=== PATIENT | female | born 1940 | race Caucasian/White ===

== ENCOUNTER 2020-01-30 15:42 | Outpatient (CLI) | payer OTHER, SELFPAY ==
--- NOTE | ~2020-01-30 | US_ITS ---
US venous doppler [facility] DATE: 01/30/2020 17:29 INDICATION: Left lower extremity pain TECHNIQUE: Real-time and color flow imaging and Doppler analysis of the veins of the left lower extre mity COMPARISON: None FINDINGS: The left greater saphenous vein is patent. There is spontaneous and phasic flow and normal augmentation and compression of the deep veins of the left lower extremity. IMPRESSION: No evidence of deep venous thrombosis of the left lower extremity Reviewed, dictated and finalized at Location [facility]. Reviewed, dictated and finalized at location A.
== END 2020-01-30 15:43 | disposition home or self-care (01) ==
PROVIDERS: PCP Family Medicine; Visit Provider Physician Assistant
DX: E66.9 Obesity, unspecified (principal); M79.606 Pain in leg, unspecified; M79.89 Other specified soft tissue disorders
CPT/HCPCS: 93971

== ENCOUNTER → 2020-02-29 11:05 | Outpatient (CLI) | payer OTHER, SELFPAY ==
--- NOTE | ~2020-02-29 | DEXA_ITS ---
Bone Density Report Name: Klaudia Larry Age: 79 Sex: Female Ethnicity: White Date of : 1940 Indication: postmenopausal; screening for osteoporosis; Referring Provider: Yumiko Diaz Study: Bone densitometry was performed. Exam Date: February 29, 2020 Accession number: [id number] Bone Density: Region BMD T-score Z-score Classification AP Spine (L2, L3, L4) 1.176 0.9 3.6 Normal Femoral Neck (Left) 0.837 -0.1 2.2 Normal Total Hip (Left) 0.941 0.0 2.0 Normal Femoral Neck (Right) 0.766 -0.7 1.5 Normal Total Hip (Right) 1.047 0.9 2.9 Normal Total Hip Mean 0.994 0.5 2.5 Normal World Health Organization criteria for BMD impression classify patients as: Normal (T-score at or above -1.0), Osteopenia (T-score between -1.0 and -2.5), or Osteoporosis (T-score at or below -2.5). 10-year Fracture Risk: FRAX not reported because: All T-scores for Spine Total, Hip Total, Femoral Neck at or above -1.0 Previous Exams: Region Exam Age BMD T-score BMD Change BMD Change Date g/cm2 vs Baseline vs Previous AP Spine(L2, L3, L4) 02/29/2020 79 1.176 0.9 -0.025 0.002 11/14/2016 76 1.174 0.9 -0.026 -0.041* 07/09/2011 71 1.215 1.2 0.015 0.015 03/26/2009 68 1.200 1.1 Total Hip(Left) 02/29/2020 79 0.941 0.0 -0.071 -0.037* 11/14/2016 76 0.978 0.3 -0.034 -0.059* 07/09/2011 71 1.037 0.8 0.025 0.025 03/26/2009 68 1.012 0.6 Total Hip(Right) 02/29/2020 79 1.047 0.9 0.099 -0.021 11/14/2016 76 1.067 1.0 0.120 0.061* 07/09/2011 71 1.006 0.5 0.058 0.058 03/26/2009 68 0.948 0.0 *Denotes significance at 95% confidence level, LSC for AP Spine = 0.022 g/cm2, LSC for Total Hip = 0.027 g/cm2 Clinical Information Provided by Patient: Patient maximum height was 66 Menopause Age: 50 No regular weight bearing exercise Does not regularly consume dairy products Drinks caffeinated beverages Onset of menses at age 13 Number of children 2 Impression: The patient has normal bone mass. The BMD for the Total Hip(Left) decreased, changing by -0.037 since the last DXA exam. Discussion: BONE DENSITY IS ABOVE THE MINIMUM DESIRABLE LEVEL AT ALL SKELETAL SITES TESTED. This patient?s bone mineral density is above the minimum desirable level (T-score -
== END ==
PROVIDERS: PCP Family Medicine; Visit Provider Physician Assistant
DX: Z78.0 Asymptomatic menopausal state (principal)
CPT/HCPCS: 77080

== ENCOUNTER 2020-12-05 15:11 | Outpatient (CLI) | payer OTHER, SELFPAY ==
--- NOTE | ~2020-12-05 | XR_ITS ---
XR lumbar spine 2-3V DATE: 12/05/2020 15:47 INDICATION: Back pain, lumbar radiculopathy. TECHNIQUE: AP, lateral, coned lateral lumbosacral views COMPARISON: 08/15/2013 lumbar spine FINDINGS: There is diffuse osteopenia. There is mild levoscoliosis of the lower thoracic and lumbar spine. Diffuse idiopathic skeletal hyperostosis of the thoracic spine. Status post vertebroplasty at compression fracture at the first functional lumbar vertebra. No interval fracture or evidence of bone destruction since 08/15/2013. The lumbar pedicles are intact. Lumbar and lumbosacral interspaces are relatively well preserved, with minimal degenerative spurring of the lumbar spine. The sacroiliac joints are unremarkable. IMPRESSION: Mild levoscoliosis Status post vertebroplasty at L1 chronic compression fracture No significant change since 08/15/2013 Reviewed, dictated and finalized at location A.
== END 2020-12-05 15:12 | disposition home or self-care (01) ==
PROVIDERS: PCP Family Medicine; Visit Provider Nurse Practitioner Family
DX: M54.16 Radiculopathy, lumbar region (principal); M41.9 Scoliosis, unspecified; M48.56XA Collapsed vertebra, not elsewhere classified, lumbar region, initial encounter for fracture
CPT/HCPCS: 72100

== ENCOUNTER 2022-03-01 12:59 | Outpatient (CLI) | payer OTHER, SELFPAY ==
--- NOTE | ~2022-03-01 | XR_ITS ---
EXAMINATION: XR chest 2V Exam Date/Time: 03/01/2022 13:20 CDT HISTORY: R05.9 - Cough, unspecified x 1.5 WEEKS Comparison: None available. RESULT: Lines, tubes, and devices: Vertebral body cement at the thoracolumbar junction. Lungs and pleura: Senescent change. Bibasilar atelectasis. Scattered peripheral reticulonodular opac ities. Cardiomediastinal silhouette: Stable. Other: No acute osseous or upper abdominal finding. IMPRESSION: Pulmonary opacities may represent bronchiolitis, as can be seen with atypical infection, asthma, aspi ration, and small airways disease. Reviewed, dictated and finalized at location K. IMPRESSION: Pulmonary opacities may represent bronchiolitis, as can be seen with atypical i nfection, asthma, aspiration, and small airways disease.
== END 2022-03-01 13:00 | disposition home or self-care (01) ==
PROVIDERS: PCP Family Medicine; Visit Provider Physician Assistant
DX: R05.9 Cough, unspecified (principal); R91.8 Other nonspecific abnormal finding of lung field
CPT/HCPCS: 71046

== ENCOUNTER 2024-04-30 09:58 | Inpatient (IN) | payer OTHER, SELFPAY ==
[2024-04-30] VITALS (35 sets, daily range): BP systolic 86–128; BP diastolic 55–106; PULSE 92–147; RESP 17–33; TEMP 36.1–36.6; O2SAT 72–100; BMI 41.8; BMI 48.4
--- NOTE | ~2024-04-30 | XR_ITS ---
XR chest 1V DATE: 04/30/2024 11:35 INDICATION: Dyspnea TECHNIQUE: AP views on 04/30/2024 at 2330 and 2332 hours COMPARISON: 04/30/2024 CTA chest abdomen pelvis FINDINGS: Cardiomegaly aortic arch calcification. Mild lower lobe infiltrates and/or atelectasis. Moderate pleural effusions are demonstrated to better advantage on the CT examination today. Status post vertebroplasty at T12. Dextroscoliosis and diffuse idiopathic skeletal hyperostosis of the thoracic spine. IMPRESSION: Moderate pleural effusions, better demonstrated on CT examination today Bilateral lower lobe infiltrate and/or atelectasis Cardiomegaly, aortic atherosclerosis Status post vertebroplasty at T12 fracture Reviewed, dictated and finalized at location A. F LOAD DISPATCHER IMPRESSION: Moderate pleural effusions, better demonstrated on CT examination t deysi Bilateral lower lobe infiltrate and/or atelectasis Cardiomegaly, aortic atherosclerosis Status post vertebroplasty at T12 fracture
--- NOTE | ~2024-04-30 | CT_ITS ---
EXAMINATION: CTA chest PE abdomen pel DATE: 04/30/2024 11:28 INDICATION: Hypoxia TECHNIQUE: Computed tomography angiography (CTA) of the chest was performed with 100 mL Omnipaque-350 intravenous contrast timed to evaluate the pulmonary arteries. Coronal maximum intensity projection 3D-reconstructions were created by the technologist. Automated exposure control and iterative reconst ruction technique were employed. Exam dose: 2456.46 mGy-cm total exam DLP. COMPARISON: 03/01/2022 PA and lateral chest FINDINGS: There is diagnostic contrast enhancement of the pulmonary arteries. There is mild pulmonary embolism involving the right upper and middle lobes. There is thoracic aortic calcification but no thoracic aortic aneurysm or dissection. There is enlargement of the lower pole of the left then the thyroid gland which extends into the supe rior mediastinum. No hilar or mediastinal mass lesion or lymphadenopathy is noted otherwise. Cardiomegaly. No pericardial effusion. There are moderate bilateral pleural effusions. There are bilateral lower lobe infiltrates as well as compressive atelectasis of both lower lobes sec ondary to the effusions. There is minimal dependent left upper lobe atelectasis. Status post cholecystectomy. No hepatic, splenic, pancreatic, adrenal space-occupying mass lesion. No bile duct or pancreatic duct dilatation is detected. 1 cm upper pole right renal cyst Approximately 3 mm nonobstructing right renal calculus. 3.4 cm exophytic left renal cyst. No ureteral calculus or hydroureteronephrosis is noted on either side. There is atherosclerotic calcification but normal caliber of the abdominal aorta. No intraperitoneal or retroperitoneal or pelvic mass lesion or adenopathy or ascites is noted. The urinary bladder is relatively evacuated and not optimally evaluated as a result. 2.4 cm probable serosal fibroid of the anterolateral left uterine body. No evidence of appendicitis. No bowel obstruction or intraperitoneal free air. Diffuse idiopathic skeletal hyperostosis of the thoracic spine Status post vertebroplasty at burst fracture deformity at T12. Prominent degenerative change at the possible joints of the lumbar spine with associated grade 1 ante rolisthesis at L4-5. Approximately 1 cm sclerotic lesion of the left iliac crest, 1.9 cm sclerotic lesion of the right kelly ac crest, most likely benign bone islands IMPRESSION: Mild pulmonary embolism involving right upper and middle lobes Left thyroid enlargement Cardiomegaly Moderate bilateral pleural effusions Bilateral lower lobe infiltrates and atelectasis Status post cholecystectomy Bilateral renal cysts 3 mm nonobstructing right renal calculus Status post vertebroplasty at burst fracture of T12 Reviewed, dictated and finalized at Location [facility]. Reviewed, dictated and finalized at location A. SORTER
--- NOTE | 2024-04-30 10:12 | ECG_ITS ---
Test Date: 2024-04-30 10:20:05 Measurements Intervals [place] Rate: 141 P: 0 RI: 0 QRS: -45 QRSD: 94 T: 57 QT: 273 QTc: 419 Interpretive Statements ATRIAL FIBRILLATION WITH RAPID VENTRICULAR RESPONSE VENTRICULAR COUPLET AND VENTRICULAR PREMATURE COMPLEXES LEFT AXIS DEVIATION LOW QRS VOLTAGE IN LIMB LEADS ANTEROSEPTAL INFARCT, AGE INDETERMINATE INFERIOR INFARCT, AGE INDETERMINATE BASELINE ARTIFACT- I, II, III, AVR, AVL, AVF, V1-V3 ABNORMAL ECG No previous ECG available for comparison Electronically Signed On 04-30-2024 14:02:18 NURSING SCHEDULER by Ryland Mckeon D.O.
[2024-04-30 10:31] LABS: Basophils Absolute Auto 0.1 K/mm3 (0.0-0.1); Basophils Percent Auto 0.7 % (0.2-1.2); Eosinophils Absolute Auto 0.2 K/mm3 (0-0.3); Eosinophils Percent Auto 1.6 % (0-4.4); Hematocrit 43.3 % (37.0-47.0); Hemoglobin 13.3 g/dL (12.0-15.0); Immature Granulocyte Absolute 0.04 K/mm3 (0.00-0.031); Immature Granulocyte Percent A 0.4 % (0-0.5); Lymphocytes Percent Auto 25.1 % (18.3-44.2); Mean Corpuscular HGB Conc 30.7 g/dl (32-36); Mean Corpuscular Hemoglobin 32.3 pg (26-34); Mean Corpuscular Volume 105.1 fl (80-100); Mean Platelet Volume 11.1 fl (7.4-10.4); Monocytes Absolute Auto 0.6 K/mm3 (0.1-0.6); Monocytes Percent Auto 5.9 % (2.6-8.5); Neutrophils Absolute Auto 6.6 K/mm3 (1.3-6.7); Neutrophils Percent Auto 66.3 % (45.5-73.1); Platelet Count Result 200 k/mm3 (150-375); Red Blood Count 4.12 M/mm3 (4.2-5.4); Red Cell Distribution Width 14.2 % (11.5-14.5)
[2024-04-30] MEDS: SODIUM CHLORIDE 0.9% IV 1,000 ML 999 ML IV CONT ×2 (10:38→12:23)
[2024-04-30 10:40] LABS: Lactic Acid Reflex 3.7 mmol/L (0.7-2.0)
[2024-04-30] MEDS: IPRATROPIUM 0.5 MG/ALBUTEROL SULFATE 2.5 MG AMPUL.NEB 3 ML INHALATION (10:40)
[2024-04-30 10:41] LABS: Alanine Aminotransferase 13 U/L (6-35); Alkaline Phosphatase 66 U/L (38-126); Anion Gap 8 mmol/L (4-12); Aspartate Amino Transferase 23 U/L (14-36); Bilirubin,Total 0.5 mg/dL (0.2-1.3); Blood Urea Nitrogen 15 mg/dL (7-17); Carbon Dioxide 26 mmol/L (22-30); Chloride 103 mmol/L (98-107); Estimated CRCL calculation 25 ml/min; Estimated Glomerular Filt Rate 25; Glucose 180 mg/dL (65-110); Magnesium 1.9 mg/dL (1.6-2.3); Potassium 4.4 mmol/L (3.4-5.0); Sodium 137 mmol/L (137-145)
[2024-04-30 10:51] LABS: Macrocytosis 1+ (NORMAL); Platelet Estimate Adequate (Adequate); Poikilocytosis 1+; Schistocytes None Seen
[2024-04-30 10:53] LABS: NT Pro B Type Natriuretic Pept 3020 pg/mL (19.9-100); Troponin I 0.023 ng/mL (0.000-0.034)
--- NOTE | 2024-04-30 10:57 | ED.GENADULT ---
HPI - General Adult General Chief complaint: Unspecified Stated complaint: constipation, not sleeping, abd pain, cough Time Seen by Provider: 04/30/24 10:14 Source: patient Mode of arrival: ambulatory Limitations: no limitations History of Present Illness HPI narrative: Is an 84-year-old female with history of hypertension, anxiety, presents emergency department complaining shortness of breath and the sensation of passing. The patient states she difficulty sleeping over night. She attempted to take 1 of her blood pressure medications accidentally took a dose of tramadol. She complains intermittent lightheadedness and difficulty breathing. She also complains of abdominal pain and distension those able to pass gas and denies blood in stool. She denies chest pain lower extremity swelling, fevers, or chills. She has no other complaints at this time. Related Data Home Medications Medication Instructions Recorded Confirmed aspirin 81 mg tablet,delayed 81 mg PO DAILY 02/20/21 02/24/24 release (Adult Aspirin Regimen) tolterodine 4 mg capsule,extended 4 mg PO DAILY 03/09/23 02/24/24 release 24 hr Allergies Allergy/AdvReac Type Severity Reaction Status Date / Time alendronate sodium Allergy Unknown gastritis Verified 04/30/24 10:35 pravastatin Allergy Unknown unknown Verified 04/30/24 10:35 No Known Allergies Allergy Verified 04/30/24 10:35 Review of Systems Review of Systems: All systems reviewed & are unremarkable except as noted in HPI and below PMFSH Past Medical History Medical History (Updated 04/30/24 @ 14:11 by Efrain Mathews MD) Allergic sinusitis Anxiety Body mass index (BMI) 40.0-44.9, adult Chronic kidney disease, stage 3a Chronic low back pain Diffuse idiopathic skeletal hyperostosis Esophageal web Gastro-esophageal reflux disease without esophagitis Generalized anxiety disorder History of tobacco use Keratolysis exfoliativa Morbid obesity due to excess calories Obesity hypoventilation syndrome Opioid dependence with current use Peripheral vascular disease, unspecified Pre-diabetes Schatzki's ring Spondylosis with myelopathy, lumbar region Surgical History Surgical History (Updated 04/30/24 @ 13:59 by Maricel Priest PA-C) History of colonoscopy with polypectomy History of esophageal dilatation History of meniscectomy of right knee History of vertebroplasty Family History Family History Mother Asthma Patient's mother is in good health Sibling Patient's sister is in good health Patient's brother is in good health Other Family history of arthritis Social History Social History (Updated 04/30/24 @ 13:59 by Maricel Priest PA-C) Social History: Surrogate medical decision maker: Code status: Full code. Smoking packs per day: 2 Smoking cigarettes per day: 40.0 Years smoked: 10 Smoking pack-years: 20.00 Smoking status: Former smoker Tobacco type: cigarettes Second hand tobacco smoke exposure: No Smoking end date: 06/01/01 Alcohol intake: never Substance use: never Substance use type: does not use Lack of Transportation: No Lack of Food: Never True Current Housing: I Have Housing Concerned About Future Housing: No Difficulty Paying Gas/Electric Bills: No Difficulty Paying for Meds: No Currently Unemployed: YES Education: High School Diploma/GED Difficulty w/ Childcare or Family Care: No Living arrangements: with family Occupation/Education: retired Spiritual care concerns: No Agree to blood products: Yes Exam Narrative: GENERAL: Well-developed, well-nourished, and in no acute distress. Very anxious HEAD: Normocephalic, atraumatic. EYES: PERRLA and EOMI. NECK: Supple. No JVD CHEST: Clear to auscultation. No respiratory distress. No wheezes rales or rhonchi HEART: Irregularly irregular rhythm. No murmur heard. Normal peripheral pulses. ABDOMEN: Soft, tender to palpation in the suprapubic and right lower quadrant without rebound or guarding, mildly distended, normal active bowel sounds. EXTREMITIES: Normal range of motion. No edema. SKIN: Warm, dry, no rash. NEURO: Alert and oriented x3. No focal deficit. Moving all 4 limbs spontaneously PSYCH: Normal mood and affect. Course Course Emergency Course: 10:15 - The patient's exam and lightheadedness is concerning for PE verses new onset CHF. I have low suspicion for sepsis at this time. Will give IV fluids cautiously, obtain CT PE be and re-evaluate. 13:34 - CT PE demonstrates right middle lobe PE as well as lower lobe infiltrates concerning for infection and bilateral pleural effusions. I suspect a combination of pneumonia and PE. The patient's heart rate improved with BiPAP and 5 mg IV metoprolol. Her blood pressure is improved to 120 3/98 with IV fluids. Initial lactic 3.7 with creatinine elevated to 1.9 with a baseline of 1.2. White blood cell count not elevated at 10 hemoglobin hematocrit within normal limits and platelets 200. The patient has a negative for COVID influenza. Considering the infiltrates seen on CT will start antibiotics and heparin for PEs. I discussed the patient with hospitalist ZORA Priest who accepts admission. Vital Signs Vital signs: Vital Signs Temperature 97.6 F 04/30/24 10:09 Pulse Rate 140 H 04/30/24 10:09 Respiratory Rate 26 H 04/30/24 10:09 Blood Pressure 96/68 L 04/30/24 10:09 Pulse Oximetry 72 L 04/30/24 10:09 Oxygen Delivery Room Air 04/30/24 10:09 Temperature 97.6 F 04/30/24 10:09 Pulse Rate 126 H 04/30/24 12:23 Respiratory Rate 32 H 04/30/24 12:20 Blood Pressure 128/95 H 04/30/24 10:27 Pulse Oximetry 98 04/30/24 12:20 Oxygen Delivery BiPAP 04/30/24 12:20 Oxygen Flow Rate 6 04/30/24 10:40 Fraction of Inspired Oxygen 40 04/30/24 12:20 Medical Decision Making [facility] Narrative Medical decision making narrative: Plan: Labs, imaging, EKG, troponin, IV fluids, reassess Differential Diagnosis Differential Diagnosis: PE, ACS, new onset CHF, renal failure, bowel obstruction, metabolic abnormality Vital Signs Vital Signs: Vital Signs Temperature 97.6 F 04/30/24 10:09 Pulse Rate 140 H 04/30/24 10:09 Respiratory Rate 26 H 04/30/24 10:09 Blood Pressure 96/68 L 04/30/24 10:09 Pulse Oximetry 72 L 04/30/24 10:09 Oxygen Delivery Room Air 04/30/24 10:09 Temperature 97.6 F 04/30/24 10:09 Pulse Rate 126 H 04/30/24 12:23 Respiratory Rate 32 H 04/30/24 12:20 Blood Pressure 128/95 H 04/30/24 10:27 Pulse Oximetry 98 04/30/24 12:20 Oxygen Delivery BiPAP 04/30/24 12:20 Oxygen Flow Rate 6 04/30/24 10:40 Fraction of Inspired Oxygen 40 04/30/24 12:20 Lab Data 04/30/24 10:24 04/30/24 10:24 Labs: Lab Results 04/30/24 04/30/24 04/30/24 Range/Units 10:24 10:24 10:24 WBC 10.0 (4.5-10.0) K/mm3 RBC 4.12 L (4.2-5.4) M/mm3 Hgb 13.3 (12.0-15.0) g/dL Hct 43.3 (37.0-47.0) % MCV 105.1 H (80-100) fl MCH 32.3 (26-34) pg MCHC 30.7 L (32-36) g/dl RDW 14.2 (11.5-14.5) % Plt Count 200 (150-375) k/mm3 MPV 11.1 H (7.4-10.4) fl Immature Gran % (Auto) 0.4 (0-0.5) % Neut % (Auto) 66.3 (45.5-73.1) % Lymph % (Auto) 25.1 (18.3-44.2) % Tyrrell % (Auto) 5.9 (2.6-8.5) % Eos % (Auto) 1.6 (0-4.4) % Baso % (Auto) 0.7 (0.2-1.2) % Lymph # (Auto) 2.50 (0.9-3.2) K/mm3 Tyrrell # (Auto) 0.6 (0.1-0.6) K/mm3 Eos # (Auto) 0.2 (0-0.3) K/mm3 Baso # (Auto) 0.1 (0.0-0.1) K/mm3 Abs Immat Gran (auto) 0.04 H (0.00-0.031) K/mm3 Absolute Neuts (auto) 6.6 (1.3-6.7) K/mm3 Absolute Nucleated RBC 0.000 (0.0-0.012) K/mm3 Nucleated RBC % 0.0 (0.0-0.2) % Platelet Estimate Adequate (Adequate) Poikilocytosis 1+ Macrocytosis 1+ (NORMAL) Schistocytes None seen PT 14.1 (11.1-14.7) Seconds INR 1.1 APTT 26.0 (22.3-36.8) Seconds Sodium Cancelled 137 Potassium Cancelled 4.4 Chloride Cancelled Carbon Dioxide Anion Gap BUN Creatinine Estim Creat Clear Calc Estimated GFR Glucose Lactic Acid (0.7-2.0) mmol/L Calcium Magnesium (1.6-2.3) mg/dL Total Bilirubin AST ALT Alkaline Phosphatase Troponin I (0.000-0.034) ng/mL NT-Pro-B Natriuret Pep (19.9-100) pg/mL Total Protein Albumin Influenza A (RT-PCR) (Negative) Influenza B (RT-PCR) (Negative) SARS-CoV-2 RNA (RT-PCR) (Negative) 04/30/24 04/30/24 04/30/24 Range/Units 10:24 10:24 10:24 WBC (4.5-10.0) K/mm3 RBC (4.2-5.4) M/mm3 Hgb (12.0-15.0) g/dL Hct (37.0-47.0) % MCV (80-100) fl MCH (26-34) pg MCHC (32-36) g/dl RDW (11.5-14.5) % Plt Count (150-375) k/mm3 MPV (7.4-10.4) fl Immature Gran % (Auto) (0-0.5) % Neut % (Auto) (45.5-73.1) % Lymph % (Auto) (18.3-44.2) % Tyrrell % (Auto) (2.6-8.5) % Eos % (Auto) (0-4.4) % Baso % (Auto) (0.2-1.2) % Lymph # (Auto) (0.9-3.2) K/mm3 Tyr[place] # (Auto) (0.1-0.6) K/mm3 Eos # (Auto) (0-0.3) K/mm3 Baso # (Auto) (0.0-0.1) K/mm3 Abs Immat Gran (auto) (0.00-0.031) K/mm3 Absolute Neuts (auto) (1.3-6.7) K/mm3 Absolute Nucleated RBC (0.0-0.012) K/mm3 Nucleated RBC % (0.0-0.2) % Platelet Estimate (Adequate) Poikilocytosis Macrocytosis (NORMAL) Schistocytes PT (11.1-14.7) Seconds INR APTT (22.3-36.8) Seconds Sodium Potassium Chloride 103 Carbon Dioxide Cancelled 26 Anion Gap Cancelled 8 BUN Cancelled Creatinine Estim Creat Clear Calc Estimated GFR Glucose Lactic Acid (0.7-2.0) mmol/L Calcium Magnesium (1.6-2.3) mg/dL Total Bilirubin AST ALT Alkaline Phosphatase Troponin I (0.000-0.034) ng/mL NT-Pro-B Natriuret Pep (19.9-100) pg/mL Total Protein Albumin Influenza A (RT-PCR) (Negative) Influenza B (RT-PCR) (Negative) SARS-CoV-2 RNA (RT-PCR) (Negative) 04/30/24 04/30/24 04/30/24 Range/Units 10:24 10:24 10:24 WBC (4.5-10.0) K/mm3 RBC (4.2-5.4) M/mm3 Hgb (12.0-15.0) g/dL Hct (37.0-47.0) % MCV (80-100) fl MCH (26-34) pg MCHC (32-36) g/dl RDW (11.5-14.5) % Plt Count (150-375) k/mm3 MPV (7.4-10.4) fl Immature Gran % (Auto) (0-0.5) % Neut % (Auto) (45.5-73.1) % Lymph % (Auto) (18.3-44.2) % Tyrrell % (Auto) (2.6-8.5) % Eos % (Auto) (0-4.4) % Baso % (Auto) (0.2-1.2) % Lymph # (Auto) (0.9-3.2) K/mm3 Tyrrell # (Auto) (0.1-0.6) K/mm3 Eos # (Auto) (0-0.3) K/mm3 Baso # (Auto) (0.0-0.1) K/mm3 Abs Immat Gran (auto) (0.00-0.031) K/mm3 Absolute Neuts (auto) (1.3-6.7) K/mm3 Absolute Nucleated RBC (0.0-0.012) K/mm3 Nucleated RBC % (0.0-0.2) % Platelet Estimate (Adequate) Poikilocytosis Macrocytosis (NORMAL) Schistocytes PT (11.1-14.7) Seconds INR APTT (22.3-36.8) Seconds Sodium Potassium Chloride Carbon Dioxide Anion Gap BUN 15 Creatinine Cancelled 1.90 H Estim Creat Clear Calc Cancelled 25 Estimated GFR Cancelled Glucose Lactic Acid (0.7-2.0) mmol/L Calcium Magnesium (1.6-2.3) mg/dL Total Bilirubin AST ALT Alkaline Phosphatase Troponin I (0.000-0.034) ng/mL NT-Pro-B Natriuret Pep (19.9-100) pg/mL Total Protein Albumin Influenza A (RT-PCR) (Negative) Influenza B (RT-PCR) (Negative) SARS-CoV-2 RNA (RT-PCR) (Negative) 04/30/24 04/30/24 04/30/24 Range/Units 10:24 10:24 10:24 WBC (4.5-10.0) K/mm3 RBC (4.2-5.4) M/mm3 Hgb (12.0-15.0) g/dL Hct (37.0-47.0) % MCV (80-100) fl MCH (26-34) pg MCHC (32-36) g/dl RDW (11.5-14.5) % Plt Count (150-375) k/mm3 MPV (7.4-10.4) fl Immature Gran % (Auto) (0-0.5) % Neut % (Auto) (45.5-73.1) % Lymph % (Auto) (18.3-44.2) % Tyrrell % (Auto) (2.6-8.5) % Eos % (Auto) (0-4.4) % Baso % (Auto) (0.2-1.2) % Lymph # (Auto) (0.9-3.2) K/mm3 [place] # (Auto) (0.1-0.6) K/mm3 Eos # (Auto) (0-0.3) K/mm3 Baso # (Auto) (0.0-0.1) K/mm3 Abs Immat Gran (auto) (0.00-0.031) K/mm3 Absolute Neuts (auto) (1.3-6.7) K/mm3 Absolute Nucleated RBC (0.0-0.012) K/mm3 Nucleated RBC % (0.0-0.2) % Platelet Estimate (Adequate) Poikilocytosis Macrocytosis (NORMAL) Schistocytes PT (11.1-14.7) Seconds INR APTT (22.3-36.8) Seconds Sodium Potassium Chloride Carbon Dioxide Anion Gap BUN Creatinine Estim Creat Clear Calc Estimated GFR 25 L Glucose Cancelled 180 H Lactic Acid 3.7 H (0.7-2.0) mmol/L Calcium Cancelled 10.0 Magnesium 1.9 (1.6-2.3) mg/dL Total Bilirubin Cancelled AST ALT Alkaline Phosphatase Troponin I (0.000-0.034) ng/mL NT-Pro-B Natriuret Pep (19.9-100) pg/mL Total Protein Albumin Influenza A (RT-PCR) (Negative) Influenza B (RT-PCR) (Negative) SARS-CoV-2 RNA (RT-PCR) (Negative) 04/30/24 04/30/24 04/30/24 Range/Units 10:24 10:24 10:24 WBC (4.5-10.0) K/mm3 RBC (4.2-5.4) M/mm3 Hgb (12.0-15.0) g/dL Hct (37.0-47.0) % MCV (80-100) fl MCH (26-34) pg MCHC (32-36) g/dl RDW (11.5-14.5) % Plt Count (150-375) k/mm3 MPV (7.4-10.4) fl Immature Gran % (Auto) (0-0.5) % Neut % (Auto) (45.5-73.1) % Lymph % (Auto) (18.3-44.2) % Tyrrell % (Auto) (2.6-8.5) % Eos % (Auto) (0-4.4) % Baso % (Auto) (0.2-1.2) % Lymph # (Auto) (0.9-3.2) K/mm3 [place] # (Auto) (0.1-0.6) K/mm3 Eos # (Auto) (0-0.3) K/mm3 Baso # (Auto) (0.0-0.1) K/mm3 Abs Immat Gran (auto) (0.00-0.031) K/mm3 Absolute Neuts (auto) (1.3-6.7) K/mm3 Absolute Nucleated RBC (0.0-0.012) K/mm3 Nucleated RBC % (0.0-0.2) % Platelet Estimate (Adequate) Poikilocytosis Macrocytosis (NORMAL) Schistocytes PT (11.1-14.7) Seconds INR APTT (22.3-36.8) Seconds Sodium Potassium Chloride Carbon Dioxide Anion Gap BUN Creatinine Estim Creat Clear Calc Estimated GFR Glucose Lactic Acid (0.7-2.0) mmol/L Calcium Magnesium (1.6-2.3) mg/dL Total Bilirubin 0.5 AST Cancelled 23 ALT Cancelled 13 Alkaline Phosphatase Cancelled Troponin I (0.000-0.034) ng/mL NT-Pro-B Natriuret Pep (19.9-100) pg/mL Total Protein Albumin Influenza A (RT-PCR) (Negative) Influenza B (RT-PCR) (Negative) SARS-CoV-2 RNA (RT-PCR) (Negative) 04/30/24 04/30/24 04/30/24 Range/Units 10:24 10:24 10:24 WBC (4.5-10.0) K/mm3 RBC (4.2-5.4) M/mm3 Hgb (12.0-15.0) g/dL Hct (37.0-47.0) % MCV (80-100) fl MCH (26-34) pg MCHC (32-36) g/dl RDW (11.5-14.5) % Plt Count (150-375) k/mm3 MPV (7.4-10.4) fl Immature Gran % (Auto) (0-0.5) % Neut % (Auto) (45.5-73.1) % Lymph % (Auto) (18.3-44.2) % Tyrrell % (Auto) (2.6-8.5) % Eos % (Auto) (0-4.4) % Baso % (Auto) (0.2-1.2) % Lymph # (Auto) (0.9-3.2) K/mm3 [place]rell # (Auto) (0.1-0.6) K/mm3 Eos # (Auto) (0-0.3) K/mm3 Baso # (Auto) (0.0-0.1) K/mm3 Abs Immat Gran (auto) (0.00-0.031) K/mm3 Absolute Neuts (auto) (1.3-6.7) K/mm3 Absolute Nucleated RBC (0.0-0.012) K/mm3 Nucleated RBC % (0.0-0.2) % Platelet Estimate (Adequate) Poikilocytosis Macrocytosis (NORMAL) Schistocytes PT (11.1-14.7) Seconds INR APTT (22.3-36.8) Seconds Sodium Potassium Chloride Carbon Dioxide Anion Gap BUN Creatinine Estim Creat Clear Calc Estimated GFR Glucose Lactic Acid (0.7-2.0) mmol/L Calcium Magnesium (1.6-2.3) mg/dL Total Bilirubin AST ALT Alkaline Phosphatase 66 Troponin I 0.023 (0.000-0.034) ng/mL NT-Pro-B Natriuret Pep 3020 H Cancelled (19.9-100) pg/mL Total Protein Cancelled 7.0 Albumin Cancelled Influenza A (RT-PCR) (Negative) Influenza B (RT-PCR) (Negative) SARS-CoV-2 RNA (RT-PCR) (Negative) 04/30/24 Range/Units 10:24 WBC (4.5-10.0) K/mm3 RBC (4.2-5.4) M/mm3 Hgb (12.0-15.0) g/dL Hct (37.0-47.0) % MCV (80-100) fl MCH (26-34) pg MCHC (32-36) g/dl RDW (11.5-14.5) % Plt Count (150-375) k/mm3 MPV (7.4-10.4) fl Immature Gran % (Auto) (0-0.5) % Neut % (Auto) (45.5-73.1) % Lymph % (Auto) (18.3-44.2) % Tyrrell % (Auto) (2.6-8.5) % Eos % (Auto) (0-4.4) % Baso % (Auto) (0.2-1.2) % Lymph # (Auto) (0.9-3.2) K/mm3 [place]rell # (Auto) (0.1-0.6) K/mm3 Eos # (Auto) (0-0.3) K/mm3 Baso # (Auto) (0.0-0.1) K/mm3 Abs Immat Gran (auto) (0.00-0.031) K/mm3 Absolute Neuts (auto) (1.3-6.7) K/mm3 Absolute Nucleated RBC (0.0-0.012) K/mm3 Nucleated RBC % (0.0-0.2) % Platelet Estimate (Adequate) Poikilocytosis Macrocytosis (NORMAL) Schistocytes PT (11.1-14.7) Seconds INR APTT (22.3-36.8) Seconds Sodium Potassium Chloride Carbon Dioxide Anion Gap BUN Creatinine Estim Creat Clear Calc Estimated GFR Glucose Lactic Acid (0.7-2.0) mmol/L Calcium Magnesium (1.6-2.3) mg/dL Total Bilirubin AST ALT Alkaline Phosphatase Troponin I (0.000-0.034) ng/mL NT-Pro-B Natriuret Pep (19.9-100) pg/mL Total Protein Albumin 4.0 Influenza A (RT-PCR) Negative (Negative) Influenza B (RT-PCR) Negative (Negative) SARS-CoV-2 RNA (RT-PCR) Negative (Negative) ECG Data EKG #1: Attestation: I personally reviewed and interpreted this ECG as follows: ECG completion date: 04/30/24 ECG completion time: 10:20 Prior ECG tracings: not available for review Interpretation: AFib RVR, rate 141, left axis deviation, no ST segment elevations or T-wave inversions concerning for ischemia, otherwise normal intervals with QTC of 419. Discharge Plan Discharge Clinical Impression: Pneumonia, Atrial fibrillation with RVR, Pulmonary embolism, Pleural effusion Patient Disposition: Still a Patient Condition: Serious Prescriptions: No Action tolterodine 4 mg capsule,extended release 24hr 4 mg PO DAILY Patient Comments: as per Dr. Naylor loratadine 10 mg capsule 10 mg PO DAILY Qty: 100 1RF albuterol sulfate 90 mcg/actuation HFA aerosol inhaler See Rx Instructions .ROUTE .COMPLEX Qty: 6.7 0RF Dose Instruction: INHALE 1 PUFF BY MOUTH EVERY 4 HOURS NEEDED FOR SHORTNESS OF BREATH Rx Instructions: INHALE 1 PUFF BY MOUTH EVERY 4 HOURS NEEDED FOR SHORTNESS OF BREATH aspirin [Adult Aspirin Regimen] 81 mg tablet,delayed release (DR/EC) 81 mg PO DAILY fluticasone propionate 50 mcg/actuation spray,suspension 1 spray intranasal Q12H Qty: 18.2 3RF Rx Instructions: administer into each nostril atorvastatin 10 mg tablet See Rx Instructions .ROUTE .COMPLEX Qty: 90 1RF Dose Instruction: TAKE 1 TABLET BY MOUTH DAILY Rx Instructions: TAKE 1 TABLET BY MOUTH DAILY tramadol 50 mg tablet 50 mg PO DAILY Qty: 30 0RF clonazepam 0.5 mg tablet 0.5 mg PO DAILY PRN (Reason: panic attack(s)) Qty: 30 0RF omeprazole 40 mg capsule,delayed release(DR/EC) See Rx Instructions .ROUTE .COMPLEX Qty: 90 1RF Dose Instruction: TAKE 1 CAPSULE BY MOUTH DAILY Rx Instructions: TAKE 1 CAPSULE BY MOUTH DAILY losartan 25 mg tablet 25 mg PO DAILY Qty: 90 0RF Follow-up/Referrals: Susy Huber MD [Primary Care Provider] - Time of Disposition: 13:34
[2024-04-30 11:07] LABS: Influenza A QL RT-PCR Negative (Negative); Influenza B QL RT-PCR Negative (Negative); SARS-CoV-2 RNA PCR Negative (Negative)
[2024-04-30] MEDS: METOPROLOL TARTRATE INJ 5 MG/5 ML VIAL IV PUSH (12:23)
[2024-04-30] MEDS: DOXYCYCLINE HYCLATE 100 MG TABLET PO ×2 (12:23→22:22)
[2024-04-30 13:17] LABS: INR 1.1; Prothrombin Time 14.1 Seconds (11.1-14.7)
[2024-04-30 13:28] LABS: Reflex Lactic Acid Yes or No Add Lactic
--- NOTE | 2024-04-30 13:55 | PM.IMHP ---
H&P: HPI History of Present Illness Date/Time: 04/30/24 13:55 Chief Complaint: Shortness of breath. Narrative: This is an 84-year-old female with morbid obesity, chronic kidney disease, hypertension, hyperlipidemia, gastroesophageal reflux disease, overactive bladder, and anxiety who presented to the emergency department via private vehicle for evaluation of shortness of breath. The patient provides the following history. She has not been feeling well for about a week with productive of clear sputum, subjective fevers, and nausea. Her daughter who lives down the street has similar symptoms and she was reportedly diagnosed with walking pneumonia. Last night the patient slept poorly due to feelings of shortness of breath, cough, abdominal discomfort related to constipation, and anxiety. She was also feeling quite anxious and decided to take clonazepam however she accidentally took an extra add tramadol instead. She was eventually able to sleep however this morning she was still feeling short of breath and she came in for evaluation. She denies syncope, near syncope, headache, sore throat, chest pain, pleuritic pain, palpitations, vomiting, and calf pain. She has no known history of sleep apnea and denies concerns for the same. She denies significant caffeine and alcohol use. No drug use. In the ED: She appeared anxious with labored breathing on arrival to triage with an SpO2 of 72% on room air. She was in sinus tachycardia with rates in the 140s and initial blood pressure of 96/68. Labs were significant for a creatinine 1.90, lactic acid 3.7, proBNP 3020, troponin 0.023. CTA of the chest, abdomen, and pelvis showed evidence of mild pulmonary embolism involving the right upper and middle lobes, moderate bilateral pleural effusions, bilateral lower lobe infiltrates and atelectasis, and cardiomegaly. She was given a 2 L normal saline bolus with improvement blood pressures, metoprolol 5 mg IV for rapid atrial fibrillation with improvement, tract stone and doxycycline for possible pneumonia, and she was started on heparin drip for the pulmonary embolism. She is being admitted in this setting for further treatment and evaluation. Review of Systems Review of Systems: 12 systems were reviewed and are negative except for as per HPI. [facility] Past Medical History Medical History (Updated 04/30/24 @ 21:28 by Maricel Priest PA-C) Allergic sinusitis Anxiety Body mass index (BMI) 40.0-44.9, adult Chronic kidney disease, stage 3a Chronic low back pain Diffuse idiopathic skeletal hyperostosis Esophageal web Gastro-esophageal reflux disease without esophagitis Generalized anxiety disorder History of tobacco use Keratolysis exfoliativa Morbid obesity due to excess calories Obesity hypoventilation syndrome Opioid dependence with current use Peripheral vascular disease, unspecified Pre-diabetes Schatzki's ring Spondylosis with myelopathy, lumbar region Surgical History Surgical History (Updated 04/30/24 @ 13:59 by Maricel Priest PA-C) History of colonoscopy with polypectomy History of esophageal dilatation History of meniscectomy of right knee History of vertebroplasty Family History Family History Mother Asthma Patient's mother is in good health Sibling Patient's sister is in good health Patient's brother is in good health Other Family history of arthritis Social History Social History (Updated 04/30/24 @ 21:24 by Maricel Priest PA-C) Social History: Surrogate medical decision maker: Mami Burns, daughter. Code status: Full code. Smoking packs per day: 2 Smoking cigarettes per day: 40.0 Years smoked: 10 Smoking pack-years: 20.00 Smoking status: Former smoker Second hand tobacco smoke exposure: No Alcohol intake: never Substance use: never Substance use type: does not use Do You Feel Safe in your Home?: Yes Lack of Transportation: No Lack of Food: Never True Current Housing: I Have Housing Concerned About Future Housing: No Difficulty Paying Gas/Electric Bills: No Difficulty Paying for Meds: No Currently Unemployed: YES Education: High School Diploma/GED Difficulty w/ Childcare or Family Care: No Living arrangements: with family Occupation/Education: retired Spiritual care concerns: No Agree to blood products: Yes Meds Home Medications and Allergies Home Medications Medication Instructions Recorded Confirmed Type loratadine 10 mg capsule 10 mg PO DAILY #100 caps 02/24/24 04/30/24 Rx tramadol 50 mg tablet 50 mg PO DAILY #30 tabs 03/22/24 04/30/24 Rx clonazepam 0.5 mg tablet 0.5 mg PO DAILY PRN panic 03/23/24 04/30/24 Rx attack(s) #30 tabs losartan 25 mg tablet 25 mg PO DAILY #90 tabs 04/13/24 04/30/24 Rx atorvastatin 10 mg tablet 10 mg PO DAILY 04/30/24 04/30/24 History omeprazole 40 mg capsule,delayed 40 mg PO DAILY 04/30/24 04/30/24 History release Allergies Allergy/AdvReac Type Severity Reaction Status Date / Time alendronate sodium Allergy Unknown gastritis Verified 04/30/24 10:35 pravastatin Allergy Unknown unknown Verified 04/30/24 10:35 No Known Allergies Allergy Verified 04/30/24 10:35 Vital Signs Vital Signs - 24 hr 04/30/24 10:09 04/30/24 10:27 04/30/24 10:27 Temperature 97.6 F Pulse Rate 140 H 133 H 144 H Respiratory Rate 26 H 19 Blood Pressure 96/68 L 128/95 H Pulse Oximetry 72 L 91 Oxygen Delivery Room Air Oxygen Flow Rate Fraction of Inspired Oxygen 04/30/24 10:30 04/30/24 10:40 04/30/24 10:40 Temperature Pulse Rate 130 H Respiratory Rate 19 28 H Blood Pressure Pulse Oximetry 91 90 Oxygen Delivery Nasal Cannula Oxygen Flow Rate 5 6 Fraction of Inspired Oxygen 44 04/30/24 10:47 04/30/24 12:23 04/30/24 12:20 Temperature Pulse Rate 132 H 126 H 131 H Respiratory Rate 32 H 32 H Blood Pressure Pulse Oximetry 98 Oxygen Delivery BiPAP Oxygen Flow Rate Fraction of Inspired Oxygen 04/30/24 12:20 Temperature Pulse Rate Respiratory Rate Blood Pressure Pulse Oximetry 98 Oxygen Delivery BiPAP Oxygen Flow Rate Fraction of Inspired Oxygen 40 Exam Narrative: General: Well-developed, nontoxic-appearing elderly female sitting up in bed on BiPAP. Weight: 132 kg. BMI: 48.4. HEENT: PERRL, EOMI. Sclera anicteric. Oral mucosa appears moist through the BiPAP mask. Neck: Supple. Exam limited due to neck circumference. No obvious jugular venous distention. Respiratory: On BiPAP and able to speak freely through the mask. Lung sounds are diminished at the bases with scattered crackles and occasional rhonchi and wheezing which improved with coughing. Cardiovascular: Irregularly irregular rate and rhythm. Gastrointestinal: Abdomen is soft, obese, nontender, and nondistended with positive bowel sounds. Skin: Warm and dry. Heavily callused feet. Extremities: No cyanosis or clubbing. Mild edema of the bilateral lower extremities. No palpable knots or cords. Peripheral pulses intact. Neurological: Alert. Cranial nerves 2-12 are grossly intact. No gross focal deficits to casual conversation. Psychiatric: Cooperative with appropriate mood. A bit anxious. H&P: Results Labs Labs: Short CBC 04/30/24 Range/Units 10:24 WBC 10.0 (4.5-10.0) K/mm3 Hgb 13.3 (12.0-15.0) g/dL Hct 43.3 (37.0-47.0) % Plt Count 200 (150-375) k/mm3 BMP 04/30/24 04/30/24 04/30/24 10:24 10:24 10:24 Sodium Cancelled 137 Potassium Cancelled 4.4 Chloride Cancelled Carbon Dioxide BUN Creatinine Glucose Calcium 04/30/24 04/30/24 04/30/24 10:24 10:24 10:24 Sodium Potassium Chloride 103 Carbon Dioxide Cancelled 26 BUN Cancelled 15 Creatinine Cancelled Glucose Calcium 04/30/24 04/30/24 04/30/24 10:24 10:24 10:24 Sodium Potassium Chloride Carbon Dioxide BUN Creatinine 1.90 H Glucose Cancelled 180 H Calcium Cancelled 10.0 Cardiac Enzymes 04/30/24 Range/Units 10:24 Troponin I 0.023 (0.000-0.034) ng/mL Liver Function 04/30/24 04/30/24 04/30/24 Range/Units 10:24 10:24 10:24 Total Bilirubin Cancelled 0.5 AST Cancelled 23 ALT Cancelled Alkaline Phosphatase Albumin 04/30/24 04/30/24 04/30/24 Range/Units 10:24 10:24 10:24 Total Bilirubin AST ALT 13 Alkaline Phosphatase Cancelled 66 Albumin Cancelled 4.0 Impressions Chest/Abdomen/Pelvis CTA 04/30/24 11:59 IMPRESSION: Mild pulmonary embolism involving right upper and middle lobes Left thyroid enlargement Cardiomegaly Moderate bilateral pleural effusions Bilateral lower lobe infiltrates and atelectasis Status post cholecystectomy Bilateral renal cysts 3 mm nonobstructing right renal calculus Status post vertebroplasty at burst fracture of T12 Chest X-Ray 04/30/24 12:29 IMPRESSION: Moderate pleural effusions, better demonstrated on CT examination today Bilateral lower lobe infiltrate and/or atelectasis Cardiomegaly, aortic atherosclerosis Status post vertebroplasty at T12 fracture Assessment and Plan Assessment and plan (1) Acute respiratory failure with hypoxia: Code(s): J96.01 - Acute respiratory failure with hypoxia Status: Acute (2) Pneumonia: Qualifiers: Laterality: bilateral Lung location: lower lobe of lung Pneumonia type: due to unspecified organism Qualified Code(s): J18.9 - Pneumonia, unspecified organism Code(s): J18.9 - Pneumonia, unspecified organism Status: Acute (3) Suspected congestive heart failure: Code(s): R09.89 - Other specified symptoms and signs involving the circulatory and respiratory systems Status: Acute (4) Pulmonary emboli: Code(s): I26.99 - Other pulmonary embolism without acute cor pulmonale Status: Acute (5) Atrial fibrillation with rapid ventricular response: Code(s): I48.91 - Unspecified atrial fibrillation Status: Acute (6) Elevated troponin: Code(s): R79.89 - Other specified abnormal findings of blood chemistry Status: Acute Plan The patient presented to the emergency department with complaints of shortness of breath as detailed in HPI. Labs, imaging, EKG, and all reports were personally reviewed. She was hypoxic, tachycardic, and relatively hypotensive on arrival and technically meets sepsis criteria with a lactic acidosis as well. She has been afebrile with a normal WBC count however her history suggests pneumonia. She received a 2 L normal saline with improvement in her blood pressures however she has findings of congestive heart failure with with elevated proBNP and pleural effusions for which he may ultimately need to be diuresed. Continue ceftriaxone and doxycycline. Send sputum for culture. Check Legionella and pneumococcal antigens as well as mycoplasma IgM. Schedule bronchodilators as she does have some wheezing on exam. Mucinex and Cornet ordered to help mobilize secretions. She was started on a heparin drip in the ED for pulmonary emboli and she was also found to be in new onset atrial fibrillation. Lower extremity venous Doppler ultrasounds are pending to evaluate for DVT. Echocardiogram and TSH have been ordered. Troponin is slightly elevated, likely due to rapid atrial fibrillation and hypoxia, and will be trended. Cardiology has been consulted for their input. Her home medications will be reviewed and resumed as appropriate. Findings and treatment plan were discussed with the patient. Questions were solicited and answered to satisfaction. The patient's medical management will be taken over by the hospitalist team in a.m. Quality VTE Prophylaxis VTE prophylaxis: pharmacologic ordered (on heparin drip) Hospitalist MIPS Advance Care Plan I have confirmed that the patient's Advanced Care Plan is present, code status is documented, or surrogate decision maker is listed in patient medical record.: Yes Medication Reconciliation I have utilized all available resources to obtain, update and review the patients current medications (includes all prescriptions, OTC, herbals, cannabis, and nutritional supplements).: Yes
--- NOTE | 2024-04-30 14:00 | ECHO_ITS ---
Patient Info Name: Klaudia Larry Age: 84 years : 1940 Gender: Female Ht: 65 in Wt: 251 lbs BSA: 2.34 m2 HR: 126 bpm BP: 115 / 40 mmHg Heart Rhythm: Atrial Fibrillation Technical Quality: Poor Exam Date: 04/30/2024 2:44 PM Exam Location: Echo Lab Patient Status: Inpatient Admit Date: 04/30/2024 Staff Ordering Physician: Maricel Priest PA-C [place] Driver: Esau Falk RDCS Attending Provider: Aundrea Hill MD Referring Physician: Cem DAWSON; Exam Type: CA echo dop color flow w con Study Info Indications - Cardiomegaly, Afib Complete two-dimensional, color flow and Doppler transthoracic echocardiogram is performed with contrast to opacify the left ventricle and to improve the deliniation of the left ventricle endocardial borders. Contrast/Agitated Saline Contrast/Ag. Saline: Definity Amount: 2.00 ml Existing IV Access: Yes Reason for Poor Study: poor echocardiographic windows Summary 1. Technically suboptimal study due to poor sonographic images. 2. Definity contrast administered improved wall motion interpretation. 3. Left ventricular chamber dimension is normal. 4. Left ventricular systolic function is normal, estimated at 55-60%. 5. There is mild concentric increased left ventricular wall thickness. 6. The left ventricular diastolic function is abnormal. 7. E/e' 11 is mildly elevated. 8. Atrial fibrillation. 9. Right ventricular chamber dimension is moderately enlarged. 10. Left atrial chamber dimension is mildly enlarged. 11. Right atrial chamber dimension is mildly enlarged. 12. The mitral valve has mildly calcified annulus. 13. There is trace mitral valve regurgitation. 14. No pulmonary hypertension, estimated pulmonary arterial systolic pressure is 38 mmHg. Left Ventricle Technically suboptimal study due to poor sonographic images. E/e' 11 is mildly elevated. Definity contrast administered improved wall motion interpretation. Left ventricular chamber dimension is normal. Left ventricular systolic function is normal, estimated at 55-60%. There is mild concentric increased left ventricular wall thickness. The left ventricular diastolic function is abnormal. Atrial fibrillation. Right Ventricle Right ventricular systolic function is normal and with normal TAPSE 2.3 cm. Right ventricular chamber dimension is moderately enlarged. Left Atria Left atrial chamber dimension is mildly enlarged. Right Atria Right atrial chamber dimension is mildly enlarged. Aortic Valve The aortic valve is not well visualized. Cannot determine number of aortic valve leaflets. There is no aortic valve stenosis based on valve area and gradients. There is no aortic valve regurgitation. Pulmonic Valve There is no pulmonic regurgitation. Mitral Valve The mitral valve has mildly calcified annulus. There is no mitral valve stenosis. There is trace mitral valve regurgitation. Tricuspid Valve There is no tricuspid valve regurgitation. No pulmonary hypertension, estimated pulmonary arterial systolic pressure is 38 mmHg. Pericardium/Pleural There is no pericardial effusion. Inferior Vena Cava Normal inferior vena cava with >50% collapse upon inspiration consistent with normal right atrial pressure, 5 mmHg. Aorta The aortic root size at the sinus of Valsalva is normal. Left Ventricular Outflow Tract Name Value Normal LVOT 2D LVOT Diameter 2.05 cm LVOT Doppler LVOT Peak Gradient 2 mmHg LVOT Mean Gradient 1 mmHg LVOT VTI 11.69 cm LVOT VTI/AV VTI Ratio 0.70 LVOT Stroke Volume 38.61 ml LVOT CO 4.56 l/min LVOT CI 1.95 L/min/m2 Pulmonic Valve Name Value Normal RVOT Doppler RVOT Peak Gradient 2 mmHg PV Doppler PV Peak Gradient 3 mmHg Mitral Valve Name Value Normal MV Doppler MV Decel [place] 748.14 cm/s2 MV PHT 0 s MV Area (PHT) 5.71 cm2 4.00-5.00 MV Diastolic Function MV E Peak Velocity 99.44 cm/s MV A Peak Velocity 1.21 cm/s MV E/A 82.37 MV Decel Time 0 s MV Annular TDI MV E/e' (Septal) 8.68 <=8.00 MV E/e' (Lateral) 18.95 <=8.00 MV E/e' (Average) 13.81 Tricuspid Valve Name Value Normal TV Regurgitation Doppler TR Peak Velocity 287.32 cm/s TR Peak Gradient 33 mmHg Estimated PAP/RSVP RA Pressure 5 mmHg <=5 PA Systolic Pressure 38 mmHg <36 RV Systolic Pressure 38 mmHg <36 Aorta Name Value Normal Ascending Aorta Ao Root Diameter (MM) 2.85 cm Ao Root Diam Index (MM) 1.22 cm/m2 Aortic Valve Name Value Normal AV Doppler AV Peak Velocity 94.60 cm/s AV Peak Gradient 4 mmHg AV Mean Gradient 2 mmHg AV VTI 16.64 cm AV Area (Cont Eq VTI) 2.32 cm2 >=3.00 AV Area (Cont Eq Mark) 2.16 cm2 AV Regurgitation 2D LVOT Area 3.30 cm2 Ventricles Name Value Normal LV Dimensions 2D/MM IVS Diastolic Thickness (2D) 1.15 cm 0.60-1.00 LVID Diastole (2D) 3.50 cm 3.80-5.20 LVIW Diastolic Thickness (2D) 1.27 cm 0.60-0.90 LVID Systole (2D) 2.12 cm 2.20-3.50 LVOT Diameter 2.05 cm LV Mass (2D Cubed) 137.29 g 67.00-162.00 LV Mass Index (2D Cubed) 0.01 g/cm2 0.00-0.01 Relative Wall Thickness (2D) 0.73 LV Fractional Shortening/Ejection Fraction 2D/MM LV Fractional Shortening (2D) 39 % 27-45 LV EF (2D Teicholz) 71 % 54-74 Atria Name Value Normal LA Dimensions LA Dimension (MM) 3.44 cm 2.70-3.80 LA Volume (4C A-L) 64.10 ml LA Volume (BP A-L) 69.19 ml RA Dimensions RA Area (4C) 22.32 cm2 <=18.00 Report Signatures
--- NOTE | 2024-04-30 14:12 | ECG_ITS ---
Test Date: 2024-04-30 13:42:34 Measurements Intervals [place] Rate: 102 P: 0 GA: 0 QRS: -59 QRSD: 94 T: 62 QT: 344 QTc: 450 Interpretive Statements ATRIAL FIBRILLATION WITH RAPID VENTRICULAR RESPONSE LEFT AXIS DEVIATION LOW QRS VOLTAGE- DIFFUSE LEADS ANTEROSEPTAL INFARCT, AGE INDETERMINATE CONSIDER INFERIOR INFARCT, AGE INDETERMINATE BASELINE ARTIFACT- I, II, III, AVR, AVL, AVF, V1-V6 ABNORMAL ECG Compared to ECG 04/30/2024 10:20:05 HEART RATE HAS DECREASED Electronically Signed On 04-30-2024 16:47:21 PAVER INSTALLER by Ryland Mckeon D.O.
[2024-04-30 14:31] LABS: Lactic Acid 1.3 mmol/L (0.7-2.0)
[2024-04-30] MEDS: HEPARIN SOD/D5W 100 UNITS/ML 25,000 UNITS/250 ML BAG 14 UNITS IV CONT (14:42)
[2024-04-30 14:47] LABS: Troponin I 0.058 ng/mL (0.000-0.034)
[2024-04-30] MEDS: PERFLUTREN LIPID MICROSPHERES 1.5 ML VIAL DILUTED TO 10 ML TOTAL VOLUME IV PUSH (15:20)
--- NOTE | 2024-04-30 15:34 | IVDEFINITY ---
Prior to administration of IV Definity the patient was educated on the risks and benefits of the imaging enhancing agent including potential adverse side effects. The patient verbalized understanding. Allergies were verified. No exclusion criteria were identified and at least one of the following inclusion criteria were met: 1) physician request, 2) patient technically difficult to image (per the [place] [employer]chocardi[employer] guidelines of two or more segments not discernable within the apical view), or 3) questionable left ventricular function. ?
--- NOTE | 2024-04-30 15:42 | PC.NURSE ---
This RN received report from BOTTOMER OPERATOR.
--- NOTE | 2024-04-30 15:55 | ADMGEN ---
This patient, Klaudia Larry, was admitted to IMU Room 207-01 @ 1555. Patient/family oriented to hospital policies and general routines including ID bracelet, bed and alarms, visiting hours, pain management, procedures, bathroom and other care routines, personal items, smoking policy, room service/diet, and visiting hours. Information on how to activate the Rapid Response Team has been discussed. Patient/Family are encouraged to report perceived risks to care and to ask questions if they do not understand what they are told or what they should do.
--- NOTE | 2024-04-30 16:03 | ADMGEN ---
This patient, Klaudia Larry, was admitted to IMU Room 207-01. Patient/family oriented to hospital policies and general routines including ID bracelet, bed and alarms, visiting hours, pain management, procedures, bathroom and other care routines, personal items, smoking policy, room service/diet, and visiting hours. Information on how to activate the Rapid Response Team has been discussed. Patient/Family are encouraged to report perceived risks to care and to ask questions if they do not understand what they are told or what they should do.
--- NOTE | 2024-04-30 17:45 | PC.NURSE ---
Pt brought medications from home; two controlled medications are accounted for and locked in the safe, and the rest of her medications are in room 207 in the locked portion of the closet.
[2024-04-30 18:02] LABS: Basophils Percent Auto 0.4 % (0.2-1.2); Hematocrit 38.3 % (37.0-47.0); Hemoglobin 11.8 g/dL (12.0-15.0); Immature Granulocyte Absolute 0.03 K/mm3 (0.00-0.031); Immature Granulocyte Percent A 0.4 % (0-0.5); Lymphocytes Absolute Auto 1.64 K/mm3 (0.9-3.2); Lymphocytes Percent Auto 19.8 % (18.3-44.2); Mean Corpuscular HGB Conc 30.8 g/dl (32-36); Mean Corpuscular Hemoglobin 32.1 pg (26-34); Mean Corpuscular Volume 104.1 fl (80-100); Mean Platelet Volume 11.1 fl (7.4-10.4); Monocytes Absolute Auto 0.6 K/mm3 (0.1-0.6); Monocytes Percent Auto 7.3 % (2.6-8.5); Neutrophils Percent Auto 72.1 % (45.5-73.1); Platelet Count Result 166 k/mm3 (150-375); Red Blood Count 3.68 M/mm3 (4.2-5.4); Red Cell Distribution Width 14.1 % (11.5-14.5); White Blood Count 8.3 K/mm3 (4.5-10.0)
[2024-04-30 18:14] LABS: INR 1.1; Partial Thromboplastin Time 62.3 Seconds (22.3-36.8); Prothrombin Time 14.2 Seconds (11.1-14.7)
[2024-04-30] MEDS: HEPARIN SODIUM 5,000 UNITS/ML VIAL 3000 UNITS IV PUSH (18:19)
[2024-04-30] MEDS: PANTOPRAZOLE 40 MG TABLET PO (22:22)
[2024-04-30] MEDS: guaiFENesin 12 HR 600 MG TABCR 1200 MG PO (22:22)
[2024-05-01] VITALS (28 sets, daily range): BP systolic 106–151; BP diastolic 52–89; PULSE 84–123; RESP 18–33; TEMP 36.4–36.7; O2SAT 93–100
[2024-05-01 01:29] LABS: Partial Thromboplastin Time 181.3 Seconds (22.3-36.8)
[2024-05-01] MEDS: LEVALBUTEROL NEB 1.25 MG/3 ML INHALATION ×4 (03:06→21:50)
[2024-05-01] MEDS: IPRATROPIUM BR 0.02% INH SOLN 0.5 MG/2.5 ML VIAL INHALATION ×4 (03:07→21:50)
[2024-05-01 06:27] LABS: MRSA (PCR) NOT DETECTED (NOT DETECTE)
[2024-05-01] MEDS: LORATADINE 10 MG TABLET PO (08:22)
[2024-05-01] MEDS: PANTOPRAZOLE 40 MG TABLET PO ×2 (08:22→20:24)
[2024-05-01] MEDS: DOXYCYCLINE HYCLATE 100 MG TABLET PO ×2 (08:22→20:25)
[2024-05-01] MEDS: ATORVASTATIN 10 MG TABLET PO (08:22)
[2024-05-01] MEDS: guaiFENesin 12 HR 600 MG TABCR 1200 MG PO ×2 (08:22→20:24)
[2024-05-01 09:05] LABS: Basophils Absolute Auto 0.1 K/mm3 (0.0-0.1); Basophils Percent Auto 0.6 % (0.2-1.2); Eosinophils Absolute Auto 0.2 K/mm3 (0-0.3); Eosinophils Percent Auto 1.6 % (0-4.4); Hematocrit 41.8 % (37.0-47.0); Hemoglobin 12.9 g/dL (12.0-15.0); Immature Granulocyte Absolute 0.02 K/mm3 (0.00-0.031); Immature Granulocyte Percent A 0.2 % (0-0.5); Lymphocytes Absolute Auto 2.61 K/mm3 (0.9-3.2); Lymphocytes Percent Auto 26.9 % (18.3-44.2); Mean Corpuscular HGB Conc 30.9 g/dl (32-36); Mean Corpuscular Hemoglobin 32.3 pg (26-34); Mean Corpuscular Volume 104.5 fl (80-100); Mean Platelet Volume 11.5 fl (7.4-10.4); Monocytes Absolute Auto 0.6 K/mm3 (0.1-0.6); Monocytes Percent Auto 6.6 % (2.6-8.5); Neutrophils Absolute Auto 6.2 K/mm3 (1.3-6.7); Neutrophils Percent Auto 64.1 % (45.5-73.1); Platelet Count Result 156 k/mm3 (150-375); White Blood Count 9.7 K/mm3 (4.5-10.0)
[2024-05-01 09:40] LABS: Alanine Aminotransferase 31 U/L (6-35); Albumin Level 4.2 g/dL (3.5-5.1); Alkaline Phosphatase 78 U/L (38-126); Anion Gap 6 mmol/L (4-12); Aspartate Amino Transferase 114 U/L (14-36); Bilirubin,Total 0.8 mg/dL (0.2-1.3); Blood Urea Nitrogen 15 mg/dL (7-17); Calcium 9.9 mg/dL (8.4-10.2); Carbon Dioxide 27 mmol/L (22-30); Chloride 105 mmol/L (98-107); Estimated CRCL calculation 35 ml/min; Estimated Glomerular Filt Rate 33; Glucose 142 mg/dL (65-110); Magnesium 1.9 mg/dL (1.6-2.3); Potassium 4.3 mmol/L (3.4-5.0); Sodium 138 mmol/L (137-145)
[2024-05-01] MEDS: HEPARIN SOD/D5W 100 UNITS/ML 25,000 UNITS/250 ML BAG 14 UNITS IV CONT (09:52)
[2024-05-01 10:05] LABS: Partial Thromboplastin Time 164.4 Seconds (22.3-36.8)
[2024-05-01 11:01] LABS: Troponin I 0.043 ng/mL (0.000-0.034)
--- NOTE | 2024-05-01 11:24 | PM.CNCAR ---
Assessment and Plan Assessment and plan (1) Atrial fibrillation with RVR: Code(s): I48.91 - Unspecified atrial fibrillation Status: Acute Plan AFib with RVR likely related to underlying pulmonary embolism Acute pulmonary embolism Elevated troponin likely demand ischemia in setting of pulmonary embolism in AFib with RVR Possible sepsis CKD stage 3 Plan Shift from heparin to oral anticoagulation pulmonary embolism protocol which should be covering for both AFib a and pulmonary embolism Transthoracic echocardiogram Heart rate control using metoprolol 25 mg b.i.d. History of Present Illness History of Present Illness Consult date/time: 05/01/24 11:24 Reason For Visit: PE, Pneumonia Narrative: 84-year-old female patient presents to the hospital with 2 weeks history of fatigue with cough for 1 week and since yesterday patient has been feeling dizzy with tendency to fall. She has not lost her consciousness and has not had a fall. She has been complaining of shortness of breath that has been getting worse. There is history of chronic kidney disease morbid obesity. Workup in the ED revealed pulmonary embolism. In the ED she was noted to have AFib with RVR. She had no diagnosis of atrial fibrillation. Review of Systems Review of Systems: All systems reviewed & are unremarkable except as noted in HPI and below PMFSH Past Medical History Medical History (Updated 04/30/24 @ 21:28 by Maricel Priest PA-C) Allergic sinusitis Anxiety Body mass index (BMI) 40.0-44.9, adult Chronic kidney disease, stage 3a Chronic low back pain Diffuse idiopathic skeletal hyperostosis Esophageal web Gastro-esophageal reflux disease without esophagitis Generalized anxiety disorder History of tobacco use Keratolysis exfoliativa Morbid obesity due to excess calories Obesity hypoventilation syndrome Opioid dependence with current use Peripheral vascular disease, unspecified Pre-diabetes Schatzki's ring Spondylosis with myelopathy, lumbar region Surgical History Surgical History (Updated 04/30/24 @ 13:59 by Maricel Priest PA-C) History of colonoscopy with polypectomy History of esophageal dilatation History of meniscectomy of right knee History of vertebroplasty Family History Family History Mother Asthma Patient's mother is in good health Sibling Patient's sister is in good health Patient's brother is in good health Other Family history of arthritis Social History Social History (Updated 04/30/24 @ 21:24 by Maricel Priest PA-C) Social History: Surrogate medical decision maker: Mami Burns, daughter. Code status: Full code. Smoking packs per day: 2 Smoking cigarettes per day: 40.0 Years smoked: 10 Smoking pack-years: 20.00 Smoking status: Former smoker Second hand tobacco smoke exposure: No Alcohol intake: never Substance use: never Substance use type: does not use Do You Feel Safe in your Home?: Yes Lack of Transportation: No Lack of Food: Never True Current Housing: I Have Housing Concerned About Future Housing: No Difficulty Paying Gas/Electric Bills: No Difficulty Paying for Meds: No Currently Unemployed: YES Education: High School Diploma/GED Difficulty w/ Childcare or Family Care: No Living arrangements: with family Occupation/Education: retired Spiritual care concerns: No Agree to blood products: Yes Meds Home Medications and Allergies Home Medications Medication Instructions Recorded Confirmed Type loratadine 10 mg capsule 10 mg PO DAILY #100 caps 02/24/24 04/30/24 Rx tramadol 50 mg tablet 50 mg PO DAILY #30 tabs 03/22/24 04/30/24 Rx clonazepam 0.5 mg tablet 0.5 mg PO DAILY PRN panic 03/23/24 04/30/24 Rx attack(s) #30 tabs losartan 25 mg tablet 25 mg PO DAILY #90 tabs 04/13/24 04/30/24 Rx atorvastatin 10 mg tablet 10 mg PO DAILY 04/30/24 04/30/24 History omeprazole 40 mg capsule,delayed 40 mg PO DAILY 04/30/24 04/30/24 History release Allergies Allergy/AdvReac Type Severity Reaction Status Date / Time alendronate sodium Allergy Unknown gastritis Verified 04/30/24 10:35 pravastatin Allergy Unknown unknown Verified 04/30/24 10:35 No Known Allergies Allergy Verified 04/30/24 10:35 Vital Signs Vital Signs - 24 hr 04/30/24 12:23 04/30/24 12:20 04/30/24 12:20 Temperature Pulse Rate 126 H 131 H Respiratory Rate 32 H Blood Pressure Pulse Oximetry 98 98 Oxygen Delivery BiPAP BiPAP Oxygen Flow Rate Fraction of Inspired Oxygen 40 04/30/24 14:34 04/30/24 11:37 04/30/24 11:46 Temperature Pulse Rate 107 H 126 H 127 H Respiratory Rate 30 H 29 H 23 H Blood Pressure 102/80 118/77 Pulse Oximetry 96 91 93 Oxygen Delivery BiPAP Oxygen Flow Rate Fraction of Inspired Oxygen 04/30/24 11:47 04/30/24 12:15 04/30/24 12:16 Temperature Pulse Rate 122 H 122 H 123 H Respiratory Rate 18 24 H 21 H Blood Pressure 86/75 L Pulse Oximetry 94 96 95 Oxygen Delivery Oxygen Flow Rate Fraction of Inspired Oxygen 04/30/24 12:22 04/30/24 13:05 04/30/24 13:09 Temperature Pulse Rate 129 H 107 H 111 H Respiratory Rate 20 20 26 H Blood Pressure 118/93 H 119/106 H Pulse Oximetry 98 98 96 Oxygen Delivery Oxygen Flow Rate Fraction of Inspired Oxygen 04/30/24 13:24 04/30/24 13:33 04/30/24 14:52 Temperature Pulse Rate 110 H 103 H 111 H Respiratory Rate 24 H 20 20 Blood Pressure Pulse Oximetry 100 100 Oxygen Delivery Oxygen Flow Rate Fraction of Inspired Oxygen 04/30/24 15:01 04/30/24 15:16 04/30/24 16:10 Temperature Pulse Rate 100 103 H 108 H Respiratory Rate 22 H 18 25 H Blood Pressure 100/77 101/83 Pulse Oximetry 98 99 96 Oxygen Delivery BiPAP Oxygen Flow Rate Fraction of Inspired Oxygen 04/30/24 16:00 04/30/24 15:55 04/30/24 16:00 Temperature 36.1 C L Pulse Rate 95 110 H Respiratory Rate 30 H Blood Pressure 112/66 Pulse Oximetry 96 98 Oxygen Delivery BiPAP Oxygen Flow Rate Fraction of Inspired Oxygen 40 04/30/24 18:00 04/30/24 18:00 04/30/24 20:00 Temperature 36.6 C Pulse Rate 103 H 101 H Respiratory Rate 24 H Blood Pressure 115/55 L Pulse Oximetry 98 96 Oxygen Delivery Nasal Cannula Oxygen Flow Rate 3 Fraction of Inspired Oxygen 04/30/24 20:35 04/30/24 20:35 04/30/24 22:00 Temperature Pulse Rate 92 98 Respiratory Rate Blood Pressure Pulse Oximetry 97 Oxygen Delivery Nasal Cannula Oxygen Flow Rate 3 Fraction of Inspired Oxygen 04/30/24 21:25 05/01/24 00:00 05/01/24 00:00 Temperature 36.6 C Pulse Rate 93 94 Respiratory Rate 18 Blood Pressure 111/52 L Pulse Oximetry 96 96 Oxygen Delivery Nasal Cannula Oxygen Flow Rate 4 Fraction of Inspired Oxygen 05/01/24 00:20 05/01/24 03:13 05/01/24 03:09 Temperature Pulse Rate 99 Respiratory Rate 18 Blood Pressure Pulse Oximetry 95 97 Oxygen Delivery Nasal Cannula Nasal Cannula Oxygen Flow Rate 4 4 Fraction of Inspired Oxygen 05/01/24 02:00 05/01/24 04:00 05/01/24 04:00 Temperature Pulse Rate 98 100 Respiratory Rate Blood Pressure Pulse Oximetry 93 Oxygen Delivery Nasal Cannula Oxygen Flow Rate 4 Fraction of Inspired Oxygen 05/01/24 04:00 05/01/24 03:20 05/01/24 06:00 Temperature 36.4 C Pulse Rate 102 H 103 H 99 Respiratory Rate 20 18 Blood Pressure 127/61 Pulse Oximetry 93 Oxygen Delivery Oxygen Flow Rate Fraction of Inspired Oxygen 05/01/24 07:48 05/01/24 08:07 05/01/24 08:07 Temperature 36.7 C Pulse Rate 109 H 108 H Respiratory Rate 24 H 24 H Blood Pressure 151/89 H Pulse Oximetry 94 97 Oxygen Delivery Nasal Cannula Oxygen Flow Rate 3 Fraction of Inspired Oxygen 32 05/01/24 08:22 05/01/24 10:58 Temperature 36.4 C L Pulse Rate 114 H 103 H Respiratory Rate 24 H 24 H Blood Pressure 111/69 Pulse Oximetry 97 Oxygen Delivery Oxygen Flow Rate Fraction of Inspired Oxygen Exam Const: General: comfortable and no acute distress Other: Able to lie flat HENMT: Face/Nose/Sinus: Normal nares present and no epistaxis Mouth: Yes moist mucous membranes Eyes: Sclera: sclerae normal Pupils: Equal, round and reactive pupils present Neck: Neck: supple and no JVD Carotids: no bruits Resp: Auscultation: clear to auscultation bilaterally and lung sounds not diminished Other: No chest wall tenderness Cardio: Rate: regular rate Rhythm: regular rhythm Heart sounds: no gallops, no murmurs and no rubs GI: GI Palp: Yes Soft to palpation and No Tenderness to palpation present (GI) Auscultation: normal bowel sounds Skin: General skin exam: normal color, rashes and/or lesions noted and no erythema Other: Warm Neuro: Cranial nerves: Yes Equal, round and reactive pupils present Speech: normal speech Other: No obvious focal deficit or facial asymmetry Extrem: General: no edema Other: Normal capillary refills Intact distal pulses. Results Labs and Meds 05/01/24 08:57 05/01/24 08:57 Lab results: Cardiac Enzymes 04/30/24 04/30/24 05/01/24 Range/Units 14:14 17:55 08:57 AST 114 H (14-36) U/L Troponin I 0.058 H* D 0.090 H* D (0.000-0.034) ng/mL 05/01/24 Range/Units 10:31 AST (14-36) U/L Troponin I 0.043 H* (0.000-0.034) ng/mL Coagulation 04/30/24 04/30/24 05/01/24 Range/Units 10:24 17:55 00:41 PT 14.1 14.2 (11.1-14.7) Seconds APTT 26.0 62.3 H 181.3 H* (22.3-36.8) Seconds 05/01/24 Range/Units 08:57 PT (11.1-14.7) Seconds APTT 164.4 H* (22.3-36.8) Seconds CBC 04/30/24 05/01/24 Range/Units 17:55 08:57 WBC 8.3 9.7 (4.5-10.0) K/mm3 RBC 3.68 L 4.00 L (4.2-5.4) M/mm3 Hgb 11.8 L 12.9 (12.0-15.0) g/dL Hct 38.3 41.8 (37.0-47.0) % Plt Count 166 156 (150-375) k/mm3 Lymph # (Auto) 1.64 2.61 (0.9-3.2) K/mm3 [place] # (Auto) 0.6 0.6 (0.1-0.6) K/mm3 Eos # (Auto) 0.0 0.2 (0-0.3) K/mm3 Baso # (Auto) 0.0 0.1 (0.0-0.1) K/mm3 Comprehensive Metabolic Panel 05/01/24 Range/Units 08:57 Sodium 138 (137-145) mmol/L Potassium 4.3 (3.4-5.0) mmol/L Chloride 105 (98-107) mmol/L Carbon Dioxide 27 (22-30) mmol/L BUN 15 (7-17) mg/dL Creatinine 1.50 H (0.7-1.0) mg/dL Glucose 142 H (65-110) mg/dL Calcium 9.9 (8.4-10.2) mg/dL AST 114 H (14-36) U/L ALT 31 (6-35) U/L Alkaline Phosphatase 78 (38-126) U/L Total Protein 7.0 (6.3-8.2) g/dL Albumin 4.2 (3.5-5.1) g/dL Intake and Output 04/30/24 05/01/24 05/01/24 23:59 07:59 15:59 Intake Total 890.4 413.9 464.8 Output Total 200 Balance 890.4 213.9 464.8 Intake: IV 50.4 113.9 104.8 Heparin Sod/D5w 100 Units/ml 25 50.4 113.9 104.8 ,000 units In 250 ml @ 1,400 UNITS/HR 14 mls/hr IV CONT . [id number] [facility] Rx#:[id number] Oral 840 300 360 Output: Urine 200 Other: # Incontinent Voids 1 Patient Weight 05/01/24 23:59 Weight 132.6 kg
[2024-05-01 12:14] LABS: Thyroid Stimulating Hormone Reflex 0.765 uIU/mL (0.465-4.68)
[2024-05-01] MEDS: HEPARIN SOD/D5W 100 UNITS/ML 25,000 UNITS/250 ML BAG 12 UNITS IV CONT (13:15)
--- NOTE | 2024-05-01 17:11 | P.PNIM_ITS ---
Progress Note: A&P Assessment and Plan (1) Acute respiratory failure with hypoxia: Code(s): J96.01 - Acute respiratory failure with hypoxia Status: Acute (2) Pneumonia: Qualifiers: Laterality: bilateral Lung location: lower lobe of lung Pneumonia type: due to unspecified organism Qualified Code(s): J18.9 - Pneumonia, unspecified organism Code(s): J18.9 - Pneumonia, unspecified organism Status: Acute (3) Suspected congestive heart failure: Code(s): R09.89 - Other specified symptoms and signs involving the circulatory and respiratory systems Status: Acute (4) Pulmonary emboli: Code(s): I26.99 - Other pulmonary embolism without acute cor pulmonale Status: Acute (5) Atrial fibrillation with rapid ventricular response: Code(s): I48.91 - Unspecified atrial fibrillation Status: Acute (6) Elevated troponin: Code(s): R79.89 - Other specified abnormal findings of blood chemistry Status: Acute Plan Pulm embolism CTA chest reviewed Continue Heparin infusion switch to PO AC tomorrow monitor AFib RVR Contineu above anticoagulation ECHO pending contineu Metoprolol Cardiology following The patient presented to the emergency department with complaints of shortness of breath as detailed in HPI. Labs, imaging, EKG, and all reports were personally reviewed. She was hypoxic, tachycardic, and relatively hypotensive on arrival and technically meets sepsis criteria with a lactic acidosis as well. She has been afebrile with a normal WBC count however her history suggests pneumonia. She received a 2 L normal saline with improvement in her blood pressures however she has findings of congestive heart failure with with elizabeth vated proBNP and pleural effusions for which he may ultimately need to be diuresed. Continue ceftriaxone and doxycycline. Send sputum for culture. Check Legionella and pneumococcal antigens as well as mycoplasma IgM. Schedule bronchodilators as she does have some wheezing on exam. Mucinex and Cornet ordered to help mobilize secretions. She was started on a heparin drip in the ED for pulmonary emboli and she was also found to be in new onset atrial fibrillation. Lower extremity venous Doppler ultrasounds are pending to evaluate for DVT. Echocardiogram and TSH have been ordered. Troponin is slightly elevated, likely due to rapid atrial fibrillation and hypoxia, and will be trended. Cardiology has been consulted for their input. Her home medications will be reviewed and resumed as appropriate. Findings and treatment plan were discussed with the patient. Questions were solicited and answered to satisfaction. The patient's medical management will be taken over by the hospitalist team in a.m. Subjective Date/time seen: 05/01/24 17:11 Interval history: Comfortable at bedside Review of Systems Review of Systems: 12 systems were reviewed and are negativ e except for as per HPI. Exam Narrative: General: Well-developed, nontoxic-appearing elderly female sitting up in bed on BiPAP. Weight: 132 kg. BMI: 48.4. HEENT: PERRL, EOMI. Sclera anicteric. Oral mucosa appears moist through the BiPAP mask. Neck: Supple. Exam limited due to neck circumference. No obvious jugular venous distention. Respiratory: On BiPAP and able to speak freely through the mask. Lung sounds are diminished at the bases with scattered crackles and occasional rhonchi and wheezing which improved with coughing. Cardiovascular: Irregularly irregular rate and rhythm. Gastrointestinal: Abdomen is soft, obese, nontender, and nondistended with positive bowel sounds. Skin: Warm and dry. Heavily callused feet. Extremities: No cyanosis or clubbing. Mild edema of the bilateral lower extremities. No palpable knots or cords. Peripheral pulses intact. Neurological: Alert. Cranial nerves 2-12 are grossly intact. No gross focal deficits to casual conversation. Psychiatric: Cooperative with appropriate mood. A bit anxious. Objective Data Vital Signs Vital Signs: Vital Signs - 24 hr 04/30/24 18:00 04/30/24 18:00 04/30/24 20:00 Temperature 97.8 F Pulse Rate 103 H 101 H Respiratory Rate 24 H Blood Pressure 115/55 L Pulse Oximetry 98 96 Oxygen Delivery Nasal Cannula Oxygen Flow Rate 3 Fraction of Inspired Oxygen 04/30/24 20:35 04/30/24 20:35 04/30/24 22:00 Temperature Pulse Rate 92 98 Respiratory Rate Blood Pressure Pulse Oximetry 97 Oxygen Delivery Nasal Cannula Oxygen Flow Rate 3 Fraction of Inspired Oxygen 04/30/24 21:25 05/01/24 00:00 05/01/24 00:00 Temperature 98 F Pulse Rate 93 94 Respiratory Rate 18 Blood Pressure 111/52 L Pulse Oximetry 96 96 Oxygen Delivery Nasal Cannula Oxygen Flow Rate 4 Fraction of Inspired Oxygen 05/01/24 00:20 05/01/24 03:13 05/01/24 03:09 Temperature Pulse Rate 99 Respiratory Rate 18 Blood Pressure Pulse Oximetry 95 97 Oxygen Delivery Nasal Cannula Nasal Cannula Oxygen Flow Rate 4 4 Fraction of Inspired Oxygen 05/01/24 02:00 05/01/24 04:00 05/01/24 04:00 Temperature Pulse Rate 98 100 Respiratory Rate Blood Pressure Pulse Oximetry 93 Oxygen Delivery Nasal Cannula Oxygen Flow Rate 4 Fraction of Inspired Oxygen 05/01/24 04:00 05/01/24 03:20 05/01/24 06:00 Temperature 97.6 F Pulse Rate 102 H 103 H 99 Respiratory Rate 20 18 Blood Pressure 127/61 Pulse Oximetry 93 Oxygen Delivery Oxygen Flow Rate Fraction of Inspired Oxygen 05/01/24 07:48 05/01/24 08:07 05/01/24 08:07 Temperature 98.0 F Pulse Rate 109 H 108 H Respiratory Rate 24 H 24 H Blood Pressure 151/89 H Pulse Oximetry 94 97 Oxygen Delivery Nasal Cannula Oxygen Flow Rate 3 Fraction of Inspired Oxygen 32 05/01/24 08:22 05/01/24 10:58 05/01/24 08:00 Temperature 97.5 F L Pulse Rate 114 H 103 H Respiratory Rate 24 H 24 H Blood Pressure 111/69 Pulse Oximetry 97 97 Oxygen Delivery Nasal Cannula Oxygen Flow Rate 4 Fraction of Inspired Oxygen 05/01/24 08:00 05/01/24 10:00 05/01/24 12:00 Temperature Pulse Rate 111 H 108 H Respiratory Rate Blood Pressure Pulse Oximetry 95 Oxygen Delivery Nasal Cannula Oxygen Flow Rate 3 Fraction of Inspired Oxygen 05/01/24 12:00 05/01/24 13:45 05/01/24 13:45 Temperature Pulse Rate 105 H 114 H Respiratory Rate 24 H Blood Pressure Pulse Oximetry 97 Oxygen Delivery Nasal Cannula Oxygen Flow Rate 3 Fraction of Inspired Oxygen 32 05/01/24 14:04 05/01/24 14:00 05/01/24 15:58 Temperature 97.8 F Pulse Rate 108 H 113 H 123 H Respiratory Rate 20 24 H Blood Pressure 106/77 Pulse Oximetry 94 Oxygen Delivery Oxygen Flow Rate Fraction of Inspired Oxygen Intake/Output Intake/Output: Intake & Output 04/28/24 04/29/24 04/30/24 05/01/24 23:59 23:59 23:59 23:59 Intake Total 2940.4 1358.7 Output Total 200 Balance 2940.4 1158.7 Meds/Results Medications: Active Medications Generic Name Dose Route Start Last Admin Trade Name Jonathanq PRN Reason Stop Dose Admin Acetaminophen 650 mg 04/30/24 13:36 Acetaminophen 325 Mg Tablet PO Q4H PRN Mild Pain (1-3) or Fever Atorvastatin Calcium 10 mg 05/01/24 09:00 05/01/24 08:22 Atorvastatin 10 Mg Tablet PO 10 mg DAILY BEVERLY Administration Clonazepam 0.5 mg 04/30/24 21:10 Clonazepam (*Crx) 0.5 Mg Tablet PO DAILY PRN panic attack(s) Doxycycline Hyclate 100 mg 04/30/24 21:45 05/01/24 08:22 Doxycycline Hyclate 100 Mg Tablet PO 100 mg Q12HR BVEERLY Administration Guaifenesin 1,200 mg 04/30/24 21:45 05/01/24 08:22 Guaifenesin 12 Hr 600 Mg Tabcr PO 1,200 mg Q12HR BEVERLY Administration Heparin Sodium (Porcine) 6,500 units 04/30/24 13:46 Heparin Sodium 5,000 Units/Ml Vial IV PUSH PRN PRN aPTT less than 55 seconds Heparin Sodium (Porcine) 3,000 units 04/30/24 13:46 04/30/24 18:19 Heparin Sodium 5,000 Units/Ml Vial IV PUSH 3,000 units PRN PRN Administration aPTT 55 - 70 seconds Heparin Sodium/Dextrose 25,000 units in 250 mls @ 12 mls/hr 04/30/24 13:50 05/01/24 13:15 Heparin Sodium/D5w 100 Units/Ml IV CONT 1,200 units/hr .[id number] BEVERLY 12 mls/hr Administration Protocol 1,200 UNITS/HR Ceftriaxone Sodium 1 gm in 50 mls @ 100 mls/hr 05/01/24 12:00 05/01/24 13:14 Rocephin 1 Gm/Ns 50 Ml IVPB 100 mls/hr Q24H BEVERLY Administration Ipratropium [place] 0.5 mg 05/01/24 02:00 05/01/24 13:43 Ipratropium Br 0.02% Inh Soln 0.5 Mg/2.5 Ml Vial INHALATION 0.5 mg Q6HRT BEVERLY Administration Levalbuterol HCl 1.25 mg 05/01/24 02:00 05/01/24 13:43 Levalbuterol Neb 1.25 Mg/3 Ml INHALATION 1.25 mg Q6HRT BEVERLY Administration Loratadine 10 mg 05/01/24 09:00 05/01/24 08:22 Loratadine 10 Mg Tablet PO 10 mg DAILY BEVERLY Administration Metoprolol Tartrate 25 mg 05/01/24 21:00 Metoprolol Tartrate 25 Mg Tablet PO Q12HR BEVERLY Pantoprazole Sodium 40 mg 04/30/24 21:15 05/01/24 08:22 Pantoprazole 40 Mg Tablet PO 40 mg Q12HR BEVERLY Administration Perflutren Lipid Microsphere 0 ml 05/01/24 11:53 Perflutren Lipid Microspheres 1.5 Ml Vial Diluted To 10 Ml Total Volume IV PUSH 05/04/24 11:54 ONCE PRN adequate visualization Protocol Tramadol HCl 50 mg 04/30/24 21:11 Tramadol Hcl (*Crx) 50 Mg Tablet PO DAILY PRN pain 4-10 Radiology Results: ITS Impressions Chest/Abdomen/Pelvis CTA 04/30/24 11:59 IMPRESSION: Mild pulmonary embolism involving right upper and middle lobes Left thyroid enlargement Cardiomegaly Moderate bilateral pleural effusions Bilateral lower lobe infiltrates and atelectasis Status post cholecystectomy Bilateral renal cysts 3 mm nonobstructing right renal calculus Status post vertebroplasty at burst fracture of T12 Chest X-Ray 04/30/24 12:29 IMPRESSION: Moderate pleural effusions, better demonstrated on CT examination today Bilateral lower lobe infiltrate and/or atelectasis Cardiomegaly, aortic atherosclerosis Status post vertebroplasty at T12 fracture Labs Labs: Laboratory Results - last 24 hr 04/30/24 05/01/24 05/01/24 17:55 00:41 04:38 WBC 8.3 RBC 3.68 L Hgb 11.8 L Hct 38.3 MCV 104.1 H MCH 32.1 MCHC 30.8 L RDW 14.1 Plt Count 166 MPV 11.1 H Immature Gran % (Auto) 0.4 Neut % (Auto) 72.1 Lymph % (Auto) 19.8 [place] % (Auto) 7.3 Eos % (Auto) 0.0 Baso % (Auto) 0.4 Lymph # (Auto) 1.64 [place] # (Auto) 0.6 Eos # (Auto) 0.0 Baso # (Auto) 0.0 Abs Immat Gran (auto) 0.03 Absolute Neuts (auto) 6.0 Absolute Nucleated RBC 0.000 Nucleated RBC % 0.0 PT 14.2 INR 1.1 APTT 62.3 H 181.3 H* Sodium Potassium Chloride Carbon Dioxide Anion Gap BUN Creatinine Estim Creat Clear Calc Estimated GFR Glucose Calcium Magnesium Total Bilirubin AST ALT Alkaline Phosphatase Troponin I 0.090 H* D Total Protein Albumin TSH (Reflex) Nasal MRSA (PCR) Not detected 05/01/24 05/01/24 08:57 10:31 WBC 9.7 RBC 4.00 L Hgb 12.9 Hct 41.8 MCV 104.5 H MCH 32.3 MCHC 30.9 L RDW 14.0 Plt Count 156 MPV 11.5 H Immature Gran % (Auto) 0.2 Neut % (Auto) 64.1 Lymph % (Auto) 26.9 [place] % (Auto) 6.6 Eos % (Auto) 1.6 Baso % (Auto) 0.6 Lymph # (Auto) 2.61 [place] # (Auto) 0.6 Eos # (Auto) 0.2 Baso # (Auto) 0.1 Abs Immat Gran (auto) 0.02 Absolute Neuts (auto) 6.2 Absolute Nucleated RBC 0.000 Nucleated RBC % 0.0 PT INR APTT 164.4 H* Sodium 138 Potassium 4.3 Chloride 105 Carbon Dioxide 27 Anion Gap 6 BUN 15 Creatinine 1.50 H Estim Creat Clear Calc 35 Estimated GFR 33 L Glucose 142 H Calcium 9.9 Magnesium 1.9 Total Bilirubin 0.8 AST 114 H ALT 31 Alkaline Phosphatase 78 Troponin I 0.043 H* Total Protein 7.0 Albumin 4.2 TSH (Reflex) 0.765 Nasal MRSA (PCR) Quality VTE Prophylaxis VTE prophylaxis: pharmacologic ordered (on heparin drip)
[2024-05-01 18:22] LABS: Partial Thromboplastin Time 82.9 Seconds (22.3-36.8)
[2024-05-01] MEDS: METOPROLOL TARTRATE 25 MG TABLET PO (20:25)
[2024-05-02] VITALS (21 sets, daily range): BP systolic 114–135; BP diastolic 56–97; PULSE 88–121; RESP 16–28; TEMP 36.5–36.8; O2SAT 93–100
[2024-05-02 01:10] LABS: Partial Thromboplastin Time 103.6 Seconds (22.3-36.8)
[2024-05-02] MEDS: LEVALBUTEROL NEB 1.25 MG/3 ML INHALATION ×4 (03:33→20:19)
[2024-05-02] MEDS: IPRATROPIUM BR 0.02% INH SOLN 0.5 MG/2.5 ML VIAL INHALATION ×4 (03:33→20:19)
[2024-05-02] MEDS: HEPARIN SOD/D5W 100 UNITS/ML 25,000 UNITS/250 ML BAG 12 UNITS IV CONT (04:30)
[2024-05-02 05:19] LABS: Basophils Absolute Auto 0.1 K/mm3 (0.0-0.1); Basophils Percent Auto 0.9 % (0.2-1.2); Eosinophils Absolute Auto 0.3 K/mm3 (0-0.3); Eosinophils Percent Auto 3.1 % (0-4.4); Hemoglobin 11.9 g/dL (12.0-15.0); Immature Granulocyte Absolute 0.02 K/mm3 (0.00-0.031); Immature Granulocyte Percent A 0.2 % (0-0.5); Lymphocytes Absolute Auto 1.71 K/mm3 (0.9-3.2); Lymphocytes Percent Auto 21.2 % (18.3-44.2); Mean Corpuscular HGB Conc 30.5 g/dl (32-36); Mean Corpuscular Hemoglobin 31.3 pg (26-34); Mean Corpuscular Volume 102.6 fl (80-100); Monocytes Absolute Auto 0.7 K/mm3 (0.1-0.6); Monocytes Percent Auto 9.2 % (2.6-8.5); Neutrophils Absolute Auto 5.3 K/mm3 (1.3-6.7); Neutrophils Percent Auto 65.4 % (45.5-73.1); Platelet Count Result 147 k/mm3 (150-375); Red Cell Distribution Width 13.6 % (11.5-14.5); White Blood Count 8.1 K/mm3 (4.5-10.0)
[2024-05-02 05:33] LABS: Alanine Aminotransferase 25 U/L (6-35); Albumin Level 3.6 g/dL (3.5-5.1); Alkaline Phosphatase 63 U/L (38-126); Anion Gap 4 mmol/L (4-12); Aspartate Amino Transferase 71 U/L (14-36); Bilirubin,Total 0.6 mg/dL (0.2-1.3); Blood Urea Nitrogen 13 mg/dL (7-17); Calcium 9.7 mg/dL (8.4-10.2); Carbon Dioxide 28 mmol/L (22-30); Chloride 105 mmol/L (98-107); Estimated CRCL calculation 40 ml/min; Estimated Glomerular Filt Rate 39; Glucose 102 mg/dL (65-110); Magnesium 1.9 mg/dL (1.6-2.3); Potassium 4.1 mmol/L (3.4-5.0); Sodium 137 mmol/L (137-145)
[2024-05-02] MEDS: ATORVASTATIN 10 MG TABLET PO (08:43)
[2024-05-02] MEDS: APIXABAN 5 MG TABLET 10 MG PO ×2 (08:43→20:26)
[2024-05-02] MEDS: METOPROLOL TARTRATE 25 MG TABLET PO (08:44)
[2024-05-02] MEDS: PANTOPRAZOLE 40 MG TABLET PO ×2 (08:44→20:27)
[2024-05-02] MEDS: LORATADINE 10 MG TABLET PO (08:44)
[2024-05-02] MEDS: DOXYCYCLINE HYCLATE 100 MG TABLET PO ×2 (08:44→20:27)
[2024-05-02] MEDS: guaiFENesin 12 HR 600 MG TABCR 1200 MG PO ×2 (08:44→20:27)
[2024-05-02] MEDS: FUROSEMIDE INJ 40 MG/4 ML VIAL 20 MG IV PUSH ×2 (08:45→17:15)
--- NOTE | 2024-05-02 09:20 | PM.PNCARD ---
Progress Note: A&P Assessment and Plan (1) Atrial fibrillation with RVR: Code(s): I48.91 - Unspecified atrial fibrillation Status: Acute Plan AFib with RVR likely related to underlying pulmonary embolism Acute pulmonary embolism Elevated troponin likely demand ischemia in setting of pulmonary embolism in AFib with RVR Possible sepsis CKD stage 3 Plan Continue DOAC Transthoracic echocardiogram showed normal LV function with no significant valve pathology. Heart rate control using metoprolol, will increase to 50mg b.i.d. for better rate control. OK for discharge from a cardiac perspective. Subjective Date/time seen: 05/02/24 09:20 Interval history: Cardiology follow up for atrial fibrillation Date of service : Heart rate generally above goal, however she is asymptomatic. Does not have any specific complaints or concerns this morning. Review of Systems Review of Systems: All systems reviewed & are unremarkable except as noted in HPI and below Exam Const: General: comfortable and no acute distress Other: Able to lie flat HENMT: Face/Nose/Sinus: Normal nares present and no epistaxis Mouth: Yes moist mucous membranes Eyes: Sclera: sclerae normal Pupils: Equal, round and reactive pupils present Neck: Neck: supple and no JVD Carotids: no bruits Resp: Auscultation: clear to auscultation bilaterally and lung sounds not diminished Other: No chest wall tenderness Cardio: Rate: tachycardic Rhythm: abnormal rhythm irregularly irregular Heart sounds: no gallops, no murmurs and no rubs GI: Auscultation: normal bowel sounds Skin: General skin exam: normal color, rashes and/or lesions noted and no erythema Other: Warm Neuro: Cranial nerves: Yes Equal, round and reactive pupils present Speech: normal speech Other: No obvious focal deficit or facial asymmetry Extrem: General: no edema Other: Normal capillary refills Intact distal pulses. Objective Data Vital Signs Vital Signs: Vital Signs - 24 hr 05/01/24 10:58 05/01/24 10:00 05/01/24 12:00 Temperature 36.4 C L Pulse Rate 103 H 108 H Respiratory Rate 24 H Blood Pressure 111/69 Pulse Oximetry 97 95 Oxygen Delivery Nasal Cannula Oxygen Flow Rate 3 Fraction of Inspired Oxygen 05/01/24 12:00 05/01/24 13:45 05/01/24 13:45 Temperature Pulse Rate 105 H 114 H Respiratory Rate 24 H Blood Pressure Pulse Oximetry 97 Oxygen Delivery Nasal Cannula Oxygen Flow Rate 3 Fraction of Inspired Oxygen 32 05/01/24 14:04 05/01/24 14:00 05/01/24 15:58 Temperature 36.6 C Pulse Rate 108 H 113 H 123 H Respiratory Rate 20 24 H Blood Pressure 106/77 Pulse Oximetry 94 Oxygen Delivery Oxygen Flow Rate Fraction of Inspired Oxygen 05/01/24 16:00 05/01/24 16:00 05/01/24 18:00 Temperature Pulse Rate 121 H 122 H Respiratory Rate Blood Pressure Pulse Oximetry 97 Oxygen Delivery Nasal Cannula Oxygen Flow Rate 3 Fraction of Inspired Oxygen 05/01/24 20:05 05/01/24 20:25 05/01/24 20:20 Temperature 36.6 C Pulse Rate 112 H 109 H Respiratory Rate 22 H Blood Pressure 112/79 Pulse Oximetry 100 98 Oxygen Delivery Nasal Cannula Oxygen Flow Rate 3 Fraction of Inspired Oxygen 05/01/24 20:00 05/01/24 22:00 05/01/24 21:50 Temperature Pulse Rate 114 H 102 H 84 Respiratory Rate 33 H Blood Pressure Pulse Oximetry 100 Oxygen Delivery BiPAP Oxygen Flow Rate Fraction of Inspired Oxygen 05/01/24 21:50 05/01/24 22:04 05/02/24 00:00 Temperature Pulse Rate 84 97 Respiratory Rate 33 H 30 H Blood Pressure Pulse Oximetry 100 Oxygen Delivery Nasal Cannula Oxygen Flow Rate 2 Fraction of Inspired Oxygen 05/02/24 00:00 05/02/24 00:00 05/02/24 02:00 Temperature 36.7 C Pulse Rate 119 H 95 100 Respiratory Rate 16 Blood Pressure 135/97 H Pulse Oximetry 100 Oxygen Delivery Oxygen Flow Rate Fraction of Inspired Oxygen 05/02/24 03:54 05/02/24 04:00 05/02/24 04:00 Temperature Pulse Rate 92 110 H Respiratory Rate 24 H 23 H Blood Pressure Pulse Oximetry 99 Oxygen Delivery Nasal Cannula Oxygen Flow Rate 2 Fraction of Inspired Oxygen 05/02/24 04:00 05/02/24 06:00 05/02/24 04:00 Temperature 36.5 C Pulse Rate 100 100 104 H Respiratory Rate 18 Blood Pressure 132/91 H Pulse Oximetry 97 Oxygen Delivery Oxygen Flow Rate Fraction of Inspired Oxygen 05/02/24 07:26 05/02/24 08:08 05/02/24 08:40 Temperature 36.6 C Pulse Rate 114 H 111 H Respiratory Rate 18 20 Blood Pressure 122/88 Pulse Oximetry 93 96 Oxygen Delivery Nasal Cannula Nasal Cannula Oxygen Flow Rate 3 3 Fraction of Inspired Oxygen 05/02/24 08:40 05/02/24 08:44 Temperature Pulse Rate 111 H 117 H Respiratory Rate 20 Blood Pressure Pulse Oximetry Oxygen Delivery Oxygen Flow Rate Fraction of Inspired Oxygen Intake/Output Intake/Output: Intake & Output 04/29/24 04/30/24 05/01/24 05/02/24 23:59 23:59 23:59 23:59 Intake Total 2940.4 2205.1 676.6 Output Total 700 650 Balance 2940.4 1505.1 26.6 Meds/Results Medications: Active Medications Generic Name Dose Route Start Last Admin Trade Name Freq PRN Reason Stop Dose Admin Acetaminophen 650 mg 04/30/24 13:36 Acetaminophen 325 Mg Tablet PO Q4H PRN Mild Pain (1-3) or Fever Apixaban 10 mg 05/02/24 09:00 05/02/24 08:43 Apixaban 5 Mg Tablet PO 10 mg Q12HR B[facility]LY Administration Atorvastatin Calcium 10 mg 05/01/24 09:00 05/02/24 08:43 Atorvastatin 10 Mg Tablet PO 10 mg DAILY B[facility] Administration Clonazepam 0.5 mg 04/30/24 21:10 Clonazepam (*Crx) 0.5 Mg Tablet PO DAILY PRN panic attack(s) Doxycycline Hyclate 100 mg 04/30/24 21:45 05/02/24 08:44 Doxycycline Hyclate 100 Mg Tablet PO 100 mg Q12HR BEVERLY Administration Furosemide 20 mg 05/02/24 09:00 05/02/24 08:45 Furosemide Inj 40 Mg/4 Ml Vial IV PUSH 20 mg BID BEVERLY Administration Guaifenesin 1,200 mg 04/30/24 21:45 05/02/24 08:44 Guaifenesin 12 Hr 600 Mg Tabcr PO 1,200 mg Q12HR B[facility]LY Administration Heparin Sodium (Porcine) 6,500 units 04/30/24 13:46 Heparin Sodium 5,000 Units/Ml Vial IV PUSH PRN PRN aPTT less than 55 seconds Heparin Sodium (Porcine) 3,000 units 04/30/24 13:46 04/30/24 18:19 Heparin Sodium 5,000 Units/Ml Vial IV PUSH 3,000 units PRN PRN Administration aPTT 55 - 70 seconds Heparin Sodium/Dextrose 25,000 units in 250 mls @ 12 mls/hr 04/30/24 13:50 05/02/24 04:30 Heparin Sodium/D5w 100 Units/Ml IV CONT 1,200 units/hr .[id number] BEVERLY 12 mls/hr Administration Protocol 1,200 UNITS/HR Ceftriaxone Sodium 1 gm in 50 mls @ 100 mls/hr 05/01/24 12:00 05/01/24 13:14 Rocephin 1 Gm/Ns 50 Ml IVPB 100 mls/hr Q24H B[facility]LY Administration Ipratropium [place] 0.5 mg 05/01/24 02:00 05/02/24 08:38 Ipratropium Br 0.02% Inh Soln 0.5 Mg/2.5 Ml Vial INHALATION 0.5 mg Q6HRT B[facility]LY Administration Levalbuterol HCl 1.25 mg 05/01/24 02:00 05/02/24 08:38 Levalbuterol Neb 1.25 Mg/3 Ml INHALATION 1.25 mg Q6HRT BEVERLY Administration Loratadine 10 mg 05/01/24 09:00 05/02/24 08:44 Loratadine 10 Mg Tablet PO 10 mg DAILY B[facility] Administration Metoprolol Tartrate 25 mg 05/01/24 21:00 05/02/24 08:44 Metoprolol Tartrate 25 Mg Tablet PO 25 mg Q12HR BEVERLY Administration Pantoprazole Sodium 40 mg 04/30/24 21:15 05/02/24 08:44 Pantoprazole 40 Mg Tablet PO 40 mg Q12HR BEVERLY Administration Perflutren Lipid Microsphere 0 ml 05/01/24 11:53 Perflutren Lipid Microspheres 1.5 Ml Vial Diluted To 10 Ml Total Volume IV PUSH 05/04/24 11:54 ONCE PRN adequate visualization Protocol Polyethylene Glycol 17 gm 05/02/24 09:02 Polyethylene Glycol 3350 17 Gm Powd.Pack PO QAM BEVERLY Tramadol HCl 50 mg 04/30/24 21:11 Tramadol Hcl (*Crx) 50 Mg Tablet PO DAILY PRN pain 4-10 Radiology Results: ITS Impressions Chest/Abdomen/Pelvis CTA 04/30/24 11:59 IMPRESSION: Mild pulmonary embolism involving right upper and middle lobes Left thyroid enlargement Cardiomegaly Moderate bilateral pleural effusions Bilateral lower lobe infiltrates and atelectasis Status post cholecystectomy Bilateral renal cysts 3 mm nonobstructing right renal calculus Status post vertebroplasty at burst fracture of T12 Chest X-Ray 04/30/24 12:29 IMPRESSION: Moderate pleural effusions, better demonstrated on CT examination today Bilateral lower lobe infiltrate and/or atelectasis Cardiomegaly, aortic atherosclerosis Status post vertebroplasty at T12 fracture Labs Labs: Laboratory Results - last 24 hr 05/01/24 05/01/24 05/01/24 08:57 10:31 17:57 WBC RBC Hgb Hct MCV MCH MCHC RDW Plt Count MPV Immature Gran % (Auto) Neut % (Auto) Lymph % (Auto) [place] % (Auto) Eos % (Auto) Baso % (Auto) Lymph # (Auto) [place] # (Auto) Eos # (Auto) Baso # (Auto) Abs Immat Gran (auto) Absolute Neuts (auto) Absolute Nucleated RBC Nucleated RBC % APTT 164.4 H* 82.9 H Sodium 138 Potassium 4.3 Chloride 105 Carbon Dioxide 27 Anion Gap 6 BUN 15 Creatinine 1.50 H Estim Creat Clear Calc 35 Estimated GFR 33 L Glucose 142 H Lactic Acid Calcium 9.9 Magnesium 1.9 Total Bilirubin 0.8 AST 114 H ALT 31 Alkaline Phosphatase 78 Troponin I 0.043 H* Total Protein 7.0 Albumin 4.2 TSH (Reflex) 0.765 05/02/24 05/02/24 00:46 04:02 WBC 8.1 RBC 3.80 L Hgb 11.9 L Hct 39.0 MCV 102.6 H MCH 31.3 MCHC 30.5 L RDW 13.6 Plt Count 147 L MPV 12.0 H Immature Gran % (Auto) 0.2 Neut % (Auto) 65.4 Lymph % (Auto) 21.2 [place] % (Auto) 9.2 H Eos % (Auto) 3.1 Baso % (Auto) 0.9 Lymph # (Auto) 1.71 [place] # (Auto) 0.7 H Eos # (Auto) 0.3 Baso # (Auto) 0.1 Abs Immat Gran (auto) 0.02 Absolute Neuts (auto) 5.3 Absolute Nucleated RBC 0.000 Nucleated RBC % 0.0 APTT 103.6 H Sodium 137 Potassium 4.1 Chloride 105 Carbon Dioxide 28 Anion Gap 4 BUN 13 Creatinine 1.30 H Estim Creat Clear Calc 40 Estimated GFR 39 L Glucose 102 Lactic Acid 1.0 Calcium 9.7 Magnesium 1.9 Total Bilirubin 0.6 AST 71 H ALT 25 Alkaline Phosphatase 63 Troponin I Total Protein 7.0 Albumin 3.6 TSH (Reflex) Quality VTE Prophylaxis VTE prophylaxis: pharmacologic ordered (on heparin drip)
[2024-05-02] MEDS: BISACODYL 10 MG SUPPOSITORY RECTAL (10:44)
[2024-05-02] MEDS: polyethylene glycoL 3350 17 GM POWD.PACK PO (10:45)
--- NOTE | 2024-05-02 14:49 | P.PNIM_ITS ---
Progress Note: A&P Assessment and Plan (1) Acute respiratory failure with hypoxia: Code(s): J96.01 - Acute respiratory failure with hypoxia Status: Acute (2) Pneumonia: Qualifiers: Laterality: bilateral Lung location: lower lobe of lung Pneumonia type: due to unspecified organism Qualified Code(s): J18.9 - Pneumonia, unspecified organism Code(s): J18.9 - Pneumonia, unspecified organism Status: Acute (3) Suspected congestive heart failure: Code(s): R09.89 - Other specified symptoms and signs involving the circulatory and respiratory systems Status: Acute (4) Pulmonary emboli: Code(s): I26.99 - Other pulmonary embolism without acute cor pulmonale Status: Acute (5) Atrial fibrillation with rapid ventricular response: Code(s): I48.91 - Unspecified atrial fibrillation Status: Acute (6) Elevated troponin: Code(s): R79.89 - Other specified abnormal findings of blood chemistry Status: Acute Plan Pulm embolism CTA chest reviewed s/p Heparin infusion now on Eliquis 10mg bid x 7 days, then to 5mg bid after 7 days switch to PO AC tomorrow monitor AFib RVR Continue above anticoagulation ECHO EF 55-60 % continue Metoprolol Cardiology following CKD, stage III cr 1.3 baseline HTN Titrate home meds with clinical course Overactive bladder continue home meds Anxiety continue home meds DVT prophylaxis on Eiquis PT/OT recommends Rehab placement Subjective Date/time seen: 05/02/24 14:49 Interval history: patient's HR improved but still elevated cardiology adjusted Metoprolol to 50mg bid this morning Review of Systems Review of Systems: 12 systems were reviewed and are negativ e except for as per HPI. Exam Narrative: General: Well-developed, nontoxic-appearing elderly female sitting up in bed on BiPAP. Weight: 132 kg. BMI: 48.4. HEENT: PERRL, EOMI. Sclera anicteric. Oral mucosa appears moist through the BiPAP mask. Neck: Supple. Exam limited due to neck circumference. No obvious jugular venous distention. Respiratory: On BiPAP and able to speak freely through the mask. Lung sounds are diminished at the bases with scattered crackles and occasional rhonchi and wheezing which improved with coughing. Cardiovascular: Irregularly irregular rate and rhythm. Gastrointestinal: Abdomen is soft, obese, nontender, and nondistended with positive bowel sounds. Skin: Warm and dry. Heavily callused feet. Extremities: No cyanosis or clubbing. Mild edema of the bilateral lower extremities. No palpable knots or cords. Peripheral pulses intact. Neurological: Alert. Cranial nerves 2-12 are grossly intact. No gross focal deficits to casual conversation. Psychiatric: Cooperative with appropriate mood. A bit anxious. Objective Data Vital Signs Vital Signs: Vital Signs - 24 hr 05/01/24 15:58 05/01/24 16:00 05/01/24 16:00 Temperature 97.8 F Pulse Rate 123 H 121 H Respiratory Rate 24 H Blood Pressure 106/77 Pulse Oximetry 94 97 Oxygen Delivery Nasal Cannula Oxygen Flow Rate 3 05/01/24 18:00 05/01/24 20:05 05/01/24 20:25 Temperature 97.8 F Pulse Rate 122 H 112 H 109 H Respiratory Rate 22 H Blood Pressure 112/79 Pulse Oximetry 100 Oxygen Delivery Oxygen Flow Rate 05/01/24 20:20 05/01/24 20:00 05/01/24 22:00 Temperature Pulse Rate 114 H 102 H Respiratory Rate Blood Pressure Pulse Oximetry 98 Oxygen Delivery Nasal Cannula Oxygen Flow Rate 3 05/01/24 21:50 05/01/24 21:50 05/01/24 22:04 Temperature Pulse Rate 84 84 97 Respiratory Rate 33 H 33 H 30 H Blood Pressure Pulse Oximetry 100 Oxygen Delivery BiPAP Oxygen Flow Rate 05/02/24 00:00 05/02/24 00:00 05/02/24 00:00 Temperature 98.1 F Pulse Rate 119 H 95 Respiratory Rate 16 Blood Pressure 135/97 H Pulse Oximetry 100 100 Oxygen Delivery Nasal Cannula Oxygen Flow Rate 2 05/02/24 02:00 05/02/24 03:54 05/02/24 04:00 Temperature Pulse Rate 100 92 110 H Respiratory Rate 24 H 23 H Blood Pressure Pulse Oximetry Oxygen Delivery Oxygen Flow Rate 05/02/24 04:00 05/02/24 04:00 05/02/24 06:00 Temperature Pulse Rate 100 100 Respiratory Rate Blood Pressure Pulse Oximetry 99 Oxygen Delivery Nasal Cannula Oxygen Flow Rate 2 05/02/24 04:00 05/02/24 07:26 05/02/24 08:08 Temperature 97.7 F 97.8 F Pulse Rate 104 H 114 H Respiratory Rate 18 18 Blood Pressure 132/91 H 122/88 Pulse Oximetry 97 93 Oxygen Delivery Nasal Cannula Oxygen Flow Rate 3 05/02/24 08:40 05/02/24 08:40 05/02/24 08:44 Temperature Pulse Rate 111 H 111 H 117 H Respiratory Rate 20 20 Blood Pressure Pulse Oximetry 96 Oxygen Delivery Nasal Cannula Oxygen Flow Rate 3 05/02/24 11:20 05/02/24 12:00 05/02/24 14:23 Temperature 97.7 F Pulse Rate 108 H 103 H Respiratory Rate 22 H 20 Blood Pressure 125/77 Pulse Oximetry 95 97 Oxygen Delivery Nasal Cannula Nasal Cannula Oxygen Flow Rate 3 2 05/02/24 14:23 05/02/24 14:36 Temperature Pulse Rate 103 H 105 H Respiratory Rate 20 20 Blood Pressure Pulse Oximetry Oxygen Delivery Oxygen Flow Rate Intake/Output Intake/Output: Intake & Output 04/29/24 04/30/24 05/01/24 05/02/24 23:59 23:59 23:59 23:59 Intake Total 2940.4 2255.1 991.6 Output Total 700 1650 Balance 2940.4 1555.1 -658.4 Meds/Results Medications: Active Medications Generic Name Dose Route Start Last Admin Trade Name Freq PRN Reason Stop Dose Admin Acetaminophen 650 mg 04/30/24 13:36 Acetaminophen 325 Mg Tablet PO Q4H PRN Mild Pain (1-3) or Fever Apixaban 10 mg 05/02/24 09:00 05/02/24 08:43 Apixaban 5 Mg Tablet PO 10 mg Q12HR BEVERLY Administration Atorvastatin Calcium 10 mg 05/01/24 09:00 05/02/24 08:43 Atorvastatin 10 Mg Tablet PO 10 mg DAILY B[facility] Administration Clonazepam 0.5 mg 04/30/24 21:10 Clonazepam (*Crx) 0.5 Mg Tablet PO DAILY PRN panic attack(s) Doxycycline Hyclate 100 mg 04/30/24 21:45 05/02/24 08:44 Doxycycline Hyclate 100 Mg Tablet PO 100 mg Q12HR BEVERLY Administration Furosemide 20 mg 05/02/24 09:00 05/02/24 08:45 Furosemide Inj 40 Mg/4 Ml Vial IV PUSH 20 mg BID BEVERLY Administration Guaifenesin 1,200 mg 04/30/24 21:45 05/02/24 08:44 Guaifenesin 12 Hr 600 Mg Tabcr PO 1,200 mg Q12HR B[facility] Administration Ceftriaxone Sodium 1 gm in 50 mls @ 100 mls/hr 05/01/24 12:00 05/02/24 13:15 Rocephin 1 Gm/Ns 50 Ml IVPB 100 mls/hr Q24H B[facility] Administration Ipratropium [place] 0.5 mg 05/01/24 02:00 05/02/24 14:20 Ipratropium Br 0.02% Inh Soln 0.5 Mg/2.5 Ml Vial INHALATION 0.5 mg Q6HRT B[facility] Administration Levalbuterol HCl 1.25 mg 05/01/24 02:00 05/02/24 14:20 Levalbuterol Neb 1.25 Mg/3 Ml INHALATION 1.25 mg Q6HRT B[facility] Administration Loratadine 10 mg 05/01/24 09:00 05/02/24 08:44 Loratadine 10 Mg Tablet PO 10 mg DAILY B[facility] Administration Metoprolol Tartrate 50 mg 05/02/24 21:00 Metoprolol Tartrate 50 Mg Tab PO Q12HR BEVERLY Pantoprazole Sodium 40 mg 04/30/24 21:15 05/02/24 08:44 Pantoprazole 40 Mg Tablet PO 40 mg Q12HR BEVER[facility] Administration Perflutren Lipid Microsphere 0 ml 05/01/24 11:53 Perflutren Lipid Microspheres 1.5 Ml Vial Diluted To 10 Ml Total Volume IV PUSH 05/04/24 11:54 ONCE PRN adequate visualization Protocol Polyethylene Glycol 17 gm 05/02/24 09:02 05/02/24 10:45 Polyethylene Glycol 3350 17 Gm Powd.Pack PO 17 gm QAM BEVERLY Administration Tramadol HCl 50 mg 04/30/24 21:11 Tramadol Hcl (*Crx) 50 Mg Tablet PO DAILY PRN pain 4-10 Radiology Results: ITS Impressions Chest/Abdomen/Pelvis CTA 04/30/24 11:59 IMPRESSION: Mild pulmonary embolism involving right upper and middle lobes Left thyroid enlargement Cardiomegaly Moderate bilateral pleural effusions Bilateral lower lobe infiltrates and atelectasis Status post cholecystectomy Bilateral renal cysts 3 mm nonobstructing right renal calculus Status post vertebroplasty at burst fracture of T12 Chest X-Ray 04/30/24 12:29 IMPRESSION: Moderate pleural effusions, better demonstrated on CT examination today Bilateral lower lobe infiltrate and/or atelectasis Cardiomegaly, aortic atherosclerosis Status post vertebroplasty at T12 fracture Labs Labs: Laboratory Results - last 24 hr 05/01/24 05/02/24 05/02/24 17:57 00:46 04:02 WBC 8.1 RBC 3.80 L Hgb 11.9 L Hct 39.0 MCV 102.6 H MCH 31.3 MCHC 30.5 L RDW 13.6 Plt Count 147 L MPV 12.0 H Immature Gran % (Auto) 0.2 Neut % (Auto) 65.4 Lymph % (Auto) 21.2 [place] % (Auto) 9.2 H Eos % (Auto) 3.1 Baso % (Auto) 0.9 Lymph # (Auto) 1.71 [place] # (Auto) 0.7 H Eos # (Auto) 0.3 Baso # (Auto) 0.1 Abs Immat Gran (auto) 0.02 Absolute Neuts (auto) 5.3 Absolute Nucleated RBC 0.000 Nucleated RBC % 0.0 APTT 82.9 H 103.6 H Sodium 137 Potassium 4.1 Chloride 105 Carbon Dioxide 28 Anion Gap 4 BUN 13 Creatinine 1.30 H Estim Creat Clear Calc 40 Estimated GFR 39 L Glucose 102 Lactic Acid 1.0 Calcium 9.7 Magnesium 1.9 Total Bilirubin 0.6 AST 71 H ALT 25 Alkaline Phosphatase 63 Total Protein 7.0 Albumin 3.6 Quality VTE Prophylaxis VTE prophylaxis: pharmacologic ordered (on heparin drip)
[2024-05-02] MEDS: METOPROLOL TARTRATE 50 MG TAB PO (20:26)
[2024-05-02] MEDS: ACETAMINOPHEN 325 MG TABLET 650 MG PO (20:26)
[2024-05-03] VITALS (22 sets, daily range): BP systolic 109–151; BP diastolic 74–95; PULSE 79–107; RESP 18–24; TEMP 36.3–36.9; O2SAT 94–99
[2024-05-03] MEDS: LEVALBUTEROL NEB 1.25 MG/3 ML INHALATION ×4 (01:54→20:09)
[2024-05-03] MEDS: IPRATROPIUM BR 0.02% INH SOLN 0.5 MG/2.5 ML VIAL INHALATION ×4 (01:54→20:09)
[2024-05-03 05:05] LABS: Basophils Percent Auto 0.5 % (0.2-1.2); Eosinophils Absolute Auto 0.3 K/mm3 (0-0.3); Hematocrit 37.5 % (37.0-47.0); Hemoglobin 11.7 g/dL (12.0-15.0); Immature Granulocyte Absolute 0.02 K/mm3 (0.00-0.031); Immature Granulocyte Percent A 0.3 % (0-0.5); Lymphocytes Absolute Auto 1.88 K/mm3 (0.9-3.2); Lymphocytes Percent Auto 25.8 % (18.3-44.2); Mean Corpuscular HGB Conc 31.2 g/dl (32-36); Mean Corpuscular Volume 102.5 fl (80-100); Mean Platelet Volume 11.7 fl (7.4-10.4); Monocytes Absolute Auto 0.7 K/mm3 (0.1-0.6); Neutrophils Absolute Auto 4.3 K/mm3 (1.3-6.7); Neutrophils Percent Auto 59.4 % (45.5-73.1); Platelet Count Result 148 k/mm3 (150-375); Red Blood Count 3.66 M/mm3 (4.2-5.4); Red Cell Distribution Width 13.9 % (11.5-14.5); White Blood Count 7.3 K/mm3 (4.5-10.0)
[2024-05-03 05:19] LABS: Alanine Aminotransferase 24 U/L (6-35); Albumin Level 3.5 g/dL (3.5-5.1); Alkaline Phosphatase 60 U/L (38-126); Anion Gap 3 mmol/L (4-12); Aspartate Amino Transferase 51 U/L (14-36); Bilirubin,Total 0.7 mg/dL (0.2-1.3); Blood Urea Nitrogen 13 mg/dL (7-17); Calcium 9.7 mg/dL (8.4-10.2); Carbon Dioxide 31 mmol/L (22-30); Chloride 102 mmol/L (98-107); Estimated CRCL calculation 39 ml/min; Estimated Glomerular Filt Rate 39; Glucose 101 mg/dL (65-110); Magnesium 1.9 mg/dL (1.6-2.3); Potassium 3.9 mmol/L (3.4-5.0); Sodium 136 mmol/L (137-145)
[2024-05-03] MEDS: guaiFENesin 12 HR 600 MG TABCR 1200 MG PO ×2 (08:20→20:45)
[2024-05-03] MEDS: PANTOPRAZOLE 40 MG TABLET PO ×2 (08:20→20:45)
[2024-05-03] MEDS: APIXABAN 5 MG TABLET 10 MG PO ×2 (08:20→20:45)
[2024-05-03] MEDS: polyethylene glycoL 3350 17 GM POWD.PACK PO (08:20)
[2024-05-03] MEDS: LORATADINE 10 MG TABLET PO (08:21)
[2024-05-03] MEDS: METOPROLOL TARTRATE 50 MG TAB PO ×2 (08:21→20:45)
[2024-05-03] MEDS: FUROSEMIDE INJ 40 MG/4 ML VIAL 20 MG IV PUSH (08:21)
[2024-05-03] MEDS: ATORVASTATIN 10 MG TABLET PO (08:21)
[2024-05-03] MEDS: DOXYCYCLINE HYCLATE 100 MG TABLET PO ×2 (08:21→20:45)
--- NOTE | 2024-05-03 14:53 | PCOTNOTE ---
Attempted to see Patient this P.M. Patient stated she had just been transferred upstairs to the floor and not up for more therapy today. Patient requested OT come back tomorrow for treatment session.
--- NOTE | 2024-05-03 14:59 | PC.NURSE ---
This patient, Klaudia Larry, was received from IMU room 207 on 05/03/24 at 1440. Patient/family oriented to unit policies and routines
--- NOTE | 2024-05-03 16:25 | PC.NURSE ---
This patient, Klaudia Larry, was transferred to [facility] on 05/03/24 at 1440. Personal belongings sent with patient. Report given to MARIAM Torres. Stapled envelope containing controlled medications from safe were handed directly to MARIAM Torres to put in [facility]urg [facility]. Appropriate documentation sent with patient.
[2024-05-03] MEDS: FUROSEMIDE 20 MG TABLET PO (16:37)
--- NOTE | 2024-05-03 17:10 | PM.IMPN ---
Progress Note: A&P Assessment and Plan (1) Acute respiratory failure with hypoxia: Code(s): J96.01 - Acute respiratory failure with hypoxia Status: Acute (2) Pneumonia: Qualifiers: Laterality: bilateral Lung location: lower lobe of lung Pneumonia type: due to unspecified organism Qualified Code(s): J18.9 - Pneumonia, unspecified organism Code(s): J18.9 - Pneumonia, unspecified organism Status: Acute (3) Suspected congestive heart failure: Code(s): R09.89 - Other specified symptoms and signs involving the circulatory and respiratory systems Status: Acute (4) Pulmonary emboli: Code(s): I26.99 - Other pulmonary embolism without acute cor pulmonale Status: Acute (5) Atrial fibrillation with rapid ventricular response: Code(s): I48.91 - Unspecified atrial fibrillation Status: Acute (6) Elevated troponin: Code(s): R79.89 - Other specified abnormal findings of blood chemistry Status: Acute Plan Pulm embolism CTA chest reviewed s/p Heparin infusion now on Eliquis 10mg bid x 7 days, then to 5mg bid after 7 days switch to PO AC tomorrow monitor PNA Vital signs improved and stable Started on Amoxil clav and Doxy monitor cultures MRSA negative encourage oral intake AFib RVR Continue above anticoagulation ECHO EF 55-60 % continue Metoprolol Cardiology following CKD, stage III cr 1.3 baseline HTN Titrate home meds with clinical course Overactive bladder continue home meds Anxiety continue home meds DVT prophylaxis on Eiquis PT/OT recommends Rehab placement Subjective Date/time seen: 05/03/24 17:10 Interval history: Patient was sleeping during the evaluation. No acute events overnight. Started oral Augmentin and doxycycline for 5 days Review of Systems Review of Systems: 12 systems were reviewed and are negative except for as per HPI. Exam Narrative: General: Well-developed, nontoxic-appearing elderly female sitting up in bed on BiPAP. Weight: 132 kg. BMI: 48.4. HEENT: PERRL, EOMI. Sclera anicteric. Oral mucosa appears moist through the BiPAP mask. Neck: Supple. Exam limited due to neck circumference. No obvious jugular venous distention. Respiratory: On BiPAP and able to speak freely through the mask. Lung sounds are diminished at the bases with scattered crackles and occasional rhonchi and wheezing which improved with coughing. Cardiovascular: Irregularly irregular rate and rhythm. Gastrointestinal: Abdomen is soft, obese, nontender, and nondistended with positive bowel sounds. Skin: Warm and dry. Heavily callused feet. Extremities: No cyanosis or clubbing. Mild edema of the bilateral lower extremities. No palpable knots or cords. Peripheral pulses intact. Neurological: Alert. Cranial nerves 2-12 are grossly intact. No gross focal deficits to casual conversation. Psychiatric: Cooperative with appropriate mood. A bit anxious. Objective Data Vital Signs Vital Signs: Vital Signs - 24 hr 05/02/24 17:30 05/02/24 20:00 05/02/24 20:19 Temperature 98.0 F Pulse Rate 121 H 103 H Respiratory Rate 24 H Blood Pressure 114/56 L Pulse Oximetry 95 93 Oxygen Delivery Nasal Cannula Oxygen Flow Rate 2 05/02/24 20:19 05/02/24 20:26 05/02/24 20:31 Temperature Pulse Rate 100 103 H 105 H Respiratory Rate 20 20 Blood Pressure Pulse Oximetry Oxygen Delivery Oxygen Flow Rate 05/02/24 20:00 05/02/24 22:00 05/02/24 20:00 Temperature Pulse Rate 109 H 88 Respiratory Rate Blood Pressure Pulse Oximetry 95 Oxygen Delivery Nasal Cannula Oxygen Flow Rate 1 05/03/24 00:00 05/03/24 00:00 05/03/24 00:00 Temperature 98.4 F Pulse Rate 97 89 Respiratory Rate 22 H Blood Pressure 109/78 Pulse Oximetry 94 94 Oxygen Delivery Nasal Cannula Oxygen Flow Rate 1 05/03/24 01:54 05/03/24 02:07 05/03/24 02:00 Temperature Pulse Rate 85 91 96 Respiratory Rate 18 20 Blood Pressure Pulse Oximetry Oxygen Delivery Oxygen Flow Rate 05/03/24 04:00 05/03/24 04:00 05/03/24 04:00 Temperature 98.1 F Pulse Rate 83 79 Respiratory Rate 24 H Blood Pressure 127/81 Pulse Oximetry 96 96 Oxygen Delivery Nasal Cannula Oxygen Flow Rate 1 05/03/24 06:00 05/03/24 07:30 05/03/24 07:30 Temperature Pulse Rate 84 85 Respiratory Rate 20 Blood Pressure Pulse Oximetry 95 Oxygen Delivery Nasal Cannula Oxygen Flow Rate 2 05/03/24 07:44 05/03/24 08:16 05/03/24 08:21 Temperature 97.4 F L Pulse Rate 93 80 105 H Respiratory Rate 20 20 Blood Pressure 151/91 H Pulse Oximetry 98 Oxygen Delivery Oxygen Flow Rate 05/03/24 13:37 05/03/24 13:47 05/03/24 15:50 Temperature Pulse Rate 96 86 Respiratory Rate 20 20 Blood Pressure Pulse Oximetry 97 Oxygen Delivery Nasal Cannula Oxygen Flow Rate 1 05/03/24 15:52 05/03/24 08:00 05/03/24 12:00 Temperature 97.7 F Pulse Rate 101 H 101 H 84 Respiratory Rate 20 Blood Pressure 138/95 H Pulse Oximetry 99 Oxygen Delivery Oxygen Flow Rate 05/03/24 08:00 Temperature Pulse Rate Respiratory Rate Blood Pressure Pulse Oximetry 98 Oxygen Delivery Nasal Cannula Oxygen Flow Rate 1 Intake/Output Intake/Output: Intake & Output 04/30/24 05/01/24 05/02/24 05/03/24 23:59 23:59 23:59 23:59 Intake Total 2940.4 2255.1 1841.6 1210 Output Total 700 3350 700 Balance 2940.4 1555.1 -1508.4 510 Meds/Results Medications: Active Medications Generic Name Dose Route Start Last Admin Trade Name Freq PRN Reason Stop Dose Admin Acetaminophen 650 mg 04/30/24 13:36 05/02/24 20:26 Acetaminophen 325 Mg Tablet PO 650 mg Q4H PRN Administration Mild Pain (1-3) or Fever Amoxicillin/Clavulanate Potassium 1 tablet 05/04/24 09:00 Amoxicillin/Clavulanate K 875-125 Mg Tab PO 05/04/24 21:01 Q12HR BEVERLY Apixaban 10 mg 05/02/24 09:00 05/03/24 08:20 Apixaban 5 Mg Tablet PO 05/08/24 21:01 10 mg Q12HR BEVERLY Administration Apixaban 5 mg 05/09/24 09:00 Apixaban 5 Mg Tablet PO Q12HR BEVERLY Atorvastatin Calcium 10 mg 05/01/24 09:00 05/03/24 08:21 Atorvastatin 10 Mg Tablet PO 10 mg DAILY BEVERLY Administration Clonazepam 0.5 mg 04/30/24 21:10 Clonazepam (*Crx) 0.5 Mg Tablet PO DAILY PRN panic attack(s) Doxycycline Hyclate 100 mg 04/30/24 21:45 05/03/24 08:21 Doxycycline Hyclate 100 Mg Tablet PO 05/04/24 21:01 100 mg Q12HR BEVERLY Administration Furosemide 20 mg 05/03/24 17:00 05/03/24 16:37 Furosemide 20 Mg Tablet PO 20 mg BID BEVERLY Administration Guaifenesin 1,200 mg 04/30/24 21:45 05/03/24 08:20 Guaifenesin 12 Hr 600 Mg Tabcr PO 1,200 mg Q12HR BEVERLY Administration Ipratropium [place] 0.5 mg 05/01/24 02:00 05/03/24 13:37 Ipratropium Br 0.02% Inh Soln 0.5 Mg/2.5 Ml Vial INHALATION 0.5 mg Q6HRT BEVERLY Administration Levalbuterol HCl 1.25 mg 05/01/24 02:00 05/03/24 13:37 Levalbuterol Neb 1.25 Mg/3 Ml INHALATION 1.25 mg Q6HRT BEVERLY Administration Loratadine 10 mg 05/01/24 09:00 05/03/24 08:21 Loratadine 10 Mg Tablet PO 10 mg DAILY BEVERLY Administration Metoprolol Tartrate 50 mg 05/02/24 21:00 05/03/24 08:21 Metoprolol Tartrate 50 Mg Tab PO 50 mg Q12HR BEVERLY Administration Pantoprazole Sodium 40 mg 04/30/24 21:15 05/03/24 08:20 Pantoprazole 40 Mg Tablet PO 40 mg Q12HR BEVERLY Administration Perflutren Lipid Microsphere 0 ml 05/01/24 11:53 Perflutren Lipid Microspheres 1.5 Ml Vial Diluted To 10 Ml Total Volume IV PUSH 05/04/24 11:54 ONCE PRN adequate visualization Protocol Polyethylene Glycol 17 gm 05/02/24 09:02 05/03/24 08:20 Polyethylene Glycol 3350 17 Gm Powd.Pack PO 17 gm QAM BEVERLY Administration Tramadol HCl 50 mg 04/30/24 21:11 Tramadol Hcl (*Crx) 50 Mg Tablet PO DAILY PRN pain 4-10 Radiology Results: ITS Impressions Chest/Abdomen/Pelvis CTA 04/30/24 11:59 IMPRESSION: Mild pulmonary embolism involving right upper and middle lobes Left thyroid enlargement Cardiomegaly Moderate bilateral pleural effusions Bilateral lower lobe infiltrates and atelectasis Status post cholecystectomy Bilateral renal cysts 3 mm nonobstructing right renal calculus Status post vertebroplasty at burst fracture of T12 Chest X-Ray 04/30/24 12:29 IMPRESSION: Moderate pleural effusions, better demonstrated on CT examination today Bilateral lower lobe infiltrate and/or atelectasis Cardiomegaly, aortic atherosclerosis Status post vertebroplasty at T12 fracture Labs Labs: Laboratory Results - last 24 hr 05/03/24 04:18 WBC 7.3 RBC 3.66 L Hgb 11.7 L Hct 37.5 MCV 102.5 H MCH 32.0 MCHC 31.2 L RDW 13.9 Plt Count 148 L MPV 11.7 H Immature Gran % (Auto) 0.3 Neut % (Auto) 59.4 Lymph % (Auto) 25.8 [place] % (Auto) 10.0 H Eos % (Auto) 4.0 Baso % (Auto) 0.5 Lymph # (Auto) 1.88 [place] # (Auto) 0.7 H Eos # (Auto) 0.3 Baso # (Auto) 0.0 Abs Immat Gran (auto) 0.02 Absolute Neuts (auto) 4.3 Absolute Nucleated RBC 0.000 Nucleated RBC % 0.0 APTT 33.0 Sodium 136 L Potassium 3.9 Chloride 102 Carbon Dioxide 31 H Anion Gap 3 L BUN 13 Creatinine 1.30 H Estim Creat Clear Calc 39 Estimated GFR 39 L Glucose 101 Calcium 9.7 Magnesium 1.9 Total Bilirubin 0.7 AST 51 H ALT 24 Alkaline Phosphatase 60 Total Protein 6.0 L Albumin 3.5 Quality VTE Prophylaxis VTE prophylaxis: pharmacologic ordered (on heparin drip) Hospitalist MIPS Advance Care Plan I have confirmed that the patient's Advanced Care Plan is present, code status is documented, or surrogate decision maker is listed in patient medical record.: Yes Medication Reconciliation I have utilized all available resources to obtain, update and review the patients current medications (includes all prescriptions, OTC, herbals, cannabis, and nutritional supplements).: Yes
[2024-05-03] MEDS: ACETAMINOPHEN 325 MG TABLET 650 MG PO (20:46)
[2024-05-04] VITALS (15 sets, daily range): BP systolic 116–134; BP diastolic 56–86; PULSE 89–103; RESP 14–22; TEMP 36.1–36.3; O2SAT 94–97
[2024-05-04] MEDS: IPRATROPIUM BR 0.02% INH SOLN 0.5 MG/2.5 ML VIAL INHALATION ×3 (02:19→13:39)
[2024-05-04] MEDS: LEVALBUTEROL NEB 1.25 MG/3 ML INHALATION ×3 (02:19→13:39)
--- NOTE | 2024-05-04 05:27 | PCRCNOTE ---
Apnea link not complete because there wasn't any pulse ox.
[2024-05-04 07:06] LABS: Hematocrit 39.2 % (37.0-47.0); Hemoglobin 12.1 g/dL (12.0-15.0); Mean Corpuscular HGB Conc 30.9 g/dl (32-36); Mean Corpuscular Hemoglobin 32.1 pg (26-34); Mean Platelet Volume 11.9 fl (7.4-10.4); Platelet Count Result 154 k/mm3 (150-375); Red Blood Count 3.77 M/mm3 (4.2-5.4); Red Cell Distribution Width 13.9 % (11.5-14.5); White Blood Count 7.7 K/mm3 (4.5-10.0)
[2024-05-04 07:45] LABS: Alanine Aminotransferase 23 U/L (6-35); Albumin Level 3.6 g/dL (3.5-5.1); Alkaline Phosphatase 57 U/L (38-126); Anion Gap 2 mmol/L (4-12); Aspartate Amino Transferase 41 U/L (14-36); Bilirubin,Total 0.7 mg/dL (0.2-1.3); Blood Urea Nitrogen 17 mg/dL (7-17); Carbon Dioxide 36 mmol/L (22-30); Chloride 100 mmol/L (98-107); Estimated CRCL calculation 43 ml/min; Estimated Glomerular Filt Rate 43; Glucose 99 mg/dL (65-110); Potassium 4.7 mmol/L (3.4-5.0); Sodium 138 mmol/L (137-145)
[2024-05-04] MEDS: APIXABAN 5 MG TABLET 10 MG PO ×2 (09:28→18:59)
[2024-05-04] MEDS: DOXYCYCLINE HYCLATE 100 MG TABLET PO ×2 (09:29→18:59)
[2024-05-04] MEDS: PANTOPRAZOLE 40 MG TABLET PO ×2 (09:29→18:58)
[2024-05-04] MEDS: guaiFENesin 12 HR 600 MG TABCR 1200 MG PO ×2 (09:29→18:58)
[2024-05-04] MEDS: FUROSEMIDE 20 MG TABLET PO ×2 (09:29→17:11)
[2024-05-04] MEDS: polyethylene glycoL 3350 17 GM POWD.PACK PO (09:30)
[2024-05-04] MEDS: METOPROLOL TARTRATE 50 MG TAB PO ×2 (09:30→18:58)
[2024-05-04] MEDS: AMOXICILLIN/CLAVULANATE K 875-125 MG TAB 1 TABLET PO ×2 (09:30→18:59)
[2024-05-04] MEDS: ATORVASTATIN 10 MG TABLET PO (09:30)
[2024-05-04] MEDS: LORATADINE 10 MG TABLET PO (09:30)
[2024-05-04] MEDS: traMADol HCL (*CRX) 50 MG TABLET PO ×2 (09:33→19:03)
--- NOTE | 2024-05-04 15:19 | PM.IMPN ---
Subjective Date/time seen: 05/04/24 15:19 Objective Data Vital Signs Vital Signs: Vital Signs - 24 hr 05/03/24 15:50 05/03/24 15:52 05/03/24 16:00 Temperature 97.7 F Pulse Rate 101 H 97 Respiratory Rate 20 Blood Pressure 138/95 H Pulse Oximetry 97 99 Oxygen Delivery Nasal Cannula Oxygen Flow Rate 1 05/03/24 20:11 05/03/24 20:11 05/03/24 20:23 Temperature Pulse Rate 101 H 101 H Respiratory Rate 22 H 22 H Blood Pressure Pulse Oximetry 95 Oxygen Delivery Nasal Cannula Oxygen Flow Rate 1 05/03/24 20:30 05/03/24 20:45 05/03/24 20:00 Temperature 97.5 F L Pulse Rate 94 107 H Respiratory Rate 19 Blood Pressure 132/74 Pulse Oximetry 99 99 Oxygen Delivery Nasal Cannula Oxygen Flow Rate 1 05/03/24 20:00 05/04/24 00:00 05/04/24 02:19 Temperature Pulse Rate 96 91 89 Respiratory Rate 22 H Blood Pressure Pulse Oximetry Oxygen Delivery Oxygen Flow Rate 05/04/24 02:32 05/04/24 04:00 05/04/24 05:53 Temperature 96.9 F L Pulse Rate 99 101 H 91 Respiratory Rate 22 H 14 Blood Pressure 116/86 Pulse Oximetry 94 Oxygen Delivery Oxygen Flow Rate 05/04/24 07:58 05/04/24 07:58 05/04/24 08:10 Temperature Pulse Rate 96 103 H Respiratory Rate 22 H 22 H Blood Pressure Pulse Oximetry 95 Oxygen Delivery Nasal Cannula Oxygen Flow Rate 1 05/04/24 09:30 05/04/24 08:00 05/04/24 09:30 Temperature Pulse Rate 94 100 Respiratory Rate Blood Pressure Pulse Oximetry 97 Oxygen Delivery Nasal Cannula Oxygen Flow Rate 1 05/04/24 13:41 05/04/24 13:54 05/04/24 14:00 Temperature 97.3 F L Pulse Rate 95 97 100 Respiratory Rate 22 H 22 H 20 Blood Pressure 134/56 L Pulse Oximetry 94 Oxygen Delivery Oxygen Flow Rate Intake/Output Intake/Output: Intake & Output 05/01/24 05/02/24 05/03/24 05/04/24 23:59 23:59 23:59 23:59 Intake Total 2255.1 1841.6 1690 860 Output Total 700 3350 700 900 Balance 1555.1 -1508.4 990 -40 Meds/Results Medications: Active Medications Generic Name Dose Route Start Last Admin Trade Name Freq PRN Reason Stop Dose Admin Acetaminophen 650 mg 04/30/24 13:36 05/03/24 20:46 Acetaminophen 325 Mg Tablet PO 650 mg Q4H PRN Administration Mild Pain (1-3) or Fever Amoxicillin/Clavulanate Potassium 1 tablet 05/04/24 09:00 05/04/24 09:30 Amoxicillin/Clavulanate K 875-125 Mg Tab PO 05/04/24 21:01 1 tablet Q12HR BEVERLY Administration Apixaban 10 mg 05/02/24 09:00 05/04/24 09:28 Apixaban 5 Mg Tablet PO 05/08/24 21:01 10 mg Q12HR BEVERLY Administration Apixaban 5 mg 05/09/24 09:00 Apixaban 5 Mg Tablet PO Q12HR BEVERLY Atorvastatin Calcium 10 mg 05/01/24 09:00 05/04/24 09:30 Atorvastatin 10 Mg Tablet PO 10 mg DAILY BEVERLY Administration Clonazepam 0.5 mg 04/30/24 21:10 Clonazepam (*Crx) 0.5 Mg Tablet PO DAILY PRN panic attack(s) Doxycycline Hyclate 100 mg 04/30/24 21:45 05/04/24 09:29 Doxycycline Hyclate 100 Mg Tablet PO 05/04/24 21:01 100 mg Q12HR BEVERLY Administration Furosemide 20 mg 05/03/24 17:00 05/04/24 09:29 Furosemide 20 Mg Tablet PO 20 mg BID BEVERLY Administration Guaifenesin 1,200 mg 04/30/24 21:45 05/04/24 09:29 Guaifenesin 12 Hr 600 Mg Tabcr PO 1,200 mg Q12HR BEVERLY Administration Ipratropium [place] 0.5 mg 05/01/24 02:00 05/04/24 13:39 Ipratropium Br 0.02% Inh Soln 0.5 Mg/2.5 Ml Vial INHALATION 0.5 mg Q6HRT BEVERLY Administration Levalbuterol HCl 1.25 mg 05/01/24 02:00 05/04/24 13:39 Levalbuterol Neb 1.25 Mg/3 Ml INHALATION 1.25 mg Q6HRT BEVERLY Administration Loratadine 10 mg 05/01/24 09:00 05/04/24 09:30 Loratadine 10 Mg Tablet PO 10 mg DAILY BEVER[facility] Administration Metoprolol Tartrate 50 mg 05/02/24 21:00 05/04/24 09:30 Metoprolol Tartrate 50 Mg Tab PO 50 mg Q12HR BEVERLY Administration Pantoprazole Sodium 40 mg 04/30/24 21:15 05/04/24 09:29 Pantoprazole 40 Mg Tablet PO 40 mg Q12HR BEVERLY Administration Polyethylene Glycol 17 gm 05/02/24 09:02 05/04/24 09:30 Polyethylene Glycol 3350 17 Gm Powd.Pack PO 17 gm QAM BEVERLY Administration Tramadol HCl 50 mg 04/30/24 21:11 05/04/24 09:33 Tramadol Hcl (*Crx) 50 Mg Tablet PO 50 mg DAILY PRN Administration pain 4-10 Radiology Results: ITS Impressions Chest/Abdomen/Pelvis CTA 04/30/24 11:59 IMPRESSION: Mild pulmonary embolism involving right upper and middle lobes Left thyroid enlargement Cardiomegaly Moderate bilateral pleural effusions Bilateral lower lobe infiltrates and atelectasis Status post cholecystectomy Bilateral renal cysts 3 mm nonobstructing right renal calculus Status post vertebroplasty at burst fracture of T12 Chest X-Ray 04/30/24 12:29 IMPRESSION: Moderate pleural effusions, better demonstrated on CT examination today Bilateral lower lobe infiltrate and/or atelectasis Cardiomegaly, aortic atherosclerosis Status post vertebroplasty at T12 fracture Labs Labs: Laboratory Results - last 24 hr 05/04/24 06:32 WBC 7.7 RBC 3.77 L Hgb 12.1 Hct 39.2 MCV 104.0 H MCH 32.1 MCHC 30.9 L RDW 13.9 Plt Count 154 MPV 11.9 H Sodium 138 Potassium 4.7 Chloride 100 Carbon Dioxide 36 H Anion Gap 2 L BUN 17 Creatinine 1.20 H Estim Creat Clear Calc 43 Estimated GFR 43 L Glucose 99 Calcium 10.0 Total Bilirubin 0.7 AST 41 H ALT 23 Alkaline Phosphatase 57 Total Protein 6.0 L Albumin 3.6
--- NOTE | 2024-05-04 16:48 | PM.DS ---
DS: Admitting Diagnosis Discharge Date 05/04/2024 Admitting Diagnosis Shortness of breath DS: Discharge Diagnosis Discharge Diagnosis (1) Acute respiratory failure with hypoxia: Code(s): J96.01 - Acute respiratory failure with hypoxia Status: Acute Assessment and Plan: Please refer to hospital course for brief summary (2) Pneumonia: Qualifiers: Laterality: bilateral Lung location: lower lobe of lung Pneumonia type: due to unspecified organism Qualified Code(s): J18.9 - Pneumonia, unspecified organism Code(s): J18.9 - Pneumonia, unspecified organism Status: Acute (3) Suspected congestive heart failure: Code(s): R09.89 - Other specified symptoms and signs involving the circulatory and respiratory systems Status: Acute (4) Pulmonary emboli: Code(s): I26.99 - Other pulmonary embolism without acute cor pulmonale Status: Acute (5) Atrial fibrillation with rapid ventricular response: Code(s): I48.91 - Unspecified atrial fibrillation Status: Acute (6) Elevated troponin: Code(s): R79.89 - Other specified abnormal findings of blood chemistry Status: Acute Plan Pulm embolism CTA chest reviewed s/p Heparin infusion Started on Eliquis 10mg bid x 7 days, then to 5mg bid after 7 days PNA Vital signs improved and stable Started on Amoxil clav and Doxy monitor cultures MRSA negative encourage oral intake AFib RVR Continue above anticoagulation ECHO EF 55-60 % continue Metoprolol Cardiology following CKD, stage III cr 1.3 baseline HTN Titrate home meds with clinical course Overactive bladder continue home meds Anxiety continue home meds DVT prophylaxis on Eiquis PT/OT recommends Rehab placement DS: Summary Hospital Course Hospital Course: 84-year-old female with morbid obesity, chronic kidney disease, hypertension, hyperlipidemia, gastroesophageal reflux disease, overactive bladder, and anxiety who presented to the emergency department via private vehicle for evaluation of shortness of breath. The patient provides the following history. She has not been feeling well for about a week with productive of clear sputum, subjective fevers, and nausea. Her daughter who lives down the street has similar symptoms and she was reportedly diagnosed with walking pneumonia. Last night the patient slept poorly due to feelings of shortness of breath, cough, abdominal discomfort related to constipation, and anxiety. She was also feeling quite anxious and decided to take clonazepam however she accidentally took an extra add tramadol instead. She was eventually able to sleep however this morning she was still feeling short of breath and she came in for evaluation. She denies syncope, near syncope, headache, sore throat, chest pain, pleuritic pain, palpitations, vomiting, and calf pain. She has no known history of sleep apnea and denies concerns for the same. She denies significant caffeine and alcohol use. No drug use. In the ED: She appeared anxious with labored breathing on arrival to triage with an SpO2 of 72% on room air. She was in sinus tachycardia with rates in the 140s and initial blood pressure of 96/68. Labs were significant for a creatinine 1.90, lactic acid 3.7, proBNP 3020, troponin 0.023. CTA of the chest, abdomen, and pelvis showed evidence of mild pulmonary embolism involving the right upper and middle lobes, moderate bilateral pleural effusions, bilateral lower lobe infiltrates and atelectasis, and cardiomegaly. She was given a 2 L normal saline bolus with improvement blood pressures, metoprolol 5 mg IV for rapid atrial fibrillation with improvement, tract stone and doxycycline for possible pneumonia, and she was started on heparin drip for the pulmonary embolism. During the course of hospitalization patient was stabilized and discharged with the following instruction: Patient needs to complete amoxicillin clavulanic acid and doxycycline as indicated in the discharge medication instructions for pneumonia. Patient was diagnosed with pulmonary embolism and started on apixaban 10 mg p.o. b.i.d. until 05/08 and then start apixaban 5 mg p.o. b.i.d.. 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 Advised to take Lasix 20 mg p.o. as necessary if patient feels very congested, leg edema, weight gain. Patient will home medication losartan 25 mg p.o. q.d. is on hold and advised to discuss with the PCP and can continue if necessary. Patient is started on metoprolol 50 mg p.o. b.i.d. due to AFib. Status at Discharge Cognitive/behavioral status at discharge: Stable Time Spent with Patient Time attestation: Total time spent providing and/or coordinating discharge services: 45 minutes Exam Narrative: General: Well-developed, nontoxic-appearing elderly female sitting up in bed on BiPAP. Weight: 132 kg. BMI: 48.4. HEENT: PERRL, EOMI. Sclera anicteric. Oral mucosa appears moist through the BiPAP mask. Neck: Supple. Exam limited due to neck circumference. No obvious jugular venous distention. Respiratory: On BiPAP and able to speak freely through the mask. Lung sounds are diminished at the bases with scattered crackles and occasional rhonchi and wheezing which improved with coughing. Cardiovascular: Irregularly irregular rate and rhythm. Gastrointestinal: Abdomen is soft, obese, nontender, and nondistended with positive bowel sounds. Skin: Warm and dry. Heavily callused feet. Extremities: No cyanosis or clubbing. Mild edema of the bilateral lower extremities. No palpable knots or cords. Peripheral pulses intact. Neurological: Alert. Cranial nerves 2-12 are grossly intact. No gross focal deficits to casual conversation. Psychiatric: Cooperative with appropriate mood. A bit anxious. DS: Data Data Completed and Pending Labs on day of discharge: Labs from last 24 hours 05/04/24 06:32 WBC 7.7 RBC 3.77 L Hgb 12.1 Hct 39.2 MCV 104.0 H MCH 32.1 MCHC 30.9 L RDW 13.9 Plt Count 154 MPV 11.9 H Sodium 138 Potassium 4.7 Chloride 100 Carbon Dioxide 36 H Anion Gap 2 L BUN 17 Creatinine 1.20 H Estim Creat Clear Calc 43 Estimated GFR 43 L Glucose 99 Calcium 10.0 Total Bilirubin 0.7 AST 41 H ALT 23 Alkaline Phosphatase 57 Total Protein 6.0 L Albumin 3.6 Preliminary micro results at discharge 04/30/24 13:19 Blood Culture - Preliminary Blood 04/30/24 12:48 Blood Culture - Preliminary Blood Discharge Plan Discharge Attending physician on discharge: Boone Phillips Consulting providers: Tye Matt Discharging Clinician: Boone Phillips Anticipated Discharge Date/Time: 05/04/24 15:56 Patient Disposition: [facility] Prison/Asst Living Activity: as tolerated Diet: heart healthy Discharge Instructions: Patient needs to complete amoxicillin clavulanic acid and doxycycline for pneumonia. Patient was diagnosed with pulmonary embolism and started on apixaban 10 mg p.o. b.i.d. until 05/08 and then start apixaban 5 mg p.o. b.i.d.. 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 Advised to take Lasix 20 mg p.o. as necessary if patient feels very congested, leg edema, weight gain. Patient will home medication losartan 25 mg p.o. q.d. is on hold and advised to discuss with the PCP and can continue if necessary. Patient is started on metoprolol 50 mg p.o. b.i.d. due to AFib Patient Instructions: Antibiotic Form, Apixaban (By mouth) Stand Alone Forms: General Discharge Information Follow-up/Referrals: Trisha Banuelos APN-C [Advanced Practice Nurse] - Discharge Medications: New doxycycline hyclate 100 mg Tablet 100 mg PO Q12HR Qty: 1 0RF Eliquis 5 mg Tablet 10 mg PO Q12HR Qty: 10 0RF Rx Instructions: Continue apixaban 10 mg b.i.d. until 05/08. After that take apixaban 5 mg b.i.d. Eliquis 5 mg Tablet 5 mg PO Q12HR Qty: 30 0RF Rx Instructions: Continue apixaban 10 mg b.i.d. until 05/08. After that take apixaban 5 mg b.i.d. furosemide [Lasix] 20 mg tablet 20 mg PO DAILY Qty: 10 0RF Rx Instructions: Take Lasix as needed if feeling congested, leg edema, weight gain metoprolol tartrate 50 mg Tablet 50 mg PO Q12HR Qty: 30 0RF Continued loratadine 10 mg capsule 10 mg PO DAILY Qty: 100 1RF atorvastatin 10 mg tablet 10 mg PO DAILY Rx Instructions: TAKE 1 TABLET BY MOUTH DAILY omeprazole 40 mg capsule,delayed release(DR/EC) 40 mg PO DAILY Rx Instructions: TAKE 1 CAPSULE BY MOUTH DAILY tramadol 50 mg tablet 50 mg PO DAILY Qty: 30 0RF clonazepam 0.5 mg tablet 0.5 mg PO DAILY PRN (Reason: panic attack(s)) Qty: 30 0RF Held losartan 25 mg tablet 25 mg PO DAILY Qty: 90 0RF Hold Instructions: Resume on 05/25/24. Patient is started on metoprolol 50 mg p.o. b.i.d.. If necessary patient can discuss with the primary care physician in continuing losartan Date of admission: 04/30/24 15:33 Primary Care Provider: Susy Huber Admitting Provider: Aundrea Hill Attending physician on admission: Aundrea Hill Condition: Stable Quality VTE Prophylaxis VTE prophylaxis: pharmacologic ordered (on heparin drip)
[2024-05-04 18:14] LABS: Mycoplasma IgM Antibody Titer. 47 U/mL
[2024-05-04 18:58] LABS: Pneumococcal Antigen Urine NOT DETECTED
[2024-05-07 22:39] LABS: Legionella pneumophila Ag Ur. NOT DETECTED
== END 2024-05-04 19:45 | DRG 193 ==
LOC: ANHED 14:11 → ANHIMU 15:39 → ANH3MEDSUR 05-04 09:26 → ANHIMU 05-05 10:38
PROVIDERS: Physician Assistant; Admitting Provider Internal Medicine; Emergency Provider Preventive Medicine Aerospace Medicine; PCP Family Medicine; Visit Provider General Practice
DX: J18.9 Pneumonia, unspecified organism (principal); I26.99 Other pulmonary embolism without acute cor pulmonale; J96.01 Acute respiratory failure with hypoxia; I24.89 Other forms of acute ischemic heart disease; I13.0 Hypertensive heart and chronic kidney disease with heart failure and stage 1 through stage 4 chronic kidney disease, or unspecified chronic kidney disease; Z68.42 Body mass index [BMI] 45.0-49.9, adult; M47.16 Other spondylosis with myelopathy, lumbar region; I50.9 Heart failure, unspecified; I48.91 Unspecified atrial fibrillation; N18.31 Chronic kidney disease, stage 3a; N32.81 Overactive bladder; F41.1 Generalized anxiety disorder; I73.9 Peripheral vascular disease, unspecified; E66.01 Morbid (severe) obesity due to excess calories; K21.9 Gastro-esophageal reflux disease without esophagitis; Z79.82 Long term (current) use of aspirin; Z87.891 Personal history of nicotine dependence
CPT/HCPCS: 36415; 71045; 71275; 74177; 80053; 83605; 83735; 83880; 84443; 84484; 85025; 85027; 85610; 85730; 86738; 87040; 87070; 87205; 87449; 87636; 87641; 87899; 93005; 94002; 94003; 94640; 94667; 94668; 97110; 97161; 97165; 97530; 97535; 99285; A9270; C8929; J0696; J1644; J1940; J7030; Q9957; Q9967

== ENCOUNTER 2024-06-03 14:03 | Inpatient (IN) | payer OTHER, SELFPAY ==
[2024-06-03] VITALS (7 sets, daily range): BP systolic 108–139; BP diastolic 69–88; PULSE 110–127; RESP 17–25; TEMP 36.4; O2SAT 93–98
--- NOTE | ~2024-06-03 | MR_ITS ---
EXAMINATION: MR brain IAC wo con DATE: 06/04/2024 11:52 INDICATION: Altered mental status. TECHNIQUE: Magnetic resonance imaging (MRI) of the brain, brainstem, and internal auditory canals was performed without intravenous contrast. COMPARISON: Head CT 06/04/2024 FINDINGS: There are scattered areas of nonspecific increased T2-weighted signal intensity in the cere bral white matter, which is within normal limits for the patient's age. 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 There is mildly increased T2-weighted signal intensity in the medial temporal l obes bilaterally. There is no intracranial hemorrhage, acute infarction, or abnormal intracranial mas s lesion. The ventricles are normal in size. There is a right mastoid effusion. There are likely le ges of ocular lens replacement surgeries. There is mild mucosal thickening in the ethmoid sinuses. IMPRESSION: 1. Mildly increased T2-weighted signal intensity in the medial temporal lobes bilaterally suspicious for HSV encephalitis. 2. 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 Reviewed, dictated and finalized at location A. HEEL BUILDER IMPRESSION: 1. Mildly increased T2-weighted signal intensity in the medial temporal lobes b ilaterally suspicious for HSV encephalitis. 2. 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
--- NOTE | ~2024-06-03 | XR_ITS ---
CHEST RADIOGRAPH CLINICAL HISTORY: pleural effusions, fluid overload . COMPARISON: 06/03/2024 TECHNIQUE: Single portable view of the chest. FINDINGS The cardiomediastinal silhouette is enlarged, unchanged. Increased interstitial markings are identified bilaterally, findings suggesting mild pulmonary vascul ar congestion. Hazy opacification of the bilateral hemidiaphragms, findings consistent with bilateral pleural effusi ons, left greater than right. IMPRESSION: Findings consistent with congestive failure demonstrating progression from 06/03/2024 Reviewed, dictated and finalized at location A. ONAL SECRETARY IMPRESSION: Findings consistent with congestive failure demonstrating progression from 2024
--- NOTE | ~2024-06-03 | US_ITS ---
EXAMINATION:US venous doppler UE BI INDICATION:Positive d-dimer TECHNIQUE: Multiple grayscale, color flow and Doppler images of the bilateral upper extremity deep ve nous systems were obtained and reviewed. COMPARISON:None FINDINGS: The right jugular, subclavian, axillary, brachial, basilic, radial and ulnar veins demonst rate normal respiratory variation, augmentation and compressibility. Color flow is also seen within the right jugular, subclavian, axillary, brachial, basilic and radial veins. The right cephalic vein is not able to be visualized. The left jugular, axillary, brachial, basilic, cephalic, radial and ulnar veins demonstrate normal r espiratory variation, augmentation and compressibility. Color flow is also seen within the left jugular, axillary, brachial, basilic, cephalic and radial vei ns. Left subclavian vein was not able to be visualized. IMPRESSION: No deep venous thrombosis within the visualized portions of the bilateral upper extremities, as saji led above. Reviewed, dictated and finalized at location A. ICAL APPLICATION MANAGER IMPRESSION: No deep venous thrombosis within the visualized portions of the bilateral upper extremities, as detailed above.
--- NOTE | ~2024-06-03 | XR_ITS ---
EXAMINATION: XR chest 1V portable DATE: 06/03/2024 14:54 INDICATION: Shortness of breath. TECHNIQUE: A single frontal view of the chest was obtained. COMPARISON: Chest single view 04/30/2024, chest CT 04/30/2024 FINDINGS: There are airspace opacities in the mid and lower lung zones, worst at left lung base. Ther e are small pleural effusions. No pneumothorax. Cardiomegaly is noted. There are changes of vertebrop lasty at one level. IMPRESSION: 1. Worsened airspace in the mid and lower lung zones, consistent with atelectasis versus pneumonia. 2. Small pleural effusions. 3. Cardiomegaly. Reviewed, dictated and finalized at location A. GER FINANCE IMPRESSION: 1. Worsened airspace in the mid and lower lung zones, consistent with atelectas is versus pneumonia. 2. Small pleural effusions. 3. Cardiomegaly.
--- NOTE | ~2024-06-03 | US_ITS ---
EXAM: ABDOMEN ULTRASOUND HISTORY: liver fluid, GS COMPARISON: None FINDINGS: LIVER: The liver poorly visualized secondary to poor acoustic penetration. The main portal vein is patent demonstrating hepatopedal flow. GALLBLADDER: The gallbladder is poorly visualized, secondary to overlying gas. BILE DUCTS: Common bile duct measures 2.7mm. PANCREAS: Limited evaluation of the pancreas secondary to overlying bowel gas VASCULATURE : The abdominal aorta is nonaneurysmal. The IVC is patent. IMPRESSION: Poor visualization of the gallbladder and pancreas secondary to overlying bowel gas. Limited visualization of the liver. Cross-sectional imaging is suggested if patient is clinically abl e. Reviewed, dictated and finalized at location A. FICIAL STONE SETTER IMPRESSION: Poor visualization of the gallbladder and pancreas secondary to overlying bowel gas. Limited visualization of the liver. Cross-sectional imaging is suggested if pat ient is clinically able.
--- NOTE | ~2024-06-03 | CT_ITS ---
CTA chest PE protocol Ordering provider: Barbara Franco MD History: 84 years Female with . hypoxia, elev dimer . Comparison: None. Technique: CT angiogram chest was performed following timed intravenous injection of contrast. Thin s lice axial images and reformatted coronal images were obtained. Three dimensional reformatted images of the chest were also obtained using a [employer] workstation. . Automated exposure control and iterati ve reconstruction technique were employed. The dose-length product was 864.92 mGy-cm. 100 mL Omnipaqu e 350 was given IV. Findings: PULMONARY ARTERIES: No pulmonary embolus. VISUALIZED THORACIC INLET: Normal. MEDIASTINUM: Aorta/coronary arteries: Mild atheromatous disease. Heart/other: The heart is slightly enlarged. Lymph nodes: No mediastinal or hilar adenopathy. LUNGS: No pulmonary masses. Moderate bilateral pleural effusion with adjacent atelectasis versus pneumonia. Minimal groundglass appearance seen in the right upper lobe. Nodule is seen in the right upper lobe m easuring 5 mm. Nodule in the middle lobe is also noted measuring 5 mm. Nodule in the left upper lobe measuring 6 mm.. No pneumothorax. VISUALIZED UPPER ABDOMEN: Highly suggestive cholelithiasis. Minimal fluid around the liver. Otherwise , the visualized upper abdomen is normal. MUSCULOSKELETAL: Soft tissues: The superficial soft tissues are normal. Bones: Age appropriate degenerative changes of the spine. Possibility of ankylosing spondylitis canno t be excluded. Vertebroplasty seen in L1 IMPRESSION: 1. No pulmonary embolism. 2. Bilateral moderate pleural effusion with atelectasis versus pneumonia. 3. Multiple nodules seen bilaterally which measures 5 mm. 6 months follow-up CT scan is advised. 4. Highly suggestive cholelithiasis. 5. Minimal fluid around the liver. Reviewed, dictated and finalized at location A. T PSYCHOLOGIST IMPRESSION: 1. No pulmonary embolism. 2. Bilateral moderate pleural effusion with atelectasis versus pneumonia. 3. Multiple nodules seen bilaterally which measures 5 mm. 6 months follow-up C T scan is advised. 4. Highly suggestive cholelithiasis. 5. Minimal fluid around the liver.
--- NOTE | ~2024-06-03 | CT_ITS ---
EXAMINATION: CT brain wo con DATE: 06/04/2024 07:04 INDICATION: Garbled speech TECHNIQUE: Computed tomography (CT) of the head was performed without intravenous contrast. The mA wa s adjusted according to patient size. Iterative reconstruction technique was employed. Exam dose: 68 1.00 mGy-cm total exam DLP. COMPARISON: None FINDINGS: There are bilateral vertebral artery and carotid siphon internal carotid artery calcificati ons. There is nonspecific diminished attenuation of the cerebral white matter, likely due to chronic small vessel ischemic changes. No intracranial mass lesion or hemorrhage or cerebrovascular accident is detected. No subdural or epidural hematoma. Bilateral hyperostosis frontalis interna, not likely of any clinical significance. No skull fracture or bone destruction is detected. The paranasal sinuses and mastoid air cells are normally developed and aerated. IMPRESSION: Cerebral atherosclerosis No acute intracranial finding Reviewed, dictated and finalized at Location A. Reviewed, dictated and finalized at location A.
--- NOTE | ~2024-06-03 | US_ITS ---
EXAMINATION: US soft tissue chest DATE: 06/10/2024 15:06 INDICATION: assess pleural effusion . TECHNIQUE: Grayscale and Doppler ultrasound images of the chest were obtained. COMPARISON: None. FINDINGS: Sonographic evaluation of the chest reveal bilateral pleural fluid collections, larger on t he right chest. Bibasilar atelectasis/consolidation. IMPRESSION: Bilateral pleural effusions, right greater than left. Bibasilar atelectasis/consolidation. Reviewed, dictated and finalized at location K. RMAN AND CEO IMPRESSION: Bilateral pleural effusions, right greater than left. Bibasilar atelectasis/con solidation.
--- NOTE | ~2024-06-03 | XR_ITS ---
EXAMINATION: XR lumbar puncture diagnostic DATE: 06/06/2024 13:25 INDICATION: Encephalitis. TECHNIQUE: The procedure including the risks, benefits, and alternatives was discussed with the patie nt. Risks discussed included spinal headache, cerebrospinal fluid leak, bleeding, and infection. The patient understood the risks and agreed to proceed. A timeout was performed to verify the patient' s name, date of , and procedure to be performed. The skin overlying the L4-L5 level was prepped and draped in usual sterile fashion. Subcutaneous 1% lidocaine was used for local anesthesia. A 20 gauge spinal needle was advanced under fluoroscopic guidance. The needle was removed and the entry s ite was cleaned and dressed. There were no immediate complications. Fluoroscopy exposure time was 0. 1 minutes. The total number of images was 1. FINDINGS: Real-time fluoroscopy demonstrates the needle at the L4-L5 level. The opening pressure was 18 cm water (Normal range is variably defined as 6-20 cm water and up to 25 cm water in obese patient s. Pressure >25 cm water is one of the modified Dandy criteria for idiopathic intracranial hypertensi on). 14 mL of clear, colorless fluid was collected in 4 tubes. IMPRESSION: 1. Successful fluoro-guided lumbar puncture. Reviewed, dictated and finalized at location A. ING MACHINE OPERATOR
--- NOTE | ~2024-06-03 | US_ITS ---
EXAMINATION: US venous doppler [facility] DATE: 06/05/2024 16:08 INDICATION: Positive d-dimer TECHNIQUE: Grayscale ultrasound images without and with compression and Doppler ultrasound images of the bilateral lower extremity veins were obtained. Examination is markedly limited secondary to patie nt's body habitus. COMPARISON: 01/30/2020 FINDINGS: The visualized portions of right common femoral vein, profunda (deep) femoral vein, femoral vein, pop liteal vein, and greater saphenous vein outflow are patent. The visualized portions of left common femoral vein, profunda femoral vein, femoral vein, popliteal v ein and greater saphenous vein outflow are patent. IMPRESSION: 1. No deep venous thrombosis within the bilateral lower extremities to the level of the popliteal ve ins bilaterally. Reviewed, dictated and finalized at location A. T BAKER IMPRESSION: 1. No deep venous thrombosis within the bilateral lower extremities to the lev el of the popliteal veins bilaterally.
--- NOTE | 2024-06-03 14:18 | ECG_ITS ---
Test Date: 2024-06-03 14:21:27 Measurements Intervals [place] Rate: 123 P: 0 MS: 0 QRS: -9 QRSD: 104 T: 75 QT: 295 QTc: 424 Interpretive Statements ATRIAL FIBRILLATION WITH RAPID VENTRICULAR RESPONSE LOW QRS VOLTAGE IN EXTREMITY LEADS [QRS DEFLECTION < 0.5 mV IN LIMB LEADS] ANTERIOR MYOCARDIAL INFARCTION , OF INDETERMINATE AGE [40+ ms Q WAVE AND/OR ST/T ABNORMALITY IN V3/V4] Compared to ECG 04/30/2024 13:42:34 Low QRS voltage now present Left-axis deviation no longer present Myocardial infarct finding still present Electronically Signed On 06-06-2024 15:06:29 QUALITY PROCESS LEAD by Randell Huston M.D.
--- NOTE | 2024-06-03 14:19 | PC.NURSE ---
Pt. dropped off in ER [facility] by staff of Dr. Montalvo on RA. When pt. called to be triaged, 02 saturation 71% on RA, lips cyanotic. Pt. immediately brought back to an ED room, and pt. placed on a non-rebreather. RT notified.
[2024-06-03] MEDS: IPRATROPIUM 0.5 MG/ALBUTEROL SULFATE 2.5 MG AMPUL.NEB 3 ML INHALATION (14:25)
--- NOTE | 2024-06-03 14:33 | ED_ITS ---
HPI - SOB/Dyspnea General Chief Complaint: Shortness of Breath/Dyspnea Stated Complaint: from PCP for chest pain Time Seen by Provider: 06/03/24 14:09 Source: patient, RN notes reviewed and other Mode of arrival: wheelchair History of Present Illness HPI Narrative: Patient presented from her new primary care physician's office, Dr Montalvo (her previous PCP Dr Jain retired) today. Notified by nurse practitioner Ana that patient was diagnosed with a pulmonary embolism and pneumonia in April of 2024 and during hospitalization had been diagnosed with atrial fibrillation and was discharged to a care home. She was found today to be saturating at 69% below 70 presents on room air and was feeling unwell, weak, and nauseous. They noted that her heart rate was 120 and was consistent with atrial fibrillation with rapid ventricular response. They advised they would be sending her to the ED. I did ask if she was on oxygen and it was conveyed that she was however she arrived in triage without supplemental O2. Patient states she occasionally experiences chest pain including today. She noticed that her fingernails were purple while in clinic. SHe has not been taking her blood thinners that had been prescribed and also states the other medications that were prescribed don't work and/or interfere with the medicines she had been on that she and Dr Lozano had agreed on over several years. These are: losartan 25 for blood pressure, omeprazole, tramadol, vitamin, and Lipitor. She does not take Lasix. Denies orthopnea. She has had a cough with sputum changing throughout the day, often light in the morning and then changing to cream colored and then brown. Denies pink or bloody. Non smoker. She doesn't sleep at night, tends to sleep instead during the day. She states I know I'm overweight but for the past 3 months I feel like I'm 500 lbs. She states when she was hospitalized previously she was told she had fluid around my heart and lungs. Related Data Home Medications ?Medication ?Instructions ?Recorded ?Confirmed ?Last Taken ?Type omeprazole 40 mg capsule,delayed 40 mg PO DAILY 04/30/24 06/03/24 Unknown History release Allergies Allergy/AdvReac Type Severity Reaction Status Date / Time alendronate sodium Allergy Unknown gastritis Verified 06/03/24 12:57 pravastatin Allergy Unknown unknown Verified 06/03/24 12:57 [facility] Past Medical History Medical History Spondylosis with myelopathy, lumbar region Schatzki's ring Pre-diabetes Opioid dependence with current use Obesity hypoventilation syndrome Morbid obesity due to excess calories Keratolysis exfoliativa Esophageal web Anxiety Chronic kidney disease, stage 3a Diffuse idiopathic skeletal hyperostosis Allergic sinusitis Chronic low back pain Generalized anxiety disorder Gastro-esophageal reflux disease without esophagitis Body mass index (BMI) 40.0-44.9, adult Peripheral vascular disease, unspecified History of tobacco use Surgical History Surgical History History of esophageal dilatation History of meniscectomy of right knee History of vertebroplasty History of colonoscopy with polypectomy Family History Family History Mother Asthma Patient's mother is in good health Sibling Patient's sister is in good health Patient's brother is in good health Other Family history of arthritis Social History Social History Social History: Surrogate medical decision maker: Mami Burns, daughter. Code status: Full code. Smoking packs per day: 2 Smoking cigarettes per day: 40.0 Years smoked: 10 Smoking pack-years: 20.00 Smoking status: Former smoker Second hand tobacco smoke exposure: No Alcohol intake: never Substance use: never Substance use type: does not use Do You Feel Safe in your Home?: Yes Lack of Transportation: No Lack of Food: Never True Current Housing: I Have Housing Concerned About Future Housing: No Difficulty Paying Gas/Electric Bills: No Difficulty Paying for Meds: No Currently Unemployed: YES Education: High School Diploma/GED Difficulty w/ Childcare or Family Care: No Living arrangements: with family Occupation/Education: retired Spiritual care concerns: No Agree to blood products: Yes Exam 2 Narrative: GENERAL: well-nourished, in mild acute distress. HEAD: Normocephalic, atraumatic. EYES: Non injected, non icteric ENT: Nares clear, no rhinorrhea or epistaxis. NECK: Supple. CHEST: Tachypneic but speaking in full sentences. NRB in place. Lungs clear on auscultation but diminished with poor air movement limiting full assessment. HEART: IrRegularly irregular rate and rhythm. . ABDOMEN: Obese but Soft, nondistended. EXTREMITIES: Normal range of motion. 1+ lower extremity edema. SKIN: Warm, dry, no rash. NEURO: No focal deficits. Alert and oriented x3. PSYCH: Normal mood and affect. Course Vital Signs Vital signs: Vital Signs Temperature 97.6 F 06/03/24 14:11 Pulse Rate 127 H 06/03/24 14:11 Respiratory Rate 23 H 06/03/24 14:11 Blood Pressure 139/88 06/03/24 14:11 Pulse Oximetry 98 06/03/24 14:11 Oxygen Delivery Non-Rebreather Mask 06/03/24 14:11 Oxygen Flow Rate 15 06/03/24 14:11 Temperature 97.6 F 06/03/24 14:11 Pulse Rate 116 H 06/03/24 17:45 Respiratory Rate 25 H 06/03/24 17:45 Blood Pressure 108/69 06/03/24 17:45 Pulse Oximetry 95 06/03/24 18:17 Oxygen Delivery Nasal Cannula 06/03/24 18:17 Oxygen Flow Rate 6 06/03/24 18:17 MDM - SOB/Dyspnea MDM Narrative Medical decision making narrative: Patient presents from Dr Montalvo's clinic with shortness of breath. In the emergency department she is afebrile with vital signs notable for tachycardia and tachypnea. She is saturating appropriately on a non-rebreather mask the time vital signs are obtained however had been cyanotic and reportedly saturating in the high 60s and low 70s initially. At the time of my assessment she has a nonrebreather on and her color is appropriate. She is initially in Afib with RVR but with an appropriate BP and, without intervention, becomes better rate controlled Patient has acute heart failure. She is able to be down-titrated to nasal cannula. Lasix ordered. Patient will require admission for further diuresis and given she has new O2 requirement. Discussesd with inventory control assistant hospitalist PAWEL Yousif. Elevated troponin may be secondary to afib RVR/demand ischemia but given patient did have chest pain at some point, will continue to monitor and patient admitted to IMU. Differential Diagnosis Differential diagnosis: Likely congestive heart failure, community acquired pneumonia, pulmonary embolism and other (acute viral syndrome; pulmonary hypertension) Lab Data Attestation: I reviewed the patient's lab results. 06/03/24 15:26 06/03/24 15:26 Labs: Lab Results 06/03/24 06/03/24 06/03/24 Range/Units 15:26 15:26 15:26 WBC 8.0 (4.5-10.0) K/mm3 RBC 4.79 (4.2-5.4) M/mm3 Hgb 14.9 (12.0-15.0) g/dL Hct 47.8 H (37.0-47.0) % MCV 99.8 (80-100) fl MCH 31.1 (26-34) pg MCHC 31.2 L (32-36) g/dl RDW 15.0 H (11.5-14.5) % Plt Count 229 (150-375) k/mm3 MPV 11.4 H (7.4-10.4) fl Immature Gran % (Auto) 0.6 H (0-0.5) % Neut % (Auto) 78.9 H (45.5-73.1) % Lymph % (Auto) 12.9 L (18.3-44.2) % [place] % (Auto) 7.4 (2.6-8.5) % Eos % (Auto) 0.1 (0-4.4) % Baso % (Auto) 0.1 L (0.2-1.2) % Lymph # (Auto) 1.03 (0.9-3.2) K/mm3 [place] # (Auto) 0.6 (0.1-0.6) K/mm3 Eos # (Auto) 0.0 (0-0.3) K/mm3 Baso # (Auto) 0.0 (0.0-0.1) K/mm3 Abs Immat Gran (auto) 0.05 H (0.00-0.031) K/mm3 Absolute Neuts (auto) 6.3 (1.3-6.7) K/mm3 Absolute Nucleated RBC 0.020 H (0.0-0.012) K/mm3 Nucleated RBC % 0.3 H (0.0-0.2) % D-Dimer 7.70 H (<0.48) ug/mL Sodium Cancelled 133 L Potassium Cancelled 4.4 Chloride Cancelled Carbon Dioxide Anion Gap BUN Creatinine Estim Creat Clear Calc Estimated GFR Glucose Calcium Total Bilirubin AST ALT Alkaline Phosphatase Troponin I (0.000-0.034) ng/mL NT-Pro-B Natriuret Pep Total Protein Albumin Influenza A (RT-PCR) (Negative) Influenza B (RT-PCR) (Negative) RSV (RT-PCR) (Negative) SARS-CoV-2 RNA (RT-PCR) (Negative) 06/03/24 06/03/24 06/03/24 Range/Units 15:26 15:26 15:26 WBC (4.5-10.0) K/mm3 RBC (4.2-5.4) M/mm3 Hgb (12.0-15.0) g/dL Hct (37.0-47.0) % MCV (80-100) fl MCH (26-34) pg MCHC (32-36) g/dl RDW (11.5-14.5) % Plt Count (150-375) k/mm3 MPV (7.4-10.4) fl Immature Gran % (Auto) (0-0.5) % Neut % (Auto) (45.5-73.1) % Lymph % (Auto) (18.3-44.2) % [place] % (Auto) (2.6-8.5) % Eos % (Auto) (0-4.4) % Baso % (Auto) (0.2-1.2) % Lymph # (Auto) (0.9-3.2) K/mm3 [place] # (Auto) (0.1-0.6) K/mm3 Eos # (Auto) (0-0.3) K/mm3 Baso # (Auto) (0.0-0.1) K/mm3 Abs Immat Gran (auto) (0.00-0.031) K/mm3 Absolute Neuts (auto) (1.3-6.7) K/mm3 Absolute Nucleated RBC (0.0-0.012) K/mm3 Nucleated RBC % (0.0-0.2) % D-Dimer (<0.48) ug/mL Sodium Potassium Chloride 93 L Carbon Dioxide Cancelled 36 H Anion Gap Cancelled 4 BUN Cancelled Creatinine Estim Creat Clear Calc Estimated GFR Glucose Calcium Total Bilirubin AST ALT Alkaline Phosphatase Troponin I (0.000-0.034) ng/mL NT-Pro-B Natriuret Pep Total Protein Albumin Influenza A (RT-PCR) (Negative) Influenza B (RT-PCR) (Negative) RSV (RT-PCR) (Negative) SARS-CoV-2 RNA (RT-PCR) (Negative) 06/03/24 06/03/24 06/03/24 Range/Units 15:26 15:26 15:26 WBC (4.5-10.0) K/mm3 RBC (4.2-5.4) M/mm3 Hgb (12.0-15.0) g/dL Hct (37.0-47.0) % MCV (80-100) fl MCH (26-34) pg MCHC (32-36) g/dl RDW (11.5-14.5) % Plt Count (150-375) k/mm3 MPV (7.4-10.4) fl Immature Gran % (Auto) (0-0.5) % Neut % (Auto) (45.5-73.1) % Lymph % (Auto) (18.3-44.2) % [place] % (Auto) (2.6-8.5) % Eos % (Auto) (0-4.4) % Baso % (Auto) (0.2-1.2) % Lymph # (Auto) (0.9-3.2) K/mm3 [place] # (Auto) (0.1-0.6) K/mm3 Eos # (Auto) (0-0.3) K/mm3 Baso # (Auto) (0.0-0.1) K/mm3 Abs Immat Gran (auto) (0.00-0.031) K/mm3 Absolute Neuts (auto) (1.3-6.7) K/mm3 Absolute Nucleated RBC (0.0-0.012) K/mm3 Nucleated RBC % (0.0-0.2) % D-Dimer (<0.48) ug/mL Sodium Potassium Chloride Carbon Dioxide Anion Gap BUN 49 H D Creatinine Cancelled 2.40 H Estim Creat Clear Calc Cancelled 20 Estimated GFR Cancelled Glucose Calcium Total Bilirubin AST ALT Alkaline Phosphatase Troponin I (0.000-0.034) ng/mL NT-Pro-B Natriuret Pep Total Protein Albumin Influenza A (RT-PCR) (Negative) Influenza B (RT-PCR) (Negative) RSV (RT-PCR) (Negative) SARS-CoV-2 RNA (RT-PCR) (Negative) 06/03/24 06/03/24 06/03/24 Range/Units 15:26 15:26 15:26 WBC (4.5-10.0) K/mm3 RBC (4.2-5.4) M/mm3 Hgb (12.0-15.0) g/dL Hct (37.0-47.0) % MCV (80-100) fl MCH (26-34) pg MCHC (32-36) g/dl RDW (11.5-14.5) % Plt Count (150-375) k/mm3 MPV (7.4-10.4) fl Immature Gran % (Auto) (0-0.5) % Neut % (Auto) (45.5-73.1) % Lymph % (Auto) (18.3-44.2) % [place] % (Auto) (2.6-8.5) % Eos % (Auto) (0-4.4) % Baso % (Auto) (0.2-1.2) % Lymph # (Auto) (0.9-3.2) K/mm3 [place] # (Auto) (0.1-0.6) K/mm3 Eos # (Auto) (0-0.3) K/mm3 Baso # (Auto) (0.0-0.1) K/mm3 Abs Immat Gran (auto) (0.00-0.031) K/mm3 Absolute Neuts (auto) (1.3-6.7) K/mm3 Absolute Nucleated RBC (0.0-0.012) K/mm3 Nucleated RBC % (0.0-0.2) % D-Dimer (<0.48) ug/mL Sodium Potassium Chloride Carbon Dioxide Anion Gap BUN Creatinine Estim Creat Clear Calc Estimated GFR 19 L Glucose Cancelled 122 H Calcium Cancelled 10.3 H Total Bilirubin Cancelled AST ALT Alkaline Phosphatase Troponin I (0.000-0.034) ng/mL NT-Pro-B Natriuret Pep Total Protein Albumin Influenza A (RT-PCR) (Negative) Influenza B (RT-PCR) (Negative) RSV (RT-PCR) (Negative) SARS-CoV-2 RNA (RT-PCR) (Negative) 06/03/24 06/03/24 06/03/24 Range/Units 15:26 15:26 15:26 WBC (4.5-10.0) K/mm3 RBC (4.2-5.4) M/mm3 Hgb (12.0-15.0) g/dL Hct (37.0-47.0) % MCV (80-100) fl MCH (26-34) pg MCHC (32-36) g/dl RDW (11.5-14.5) % Plt Count (150-375) k/mm3 MPV (7.4-10.4) fl Immature Gran % (Auto) (0-0.5) % Neut % (Auto) (45.5-73.1) % Lymph % (Auto) (18.3-44.2) % [place] % (Auto) (2.6-8.5) % Eos % (Auto) (0-4.4) % Baso % (Auto) (0.2-1.2) % Lymph # (Auto) (0.9-3.2) K/mm3 [place] # (Auto) (0.1-0.6) K/mm3 Eos # (Auto) (0-0.3) K/mm3 Baso # (Auto) (0.0-0.1) K/mm3 Abs Immat Gran (auto) (0.00-0.031) K/mm3 Absolute Neuts (auto) (1.3-6.7) K/mm3 Absolute Nucleated RBC (0.0-0.012) K/mm3 Nucleated RBC % (0.0-0.2) % D-Dimer (<0.48) ug/mL Sodium Potassium Chloride Carbon Dioxide Anion Gap BUN Creatinine Estim Creat Clear Calc Estimated GFR Glucose Calcium Total Bilirubin 0.9 AST Cancelled 157 H ALT Cancelled 102 H Alkaline Phosphatase Cancelled Troponin I (0.000-0.034) ng/mL NT-Pro-B Natriuret Pep Total Protein Albumin Influenza A (RT-PCR) (Negative) Influenza B (RT-PCR) (Negative) RSV (RT-PCR) (Negative) SARS-CoV-2 RNA (RT-PCR) (Negative) 06/03/24 06/03/24 06/03/24 Range/Units 15:26 15:26 15:26 WBC (4.5-10.0) K/mm3 RBC (4.2-5.4) M/mm3 Hgb (12.0-15.0) g/dL Hct (37.0-47.0) % MCV (80-100) fl MCH (26-34) pg MCHC (32-36) g/dl RDW (11.5-14.5) % Plt Count (150-375) k/mm3 MPV (7.4-10.4) fl Immature Gran % (Auto) (0-0.5) % Neut % (Auto) (45.5-73.1) % Lymph % (Auto) (18.3-44.2) % [place] % (Auto) (2.6-8.5) % Eos % (Auto) (0-4.4) % Baso % (Auto) (0.2-1.2) % Lymph # (Auto) (0.9-3.2) K/mm3 [place] # (Auto) (0.1-0.6) K/mm3 Eos # (Auto) (0-0.3) K/mm3 Baso # (Auto) (0.0-0.1) K/mm3 Abs Immat Gran (auto) (0.00-0.031) K/mm3 Absolute Neuts (auto) (1.3-6.7) K/mm3 Absolute Nucleated RBC (0.0-0.012) K/mm3 Nucleated RBC % (0.0-0.2) % D-Dimer (<0.48) ug/mL Sodium Potassium Chloride Carbon Dioxide Anion Gap BUN Creatinine Estim Creat Clear Calc Estimated GFR Glucose Calcium Total Bilirubin AST ALT Alkaline Phosphatase 153 H Troponin I 0.684 H* (0.000-0.034) ng/mL NT-Pro-B Natriuret Pep Cancelled 59695 H Total Protein Cancelled 7.0 Albumin Cancelled Influenza A (RT-PCR) (Negative) Influenza B (RT-PCR) (Negative) RSV (RT-PCR) (Negative) SARS-CoV-2 RNA (RT-PCR) (Negative) 06/03/24 Range/Units 15:26 WBC (4.5-10.0) K/mm3 RBC (4.2-5.4) M/mm3 Hgb (12.0-15.0) g/dL Hct (37.0-47.0) % MCV (80-100) fl MCH (26-34) pg MCHC (32-36) g/dl RDW (11.5-14.5) % Plt Count (150-375) k/mm3 MPV (7.4-10.4) fl Immature Gran % (Auto) (0-0.5) % Neut % (Auto) (45.5-73.1) % Lymph % (Auto) (18.3-44.2) % [place] % (Auto) (2.6-8.5) % Eos % (Auto) (0-4.4) % Baso % (Auto) (0.2-1.2) % Lymph # (Auto) (0.9-3.2) K/mm3 [place] # (Auto) (0.1-0.6) K/mm3 Eos # (Auto) (0-0.3) K/mm3 Baso # (Auto) (0.0-0.1) K/mm3 Abs Immat Gran (auto) (0.00-0.031) K/mm3 Absolute Neuts (auto) (1.3-6.7) K/mm3 Absolute Nucleated RBC (0.0-0.012) K/mm3 Nucleated RBC % (0.0-0.2) % D-Dimer (<0.48) ug/mL Sodium Potassium Chloride Carbon Dioxide Anion Gap BUN Creatinine Estim Creat Clear Calc Estimated GFR Glucose Calcium Total Bilirubin AST ALT Alkaline Phosphatase Troponin I (0.000-0.034) ng/mL NT-Pro-B Natriuret Pep Total Protein Albumin 4.1 Influenza A (RT-PCR) Negative (Negative) Influenza B (RT-PCR) Negative (Negative) RSV (RT-PCR) Negative (Negative) SARS-CoV-2 RNA (RT-PCR) Negative (Negative) ABG Data ABG results: 06/03/24 14:40 Puncture Site Right radial ABG pH 7.327 L ABG pCO2 59.2 H ABG pO2 137.0 H ABG PO2/FiO2 Ratio 1.37 ABG HCO3 30.3 H ABG O2 Saturation 98.5 ABG O2 Content 20.9 ABG Base Excess 2.6 A-a Gradient 516.8 Oxyhemoglobin 97.0 Total Hemoglobin 15.2 O2 Delivery Device Non-rebreather mask O2 Liters/Min 10.0 FiO2 100 Attestation: I personally reviewed and interpreted this ABG as follows: Interpretation: primary respiratory acidosis chronic Imaging Data Attestation: I personally reviewed and interpreted this imaging study as follows: My impression: Bilateral pulmonary infiltrates concerning for pulmonary edema Radiologist's impression: Impressions Chest X-Ray 06/03/24 14:55 IMPRESSION: 1. Worsened airspace in the mid and lower lung zones, consistent with atelectasis versus pneumonia. 2. Small pleural effusions. 3. Cardiomegaly. Chest CTA 06/03/24 17:13 IMPRESSION: 1. No pulmonary embolism. 2. Bilateral moderate pleural effusion with atelectasis versus pneumonia. 3. Multiple nodules seen bilaterally which measures 5 mm. 6 months follow-up CT scan is advised. 4. Highly suggestive cholelithiasis. 5. Minimal fluid around the liver. ECG Data EKG #1: Attestation: I personally reviewed and interpreted this ECG as follows: ECG completion date: 06/03/24 ECG completion time: 14:21 Interpretation: Atrial fibrillation and 23 beats per minute reflective of rapid ventricular response. QRS 104. QT/QTC 295/368. Poor R-wave progression across the precordial leads. No T-wave inversions. Discharge Plan Discharge Clinical Impression: Atrial fibrillation with rapid ventricular response, Hypoxia, Requires supplemental oxygen, Cardiomegaly, Pleural effusion, Acute heart failure, Non-ST elevation PA (NSTEMI), Pulmonary nodule, Cholelithiasis Patient Disposition: Still a Patient Condition: Serious
[2024-06-03 14:46] LABS: Alveolar/Arterial O2 Gradient 516.8 mmHg; Base Excess ABG 2.6 mEq/l (+/-2.0); Fractional Inspired Oxygen 100 %; HCO3 ABG 30.3 mEq/l (22.0-26.0); Oxygen Content ABG 20.9 %vol (16.0-22.0); Oxygen Saturation ABG 98.5 % (95.0-100.0); PCO2 ABG 59.2 mmHg (35.0-45.0); PO2 FiO2 Ratio Arterial Blood 1.37 %; Total Hemoglobin 15.2 g/dL (12.0-18.0); pH ABG 7.327 (7.350-7.450)
[2024-06-03 14:47] LABS: Device NON-REBREATHER MASK; Modified Allen's Test Pass; Site Drawn RIGHT RADIAL
[2024-06-03 15:37] LABS: Basophils Percent Auto 0.1 % (0.2-1.2); Eosinophils Percent Auto 0.1 % (0-4.4); Hematocrit 47.8 % (37.0-47.0); Hemoglobin 14.9 g/dL (12.0-15.0); Immature Granulocyte Absolute 0.05 K/mm3 (0.00-0.031); Immature Granulocyte Percent A 0.6 % (0-0.5); Lymphocytes Absolute Auto 1.03 K/mm3 (0.9-3.2); Lymphocytes Percent Auto 12.9 % (18.3-44.2); Mean Corpuscular HGB Conc 31.2 g/dl (32-36); Mean Corpuscular Hemoglobin 31.1 pg (26-34); Mean Corpuscular Volume 99.8 fl (80-100); Mean Platelet Volume 11.4 fl (7.4-10.4); Monocytes Absolute Auto 0.6 K/mm3 (0.1-0.6); Monocytes Percent Auto 7.4 % (2.6-8.5); Neutrophils Absolute Auto 6.3 K/mm3 (1.3-6.7); Neutrophils Percent Auto 78.9 % (45.5-73.1); Nucleated Red Blood Cells Perc 0.3 % (0.0-0.2); Platelet Count Result 229 k/mm3 (150-375); Red Blood Count 4.79 M/mm3 (4.2-5.4)
[2024-06-03 15:49] LABS: Alanine Aminotransferase 102 U/L (6-35); Albumin Level 4.1 g/dL (3.5-5.1); Alkaline Phosphatase 153 U/L (38-126); Anion Gap 4 mmol/L (4-12); Aspartate Amino Transferase 157 U/L (14-36); Bilirubin,Total 0.9 mg/dL (0.2-1.3); Blood Urea Nitrogen 49 mg/dL (7-17); Calcium 10.3 mg/dL (8.4-10.2); Carbon Dioxide 36 mmol/L (22-30); Chloride 93 mmol/L (98-107); Estimated CRCL calculation 20 ml/min; Estimated Glomerular Filt Rate 19; Glucose 122 mg/dL (65-110); Potassium 4.4 mmol/L (3.4-5.0); Sodium 133 mmol/L (137-145)
[2024-06-03 16:04] LABS: NT Pro B Type Natriuretic Pept 29800 pg/mL (19.9-100); Troponin I 0.684 ng/mL (0.000-0.034)
[2024-06-03 16:10] LABS: Influenza A QL RT-PCR Negative (Negative); Influenza B QL RT-PCR Negative (Negative); RSV RNA, RT-PCR Negative (Negative); SARS-CoV-2 RNA PCR Negative (Negative)
[2024-06-03] MEDS: FUROSEMIDE INJ 40 MG/4 ML VIAL IV PUSH (18:08)
--- NOTE | 2024-06-03 18:20 | P.HP_ITS ---
H&P: HPI History of Present Illness Date/Time: 06/03/24 20:00 Chief Complaint: Shortness of breath. Narrative: This is an 84-year-old female with heart failure with preserved ejection fraction, pulmonary embolism, paroxysmal atrial fibrillation, diastolic dysfunction, morbid obesity, chronic kidney disease, hypertension, hyperlipidemia, gastroesophageal reflux disease, overactive bladder, and anxiety who presented to the emergency department via private vehicle for evaluation of shortness of breath. The patient provides the following history. She was admitted to the hospital in early May with hypoxia, pneumonia, pulmonary embolism, and new onset atrial fibrillation. She was discharged to rehab thereafter and she has been home for a couple of weeks. She has been doing okay but she never bounced back to baseline and continues to have decreased exercise tolerance. She is had problems refilling her medications since discharge from rehab and was told by her insurance company that they would not refill her tramadol or clonazepam for another couple of weeks and she reports having increasing pain and anxiety. Today she had a follow-up appointment with her primary care provider and she was referred to the emergency department after she was found to be hypoxic and in rapid atrial fibrillation. With further questioning she endorses chronic dyspnea on minimal exertion admits to being quite sedentary. She has occasional discomfort in her lower chest like a ?pulling or aching? which seems to be related to shortness of breath. She also endorses orthopnea and significant lower extremity edema. She denies fever, chills, sweats, sinus congestion, sore throat, productive cough, palpitations, pleuritic pain, nausea, vomiting, diarrhea, dysuria, and calf pain. In the ED: She was in rapid atrial fibrillation with rates in the 120s and an SpO2 was in the low 70s on room air on arrival. Blood pressures have been stable. ABG showed a pH of 7.327, pCO2 59.2, PO2 137.0, HC03 30.3, A-a gradient 516.8. Chest x-ray showed worsened airspace opacities in the mid and lower lung zones consistent with atelectasis versus pneumonia and small pleural effusions with cardiomegaly. She was given furosemide 40 mg IV and aspirin 324 mg and she is being admitted in this setting for further treatment and Cardiology consultation. Review of Systems Review of Systems: 12 systems were reviewed and are negativ e except for as per HPI. [facility] Past Medical History Medical History Spondylosis with myelopathy, lumbar region Schatzki's ring Pre-diabetes Opioid dependence with current use Obesity hypoventilation syndrome Morbid obesity due to excess calories Keratolysis exfoliativa Esophageal web Anxiety Chronic kidney disease, stage 3a Diffuse idiopathic skeletal hyperostosis Allergic sinusitis Chronic low back pain Generalized anxiety disorder Gastro-esophageal reflux disease without esophagitis Body mass index (BMI) 40.0-44.9, adult Peripheral vascular disease, unspecified History of tobacco use Surgical History Surgical History History of esophageal dilatation History of meniscectomy of right knee History of vertebroplasty History of colonoscopy with polypectomy Family History Family History Mother Asthma Patient's mother is in good health Sibling Patient's sister is in good health Patient's brother is in good health Other Family history of arthritis Social History Social History Social History: Surrogate medical decision maker: Mami Burns, daughter. Code status: Full code. Smoking packs per day: 2 Smoking cigarettes per day: 40.0 Years smoked: 10 Smoking pack-years: 20.00 Smoking status: Former smoker Second hand tobacco smoke exposure: No Alcohol intake: never Substance use: never Substance use type: does not use Do You Feel Safe in your Home?: Yes Lack of Transportation: No Lack of Food: Never True Current Housing: I Have Housing Concerned About Future Housing: No Difficulty Paying Gas/Electric Bills: No Difficulty Paying for Meds: No Currently Unemployed: YES Education: High School Diploma/GED Difficulty w/ Childcare or Family Care: No Living arrangements: with family Occupation/Education: retired Spiritual care concerns: No Agree to blood products: Yes Meds Home Medications and Allergies Home Medications ?Medication ?Instructions ?Recorded ?Confirmed ?Type loratadine 10 mg capsule 10 mg PO DAILY #100 caps 02/24/24 06/03/24 Rx losartan 25 mg tablet 25 mg PO DAILY #90 tabs 04/13/24 06/03/24 Rx omeprazole 40 mg capsule,delayed 40 mg PO DAILY 04/30/24 06/03/24 History release apixaban 5 mg tablet (Eliquis) 5 mg PO Q12HR #30 tabs 05/04/24 06/03/24 Rx apixaban 5 mg tablet (Eliquis) 10 mg (2 x 5 mg) PO Q12HR #10 tabs 05/04/24 06/03/24 Rx clonazepam 0.5 mg tablet 0.5 mg PO DAILY PRN panic 05/04/24 06/03/24 Rx attack(s) #10 tabs doxycycline hyclate 100 mg tablet 100 mg PO Q12HR #1 tablet 05/04/24 06/03/24 Rx furosemide 20 mg tablet (Lasix) 20 mg PO DAILY #10 tabs 05/04/24 06/03/24 Rx metoprolol tartrate 50 mg tablet 50 mg PO Q12HR #30 tabs 05/04/24 06/03/24 Rx tramadol 50 mg tablet 50 mg PO DAILY #10 tabs 05/04/24 06/03/24 Rx atorvastatin 10 mg tablet 10 mg PO DAILY #90 tabs 05/30/24 06/03/24 Rx Allergies Allergy/AdvReac Type Severity Reaction Status Date / Time alendronate sodium Allergy Unknown gastritis Verified 06/03/24 12:57 pravastatin Allergy Unknown unknown Verified 06/03/24 12:57 Vital Signs Vital Signs - 24 hr 06/03/24 14:11 06/03/24 14:25 06/03/24 14:35 Temperature 97.6 F Pulse Rate 127 H 122 H 118 H Respiratory Rate 23 H 20 20 Blood Pressure 139/88 Pulse Oximetry 98 Oxygen Delivery Non-Rebreather Mask Oxygen Flow Rate 15 06/03/24 14:35 06/03/24 16:16 06/03/24 17:45 Temperature Pulse Rate 110 H 116 H Respiratory Rate 17 25 H Blood Pressure 125/73 108/69 Pulse Oximetry 97 97 93 Oxygen Delivery Non-Rebreather Mask Oxygen Flow Rate 15 06/03/24 18:17 Temperature Pulse Rate Respiratory Rate Blood Pressure Pulse Oximetry 95 Oxygen Delivery Nasal Cannula Oxygen Flow Rate 6 Exam Narrative: General: Well-developed, moderately ill-appearing female sitting up in bed. Weight: 126.9 kg. BMI: 51.2. HEENT: PERRL, EOMI. Sclera anicteric. Moist mucous membranes. Oropharynx is crowded. Neck: Supple. Exam limited due to neck circumference. No obvious jugular venous distention. Respiratory: Currently on 6 L nasal cannula. She gets short of breath when trying to adjust herself in bed. Lung sounds are diminished at the bases with scattered crackles. Cardiovascular: Irregularly irregular rate and rhythm. Telemetry shows rapid atrial fibrillation with rates in the 120s. Gastrointestinal: Abdomen is soft, morbidly obese, nontender, and nondistended with positive bowel sounds. Skin: Warm and dry. Heavily callused feet. Extremities: No cyanosis or clubbing. Legs are large with trace pitting edema. No palpable knots or cords. Peripheral pulses intact. Neurological: Alert. Cranial nerves 2-12 are grossly intact. No gross focal deficits to casual conversation. Psychiatric: Cooperative with appropriate mood. A bit anxious. H&P: Results Labs Labs: Short CBC 06/03/24 Range/Units 15:26 WBC 8.0 (4.5-10.0) K/mm3 Hgb 14.9 (12.0-15.0) g/dL Hct 47.8 H (37.0-47.0) % Plt Count 229 (150-375) k/mm3 BMP 06/03/24 06/03/24 06/03/24 15:26 15:26 15:26 Sodium Cancelled 133 L Potassium Cancelled 4.4 Chloride Cancelled Carbon Dioxide BUN Creatinine Glucose Calcium 06/03/24 06/03/24 06/03/24 15:26 15:26 15:26 Sodium Potassium Chloride 93 L Carbon Dioxide Cancelled 36 H BUN Cancelled 49 H D Creatinine Cancelled Glucose Calcium 06/03/24 06/03/24 06/03/24 15:26 15:26 15:26 Sodium Potassium Chloride Carbon Dioxide BUN Creatinine 2.40 H Glucose Cancelled 122 H Calcium Cancelled 10.3 H Cardiac Enzymes 06/03/24 Range/Units 15:26 Troponin I 0.684 H* (0.000-0.034) ng/mL Liver Function 06/03/24 06/03/24 06/03/24 Range/Units 15:26 15:26 15:26 Total Bilirubin Cancelled 0.9 AST Cancelled 157 H ALT Cancelled Alkaline Phosphatase Albumin 06/03/24 06/03/24 06/03/24 Range/Units 15:26 15:26 15:26 Total Bilirubin AST ALT 102 H Alkaline Phosphatase Cancelled 153 H Albumin Cancelled 4.1 Impressions Chest X-Ray 06/03/24 14:55 IMPRESSION: 1. Worsened airspace in the mid and lower lung zones, consistent with atelectasis versus pneumonia. 2. Small pleural effusions. 3. Cardiomegaly. Chest CTA 06/03/24 17:13 IMPRESSION: 1. No pulmonary embolism. 2. Bilateral moderate pleural effusion with atelectasis versus pneumonia. 3. Multiple nodules seen bilaterally which measures 5 mm. 6 months follow-up CT scan is advised. 4. Highly suggestive cholelithiasis. 5. Minimal fluid around the liver. Assessment and Plan Assessment and plan (1) Acute respiratory failure with hypoxia: Code(s): J96.01 - Acute respiratory failure with hypoxia Status: Acute (2) Atrial fibrillation with rapid ventricular response: Code(s): I48.91 - Unspecified atrial fibrillation Status: Acute (3) Acute exacerbation of congestive heart failure: Code(s): I50.9 - Heart failure, unspecified Status: Acute (4) Non-ST elevation [place] (NSTEMI): Code(s): I21.4 - Non-ST elevation (NSTEMI) myocardial infarction Status: Acute (5) Acute on chronic kidney failure: Code(s): N17.9 - Acute kidney failure, unspecified; N18.9 - Chronic kidney disease, unspecified Status: Acute (6) Transaminitis: Code(s): R74.01 - Elevation of levels of liver transaminase levels Status: Acute Plan The patient presented to the emergency department for evaluation after she was found to be hypoxic at her doctor's office today as detailed in HPI. Labs, imaging, EKG, and all reports were personally reviewed. Chest CTA was negative for pulmonary embolism but did show bilateral pleural effusions which is likely the cause of her hypoxia. She will need a home oxygen study prior to discharge. She is in rapid atrial fibrillation which may be contributing to high output failure; it is impossible to say how long she has been in rapid AFib as she does not have any palpitations or sensations of racing heart. Continue metoprolol for rate control. She will be diuresed with close monitoring of volume status, renal function, and electrolytes. Troponin is elevated, likely due to the rapid heart rate in CHF, but will be trended to peak. Limited echo ordered. Cardiology has been consulted for their recommendations. Her creatinine is higher than baseline, likely prerenal due to heart failure, and will be monitor closely while diuresing. AST and ALT are elevated which could be related to passive congestion as her abdominal exam is benign. Check CK. Blood pressures were reviewed and they are stable. Her medications will be reviewed and resumed as appropriate. Findings and treatment plan were discussed with the patient. Questions were solicited and answered to satisfaction. The patient's medical management will be taken over by the hospitalist team in a.m. Quality VTE Prophylaxis VTE prophylaxis: pharmacologic ordered (on apixaban) Hospitalist [facility] Advance Care Plan I have confirmed that the patient's Advanced Care Plan is present, code status is documented, or surrogate decision maker is listed in patient medical record.: Yes Medication Reconciliation I have utilized all available resources to obtain, update and review the patients current medications (includes all prescriptions, OTC, herbals, cannabis, and nutritional supplements).: Yes
--- NOTE | 2024-06-03 18:24 | ECG_ITS ---
Test Date: 2024-06-03 18:38:07 Measurements Intervals [place] Rate: 114 P: 0 FL: 0 QRS: -29 QRSD: 105 T: 111 QT: 318 QTc: 440 Interpretive Statements ATRIAL FIBRILLATION WITH RAPID VENTRICULAR RESPONSE LOW QRS VOLTAGE IN EXTREMITY LEADS [QRS DEFLECTION < 0.5 mV IN LIMB LEADS] ANTEROSEPTAL MYOCARDIAL INFARCTION , OF INDETERMINATE AGE [40+ ms Q WAVE IN V1-V4] Compared to ECG 06/03/2024 14:21:27 No significant changes Electronically Signed On 06-07-2024 17:48:09 PERFORMANCE SPECIALIST by Jonny Snider M.D.
[2024-06-03] MEDS: ASPIRIN 81 MG CHEWABLE TABLET 324 MG PO (18:29)
--- NOTE | 2024-06-03 19:00 | PC.NURSE ---
External catheter placed on patient per request.
[2024-06-03 19:27] LABS: Troponin I 0.603 ng/mL (0.000-0.034)
--- NOTE | 2024-06-03 21:10 | PC.NURSE ---
RN gave patient food
[2024-06-03] MEDS: METOPROLOL TARTRATE 50 MG TAB PO (23:58)
[2024-06-03] MEDS: APIXABAN 5 MG TABLET PO (23:59)
[2024-06-04] VITALS (16 sets, daily range): BP systolic 102–125; BP diastolic 57–82; PULSE 93–122; RESP 18–20; TEMP 36.3–36.7; O2SAT 91–100; BMI 50.7
--- NOTE | 2024-06-04 | ECHO_ITS ---
Patient Info Name: Klaudia Larry Age: 84 years : 1940 Gender: Female Ht: 62 in Wt: 277 lbs BSA: 2.43 m2 HR: 115 bpm BP: 125 / 66 mmHg Heart Rhythm: Atrial Fibrillation Technical Quality: Poor Exam Date: 06/04/2024 12:06 PM Exam Location: Echo Lab Patient Status: Inpatient Admit Date: 06/03/2024 Staff Ordering Physician: Maricel Priest PA-C [employer] Professor: Esau Falk RDCS Attending Provider: Brennan Osborne MD Referring Physician: Cem DAWSON; Exam Type: CA echo limited w contrast Study Info Indications - AFIB - ELEVATED TROPONIN Limited two-dimensional transthoracic echocardiogram is performed with contrast. Contrast/Agitated Saline Contrast/Ag. Saline: Definity Amount: 2.00 ml Existing IV Access: Yes Reason for Poor Study: poor echocardiographic windows Summary 1. Grossly normal LV size and systolic function. There is flattening of IVseptum c/w RV Pressure Volume overload. 2. Severely enlarged RV with preserved RV function. 3. Mod-severe TR and severe PHTN. 4. Severe PHTN. 5. No pericardial effusion. 6. The transthoracic echocardiogram is normal by two-dimensional, color flow imaging, and Doppler interrogation. 7. Technically difficult study with limited views. Left Ventricle Flattening of the septum in diastole and systole consistent with right ventricular volume and pressure overload. Left ventricular chamber dimension is normal. Left ventricular systolic function is normal, estimated at 55-60%. There is no increased left ventricular wall thickness. Right Ventricle Right ventricular chamber dimension is severely enlarged. Right ventricular systolic function is normal. Left Atria Left atrial chamber dimension is normal. Right Atria Right atrial chamber dimension is moderately enlarged. Aortic Valve The aortic valve is probable trileaflet. There is no aortic valve regurgitation. Pulmonic Valve The pulmonic valve is not well visualized. There is no pulmonic regurgitation. Mitral Valve The mitral valve has normal leaflets. There is trace mitral valve regurgitation. There is mild mitral valve calcification. The mitral valve annulus is mildly calcified. Tricuspid Valve The tricuspid valve leaflets are normal. There is moderate to severe tricuspid valve regurgitation. Severe pulmonary hypertension, estimated pulmonary arterial systolic pressure is 65 mmHg. Pericardium/Pleural The pericardium appears normal. There is no pericardial effusion. Aorta The aortic root size at the sinus of Valsalva is not well visualized. Tricuspid Valve Name Value Normal TV Regurgitation Doppler TR Peak Velocity 352 cm/s TR Peak Gradient 50 mmHg Estimated PAP/RSVP RA Pressure 15 mmHg <=5 PA Systolic Pressure 65 mmHg <36 RV Systolic Pressure 65 mmHg <36 Ventricles Name Value Normal LV Dimensions 2D/MM IVS Diastolic Thickness (2D) 1.0 cm 0.6-1.0 LVID Diastole (2D) 3.8 cm 3.8-5.2 LVIW Diastolic Thickness (2D) 1.5 cm 0.6-0.9 LVID Systole (2D) 2.2 cm 2.2-3.5 LV Mass (2D Cubed) 163.46 g 67.00-162.00 LV Mass Index (2D Cubed) 67 g/m2 43-95 Relative Wall Thickness (2D) 0.78 LV Fractional Shortening/Ejection Fraction 2D/MM LV Fractional Shortening (2D) 41 % 27-45 LV EF (2D Teicholz) 73 % 54-74 Report Signatures
[2024-06-04 05:17] LABS: Basophils Percent Auto 0.1 % (0.2-1.2); Eosinophils Absolute Auto 0.1 K/mm3 (0-0.3); Eosinophils Percent Auto 0.7 % (0-4.4); Hemoglobin 13.8 g/dL (12.0-15.0); Immature Granulocyte Absolute 0.06 K/mm3 (0.00-0.031); Immature Granulocyte Percent A 0.6 % (0-0.5); Lymphocytes Absolute Auto 1.46 K/mm3 (0.9-3.2); Lymphocytes Percent Auto 15.6 % (18.3-44.2); Mean Corpuscular HGB Conc 31.4 g/dl (32-36); Mean Corpuscular Hemoglobin 31.4 pg (26-34); Mean Platelet Volume 11.1 fl (7.4-10.4); Monocytes Absolute Auto 0.9 K/mm3 (0.1-0.6); Monocytes Percent Auto 9.7 % (2.6-8.5); Neutrophils Absolute Auto 6.9 K/mm3 (1.3-6.7); Neutrophils Percent Auto 73.3 % (45.5-73.1); Platelet Count Result 171 k/mm3 (150-375); Red Cell Distribution Width 14.7 % (11.5-14.5); White Blood Count 9.4 K/mm3 (4.5-10.0)
[2024-06-04 05:39] LABS: Alanine Aminotransferase 108 U/L (6-35); Albumin Level 3.7 g/dL (3.5-5.1); Alkaline Phosphatase 130 U/L (38-126); Anion Gap 2 mmol/L (4-12); Aspartate Amino Transferase 159 U/L (14-36); Bilirubin,Total 0.8 mg/dL (0.2-1.3); Blood Urea Nitrogen 50 mg/dL (7-17); Carbon Dioxide 37 mmol/L (22-30); Chloride 92 mmol/L (98-107); Creatine Kinase 330 U/L (30-135); Estimated CRCL calculation 22 ml/min; Estimated Glomerular Filt Rate 21; Glucose 81 mg/dL (65-110); Magnesium 2.3 mg/dL (1.6-2.3); Potassium 4.9 mmol/L (3.4-5.0); Sodium 131 mmol/L (137-145)
[2024-06-04 06:20] LABS: Glucose Point of Care 95 mg/dl (65-105)
--- NOTE | 2024-06-04 06:31 | ADMGEN ---
This patient, Klaudia Larry, was admitted to IMU Room 212-01. Patient/family oriented to hospital policies and general routines including ID bracelet, bed and alarms, visiting hours, pain management, procedures, bathroom and other care routines, personal items, smoking policy, room service/diet, and visiting hours. Information on how to activate the Rapid Response Team has been discussed. Patient/Family are encouraged to report perceived risks to care and to ask questions if they do not understand what they are told or what they should do.
--- NOTE | 2024-06-04 07:37 | P.PNIM_ITS ---
Progress Note: A&P Assessment and Plan (1) Acute respiratory failure with hypoxia: Code(s): J96.01 - Acute respiratory failure with hypoxia Status: Acute (2) Atrial fibrillation with rapid ventricular response: Code(s): I48.91 - Unspecified atrial fibrillation Status: Acute (3) Acute exacerbation of congestive heart failure: Code(s): I50.9 - Heart failure, unspecified Status: Acute (4) Non-ST elevation SD (NSTEMI): Code(s): I21.4 - Non-ST elevation (NSTEMI) myocardial infarction Status: Acute (5) Acute on chronic kidney failure: Code(s): N17.9 - Acute kidney failure, unspecified; N18.9 - Chronic kidney disease, unspecified Status: Acute (6) Transaminitis: Code(s): R74.01 - Elevation of levels of liver transaminase levels Status: Acute Plan The patient presented to the emergency department for evaluation after she was found to be hypoxic at her doctor's office today as detailed in HPI. Labs, imaging, EKG, and all reports were personally reviewed. Chest CTA was negative for pulmonary embolism but did show bilateral pleural effusions which is likely the cause of her hypoxia. She will need a home oxygen study prior to discharge. She is in rapid atrial fibrillation which may be contributing to high output failure; it is impossible to say how long she has been in rapid AFib as she does not have any palpitations or sensations of racing heart. Continue metoprolol for rate control. She will be diuresed with close monitoring of volume status, renal function, and electrolytes. Troponin is elevated, likely due to the rapid heart rate in CHF, but will be trended to peak. Limited echo ordered. Cardiology has been consulted for their recommendations. Her creatinine is higher than baseline, likely prerenal due to heart failure, and will be monitor closely while diuresing. AST and ALT are elevated which could be related to passive congestion as her abdominal exam is benign. Check CK. Blood pressures were reviewed and they are stable. Her medications will be reviewed and resumed as appropriate. Findings and treatment plan were discussed with the patient. Subjective Date/time seen: 06/04/24 07:37 Interval history: Patient admitted for shortness of breast. Patient was previously admitted in early May with hypoxia, pneumonia, pulmonary embolism and new onset of AFib. She has been discharged to rehab thereafter she has been in the home for couple of weeks. She had problems in refilling her medication including tramadol/clonazepam. Yesterday she went to primary care provider and found to be hypoxic and rapid atrial fibrillation. She was referred to ED. I believe possibly she is readmitted due to medication noncompliance. Currently patient d isease furosemide 20 mg IV b.i.d., metoprolol 50 mg p.o. b.i.d., apixaban 5 mg p.o. b.i.d.. Pending Cardiology evaluation. Review of Systems Review of Systems: 12 systems were reviewed and are negativ e except for as per HPI. Exam Narrative: General: Well-developed, moderately ill-appearing female sitting up in bed. Weight: 126.9 kg. BMI: 51.2. HEENT: PERRL, EOMI. Sclera anicteric. Moist mucous membranes. Oropharynx is crowded. Neck: Supple. Exam limited due to neck circumference. No obvious jugular venous distention. Respiratory: Currently on 6 L nasal cannula. She gets short of breath when trying to adjust herself in bed. Lung sounds are diminished at the bases with scattered crackles. Cardiovascular: Irregularly irregular rate and rhythm. Telemetry shows rapid atrial fibrillation with rates in the 120s. Gastrointestinal: Abdomen is soft, morbidly obese, nontender, and nondistended with positive bowel sounds. Skin: Warm and dry. Heavily callused feet. Extremities: No cyanosis or clubbing. Legs are large with trace pitting edema. No palpable knots or cords. Peripheral pulses intact. Neurological: Alert. Cranial nerves 2-12 are grossly intact. No gross focal deficits to casual conversation. Psychiatric: Cooperative with appropriate mood. A bit anxious. Objective Data Vital Signs Vital Signs: Vital Signs - 24 hr 06/03/24 14:11 06/03/24 14:25 06/03/24 14:35 Temperature 97.6 F Pulse Rate 127 H 122 H 118 H Respiratory Rate 23 H 20 20 Blood Pressure 139/88 Pulse Oximetry 98 Oxygen Delivery Non-Rebreather Mask Oxygen Flow Rate 15 06/03/24 14:35 06/03/24 16:16 06/03/24 17:45 Temperature Pulse Rate 110 H 116 H Respiratory Rate 17 25 H Blood Pressure 125/73 108/69 Pulse Oximetry 97 97 93 Oxygen Delivery Non-Rebreather Mask Oxygen Flow Rate 15 06/03/24 18:17 06/03/24 23:58 06/04/24 03:21 Temperature Pulse Rate 119 H 105 H Respiratory Rate 18 Blood Pressure 102/57 L Pulse Oximetry 95 100 Oxygen Delivery Nasal Cannula Oxygen Flow Rate 6 Intake/Output Intake/Output: Intake & Output 06/01/24 06/02/24 06/03/24 06/04/24 23:59 23:59 23:59 23:59 Intake Total 300 Balance 300 Meds/Results Medications: Active Medications Generic Name Dose Route Start Last Admin Trade Name Freq PRN Reason Stop Dose Admin Acetaminophen 650 mg 06/03/24 18:29 Acetaminophen 325 Mg Tablet PO Q4H PRN Mild Pain (1-3) or Fever Apixaban 5 mg 06/03/24 23:40 06/03/24 23:59 Apixaban 5 Mg Tablet PO 5 mg Q12HR BEVERLY Administration Clonazepam 0.5 mg 06/03/24 23:37 Clonazepam (*Crx) 0.5 Mg Tablet PO Q12H PRN Anxiety Furosemide 20 mg 06/04/24 09:00 Furosemide Inj 40 Mg/4 Ml Vial IV PUSH BID BEVERLY Metoprolol Tartrate 50 mg 06/03/24 23:40 06/03/24 23:58 Metoprolol Tartrate 50 Mg Tab PO 50 mg Q12HR BEVERLY Administration Ondansetron HCl 4 mg 06/03/24 18:29 Ondansetron Inj 4 Mg/2 Ml Vial IV PUSH Q4H PRN Nausea Perflutren Lipid Microsphere 0 ml 06/03/24 19:07 Perflutren Lipid Microspheres 1.5 Ml Vial Diluted To 10 Ml Total Volume IV PUSH 06/06/24 19:08 ONCE PRN adequate visualization Protocol Tramadol HCl 25 mg 06/03/24 23:36 Tramadol Hcl (*Crx) 25 Mg Tablet PO Q6H PRN Pain Rated 4-6 Radiology Results: ITS Impressions Chest X-Ray 06/03/24 14:55 IMPRESSION: 1. Worsened airspace in the mid and lower lung zones, consistent with atelectasis versus pneumonia. 2. Small pleural effusions. 3. Cardiomegaly. Chest CTA 06/03/24 17:13 IMPRESSION: 1. No pulmonary embolism. 2. Bilateral moderate pleural effusion with atelectasis versus pneumonia. 3. Multiple nodules seen bilaterally which measures 5 mm. 6 months follow-up CT scan is advised. 4. Highly suggestive cholelithiasis. 5. Minimal fluid around the liver. Labs Labs: Laboratory Results - last 24 hr 06/03/24 06/03/24 06/03/24 14:40 15:26 15:26 WBC 8.0 RBC 4.79 Hgb 14.9 Hct 47.8 H MCV 99.8 MCH 31.1 MCHC 31.2 L RDW 15.0 H Plt Count 229 MPV 11.4 H Immature Gran % (Auto) 0.6 H Neut % (Auto) 78.9 H Lymph % (Auto) 12.9 L [place] % (Auto) 7.4 Eos % (Auto) 0.1 Baso % (Auto) 0.1 L Lymph # (Auto) 1.03 [place] # (Auto) 0.6 Eos # (Auto) 0.0 Baso # (Auto) 0.0 Abs Immat Gran (auto) 0.05 H Absolute Neuts (auto) 6.3 Absolute Nucleated RBC 0.020 H Nucleated RBC % 0.3 H D-Dimer 7.70 H Puncture Site Right radial ABG pH 7.327 L ABG pCO2 59.2 H ABG pO2 137.0 H ABG PO2/FiO2 Ratio 1.37 ABG HCO3 30.3 H ABG O2 Saturation 98.5 ABG O2 Content 20.9 ABG Base Excess 2.6 A-a Gradient 516.8 Oxyhemoglobin 97.0 Total Hemoglobin 15.2 O2 Delivery Device Non-rebreather mask O2 Liters/Min 10.0 FiO2 100 Sodium Cancelled 133 L Potassium Cancelled Chloride Carbon Dioxide Anion Gap BUN Creatinine Estim Creat Clear Calc Estimated GFR Glucose POC Capillary Glucose Calcium Magnesium Total Bilirubin AST ALT Alkaline Phosphatase Total Creatine Kinase Troponin I NT-Pro-B Natriuret Pep Total Protein Albumin Influenza A (RT-PCR) Influenza B (RT-PCR) RSV (RT-PCR) SARS-CoV-2 RNA (RT-PCR) 06/03/24 06/03/24 06/03/24 15:26 15:26 15:26 WBC RBC Hgb Hct MCV MCH MCHC RDW Plt Count MPV Immature Gran % (Auto) Neut % (Auto) Lymph % (Auto) [place] % (Auto) Eos % (Auto) Baso % (Auto) Lymph # (Auto) [place] # (Auto) Eos # (Auto) Baso # (Auto) Abs Immat Gran (auto) Absolute Neuts (auto) Absolute Nucleated RBC Nucleated RBC % D-Dimer Puncture Site ABG pH ABG pCO2 ABG pO2 ABG PO2/FiO2 Ratio ABG HCO3 ABG O2 Saturation ABG O2 Content ABG Base Excess A-a Gradient Oxyhemoglobin Total Hemoglobin O2 Delivery Device O2 Liters/Min FiO2 Sodium Potassium 4.4 Chloride Cancelled 93 L Carbon Dioxide Cancelled 36 H Anion Gap Cancelled BUN Creatinine Estim Creat Clear Calc Estimated GFR Glucose POC Capillary Glucose Calcium Magnesium Total Bilirubin AST ALT Alkaline Phosphatase Total Creatine Kinase Troponin I NT-Pro-B Natriuret Pep Total Protein Albumin Influenza A (RT-PCR) Influenza B (RT-PCR) RSV (RT-PCR) SARS-CoV-2 RNA (RT-PCR) 06/03/24 06/03/24 06/03/24 15:26 15:26 15:26 WBC RBC Hgb Hct MCV MCH MCHC RDW Plt Count MPV Immature Gran % (Auto) Neut % (Auto) Lymph % (Auto) [place] % (Auto) Eos % (Auto) Baso % (Auto) Lymph # (Auto) [place] # (Auto) Eos # (Auto) Baso # (Auto) Abs Immat Gran (auto) Absolute Neuts (auto) Absolute Nucleated RBC Nucleated RBC % D-Dimer Puncture Site ABG pH ABG pCO2 ABG pO2 ABG PO2/FiO2 Ratio ABG HCO3 ABG O2 Saturation ABG O2 Content ABG Base Excess A-a Gradient Oxyhemoglobin Total Hemoglobin O2 Delivery Device O2 Liters/Min FiO2 Sodium Potassium Chloride Carbon Dioxide Anion Gap 4 BUN Cancelled 49 H D Creatinine Cancelled 2.40 H Estim Creat Clear Calc Cancelled Estimated GFR Glucose POC Capillary Glucose Calcium Magnesium Total Bilirubin AST ALT Alkaline Phosphatase Total Creatine Kinase Troponin I NT-Pro-B Natriuret Pep Total Protein Albumin Influenza A (RT-PCR) Influenza B (RT-PCR) RSV (RT-PCR) SARS-CoV-2 RNA (RT-PCR) 06/03/24 06/03/24 06/03/24 15:26 15:26 15:26 WBC RBC Hgb Hct MCV MCH MCHC RDW Plt Count MPV Immature Gran % (Auto) Neut % (Auto) Lymph % (Auto) [place] % (Auto) Eos % (Auto) Baso % (Auto) Lymph # (Auto) [place] # (Auto) Eos # (Auto) Baso # (Auto) Abs Immat Gran (auto) Absolute Neuts (auto) Absolute Nucleated RBC Nucleated RBC % D-Dimer Puncture Site ABG pH ABG pCO2 ABG pO2 ABG PO2/FiO2 Ratio ABG HCO3 ABG O2 Saturation ABG O2 Content ABG Base Excess A-a Gradient Oxyhemoglobin Total Hemoglobin O2 Delivery Device O2 Liters/Min FiO2 Sodium Potassium Chloride Carbon Dioxide Anion Gap BUN Creatinine Estim Creat Clear Calc 20 Estimated GFR Cancelled 19 L Glucose Cancelled 122 H POC Capillary Glucose Calcium Cancelled Magnesium Total Bilirubin AST ALT Alkaline Phosphatase Total Creatine Kinase Troponin I NT-Pro-B Natriuret Pep Total Protein Albumin Influenza A (RT-PCR) Influenza B (RT-PCR) RSV (RT-PCR) SARS-CoV-2 RNA (RT-PCR) 06/03/24 06/03/24 06/03/24 15:26 15:26 15:26 WBC RBC Hgb Hct MCV MCH MCHC RDW Plt Count MPV Immature Gran % (Auto) Neut % (Auto) Lymph % (Auto) [place] % (Auto) Eos % (Auto) Baso % (Auto) Lymph # (Auto) [place] # (Auto) Eos # (Auto) Baso # (Auto) Abs Immat Gran (auto) Absolute Neuts (auto) Absolute Nucleated RBC Nucleated RBC % D-Dimer Puncture Site ABG pH ABG pCO2 ABG pO2 ABG PO2/FiO2 Ratio ABG HCO3 ABG O2 Saturation ABG O2 Content ABG Base Excess A-a Gradient Oxyhemoglobin Total Hemoglobin O2 Delivery Device O2 Liters/Min FiO2 Sodium Potassium Chloride Carbon Dioxide Anion Gap BUN Creatinine Estim Creat Clear Calc Estimated GFR Glucose POC Capillary Glucose Calcium 10.3 H Magnesium Total Bilirubin Cancelled 0.9 AST Cancelled 157 H ALT Cancelled Alkaline Phosphatase Total Creatine Kinase Troponin I NT-Pro-B Natriuret Pep Total Protein Albumin Influenza A (RT-PCR) Influenza B (RT-PCR) RSV (RT-PCR) SARS-CoV-2 RNA (RT-PCR) 06/03/24 06/03/24 06/03/24 15:26 15:26 15:26 WBC RBC Hgb Hct MCV MCH MCHC RDW Plt Count MPV Immature Gran % (Auto) Neut % (Auto) Lymph % (Auto) [place] % (Auto) Eos % (Auto) Baso % (Auto) Lymph # (Auto) [place] # (Auto) Eos # (Auto) Baso # (Auto) Abs Immat Gran (auto) Absolute Neuts (auto) Absolute Nucleated RBC Nucleated RBC % D-Dimer Puncture Site ABG pH ABG pCO2 ABG pO2 ABG PO2/FiO2 Ratio ABG HCO3 ABG O2 Saturation ABG O2 Content ABG Base Excess A-a Gradient Oxyhemoglobin Total Hemoglobin O2 Delivery Device O2 Liters/Min FiO2 Sodium Potassium Chloride Carbon Dioxide Anion Gap BUN Creatinine Estim Creat Clear Calc Estimated GFR Glucose POC Capillary Glucose Calcium Magnesium Total Bilirubin AST ALT 102 H Alkaline Phosphatase Cancelled 153 H Total Creatine Kinase Troponin I 0.684 H* NT-Pro-B Natriuret Pep Cancelled 49582 H Total Protein Cancelled Albumin Influenza A (RT-PCR) Influenza B (RT-PCR) RSV (RT-PCR) SARS-CoV-2 RNA (RT-PCR) 06/03/24 06/03/24 06/03/24 15:26 15:26 18:45 WBC RBC Hgb Hct MCV MCH MCHC RDW Plt Count MPV Immature Gran % (Auto) Neut % (Auto) Lymph % (Auto) [place] % (Auto) Eos % (Auto) Baso % (Auto) Lymph # (Auto) [place] # (Auto) Eos # (Auto) Baso # (Auto) Abs Immat Gran (auto) Absolute Neuts (auto) Absolute Nucleated RBC Nucleated RBC % D-Dimer Puncture Site ABG pH ABG pCO2 ABG pO2 ABG PO2/FiO2 Ratio ABG HCO3 ABG O2 Saturation ABG O2 Content ABG Base Excess A-a Gradient Oxyhemoglobin Total Hemoglobin O2 Delivery Device O2 Liters/Min FiO2 Sodium Potassium Chloride Carbon Dioxide Anion Gap BUN Creatinine Estim Creat Clear Calc Estimated GFR Glucose POC Capillary Glucose Calcium Magnesium Total Bilirubin AST ALT Alkaline Phosphatase Total Creatine Kinase Troponin I 0.603 H* NT-Pro-B Natriuret Pep Total Protein 7.0 Albumin Cancelled 4.1 Influenza A (RT-PCR) Negative Influenza B (RT-PCR) Negative RSV (RT-PCR) Negative SARS-CoV-2 RNA (RT-PCR) Negative 06/04/24 06/04/24 05:07 06:16 WBC 9.4 RBC 4.40 Hgb 13.8 Hct 44.0 MCV 100.0 MCH 31.4 MCHC 31.4 L RDW 14.7 H Plt Count 171 MPV 11.1 H Immature Gran % (Auto) 0.6 H Neut % (Auto) 73.3 H Lymph % (Auto) 15.6 L [place] % (Auto) 9.7 H Eos % (Auto) 0.7 Baso % (Auto) 0.1 L Lymph # (Auto) 1.46 [place] # (Auto) 0.9 H Eos # (Auto) 0.1 Baso # (Auto) 0.0 Abs Immat Gran (auto) 0.06 H Absolute Neuts (auto) 6.9 H Absolute Nucleated RBC 0.000 Nucleated RBC % 0.0 D-Dimer Puncture Site ABG pH ABG pCO2 ABG pO2 ABG PO2/FiO2 Ratio ABG HCO3 ABG O2 Saturation ABG O2 Content ABG Base Excess A-a Gradient Oxyhemoglobin Total Hemoglobin O2 Delivery Device O2 Liters/Min FiO2 Sodium 131 L Potassium 4.9 Chloride 92 L Carbon Dioxide 37 H Anion Gap 2 L BUN 50 H Creatinine 2.20 H Estim Creat Clear Calc 22 Estimated GFR 21 L Glucose 81 POC Capillary Glucose 95 Calcium 10.0 Magnesium 2.3 Total Bilirubin 0.8 AST 159 H ALT 108 H Alkaline Phosphatase 130 H Total Creatine Kinase 330 H Troponin I 0.580 H* NT-Pro-B Natriuret Pep Total Protein 7.0 Albumin 3.7 Influenza A (RT-PCR) Influenza B (RT-PCR) RSV (RT-PCR) SARS-CoV-2 RNA (RT-PCR) Quality VTE Prophylaxis VTE prophylaxis: pharmacologic ordered (on apixaban)
--- NOTE | 2024-06-04 08:43 | P.PNIM_ITS ---
Progress Note: A&P Assessment and Plan (1) Acute respiratory failure with hypoxia: Code(s): J96.01 - Acute respiratory failure with hypoxia Status: Acute Assessment and Plan: * Likely due to acute on chronic congestive heart failure associated with atrial fibrillation and rapid ventricular rate * Continue diuresis (2) Atrial fibrillation with rapid ventricular response: Code(s): I48.91 - Unspecified atrial fibrillation Status: Acute Assessment and Plan: * Likely exacerbated by medication non adherence * Continue beta-amalia (3) Acute alteration in mental status: Code(s): R41.82 - Altered mental status, unspecified Status: Acute Assessment and Plan: * No focal findings on exam except perseveration * This appears to be acute delirium * This is likely due to drug withdrawal as symptoms began at home with shakes and personality change and a feeling of her veins coursing (per phone conversation with daughter on 06/04/2024). * 06/04/2024 MRI brain pending, CT brain negative * 06/04/2024 daughter in agreement with detox from opioids and benzodiazepines and avoiding these as long-term therapy (4) Acute exacerbation of congestive heart failure: Code(s): I50.9 - Heart failure, unspecified Status: Acute Assessment and Plan: * Likely due to medication non adherence and atrial fibrillation with rapid ventricular rate * Continue diuresis and resumed home regimen (5) Non-ST elevation [place] (NSTEMI): Code(s): I21.4 - Non-ST elevation (NSTEMI) myocardial infarction Status: Acute Assessment and Plan: * Likely type 2 demand infarcts secondary to rapid atrial fibrillation (6) Acute on chronic kidney failure: Code(s): N17.9 - Acute kidney failure, unspecified; N18.9 - Chronic kidney disease, unspecified Status: Acute Assessment and Plan: * Likely secondary to acute congestive heart failure, hypoxia, medication non adherence (7) Transaminitis: Code(s): R74.01 - Elevation of levels of liver transaminase levels Status: Acute Assessment and Plan: * Likely secondary to congestion caused by congestive heart failure Subjective Date/time seen: 06/04/24 08:43 Interval history: Admitted for shortness of breath 1/3. Found to have persistent pleural effusions and lower lobe atelectasis. Has been having issues with taking medicines appropriately. Has not been taking Eliquis. Ran out of tramadol and clonazepam. Very sedentary. Unable to care for herself. Was oriented at 5:00 a.m.. Nursing assessment at 6:00 a.m. found her to be confused and perseverating. No focal deficits noted. Speech was clear but with perseveration. Review of Systems Review of Systems: ROS unobtainable: Yes unobtainable due to medical condition Exam Narrative: General: Well-developed, moderately ill-appearing female who is anxious and somewhat agitated. HEENT: PERRL, EOMI. Sclera anicteric. Moist mucous membranes. Oropharynx is crowded. Neck: Supple. Exam limited due to neck circumference. No obvious jugular venous distention. No obvious thyromegaly or mass. Respiratory: Currently on 6 L nasal cannula. Mildly tachypneic. Diminished breath sounds in lower lobes. Cardiovascular: Irregularly irregular rate and rhythm. Distant S1 and S2. No audible murmur. Telemetry shows rapid atrial fibrillation with rates in the 100's. Gastrointestinal: Abdomen is soft, morbidly obese, nontender, and nondistended with positive bowel sounds. No palpable masses. Skin: Warm and dry. Heavily callused feet. Extremities: No cyanosis or clubbing. Legs are large with no pitting edema. Peripheral pulses intact. Neurological: Alert. Cranial nerves 2-12 are grossly intact. No gross focal deficits to casual conversation. DTRs are diminished throughout. Babinski's downgoing. Speech is clear but not coherent. Tone and strength symmetric but diffusely diminished. Psychiatric: Cooperative. Oriented to person only. Anxious. Restless. Said that I looked good and red but I was wearing blue. No perseveration noted at this time. Objective Data Vital Signs Vital Signs: Vital Signs - 24 hr 06/03/24 14:11 06/03/24 14:25 06/03/24 14:35 Temperature 97.6 F Pulse Rate 127 H 122 H 118 H Respiratory Rate 23 H 20 20 Blood Pressure 139/88 Pulse Oximetry 98 Oxygen Delivery Non-Rebreather Mask Oxygen Flow Rate 15 06/03/24 14:35 06/03/24 16:16 06/03/24 17:45 Temperature Pulse Rate 110 H 116 H Respiratory Rate 17 25 H Blood Pressure 125/73 108/69 Pulse Oximetry 97 97 93 Oxygen Delivery Non-Rebreather Mask Oxygen Flow Rate 15 06/03/24 18:17 06/03/24 23:58 06/04/24 03:21 Temperature Pulse Rate 119 H 105 H Respiratory Rate 18 Blood Pressure 102/57 L Pulse Oximetry 95 100 Oxygen Delivery Nasal Cannula Oxygen Flow Rate 6 06/04/24 04:07 06/04/24 06:00 06/04/24 08:00 Temperature 98.1 F Pulse Rate 112 H 122 H 115 H Respiratory Rate 20 Blood Pressure 125/66 Pulse Oximetry 98 Oxygen Delivery Oxygen Flow Rate Intake/Output Intake/Output: Intake & Output 06/01/24 06/02/24 06/03/24 06/04/24 23:59 23:59 23:59 23:59 Intake Total 300 Balance 300 Meds/Results Medications: Active Medications Generic Name Dose Route Start Last Admin Trade Name Freq PRN Reason Stop Dose Admin Acetaminophen 650 mg 06/03/24 18:29 Acetaminophen 325 Mg Tablet PO Q4H PRN Mild Pain (1-3) or Fever Apixaban 5 mg 06/03/24 23:40 06/03/24 23:59 Apixaban 5 Mg Tablet PO 5 mg Q12HR BEVERLY Administration Clonazepam 0.5 mg 06/03/24 23:37 Clonazepam (*Crx) 0.5 Mg Tablet PO Q12H PRN Anxiety Furosemide 20 mg 06/04/24 09:00 Furosemide Inj 40 Mg/4 Ml Vial IV PUSH BID BEVERLY Metoprolol Tartrate 50 mg 06/03/24 23:40 06/03/24 23:58 Metoprolol Tartrate 50 Mg Tab PO 50 mg Q12HR BEVERLY Administration Ondansetron HCl 4 mg 06/03/24 18:29 Ondansetron Inj 4 Mg/2 Ml Vial IV PUSH Q4H PRN Nausea Perflutren Lipid Microsphere 0 ml 06/03/24 19:07 Perflutren Lipid Microspheres 1.5 Ml Vial Diluted To 10 Ml Total Volume IV PUSH 06/06/24 19:08 ONCE PRN adequate visualization Protocol Tramadol HCl 25 mg 06/03/24 23:36 Tramadol Hcl (*Crx) 25 Mg Tablet PO Q6H PRN Pain Rated 4-6 Radiology Results: ITS Impressions Chest X-Ray 06/03/24 14:55 IMPRESSION: 1. Worsened airspace in the mid and lower lung zones, consistent with atelectasis versus pneumonia. 2. Small pleural effusions. 3. Cardiomegaly. Chest CTA 06/03/24 17:13 IMPRESSION: 1. No pulmonary embolism. 2. Bilateral moderate pleural effusion with atelectasis versus pneumonia. 3. Multiple nodules seen bilaterally which measures 5 mm. 6 months follow-up CT scan is advised. 4. Highly suggestive cholelithiasis. 5. Minimal fluid around the liver. Head CT 06/04/24 07:53 IMPRESSION: Cerebral atherosclerosis No acute intracranial finding Labs Labs: Laboratory Results - last 24 hr 06/03/24 06/03/24 06/03/24 14:40 15:26 15:26 WBC 8.0 RBC 4.79 Hgb 14.9 Hct 47.8 H MCV 99.8 MCH 31.1 MCHC 31.2 L RDW 15.0 H Plt Count 229 MPV 11.4 H Immature Gran % (Auto) 0.6 H Neut % (Auto) 78.9 H Lymph % (Auto) 12.9 L [place] % (Auto) 7.4 Eos % (Auto) 0.1 Baso % (Auto) 0.1 L Lymph # (Auto) 1.03 [place] # (Auto) 0.6 Eos # (Auto) 0.0 Baso # (Auto) 0.0 Abs Immat Gran (auto) 0.05 H Absolute Neuts (auto) 6.3 Absolute Nucleated RBC 0.020 H Nucleated RBC % 0.3 H D-Dimer 7.70 H Puncture Site Right radial ABG pH 7.327 L ABG pCO2 59.2 H ABG pO2 137.0 H ABG PO2/FiO2 Ratio 1.37 ABG HCO3 30.3 H ABG O2 Saturation 98.5 ABG O2 Content 20.9 ABG Base Excess 2.6 A-a Gradient 516.8 Oxyhemoglobin 97.0 Total Hemoglobin 15.2 O2 Delivery Device Non-rebreather mask O2 Liters/Min 10.0 FiO2 100 Sodium Cancelled 133 L Potassium Cancelled Chloride Carbon Dioxide Anion Gap BUN Creatinine Estim Creat Clear Calc Estimated GFR Glucose POC Capillary Glucose Calcium Magnesium Total Bilirubin AST ALT Alkaline Phosphatase Total Creatine Kinase Troponin I NT-Pro-B Natriuret Pep Total Protein Albumin Influenza A (RT-PCR) Influenza B (RT-PCR) RSV (RT-PCR) SARS-CoV-2 RNA (RT-PCR) 06/03/24 06/03/24 06/03/24 15:26 15:26 15:26 WBC RBC Hgb Hct MCV MCH MCHC RDW Plt Count MPV Immature Gran % (Auto) Neut % (Auto) Lymph % (Auto) [place] % (Auto) Eos % (Auto) Baso % (Auto) Lymph # (Auto) [place] # (Auto) Eos # (Auto) Baso # (Auto) Abs Immat Gran (auto) Absolute Neuts (auto) Absolute Nucleated RBC Nucleated RBC % D-Dimer Puncture Site ABG pH ABG pCO2 ABG pO2 ABG PO2/FiO2 Ratio ABG HCO3 ABG O2 Saturation ABG O2 Content ABG Base Excess A-a Gradient Oxyhemoglobin Total Hemoglobin O2 Delivery Device O2 Liters/Min FiO2 Sodium Potassium 4.4 Chloride Cancelled 93 L Carbon Dioxide Cancelled 36 H Anion Gap Cancelled BUN Creatinine Estim Creat Clear Calc Estimated GFR Glucose POC Capillary Glucose Calcium Magnesium Total Bilirubin AST ALT Alkaline Phosphatase Total Creatine Kinase Troponin I NT-Pro-B Natriuret Pep Total Protein Albumin Influenza A (RT-PCR) Influenza B (RT-PCR) RSV (RT-PCR) SARS-CoV-2 RNA (RT-PCR) 06/03/24 06/03/24 06/03/24 15:26 15:26 15:26 WBC RBC Hgb Hct MCV MCH MCHC RDW Plt Count MPV Immature Gran % (Auto) Neut % (Auto) Lymph % (Auto) [place] % (Auto) Eos % (Auto) Baso % (Auto) Lymph # (Auto) [place] # (Auto) Eos # (Auto) Baso # (Auto) Abs Immat Gran (auto) Absolute Neuts (auto) Absolute Nucleated RBC Nucleated RBC % D-Dimer Puncture Site ABG pH ABG pCO2 ABG pO2 ABG PO2/FiO2 Ratio ABG HCO3 ABG O2 Saturation ABG O2 Content ABG Base Excess A-a Gradient Oxyhemoglobin Total Hemoglobin O2 Delivery Device O2 Liters/Min FiO2 Sodium Potassium Chloride Carbon Dioxide Anion Gap 4 BUN Cancelled 49 H D Creatinine Cancelled 2.40 H Estim Creat Clear Calc Cancelled Estimated GFR Glucose POC Capillary Glucose Calcium Magnesium Total Bilirubin AST ALT Alkaline Phosphatase Total Creatine Kinase Troponin I NT-Pro-B Natriuret Pep Total Protein Albumin Influenza A (RT-PCR) Influenza B (RT-PCR) RSV (RT-PCR) SARS-CoV-2 RNA (RT-PCR) 0106/03/24 06/03/24 15:26 15:26 15:26 WBC RBC Hgb Hct MCV MCH MCHC RDW Plt Count MPV Immature Gran % (Auto) Neut % (Auto) Lymph % (Auto) [place] % (Auto) Eos % (Auto) Baso % (Auto) Lymph # (Auto) [place] # (Auto) Eos # (Auto) Baso # (Auto) Abs Immat Gran (auto) Absolute Neuts (auto) Absolute Nucleated RBC Nucleated RBC % D-Dimer Puncture Site ABG pH ABG pCO2 ABG pO2 ABG PO2/FiO2 Ratio ABG HCO3 ABG O2 Saturation ABG O2 Content ABG Base Excess A-a Gradient Oxyhemoglobin Total Hemoglobin O2 Delivery Device O2 Liters/Min FiO2 Sodium Potassium Chloride Carbon Dioxide Anion Gap BUN Creatinine Estim Creat Clear Calc 20 Estimated GFR Cancelled 19 L Glucose Cancelled 122 H POC Capillary Glucose Calcium Cancelled Magnesium Total Bilirubin AST ALT Alkaline Phosphatase Total Creatine Kinase Troponin I NT-Pro-B Natriuret Pep Total Protein Albumin Influenza A (RT-PCR) Influenza B (RT-PCR) RSV (RT-PCR) SARS-CoV-2 RNA (RT-PCR) 06/03/24 06/03/24 06/03/24 15:26 15:26 15:26 WBC RBC Hgb Hct MCV MCH MCHC RDW Plt Count MPV Immature Gran % (Auto) Neut % (Auto) Lymph % (Auto) [place] % (Auto) Eos % (Auto) Baso % (Auto) Lymph # (Auto) [place] # (Auto) Eos # (Auto) Baso # (Auto) Abs Immat Gran (auto) Absolute Neuts (auto) Absolute Nucleated RBC Nucleated RBC % D-Dimer Puncture Site ABG pH ABG pCO2 ABG pO2 ABG PO2/FiO2 Ratio ABG HCO3 ABG O2 Saturation ABG O2 Content ABG Base Excess A-a Gradient Oxyhemoglobin Total Hemoglobin O2 Delivery Device O2 Liters/Min FiO2 Sodium Potassium Chloride Carbon Dioxide Anion Gap BUN Creatinine Estim Creat Clear Calc Estimated GFR Glucose POC Capillary Glucose Calcium 10.3 H Magnesium Total Bilirubin Cancelled 0.9 AST Cancelled 157 H ALT Cancelled Alkaline Phosphatase Total Creatine Kinase Troponin I NT-Pro-B Natriuret Pep Total Protein Albumin Influenza A (RT-PCR) Influenza B (RT-PCR) RSV (RT-PCR) SARS-CoV-2 RNA (RT-PCR) 06/03/24 06/03/24 06/03/24 15:26 15:26 15:26 WBC RBC Hgb Hct MCV MCH MCHC RDW Plt Count MPV Immature Gran % (Auto) Neut % (Auto) Lymph % (Auto) [place] % (Auto) Eos % (Auto) Baso % (Auto) Lymph # (Auto) [place] # (Auto) Eos # (Auto) Baso # (Auto) Abs Immat Gran (auto) Absolute Neuts (auto) Absolute Nucleated RBC Nucleated RBC % D-Dimer Puncture Site ABG pH ABG pCO2 ABG pO2 ABG PO2/FiO2 Ratio ABG HCO3 ABG O2 Saturation ABG O2 Content ABG Base Excess A-a Gradient Oxyhemoglobin Total Hemoglobin O2 Delivery Device O2 Liters/Min FiO2 Sodium Potassium Chloride Carbon Dioxide Anion Gap BUN Creatinine Estim Creat Clear Calc Estimated GFR Glucose POC Capillary Glucose Calcium Magnesium Total Bilirubin AST ALT 102 H Alkaline Phosphatase Cancelled 153 H Total Creatine Kinase Troponin I 0.684 H* NT-Pro-B Natriuret Pep Cancelled 06612 H Total Protein Cancelled Albumin Influenza A (RT-PCR) Influenza B (RT-PCR) RSV (RT-PCR) SARS-CoV-2 RNA (RT-PCR) 06/03/24 06/03/24 06/03/24 15:26 15:26 18:45 WBC RBC Hgb Hct MCV MCH MCHC RDW Plt Count MPV Immature Gran % (Auto) Neut % (Auto) Lymph % (Auto) [place] % (Auto) Eos % (Auto) Baso % (Auto) Lymph # (Auto) [place] # (Auto) Eos # (Auto) Baso # (Auto) Abs Immat Gran (auto) Absolute Neuts (auto) Absolute Nucleated RBC Nucleated RBC % D-Dimer Puncture Site ABG pH ABG pCO2 ABG pO2 ABG PO2/FiO2 Ratio ABG HCO3 ABG O2 Saturation ABG O2 Content ABG Base Excess A-a Gradient Oxyhemoglobin Total Hemoglobin O2 Delivery Device O2 Liters/Min FiO2 Sodium Potassium Chloride Carbon Dioxide Anion Gap BUN Creatinine Estim Creat Clear Calc Estimated GFR Glucose POC Capillary Glucose Calcium Magnesium Total Bilirubin AST ALT Alkaline Phosphatase Total Creatine Kinase Troponin I 0.603 H* NT-Pro-B Natriuret Pep Total Protein 7.0 Albumin Cancelled 4.1 Influenza A (RT-PCR) Negative Influenza B (RT-PCR) Negative RSV (RT-PCR) Negative SARS-CoV-2 RNA (RT-PCR) Negative 06/04/24 06/04/24 05:07 06:16 WBC 9.4 RBC 4.40 Hgb 13.8 Hct 44.0 MCV 100.0 MCH 31.4 MCHC 31.4 L RDW 14.7 H Plt Count 171 MPV 11.1 H Immature Gran % (Auto) 0.6 H Neut % (Auto) 73.3 H Lymph % (Auto) 15.6 L [place] % (Auto) 9.7 H Eos % (Auto) 0.7 Baso % (Auto) 0.1 L Lymph # (Auto) 1.46 [place] # (Auto) 0.9 H Eos # (Auto) 0.1 Baso # (Auto) 0.0 Abs Immat Gran (auto) 0.06 H Absolute Neuts (auto) 6.9 H Absolute Nucleated RBC 0.000 Nucleated RBC % 0.0 D-Dimer Puncture Site ABG pH ABG pCO2 ABG pO2 ABG PO2/FiO2 Ratio ABG HCO3 ABG O2 Saturation ABG O2 Content ABG Base Excess A-a Gradient Oxyhemoglobin Total Hemoglobin O2 Delivery Device O2 Liters/Min FiO2 Sodium 131 L Potassium 4.9 Chloride 92 L Carbon Dioxide 37 H Anion Gap 2 L BUN 50 H Creatinine 2.20 H Estim Creat Clear Calc 22 Estimated GFR 21 L Glucose 81 POC Capillary Glucose 95 Calcium 10.0 Magnesium 2.3 Total Bilirubin 0.8 AST 159 H ALT 108 H Alkaline Phosphatase 130 H Total Creatine Kinase 330 H Troponin I 0.580 H* NT-Pro-B Natriuret Pep Total Protein 7.0 Albumin 3.7 Influenza A (RT-PCR) Influenza B (RT-PCR) RSV (RT-PCR) SARS-CoV-2 RNA (RT-PCR) Hospitalist MIPS Advance Care Plan I have confirmed that the patient's Advanced Care Plan is present, code status is documented, or surrogate decision maker is listed in patient medical record.: Yes
--- NOTE | 2024-06-04 08:52 | P.PNCROSS_ITS ---
Event Note Event Note Event Note: Nursing staff called to notify me around 630 the patient had acute change in me ntal status. She was stating but start things. She was having slurred speech. She was following commands in otherwise neurologic exam seemed to be intact. I went to evaluate the patient she had no pronator drift and she had 3/5 strength bilateral heel lift gouger, she had no obvious facial asymmetry but was not the most cooperative with neurologic exam but which scratch her face up when stating that she was just is silly person. Could not get straight answers from the patient and she had a bizarre affect. This was any acute change within a 15-20 minute interval between nursing evaluations. The patient's daughter was called and confirmed that this was not a normal change for the patient. Subsequently patient was sent to CT scan for noncontrast CT to rule out acute intercranial process. At the time of the end of my shift patient had just went down to CT on my review of the imaging there was no obvious acute defect but a official radiologic interpretation was pending. Given the patient's bizarre answers I suspect a component of the patient's symptoms may be due to underlying psychiatric illness or encephalopathy. I am less suspicious of CVA. Will monitor closely add check neuro checks q.4 hours. 30 minute spent in critical care activities
[2024-06-04] MEDS: APIXABAN 5 MG TABLET PO ×2 (09:23→20:05)
[2024-06-04] MEDS: METOPROLOL TARTRATE 50 MG TAB PO ×2 (09:23→20:06)
[2024-06-04] MEDS: FUROSEMIDE INJ 40 MG/4 ML VIAL 20 MG IV PUSH ×2 (09:23→17:29)
[2024-06-04] MEDS: PERFLUTREN LIPID MICROSPHERES 1.5 ML VIAL DILUTED TO 10 ML TOTAL VOLUME IV PUSH (12:30)
[2024-06-04] MEDS: LORATADINE 10 MG TABLET PO (13:12)
[2024-06-04] MEDS: PANTOPRAZOLE 40 MG TABLET PO (13:12)
[2024-06-04] MEDS: ATORVASTATIN 10 MG TABLET PO (13:12)
--- NOTE | 2024-06-04 13:34 | IVDEFINITY ---
Prior to administration of IV Definity the patient was educated on the risks and benefits of the imaging enhancing agent including potential adverse side effects. The patient verbalized understanding. Allergies were verified. No exclusion criteria were identified and at least one of the following inclusion criteria were met: 1) physician request, 2) patient technically difficult to image (per the [place] [employer] guidelines of two or more segments not discernable within the apical view), or 3) questionable left ventricular function. ?
[2024-06-04 14:37] LABS: Thyroid Stimulating Hormone Reflex 0.799 uIU/mL (0.465-4.68)
--- NOTE | 2024-06-04 16:28 | P.CONCA_ITS ---
Assessment and Plan Assessment and plan (1) Acute respiratory failure with hypoxia: Code(s): J96.01 - Acute respiratory failure with hypoxia Status: Acute Assessment and Plan: I suspect she has underlying obstructive sleep apnea that needs to be worked up as an outpatient. 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 which was normal previously hence her elevated troponin may be attributable to AFib RVR (3) Acute exacerbation of congestive heart failure: Code(s): I50.9 - Heart failure, unspecified Status: Acute Assessment and Plan: She has right-sided enlargement noted on her echocardiogram LV function is otherwise preserved is moderate severe tricuspid regurgitation primary hypertension I think she needs a Pulmonary consult to be evaluated for obstructive sleep apnea (4) Non-ST elevation [place] (NSTEMI): Code(s): I21.4 - Non-ST elevation (NSTEMI) myocardial infarction Status: Acute Assessment and Plan: Doubt this is ACS I think that this is related to demand situation with respiratory distress rapid atrial fibrillation and acute on chronic renal failure (5) Acute on chronic kidney failure: Code(s): N17.9 - Acute kidney failure, unspecified; N18.9 - Chronic kidney disease, unspecified Status: Acute Assessment and Plan: Elevation of creatinine compared to prior evaluations (6) Hyperlipidemia: Code(s): E78.5 - Hyperlipidemia, unspecified Status: Acute Assessment and Plan: : Recommend to discontinue her statin as her LFTs were noted to be elevated she is on minimal dose of Lipitor which can be stopped Plan Prior history of PE continue with anticoagulation may need to get her legs ultrasound scanned as she is not consistently taking oral anti coagulation prior to admission Diastolic CHF recommend IV diuretics and rate control for his atrial fibrillation the probably causing her to develop pleural effusions and hypoxia Troponin is elevated is likely multifactorial due to the rapid heart rate with the atrial fibrillation and diastolic decompensation acute on chronic CHF. 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 I would not utilize amiodarone as her liver enzymes were noted to be elevated and will recommend to discontinue her statin History of Present Illness History of Present Illness Consult date/time: 06/04/24 16:28 Reason For Visit: Heart Failure/Afib/New O2 Requirement Narrative: 84-year-old female was difficult to wake up however then awoken describes that she has not been taking her medications she has a history of diastolic CHF atrial fibrillation on Eliquis prior pulmonary embolism is noted the CT scan from April morbid obesity, CKD HTN cholesterol presents for evaluation shortness of breath. Consult from Elevated troponin. Troponin elevation is noted in the setting of acute renal failure where her creatinine has doubled up to 2.4. I reviewed her echocardiogram as noted below. She denies episodes of chest pain to the ER heart rate was noted to be 127.She was in rapid atrial fibrillation felt that she had pneumonia with CHF decompensation was given IV Lasix aspirin has been administered in setting of her elevated troponin. Echocardiogram from today Summary 1. Grossly normal LV size and systolic function. There is flattening of IVseptum c/w RV Pressure Volume overload. 2. Severely enlarged RV with preserved RV function. 3. Mod-severe TR and severe PHTN. 4. Severe PHTN. 5. No pericardial effusion. 6. The transthoracic echocardiogram is normal by two-dimensional, color flow imaging, and Doppler interrogation. 7. Technically difficult study with limited views. Left Ventricle Flattening of the septum in diastole and systole consistent with right ventricular volume and pressure overload. Left ventricular chamber dimension is normal. Left ventricular systolic function is normal, estimated at 55-60%. There is no increased left ventricular wall thickness. [facility] Past Medical History Medical History Spondylosis with myelopathy, lumbar region Schatzki's ring Pre-diabetes Opioid dependence with current use Obesity hypoventilation syndrome Morbid obesity due to excess calories Keratolysis exfoliativa Esophageal web Anxiety Chronic kidney disease, stage 3a Diffuse idiopathic skeletal hyperostosis Allergic sinusitis Chronic low back pain Generalized anxiety disorder Gastro-esophageal reflux disease without esophagitis Body mass index (BMI) 40.0-44.9, adult Peripheral vascular disease, unspecified History of tobacco use Surgical History Surgical History History of esophageal dilatation History of meniscectomy of right knee History of vertebroplasty History of colonoscopy with polypectomy Family History Family History Mother Asthma Patient's mother is in good health Sibling Patient's sister is in good health Patient's brother is in good health Other Family history of arthritis Social History Social History Social History: Surrogate medical decision maker: Mami Burns, daughter. Code status: Full code. Smoking packs per day: 2 Smoking cigarettes per day: 40.0 Years smoked: 10 Smoking pack-years: 20.00 Smoking status: Former smoker Second hand tobacco smoke exposure: No Alcohol intake: unknown Substance use: never Substance use type: does not use Do You Feel Safe in your Home?: Yes Lack of Transportation: No Lack of Food: Never True Current Housing: I Have Housing Concerned About Future Housing: No Difficulty Paying Gas/Electric Bills: No Difficulty Paying for Meds: No Currently Unemployed: No Education: High School Diploma/GED Difficulty w/ Childcare or Family Care: No Living arrangements: with family Occupation/Education: retired Spiritual care concerns: No Agree to blood products: Yes Meds Home Medications and Allergies Home Medications ?Medication ?Instructions ?Recorded ?Confirmed ?Type loratadine 10 mg capsule 10 mg PO DAILY #100 caps 02/24/24 06/04/24 Rx losartan 25 mg tablet 25 mg PO DAILY #90 tabs 04/13/24 06/04/24 Rx omeprazole 40 mg capsule,delayed 40 mg PO DAILY 04/30/24 06/04/24 History release apixaban 5 mg tablet (Eliquis) 5 mg PO Q12HR #30 tabs 05/04/24 06/04/24 Rx clonazepam 0.5 mg tablet 0.5 mg PO DAILY PRN panic 05/04/24 06/04/24 Rx attack(s) #10 tabs doxycycline hyclate 100 mg tablet 100 mg PO Q12HR #1 tablet 05/04/24 06/04/24 Rx furosemide 20 mg tablet (Lasix) 20 mg PO DAILY #10 tabs 05/04/24 06/04/24 Rx metoprolol tartrate 50 mg tablet 50 mg PO Q12HR #30 tabs 05/04/24 06/04/24 Rx tramadol 50 mg tablet 50 mg PO DAILY #10 tabs 05/04/24 06/04/24 Rx atorvastatin 10 mg tablet 10 mg PO DAILY #90 tabs 05/30/24 06/04/24 Rx Allergies Allergy/AdvReac Type Severity Reaction Status Date / Time alendronate sodium Allergy Unknown gastritis Verified 06/03/24 12:57 pravastatin Allergy Unknown unknown Verified 06/03/24 12:57 Vital Signs Vital Signs - 24 hr 06/03/24 17:45 06/03/24 18:17 06/03/24 23:58 Temperature Pulse Rate 116 H 119 H Respiratory Rate 25 H Blood Pressure 108/69 Pulse Oximetry 93 95 Oxygen Delivery Nasal Cannula Oxygen Flow Rate 6 Fraction of Inspired Oxygen 06/04/24 03:21 06/04/24 04:07 06/04/24 06:00 Temperature Pulse Rate 105 H 112 H 122 H Respiratory Rate 18 Blood Pressure 102/57 L Pulse Oximetry 100 Oxygen Delivery Oxygen Flow Rate Fraction of Inspired Oxygen 06/04/24 08:00 06/04/24 08:00 06/04/24 08:00 Temperature 36.7 C Pulse Rate 115 H 112 H Respiratory Rate 20 Blood Pressure 125/66 Pulse Oximetry 98 96 Oxygen Delivery Nasal Cannula Oxygen Flow Rate 4 Fraction of Inspired Oxygen 06/04/24 09:13 06/04/24 09:23 06/04/24 10:00 Temperature Pulse Rate 115 H 100 Respiratory Rate Blood Pressure Pulse Oximetry 95 Oxygen Delivery Nasal Cannula Oxygen Flow Rate 3 Fraction of Inspired Oxygen 32 06/04/24 12:00 06/04/24 12:00 06/04/24 12:00 Temperature 36.3 C L Pulse Rate 110 H 110 H Respiratory Rate 20 Blood Pressure 114/82 Pulse Oximetry 93 98 Oxygen Delivery Nasal Cannula Oxygen Flow Rate 4 Fraction of Inspired Oxygen 06/04/24 14:00 06/04/24 15:43 Temperature 36.3 C L Pulse Rate 111 H 110 H Respiratory Rate 20 Blood Pressure 108/60 Pulse Oximetry 98 Oxygen Delivery Oxygen Flow Rate Fraction of Inspired Oxygen Exam 2 Narrative: Difficult to awaken appears very groggy able to hold a limited history is not in distress Neck: Other: Unable to assess for JVD Resp: Other: Diminished air entry bilaterally No wheezes or rhonchi noted Decreased breath sounds bases Cardio: Other: Irregularly irregular rhythm tachycardia difficult to auscultate for murmur Extrem: Other: Mildly edematous Results Labs and Meds 06/04/24 05:07 06/04/24 05:07 Lab results: Cardiac Enzymes 06/03/24 06/04/24 Range/Units 18:45 05:07 AST 159 H (14-36) U/L Troponin I 0.603 H* 0.580 H* (0.000-0.034) ng/mL CBC 06/04/24 Range/Units 05:07 WBC 9.4 (4.5-10.0) K/mm3 RBC 4.40 (4.2-5.4) M/mm3 Hgb 13.8 (12.0-15.0) g/dL Hct 44.0 (37.0-47.0) % Plt Count 171 (150-375) k/mm3 Lymph # (Auto) 1.46 (0.9-3.2) K/mm3 Ransom # (Auto) 0.9 H (0.1-0.6) K/mm3 Eos # (Auto) 0.1 (0-0.3) K/mm3 Baso # (Auto) 0.0 (0.0-0.1) K/mm3 Comprehensive Metabolic Panel 06/04/24 Range/Units 05:07 Sodium 131 L (137-145) mmol/L Potassium 4.9 (3.4-5.0) mmol/L Chloride 92 L (98-107) mmol/L Carbon Dioxide 37 H (22-30) mmol/L BUN 50 H (7-17) mg/dL Creatinine 2.20 H (0.7-1.0) mg/dL Glucose 81 (65-110) mg/dL Calcium 10.0 (8.4-10.2) mg/dL AST 159 H (14-36) U/L ALT 108 H (6-35) U/L Alkaline Phosphatase 130 H (38-126) U/L Total Protein 7.0 (6.3-8.2) g/dL Albumin 3.7 (3.5-5.1) g/dL Intake and Output 06/04/24 06/04/24 06/04/24 07:59 15:59 23:59 Intake Total 300 Balance 300 Intake: Oral 300 Patient Weight 06/04/24 23:59 Weight 125.8 kg Imaging and Cardiology Echo: report reviewed (Summary 1. Grossly normal LV size and systolic function. There is flattening of IVseptum c/w RV Pressure Volume overload. 2. Severely enlarged RV with preserved RV function. 3. Mod-severe TR and severe PHTN. 4. Severe PHTN. 5. No pericardial effusion. 6. The transthoracic echocardiogram ) EKG Interpretation EKG shows: atrial fibrillation (Atrial fibrillation rapid ventricular response a rate of 114)
[2024-06-04] MEDS: LACTIC ACID 12% LOTION 225 BTL 1 APPLIC TOPICAL (17:29)
[2024-06-04] MEDS: ACETAMINOPHEN 325 MG TABLET 650 MG PO ×2 (18:35→23:58)
[2024-06-04] MEDS: DOXYCYCLINE HYCLATE 100 MG TABLET PO (20:06)
[2024-06-04] MEDS: MICONAZOLE NITRATE 2% CREAM 30 GM TUBE 1 APPLIC TOPICAL (20:07)
[2024-06-05] VITALS (25 sets, daily range): BP systolic 88–128; BP diastolic 54–91; PULSE 90–133; RESP 18–26; TEMP 36.5–36.7; O2SAT 93–100
[2024-06-05 00:16] LABS: Glucose Point of Care 115 mg/dl (65-105)
[2024-06-05 00:57] LABS: Alveolar/Arterial O2 Gradient 87.1 mmHg; Base Excess ABG 3.5 mEq/l (+/-2.0); Carboxyhemoglobin 1.1 % THb (0-2.0); Fractional Inspired Oxygen 32 %; HCO3 ABG 31.9 mEq/l (22.0-26.0); Methemoglobin ABG 0.1 %THb (0-1.5); Oxygen Saturation ABG 89.7 % (95.0-100.0); Oxyhemoglobin 90.4 % THb (90.0-100.0); Reduced Hemoglobin 8.4 %THb (0-5.0); Total Hemoglobin 14.2 g/dL (12.0-18.0); pH ABG 7.303 (7.350-7.450)
[2024-06-05 00:59] LABS: Device NASAL CANNULA; Modified Allen's Test Pass; PCO2 ABG 65.9 mmHg (35.0-45.0); Site Drawn LEFT RADIAL
[2024-06-05 05:20] LABS: Hemoglobin 13.5 g/dL (12.0-15.0); Mean Corpuscular HGB Conc 30.7 g/dl (32-36); Mean Corpuscular Volume 100.9 fl (80-100); Platelet Count Result 143 k/mm3 (150-375); Red Blood Count 4.36 M/mm3 (4.2-5.4); Red Cell Distribution Width 14.6 % (11.5-14.5); White Blood Count 8.7 K/mm3 (4.5-10.0)
[2024-06-05 05:32] LABS: Albumin Level 3.4 g/dL (3.5-5.1); Anion Gap -2 mmol/L (4-12); Blood Urea Nitrogen 47 mg/dL (7-17); Calcium 9.8 mg/dL (8.4-10.2); Carbon Dioxide 37 mmol/L (22-30); Chloride 96 mmol/L (98-107); Estimated CRCL calculation 27 ml/min; Estimated Glomerular Filt Rate 27; Glucose 92 mg/dL (65-110); Phosphorus 4.2 mg/dL (2.5-4.5); Potassium 4.9 mmol/L (3.4-5.0); Sodium 131 mmol/L (137-145)
[2024-06-05 05:33] LABS: Alanine Aminotransferase 104 U/L (6-35); Albumin Level 3.4 g/dL (3.5-5.1); Alkaline Phosphatase 104 U/L (38-126); Anion Gap -1 mmol/L (4-12); Aspartate Amino Transferase 152 U/L (14-36); Blood Urea Nitrogen 46 mg/dL (7-17); Calcium 9.8 mg/dL (8.4-10.2); Carbon Dioxide 37 mmol/L (22-30); Chloride 95 mmol/L (98-107); Estimated CRCL calculation 27 ml/min; Estimated Glomerular Filt Rate 27; Glucose 92 mg/dL (65-110); Sodium 131 mmol/L (137-145)
[2024-06-05 07:33] LABS: Alveolar/Arterial O2 Gradient 64.1 mmHg; Base Excess ABG 2.3 mEq/l (+/-2.0); Carboxyhemoglobin 1.3 % THb (0-2.0); Fractional Inspired Oxygen 32 %; HCO3 ABG 30.4 mEq/l (22.0-26.0); Methemoglobin ABG 0.1 %THb (0-1.5); Oxygen Content ABG 18.7 %vol (16.0-22.0); Oxygen Saturation ABG 95.9 % (95.0-100.0); Oxyhemoglobin 95.4 % THb (90.0-100.0); PO2 ABG 90.5 mmHg (80.0-100.0); PO2 FiO2 Ratio Arterial Blood 2.83 %; Reduced Hemoglobin 3.2 %THb (0-5.0); Total Hemoglobin 13.9 g/dL (12.0-18.0); pH ABG 7.302 (7.350-7.450)
[2024-06-05 07:34] LABS: Device NON-INVASIVE VENT; Modified Allen's Test Pass; Site Drawn RIGHT RADIAL
[2024-06-05 07:35] LABS: Non-Invasive Inspiratory Pressure 12 CMH2O; Non-Invasive Vent Rate 18 /MIN; PCO2 ABG 62.9 mmHg (35.0-45.0)
[2024-06-05 07:36] LABS: Non-Invasive Expiratory Pressure 6 CMH2O
[2024-06-05] MEDS: LACTIC ACID 12% LOTION 225 BTL 1 APPLIC TOPICAL ×2 (08:30→18:16)
[2024-06-05] MEDS: FUROSEMIDE INJ 40 MG/4 ML VIAL 20 MG IV PUSH ×2 (08:35→16:58)
--- NOTE | 2024-06-05 12:23 | P.PNIM_ITS ---
Progress Note: A&P Assessment and Plan (1) Acute respiratory failure with hypoxia: Code(s): J96.01 - Acute respiratory failure with hypoxia Status: Acute Assessment and Plan: Likely due to acute on chronic congestive heart failure associated with atrial fibrillation and rapid ventricular rate Not getting metoprolol or Eliquis due to her mental status change. Heart rate well controlled. Also with hypercarbia. ABG earlier this morning was 7.30/66/64 on 3 L nasal cannula. With BiPAP, ABG looks similar. She was pulling poor tidal volume so BiPAP was adjusted. Repeat ABG pending. Wean oxygen to keep SpO2 > 92%. Continue diuresis (2) Acute alteration in mental status: Code(s): R41.82 - Altered mental status, unspecified Status: Acute Assessment and Plan: This appears to be acute delirium probably related to acute respiratory failure. Consider also due to drug withdrawal as symptoms began at home with shakes and personality change and a feeling of her veins coursing (per phone conversation with daughter on 06/04/2024). Per other provider: On 06/04/24, daughter was in agreement with detox from opioids and benzodiazepines and avoiding these as long-term therapy CT brain showing no acute findings. Brain MR pending. CTA chest showing bilateral moderate pleural effusions with atelectasis vs PNA, probable cholelithiasis and fluid around liver Consider infectious process TSH normal. Check B12, folate. Check RUQ US. Check UA. (3) Atrial fibrillation with rapid ventricular response: Code(s): I48.91 - Unspecified atrial fibrillation Status: Acute Assessment and Plan: Likely exacerbated by medication non adherence. Metoprolol on hold while NPO. TSH normal. Echo showing EF 55-60%, RV pressure overload, seveely enlarged RV with prserved RV fxn, mod-severe TR and severe pHTN. Holding Eliquis. Will add renally dosed Lovenox. Use IV metoprolol if needed. (4) Acute exacerbation of congestive heart failure: Code(s): I50.9 - Heart failure, unspecified Status: Acute Assessment and Plan: Echo as above. Likely dCHF with right sided failure due to medication non adherence and atrial fibrillation with rapid ventricular rate. Continue diuresis (5) Non-ST elevation [place] (NSTEMI): Code(s): I21.4 - Non-ST elevation (NSTEMI) myocardial infarction Status: Acute Assessment and Plan: Trop at 0.68 but flat. EKG showing AFib/RVR (123), low voltage, age- indeterminate anterior W[place] similar to prior EKG Echo as above. Suspect type 2 demand infarcts secondary to rapid atrial fibrillation Add ASA when able. Resume Lipitor and metoprolol when able. (6) Acute on chronic kidney failure: Code(s): N17.9 - Acute kidney failure, unspecified; N18.9 - Chronic kidney disease, unspecified Status: Acute Assessment and Plan: Baseline Cr 1.2-1.3. Cr 2.4 on admission. KEESHA related to CHF, AFib/RVR, and respiratory failure. Also received contrast with CTA chest so mionitor for worsening renal function. Tolerating diuresis. Cr trending down to 1.8. Follow. Monitor UOP, electrolytes and renal fxn (7) Transaminitis: Code(s): R74.01 - Elevation of levels of liver transaminase levels Status: Acute Assessment and Plan: AST/ALT mildly elevated. and has been noted last month. Could be related to CHF. Follow. Check hepatitis panel. Check SMITA US. Plan DDimer - DDimer is 7. CTA negative for PE. Check extremities for DVT. She has been noncomplaint with anticoagulation DVT prophylaxis - Lovenox code status - full Subjective Date/time seen: 06/05/24 12:23 Interval history: 84yo female with dCHF, PE, pAFib, CKD and HTN here for shortness of breath. Assuming care. Chart reviewed. Patient's condition worsened overnight. She has Bipap in place. She arouses but unable to provide hx. Per chart review: patient has been having issues with taking medicines appropriately. Has not been taking Eliquis. Ran out of tramadol and clonazepam. Very sedentary. Unable to care for herself. Exam Narrative: AF 97.8 119/61 105 20 97% bipap Gen - NAD - appears comfotable on the mask HEENT - PERRL Chest -clear distant breath sounds anteriorly CV - RRR S1/S2 Abd -soft. Obese. Ext -legs are large with trace pitting edema. Neuro -arouses to voice. Cannot provide history. Does follow commands. Psych - difficult to assess Skin - Warm and dry Objective Data Vital Signs Vital Signs: Vital Signs - 24 hr 06/04/24 14:00 06/04/24 15:43 06/04/24 16:00 Temperature 97.4 F L Pulse Rate 111 H 110 H 113 H Respiratory Rate 20 Blood Pressure 108/60 Pulse Oximetry 98 Oxygen Delivery Oxygen Flow Rate Fraction of Inspired Oxygen 06/04/24 16:00 06/04/24 18:00 06/04/24 20:00 Temperature 97.8 F Pulse Rate 106 H 109 H Respiratory Rate 20 Blood Pressure 122/60 Pulse Oximetry 96 96 Oxygen Delivery Nasal Cannula Oxygen Flow Rate 4 Fraction of Inspired Oxygen 06/04/24 20:00 06/04/24 20:00 06/04/24 20:06 Temperature Pulse Rate 109 H 118 H Respiratory Rate Blood Pressure Pulse Oximetry 91 Oxygen Delivery Nasal Cannula Oxygen Flow Rate 4 Fraction of Inspired Oxygen 06/04/24 22:00 06/04/24 23:40 06/05/24 00:00 Temperature 97.7 F Pulse Rate 93 92 Respiratory Rate 20 Blood Pressure 106/64 Pulse Oximetry 95 95 Oxygen Delivery Nasal Cannula Oxygen Flow Rate 3 Fraction of Inspired Oxygen 06/05/24 00:00 06/05/24 02:00 06/05/24 02:15 Temperature Pulse Rate 106 H 102 H 98 Respiratory Rate 21 H Blood Pressure Pulse Oximetry 98 Oxygen Delivery BiPAP Oxygen Flow Rate Fraction of Inspired Oxygen 06/05/24 04:00 06/05/24 04:00 06/05/24 04:00 Temperature 97.8 F Pulse Rate 95 104 H Respiratory Rate 23 H Blood Pressure 100/63 Pulse Oximetry 96 96 Oxygen Delivery BiPAP Oxygen Flow Rate Fraction of Inspired Oxygen 06/05/24 06:00 06/05/24 07:26 06/05/24 07:43 Temperature Pulse Rate 109 H 95 90 Respiratory Rate 20 19 Blood Pressure Pulse Oximetry 96 97 Oxygen Delivery BiPAP BiPAP Oxygen Flow Rate Fraction of Inspired Oxygen 06/05/24 08:00 06/05/24 08:00 06/05/24 08:00 Temperature Pulse Rate 95 95 98 Respiratory Rate 18 18 Blood Pressure 128/65 Pulse Oximetry 100 100 Oxygen Delivery BiPAP Oxygen Flow Rate Fraction of Inspired Oxygen 32 06/05/24 10:00 06/05/24 10:35 06/05/24 11:54 Temperature Pulse Rate 97 98 105 H Respiratory Rate 24 H 20 Blood Pressure 119/61 Pulse Oximetry 99 97 Oxygen Delivery BiPAP Oxygen Flow Rate Fraction of Inspired Oxygen Intake/Output Intake/Output: Intake & Output 06/02/24 06/03/24 06/04/24 06/05/24 23:59 23:59 23:59 23:59 Intake Total 740 Output Total 500 500 Balance 240 -500 Meds/Results Medications: Active Medications Generic Name Dose Route Start Last Admin Trade Name Freq PRN Reason Stop Dose Admin Acetaminophen 650 mg 06/03/24 18:29 06/04/24 23:58 Acetaminophen 325 Mg Tablet PO 650 mg Q4H PRN Administration Mild Pain (1-3) or Fever Apixaban 5 mg 06/04/24 21:00 06/04/24 20:05 Apixaban 5 Mg Tablet PO 5 mg Q12HR BEVERLY Administration Atorvastatin Calcium 10 mg 06/04/24 09:00 06/04/24 13:12 Atorvastatin 10 Mg Tablet PO 10 mg DAILY BEVERLY Administration Doxycycline Hyclate 100 mg 06/04/24 09:00 06/04/24 20:06 Doxycycline Hyclate 100 Mg Tablet PO 100 mg Q12HR BEVERLY Administration Furosemide 20 mg 06/04/24 09:00 06/05/24 08:35 Furosemide Inj 40 Mg/4 Ml Vial IV PUSH 20 mg BID BEVERLY Administration Lactic Acid 1 applic 06/04/24 17:00 06/04/24 17:29 Lactic Acid 12% Lotion 225 Btl TOPICAL 1 applic BID BEVERLY Administration Loratadine 10 mg 06/04/24 09:00 06/04/24 13:12 Loratadine 10 Mg Tablet PO 10 mg DAILY BEVERLY Administration Metoprolol Tartrate 50 mg 06/04/24 21:00 06/04/24 20:06 Metoprolol Tartrate 50 Mg Tab PO Not Given Q12HR BEVERLY Miconazole Nitrate 1 applic 06/04/24 21:00 06/04/24 20:07 Miconazole Nitrate 2% Cream 30 Gm Tube TOPICAL 1 applic HS BEVERLY Administration Miscellaneous Information 0 each 06/04/24 00:01 Doxycycline - When Is The Stop Date For Home Med? XX 07/04/24 00:00 CLARIFY BEVERLY Ondansetron HCl 4 mg 06/03/24 18:29 Ondansetron Inj 4 Mg/2 Ml Vial IV PUSH Q4H PRN Nausea Pantoprazole Sodium 40 mg 06/04/24 09:00 06/04/24 13:12 Pantoprazole 40 Mg Tablet PO 40 mg QAM BEVERLY Administration Radiology Results: ITS Impressions Chest X-Ray 06/03/24 14:55 IMPRESSION: 1. Worsened airspace in the mid and lower lung zones, consistent with atelectasis versus pneumonia. 2. Small pleural effusions. 3. Cardiomegaly. Chest CTA 06/03/24 17:13 IMPRESSION: 1. No pulmonary embolism. 2. Bilateral moderate pleural effusion with atelectasis versus pneumonia. 3. Multiple nodules seen bilaterally which measures 5 mm. 6 months follow-up CT scan is advised. 4. Highly suggestive cholelithiasis. 5. Minimal fluid around the liver. Head CT 06/04/24 07:53 IMPRESSION: Cerebral atherosclerosis No acute intracranial finding Labs Labs: Laboratory Results - last 24 hr 06/04/24 06/05/24 06/05/24 05:07 00:13 00:28 WBC RBC Hgb Hct MCV MCH MCHC RDW Plt Count MPV Puncture Site Left radial ABG pH 7.303 L ABG pCO2 65.9 H* ABG pO2 64.0 L ABG PO2/FiO2 Ratio 2.00 ABG HCO3 31.9 H ABG O2 Saturation 89.7 L ABG O2 Content 18.0 ABG Base Excess 3.5 A-a Gradient 87.1 Oxyhemoglobin 90.4 Carboxyhemoglobin 1.1 Methemoglobin 0.1 Reduced Hemoglobin 8.4 H Total Hemoglobin 14.2 O2 Delivery Device Nasal cannula O2 Liters/Min 3.0 Vent Rate FiO2 32 Expiratory Pressure Inspiratory Pressure Sodium Potassium Chloride Carbon Dioxide Anion Gap BUN Creatinine Estim Creat Clear Calc Estimated GFR Glucose POC Capillary Glucose 115 H Calcium Phosphorus Total Bilirubin AST ALT Alkaline Phosphatase Total Protein Albumin TSH (Reflex) 0.799 06/05/24 06/05/24 06/05/24 05:10 05:10 05:10 WBC 8.7 RBC 4.36 Hgb 13.5 Hct 44.0 MCV 100.9 H MCH 31.0 MCHC 30.7 L RDW 14.6 H Plt Count 143 L MPV 11.0 H Puncture Site ABG pH ABG pCO2 ABG pO2 ABG PO2/FiO2 Ratio ABG HCO3 ABG O2 Saturation ABG O2 Content ABG Base Excess A-a Gradient Oxyhemoglobin Carboxyhemoglobin Methemoglobin Reduced Hemoglobin Total Hemoglobin O2 Delivery Device O2 Liters/Min Vent Rate FiO2 Expiratory Pressure Inspiratory Pressure Sodium 131 L 131 L Potassium 4.9 5.0 Chloride 96 L Carbon Dioxide Anion Gap BUN Creatinine Estim Creat Clear Calc Estimated GFR Glucose POC Capillary Glucose Calcium Phosphorus Total Bilirubin AST ALT Alkaline Phosphatase Total Protein Albumin TSH (Reflex) 06/05/24 06/05/24 06/05/24 05:10 05:10 05:10 WBC RBC Hgb Hct MCV MCH MCHC RDW Plt Count MPV Puncture Site ABG pH ABG pCO2 ABG pO2 ABG PO2/FiO2 Ratio ABG HCO3 ABG O2 Saturation ABG O2 Content ABG Base Excess A-a Gradient Oxyhemoglobin Carboxyhemoglobin Methemoglobin Reduced Hemoglobin Total Hemoglobin O2 Delivery Device O2 Liters/Min Vent Rate FiO2 Expiratory Pressure Inspiratory Pressure Sodium Potassium Chloride 95 L Carbon Dioxide 37 H 37 H Anion Gap -2 L -1 L BUN 47 H Creatinine Estim Creat Clear Calc Estimated GFR Glucose POC Capillary Glucose Calcium Phosphorus Total Bilirubin AST ALT Alkaline Phosphatase Total Protein Albumin TSH (Reflex) 06/05/24 06/05/24 06/05/24 05:10 05:10 05:10 WBC RBC Hgb Hct MCV MCH MCHC RDW Plt Count MPV Puncture Site ABG pH ABG pCO2 ABG pO2 ABG PO2/FiO2 Ratio ABG HCO3 ABG O2 Saturation ABG O2 Content ABG Base Excess A-a Gradient Oxyhemoglobin Carboxyhemoglobin Methemoglobin Reduced Hemoglobin Total Hemoglobin O2 Delivery Device O2 Liters/Min Vent Rate FiO2 Expiratory Pressure Inspiratory Pressure Sodium Potassium Chloride Carbon Dioxide Anion Gap BUN 46 H Creatinine 1.80 H 1.80 H Estim Creat Clear Calc 27 27 Estimated GFR 27 L Glucose POC Capillary Glucose Calcium Phosphorus Total Bilirubin AST ALT Alkaline Phosphatase Total Protein Albumin TSH (Reflex) 06/05/24 06/05/24 06/05/24 05:10 05:10 05:10 WBC RBC Hgb Hct MCV MCH MCHC RDW Plt Count MPV Puncture Site ABG pH ABG pCO2 ABG pO2 ABG PO2/FiO2 Ratio ABG HCO3 ABG O2 Saturation ABG O2 Content ABG Base Excess A-a Gradient Oxyhemoglobin Carboxyhemoglobin Methemoglobin Reduced Hemoglobin Total Hemoglobin O2 Delivery Device O2 Liters/Min Vent Rate FiO2 Expiratory Pressure Inspiratory Pressure Sodium Potassium Chloride Carbon Dioxide Anion Gap BUN Creatinine Estim Creat Clear Calc Estimated GFR 27 L Glucose 92 92 POC Capillary Glucose Calcium 9.8 9.8 Phosphorus 4.2 Total Bilirubin 1.0 AST 152 H ALT 104 H Alkaline Phosphatase 104 Total Protein 6.0 L Albumin 3.4 L TSH (Reflex) 06/05/24 06/05/24 05:10 07:28 WBC RBC Hgb Hct MCV MCH MCHC RDW Plt Count MPV Puncture Site Right radial ABG pH 7.302 L ABG pCO2 62.9 H* ABG pO2 90.5 ABG PO2/FiO2 Ratio 2.83 ABG HCO3 30.4 H ABG O2 Saturation 95.9 ABG O2 Content 18.7 ABG Base Excess 2.3 A-a Gradient 64.1 Oxyhemoglobin 95.4 Carboxyhemoglobin 1.3 Methemoglobin 0.1 Reduced Hemoglobin 3.2 Total Hemoglobin 13.9 O2 Delivery Device Non-invasive vent O2 Liters/Min Not Reportable Vent Rate 18 FiO2 32 Expiratory Pressure 6 Inspiratory Pressure 12 Sodium Potassium Chloride Carbon Dioxide Anion Gap BUN Creatinine Estim Creat Clear Calc Estimated GFR Glucose POC Capillary Glucose Calcium Phosphorus Total Bilirubin AST ALT Alkaline Phosphatase Total Protein Albumin 3.4 L TSH (Reflex)
--- NOTE | 2024-06-05 12:33 | P.PNCA_ITS ---
Progress Note: A&P Assessment and Plan (1) Acute exacerbation of congestive heart failure: Code(s): I50.9 - Heart failure, unspecified Status: Acute Assessment and Plan: Elevated BNP noted 29,800 likely related to her RV enlargement respiratory distress (2) Non-ST elevation MS (NSTEMI): Code(s): I21.4 - Non-ST elevation (NSTEMI) myocardial infarction Status: Acute Assessment and Plan: Troponins were elevated however remained flat doubt related to any event attributable to ACS Her creatinine had doubled compared to previous Suspect acute on chronic renal failure as a component of elevated troponin (3) Atrial fibrillation with rapid ventricular response: Code(s): I48.91 - Unspecified atrial fibrillation Status: Acute Assessment and Plan: Echocardiogram demonstrated a large RV and atrial enlargement and severe pulmonary hypertension suspect that she has refractory to cause her underlying AFib Was supposed to be on oral anticoagulation for pulmonary embolism as well as AFib Concurrently not getting anticoagulation orally since she is on BiPAP Recommend transitioning her to Lovenox renally adjusted dose b.i.d. dosing (4) Pulmonary embolism: Qualifiers: Acute cor pulmonale presence: unspecified Chronicity: acute Pulmonary embolism type: other Qualified Code(s): I26.99 - Other pulmonary embolism without acute cor pulmonale Code(s): I26.99 - Other pulmonary embolism without acute cor pulmonale Status: Acute Assessment and Plan: Was supposed to be on anticoagulation for pulmonary embolism as well as AFib Concurrently not getting anticoagulation orally Recommend transitioning her to Lovenox renally adjusted dose b.i.d. dosing (5) Pulmonary emboli: Qualifiers: Pulmonary embolism type: unspecified Chronicity: acute Acute cor pulmonale presence: unspecified Qualified Code(s): I26.99 - Other pulmonary embolism without acute cor pulmonale Code(s): I26.99 - Other pulmonary embolism without acute cor pulmonale Status: Acute Assessment and Plan: Was supposed to be on anticoagulation for pulmonary embolism as well as AFib Concurrently not getting anticoagulation orally Recommend transitioning her to Lovenox renally adjusted dose b.i.d. dosing She has a large RV doubt that she would be able to tolerate any further pulmonary emboli with her severe pulmonary hypertension Would consider getting DVT study done prior to discharge since she has been noncompliant with oral anticoagulation Plan Continue with BiPAP Suspect she will need to get a pulmonary consult for evaluation for sleep apnea Anticoagulation with Lovenox renally adjusted dosage for history of pulmonary embolism as well as atrial fibrillation Rate control atrial fibrillation as tolerated Recommend getting DVT study done since he has been noncompliant with oral anticoagulation Subjective Date/time seen: 06/05/24 12:33 Interval history: Currently on BiPAP remains in atrial fibrillation seems little more alert today than yesterday does not seem to respond coherently to questions Exam Narrative: Awake and alert can gauge orientation currently using BiPAP Resp: Other: Decreased breath sounds there is no rhonchi or wheezes noted Cardio: Other: Distant S1-S2 regular rhythm atrial fibrillation noted on first sampler Extrem: Other: Generalized edematous appearing legs No obvious Homans sign able to be elicited Objective Data Vital Signs Vital Signs: Vital Signs - 24 hr 06/04/24 14:00 06/04/24 15:43 06/04/24 16:00 Temperature 36.3 C L Pulse Rate 111 H 110 H 113 H Respiratory Rate 20 Blood Pressure 108/60 Pulse Oximetry 98 Oxygen Delivery Oxygen Flow Rate Fraction of Inspired Oxygen 06/04/24 16:00 06/04/24 18:00 06/04/24 20:00 Temperature 36.6 C Pulse Rate 106 H 109 H Respiratory Rate 20 Blood Pressure 122/60 Pulse Oximetry 96 96 Oxygen Delivery Nasal Cannula Oxygen Flow Rate 4 Fraction of Inspired Oxygen 06/04/24 20:00 06/04/24 20:00 06/04/24 20:06 Temperature Pulse Rate 109 H 118 H Respiratory Rate Blood Pressure Pulse Oximetry 91 Oxygen Delivery Nasal Cannula Oxygen Flow Rate 4 Fraction of Inspired Oxygen 06/04/24 22:00 06/04/24 23:40 06/05/24 00:00 Temperature 36.5 C Pulse Rate 93 92 Respiratory Rate 20 Blood Pressure 106/64 Pulse Oximetry 95 95 Oxygen Delivery Nasal Cannula Oxygen Flow Rate 3 Fraction of Inspired Oxygen 06/05/24 00:00 06/05/24 02:00 06/05/24 02:15 Temperature Pulse Rate 106 H 102 H 98 Respiratory Rate 21 H Blood Pressure Pulse Oximetry 98 Oxygen Delivery BiPAP Oxygen Flow Rate Fraction of Inspired Oxygen 06/05/24 04:00 06/05/24 04:00 06/05/24 04:00 Temperature 36.6 C Pulse Rate 95 104 H Respiratory Rate 23 H Blood Pressure 100/63 Pulse Oximetry 96 96 Oxygen Delivery BiPAP Oxygen Flow Rate Fraction of Inspired Oxygen 06/05/24 06:00 06/05/24 07:26 06/05/24 07:43 Temperature Pulse Rate 109 H 95 90 Respiratory Rate 20 19 Blood Pressure Pulse Oximetry 96 97 Oxygen Delivery BiPAP BiPAP Oxygen Flow Rate Fraction of Inspired Oxygen 06/05/24 08:00 06/05/24 08:00 06/05/24 08:00 Temperature Pulse Rate 95 95 98 Respiratory Rate 18 18 Blood Pressure 128/65 Pulse Oximetry 100 100 Oxygen Delivery BiPAP Oxygen Flow Rate Fraction of Inspired Oxygen 32 06/05/24 10:00 06/05/24 10:35 06/05/24 11:54 Temperature Pulse Rate 97 98 105 H Respiratory Rate 24 H 20 Blood Pressure 119/61 Pulse Oximetry 99 97 Oxygen Delivery BiPAP Oxygen Flow Rate Fraction of Inspired Oxygen 06/05/24 12:00 Temperature Pulse Rate 105 H Respiratory Rate 20 Blood Pressure Pulse Oximetry 97 Oxygen Delivery BiPAP Oxygen Flow Rate Fraction of Inspired Oxygen 32 Intake/Output Intake/Output: Intake & Output 06/02/24 06/03/24 06/04/24 06/05/24 23:59 23:59 23:59 23:59 Intake Total 740 Output Total 500 500 Balance 240 -500 Meds/Results Medications: Active Medications Generic Name Dose Route Start Last Admin Trade Name Freq PRN Reason Stop Dose Admin Acetaminophen 650 mg 06/03/24 18:29 06/04/24 23:58 Acetaminophen 325 Mg Tablet PO 650 mg Q4H PRN Administration Mild Pain (1-3) or Fever Apixaban 5 mg 06/04/24 21:00 06/04/24 20:05 Apixaban 5 Mg Tablet PO 5 mg Q12HR BEVERLY Administration Atorvastatin Calcium 10 mg 06/04/24 09:00 06/04/24 13:12 Atorvastatin 10 Mg Tablet PO 10 mg DAILY [facility]LY Administration Doxycycline Hyclate 100 mg 06/04/24 09:00 06/04/24 20:06 Doxycycline Hyclate 100 Mg Tablet PO 100 mg Q12HR B[facility]LY Administration Furosemide 20 mg 06/04/24 09:00 06/05/24 08:35 Furosemide Inj 40 Mg/4 Ml Vial IV PUSH 20 mg BID BEVELRY Administration Lactic Acid 1 applic 06/04/24 17:00 06/04/24 17:29 Lactic Acid 12% Lotion 225 Btl TOPICAL 1 applic BID BEVERLY Administration Loratadine 10 mg 06/04/24 09:00 06/04/24 13:12 Loratadine 10 Mg Tablet PO 10 mg DAILY [facility] Administration Metoprolol Tartrate 50 mg 06/04/24 21:00 06/04/24 20:06 Metoprolol Tartrate 50 Mg Tab PO Not Given Q12HR [facility] Miconazole Nitrate 1 applic 06/04/24 21:00 06/04/24 20:07 Miconazole Nitrate 2% Cream 30 Gm Tube TOPICAL 1 applic HS BEVERLY Administration Miscellaneous Information 0 each 06/04/24 00:01 Doxycycline - When Is The Stop Date For Home Med? XX 07/04/24 00:00 CLARIFY [facility] Ondansetron HCl 4 mg 06/03/24 18:29 Ondansetron Inj 4 Mg/2 Ml Vial IV PUSH Q4H PRN Nausea Pantoprazole Sodium 40 mg 06/04/24 09:00 06/04/24 13:12 Pantoprazole 40 Mg Tablet PO 40 mg QAM BEVERLY Administration Radiology Results: ITS Impressions Chest X-Ray 06/03/24 14:55 IMPRESSION: 1. Worsened airspace in the mid and lower lung zones, consistent with atelectasis versus pneumonia. 2. Small pleural effusions. 3. Cardiomegaly. Chest CTA 06/03/24 17:13 IMPRESSION: 1. No pulmonary embolism. 2. Bilateral moderate pleural effusion with atelectasis versus pneumonia. 3. Multiple nodules seen bilaterally which measures 5 mm. 6 months follow-up CT scan is advised. 4. Highly suggestive cholelithiasis. 5. Minimal fluid around the liver. Head CT 06/04/24 07:53 IMPRESSION: Cerebral atherosclerosis No acute intracranial finding Labs Labs: Laboratory Results - last 24 hr 06/04/24 06/05/24 06/05/24 05:07 00:13 00:28 WBC RBC Hgb Hct MCV MCH MCHC RDW Plt Count MPV Puncture Site Left radial ABG pH 7.303 L ABG pCO2 65.9 H* ABG pO2 64.0 L ABG PO2/FiO2 Ratio 2.00 ABG HCO3 31.9 H ABG O2 Saturation 89.7 L ABG O2 Content 18.0 ABG Base Excess 3.5 A-a Gradient 87.1 Oxyhemoglobin 90.4 Carboxyhemoglobin 1.1 Methemoglobin 0.1 Reduced Hemoglobin 8.4 H Total Hemoglobin 14.2 O2 Delivery Device Nasal cannula O2 Liters/Min 3.0 Vent Rate FiO2 32 Expiratory Pressure Inspiratory Pressure Sodium Potassium Chloride Carbon Dioxide Anion Gap BUN Creatinine Estim Creat Clear Calc Estimated GFR Glucose POC Capillary Glucose 115 H Calcium Phosphorus Total Bilirubin AST ALT Alkaline Phosphatase Total Protein Albumin TSH (Reflex) 0.799 06/05/24 06/05/24 06/05/24 05:10 05:10 05:10 WBC 8.7 RBC 4.36 Hgb 13.5 Hct 44.0 MCV 100.9 H MCH 31.0 MCHC 30.7 L RDW 14.6 H Plt Count 143 L MPV 11.0 H Puncture Site ABG pH ABG pCO2 ABG pO2 ABG PO2/FiO2 Ratio ABG HCO3 ABG O2 Saturation ABG O2 Content ABG Base Excess A-a Gradient Oxyhemoglobin Carboxyhemoglobin Methemoglobin Reduced Hemoglobin Total Hemoglobin O2 Delivery Device O2 Liters/Min Vent Rate FiO2 Expiratory Pressure Inspiratory Pressure Sodium 131 L 131 L Potassium 4.9 5.0 Chloride 96 L Carbon Dioxide Anion Gap BUN Creatinine Estim Creat Clear Calc Estimated GFR Glucose POC Capillary Glucose Calcium Phosphorus Total Bilirubin AST ALT Alkaline Phosphatase Total Protein Albumin TSH (Reflex) 06/05/24 06/05/24 06/05/24 05:10 05:10 05:10 WBC RBC Hgb Hct MCV MCH MCHC RDW Plt Count MPV Puncture Site ABG pH ABG pCO2 ABG pO2 ABG PO2/FiO2 Ratio ABG HCO3 ABG O2 Saturation ABG O2 Content ABG Base Excess A-a Gradient Oxyhemoglobin Carboxyhemoglobin Methemoglobin Reduced Hemoglobin Total Hemoglobin O2 Delivery Device O2 Liters/Min Vent Rate FiO2 Expiratory Pressure Inspiratory Pressure Sodium Potassium Chloride 95 L Carbon Dioxide 37 H 37 H Anion Gap -2 L -1 L BUN 47 H Creatinine Estim Creat Clear Calc Estimated GFR Glucose POC Capillary Glucose Calcium Phosphorus Total Bilirubin AST ALT Alkaline Phosphatase Total Protein Albumin TSH (Reflex) 06/05/24 06/05/24 06/05/24 05:10 05:10 05:10 WBC RBC Hgb Hct MCV MCH MCHC RDW Plt Count MPV Puncture Site ABG pH ABG pCO2 ABG pO2 ABG PO2/FiO2 Ratio ABG HCO3 ABG O2 Saturation ABG O2 Content ABG Base Excess A-a Gradient Oxyhemoglobin Carboxyhemoglobin Methemoglobin Reduced Hemoglobin Total Hemoglobin O2 Delivery Device O2 Liters/Min Vent Rate FiO2 Expiratory Pressure Inspiratory Pressure Sodium Potassium Chloride Carbon Dioxide Anion Gap BUN 46 H Creatinine 1.80 H 1.80 H Estim Creat Clear Calc 27 27 Estimated GFR 27 L Glucose POC Capillary Glucose Calcium Phosphorus Total Bilirubin AST ALT Alkaline Phosphatase Total Protein Albumin TSH (Reflex) 06/05/24 06/05/24 06/05/24 05:10 05:10 05:10 WBC RBC Hgb Hct MCV MCH MCHC RDW Plt Count MPV Puncture Site ABG pH ABG pCO2 ABG pO2 ABG PO2/FiO2 Ratio ABG HCO3 ABG O2 Saturation ABG O2 Content ABG Base Excess A-a Gradient Oxyhemoglobin Carboxyhemoglobin Methemoglobin Reduced Hemoglobin Total Hemoglobin O2 Delivery Device O2 Liters/Min Vent Rate FiO2 Expiratory Pressure Inspiratory Pressure Sodium Potassium Chloride Carbon Dioxide Anion Gap BUN Creatinine Estim Creat Clear Calc Estimated GFR 27 L Glucose 92 92 POC Capillary Glucose Calcium 9.8 9.8 Phosphorus 4.2 Total Bilirubin 1.0 AST 152 H ALT 104 H Alkaline Phosphatase 104 Total Protein 6.0 L Albumin 3.4 L TSH (Reflex) 06/05/24 06/05/24 05:10 07:28 WBC RBC Hgb Hct MCV MCH MCHC RDW Plt Count MPV Puncture Site Right radial ABG pH 7.302 L ABG pCO2 62.9 H* ABG pO2 90.5 ABG PO2/FiO2 Ratio 2.83 ABG HCO3 30.4 H ABG O2 Saturation 95.9 ABG O2 Content 18.7 ABG Base Excess 2.3 A-a Gradient 64.1 Oxyhemoglobin 95.4 Carboxyhemoglobin 1.3 Methemoglobin 0.1 Reduced Hemoglobin 3.2 Total Hemoglobin 13.9 O2 Delivery Device Non-invasive vent O2 Liters/Min Not Reportable Vent Rate 18 FiO2 32 Expiratory Pressure 6 Inspiratory Pressure 12 Sodium Potassium Chloride Carbon Dioxide Anion Gap BUN Creatinine Estim Creat Clear Calc Estimated GFR Glucose POC Capillary Glucose Calcium Phosphorus Total Bilirubin AST ALT Alkaline Phosphatase Total Protein Albumin 3.4 L TSH (Reflex) Imaging Radiologist's impression: Echocardiogram performed during this hospitalization Summary 1. Grossly normal LV size and systolic function. There is flattening of IVseptum c/w RV Pressure Volume overload. 2. Severely enlarged RV with preserved RV function. 3. Mod-severe TR and severe PHTN. 4. Severe PHTN. 5. No pericardial effusion. 6. The transthoracic echocardiogram is normal by two-dimensional, color flow imaging, and Doppler interrogation. 7. Technically difficult study with limited views. Left Ventricle Flattening of the septum in diastole and systole consistent with right ventricular volume and pressure overload. Left ventricular chamber dimension is normal. Left ventricular systolic function is normal, estimated at 55-60%. There is no increased left ventricular wall thickness. Right Ventricle Right ventricular chamber dimension is severely enlarged. Right ventricular systolic function is normal. Left Atria Left atrial chamber dimension is normal. Right Atria Right atrial chamber dimension is moderately enlarged. Aortic Valve The aortic valve is probable trileaflet. There is no aortic valve regurgitation. Pulmonic Valve The pulmonic valve is not well visualized. There is no pulmonic regurgitation. Mitral Valve The mitral valve has normal leaflets. There is trace mitral valve regurgitation. There is mild mitral valve calcification. The mitral valve annulus is mildly calcified. Tricuspid Valve The tricuspid valve leaflets are normal. There is moderate to severe tricuspid valve regurgitation. Severe pulmonary hypertension, estimated pulmonary arterial systolic pressure is 65 mmHg. Pericardium/Pleural The pericardium appears normal. There is no pericardial effusion. Aorta The aortic root size at the sinus of Valsalva is not well visualized.
[2024-06-05 13:41] LABS: Alveolar/Arterial O2 Gradient 38.1 mmHg; Base Excess ABG 9.6 mEq/l (+/-2.0); Carboxyhemoglobin 1.5 % THb (0-2.0); HCO3 ABG 37.7 mEq/l (22.0-26.0); Methemoglobin ABG 0.2 %THb (0-1.5); Oxygen Content ABG 18.4 %vol (16.0-22.0); Oxygen Saturation ABG 89.8 % (95.0-100.0); Oxyhemoglobin 90.4 % THb (90.0-100.0); PO2 ABG 60.8 mmHg (80.0-100.0); PO2 FiO2 Ratio Arterial Blood 2.43 %; Reduced Hemoglobin 7.9 %THb (0-5.0); Total Hemoglobin 14.5 g/dL (12.0-18.0)
[2024-06-05 13:42] LABS: Device NON-INVASIVE VENT; Modified Allen's Test Pass; PCO2 ABG 66.8 mmHg (35.0-45.0); Site Drawn RIGHT RADIAL
[2024-06-05 13:43] LABS: Fractional Inspired Oxygen 21 %; Non-Invasive Expiratory Pressure 6 CMH2O; Non-Invasive Inspiratory Pressure 14 CMH2O; Non-Invasive Vent Rate 18 /MIN
[2024-06-05] MEDS: ENOXAPARIN 80 MG/0.8 ML SYRINGE 65 MG SUB-Q (14:48)
[2024-06-05] MEDS: ENOXAPARIN 60 MG/0.6 ML SYRINGE SUB-Q (14:49)
--- NOTE | 2024-06-05 14:52 | PC.NURSE ---
Dr. Osborne notified that AM weren't given at 0800 med pass due to pt being on a continuous BiPAP and unable to swallow at that time. Pt was re-evaluated several times after that and is still unsafe to take oral medications. Dr. Osborne update on pt's condition and is aware that pt didn't receive morning medications. No new orders received
[2024-06-05] MEDS: cefTRIAXone 2 GM/NS 100 ML 2 GM/100 ML BAG IVPB (17:42)
[2024-06-05] MEDS: AMPICILLIN 2 GM/NS 100 ML 2 GM/100 ML BAG IVPB (18:16)
[2024-06-05 18:19] LABS: Add Urine Microscopic? YES; Appearance Urine Clear (Clear); Bacteria Urine 4+ /hpf; Bilirubin Urine Negative (Negative); Blood Urine Negative (Negative); Color Urine Yellow (Yellow); Glucose Urine UA Negative (Negative); Ketones Urine Negative (Negative); Leukocyte Esterase Ur 1+ LEU/UL (Negative); Nitrate Urine Positive (Negative); Non Pathogenic Casts 0-2; Protein Urine Negative (Negative); RBC Urine 0-2 /hpf (0-2); Specific Grav Ur 1.013 (1.001-1.035); Squamous Epithelial Cell Urine None Seen /hpf (Few); Urobilinogen Urine 0.2 mg/dL (<2.0); WBC Urine 21-50 /hpf (0-3); pH Urine 5.5 (5.0-9.0)
[2024-06-05] MEDS: ACYCLOVIR SODIUM IVPB (19:31)
[2024-06-05] MEDS: WATER IVPB (19:31)
[2024-06-05] MEDS: DEXTROSE 5% IVPB (19:31)
[2024-06-05] MEDS: VANCOMYCIN 2,000 MG/NS 500 ML 2,000 MG/500 ML BAG 250 MG IVPB (20:32)
[2024-06-05] MEDS: METOPROLOL TARTRATE 50 MG TAB PO (20:33)
[2024-06-05] MEDS: MICONAZOLE NITRATE 2% CREAM 30 GM TUBE 1 APPLIC TOPICAL (20:52)
[2024-06-06] VITALS (25 sets, daily range): BP systolic 96–155; BP diastolic 60–93; PULSE 85–136; RESP 18–26; TEMP 36.4–37.1; O2SAT 91–99
[2024-06-06] MEDS: AMPICILLIN 2 GM/NS 100 ML 2 GM/100 ML BAG IVPB ×3 (02:22→17:48)
[2024-06-06] MEDS: cefTRIAXone 2 GM/NS 100 ML 2 GM/100 ML BAG IVPB ×2 (04:28→16:43)
[2024-06-06 05:05] LABS: Hematocrit 42.9 % (37.0-47.0); Hemoglobin 13.5 g/dL (12.0-15.0); Mean Corpuscular HGB Conc 31.5 g/dl (32-36); Mean Corpuscular Hemoglobin 31.3 pg (26-34); Mean Corpuscular Volume 99.3 fl (80-100); Mean Platelet Volume 11.4 fl (7.4-10.4); Platelet Count Result 154 k/mm3 (150-375); Red Blood Count 4.32 M/mm3 (4.2-5.4); Red Cell Distribution Width 14.6 % (11.5-14.5); White Blood Count 8.4 K/mm3 (4.5-10.0)
[2024-06-06 05:18] LABS: Ammonia < 9 umol/L (9-30); Magnesium 1.9 mg/dL (1.6-2.3); Phosphorus 2.2 mg/dL (2.5-4.5)
[2024-06-06 05:23] LABS: Alanine Aminotransferase 82 U/L (6-35); Albumin Level 3.2 g/dL (3.5-5.1); Alkaline Phosphatase 89 U/L (38-126); Aspartate Amino Transferase 115 U/L (14-36); Bilirubin,Total 1.2 mg/dL (0.2-1.3); Blood Urea Nitrogen 33 mg/dL (7-17); Calcium 9.4 mg/dL (8.4-10.2); Carbon Dioxide > 40 mmol/L (22-30); Chloride 94 mmol/L (98-107); Estimated CRCL calculation 40 ml/min; Estimated Glomerular Filt Rate 43; Glucose 73 mg/dL (65-110); Sodium 135 mmol/L (137-145)
[2024-06-06] MEDS: SODIUM CHLOR 3% 15 ML NEB (RESPIRATORY THERAPY) 6 ML INHALATION (05:33)
[2024-06-06 05:38] LABS: Alveolar/Arterial O2 Gradient 57.2 mmHg; Base Excess ABG 11.7 mEq/l (+/-2.0); Fractional Inspired Oxygen 25 %; HCO3 ABG 38.1 mEq/l (22.0-26.0); Oxygen Content ABG 18.2 %vol (16.0-22.0); PCO2 ABG 56.1 mmHg (35.0-45.0); PO2 ABG 54.4 mmHg (80.0-100.0); PO2 FiO2 Ratio Arterial Blood 2.18 %; Total Hemoglobin 14.6 g/dL (12.0-18.0)
[2024-06-06 05:39] LABS: Device BIPAP; Expiratory Pressure 6 cmH2O; Inspiratory Pressure 16 cmH2O; Modified Allen's Test Pass; Site Drawn RIGHT RADIAL
[2024-06-06 05:56] LABS: Hepatitis B Surface Antigen Negative (Negative)
[2024-06-06 06:13] LABS: Hepatitis B Surface Anti Res Negative; Hepatitis C Virus Antibody Negative (Negative)
[2024-06-06 06:25] LABS: Folic Acid 19.1 ng/mL (2.76->20)
[2024-06-06] MEDS: WATER IVPB ×2 (06:32→17:54)
[2024-06-06] MEDS: DEXTROSE 5% IVPB ×2 (06:32→17:54)
[2024-06-06] MEDS: ACYCLOVIR SODIUM IVPB ×2 (06:32→17:54)
[2024-06-06] MEDS: METOPROLOL TARTRATE 50 MG TAB PO ×2 (09:19→21:51)
[2024-06-06] MEDS: ATORVASTATIN 10 MG TABLET PO (09:19)
[2024-06-06] MEDS: FUROSEMIDE INJ 40 MG/4 ML VIAL 20 MG IV PUSH ×2 (09:20→16:43)
[2024-06-06] MEDS: LORATADINE 10 MG TABLET PO (09:20)
[2024-06-06] MEDS: PANTOPRAZOLE 40 MG TABLET PO (09:20)
[2024-06-06] MEDS: LACTIC ACID 12% LOTION 225 BTL 1 APPLIC TOPICAL ×2 (09:22→16:43)
[2024-06-06 09:28] LABS: INR 1.2; Prothrombin Time 15.9 Seconds (11.1-14.7); Vancomycin Random 13.4 ug/mL (10-20)
[2024-06-06 09:29] LABS: Partial Thromboplastin Time 32.1 Seconds (22.3-36.8)
[2024-06-06] MEDS: VANCOMYCIN 2,000 MG/NS 500 ML 2,000 MG/500 ML BAG 250 MG IVPB (10:24)
--- NOTE | 2024-06-06 12:19 | PM.PNCARD ---
Progress Note: A&P Assessment and Plan (1) Acute exacerbation of congestive heart failure: Code(s): I50.9 - Heart failure, unspecified Status: Acute Assessment and Plan: Elevated BNP noted 29,800 likely related to her RV enlargement respiratory distress (2) Non-ST elevation MS (NSTEMI): Code(s): I21.4 - Non-ST elevation (NSTEMI) myocardial infarction Status: Acute Assessment and Plan: Troponins were elevated however remained flat doubt related to any event attributable to ACS Her creatinine had doubled compared to previous Suspect acute on chronic renal failure as a component of elevated troponin No cardiac catheterization is planned at this point (3) Atrial fibrillation with rapid ventricular response: Code(s): I48.91 - Unspecified atrial fibrillation Status: Acute Assessment and Plan: Echocardiogram demonstrated a large RV and atrial enlargement and severe pulmonary hypertension suspect that she has refractory to cause her underlying AFib Was supposed to be on oral anticoagulation for pulmonary embolism as well as AFib Restart anticoagulation when okay with primary care team and team is doing the procedure (4) Pulmonary embolism: Qualifiers: Acute cor pulmonale presence: unspecified Chronicity: acute Pulmonary embolism type: other Qualified Code(s): I26.99 - Other pulmonary embolism without acute cor pulmonale Code(s): I26.99 - Other pulmonary embolism without acute cor pulmonale Status: Acute Assessment and Plan: Was supposed to be on anticoagulation for pulmonary embolism as well as AFib (5) Pulmonary emboli: Qualifiers: Acute cor pulmonale presence: unspecified Chronicity: acute Pulmonary embolism type: unspecified Qualified Code(s): I26.99 - Other pulmonary embolism without acute cor pulmonale Code(s): I26.99 - Other pulmonary embolism without acute cor pulmonale Status: Acute Assessment and Plan: Was supposed to be on anticoagulation for pulmonary embolism as well as AFib Currently going for procedure but requires holding anticoagulation Plan Restart anticoagulation when okay with primary care team Subjective Date/time seen: 06/06/24 12:19 The patient was seen this morning in room before she is ready to go for noncardiac procedure. Need for procedure outweighs risks. Patient cleared from cardiology standpoint to undergo it Interval history: Currently on BiPAP remains in atrial fibrillation Review of Systems Review of Systems: ROS unobtainable: Yes unobtainable due to medical condition Exam Narrative: Awake and alert can gauge orientation currently using BiPAP Resp: Other: Decreased breath sounds there is no rhonchi or wheezes noted Cardio: Other: Irregularly irregular rhythm GI: Other: Soft abdomen bowel sounds present Extrem: Other: Generalized edematous appearing legs No obvious Homans sign able to be elicited Objective Data Vital Signs Vital Signs: Vital Signs - 24 hr 06/05/24 12:24 06/05/24 14:00 06/05/24 14:09 Temperature Pulse Rate 104 H 105 H Respiratory Rate 20 Blood Pressure Pulse Oximetry 95 94 Oxygen Delivery BiPAP BiPAP Oxygen Flow Rate Fraction of Inspired Oxygen 06/05/24 16:00 06/05/24 16:00 06/05/24 16:00 Temperature Pulse Rate 96 116 H 113 H Respiratory Rate 20 20 Blood Pressure 121/91 H Pulse Oximetry 100 97 Oxygen Delivery BiPAP Oxygen Flow Rate Fraction of Inspired Oxygen 06/05/24 16:59 06/05/24 18:00 06/05/24 20:00 Temperature Pulse Rate 116 H 115 H Respiratory Rate 20 Blood Pressure Pulse Oximetry 97 97 Oxygen Delivery BiPAP BiPAP Oxygen Flow Rate Fraction of Inspired Oxygen 06/05/24 20:00 06/05/24 20:33 06/05/24 20:42 Temperature 36.6 C Pulse Rate 122 H 133 H 123 H Respiratory Rate 26 H Blood Pressure 88/54 L Pulse Oximetry 97 Oxygen Delivery Oxygen Flow Rate Fraction of Inspired Oxygen 06/05/24 21:01 06/05/24 22:00 06/05/24 23:44 Temperature 36.7 C Pulse Rate 116 H 95 102 H Respiratory Rate 23 H 24 H Blood Pressure 92/64 L Pulse Oximetry 93 97 Oxygen Delivery BiPAP Oxygen Flow Rate Fraction of Inspired Oxygen 06/06/24 00:00 06/06/24 00:00 06/06/24 01:10 Temperature Pulse Rate 100 104 H Respiratory Rate 18 Blood Pressure Pulse Oximetry 97 96 Oxygen Delivery BiPAP BiPAP Oxygen Flow Rate Fraction of Inspired Oxygen 06/06/24 02:04 06/06/24 04:00 06/06/24 04:00 Temperature Pulse Rate 99 107 H Respiratory Rate Blood Pressure Pulse Oximetry 97 Oxygen Delivery BiPAP Oxygen Flow Rate Fraction of Inspired Oxygen 06/06/24 05:24 06/06/24 05:34 06/06/24 05:58 Temperature 36.4 C L Pulse Rate 90 114 H 119 H Respiratory Rate 24 H 21 H Blood Pressure 96/64 L Pulse Oximetry 95 Oxygen Delivery Oxygen Flow Rate Fraction of Inspired Oxygen 06/06/24 08:01 06/06/24 08:02 06/06/24 09:19 Temperature 36.4 C L Pulse Rate 124 H 115 H 113 H Respiratory Rate 22 H 20 Blood Pressure 102/72 Pulse Oximetry 96 95 Oxygen Delivery BiPAP Oxygen Flow Rate Fraction of Inspired Oxygen 06/06/24 10:57 Temperature Pulse Rate Respiratory Rate Blood Pressure Pulse Oximetry 98 Oxygen Delivery Nasal Cannula Oxygen Flow Rate 2 Fraction of Inspired Oxygen Intake/Output Intake/Output: Intake & Output 06/03/24 06/04/24 06/05/24 06/06/24 23:59 23:59 23:59 23:59 Intake Total 740 200 300 Output Total 500 1550 Balance 240 -1350 300 Meds/Results Medications: Active Medications Generic Name Dose Route Start Last Admin Trade Name Freq PRN Reason Stop Dose Admin Acetaminophen 650 mg 06/03/24 18:29 06/04/24 23:58 Acetaminophen 325 Mg Tablet PO 650 mg Q4H PRN Administration Mild Pain (1-3) or Fever Apixaban 5 mg 06/04/24 21:00 06/05/24 08:30 Apixaban 5 Mg Tablet PO Not Given Q12HR BEVERLY Atorvastatin Calcium 10 mg 06/04/24 09:00 06/06/24 09:19 Atorvastatin 10 Mg Tablet PO 10 mg DAILY BEVERLY Administration Furosemide 20 mg 06/04/24 09:00 06/06/24 09:20 Furosemide Inj 40 Mg/4 Ml Vial IV PUSH 20 mg BID BEVERLY Administration Ampicillin Sodium 2 gm in 100 mls @ 200 mls/hr 06/05/24 18:00 06/06/24 09:21 Ampicillin 2 Gm/Ns 100 Ml IVPB 200 mls/hr Q8H BEVERLY Administration Ceftriaxone Sodium 2 gm in 100 mls @ 200 mls/hr 06/06/24 05:00 06/06/24 04:28 Rocephin 2 Gm/Ns 100 Ml IVPB 200 mls/hr Q12H BEVERLY Administration Acyclovir Sodium 1,265 mg/ 275.3 mls @ 250 mls/hr 06/06/24 07:00 06/06/24 06:32 Dextrose IVPB 250 mls/hr Q12H BEVERLY Administration Lactic Acid 1 applic 06/04/24 17:00 06/06/24 09:22 Lactic Acid 12% Lotion 225 Btl TOPICAL 1 applic BID BEVERLY Administration Loratadine 10 mg 06/04/24 09:00 06/06/24 09:20 Loratadine 10 Mg Tablet PO 10 mg DAILY BEVERLY Administration Metoprolol Tartrate 50 mg 06/04/24 21:00 06/06/24 09:19 Metoprolol Tartrate 50 Mg Tab PO 50 mg Q12HR BEVERLY Administration Miconazole Nitrate 1 applic 06/04/24 21:00 06/05/24 20:52 Miconazole Nitrate 2% Cream 30 Gm Tube TOPICAL 1 applic HS BEVERLY Administration Ondansetron HCl 4 mg 06/03/24 18:29 Ondansetron Inj 4 Mg/2 Ml Vial IV PUSH Q4H PRN Nausea Pantoprazole Sodium 40 mg 06/04/24 09:00 06/06/24 09:20 Pantoprazole 40 Mg Tablet PO 40 mg QAM BEVERLY Administration Sodium Chloride 6 ml 06/06/24 05:00 06/06/24 05:33 Sodium Chlor 3% 15 Ml Neb (Respiratory Therapy) INHALATION 06/08/24 05:01 6 ml DAILY@0500 BEVERLY Administration Vancomycin HCl 1 each 06/05/24 16:13 Vancomycin For Acute Kidney Injury IVPB PRN PRN Vancomycin Protocol Radiology Results: ITS Impressions Chest X-Ray 06/03/24 14:55 IMPRESSION: 1. Worsened airspace in the mid and lower lung zones, consistent with atelectasis versus pneumonia. 2. Small pleural effusions. 3. Cardiomegaly. Chest CTA 06/03/24 17:13 IMPRESSION: 1. No pulmonary embolism. 2. Bilateral moderate pleural effusion with atelectasis versus pneumonia. 3. Multiple nodules seen bilaterally which measures 5 mm. 6 months follow-up CT scan is advised. 4. Highly suggestive cholelithiasis. 5. Minimal fluid around the liver. Head CT 06/04/24 07:53 IMPRESSION: Cerebral atherosclerosis No acute intracranial finding Brain MRI 06/05/24 15:11 IMPRESSION: 1. Mildly increased T2-weighted signal intensity in the medial temporal lobes bilaterally suspicious for HSV encephalitis. 2. 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 Venous Doppler Study 06/05/24 16:41 IMPRESSION: No deep venous thrombosis within the visualized portions of the bilateral upper extremities, as detailed above. Upper Quadrant Ultrasound 06/05/24 16:44 IMPRESSION: Poor visualization of the gallbladder and pancreas secondary to overlying bowel gas. Limited visualization of the liver. Cross-sectional imaging is suggested if patient is clinically able. Labs Labs: Laboratory Results - last 24 hr 06/05/24 06/05/24 06/06/24 13:35 17:48 04:28 WBC 8.4 RBC 4.32 Hgb 13.5 Hct 42.9 MCV 99.3 MCH 31.3 MCHC 31.5 L RDW 14.6 H Plt Count 154 MPV 11.4 H PT INR APTT Puncture Site Right radial ABG pH 7.370 ABG pCO2 66.8 H* ABG pO2 60.8 L ABG PO2/FiO2 Ratio 2.43 ABG HCO3 37.7 H ABG O2 Saturation 89.8 L ABG O2 Content 18.4 ABG Base Excess 9.6 A-a Gradient 38.1 Oxyhemoglobin 90.4 Carboxyhemoglobin 1.5 Methemoglobin 0.2 Reduced Hemoglobin 7.9 H Total Hemoglobin 14.5 O2 Delivery Device Non-invasive vent O2 Liters/Min Not Reportable Vent Rate 18 FiO2 21 Expiratory Pressure 6 Inspiratory Pressure 14 Sodium 135 L Potassium 4.0 Chloride 94 L Carbon Dioxide > 40 H Anion Gap BUN 33 H D Creatinine 1.20 H Estim Creat Clear Calc 40 Estimated GFR 43 L Glucose 73 Calcium 9.4 Phosphorus 2.2 L Magnesium 1.9 Total Bilirubin 1.2 AST 115 H ALT 82 H Alkaline Phosphatase 89 Ammonia < 9 L Total Protein 6.0 L Albumin 3.2 L Vitamin B12 836.0 Vitamin D 25-Hydroxy 21.0 Folate 19.1 Urine Color Yellow Urine Appearance Clear Urine pH 5.5 Ur Specific [place] 1.013 Urine Protein Negative Urine Glucose (UA) Negative Urine Ketones Negative Ur Blood (Man) Negative Urine Nitrate Positive H Urine Bilirubin Negative Urine Urobilinogen 0.2 Leukocyte Esterase Rfl 1+ H Urine RBC 0-2 Urine WBC 21-50 H Ur Squamous Epith Cells None seen Urine Bacteria 4+ H Urine Casts 0-2 Random Vancomycin Hep Bs Antigen Negative Hep Bs Antibody Negative Hepatitis C Ab Screen Negative 06/06/24 06/06/24 05:13 09:04 WBC RBC Hgb Hct MCV MCH MCHC RDW Plt Count MPV PT 15.9 H INR 1.2 APTT 32.1 Puncture Site Right radial ABG pH 7.450 ABG pCO2 56.1 H ABG pO2 54.4 L ABG PO2/FiO2 Ratio 2.18 ABG HCO3 38.1 H ABG O2 Saturation 89.0 L ABG O2 Content 18.2 ABG Base Excess 11.7 A-a Gradient 57.2 Oxyhemoglobin 89.0 L Carboxyhemoglobin Methemoglobin Reduced Hemoglobin Total Hemoglobin 14.6 O2 Delivery Device Bipap O2 Liters/Min Senior Administrative Assistant Vent Rate FiO2 25 Expiratory Pressure 6 Inspiratory Pressure 16 Sodium Potassium Chloride Carbon Dioxide Anion Gap BUN Creatinine Estim Creat Clear Calc Estimated GFR Glucose Calcium Phosphorus Magnesium Total Bilirubin AST ALT Alkaline Phosphatase Ammonia Total Protein Albumin Vitamin B12 Vitamin D 25-Hydroxy Folate Urine Color Urine Appearance Urine pH Ur Specific [place] Urine Protein Urine Glucose (UA) Urine Ketones Ur Blood (Man) Urine Nitrate Urine Bilirubin Urine Urobilinogen Leukocyte Esterase Rfl Urine RBC Urine WBC Ur Squamous Epith Cells Urine Bacteria Urine Casts Random Vancomycin 13.4 Hep Bs Antigen Hep Bs Antibody Hepatitis C Ab Screen
[2024-06-06 13:33] LABS: Glucose CSF 54 mg/dL (40-70); Total Protein CSF 67 mg/dL (12-60)
[2024-06-06 13:47] LABS: Appearance CSF Clear (Clear); CSF source CSF; Color CSF Colorless (Colorless); Nucleated Cell CSF 0 /uL (0-5); Red Blood Cell CSF 6 (0-2)
--- NOTE | 2024-06-06 16:32 | PM.IMPN ---
Progress Note: A&P Assessment and Plan (1) Acute respiratory failure with hypoxia: Code(s): J96.01 - Acute respiratory failure with hypoxia Status: Acute Assessment and Plan: Likely due to acute on chronic congestive heart failure associated with atrial fibrillation and rapid ventricular rate Not getting metoprolol or Eliquis due to her mental status change. Heart rate poorly controlled now. Metoprolol has been resumed. Also with hypercarbia treated with BiPAP. ABG earlier this morning was 7.45/56/54 on bipap. Wean to room air today. Continue diuresis (2) Acute alteration in mental status: Code(s): R41.82 - Altered mental status, unspecified Status: Acute Assessment and Plan: This appears to be acute delirium probably related to acute respiratory failure. Consider also due to drug withdrawal as symptoms began at home with shakes and personality change and a feeling of her veins coursing (per phone conversation with daughter on 06/04/2024). Per other provider: On 06/04/24, daughter was in agreement with detox from opioids and benzodiazepines and avoiding these as long-term therapy CT brain showing no acute findings. TSH, B12 and folate normal. Ammonia <9. VitD level low so will replace. UA showing 1+ LE, +Nitrates and 21-50WBC. UCx ordered. CTA chest showing bilateral moderate pleural effusions with atelectasis vs PNA, probable cholelithiasis and fluid around liver Consider infectious process Brain MRI showing mildly increased T2 weighted signal intensity in the medial temporal lobes bilaterally suspicious for HSV encephalitis and small old infarct in left frontal lobe. Lovenox stopped and LP ordered. Started on broad spectrum abx and anti-viral agents. Neuro consulted LP showing normal opening pressure; 6 RBC, no WBC, Protein 67 and glucose 54. Continue current treatment plan. (3) Atrial fibrillation with rapid ventricular response: Code(s): I48.91 - Unspecified atrial fibrillation Status: Acute Assessment and Plan: Likely exacerbated by medication non adherence. Metoprolol was on hold while NPO. TSH normal. Echo showing EF 55-60%, RV pressure overload, severely enlarged RV with preserved RV fxn, mod-severe TR and severe pHTN. Eliquis was held for LP. Resume Eliquis (4) Acute exacerbation of congestive heart failure: Code(s): I50.9 - Heart failure, unspecified Status: Acute Assessment and Plan: Echo as above. Likely dCHF with right sided failure due to medication non adherence and atrial fibrillation with rapid ventricular rate. Continue diuresis (5) Non-ST elevation NH (NSTEMI): Code(s): I21.4 - Non-ST elevation (NSTEMI) myocardial infarction Status: Acute Assessment and Plan: Trop at 0.68 but flat. EKG showing AFib/RVR (123), low voltage, age-indeterminate anterior NH similar to prior EKG Echo as above. Suspect type 2 demand infarcts secondary to rapid atrial fibrillation Add ASA. Continue Lipitor and metoprolol (6) Acute on chronic kidney failure: Code(s): N17.9 - Acute kidney failure, unspecified; N18.9 - Chronic kidney disease, unspecified Status: Acute Assessment and Plan: Baseline Cr 1.2-1.3. Cr 2.4 on admission. KEESHA related to CHF, AFib/RVR, and respiratory failure. Also received contrast with CTA chest so mionitor for worsening renal function. Tolerating diuresis. Cr trending down to 1.2 Follow. Monitor UOP, electrolytes and renal fxn (7) Transaminitis: Code(s): R74.01 - Elevation of levels of liver transaminase levels Status: Acute Assessment and Plan: AST/ALT mildly elevated. and has been noted last month. Could be related to CHF. Hepatitis negative. SMITA US was very limited. LFTs better. Okay to continue Lpitor. Follow. Plan (+) DDimer - DDimer is 7. CTA negative for PE. UE and LE negative for DVT. DVT prophylaxis - Eliquis code status - full Subjective Date/time seen: 06/06/24 16:32 Interval history: 84yo female with dCHF, PE, pAFib, CKD and HTN here for shortness of breath. She feels much better. She denies SOB or CP. No n/v. Not on home o2. No hx of DORETHA. Exam Narrative: AF 97.8 129/73 120 20 92% RA Gen - NARD Chest -clear anteriorly and in the flanks. CV - irregular irregular; Tele showing AFib with RVR Abd -soft. Obese. NT. Ext -legs are large with 1+ pitting edema. Neuro - AOx4. Psych normal mood and affect Skin - Warm and dry Objective Data Vital Signs Vital Signs: Vital Signs - 24 hr 06/05/24 16:59 06/05/24 18:00 06/05/24 20:00 Temperature Pulse Rate 116 H 115 H Respiratory Rate 20 Blood Pressure Pulse Oximetry 97 97 Oxygen Delivery BiPAP BiPAP Oxygen Flow Rate Fraction of Inspired Oxygen 06/05/24 20:00 06/05/24 20:33 06/05/24 20:42 Temperature 97.8 F Pulse Rate 122 H 133 H 123 H Respiratory Rate 26 H Blood Pressure 88/54 L Pulse Oximetry 97 Oxygen Delivery Oxygen Flow Rate Fraction of Inspired Oxygen 06/05/24 21:01 06/05/24 22:00 06/05/24 23:44 Temperature 98.0 F Pulse Rate 116 H 95 102 H Respiratory Rate 23 H 24 H Blood Pressure 92/64 L Pulse Oximetry 93 97 Oxygen Delivery BiPAP Oxygen Flow Rate Fraction of Inspired Oxygen 06/06/24 00:00 06/06/24 00:00 06/06/24 01:10 Temperature Pulse Rate 100 104 H Respiratory Rate 18 Blood Pressure Pulse Oximetry 97 96 Oxygen Delivery BiPAP BiPAP Oxygen Flow Rate Fraction of Inspired Oxygen 06/06/24 02:04 06/06/24 04:00 06/06/24 04:00 Temperature Pulse Rate 99 107 H Respiratory Rate Blood Pressure Pulse Oximetry 97 Oxygen Delivery BiPAP Oxygen Flow Rate Fraction of Inspired Oxygen 06/06/24 05:24 06/06/24 05:34 06/06/24 05:58 Temperature 97.5 F L Pulse Rate 90 114 H 119 H Respiratory Rate 24 H 21 H Blood Pressure 96/64 L Pulse Oximetry 95 Oxygen Delivery Oxygen Flow Rate Fraction of Inspired Oxygen 06/06/24 08:00 06/06/24 08:00 06/06/24 08:01 Temperature 97.5 F L Pulse Rate 85 124 H Respiratory Rate 22 H Blood Pressure 102/72 Pulse Oximetry 95 96 Oxygen Delivery BiPAP Oxygen Flow Rate Fraction of Inspired Oxygen 06/06/24 08:02 06/06/24 09:19 06/06/24 10:00 Temperature Pulse Rate 115 H 113 H 101 H Respiratory Rate 20 Blood Pressure Pulse Oximetry 95 Oxygen Delivery BiPAP Oxygen Flow Rate Fraction of Inspired Oxygen 06/06/24 10:57 06/06/24 12:00 06/06/24 12:00 Temperature 97.9 F Pulse Rate 90 Respiratory Rate 22 H Blood Pressure 129/73 Pulse Oximetry 98 93 96 Oxygen Delivery Nasal Cannula Nasal Cannula Oxygen Flow Rate 2 2 Fraction of Inspired Oxygen 06/06/24 12:00 06/06/24 14:00 06/06/24 14:07 Temperature Pulse Rate 106 H 115 H Respiratory Rate Blood Pressure Pulse Oximetry 96 Oxygen Delivery Nasal Cannula Oxygen Flow Rate 2 Fraction of Inspired Oxygen 06/06/24 15:03 Temperature Pulse Rate Respiratory Rate Blood Pressure Pulse Oximetry 95 Oxygen Delivery Nasal Cannula Oxygen Flow Rate 1 Fraction of Inspired Oxygen Intake/Output Intake/Output: Intake & Output 06/03/24 06/04/24 06/05/24 06/06/24 23:59 23:59 23:59 23:59 Intake Total 740 975.3 1275.3 Output Total 500 1550 Balance 240 -574.7 1275.3 Meds/Results Medications: Active Medications Generic Name Dose Route Start Last Admin Trade Name Freq PRN Reason Stop Dose Admin Acetaminophen 650 mg 06/03/24 18:29 06/04/24 23:58 Acetaminophen 325 Mg Tablet PO 650 mg Q4H PRN Administration Mild Pain (1-3) or Fever Apixaban 5 mg 06/04/24 21:00 06/05/24 08:30 Apixaban 5 Mg Tablet PO Not Given Q12HR BEVERLY Atorvastatin Calcium 10 mg 06/04/24 09:00 06/06/24 09:19 Atorvastatin 10 Mg Tablet PO 10 mg DAILY BEVERLY Administration Furosemide 20 mg 06/04/24 09:00 06/06/24 09:20 Furosemide Inj 40 Mg/4 Ml Vial IV PUSH 20 mg BID BEVERLY Administration Ampicillin Sodium 2 gm in 100 mls @ 200 mls/hr 06/05/24 18:00 06/06/24 09:51 Ampicillin 2 Gm/Ns 100 Ml IVPB Infused Q8H BEVERLY Infusion Ceftriaxone Sodium 2 gm in 100 mls @ 200 mls/hr 06/06/24 05:00 06/06/24 04:58 Rocephin 2 Gm/Ns 100 Ml IVPB Infused Q12H BEVERLY Infusion Acyclovir Sodium 1,265 mg/ 275.3 mls @ 250 mls/hr 06/06/24 07:00 06/06/24 07:39 Dextrose IVPB Infused Q12H BEVERLY Infusion Lactic Acid 1 applic 06/04/24 17:00 06/06/24 09:22 Lactic Acid 12% Lotion 225 Btl TOPICAL 1 applic BID BEVERLY Administration Loratadine 10 mg 06/04/24 09:00 06/06/24 09:20 Loratadine 10 Mg Tablet PO 10 mg DAILY BEVERLY Administration Metoprolol Tartrate 50 mg 06/04/24 21:00 06/06/24 09:19 Metoprolol Tartrate 50 Mg Tab PO 50 mg Q12HR BEVERLY Administration Miconazole Nitrate 1 applic 06/04/24 21:00 06/05/24 20:52 Miconazole Nitrate 2% Cream 30 Gm Tube TOPICAL 1 applic HS BEVERLY Administration Ondansetron HCl 4 mg 06/03/24 18:29 Ondansetron Inj 4 Mg/2 Ml Vial IV PUSH Q4H PRN Nausea Pantoprazole Sodium 40 mg 06/04/24 09:00 06/06/24 09:20 Pantoprazole 40 Mg Tablet PO 40 mg QAM BEVERLY Administration Sodium Chloride 6 ml 06/06/24 05:00 06/06/24 05:33 Sodium Chlor 3% 15 Ml Neb (Respiratory Therapy) INHALATION 06/08/24 05:01 6 ml DAILY@0500 BEVERLY Administration Vancomycin HCl 1 each 06/05/24 16:13 Vancomycin For Acute Kidney Injury IVPB PRN PRN Vancomycin Protocol Radiology Results: ITS Impressions Chest X-Ray 06/03/24 14:55 IMPRESSION: 1. Worsened airspace in the mid and lower lung zones, consistent with atelectasis versus pneumonia. 2. Small pleural effusions. 3. Cardiomegaly. Chest CTA 06/03/24 17:13 IMPRESSION: 1. No pulmonary embolism. 2. Bilateral moderate pleural effusion with atelectasis versus pneumonia. 3. Multiple nodules seen bilaterally which measures 5 mm. 6 months follow-up CT scan is advised. 4. Highly suggestive cholelithiasis. 5. Minimal fluid around the liver. Head CT 06/04/24 07:53 IMPRESSION: Cerebral atherosclerosis No acute intracranial finding Brain MRI 06/05/24 15:11 IMPRESSION: 1. Mildly increased T2-weighted signal intensity in the medial temporal lobes bilaterally suspicious for HSV encephalitis. 2. 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 Venous Doppler Study 06/05/24 16:41 IMPRESSION: No deep venous thrombosis within the visualized portions of the bilateral upper extremities, as detailed above. Upper Quadrant Ultrasound 06/05/24 16:44 IMPRESSION: Poor visualization of the gallbladder and pancreas secondary to overlying bowel gas. Limited visualization of the liver. Cross-sectional imaging is suggested if patient is clinically able. Lumbar Puncture Fluoroscopy 06/06/24 13:53 IMPRESSION: 1. Successful fluoro-guided lumbar puncture. Labs Labs: Laboratory Results - last 24 hr 06/05/24 06/06/24 06/06/24 17:48 04:28 05:13 WBC 8.4 RBC 4.32 Hgb 13.5 Hct 42.9 MCV 99.3 MCH 31.3 MCHC 31.5 L RDW 14.6 H Plt Count 154 MPV 11.4 H PT INR APTT Puncture Site Right radial ABG pH 7.450 ABG pCO2 56.1 H ABG pO2 54.4 L ABG PO2/FiO2 Ratio 2.18 ABG HCO3 38.1 H ABG O2 Saturation 89.0 L ABG O2 Content 18.2 ABG Base Excess 11.7 A-a Gradient 57.2 Oxyhemoglobin 89.0 L Total Hemoglobin 14.6 O2 Delivery Device Bipap O2 Liters/Min [employer] FiO2 25 Expiratory Pressure 6 Inspiratory Pressure 16 Sodium 135 L Potassium 4.0 Chloride 94 L Carbon Dioxide > 40 H Anion Gap BUN 33 H D Creatinine 1.20 H Estim Creat Clear Calc 40 Estimated GFR 43 L Glucose 73 Calcium 9.4 Phosphorus 2.2 L Magnesium 1.9 Total Bilirubin 1.2 AST 115 H ALT 82 H Alkaline Phosphatase 89 Ammonia < 9 L Total Protein 6.0 L Albumin 3.2 L Vitamin B12 836.0 Vitamin D 25-Hydroxy 21.0 Folate 19.1 Urine Color Yellow Urine Appearance Clear Urine pH 5.5 Ur Specific [place] 1.013 Urine Protein Negative Urine Glucose (UA) Negative Urine Ketones Negative Ur Blood (Man) Negative Urine Nitrate Positive H Urine Bilirubin Negative Urine Urobilinogen 0.2 Leukocyte Esterase Rfl 1+ H Urine RBC 0-2 Urine WBC 21-50 H Ur Squamous Epith Cells None seen Urine Bacteria 4+ H Urine Casts 0-2 CSF Source CSF Appearance CSF Color CSF RBC CSF Tot Nucleated Cells CSF Glucose CSF Total Protein Random Vancomycin Hep Bs Antigen Negative Hep Bs Antibody Negative Hepatitis C Ab Screen Negative 06/06/24 06/06/24 09:04 13:07 WBC RBC Hgb Hct MCV MCH MCHC RDW Plt Count MPV PT 15.9 H INR 1.2 APTT 32.1 Puncture Site ABG pH ABG pCO2 ABG pO2 ABG PO2/FiO2 Ratio ABG HCO3 ABG O2 Saturation ABG O2 Content ABG Base Excess A-a Gradient Oxyhemoglobin Total Hemoglobin O2 Delivery Device O2 Liters/Min FiO2 Expiratory Pressure Inspiratory Pressure Sodium Potassium Chloride Carbon Dioxide Anion Gap BUN Creatinine Estim Creat Clear Calc Estimated GFR Glucose Calcium Phosphorus Magnesium Total Bilirubin AST ALT Alkaline Phosphatase Ammonia Total Protein Albumin Vitamin B12 Vitamin D 25-Hydroxy Folate Urine Color Urine Appearance Urine pH Ur Specific [place] Urine Protein Urine Glucose (UA) Urine Ketones Ur Blood (Man) Urine Nitrate Urine Bilirubin Urine Urobilinogen Leukocyte Esterase Rfl Urine RBC Urine WBC Ur Squamous Epith Cells Urine Bacteria Urine Casts CSF Source Csf CSF Appearance Clear CSF Color Colorless CSF RBC 6 H CSF Tot Nucleated Cells 0 CSF Glucose 54 CSF Total Protein 67 H Random Vancomycin 13.4 Hep Bs Antigen Hep Bs Antibody Hepatitis C Ab Screen
[2024-06-06] MEDS: POTASSIUM/PHOSPHORUS/SODIUM 1.5 GM PACKET 1 PACKET PO (17:46)
[2024-06-06] MEDS: ASPIRIN 81 MG CHEWABLE TABLET PO (17:46)
[2024-06-06] MEDS: MICONAZOLE NITRATE 2% CREAM 30 GM TUBE 1 APPLIC TOPICAL (21:51)
[2024-06-06] MEDS: APIXABAN 5 MG TABLET PO (21:51)
[2024-06-07] VITALS (24 sets, daily range): BP systolic 104–130; BP diastolic 55–72; PULSE 101–130; RESP 16–25; TEMP 36.6–37.2; O2SAT 78–98
[2024-06-07] MEDS: AMPICILLIN 2 GM/NS 100 ML 2 GM/100 ML BAG IVPB ×3 (02:30→17:47)
[2024-06-07 05:30] LABS: Hemoglobin 12.5 g/dL (12.0-15.0); Mean Corpuscular HGB Conc 30.5 g/dl (32-36); Mean Corpuscular Hemoglobin 30.6 pg (26-34); Mean Corpuscular Volume 100.5 fl (80-100); Mean Platelet Volume 11.1 fl (7.4-10.4); Platelet Count Result 129 k/mm3 (150-375); Red Blood Count 4.08 M/mm3 (4.2-5.4); Red Cell Distribution Width 14.9 % (11.5-14.5)
[2024-06-07] MEDS: SODIUM CHLOR 3% 15 ML NEB (RESPIRATORY THERAPY) 6 ML INHALATION (05:31)
[2024-06-07] MEDS: cefTRIAXone 2 GM/NS 100 ML 2 GM/100 ML BAG IVPB ×2 (05:55→17:46)
[2024-06-07 05:58] LABS: Alanine Aminotransferase 59 U/L (6-35); Alkaline Phosphatase 87 U/L (38-126); Aspartate Amino Transferase 63 U/L (14-36); Bilirubin,Total 0.9 mg/dL (0.2-1.3); Blood Urea Nitrogen 26 mg/dL (7-17); Calcium 8.8 mg/dL (8.4-10.2); Chloride 93 mmol/L (98-107); Estimated CRCL calculation 43 ml/min; Estimated Glomerular Filt Rate 48; Glucose 93 mg/dL (65-110); Magnesium 1.7 mg/dL (1.6-2.3); Phosphorus 1.9 mg/dL (2.5-4.5); Potassium 3.1 mmol/L (3.4-5.0); Sodium 135 mmol/L (137-145)
[2024-06-07 06:21] LABS: Anion Gap 4 mmol/L (4-12); Carbon Dioxide 38 mmol/L (22-30)
[2024-06-07] MEDS: DEXTROSE 5% IVPB (06:36)
[2024-06-07] MEDS: WATER IVPB (06:36)
[2024-06-07] MEDS: ACYCLOVIR SODIUM IVPB (06:36)
[2024-06-07] MEDS: PANTOPRAZOLE 40 MG TABLET PO (09:04)
[2024-06-07] MEDS: POTASSIUM CHLORIDE 20 MEQ ER TABLET 40 MEQ PO (09:05)
[2024-06-07] MEDS: CHOLECALCIFEROL 1,000 UNITS TABLET 1000 UNITS PO (09:05)
[2024-06-07] MEDS: APIXABAN 5 MG TABLET PO ×2 (09:05→21:15)
[2024-06-07] MEDS: LORATADINE 10 MG TABLET PO (09:05)
[2024-06-07] MEDS: ASPIRIN 81 MG CHEWABLE TABLET PO (09:05)
[2024-06-07] MEDS: FUROSEMIDE INJ 40 MG/4 ML VIAL 20 MG IV PUSH ×2 (09:05→17:45)
[2024-06-07] MEDS: ATORVASTATIN 10 MG TABLET PO (09:05)
[2024-06-07] MEDS: METOPROLOL TARTRATE 50 MG TAB PO ×2 (09:05→21:15)
[2024-06-07] MEDS: POTASSIUM/PHOSPHORUS/SODIUM 1.5 GM PACKET 1 PACKET PO (09:06)
[2024-06-07] MEDS: LACTIC ACID 12% LOTION 225 BTL 1 APPLIC TOPICAL ×2 (09:07→18:02)
[2024-06-07 09:48] LABS: Vancomycin Random 17.9 ug/mL (10-20)
[2024-06-07] MEDS: MAGNESIUM SULF 2 GM/WATER 50ML 2 GM/50 ML BAG IVPB (10:09)
[2024-06-07] MEDS: VANCOMYCIN 2,000 MG/NS 500 ML 2,000 MG/500 ML BAG 250 MG IVPB (10:11)
--- NOTE | 2024-06-07 10:19 | WPDNEURCNPN ---
Assessment and Plan Assessment and plan (1) Acute alteration in mental status: Code(s): R41.82 - Altered mental status, unspecified Status: Acute (2) Atrial fibrillation with rapid ventricular response: Code(s): I48.91 - Unspecified atrial fibrillation Status: Acute Plan possible encephalitis ,meningitis patient, is being covered with the antibiotics and antiviral therapeutic regimen, at present treatment will be continued as such untilSpinal fluid studies are completed. In addition her general medical care will be continued as such. She is off the Apixaban at present, within next 48hours that can be restarted. Consult date: 06/07/24 HPI: Klaudia Larry is a 84 year old female Admitted to the hospital through the emergency room for the complaint of difficulties in breathing in addition to the complaints of chest pain patient was reportedly carrying the diagnosis of pulmonary embolism, pneumonia, atrial fibrillation, all diagnosed in April 2024 and subsequent placement in the group home she was brought to the ER because of the low saturation ,occasional chest pain with purplish nails occasionally, on initial evaluation it was documented that she is allergic to pravastatin and alendronate and has been taking multiple medications,previous multiple medical problems included hyperventilation syndrome, chronic low back pain with diffuse idiopathic skeletal hyperostosis, peripheral vascular disease, and history of vertebroplasty, carries full code status, is smoking 2 packs per day for 40 years smoked 10 and smoking pack years of 20 but at present former smoker and never alcohol intake. On initial evaluation in the emergency room she was documented to have no focal neurological deficit with normal vital signs. At present she is being treated for the acute on chronic congestive heart failure with atrial fibrillation and rapid ventricular heart rate but not getting Eliquis because of her mental status changes and spinal tap. She has had the acute delirium presumed to be acute respiratory failure in addition to the drug withdrawal. She is being followed by the ammonia refrigeration technician as well. 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 was continued as such. At present she is receiving acyclovir, vancomycin ceftriaxone ampicillin in addition to other medications. Review of Systems Review of Systems: All systems reviewed & are unremarkable except as noted in HPI and below PMFSH Past Medical History Medical History Spondylosis with myelopathy, lumbar region Schatzki's ring Pre-diabetes Opioid dependence with current use Obesity hypoventilation syndrome Morbid obesity due to excess calories Keratolysis exfoliativa Esophageal web Anxiety Chronic kidney disease, stage 3a Diffuse idiopathic skeletal hyperostosis Allergic sinusitis Chronic low back pain Generalized anxiety disorder Gastro-esophageal reflux disease without esophagitis Body mass index (BMI) 40.0-44.9, adult Peripheral vascular disease, unspecified History of tobacco use Surgical History Surgical History History of esophageal dilatation History of meniscectomy of right knee History of vertebroplasty History of colonoscopy with polypectomy Family History Family History Mother Asthma Patient's mother is in good health Sibling Patient's sister is in good health Patient's brother is in good health Other Family history of arthritis Social History Social History Social History: Surrogate medical decision maker: Mami Burns, daughter. Code status: Full code. Smoking packs per day: 2 Smoking cigarettes per day: 40.0 Years smoked: 10 Smoking pack-years: 20.00 Smoking status: Former smoker Second hand tobacco smoke exposure: No Alcohol intake: unknown Substance use: never Substance use type: does not use Do You Feel Safe in your Home?: Yes Lack of Transportation: No Lack of Food: Never True Current Housing: I Have Housing Concerned About Future Housing: No Difficulty Paying Gas/Electric Bills: No Difficulty Paying for Meds: No Currently Unemployed: No Education: High School Diploma/GED Difficulty w/ Childcare or Family Care: No Living arrangements: with family Occupation/Education: retired Spiritual care concerns: No Agree to blood products: Yes Meds Home Medications and Allergies Home Medications ?Medication ?Instructions ?Recorded ?Confirmed ?Type loratadine 10 mg capsule 10 mg PO DAILY #100 caps 02/24/24 06/04/24 Rx losartan 25 mg tablet 25 mg PO DAILY #90 tabs 04/13/24 06/04/24 Rx omeprazole 40 mg capsule,delayed 40 mg PO DAILY 04/30/24 06/04/24 History release apixaban 5 mg tablet (Eliquis) 5 mg PO Q12HR #30 tabs 05/04/24 06/04/24 Rx clonazepam 0.5 mg tablet 0.5 mg PO DAILY PRN panic 05/04/24 06/04/24 Rx attack(s) #10 tabs doxycycline hyclate 100 mg tablet 100 mg PO Q12HR #1 tablet 05/04/24 06/04/24 Rx furosemide 20 mg tablet (Lasix) 20 mg PO DAILY #10 tabs 05/04/24 06/04/24 Rx metoprolol tartrate 50 mg tablet 50 mg PO Q12HR #30 tabs 05/04/24 06/04/24 Rx tramadol 50 mg tablet 50 mg PO DAILY #10 tabs 05/04/24 06/04/24 Rx atorvastatin 10 mg tablet 10 mg PO DAILY #90 tabs 05/30/24 06/04/24 Rx Allergies Allergy/AdvReac Type Severity Reaction Status Date / Time alendronate sodium Allergy Unknown gastritis Verified 06/03/24 12:57 pravastatin Allergy Unknown unknown Verified 06/03/24 12:57 Vital Signs Vital Signs - 24 hr 06/06/24 10:57 06/06/24 12:00 06/06/24 12:00 Temperature 36.6 C Pulse Rate 90 Pulse Rate [With Activity During Therapy Session] Respiratory Rate 22 H Blood Pressure 129/73 Pulse Oximetry 98 93 96 Pulse Oximetry [With Activity During Therapy Session] Oxygen Delivery Nasal Cannula Nasal Cannula Oxygen Flow Rate 2 2 06/06/24 12:00 06/06/24 14:00 06/06/24 14:07 Temperature Pulse Rate 106 H 115 H Pulse Rate [With Activity During Therapy Session] Respiratory Rate Blood Pressure Pulse Oximetry 96 Pulse Oximetry [With Activity During Therapy Session] Oxygen Delivery Nasal Cannula Oxygen Flow Rate 2 06/06/24 15:03 06/06/24 16:00 06/06/24 16:00 Temperature 36.5 C Pulse Rate 118 H 115 H Pulse Rate [With Activity During Therapy Session] Respiratory Rate 20 Blood Pressure 150/93 H Pulse Oximetry 95 91 Pulse Oximetry [With Activity During Therapy Session] Oxygen Delivery Nasal Cannula Oxygen Flow Rate 1 06/06/24 16:31 06/06/24 18:00 06/06/24 20:00 Temperature Pulse Rate 120 H 123 H Pulse Rate [With Activity During Therapy Session] Respiratory Rate 20 Blood Pressure Pulse Oximetry 92 95 Pulse Oximetry [With Activity During Therapy Session] Oxygen Delivery Room Air Nasal Cannula Oxygen Flow Rate 2 06/06/24 20:00 06/06/24 20:28 06/06/24 21:25 Temperature 37.1 C Pulse Rate 136 H 118 H 125 H Pulse Rate [With Activity During Therapy Session] Respiratory Rate 22 H 26 H Blood Pressure 155/60 H Pulse Oximetry 96 99 Pulse Oximetry [With Activity During Therapy Session] Oxygen Delivery BiPAP Oxygen Flow Rate 06/06/24 21:51 06/06/24 22:00 06/07/24 00:00 Temperature Pulse Rate 124 H 127 H Pulse Rate [With Activity During Therapy Session] Respiratory Rate Blood Pressure Pulse Oximetry 98 Pulse Oximetry [With Activity During Therapy Session] Oxygen Delivery Nasal Cannula Oxygen Flow Rate 2 06/07/24 00:27 06/07/24 02:00 06/07/24 04:00 Temperature 37.2 C Pulse Rate 107 H 110 H 101 H Pulse Rate [With Activity During Therapy Session] Respiratory Rate 21 H Blood Pressure 114/67 Pulse Oximetry 96 Pulse Oximetry [With Activity During Therapy Session] Oxygen Delivery Oxygen Flow Rate 06/07/24 04:00 06/07/24 04:57 06/07/24 05:36 Temperature 36.6 C Pulse Rate 105 H 103 H Pulse Rate [With Activity During Therapy Session] Respiratory Rate 18 20 Blood Pressure 129/64 Pulse Oximetry 97 97 Pulse Oximetry [With Activity During Therapy Session] Oxygen Delivery Nasal Cannula Oxygen Flow Rate 2 06/07/24 05:44 06/07/24 06:00 06/07/24 06:33 Temperature Pulse Rate 107 H 109 H Pulse Rate [With Activity During Therapy Session] Respiratory Rate 20 Blood Pressure Pulse Oximetry 98 Pulse Oximetry [With Activity During Therapy Session] Oxygen Delivery Nasal Cannula Oxygen Flow Rate 2 06/07/24 06:37 06/07/24 08:00 06/07/24 09:05 Temperature 36.6 C Pulse Rate 122 H 119 H Pulse Rate [With Activity During Therapy Session] Respiratory Rate 20 Blood Pressure 130/62 Pulse Oximetry 90 Pulse Oximetry [With Activity During Therapy Session] Oxygen Delivery Room Air Oxygen Flow Rate 06/07/24 09:15 06/07/24 09:30 Temperature Pulse Rate Pulse Rate [With Activity During Therapy Session] 130 H Respiratory Rate Blood Pressure Pulse Oximetry Pulse Oximetry [With Activity During Therapy Session] 78 L Oxygen Delivery Nasal Cannula Room Air Oxygen Flow Rate 2 Exam Narrative: On examination today she is awake alert cooperative in no obvious acute distress, sitting in the chair following all commands appropriately without evidence of dysphasia or dysarthria, head normocephalic, with no cranial bruit, neck supple with no cervical bruit, heart regular with no murmur, lungs clear, abdomen is soft protuberant, neurologically she is awake alert she was able to carry on the conversation ,her speech was not dysphasic not dysarthric not dysphonic, pupils were round regular birch of the vision were full to the finger confrontation, extraocular movements full with no nystagmus ,facial sensation intact, face symmetrical, she was able to protrude tongue out with no deviation, motor examination revealed her to have fairly normal strength in upper extremities with no increased tone no drift against gravity reflexes were sluggish plantars were downgoing and there was no evidence of ataxia dysmetria or in upper extremities, Results Labs 06/07/24 05:05 06/07/24 05:05 Labs: Short CBC 06/07/24 Range/Units 05:05 WBC 8.0 (4.5-10.0) K/mm3 Hgb 12.5 (12.0-15.0) g/dL Hct 41.0 (37.0-47.0) % Plt Count 129 L (150-375) k/mm3 BMP 06/07/24 05:05 Sodium 135 L Potassium 3.1 L Chloride 93 L Carbon Dioxide 38 H BUN 26 H Creatinine 1.09 H Glucose 93 Calcium 8.8 Liver Function 06/07/24 Range/Units 05:05 Total Bilirubin 0.9 (0.2-1.3) mg/dL AST 63 H (14-36) U/L ALT 59 H (6-35) U/L Alkaline Phosphatase 87 (38-126) U/L Albumin 3.0 L (3.5-5.1) g/dL
--- NOTE | 2024-06-07 14:09 | PM.PNCARD ---
Progress Note: A&P Assessment and Plan (1) Acute alteration in mental status: Code(s): R41.82 - Altered mental status, unspecified Status: Acute Assessment and Plan: This seems to be improved and whether it is bringing her CO2 down or treating the question of brain infection I am not sure. (2) Acute exacerbation of congestive heart failure: Code(s): I50.9 - Heart failure, unspecified Status: Acute Assessment and Plan: Seems to be better on the Lasix and the and somewhat rate control for the atrial fibrillation (3) Acute on chronic kidney failure: Code(s): N17.9 - Acute kidney failure, unspecified; N18.9 - Chronic kidney disease, unspecified Status: Acute Assessment and Plan: Improved. Improved with diuresis so possibly has venous congestion which has been improved. (4) Non-ST elevation UT (NSTEMI): Code(s): I21.4 - Non-ST elevation (NSTEMI) myocardial infarction Status: Acute Assessment and Plan: Think it is a type 2 UT secondary to the stress of the intercurrent infection which brought for this condition that brought her in. (5) Atrial fibrillation with rapid ventricular response: Code(s): I48.91 - Unspecified atrial fibrillation Status: Acute Assessment and Plan: Rate control. I think she is okay to resume her anticoagulation as long as there is no other invasive tests that needs to be done Plan As above. I am trying to locate the echo that was done at this admission Time Spent With Patient Time: 35 Subjective Date/time seen: 06/07/24 14:09 Interval history: Patient's mental status seems to have improved. She has been on BiPAP overnight and she has also had an LP recently and there was some question of encephalitis/meningitis. She denies chest pain shortness of breath or breathing issues. Review of Systems Review of Systems: All systems reviewed & are unremarkable except as noted in HPI and below (HPI) Exam Const: Other: Alert oriented x3 Neck: Other: No jugular venous distention Resp: Other: Coarse breath sounds bilaterally Cardio: Other: S1-S2 irregular Neuro: Other: AO x3. No focal deficits Extrem: Other: Minimal edema Objective Data Vital Signs Vital Signs: Vital Signs - 24 hr 06/06/24 15:03 06/06/24 16:00 06/06/24 16:00 Temperature 36.5 C Pulse Rate 118 H 115 H Pulse Rate [With Activity During Therapy Session] Respiratory Rate 20 Blood Pressure 150/93 H Pulse Oximetry 95 91 Pulse Oximetry [With Activity During Therapy Session] Oxygen Delivery Nasal Cannula Oxygen Flow Rate 1 Fraction of Inspired Oxygen 06/06/24 16:31 06/06/24 18:00 06/06/24 20:00 Temperature Pulse Rate 120 H 123 H Pulse Rate [With Activity During Therapy Session] Respiratory Rate 20 Blood Pressure Pulse Oximetry 92 95 Pulse Oximetry [With Activity During Therapy Session] Oxygen Delivery Room Air Nasal Cannula Oxygen Flow Rate 2 Fraction of Inspired Oxygen 06/06/24 20:00 06/06/24 20:28 06/06/24 21:25 Temperature 37.1 C Pulse Rate 136 H 118 H 125 H Pulse Rate [With Activity During Therapy Session] Respiratory Rate 22 H 26 H Blood Pressure 155/60 H Pulse Oximetry 96 99 Pulse Oximetry [With Activity During Therapy Session] Oxygen Delivery BiPAP Oxygen Flow Rate Fraction of Inspired Oxygen 06/06/24 21:51 06/06/24 22:00 06/07/24 00:00 Temperature Pulse Rate 124 H 127 H Pulse Rate [With Activity During Therapy Session] Respiratory Rate Blood Pressure Pulse Oximetry 98 Pulse Oximetry [With Activity During Therapy Session] Oxygen Delivery Nasal Cannula Oxygen Flow Rate 2 Fraction of Inspired Oxygen 06/07/24 00:27 06/07/24 02:00 06/07/24 04:00 Temperature 37.2 C Pulse Rate 107 H 110 H 101 H Pulse Rate [With Activity During Therapy Session] Respiratory Rate 21 H Blood Pressure 114/67 Pulse Oximetry 96 Pulse Oximetry [With Activity During Therapy Session] Oxygen Delivery Oxygen Flow Rate Fraction of Inspired Oxygen 06/07/24 04:00 06/07/24 04:57 06/07/24 05:36 Temperature 36.6 C Pulse Rate 105 H 103 H Pulse Rate [With Activity During Therapy Session] Respiratory Rate 18 20 Blood Pressure 129/64 Pulse Oximetry 97 97 Pulse Oximetry [With Activity During Therapy Session] Oxygen Delivery Nasal Cannula Oxygen Flow Rate 2 Fraction of Inspired Oxygen 06/07/24 05:44 06/07/24 06:00 06/07/24 06:33 Temperature Pulse Rate 107 H 109 H Pulse Rate [With Activity During Therapy Session] Respiratory Rate 20 Blood Pressure Pulse Oximetry 98 Pulse Oximetry [With Activity During Therapy Session] Oxygen Delivery Nasal Cannula Oxygen Flow Rate 2 Fraction of Inspired Oxygen 06/07/24 06:37 06/07/24 08:00 06/07/24 08:00 Temperature 36.6 C Pulse Rate 122 H Pulse Rate [With Activity During Therapy Session] Respiratory Rate 20 Blood Pressure 130/62 Pulse Oximetry 90 Pulse Oximetry [With Activity During Therapy Session] Oxygen Delivery Room Air Room Air Oxygen Flow Rate Fraction of Inspired Oxygen 06/07/24 08:00 06/07/24 09:05 06/07/24 09:15 Temperature Pulse Rate 116 H 119 H Pulse Rate [With Activity During Therapy Session] 130 H Respiratory Rate Blood Pressure Pulse Oximetry Pulse Oximetry [With Activity During Therapy Session] 78 L Oxygen Delivery Nasal Cannula Oxygen Flow Rate 2 Fraction of Inspired Oxygen 06/07/24 09:30 06/07/24 10:00 06/07/24 11:59 Temperature 36.8 C Pulse Rate 130 H 102 H Pulse Rate [With Activity During Therapy Session] Respiratory Rate 16 Blood Pressure 104/55 L Pulse Oximetry 98 Pulse Oximetry [With Activity During Therapy Session] Oxygen Delivery Room Air Oxygen Flow Rate Fraction of Inspired Oxygen 06/07/24 12:00 06/07/24 12:00 06/07/24 13:52 Temperature Pulse Rate 103 H 107 H Pulse Rate [With Activity During Therapy Session] Respiratory Rate Blood Pressure Pulse Oximetry 98 Pulse Oximetry [With Activity During Therapy Session] Oxygen Delivery Nasal Cannula Oxygen Flow Rate 2 Fraction of Inspired Oxygen 25 Intake/Output Intake/Output: Intake & Output 06/04/24 06/05/24 06/06/24 06/07/24 23:59 23:59 23:59 23:59 Intake Total 740 975.3 2190.6 1915.3 Output Total 500 1550 250 800 Balance 240 -574.7 1940.6 1115.3 Meds/Results Medications: Active Medications Generic Name Dose Route Start Last Admin Trade Name Freq PRN Reason Stop Dose Admin Acetaminophen 650 mg 06/03/24 18:29 06/04/24 23:58 Acetaminophen 325 Mg Tablet PO 650 mg Q4H PRN Administration Mild Pain (1-3) or Fever Apixaban 5 mg 06/04/24 21:00 06/07/24 09:05 Apixaban 5 Mg Tablet PO 5 mg Q12HR B[facility]LY Administration Aspirin 81 mg 06/06/24 17:00 06/07/24 09:05 Aspirin 81 Mg Chewable Tablet PO 81 mg DAILY@0800 B[facility]LY Administration Atorvastatin Calcium 10 mg 06/04/24 09:00 06/07/24 09:05 Atorvastatin 10 Mg Tablet PO 10 mg DAILY B[facility] Administration Furosemide 20 mg 06/04/24 09:00 06/07/24 09:05 Furosemide Inj 40 Mg/4 Ml Vial IV PUSH 20 mg BID B[facility]LY Administration Ampicillin Sodium 2 gm in 100 mls @ 200 mls/hr 06/05/24 18:00 06/07/24 10:36 Ampicillin 2 Gm/Ns 100 Ml IVPB Infused Q8H [facility] Infusion Ceftriaxone Sodium 2 gm in 100 mls @ 200 mls/hr 06/06/24 05:00 06/07/24 06:25 Rocephin 2 Gm/Ns 100 Ml IVPB Infused Q12H B[facility] Infusion Acyclovir Sodium 800 mg/ 266 mls @ 266 mls/hr 06/07/24 21:00 Dextrose IVPB Q12H BEVERLY Lactic Acid 1 applic 06/04/24 17:00 06/07/24 09:07 Lactic Acid 12% Lotion 225 Btl TOPICAL 1 applic BID B[facility] Administration Loratadine 10 mg 06/04/24 09:00 06/07/24 09:05 Loratadine 10 Mg Tablet PO 10 mg DAILY B[facility] Administration Metoprolol Tartrate 50 mg 06/04/24 21:00 06/07/24 09:05 Metoprolol Tartrate 50 Mg Tab PO 50 mg Q12HR BEVER[facility] Administration Miconazole Nitrate 1 applic 06/04/24 21:00 06/06/24 21:51 Miconazole Nitrate 2% Cream 30 Gm Tube TOPICAL 1 applic HS B[facility] Administration Ondansetron HCl 4 mg 06/03/24 18:29 Ondansetron Inj 4 Mg/2 Ml Vial IV PUSH Q4H PRN Nausea Pantoprazole Sodium 40 mg 06/04/24 09:00 06/07/24 09:04 Pantoprazole 40 Mg Tablet PO 40 mg QAM B[facility] Administration Sodium Chloride 6 ml 06/06/24 05:00 06/07/24 05:31 Sodium Chlor 3% 15 Ml Neb (Respiratory Therapy) INHALATION 06/08/24 05:01 6 ml DAILY@0500 B[facility] Administration Vancomycin HCl 1 each 06/05/24 16:13 Vancomycin For Acute Kidney Injury IVPB PRN PRN Vancomycin Protocol Vitamin D 1,000 units 06/07/24 09:00 06/07/24 09:05 Cholecalciferol 1,000 Units Tablet PO 1,000 units DAILY B[facility] Administration Radiology Results: ITS Impressions Chest X-Ray 06/03/24 14:55 IMPRESSION: 1. Worsened airspace in the mid and lower lung zones, consistent with atelectasis versus pneumonia. 2. Small pleural effusions. 3. Cardiomegaly. Chest CTA 06/03/24 17:13 IMPRESSION: 1. No pulmonary embolism. 2. Bilateral moderate pleural effusion with atelectasis versus pneumonia. 3. Multiple nodules seen bilaterally which measures 5 mm. 6 months follow-up CT scan is advised. 4. Highly suggestive cholelithiasis. 5. Minimal fluid around the liver. Head CT 06/04/24 07:53 IMPRESSION: Cerebral atherosclerosis No acute intracranial finding Brain MRI 06/05/24 15:11 IMPRESSION: 1. Mildly increased T2-weighted signal intensity in the medial temporal lobes bilaterally suspicious for HSV encephalitis. 2. 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 Venous Doppler Study 06/05/24 16:41 IMPRESSION: No deep venous thrombosis within the visualized portions of the bilateral upper extremities, as detailed above. Upper Quadrant Ultrasound 06/05/24 16:44 IMPRESSION: Poor visualization of the gallbladder and pancreas secondary to overlying bowel gas. Limited visualization of the liver. Cross-sectional imaging is suggested if patient is clinically able. Lumbar Puncture Fluoroscopy 06/06/24 13:53 IMPRESSION: 1. Successful fluoro-guided lumbar puncture. Labs Labs: Laboratory Results - last 24 hr 06/07/24 06/07/24 05:05 08:49 WBC 8.0 RBC 4.08 L Hgb 12.5 Hct 41.0 MCV 100.5 H MCH 30.6 MCHC 30.5 L RDW 14.9 H Plt Count 129 L MPV 11.1 H % Immature Plt Fraction 6.0 Sodium 135 L Potassium 3.1 L Chloride 93 L Carbon Dioxide 38 H Anion Gap 4 BUN 26 H Creatinine 1.09 H Estim Creat Clear Calc 43 Estimated GFR 48 L Glucose 93 Calcium 8.8 Phosphorus 1.9 L Magnesium 1.7 Total Bilirubin 0.9 AST 63 H ALT 59 H Alkaline Phosphatase 87 Total Protein 6.0 L Albumin 3.0 L Random Vancomycin 17.9 Pulse Oximetry SpO2 results: Greater than 90%
--- NOTE | 2024-06-07 17:17 | P.PNIM_ITS ---
Progress Note: A&P Assessment and Plan (1) Acute respiratory failure with hypoxia: Code(s): J96.01 - Acute respiratory failure with hypoxia Status: Acute Assessment and Plan: Likely due to acute on chronic congestive heart failure associated with atrial fibrillation and rapid ventricular rate Not getting metoprolol or Eliquis due to her mental status change. Heart rate was poorly controlled but better now that she is getting her medications Also with hypercarbia treated with BiPAP. Probably untreated DORETHA ABG yesterday morning was 7.45/56/54 on bipap. Wean to room air as tolerated. Now refusing the bipap. Compliance was encouraged. Continue diuresis (2) Acute alteration in mental status: Code(s): R41.82 - Altered mental status, unspecified Status: Acute Assessment and Plan: This appears to be acute delirium probably related to acute respiratory failure. Consider also due to drug withdrawal as symptoms began at home with shakes and personality change and a feeling of her veins coursing (per phone conversation with daughter on 06/04/2024). Per other provider: On 06/04/24, daughter was in agreement with detox from opioids and benzodiazepines and avoiding these as long-term therapy CT brain showing no acute findings. TSH, B12 and folate normal. Ammonia <9. VitD level low so will replace. UA showing 1+ LE, +Nitrates and 21-50WBC. UCx ordered. 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 Lovenox stopped and LP ordered. Started on broad spectrum abx and anti-viral agents. Neuro consulted LP (06/06) showing normal opening pressure; 6 RBC, no WBC, Protein 67 and glucose 54. Continue current treatment plan. (3) Atrial fibrillation with rapid ventricular response: Code(s): I48.91 - Unspecified atrial fibrillation Status: Acute Assessment and Plan: Likely exacerbated by medication non adherence. Metoprolol was on hold while NPO. TSH normal. Echo showing EF 55-60%, RV pressure overload, severely enlarged RV with preserved RV fxn, mod-severe TR and severe pHTN. Metoprolol resumed and HR better. Eliquis was held for LP. Eliquis resumed (4) Acute exacerbation of congestive heart failure: Code(s): I50.9 - Heart failure, unspecified Status: Acute Assessment and Plan: Echo as above. Likely dCHF with right sided failure due to medication non adherence and atrial fibrillation with rapid ventricular rate. Low dose Lasix started and she is tolerating this well. KEESHA has improved with Cr at 1.1 now. Still with +fluid balance related to IV abx Continue diuresis but advance dose. (5) Non-ST elevation ME (NSTEMI): Code(s): I21.4 - Non-ST elevation (NSTEMI) myocardial infarction Status: Acute Assessment and Plan: Trop at 0.68 but flat. EKG showing AFib/RVR (123), low voltage, age- indeterminate anterior ME similar to prior EKG Echo as above. Suspect type 2 demand infarcts secondary to rapid atrial fibrillation ASA added. Continue Lipitor and metoprolol (6) Acute on chronic kidney failure: Code(s): N17.9 - Acute kidney failure, unspecified; N18.9 - Chronic kidney disease, unspecified Status: Acute Assessment and Plan: Baseline Cr 1.2-1.3. Cr 2.4 on admission. KEESHA related to CHF, AFib/RVR, and respiratory failure. Also received contrast with CTA chest so monitor for worsening renal function. Tolerating diuresis. Cr trending down to 1.1 Follow. Monitor UOP, electrolytes and renal fxn (7) Transaminitis: Code(s): R74.01 - Elevation of levels of liver transaminase levels Status: Acute Assessment and Plan: AST/ALT mildly elevated. and has been noted last month. Could be related to CHF. Hepatitis negative. SMITA US was very limited. LFTs better. Okay to continue Lpitor. Follow. Plan (+) DDimer - DDimer is 7. CTA negative for PE. UE and LE negative for DVT. DVT prophylaxis - Todd code status - full Subjective Date/time seen: 06/07/24 17:17 Interval history: 84yo female with dCHF, PE, pAFib, CKD and HTN here for shortness of breath. Patient now refusing to wear the bipap. She feels better. Denies SOB, CP, n/v, odynophagia or dysphagia. Exam Narrative: AF 98.8 128/62 112 20 94% RA Gen - NARD Chest - diffuse inspiratory rhonchi CV - irregular irregular; Tele showing AFib with RVR Abd -soft. Obese. NT. Ext -legs are large with 1+ pitting edema. Neuro - alert adn appropriate Psych - normal mood and affect Skin - Warm and dry Objective Data Vital Signs Vital Signs: Vital Signs - 24 hr 06/06/24 18:00 06/06/24 20:00 06/06/24 20:00 Temperature Pulse Rate 123 H 136 H Pulse Rate [With Activity During Therapy Session] Respiratory Rate Blood Pressure Pulse Oximetry 95 Pulse Oximetry [With Activity During Therapy Session] Oxygen Delivery Nasal Cannula Oxygen Flow Rate 2 Fraction of Inspired Oxygen 06/06/24 20:28 06/06/24 21:25 06/06/24 21:51 Temperature 98.7 F Pulse Rate 118 H 125 H 124 H Pulse Rate [With Activity During Therapy Session] Respiratory Rate 22 H 26 H Blood Pressure 155/60 H Pulse Oximetry 96 99 Pulse Oximetry [With Activity During Therapy Session] Oxygen Delivery BiPAP Oxygen Flow Rate Fraction of Inspired Oxygen 06/06/24 22:00 06/07/24 00:00 06/07/24 00:27 Temperature 98.9 F Pulse Rate 127 H 107 H Pulse Rate [With Activity During Therapy Session] Respiratory Rate 21 H Blood Pressure 114/67 Pulse Oximetry 98 96 Pulse Oximetry [With Activity During Therapy Session] Oxygen Delivery Nasal Cannula Oxygen Flow Rate 2 Fraction of Inspired Oxygen 06/07/24 02:00 06/07/24 04:00 06/07/24 04:00 Temperature Pulse Rate 110 H 101 H Pulse Rate [With Activity During Therapy Session] Respiratory Rate Blood Pressure Pulse Oximetry 97 Pulse Oximetry [With Activity During Therapy Session] Oxygen Delivery Nasal Cannula Oxygen Flow Rate 2 Fraction of Inspired Oxygen 06/07/24 04:57 06/07/24 05:36 06/07/24 05:44 Temperature 97.9 F Pulse Rate 105 H 103 H 107 H Pulse Rate [With Activity During Therapy Session] Respiratory Rate 18 20 20 Blood Pressure 129/64 Pulse Oximetry 97 Pulse Oximetry [With Activity During Therapy Session] Oxygen Delivery Oxygen Flow Rate Fraction of Inspired Oxygen 06/07/24 06:00 06/07/24 06:33 06/07/24 06:37 Temperature Pulse Rate 109 H Pulse Rate [With Activity During Therapy Session] Respiratory Rate Blood Pressure Pulse Oximetry 98 Pulse Oximetry [With Activity During Therapy Session] Oxygen Delivery Nasal Cannula Room Air Oxygen Flow Rate 2 Fraction of Inspired Oxygen 06/07/24 08:00 06/07/24 08:00 06/07/24 08:00 Temperature 97.8 F Pulse Rate 122 H 116 H Pulse Rate [With Activity During Therapy Session] Respiratory Rate 20 Blood Pressure 130/62 Pulse Oximetry 90 Pulse Oximetry [With Activity During Therapy Session] Oxygen Delivery Room Air Oxygen Flow Rate Fraction of Inspired Oxygen 06/07/24 09:05 06/07/24 09:15 06/07/24 09:30 Temperature Pulse Rate 119 H Pulse Rate [With Activity During Therapy Session] 130 H Respiratory Rate Blood Pressure Pulse Oximetry Pulse Oximetry [With Activity During Therapy Session] 78 L Oxygen Delivery Nasal Cannula Room Air Oxygen Flow Rate 2 Fraction of Inspired Oxygen 06/07/24 10:00 06/07/24 11:59 06/07/24 12:00 Temperature 98.3 F Pulse Rate 130 H 102 H Pulse Rate [With Activity During Therapy Session] Respiratory Rate 16 Blood Pressure 104/55 L Pulse Oximetry 98 98 Pulse Oximetry [With Activity During Therapy Session] Oxygen Delivery Nasal Cannula Oxygen Flow Rate 2 Fraction of Inspired Oxygen 25 06/07/24 12:00 06/07/24 13:52 06/07/24 16:00 Temperature 98.8 F Pulse Rate 103 H 107 H 112 H Pulse Rate [With Activity During Therapy Session] Respiratory Rate 20 Blood Pressure 128/62 Pulse Oximetry 94 Pulse Oximetry [With Activity During Therapy Session] Oxygen Delivery Oxygen Flow Rate Fraction of Inspired Oxygen Intake/Output Intake/Output: Intake & Output 06/04/24 06/05/24 06/06/24 06/07/24 23:59 23:59 23:59 23:59 Intake Total 740 975.3 2190.6 1915.3 Output Total 500 1550 250 800 Balance 240 -574.7 1940.6 1115.3 Meds/Results Medications: Active Medications Generic Name Dose Route Start Last Admin Trade Name Freq PRN Reason Stop Dose Admin Acetaminophen 650 mg 06/03/24 18:29 06/04/24 23:58 Acetaminophen 325 Mg Tablet PO 650 mg Q4H PRN Administration Mild Pain (1-3) or Fever Apixaban 5 mg 06/04/24 21:00 06/07/24 09:05 Apixaban 5 Mg Tablet PO 5 mg Q12HR BEVERLY Administration Aspirin 81 mg 06/06/24 17:00 06/07/24 09:05 Aspirin 81 Mg Chewable Tablet PO 81 mg DAILY@0800 BEVERLY Administration Atorvastatin Calcium 10 mg 06/04/24 09:00 06/07/24 09:05 Atorvastatin 10 Mg Tablet PO 10 mg DAILY BEVERLY Administration Furosemide 20 mg 06/04/24 09:00 06/07/24 09:05 Furosemide Inj 40 Mg/4 Ml Vial IV PUSH 20 mg BID BEVERLY Administration Ampicillin Sodium 2 gm in 100 mls @ 200 mls/hr 06/05/24 18:00 06/07/24 10:36 Ampicillin 2 Gm/Ns 100 Ml IVPB Infused Q8H BEVERLY Infusion Ceftriaxone Sodium 2 gm in 100 mls @ 200 mls/hr 06/06/24 05:00 06/07/24 06:25 Rocephin 2 Gm/Ns 100 Ml IVPB Infused Q12H BEVERLY Infusion Acyclovir Sodium 800 mg/ 266 mls @ 266 mls/hr 06/07/24 21:00 Dextrose IVPB Q12H BEVERLY Lactic Acid 1 applic 06/04/24 17:00 06/07/24 09:07 Lactic Acid 12% Lotion 225 Btl TOPICAL 1 applic BID BEVERLY Administration Loratadine 10 mg 06/04/24 09:00 06/07/24 09:05 Loratadine 10 Mg Tablet PO 10 mg DAILY BEVERLY Administration Metoprolol Tartrate 50 mg 06/04/24 21:00 06/07/24 09:05 Metoprolol Tartrate 50 Mg Tab PO 50 mg Q12HR BEVERLY Administration Miconazole Nitrate 1 applic 06/04/24 21:00 06/06/24 21:51 Miconazole Nitrate 2% Cream 30 Gm Tube TOPICAL 1 applic HS BEVERLY Administration Ondansetron HCl 4 mg 06/03/24 18:29 Ondansetron Inj 4 Mg/2 Ml Vial IV PUSH Q4H PRN Nausea Pantoprazole Sodium 40 mg 06/04/24 09:00 06/07/24 09:04 Pantoprazole 40 Mg Tablet PO 40 mg QAM BEVERLY Administration Sodium Chloride 6 ml 06/06/24 05:00 06/07/24 05:31 Sodium Chlor 3% 15 Ml Neb (Respiratory Therapy) INHALATION 06/08/24 05:01 6 ml DAILY@0500 BEVERLY Administration Vancomycin HCl 1 each 06/05/24 16:13 Vancomycin For Acute Kidney Injury IVPB PRN PRN Vancomycin Protocol Vitamin D 1,000 units 06/07/24 09:00 06/07/24 09:05 Cholecalciferol 1,000 Units Tablet PO 1,000 units DAILY BEVERLY Administration Radiology Results: ITS Impressions Chest X-Ray 06/03/24 14:55 IMPRESSION: 1. Worsened airspace in the mid and lower lung zones, consistent with ate lectasis versus pneumonia. 2. Small pleural effusions. 3. Cardiomegaly. Chest CTA 06/03/24 17:13 IMPRESSION: 1. No pulmonary embolism. 2. Bilateral moderate pleural effusion with atelectasis versus pneumonia. 3. Multiple nodules seen bilaterally which measures 5 mm. 6 months follow-up CT scan is advised. 4. Highly suggestive cholelithiasis. 5. Minimal fluid around the liver. Head CT 06/04/24 07:53 IMPRESSION: Cerebral atherosclerosis No acute intracranial finding Brain MRI 06/05/24 15:11 IMPRESSION: 1. Mildly increased T2-weighted signal intensity in the medial temporal lobes bilaterally suspicious for HSV encephalitis. 2. 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 Venous Doppler Study 06/05/24 16:41 IMPRESSION: No deep venous thrombosis within the visualized portions of the bilateral upper extremities, as detailed above. Upper Quadrant Ultrasound 06/05/24 16:44 IMPRESSION: Poor visualization of the gallbladder and pancreas secondary to overlying bowel gas. Limited visualization of the liver. Cross-sectional imaging is suggested if patient is clinically able. Lumbar Puncture Fluoroscopy 06/06/24 13:53 IMPRESSION: 1. Successful fluoro-guided lumbar puncture. Labs Labs: Laboratory Results - last 24 hr 06/07/24 06/07/24 05:05 08:49 WBC 8.0 RBC 4.08 L Hgb 12.5 Hct 41.0 MCV 100.5 H MCH 30.6 MCHC 30.5 L RDW 14.9 H Plt Count 129 L MPV 11.1 H % Immature Plt Fraction 6.0 Sodium 135 L Potassium 3.1 L Chloride 93 L Carbon Dioxide 38 H Anion Gap 4 BUN 26 H Creatinine 1.09 H Estim Creat Clear Calc 43 Estimated GFR 48 L Glucose 93 Calcium 8.8 Phosphorus 1.9 L Magnesium 1.7 Total Bilirubin 0.9 AST 63 H ALT 59 H Alkaline Phosphatase 87 Total Protein 6.0 L Albumin 3.0 L Random Vancomycin 17.9
[2024-06-07] MEDS: ACYCLOVIR SODIUM IVPB 800 MG in DEXTROSE 5% IN WATER 250 ML 266 MG IVPB (21:15)
[2024-06-07] MEDS: MICONAZOLE NITRATE 2% CREAM 30 GM TUBE 1 APPLIC TOPICAL (21:16)
[2024-06-08] VITALS (18 sets, daily range): BP systolic 115–173; BP diastolic 63–77; PULSE 69–114; RESP 16–22; TEMP 36.1–37.3; O2SAT 92–99
[2024-06-08] MEDS: AMPICILLIN 2 GM/NS 100 ML 2 GM/100 ML BAG IVPB ×4 (02:56→21:42)
[2024-06-08] MEDS: SODIUM CHLOR 3% 15 ML NEB (RESPIRATORY THERAPY) 6 ML INHALATION (05:05)
--- NOTE | 2024-06-08 05:08 | PCRCNOTE ---
Patient unable to produce sputum following sputum induction. Sputum cup left at bedside.
[2024-06-08 05:29] LABS: Hematocrit 39.1 % (37.0-47.0); Hemoglobin 12.1 g/dL (12.0-15.0); Immature Platelet Fraction Pct 6.3 % (0.9-11.2); Mean Corpuscular HGB Conc 30.9 g/dl (32-36); Mean Corpuscular Volume 100.3 fl (80-100); Mean Platelet Volume 11.5 fl (7.4-10.4); Platelet Count Result 131 k/mm3 (150-375); Red Cell Distribution Width 14.9 % (11.5-14.5)
[2024-06-08] MEDS: cefTRIAXone 2 GM/NS 100 ML 2 GM/100 ML BAG IVPB ×2 (05:52→16:43)
[2024-06-08 05:59] LABS: Alanine Aminotransferase 50 U/L (6-35); Alkaline Phosphatase 83 U/L (38-126); Aspartate Amino Transferase 51 U/L (14-36); Bilirubin,Total 0.9 mg/dL (0.2-1.3); Blood Urea Nitrogen 20 mg/dL (7-17); Calcium 8.9 mg/dL (8.4-10.2); Chloride 96 mmol/L (98-107); Estimated CRCL calculation 47 ml/min; Estimated Glomerular Filt Rate 52; Glucose 101 mg/dL (65-110); Magnesium 1.9 mg/dL (1.6-2.3); Phosphorus 2.1 mg/dL (2.5-4.5); Potassium 3.3 mmol/L (3.4-5.0); Sodium 136 mmol/L (137-145)
[2024-06-08 06:01] LABS: Vancomycin Random 23.8 ug/mL (10-20)
[2024-06-08 06:34] LABS: Anion Gap 2 mmol/L (4-12); Carbon Dioxide 38 mmol/L (22-30)
--- NOTE | 2024-06-08 08:29 | P.PNIM_ITS ---
Progress Note: A&P Assessment and Plan (1) Acute respiratory failure with hypoxia: Code(s): J96.01 - Acute respiratory failure with hypoxia Status: Acute Assessment and Plan: Likely due to acute on chronic congestive heart failure associated with atrial fibrillation and rapid ventricular rate Not getting metoprolol or Eliquis due to her mental status change. Heart rate was poorly controlled but better now that she is getting her medications Also with hypercarbia treated with BiPAP. Probably untreated DORETHA ABG yesterday morning was 7.45/56/54 on bipap. Wean to room air as tolerated. Now refusing the bipap. Compliance was encouraged. Continue diuresis (2) Acute alteration in mental status: Code(s): R41.82 - Altered mental status, unspecified Status: Acute Assessment and Plan: This appears to be acute delirium probably related to acute respiratory failure. Consider also due to drug withdrawal as symptoms began at home with shakes and personality change and a feeling of her veins coursing (per phone conversation with daughter on 06/04/2024). Per other provider: On 06/04/24, daughter was in agreement with detox from opioids and benzodiazepines and avoiding these as long-term therapy CT brain showing no acute findings. TSH, B12 and folate normal. Ammonia <9. VitD level low so will replace. UA showing 1+ LE, +Nitrates and 21-50WBC. UCx ordered. 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 Lovenox stopped and LP ordered. Started on broad spectrum abx and anti-viral agents. Neuro consulted LP (06/06) showing normal opening pressure; 6 RBC, no WBC, Protein 67 and glucose 54. Continue current treatment plan. (3) Atrial fibrillation with rapid ventricular response: Code(s): I48.91 - Unspecified atrial fibrillation Status: Acute Assessment and Plan: Likely exacerbated by medication non adherence. Metoprolol was on hold while NPO. TSH normal. Echo showing EF 55-60%, RV pressure overload, severely enlarged RV with preserved RV fxn, mod-severe TR and severe pHTN. Metoprolol resumed and HR better. Eliquis was held for LP. Eliquis resumed now (4) Acute exacerbation of congestive heart failure: Code(s): I50.9 - Heart failure, unspecified Status: Acute Assessment and Plan: Echo as above. Likely dCHF with right sided failure due to medication non adherence and atrial fibrillation with rapid ventricular rate. Low dose Lasix started and she is tolerating this well. KEESHA has improved with Cr at 1.1 now. Still with +fluid balance related to IV abx Continue diuresis but advance dose. (5) Non-ST elevation CT (NSTEMI): Code(s): I21.4 - Non-ST elevation (NSTEMI) myocardial infarction Status: Acute Assessment and Plan: Trop at 0.68 but flat. EKG showing AFib/RVR (123), low voltage, age- indeterminate anterior CT similar to prior EKG Echo as above. Suspect type 2 demand infarcts secondary to rapid atrial fibrillation ASA added. Continue Lipitor and metoprolol (6) Acute on chronic kidney failure: Code(s): N17.9 - Acute kidney failure, unspecified; N18.9 - Chronic kidney disease, unspecified Status: Acute Assessment and Plan: Baseline Cr 1.2-1.3. Cr 2.4 on admission. KEESHA related to CHF, AFib/RVR, and respiratory failure. Also received contrast with CTA chest so monitor for worsening renal function. Tolerating diuresis. Cr trending down to 1.1 Follow. Monitor UOP, electrolytes and renal fxn (7) Transaminitis: Code(s): R74.01 - Elevation of levels of liver transaminase levels Status: Acute Assessment and Plan: AST/ALT mildly elevated. and has been noted last month. Could be related to CHF. Hepatitis negative. SMITA US was very limited. LFTs better. Okay to continue Lpitor. Follow. Plan (+) DDimer - DDimer is 7. CTA negative for PE. UE and LE negative for DVT. DVT prophylaxis - Todd code status - full Subjective Date/time seen: 06/08/24 08:29 Interval history: No overnight events. Use BiPAP for few hours. Feeling better. Work with therapy yesterday. Review of Systems Review of Systems: All systems reviewed & are unremarkable except as noted in HPI and below Exam Narrative: Gen - NARD Chest -diminished breath sounds bilaterally no respiratory distress CV - irregular irregular; rate controlled Abd -soft. Obese. NT. Ext -legs are large with 1+ pitting edema. Neuro - alert adn appropriate Psych - normal mood and affect Skin - Warm and dry Objective Data Vital Signs Vital Signs: Vital Signs - 24 hr 06/07/24 09:05 06/07/24 09:15 06/07/24 09:30 Temperature Pulse Rate 119 H Pulse Rate [With Activity During Therapy Session] 130 H Respiratory Rate Blood Pressure Pulse Oximetry Pulse Oximetry [With Activity During Therapy Session] 78 L Oxygen Delivery Nasal Cannula Room Air Oxygen Flow Rate 2 Fraction of Inspired Oxygen 06/07/24 10:00 06/07/24 11:59 06/07/24 12:00 Temperature 98.3 F Pulse Rate 130 H 102 H Pulse Rate [With Activity During Therapy Session] Respiratory Rate 16 Blood Pressure 104/55 L Pulse Oximetry 98 98 Pulse Oximetry [With Activity During Therapy Session] Oxygen Delivery Nasal Cannula Oxygen Flow Rate 2 Fraction of Inspired Oxygen 06/07/24 12:00 06/07/24 13:52 06/07/24 16:00 Temperature 98.8 F Pulse Rate 103 H 107 H 112 H Pulse Rate [With Activity During Therapy Session] Respiratory Rate 20 Blood Pressure 128/62 Pulse Oximetry 94 Pulse Oximetry [With Activity During Therapy Session] Oxygen Delivery Oxygen Flow Rate Fraction of Inspired Oxygen 06/07/24 16:00 06/07/24 16:00 06/07/24 18:34 Temperature Pulse Rate 110 H 112 H Pulse Rate [With Activity During Therapy Session] Respiratory Rate Blood Pressure Pulse Oximetry 94 Pulse Oximetry [With Activity During Therapy Session] Oxygen Delivery Nasal Cannula Oxygen Flow Rate 2 Fraction of Inspired Oxygen 06/07/24 19:44 06/07/24 20:00 06/07/24 20:00 Temperature 97.9 F Pulse Rate 113 H 118 H Pulse Rate [With Activity During Therapy Session] Respiratory Rate 20 Blood Pressure 125/72 Pulse Oximetry 96 93 Pulse Oximetry [With Activity During Therapy Session] Oxygen Delivery Nasal Cannula Oxygen Flow Rate 2 Fraction of Inspired Oxygen 06/07/24 21:15 06/07/24 22:00 06/07/24 23:05 Temperature Pulse Rate 102 H 111 H 109 H Pulse Rate [With Activity During Therapy Session] Respiratory Rate 25 H Blood Pressure Pulse Oximetry 98 Pulse Oximetry [With Activity During Therapy Session] Oxygen Delivery BiPAP Oxygen Flow Rate Fraction of Inspired Oxygen 06/07/24 23:38 06/08/24 00:00 06/08/24 00:00 Temperature 97.8 F Pulse Rate 101 H 92 Pulse Rate [With Activity During Therapy Session] Respiratory Rate 20 Blood Pressure 107/58 L Pulse Oximetry 93 96 Pulse Oximetry [With Activity During Therapy Session] Oxygen Delivery BiPAP Oxygen Flow Rate 2 Fraction of Inspired Oxygen 06/08/24 02:00 06/08/24 04:00 06/08/24 04:00 Temperature Pulse Rate 95 99 Pulse Rate [With Activity During Therapy Session] Respiratory Rate Blood Pressure Pulse Oximetry 99 Pulse Oximetry [With Activity During Therapy Session] Oxygen Delivery Nasal Cannula Oxygen Flow Rate 2 Fraction of Inspired Oxygen 06/08/24 04:00 06/08/24 05:05 06/08/24 07:36 Temperature 97.8 F 99.1 F Pulse Rate 93 90 108 H Pulse Rate [With Activity During Therapy Session] Respiratory Rate 16 20 22 H Blood Pressure 117/69 173/63 H Pulse Oximetry 96 96 Pulse Oximetry [With Activity During Therapy Session] Oxygen Delivery Oxygen Flow Rate Fraction of Inspired Oxygen Intake/Output Intake/Output: Intake & Output 06/05/24 06/06/24 06/07/24 06/08/24 23:59 23:59 23:59 23:59 Intake Total 975.3 2190.6 2701.3 600 Output Total 4276 094 5345 350 Balance -574.7 1940.6 1601.3 250 Meds/Results Medications: Active Medications Generic Name Dose Route Start Last Admin Trade Name Freq PRN Reason Stop Dose Admin Acetaminophen 650 mg 06/03/24 18:29 06/04/24 23:58 Acetaminophen 325 Mg Tablet PO 650 mg Q4H PRN Administration Mild Pain (1-3) or Fever Apixaban 5 mg 06/04/24 21:00 06/07/24 21:15 Apixaban 5 Mg Tablet PO 5 mg Q12HR BEVERLY Administration Aspirin 81 mg 06/06/24 17:00 06/07/24 09:05 Aspirin 81 Mg Chewable Tablet PO 81 mg DAILY@0800 BEVERLY Administration Atorvastatin Calcium 10 mg 06/04/24 09:00 06/07/24 09:05 Atorvastatin 10 Mg Tablet PO 10 mg DAILY BEVERLY Administration Furosemide 40 mg 06/08/24 09:00 Furosemide Inj 40 Mg/4 Ml Vial IV PUSH BID BEVERLY Ampicillin Sodium 2 gm in 100 mls @ 200 mls/hr 06/05/24 18:00 06/08/24 03:26 Ampicillin 2 Gm/Ns 100 Ml IVPB Infused Q8H BEVERLY Infusion Ceftriaxone Sodium 2 gm in 100 mls @ 200 mls/hr 06/06/24 05:00 06/08/24 06:22 Rocephin 2 Gm/Ns 100 Ml IVPB Infused Q12H BEVERLY Infusion Acyclovir Sodium 800 mg/ 266 mls @ 266 mls/hr 06/07/24 21:00 06/07/24 22:15 Dextrose IVPB Infused Q12H BEVERLY Infusion Vancomycin HCl 2,000 mg in 500 mls @ 250 mls/hr 06/08/24 10:00 Vancomycin 2,000 Mg/Ns 500 Ml IVPB Q24H BEVERLY Lactic Acid 1 applic 06/04/24 17:00 06/07/24 18:02 Lactic Acid 12% Lotion 225 Btl TOPICAL 1 applic BID BEVERLY Administration Loratadine 10 mg 06/04/24 09:00 06/07/24 09:05 Loratadine 10 Mg Tablet PO 10 mg DAILY BEVERLY Administration Metoprolol Tartrate 50 mg 06/04/24 21:00 06/07/24 21:15 Metoprolol Tartrate 50 Mg Tab PO 50 mg Q12HR BEVERLY Administration Miconazole Nitrate 1 applic 06/04/24 21:00 06/07/24 21:16 Miconazole Nitrate 2% Cream 30 Gm Tube TOPICAL 1 applic HS BEVERLY Administration Ondansetron HCl 4 mg 06/03/24 18:29 Ondansetron Inj 4 Mg/2 Ml Vial IV PUSH Q4H PRN Nausea Pantoprazole Sodium 40 mg 06/04/24 09:00 06/07/24 09:04 Pantoprazole 40 Mg Tablet PO 40 mg QAM BEVERLY Administration Vancomycin HCl 1 each 06/05/24 16:13 Vancomycin For Acute Kidney Injury IVPB PRN PRN Vancomycin Protocol Vitamin D 1,000 units 06/07/24 09:00 06/07/24 09:05 Cholecalciferol 1,000 Units Tablet PO 1,000 units DAILY BEVERLY Administration Radiology Results: ITS Impressions Chest X-Ray 06/03/24 14:55 IMPRESSION: 1. Worsened airspace in the mid and lower lung zones, consistent with atelectasis versus pneumonia. 2. Small pleural effusions. 3. Cardiomegaly. Chest CTA 06/03/24 17:13 IMPRESSION: 1. No pulmonary embolism. 2. Bilateral moderate pleural effusion with atelectasis versus pneumonia. 3. Multiple nodules seen bilaterally which measures 5 mm. 6 months follow-up CT scan is advised. 4. Highly suggestive cholelithiasis. 5. Minimal fluid around the liver. Head CT 06/04/24 07:53 IMPRESSION: Cerebral atherosclerosis No acute intracranial finding Brain MRI 06/05/24 15:11 IMPRESSION: 1. Mildly increased T2-weighted signal intensity in the medial temporal lobes bilaterally suspicious for HSV encephalitis. 2. 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 Venous Doppler Study 06/05/24 16:41 IMPRESSION: No deep venous thrombosis within the visualized portions of the bilateral upper extremities, as detailed above. Upper Quadrant Ultrasound 06/05/24 16:44 IMPRESSION: Poor visualization of the gallbladder and pancreas secondary to overlying bowel gas. Limited visualization of the liver. Cross-sectional imaging is suggested if patient is clinically able. Lumbar Puncture Fluoroscopy 06/06/24 13:53 IMPRESSION: 1. Successful fluoro-guided lumbar puncture. Labs Labs: Laboratory Results - last 24 hr 06/07/24 06/08/24 08:49 05:08 WBC 8.0 RBC 3.90 L Hgb 12.1 Hct 39.1 MCV 100.3 H MCH 31.0 MCHC 30.9 L RDW 14.9 H Plt Count 131 L MPV 11.5 H % Immature Plt Fraction 6.3 Sodium 136 L Potassium 3.3 L Chloride 96 L Carbon Dioxide 38 H Anion Gap 2 L BUN 20 H Creatinine 1.01 H Estim Creat Clear Calc 47 Estimated GFR 52 L Glucose 101 Calcium 8.9 Phosphorus 2.1 L Magnesium 1.9 Total Bilirubin 0.9 AST 51 H ALT 50 H Alkaline Phosphatase 83 Total Protein 6.0 L Albumin 3.0 L Random Vancomycin 17.9 23.8 H
[2024-06-08] MEDS: APIXABAN 5 MG TABLET PO ×2 (09:07→21:43)
[2024-06-08] MEDS: PANTOPRAZOLE 40 MG TABLET PO (09:07)
[2024-06-08] MEDS: ATORVASTATIN 10 MG TABLET PO (09:07)
[2024-06-08] MEDS: LORATADINE 10 MG TABLET PO (09:07)
[2024-06-08] MEDS: ASPIRIN 81 MG CHEWABLE TABLET PO (09:07)
[2024-06-08] MEDS: METOPROLOL TARTRATE 50 MG TAB PO ×2 (09:08→21:42)
[2024-06-08] MEDS: CHOLECALCIFEROL 1,000 UNITS TABLET 1000 UNITS PO (09:09)
[2024-06-08] MEDS: FUROSEMIDE INJ 40 MG/4 ML VIAL IV PUSH ×2 (09:09→16:43)
[2024-06-08] MEDS: POTASSIUM PHOS/SODIUM PHOS 250 MG TABLET PO (09:13)
[2024-06-08] MEDS: ACYCLOVIR SODIUM IVPB 800 MG in DEXTROSE 5% IN WATER 250 ML 266 MG IVPB ×2 (09:33→21:42)
[2024-06-08 09:39] LABS: Hepatitis B Core Ab Total NON-REACTIVE (NON-REACTIVE)
[2024-06-08] MEDS: VANCOMYCIN 1,500 MG/NS 500 ML 1,500 MG/500 ML BAG 250 MG IVPB (10:31)
[2024-06-08] MEDS: LACTIC ACID 12% LOTION 225 BTL 1 APPLIC TOPICAL ×2 (12:32→21:43)
[2024-06-08] MEDS: MICONAZOLE NITRATE 2% CREAM 30 GM TUBE 1 APPLIC TOPICAL (21:43)
--- NOTE | 2024-06-08 22:23 | PC.NURSE ---
This RN called report to Rosi BECERRA at [id number]. Pt transferred by bed to room 340. Pt belongings with patient at transfer. Pt aware of unit protocols.
[2024-06-09] VITALS (13 sets, daily range): BP systolic 112–132; BP diastolic 64–73; PULSE 84–111; RESP 16–26; TEMP 36–36.8; O2SAT 92–99
[2024-06-09] MEDS: AMPICILLIN 2 GM/NS 100 ML 2 GM/100 ML BAG IVPB (02:32)
[2024-06-09] MEDS: cefTRIAXone 2 GM/NS 100 ML 2 GM/100 ML BAG IVPB (04:19)
[2024-06-09 05:44] LABS: Hematocrit 39.8 % (37.0-47.0); Immature Platelet Fraction Pct 7.1 % (0.9-11.2); Mean Corpuscular HGB Conc 30.2 g/dl (32-36); Mean Corpuscular Hemoglobin 30.5 pg (26-34); Mean Platelet Volume 11.2 fl (7.4-10.4); Platelet Count Result 121 k/mm3 (150-375); Red Blood Count 3.94 M/mm3 (4.2-5.4); Red Cell Distribution Width 14.9 % (11.5-14.5); White Blood Count 8.1 K/mm3 (4.5-10.0)
[2024-06-09 05:51] LABS: Magnesium 1.9 mg/dL (1.6-2.3); Phosphorus 1.9 mg/dL (2.5-4.5)
[2024-06-09 06:00] LABS: Alanine Aminotransferase 47 U/L (6-35); Albumin Level 2.8 g/dL (3.5-5.1); Alkaline Phosphatase 74 U/L (38-126); Aspartate Amino Transferase 49 U/L (14-36); Bilirubin,Total 0.7 mg/dL (0.2-1.3); Blood Urea Nitrogen 16 mg/dL (7-17); Calcium 8.4 mg/dL (8.4-10.2); Chloride 95 mmol/L (98-107); Estimated CRCL calculation 51 ml/min; Estimated Glomerular Filt Rate 57; Glucose 87 mg/dL (65-110); Potassium 3.3 mmol/L (3.4-5.0); Sodium 137 mmol/L (137-145)
[2024-06-09 06:15] LABS: Carbon Dioxide > 40 mmol/L (22-30)
--- NOTE | 2024-06-09 08:12 | PCPTNOTE ---
Attempted to see patient for PT, however patient was working with OT.
--- NOTE | 2024-06-09 08:32 | P.PNIM_ITS ---
Progress Note: A&P Assessment and Plan (1) Acute respiratory failure with hypoxia: Code(s): J96.01 - Acute respiratory failure with hypoxia Status: Acute Assessment and Plan: Likely due to acute on chronic congestive heart failure associated with atrial fibrillation and rapid ventricular rate Not getting metoprolol or Eliquis due to her mental status change. Heart rate was poorly controlled but better now that she is getting her medications Also with hypercarbia treated with BiPAP. Probably untreated DORETHA ABG yesterday morning was 7.45/56/54 on bipap. Wean to room air as tolerated. Now refusing the bipap. Compliance was encouraged. Continue diuresis Pulmonary to see regarding hypercapnic respiratory failure (2) Acute alteration in mental status: Code(s): R41.82 - Altered mental status, unspecified Status: Acute Assessment and Plan: This appears to be acute delirium probably related to acute respiratory failure. Consider also due to drug withdrawal as symptoms began at home with shakes and personality change and a feeling of her veins coursing (per phone conversation with daughter on 06/04/2024). Per other provider: On 06/04/24, daughter was in agreement with detox from opioids and benzodiazepines and avoiding these as long-term therapy CT brain showing no acute findings. TSH, B12 and folate normal. Ammonia <9. VitD level low so will replace. UA showing 1+ LE, +Nitrates and 21-50WBC. UCx ordered. 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 Lovenox stopped and LP ordered. Started on broad spectrum abx and anti-viral agents. Neuro consulted LP (06/06) showing normal opening pressure; 6 RBC, no WBC, Protein 67 and glucose 54. Continue current treatment plan. Will taper down antibiotics. Continue ceftriaxone for UTI gram-negative bacilli and urine culture pending identification Continue acyclovir until HSV PCR is back negative (3) Atrial fibrillation with rapid ventricular response: Code(s): I48.91 - Unspecified atrial fibrillation Status: Acute Assessment and Plan: Likely exacerbated by medication non adherence. Metoprolol was on hold while NPO. TSH normal. Echo showing EF 55-60%, RV pressure overload, severely enlarged RV with preserved RV fxn, mod-severe TR and severe pHTN. Metoprolol resumed and HR better. Eliquis was held for LP. Eliquis resumed now (4) Acute exacerbation of congestive heart failure: Code(s): I50.9 - Heart failure, unspecified Status: Acute Assessment and Plan: Echo as above. Likely dCHF with right sided failure due to medication non adherence and atrial fibrillation with rapid ventricular rate. Low dose Lasix started and she is tolerating this well. KEESHA has improved with Cr at 1.1 now. Still with +fluid balance related to IV abx Continue diuresis but advance dose. (5) Non-ST elevation [place] (NSTEMI): Code(s): I21.4 - Non-ST elevation (NSTEMI) myocardial infarction Status: Acute Assessment and Plan: Trop at 0.68 but flat. EKG showing AFib/RVR (123), low voltage, age- indeterminate anterior OH similar to prior EKG Echo as above. Suspect type 2 demand infarcts secondary to rapid atrial fibrillation ASA added. Continue Lipitor and metoprolol (6) Acute on chronic kidney failure: Code(s): N17.9 - Acute kidney failure, unspecified; N18.9 - Chronic kidney disease, unspecified Status: Acute Assessment and Plan: Baseline Cr 1.2-1.3. Cr 2.4 on admission. KEESHA related to CHF, AFib/RVR, and respiratory failure. Also received contrast with CTA chest so monitor for worsening renal function. Tolerating diuresis. Cr trending down to 1.1 Follow. Monitor UOP, electrolytes and renal fxn (7) Transaminitis: Code(s): R74.01 - Elevation of levels of liver transaminase levels Status: Acute Assessment and Plan: AST/ALT mildly elevated. and has been noted last month. Could be related to CHF. Hepatitis negative. SMITA US was very limited. LFTs better. Okay to continue Lpitor. Follow. Plan (+) DDimer - DDimer is 7. CTA negative for PE. UE and LE negative for DVT. DVT prophylaxis - Eliquis code status - full Subjective Date/time seen: 06/09/24 08:32 Interval history: She were BiPAP last night. No other complaints. Remains afebrile. No nausea vomiting. Remains on 2 L oxygen. Review of Systems Review of Systems: All systems reviewed & are unremarkable except as noted in HPI and below Exam Narrative: Gen - NARD Chest -diminished breath sounds bilaterally no respiratory distress CV - irregular irregular; rate controlled Abd -soft. Obese. NT. Ext -legs are large with 1+ pitting edema. Neuro - alert adn appropriate Psych - normal mood and affect Skin - Warm and dry Objective Data Vital Signs Vital Signs: Vital Signs - 24 hr 06/08/24 09:08 06/08/24 10:00 06/08/24 11:35 Temperature 97.4 F L Pulse Rate 111 H 100 109 H Respiratory Rate 18 Blood Pressure 121/66 Pulse Oximetry 97 Oxygen Delivery Oxygen Flow Rate 06/08/24 12:00 06/08/24 15:17 06/08/24 16:00 Temperature 98.7 F Pulse Rate 102 H 100 Respiratory Rate 22 H Blood Pressure 125/69 Pulse Oximetry 92 98 Oxygen Delivery Nasal Cannula Oxygen Flow Rate 1 06/08/24 16:00 06/08/24 19:59 06/08/24 20:00 Temperature 97.6 F Pulse Rate 100 69 Respiratory Rate 17 Blood Pressure 115/77 Pulse Oximetry 93 96 Oxygen Delivery Nasal Cannula Oxygen Flow Rate 1 06/08/24 20:00 06/08/24 21:42 06/08/24 22:37 Temperature Pulse Rate 106 H 114 H 73 Respiratory Rate Blood Pressure Pulse Oximetry Oxygen Delivery Oxygen Flow Rate 06/08/24 22:47 06/08/24 22:47 06/09/24 00:00 Temperature 97 F L Pulse Rate 95 95 84 Respiratory Rate 18 21 H Blood Pressure 121/77 Pulse Oximetry 94 94 Oxygen Delivery BiPAP Oxygen Flow Rate 06/09/24 04:00 06/09/24 04:00 06/09/24 07:43 Temperature 97.6 F 96.8 F L Pulse Rate 92 87 92 Respiratory Rate 20 20 Blood Pressure 118/73 131/71 Pulse Oximetry 97 98 Oxygen Delivery Oxygen Flow Rate Intake/Output Intake/Output: Intake & Output 06/06/24 06/07/24 06/08/24 06/09/24 23:59 23:59 23:59 23:59 Intake Total 2190.6 2701.3 2602 200 Output Total 250 1100 1475 250 Balance 1940.6 1601.3 1127 -50 Meds/Results Medications: Active Medications Generic Name Dose Route Start Last Admin Trade Name Freq PRN Reason Stop Dose Admin Acetaminophen 650 mg 06/03/24 18:29 06/04/24 23:58 Acetaminophen 325 Mg Tablet PO 650 mg Q4H PRN Administration Mild Pain (1-3) or Fever Apixaban 5 mg 06/04/24 21:00 06/08/24 21:43 Apixaban 5 Mg Tablet PO 5 mg Q12HR BEVERLY Administration Aspirin 81 mg 06/06/24 17:00 06/08/24 09:07 Aspirin 81 Mg Chewable Tablet PO 81 mg DAILY@0800 BEVERLY Administration Atorvastatin Calcium 10 mg 06/04/24 09:00 06/08/24 09:07 Atorvastatin 10 Mg Tablet PO 10 mg DAILY BEVERLY Administration Furosemide 40 mg 06/08/24 09:00 06/08/24 16:43 Furosemide Inj 40 Mg/4 Ml Vial IV PUSH 40 mg BID BEVERLY Administration Ceftriaxone Sodium 2 gm in 100 mls @ 200 mls/hr 06/06/24 05:00 06/09/24 04:49 Rocephin 2 Gm/Ns 100 Ml IVPB Infused Q12H BEVERLY Infusion Acyclovir Sodium 800 mg/ 266 mls @ 266 mls/hr 06/07/24 21:00 06/08/24 22:42 Dextrose IVPB Infused Q12H BEVERLY Infusion Vancomycin HCl 1,500 mg in 500 mls @ 250 mls/hr 06/08/24 10:00 06/08/24 12:40 Vancomycin 1,500 Mg/Ns 500 Ml IVPB Infused Q24H BEVERLY Infusion Ampicillin Sodium 2 gm in 100 mls @ 200 mls/hr 06/08/24 15:00 06/09/24 03:02 Ampicillin 2 Gm/Ns 100 Ml IVPB Infused Q6H BEVERLY Infusion Lactic Acid 1 applic 06/08/24 21:00 06/08/24 21:43 Lactic Acid 12% Lotion 225 Btl TOPICAL 1 applic Q12HR BEVERLY Administration Loratadine 10 mg 06/04/24 09:00 06/08/24 09:07 Loratadine 10 Mg Tablet PO 10 mg DAILY BEVERLY Administration Metoprolol Tartrate 50 mg 06/04/24 21:00 06/08/24 21:42 Metoprolol Tartrate 50 Mg Tab PO 50 mg Q12HR BEVERLY Administration Miconazole Nitrate 1 applic 06/04/24 21:00 06/08/24 21:43 Miconazole Nitrate 2% Cream 30 Gm Tube TOPICAL 1 applic HS BEVERLY Administration Ondansetron HCl 4 mg 06/03/24 18:29 Ondansetron Inj 4 Mg/2 Ml Vial IV PUSH Q4H PRN Nausea Pantoprazole Sodium 40 mg 06/04/24 09:00 06/08/24 09:07 Pantoprazole 40 Mg Tablet PO 40 mg QAM BEVERLY Administration Vitamin D 1,000 units 06/07/24 09:00 06/08/24 09:09 Cholecalciferol 1,000 Units Tablet PO 1,000 units DAILY BEVERLY Administration Radiology Results: ITS Impressions Chest X-Ray 06/03/24 14:55 IMPRESSION: 1. Worsened airspace in the mid and lower lung zones, consistent with atelectasis versus pneumonia. 2. Small pleural effusions. 3. Cardiomegaly. Chest CTA 06/03/24 17:13 IMPRESSION: 1. No pulmonary embolism. 2. Bilateral moderate pleural effusion with atelectasis versus pneumonia. 3. Multiple nodules seen bilaterally which measures 5 mm. 6 months follow-up CT scan is advised. 4. Highly suggestive cholelithiasis. 5. Minimal fluid around the liver. Head CT 06/04/24 07:53 IMPRESSION: Cerebral atherosclerosis No acute intracranial finding Brain MRI 06/05/24 15:11 IMPRESSION: 1. Mildly increased T2-weighted signal intensity in the medial temporal lobes bilaterally suspicious for HSV encephalitis. 2. 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 Venous Doppler Study 06/05/24 16:41 IMPRESSION: No deep venous thrombosis within the visualized portions of the bilateral upper extremities, as detailed above. Upper Quadrant Ultrasound 06/05/24 16:44 IMPRESSION: Poor visualization of the gallbladder and pancreas secondary to overlying bowel gas. Limited visualization of the liver. Cross-sectional imaging is suggested if patient is clinically able. Lumbar Puncture Fluoroscopy 06/06/24 13:53 IMPRESSION: 1. Successful fluoro-guided lumbar puncture. Labs Labs: Laboratory Results - last 24 hr 06/06/24 06/09/24 04:28 05:26 WBC 8.1 RBC 3.94 L Hgb 12.0 Hct 39.8 MCV 101.0 H MCH 30.5 MCHC 30.2 L RDW 14.9 H Plt Count 121 L MPV 11.2 H % Immature Plt Fraction 7.1 Sodium 137 Potassium 3.3 L Chloride 95 L Carbon Dioxide > 40 H Anion Gap BUN 16 Creatinine 0.93 Estim Creat Clear Calc 51 Estimated GFR 57 L Glucose 87 Calcium 8.4 Phosphorus 1.9 L Magnesium 1.9 Total Bilirubin 0.7 AST 49 H ALT 47 H Alkaline Phosphatase 74 Total Protein 6.0 L Albumin 2.8 L Hep B Core Total Ab Non-reactive
[2024-06-09] MEDS: PANTOPRAZOLE 40 MG TABLET PO (08:56)
[2024-06-09] MEDS: ATORVASTATIN 10 MG TABLET PO (08:56)
[2024-06-09] MEDS: ASPIRIN 81 MG CHEWABLE TABLET PO (08:56)
[2024-06-09] MEDS: LORATADINE 10 MG TABLET PO (08:56)
[2024-06-09] MEDS: APIXABAN 5 MG TABLET PO ×2 (08:56→20:26)
[2024-06-09] MEDS: FUROSEMIDE INJ 40 MG/4 ML VIAL IV PUSH ×2 (08:57→16:47)
[2024-06-09] MEDS: CHOLECALCIFEROL 1,000 UNITS TABLET 1000 UNITS PO (08:57)
[2024-06-09] MEDS: METOPROLOL TARTRATE 50 MG TAB PO ×2 (08:59→20:26)
[2024-06-09] MEDS: POTASSIUM PHOS/SODIUM PHOS 250 MG TABLET PO (09:04)
[2024-06-09] MEDS: LACTIC ACID 12% LOTION 225 BTL 1 APPLIC TOPICAL ×2 (09:04→22:36)
[2024-06-09] MEDS: ACYCLOVIR SODIUM IVPB 800 MG in DEXTROSE 5% IN WATER 250 ML 266 MG IVPB ×2 (10:01→20:26)
[2024-06-09 12:14] LABS: NT Pro B Type Natriuretic Pept 4320 pg/mL (19.9-100)
--- NOTE | 2024-06-09 13:13 | PM.CNPUL ---
Assessment and Plan Assessment and plan (1) Chronic respiratory failure with hypercapnia: Code(s): J96.12 - Chronic respiratory failure with hypercapnia Status: Acute Assessment and Plan: Patient has evidence of chronic hypercarbic respiratory failure. Serum bicarbonate on admission was 31. on admission on 06/03/2024 Blood gas on 10 L non-rebreather on admission was 7.33/59/137. on 06/05/2024 ABG 7.30/66/64 on 3 L nasal cannula. Placed on BiPAP rate of 18 with repeat blood gas 7.37/67/61. Her pressures were increased to 16/6. TSH 0.799. 06/06/2024: ABG on BiPAP 16/6 pH 7.45/56/54. patient has evidence of fluid overload with elevated BNP at 4320, CT scan of the chest with bilateral pleural effusions right greater than left that have increased in size since 04/30/2024, she has pedal edema. Etiology of chronic hypercarbic respiratory failure failure includes fluid overload, obesity hypoventilation syndrome. her thyroid studies are normal. Plan: Agree with as aggressive diuresis as tolerated by her cardiac and renal systems. When she is euvolemic without bilateral pleural effusions will repeat daytime ABG to assess for obesity hypoventilation syndrome. While she is in the hospital will continue noninvasive ventilation with the AVAPS mode with rate of 14, tidal volume 500, EPAP 8, minimal inspiratory pressure 9, maximal inspiratory pressure 25, inspiratory time 1.0, rise of 5 which is are slowest and 28% FiO2. she does not need antibiotics from a pulmonary perspective. I will check an ABG in the morning and an overnight oximetry on these settings. Discussed [facility] Dr. Jeffers, will follow with you. (2) Acute exacerbation of congestive heart failure: Code(s): I50.9 - Heart failure, unspecified Status: Acute Assessment and Plan: 06/09/24: Patient's weight today is 127 kg her weight on 06/03/2024 was 126.9 kg. On 05/04/2024 her discharge weight was 131 kg. Yesterday she was positive 1.1 L and cumulative she is positive 4.4 L since admission. Plan: currently the patient is being diuresed with Lasix 40 IV b.i.d. History of Present Illness History of Present Illness Consult date: 06/09/24 Chief complaint: Heart Failure/Afib/New O2 Requirement Narrative: 06/09/2024: This is a new pulmonary consult for hypercarbic respiratory failure. 84-year-old with a history of atrial fibrillation on anticoagulation, congestive heart failure with preserved ejection fraction, morbid obesity, CKD, hypertension, hyperlipidemia, GERD, Pulmonary embolism. At baseline the patient tells me she is not on any home oxygen. She uses a walker and can walk half a block. This is unchanged over the last year. She has used a walker for 5 years. She lives alone and can do her own grocery shopping. Patient smokes cigarettes for 36 years at 1/4 pack per day for total of 12 pack years. She quit in 2004. She has never been on inhalers and never since been told she had COPD or asthma. Patient tells me she has never been tested for obstructive sleep apnea. She does snore but takes minimal maps has no morning headaches and feels refreshed when she wakes up. patient recently admitted to [facility] from 04/30/2020 [phone] with pulmonary embolism, pneumonia, AFib with RVR. she was treated with apixaban, Lasix, antibiotics. On 06/03/2024 she presented to the hospital with shortness of breath from her PCPs office. At the PCPs office she was hypoxic on room air heart rate was 120 with AFib in RVR and sent to the emergency department. Occasionally experience chest pain. She had a cough and sputum change throughout the day she had weight gain over the last 3 months. Poor air movement on auscultation. On 15 L non-rebreather saturations were 98%. White blood cell count was 8.0, creatinine 2.4, BUN 49, eosinophils 0.1%. BNP was 94572, troponin positive at 0.684. COVID influenza and RSV RT PCR negative. ABG on 100% non-rebreather was 7.33/59/137. CT angiogram was negative for pulmonary embolism she had moderate bilateral pleural effusions right greater than left with atelectasis 1st pneumonia multiple 5 mm nodules. Minimal fluid around her liver. pleural effusions were present on 04/30/2024 but have increased in size bilaterally since then. She was treated with Lasix. 06/04/2024: Altered mental status. ABG 7.30/66/64 on 3 L nasal cannula. Placed on BiPAP rate of 18 with repeat blood gas 7.37/67/61. Her pressures were increased to 16/6. TSH 0.799. 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 Lovenox was stopped, broad-spectrum antibiotics and antiviral agents started and an LP was ordered. Patient was maintained on BiPAP. 06/06/2024: ABG on BiPAP 16/6 pH 7.45/56/54. 06/07/2024: Patient now refusing BiPAP she feels better denies shortness of breath. 06/08/2024: Patient use BiPAP for few hours. Feeling better. Creatinine 1.01. Patient treated with BiPAP rate of 18, pressure 16/6 with respiratory rate of 21, tidal volume 534 28% FiO2 with saturations 94%. 06/09/2024: Today the patient tells me she is breathing close to her baseline. She denies fever, chills, rigors, chest pain. She has no phlegm production. She said she did wear the BiPAP last night but it was uncomfortable. Patient is on 1 L nasal cannula with saturations 99%. I decreased her to room air and after 10 minutes she desatted to 88%. I placed her back on 1 L. Patient change his states she has had no change in her 1 pill orthopnea, she does have chronic pedal edema but no paroxysmal nocturnal dyspnea. The patient states she was uncomfortable on the BiPAP and I changed her to a noninvasive ventilator with the AVAPS mode and adjusted settings to comfort resulting in rate of 14, tidal volume 500, EPAP 8, minimal inspiratory pressure 9, maximal inspiratory pressure 25, inspiratory time 1.0, rise of 5 which is are slowest and 28% FiO2. Patient's weight today is 127 kg her weight on 06/03/2024 was 126.9 kg. On 05/04/2024 her discharge weight was 131 kg. Yesterday she was positive 1.1 L and cumulative she is positive 4.4 L since admission. DATA: 04/30/2024: Echo Summary 1. Technically suboptimal study due to poor sonographic images. 2. Definity contrast administered improved wall motion interpretation. 3. Left ventricular chamber dimension is normal. 4. Left ventricular systolic function is normal, estimated at 55-60%. 5. There is mild concentric increased left ventricular wall thickness. 6. The left ventricular diastolic function is abnormal. 7. E/e' 11 is mildly elevated. 8. Atrial fibrillation. 9. Right ventricular chamber dimension is moderately enlarged. 10. Left atrial chamber dimension is mildly enlarged. 11. Right atrial chamber dimension is mildly enlarged. 12. The mitral valve has mildly calcified annulus. 13. There is trace mitral valve regurgitation. 14. No pulmonary hypertension, estimated pulmonary arterial systolic pressure is 38 mmHg. Right Ventricle Right ventricular systolic function is normal and with normal TAPSE 2.3 cm. Right ventricular chamber dimension is moderately enlarged. 06/03/2024: CTA chest PE protocol Ordering provider: Barbara Franco MD History: 84 years Female with . hypoxia, elev dimer . Comparison: None. Technique: CT angiogram chest was performed following timed intravenous injection of contrast. Thin slice axial images and reformatted coronal images were obtained. Three dimensional reformatted images of the chest were also obtained using a [employer] workstation. . Automated exposure control and iterative reconstruction technique were employed. The dose-length product was 864.92 mGy-cm. 100 mL Omnipaque 350 was given IV. Findings: PULMONARY ARTERIES: No pulmonary embolus. VISUALIZED THORACIC INLET: Normal. MEDIASTINUM: Aorta/coronary arteries: Mild atheromatous disease. Heart/other: The heart is slightly enlarged. Lymph nodes: No mediastinal or hilar adenopathy. LUNGS: No pulmonary masses. Moderate bilateral pleural effusion with adjacent atelectasis versus pneumonia. Minimal groundglass appearance seen in the right upper lobe. Nodule is seen in the right upper lobe measuring 5 mm. Nodule in the middle lobe is also noted measuring 5 mm. Nodule in the left upper lobe measuring 6 mm.. No pneumothorax. VISUALIZED UPPER ABDOMEN: Highly suggestive cholelithiasis. Minimal fluid around the liver. Otherwise, the visualized upper abdomen is normal. MUSCULOSKELETAL: Soft tissues: The superficial soft tissues are normal. Bones: Age appropriate degenerative changes of the spine. Possibility of ankylosing spondylitis cannot be excluded. Vertebroplasty seen in L1 IMPRESSION: 1. No pulmonary embolism. 2. Bilateral moderate pleural effusion with atelectasis versus pneumonia. 3. Multiple nodules seen bilaterally which measures 5 mm. 6 months follow-up CT scan is advised. 4. Highly suggestive cholelithiasis. 5. Minimal fluid around the liver. 04/30/24: EXAMINATION: CTA chest PE abdomen pel DATE: 04/30/2024 11:28 INDICATION: Hypoxia TECHNIQUE: Computed tomography angiography (CTA) of the chest was performed with 100 mL Omnipaque-350 intravenous contrast timed to evaluate the pulmonary arteries. Coronal maximum intensity projection 3D-reconstructions were created by the technologist. Automated exposure control and iterative reconstruction technique were employed. Exam dose: 2456.46 mGy-cm total exam DLP. COMPARISON: 03/01/2022 PA and lateral chest FINDINGS: There is diagnostic contrast enhancement of the pulmonary arteries. There is mild pulmonary embolism involving the right upper and middle lobes. There is thoracic aortic calcification but no thoracic aortic aneurysm or dissection. There is enlargement of the lower pole of the left then the thyroid gland which extends into the superior mediastinum. No hilar or mediastinal mass lesion or lymphadenopathy is noted otherwise. Cardiomegaly. No pericardial effusion. There are moderate bilateral pleural effusions. There are bilateral lower lobe infiltrates as well as compressive atelectasis of both lower lobes secondary to the effusions. There is minimal dependent left upper lobe atelectasis. Status post cholecystectomy. No hepatic, splenic, pancreatic, adrenal space-occupying mass lesion. No bile duct or pancreatic duct dilatation is detected. 1 cm upper pole right renal cyst Approximately 3 mm nonobstructing right renal calculus. 3.4 cm exophytic left renal cyst. No ureteral calculus or hydroureteronephrosis is noted on either side. There is atherosclerotic calcification but normal caliber of the abdominal aorta. No intraperitoneal or retroperitoneal or pelvic mass lesion or adenopathy or ascites is noted. The urinary bladder is relatively evacuated and not optimally evaluated as a result. 2.4 cm probable serosal fibroid of the anterolateral left uterine body. No evidence of appendicitis. No bowel obstruction or intraperitoneal free air. Diffuse idiopathic skeletal hyperostosis of the thoracic spine Status post vertebroplasty at burst fracture deformity at T12. Prominent degenerative change at the possible joints of the lumbar spine with associated grade 1 anterolisthesis at L4-5. Approximately 1 cm sclerotic lesion of the left iliac crest, 1.9 cm sclerotic lesion of the right iliac crest, most likely benign bone islands IMPRESSION: Mild pulmonary embolism involving right upper and middle lobes Left thyroid enlargement Cardiomegaly Moderate bilateral pleural effusions Bilateral lower lobe infiltrates and atelectasis Status post cholecystectomy Bilateral renal cysts 3 mm nonobstructing right renal calculus Status post vertebroplasty at burst fracture of T12 Review of Systems Constitutional: Constitutional: Reports no additional constitutional complaints Eyes: Eyes: Reports no additional eye complaints ENT: Reports system reviewed and no additional complaints, except as documented Cardiovascular: Cardiovascular: Reports no additional cardiovascular complaints Respiratory: Respiratory: Reports no additional respiratory complaints Gastrointestinal: Gastrointestinal: Reports no additional gastrointestinal complaints Musculoskeletal: Musculoskeletal: Reports no additional musculoskeletal complaints Neurologic: Reports system reviewed and no additional complaints, except as documented Psychiatric: Psychiatric: Reports no additional psychiatric complaints Endocrine: Endocrine: Reports no additional endocrine complaints Hematologic/Lymphatic: Hematologic/Lymphatic: Reports no additional hematologic/lymphatic complaints Allergic/Immunologic: Allergic/Immunologic: Reports no additional allergic/immunologic complaints PMF Past Medical History Medical History Spondylosis with myelopathy, lumbar region Schatzki's ring Pre-diabetes Opioid dependence with current use Obesity hypoventilation syndrome Morbid obesity due to excess calories Keratolysis exfoliativa Esophageal web Anxiety Chronic kidney disease, stage 3a Diffuse idiopathic skeletal hyperostosis Allergic sinusitis Chronic low back pain Generalized anxiety disorder Gastro-esophageal reflux disease without esophagitis Body mass index (BMI) 40.0-44.9, adult Peripheral vascular disease, unspecified History of tobacco use Surgical History Surgical History History of esophageal dilatation History of meniscectomy of right knee History of vertebroplasty History of colonoscopy with polypectomy Family History Family History Mother Asthma Patient's mother is in good health Sibling Patient's sister is in good health Patient's brother is in good health Other Family history of arthritis Social History Social History Social History: Surrogate medical decision maker: Mami Burns, daughter. Code status: Full code. Smoking packs per day: 2 Smoking cigarettes per day: 40.0 Years smoked: 10 Smoking pack-years: 20.00 Smoking status: Former smoker Second hand tobacco smoke exposure: No Alcohol intake: unknown Substance use: never Substance use type: does not use Do You Feel Safe in your Home?: Yes Lack of Transportation: No Lack of Food: Never True Current Housing: I Have Housing Concerned About Future Housing: No Difficulty Paying Gas/Electric Bills: No Difficulty Paying for Meds: No Currently Unemployed: No Education: High School Diploma/GED Difficulty w/ Childcare or Family Care: No Living arrangements: with family Occupation/Education: retired Spiritual care concerns: No Agree to blood products: Yes Meds Home Medications and Allergies Home Medications ?Medication ?Instructions ?Recorded ?Confirmed ?Type loratadine 10 mg capsule 10 mg PO DAILY #100 caps 02/24/24 06/04/24 Rx losartan 25 mg tablet 25 mg PO DAILY #90 tabs 04/13/24 06/04/24 Rx omeprazole 40 mg capsule,delayed 40 mg PO DAILY 04/30/24 06/04/24 History release apixaban 5 mg tablet (Eliquis) 5 mg PO Q12HR #30 tabs 05/04/24 06/04/24 Rx clonazepam 0.5 mg tablet 0.5 mg PO DAILY PRN panic 05/04/24 06/04/24 Rx attack(s) #10 tabs doxycycline hyclate 100 mg tablet 100 mg PO Q12HR #1 tablet 05/04/24 06/04/24 Rx furosemide 20 mg tablet (Lasix) 20 mg PO DAILY #10 tabs 05/04/24 06/04/24 Rx metoprolol tartrate 50 mg tablet 50 mg PO Q12HR #30 tabs 05/04/24 06/04/24 Rx tramadol 50 mg tablet 50 mg PO DAILY #10 tabs 05/04/24 06/04/24 Rx atorvastatin 10 mg tablet 10 mg PO DAILY #90 tabs 05/30/24 06/04/24 Rx Allergies Allergy/AdvReac Type Severity Reaction Status Date / Time pravastatin Allergy Unknown unknown Verified 06/03/24 12:57 alendronate sodium AdvReac Unknown gastritis Verified 06/08/24 08:32 Vital Signs Vital Signs - 24 hr 06/08/24 15:17 06/08/24 16:00 06/08/24 16:00 Temperature 37.1 C Pulse Rate 100 100 Respiratory Rate 22 H Blood Pressure 125/69 Pulse Oximetry 92 98 Oxygen Delivery Nasal Cannula Oxygen Flow Rate 1 06/08/24 19:59 06/08/24 20:00 06/08/24 20:00 Temperature 36.4 C Pulse Rate 69 106 H Respiratory Rate 17 Blood Pressure 115/77 Pulse Oximetry 93 96 Oxygen Delivery Nasal Cannula Oxygen Flow Rate 1 06/08/24 21:42 06/08/24 22:37 06/08/24 22:47 Temperature 36.1 C L Pulse Rate 114 H 73 95 Respiratory Rate 18 Blood Pressure 121/77 Pulse Oximetry 94 Oxygen Delivery Oxygen Flow Rate 06/08/24 22:47 06/09/24 00:00 06/09/24 04:00 Temperature Pulse Rate 95 84 92 Respiratory Rate 21 H Blood Pressure Pulse Oximetry 94 Oxygen Delivery BiPAP Oxygen Flow Rate 06/09/24 04:00 06/09/24 07:43 06/09/24 08:59 Temperature 36.4 C 36.0 C L Pulse Rate 87 92 98 Respiratory Rate 20 20 Blood Pressure 118/73 131/71 Pulse Oximetry 97 98 Oxygen Delivery Oxygen Flow Rate 06/09/24 11:51 Temperature 36.5 C Pulse Rate 103 H Respiratory Rate 20 Blood Pressure 112/65 Pulse Oximetry 99 Oxygen Delivery Oxygen Flow Rate Exam Const: General: cooperative, comfortable and no acute distress Orientation/consciousness: oriented to person, oriented to place and oriented to time Other: morbid obesity HENMT: Head: normal to inspection Ears: hearing grossly normal bilaterally Eyes: General: appearance normal, both eyes and all related structures Neck: Neck: normal visual inspection Chest: Chest palpation & inspection: normal inspection of the chest Resp: Effort & Inspection: normal respiratory effort and able to speak in complete sentences Auscultation: no crackles, no rales, no rhonchi, no wheezes and diminished lung sounds Cardio: Jugular venous distension: no JVD GI: Inspection: normal to inspection GI Palp: No abdominal tenderness Skin: General skin exam: normal color Neuro: General: oriented to person, oriented to place and oriented to time Extrem: General: normal to inspection and edema Psych: Appearance: grossly normal Results Laboratory Findings 06/09/24 05:26 06/09/24 05:26 ABG, PT/INR, D-dimer: ABG ABG pH 7.450 (7.350-7.450) 06/06/24 05:13 ABG pCO2 56.1 mmHg (35.0-45.0) H 06/06/24 05:13 ABG pO2 54.4 mmHg (80.0-100.0) L 06/06/24 05:13 ABG O2 Saturation 89.0 % (95.0-100.0) L 06/06/24 05:13 PT/INR, D-dimer PT 15.9 Seconds (11.1-14.7) H 06/06/24 09:04 INR 1.2 06/06/24 09:04 D-Dimer 7.70 ug/mL (<0.48) H 06/03/24 15:26 Abnormal lab findings: Abnormal Labs 06/03/24 06/03/24 06/03/24 14:40 15:26 18:45 RBC Hct 47.8 H MCV MCHC 31.2 L RDW 15.0 H Plt Count MPV 11.4 H Immature Gran % (Auto) 0.6 H Neut % (Auto) 78.9 H Lymph % (Auto) 12.9 L [place] % (Auto) Baso % (Auto) 0.1 L [place] # (Auto) Abs Immat Gran (auto) 0.05 H Absolute Neuts (auto) Absolute Nucleated RBC 0.020 H Nucleated RBC % 0.3 H PT D-Dimer 7.70 H ABG pH 7.327 L ABG pCO2 59.2 H ABG pO2 137.0 H ABG HCO3 30.3 H ABG O2 Saturation Oxyhemoglobin Reduced Hemoglobin Sodium 133 L Potassium Chloride 93 L Carbon Dioxide 36 H Anion Gap BUN 49 H D Creatinine 2.40 H Estimated GFR 19 L Glucose 122 H POC Capillary Glucose Calcium 10.3 H Phosphorus AST 157 H ALT 102 H Alkaline Phosphatase 153 H Ammonia Total Creatine Kinase Troponin I 0.684 H* 0.603 H* NT-Pro-B Natriuret Pep 48263 H Total Protein Albumin Urine Nitrate Leukocyte Esterase Rfl Urine WBC Urine Bacteria CSF RBC CSF Total Protein Random Vancomycin 06/04/24 06/05/24 06/05/24 05:07 00:13 00:28 RBC Hct MCV MCHC 31.4 L RDW 14.7 H Plt Count MPV 11.1 H Immature Gran % (Auto) 0.6 H Neut % (Auto) 73.3 H Lymph % (Auto) 15.6 L [place] % (Auto) 9.7 H Baso % (Auto) 0.1 L [place] # (Auto) 0.9 H Abs Immat Gran (auto) 0.06 H Absolute Neuts (auto) 6.9 H Absolute Nucleated RBC Nucleated RBC % PT D-Dimer ABG pH 7.303 L ABG pCO2 65.9 H* ABG pO2 64.0 L ABG HCO3 31.9 H ABG O2 Saturation 89.7 L Oxyhemoglobin Reduced Hemoglobin 8.4 H Sodium 131 L Potassium Chloride 92 L Carbon Dioxide 37 H Anion Gap 2 L BUN 50 H Creatinine 2.20 H Estimated GFR 21 L Glucose POC Capillary Glucose 115 H Calcium Phosphorus AST 159 H ALT 108 H Alkaline Phosphatase 130 H Ammonia Total Creatine Kinase 330 H Troponin I 0.580 H* NT-Pro-B Natriuret Pep Total Protein Albumin Urine Nitrate Leukocyte Esterase Rfl Urine WBC Urine Bacteria CSF RBC CSF Total Protein Random Vancomycin 06/05/24 06/05/24 06/05/24 05:10 05:10 05:10 RBC Hct MCV 100.9 H MCHC 30.7 L RDW 14.6 H Plt Count 143 L MPV 11.0 H Immature Gran % (Auto) Neut % (Auto) Lymph % (Auto) [place] % (Auto) Baso % (Auto) [place] # (Auto) Abs Immat Gran (auto) Absolute Neuts (auto) Absolute Nucleated RBC Nucleated RBC % PT D-Dimer ABG pH ABG pCO2 ABG pO2 ABG HCO3 ABG O2 Saturation Oxyhemoglobin Reduced Hemoglobin Sodium 131 L 131 L Potassium Chloride 96 L 95 L Carbon Dioxide 37 H Anion Gap BUN Creatinine Estimated GFR Glucose POC Capillary Glucose Calcium Phosphorus AST ALT Alkaline Phosphatase Ammonia Total Creatine Kinase Troponin I NT-Pro-B Natriuret Pep Total Protein Albumin Urine Nitrate Leukocyte Esterase Rfl Urine WBC Urine Bacteria CSF RBC CSF Total Protein Random Vancomycin 06/05/24 06/05/24 06/05/24 05:10 05:10 05:10 RBC Hct MCV MCHC RDW Plt Count MPV Immature Gran % (Auto) Neut % (Auto) Lymph % (Auto) [place] % (Auto) Baso % (Auto) [place] # (Auto) Abs Immat Gran (auto) Absolute Neuts (auto) Absolute Nucleated RBC Nucleated RBC % PT D-Dimer ABG pH ABG pCO2 ABG pO2 ABG HCO3 ABG O2 Saturation Oxyhemoglobin Reduced Hemoglobin Sodium Potassium Chloride Carbon Dioxide 37 H Anion Gap -2 L -1 L BUN 47 H 46 H Creatinine 1.80 H Estimated GFR Glucose POC Capillary Glucose Calcium Phosphorus AST ALT Alkaline Phosphatase Ammonia Total Creatine Kinase Troponin I NT-Pro-B Natriuret Pep Total Protein Albumin Urine Nitrate Leukocyte Esterase Rfl Urine WBC Urine Bacteria CSF RBC CSF Total Protein Random Vancomycin 06/05/24 06/05/24 06/05/24 05:10 05:10 05:10 RBC Hct MCV MCHC RDW Plt Count MPV Immature Gran % (Auto) Neut % (Auto) Lymph % (Auto) [place] % (Auto) Baso % (Auto) [place] # (Auto) Abs Immat Gran (auto) Absolute Neuts (auto) Absolute Nucleated RBC Nucleated RBC % PT D-Dimer ABG pH ABG pCO2 ABG pO2 ABG HCO3 ABG O2 Saturation Oxyhemoglobin Reduced Hemoglobin Sodium Potassium Chloride Carbon Dioxide Anion Gap BUN Creatinine 1.80 H Estimated GFR 27 L 27 L Glucose POC Capillary Glucose Calcium Phosphorus AST 152 H ALT 104 H Alkaline Phosphatase Ammonia Total Creatine Kinase Troponin I NT-Pro-B Natriuret Pep Total Protein 6.0 L Albumin 3.4 L 3.4 L Urine Nitrate Leukocyte Esterase Rfl Urine WBC Urine Bacteria CSF RBC CSF Total Protein Random Vancomycin 06/05/24 06/05/24 06/05/24 07:28 13:35 17:48 RBC Hct MCV MCHC RDW Plt Count MPV Immature Gran % (Auto) Neut % (Auto) Lymph % (Auto) [place] % (Auto) Baso % (Auto) [place] # (Auto) Abs Immat Gran (auto) Absolute Neuts (auto) Absolute Nucleated RBC Nucleated RBC % PT D-Dimer ABG pH 7.302 L ABG pCO2 62.9 H* 66.8 H* ABG pO2 60.8 L ABG HCO3 30.4 H 37.7 H ABG O2 Saturation 89.8 L Oxyhemoglobin Reduced Hemoglobin 7.9 H Sodium Potassium Chloride Carbon Dioxide Anion Gap BUN Creatinine Estimated GFR Glucose POC Capillary Glucose Calcium Phosphorus AST ALT Alkaline Phosphatase Ammonia Total Creatine Kinase Troponin I NT-Pro-B Natriuret Pep Total Protein Albumin Urine Nitrate Positive H Leukocyte Esterase Rfl 1+ H Urine WBC 21-50 H Urine Bacteria 4+ H CSF RBC CSF Total Protein Random Vancomycin 06/06/24 06/06/24 06/06/24 04:28 05:13 09:04 RBC Hct MCV MCHC 31.5 L RDW 14.6 H Plt Count MPV 11.4 H Immature Gran % (Auto) Neut % (Auto) Lymph % (Auto) [place] % (Auto) Baso % (Auto) [place] # (Auto) Abs Immat Gran (auto) Absolute Neuts (auto) Absolute Nucleated RBC Nucleated RBC % PT 15.9 H D-Dimer ABG pH ABG pCO2 56.1 H ABG pO2 54.4 L ABG HCO3 38.1 H ABG O2 Saturation 89.0 L Oxyhemoglobin 89.0 L Reduced Hemoglobin Sodium 135 L Potassium Chloride 94 L Carbon Dioxide > 40 H Anion Gap BUN 33 H D Creatinine 1.20 H Estimated GFR 43 L Glucose POC Capillary Glucose Calcium Phosphorus 2.2 L AST 115 H ALT 82 H Alkaline Phosphatase Ammonia < 9 L Total Creatine Kinase Troponin I NT-Pro-B Natriuret Pep Total Protein 6.0 L Albumin 3.2 L Urine Nitrate Leukocyte Esterase Rfl Urine WBC Urine Bacteria CSF RBC CSF Total Protein Random Vancomycin 06/06/24 06/07/24 06/08/24 13:07 05:05 05:08 RBC 4.08 L 3.90 L Hct MCV 100.5 H 100.3 H MCHC 30.5 L 30.9 L RDW 14.9 H 14.9 H Plt Count 129 L 131 L MPV 11.1 H 11.5 H Immature Gran % (Auto) Neut % (Auto) Lymph % (Auto) [place] % (Auto) Baso % (Auto) [place] # (Auto) Abs Immat Gran (auto) Absolute Neuts (auto) Absolute Nucleated RBC Nucleated RBC % PT D-Dimer ABG pH ABG pCO2 ABG pO2 ABG HCO3 ABG O2 Saturation Oxyhemoglobin Reduced Hemoglobin Sodium 135 L 136 L Potassium 3.1 L 3.3 L Chloride 93 L 96 L Carbon Dioxide 38 H 38 H Anion Gap 2 L BUN 26 H 20 H Creatinine 1.09 H 1.01 H Estimated GFR 48 L 52 L Glucose POC Capillary Glucose Calcium Phosphorus 1.9 L 2.1 L AST 63 H 51 H ALT 59 H 50 H Alkaline Phosphatase Ammonia Total Creatine Kinase Troponin I NT-Pro-B Natriuret Pep Total Protein 6.0 L 6.0 L Albumin 3.0 L 3.0 L Urine Nitrate Leukocyte Esterase Rfl Urine WBC Urine Bacteria CSF RBC 6 H CSF Total Protein 67 H Random Vancomycin 23.8 H 06/09/24 06/09/24 05:22 05:26 RBC 3.94 L Hct MCV 101.0 H MCHC 30.2 L RDW 14.9 H Plt Count 121 L MPV 11.2 H Immature Gran % (Auto) Neut % (Auto) Lymph % (Auto) [place] % (Auto) Baso % (Auto) [place] # (Auto) Abs Immat Gran (auto) Absolute Neuts (auto) Absolute Nucleated RBC Nucleated RBC % PT D-Dimer ABG pH ABG pCO2 ABG pO2 ABG HCO3 ABG O2 Saturation Oxyhemoglobin Reduced Hemoglobin Sodium Potassium 3.3 L Chloride 95 L Carbon Dioxide > 40 H Anion Gap BUN Creatinine Estimated GFR 57 L Glucose POC Capillary Glucose Calcium Phosphorus 1.9 L AST 49 H ALT 47 H Alkaline Phosphatase Ammonia Total Creatine Kinase Troponin I NT-Pro-B Natriuret Pep 4320 H Total Protein 6.0 L Albumin 2.8 L Urine Nitrate Leukocyte Esterase Rfl Urine WBC Urine Bacteria CSF RBC CSF Total Protein Random Vancomycin
[2024-06-09 14:28] LABS: West Nile Virus, IgM <0.90 index
[2024-06-09] MEDS: levoFLOXacin 750 MG TABLET PO (16:47)
[2024-06-09] MEDS: MICONAZOLE NITRATE 2% CREAM 30 GM TUBE 1 APPLIC TOPICAL (22:36)
[2024-06-10] VITALS (13 sets, daily range): BP systolic 115–146; BP diastolic 62–83; PULSE 88–115; RESP 16–20; TEMP 35.7–36.4; O2SAT 93–96
[2024-06-10 09:04] LABS: Glucose Point of Care 150 mg/dl (65-105)
[2024-06-10] MEDS: ATORVASTATIN 10 MG TABLET PO (09:25)
[2024-06-10] MEDS: ASPIRIN 81 MG CHEWABLE TABLET PO (09:25)
[2024-06-10] MEDS: LORATADINE 10 MG TABLET PO (09:25)
[2024-06-10] MEDS: FUROSEMIDE INJ 40 MG/4 ML VIAL IV PUSH ×2 (09:25→16:11)
[2024-06-10] MEDS: APIXABAN 5 MG TABLET PO ×2 (09:25→21:01)
[2024-06-10] MEDS: CHOLECALCIFEROL 1,000 UNITS TABLET 1000 UNITS PO (09:25)
[2024-06-10] MEDS: PANTOPRAZOLE 40 MG TABLET PO (09:25)
[2024-06-10] MEDS: METOPROLOL TARTRATE 50 MG TAB PO ×2 (09:26→21:01)
[2024-06-10] MEDS: LACTIC ACID 12% LOTION 225 BTL 1 APPLIC TOPICAL ×2 (09:28→21:02)
[2024-06-10] MEDS: ACYCLOVIR SODIUM IVPB 800 MG in DEXTROSE 5% IN WATER 250 ML 266 MG IVPB ×2 (09:29→21:01)
[2024-06-10] MEDS: ACETAMINOPHEN 325 MG TABLET 650 MG PO ×2 (09:31→15:33)
--- NOTE | 2024-06-10 10:34 | PCNWS ---
Weekly nutritional screen. Patient is tolerating current diet with adequate intake. No weight loss reported. No nutritional needs at this time.
--- NOTE | 2024-06-10 10:39 | P.PNPL_ITS ---
Progress Note: A&P Assessment and Plan (1) Chronic respiratory failure with hypercapnia: Code(s): J96.12 - Chronic respiratory failure with hypercapnia Status: Acute Assessment and Plan: Patient has evidence of chronic hypercarbic respiratory failure. Serum bicarbonate on admission was 31. on admission on 06/03/2024 Blood gas on 10 L non-rebreather on admission was 7.33/59/137. on 06/05/2024 ABG 7.30/66/64 on 3 L nasal cannula. Placed on BiPAP rate of 18 with repeat blood gas 7.37/67/61. Her pressures were increased to 16/6. TSH 0.799. 06/06/2024: ABG on BiPAP 16/6 pH 7.45/56/54. patient has evidence of fluid overload with elevated BNP at 4320, CT scan of the chest with bilateral pleural effusions right greater than left that have increased in size since 04/30/2024, she has pedal edema. Etiology of chronic hypercarbic respiratory failure failure includes fluid overload, obesity hypoventilation syndrome. her thyroid studies are normal. Plan: Agree with as aggressive diuresis as tolerated by her cardiac and renal systems. When she is euvolemic without bilateral pleural effusions will repeat daytime ABG to assess for obesity hypoventilation syndrome. While she is in the hospital will continue noninvasive ventilation with the AVAPS mode with rate of 14, tidal volume 500, EPAP 8, minimal inspiratory pressure 9, maximal inspiratory pressure 25, inspiratory time 1.0, rise of 5 which is are slowest and 28% FiO2. she does not need antibiotics from a pulmonary perspective. I will check an ABG in the morning and an overnight oximetry on these settings. 06/10/24: Patient tells me she is breathing at her baseline today. She says her cough and phlegm production are at her normal level. Patient is on 1 L nasal cannula saturations 95%. I turned her to room air and her desaturations went to 89% and I placed her back on 1 L. patient wore the noninvasive ventilator with a fullface mask and the AVAPS settings as above overnight but said that she could not tolerate them. She says her breathing was bad and she could not sleep. She says she cannot tolerate this machine and will not try the machine at home. Patient had an overnight oximetry on 28% with recording duration 6 hours and 31 minutes, average saturation 95%, low saturation 77%, time with saturation less than or equal to 88% was 20 minutes, oxygen desaturation index 18.7. Plan: patient cannot tolerate noninvasive ventilation and I will discontinue this. she may have obesity hypoventilation syndrome but she cannot tolerate positive airway pressure. I will try to provide her with adequate oxygenation at night with supplemental oxygen. She says she is willing to wear nasal cannula oxygen at night and tonight I will order an overnight oximetry on 2 L. Inpatient Pulmonary consultative services will resume on 06/13/2024, call with questions. Discussed with Dr. Jeffers, will follow with you. (2) Acute exacerbation of congestive heart failure: Code(s): I50.9 - Heart failure, unspecified Status: Acute Assessment and Plan: 06/09/24: Patient's weight today is 127 kg her weight on 06/03/2024 was 126.9 kg. On 05/04/2024 her discharge weight was 131 kg. Yesterday she was positive 1.1 L and cumulative she is positive 4.4 L since admission. Plan: currently the patient is being diuresed with Lasix 40 IV b.i.d. 06/10/24: Patient is on Lasix 40 IV b.i.d.. Yesterday she was positive 1.1 L. Cumulative she is positive 3.8 L since admission. Her weight today is 124.9 with an admission weight of 126.9. Plan: Agree with as aggressive diuresis as tolerated by her cardiac and renal systems per hospitalist. Currently she is on Lasix 40 IV b.i.d.. Subjective Date/time seen: 06/10/24 10:39 Interval history: 06/09/2024: This is a new pulmonary consult for hypercarbic respiratory failure. 84-year-old with a history of atrial fibrillation on anticoagulation, congestive heart failure with preserved ejection fraction, morbid obesity, CKD, hypertension, hyperlipidemia, GERD, Pulmonary embolism. At baseline the patient tells me she is not on any home oxygen. She uses a walker and can walk half a block. This is unchanged over the last year. She has used a walker for 5 years. She lives alone and can do her own grocery shopping. Patient smokes cigarettes for 36 years at 1/4 pack per day for total of 12 pack years. She quit in 2004. She has never been on inhalers and never since been told she had COPD or asthma. Patient tells me she has never been tested for obstructive sleep apnea. She does snore but takes minimal maps has no morning headaches and feels refreshed when she wakes up. patient recently admitted to [facility] from 04/30/2020 [phone] with pulmonary embolism, pneumonia, AFib with RVR. she was treated with apixaban, Lasix, antibiotics. On 06/03/2024 she presented to the hospital with shortness of breath from her PCPs office. At the PCPs office she was hypoxic on room air heart rate was 120 with AFib in RVR and sent to the emergency department. Occasionally experience chest pain. She had a cough and sputum change throughout the day she had weight gain over the last 3 months. Poor air movement on auscultation. On 15 L non- rebreather saturations were 98%. White blood cell count was 8.0, creatinine 2.4, BUN 49, eosinophils 0.1%. BNP was 89199, troponin positive at 0.684. COVID influenza and RSV RT PCR negative. ABG on 100% non-rebreather was 7.33/59/137. CT angiogram was negative for pulmonary embolism she had moderate bilateral pleural effusions right greater than left with atelectasis 1st pneumonia multiple 5 mm nodules. Minimal fluid around her liver. pleural effusions were present on 04/30/2024 but have increased in size bilaterally since then. She was treated with Lasix. 06/04/2024: Altered mental status. ABG 7.30/66/64 on 3 L nasal cannula. Placed on BiPAP rate of 18 with repeat blood gas 7.37/67/61. Her pressures were increased to 16/6. TSH 0.799. 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 Lovenox was stopped, broad-spectrum antibiotics and antiviral agents started and an LP was ordered. Patient was maintained on BiPAP. 06/06/2024: ABG on BiPAP 16/6 pH 7.45/56/54. 06/07/2024: Patient now refusing BiPAP she feels better denies shortness of breath. 06/08/2024: Patient use BiPAP for few hours. Feeling better. Creatinine 1.01. Patient treated with BiPAP rate of 18, pressure 16/6 with respiratory rate of 21, tidal volume 534 28% FiO2 with saturations 94%. 06/09/2024: Today the patient tells me she is breathing close to her baseline. She denies fever, chills, rigors, chest pain. She has no phlegm production. She said she did wear the BiPAP last night but it was uncomfortable. Patient is on 1 L nasal cannula with saturations 99%. I decreased her to room air and after 10 minutes she desatted to 88%. I placed her back on 1 L. Patient change his states she has had no change in her 1 pill orthopnea, she does have chronic pedal edema but no paroxysmal nocturnal dyspnea. The patient states she was uncomfortable on the BiPAP and I changed her to a noninvasive ventilator with the AVAPS mode and adjusted settings to comfort resulting in rate of 14, tidal volume 500, EPAP 8, minimal inspiratory pressure 9, maximal inspiratory pressure 25, inspiratory time 1.0, rise of 5 which is are slowest and 28% FiO2. Patient's weight today is 127 kg her weight on 06/03/2024 was 126.9 kg. On 05/04/2024 her discharge weight was 131 kg. Yesterday she was positive 1.1 L and cumulative she is positive 4.4 L since admission. 06/10/24: Patient tells me she is breathing at her baseline today. She says her cough and phlegm production are at her normal level. Patient is on 1 L nasal cannula saturations 95%. I turned her to room air and her desaturations went to 89% and I placed her back on 1 L. Patient is on Lasix 40 IV b.i.d.. Yesterday she was positive 1.1 L. Cumulative she is positive 3.8 L since admission. Her weight today is 124.9 with an admission weight of 126.9. patient wore the noninvasive ventilator with a fullface mask and the AVAPS settings as above overnight but said that she could not tolerate them. She says her breathing was bad and she could not sleep. She says she cannot tolerate this machine and will not try the machine at home. Patient had an overnight oximetry on 28% with recording duration 6 hours and 31 minutes, average saturation 95%, low saturation 77%, time with saturation less than or equal to 88% was 20 minutes, oxygen desaturation index 18.7. DATA: 04/30/2024: Echo Summary 1. Technically suboptimal study due to poor sonographic images. 2. Definity contrast administered improved wall motion interpretation. 3. Left ventricular chamber dimension is normal. 4. Left ventricular systolic function is normal, estimated at 55-60%. 5. There is mild concentric increased left ventricular wall thickness. 6. The left ventricular diastolic function is abnormal. 7. E/e' 11 is mildly elevated. 8. Atrial fibrillation. 9. Right ventricular chamber dimension is moderately enlarged. 10. Left atrial chamber dimension is mildly enlarged. 11. Right atrial chamber dimension is mildly enlarged. 12. The mitral valve has mildly calcified annulus. 13. There is trace mitral valve regurgitation. 14. No pulmonary hypertension, estimated pulmonary arterial systolic pressure is 38 mmHg. Right Ventricle Right ventricular systolic function is normal and with normal TAPSE 2.3 cm. Right ventricular chamber dimension is moderately enlarged. 06/03/2024: CTA chest PE protocol Ordering provider: Barbara Franco MD History: 84 years Female with . hypoxia, elev dimer . Comparison: None. Technique: CT angiogram chest was performed following timed intravenous injection of contrast. Thin slice axial images and reformatted coronal images were obtained. Three dimensional reformatted images of the chest were also obtained using a [employer] workstation. . Automated exposure control and iterative reconstruction technique were employed. The dose-length product was 864.92 mGy- cm. 100 mL Omnipaque 350 was given IV. Findings: PULMONARY ARTERIES: No pulmonary embolus. VISUALIZED THORACIC INLET: Normal. MEDIASTINUM: Aorta/coronary arteries: Mild atheromatous disease. Heart/other: The heart is slightly enlarged. Lymph nodes: No mediastinal or hilar adenopathy. LUNGS: No pulmonary masses. Moderate bilateral pleural effusion with adjacent atelectasis versus pneumonia. Minimal groundglass appearance seen in the right upper lobe. Nodule is seen in the right upper lobe measuring 5 mm. Nodule in the middle lobe is also noted measuring 5 mm. Nodule in the left upper lobe measuring 6 mm.. No pneumothorax. VISUALIZED UPPER ABDOMEN: Highly suggestive cholelithiasis. Minimal fluid around the liver. Otherwise, the visualized upper abdomen is normal. MUSCULOSKELETAL: Soft tissues: The superficial soft tissues are normal. Bones: Age appropriate degenerative changes of the spine. Possibility of ankylosing spondylitis cannot be excluded. Vertebroplasty seen in L1 IMPRESSION: 1. No pulmonary embolism. 2. Bilateral moderate pleural effusion with atelectasis versus pneumonia. 3. Multiple nodules seen bilaterally which measures 5 mm. 6 months follow-up CT scan is advised. 4. Highly suggestive cholelithiasis. 5. Minimal fluid around the liver. 04/30/24: EXAMINATION: CTA chest PE abdomen pel DATE: 04/30/2024 11:28 INDICATION: Hypoxia TECHNIQUE: Computed tomography angiography (CTA) of the chest was performed with 100 mL Omnipaque-350 intravenous contrast timed to evaluate the pulmonary arteries. Coronal maximum intensity projection 3D-reconstructions were created by the technologist. Automated exposure control and iterative reconstruction technique were employed. Exam dose: 2456.46 mGy-cm total exam DLP. COMPARISON: 03/01/2022 PA and lateral chest FINDINGS: There is diagnostic contrast enhancement of the pulmonary arteries. There is mild pulmonary embolism involving the right upper and middle lobes. There is thoracic aortic calcification but no thoracic aortic aneurysm or dissection. There is enlargement of the lower pole of the left then the thyroid gland which extends into the superior mediastinum. No hilar or mediastinal mass lesion or lymphadenopathy is noted otherwise. Cardiomegaly. No pericardial effusion. There are moderate bilateral pleural effusions. There are bilateral lower lobe infiltrates as well as compressive atelectasis of both lower lobes secondary to the effusions. There is minimal dependent left upper lobe atelectasis. Status post cholecystectomy. No hepatic, splenic, pancreatic, adrenal space- occupying mass lesion. No bile duct or pancreatic duct dilatation is detected. 1 cm upper pole right renal cyst Approximately 3 mm nonobstructing right renal calculus. 3.4 cm exophytic left renal cyst. No ureteral calculus or hydroureteronephrosis is noted on either side. There is atherosclerotic calcification but normal caliber of the abdominal aorta. No intraperitoneal or retroperitoneal or pelvic mass lesion or adenopathy or ascites is noted. The urinary bladder is relatively evacuated and not optimally evaluated as a result. 2.4 cm probable serosal fibroid of the anterolateral left uterine body. No evidence of appendicitis. No bowel obstruction or intraperitoneal free air. Diffuse idiopathic skeletal hyperostosis of the thoracic spine Status post vertebroplasty at burst fracture deformity at T12. Prominent degenerative change at the possible joints of the lumbar spine with associated grade 1 anterolisthesis at L4-5. Approximately 1 cm sclerotic lesion of the left iliac crest, 1.9 cm sclerotic lesion of the right iliac crest, most likely benign bone islands IMPRESSION: Mild pulmonary embolism involving right upper and middle lobes Left thyroid enlargement Cardiomegaly Moderate bilateral pleural effusions Bilateral lower lobe infiltrates and atelectasis Status post cholecystectomy Bilateral renal cysts 3 mm nonobstructing right renal calculus Status post vertebroplasty at burst fracture of T12 Review of Systems Constitutional: Constitutional: Reports no additional constitutional complaints Eyes: Eyes: Reports no additional eye complaints ENT: Reports system reviewed and no additional complaints, except as documented Cardiovascular: Cardiovascular: Reports no additional cardiovascular complaints Respiratory: Respiratory: Reports no additional respiratory complaints Gastrointestinal: Gastrointestinal: Reports no additional gastrointestinal complaints Musculoskeletal: Musculoskeletal: Reports no additional musculoskeletal complaints Neurologic: Reports system reviewed and no additional complaints, except as documented Psychiatric: Psychiatric: Reports no additional psychiatric complaints Endocrine: Endocrine: Reports no additional endocrine complaints Hematologic/Lymphatic: Hematologic/Lymphatic: Reports no additional hematologic/lymphatic complaints Allergic/Immunologic: Allergic/Immunologic: Reports no additional allergic/immunologic complaints Exam Const: General: cooperative, comfortable and no acute distress Orientation/consciousness: oriented to person, oriented to place and oriented to time Other: morbid obesity HENMT: Head: normal to inspection Ears: hearing grossly normal bilaterally Eyes: General: appearance normal, both eyes and all related structures Neck: Neck: normal visual inspection Chest: Chest palpation & inspection: normal inspection of the chest Resp: Effort & Inspection: normal respiratory effort and able to speak in complete sentences Auscultation: crackles, no rales, no rhonchi, no wheezes and diminished lung sounds Cardio: Jugular venous distension: no JVD GI: Inspection: normal to inspection Skin: General skin exam: normal color Neuro: General: oriented to person, oriented to place and oriented to time Extrem: General: normal to inspection and edema Psych: Appearance: grossly normal Objective Data Vital Signs Vital Signs: Vital Signs - 24 hr 06/09/24 11:51 06/09/24 12:00 06/09/24 16:00 Temperature 36.5 C 36.8 C Pulse Rate 103 H 104 H 110 H Respiratory Rate 20 16 Blood Pressure 112/65 128/64 Pulse Oximetry 99 97 Oxygen Delivery Oxygen Flow Rate 06/09/24 16:00 06/09/24 20:00 06/09/24 20:26 Temperature Pulse Rate 104 H 94 96 Respiratory Rate Blood Pressure Pulse Oximetry Oxygen Delivery Oxygen Flow Rate 06/09/24 22:30 06/09/24 22:31 06/09/24 22:45 Temperature 36.6 C Pulse Rate 98 97 Respiratory Rate 20 16 26 H Blood Pressure 132/69 Pulse Oximetry 92 94 95 Oxygen Delivery Nasal Cannula Oxygen Flow Rate 1 06/09/24 22:45 06/10/24 00:00 06/10/24 02:00 Temperature Pulse Rate 94 94 Respiratory Rate 21 H 20 Blood Pressure Pulse Oximetry 97 94 Oxygen Delivery Oxygen Flow Rate 06/10/24 04:00 06/10/24 06:00 06/10/24 08:00 Temperature 36.4 C L 35.8 C L Pulse Rate 98 96 102 H Respiratory Rate 16 16 Blood Pressure 146/83 H 123/65 Pulse Oximetry 95 94 Oxygen Delivery Oxygen Flow Rate 06/10/24 09:26 Temperature Pulse Rate 88 Respiratory Rate Blood Pressure Pulse Oximetry Oxygen Delivery Oxygen Flow Rate Intake/Output Intake/Output: Intake & Output 06/07/24 06/08/24 06/09/24 06/10/24 23:59 23:59 23:59 23:59 Intake Total 2701.3 2602 952 376 Output Total 1100 1475 1450 1500 Balance 1601.3 1127 -498 -1124 Meds/Results Medications: Active Medications Generic Name Dose Route Start Last Admin Trade Name Freq PRN Reason Stop Dose Admin Acetaminophen 650 mg 06/03/24 18:29 06/10/24 09:31 Acetaminophen 325 Mg Tablet PO 650 mg Q4H PRN Administration Mild Pain (1-3) or Fever Apixaban 5 mg 06/04/24 21:00 06/10/24 09:25 Apixaban 5 Mg Tablet PO 5 mg Q12HR BEVERLY Administration Aspirin 81 mg 06/06/24 17:00 06/10/24 09:25 Aspirin 81 Mg Chewable Tablet PO 81 mg DAILY@0800 BEVERLY Administration Atorvastatin Calcium 10 mg 06/04/24 09:00 06/10/24 09:25 Atorvastatin 10 Mg Tablet PO 10 mg DAILY BEVERLY Administration Furosemide 40 mg 06/08/24 09:00 06/10/24 09:25 Furosemide Inj 40 Mg/4 Ml Vial IV PUSH 40 mg BID BEVERLY Administration Acyclovir Sodium 800 mg/ 266 mls @ 266 mls/hr 06/07/24 21:00 06/10/24 09:29 Dextrose IVPB 266 mls/hr Q12H BEVERLY Administration Lactic Acid 1 applic 06/08/24 21:00 06/10/24 09:28 Lactic Acid 12% Lotion 225 Btl TOPICAL 1 applic Q12HR BEVERLY Administration Levofloxacin 750 mg 06/09/24 15:00 06/09/24 16:47 Levofloxacin 750 Mg Tablet PO 06/15/24 14:01 750 mg DAILY@1400 BEVERLY Administration Loratadine 10 mg 06/04/24 09:00 06/10/24 09:25 Loratadine 10 Mg Tablet PO 10 mg DAILY BEVERLY Administration Metoprolol Tartrate 50 mg 06/04/24 21:00 06/10/24 09:26 Metoprolol Tartrate 50 Mg Tab PO 50 mg Q12HR BEVERLY Administration Miconazole Nitrate 1 applic 06/04/24 21:00 06/09/24 22:36 Miconazole Nitrate 2% Cream 30 Gm Tube TOPICAL 1 applic HS BEVERLY Administration Ondansetron HCl 4 mg 06/03/24 18:29 Ondansetron Inj 4 Mg/2 Ml Vial IV PUSH Q4H PRN Nausea Pantoprazole Sodium 40 mg 06/04/24 09:00 06/10/24 09:25 Pantoprazole 40 Mg Tablet PO 40 mg QAM ON LICENSE OF [facility] Administration Vitamin D 1,000 units 06/07/24 09:00 06/10/24 09:25 Cholecalciferol 1,000 Units Tablet PO 1,000 units DAILY BEVERLY Administration Radiology Results: ITS Impressions Chest CTA 06/03/24 17:13 IMPRESSION: 1. No pulmonary embolism. 2. Bilateral moderate pleural effusion with atelectasis versus pneumonia. 3. Multiple nodules seen bilaterally which measures 5 mm. 6 months follow-up CT scan is advised. 4. Highly suggestive cholelithiasis. 5. Minimal fluid around the liver. Head CT 06/04/24 07:53 IMPRESSION: Cerebral atherosclerosis No acute intracranial finding Brain MRI 06/05/24 15:11 IMPRESSION: 1. Mildly increased T2-weighted signal intensity in the medial temporal lobes bilaterally suspicious for HSV encephalitis. 2. 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 Venous Doppler Study 06/05/24 16:41 IMPRESSION: No deep venous thrombosis within the visualized portions of the bilateral upper extremities, as detailed above. Upper Quadrant Ultrasound 06/05/24 16:44 IMPRESSION: Poor visualization of the gallbladder and pancreas secondary to overlying bowel gas. Limited visualization of the liver. Cross-sectional imaging is suggested if patient is clinically able. Lumbar Puncture Fluoroscopy 06/06/24 13:53 IMPRESSION: 1. Successful fluoro-guided lumbar puncture. Chest X-Ray 06/09/24 16:51 IMPRESSION: Findings consistent with congestive failure demonstrating progression from 06/03/2024 Labs Labs: Laboratory Results - last 24 hr 06/05/24 06/06/24 06/09/24 16:46 13:07 05:22 POC Capillary Glucose NT-Pro-B Natriuret Pep 4320 H CSF Lactic Acid 14.2 West Nile Virus IgM Ab <0.90 06/09/24 21:12 POC Capillary Glucose 150 H NT-Pro-B Natriuret Pep CSF Lactic Acid West Nile Virus IgM Ab
--- NOTE | 2024-06-10 13:49 | P.PNIM_ITS ---
Progress Note: A&P Assessment and Plan (1) Acute respiratory failure with hypoxia: Code(s): J96.01 - Acute respiratory failure with hypoxia Status: Acute Assessment and Plan: Likely due to acute on chronic congestive heart failure associated with atrial fibrillation and rapid ventricular rate Not getting metoprolol or Eliquis due to her mental status change. Heart rate was poorly controlled but better now that she is getting her medications Also with hypercarbia treated with BiPAP. Probably untreated DORETHA ABG yesterday morning was 7.45/56/54 on bipap. Wean to room air as tolerated. Now refusing the bipap. Compliance was encouraged. Continue diuresis Pulmonary consulted regarding hypercapnic respiratory failure are tolerate AVAPS. Continued and O2 needs will be reassessed (2) Acute alteration in mental status: Code(s): R41.82 - Altered mental status, unspecified Status: Acute Assessment and Plan: This appears to be acute delirium probably related to acute respiratory failure. Consider also due to drug withdrawal as symptoms began at home with shakes and personality change and a feeling of her veins coursing (per phone conversation with daughter on 06/04/2024). Per other provider: On 06/04/24, daughter was in agreement with detox from opioids and benzodiazepines and avoiding these as long-term therapy CT brain showing no acute findings. TSH, B12 and folate normal. Ammonia <9. VitD level low so will replace. UA showing 1+ LE, +Nitrates and 21-50WBC. UCx ordered. 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 Lovenox stopped and LP ordered. Started on broad spectrum abx and anti-viral agents. Neuro consulted LP (06/06) showing normal opening pressure; 6 RBC, no WBC, Protein 67 and glucose 54. Continue current treatment plan. Will taper down antibiotics. Continue ceftriaxone for UTI gram-negative bacilli and urine culture pending identification Continue acyclovir until HSV PCR is back negative (3) Atrial fibrillation with rapid ventricular response: Code(s): I48.91 - Unspecified atrial fibrillation Status: Acute Assessment and Plan: Likely exacerbated by medication non adherence. Metoprolol was on hold while NPO. TSH normal. Echo showing EF 55-60%, RV pressure overload, severely enlarged RV with preserved RV fxn, mod-severe TR and severe pHTN. Metoprolol resumed and HR better. Eliquis was held for LP. Eliquis which he is now resumed now (4) Acute exacerbation of congestive heart failure: Code(s): I50.9 - Heart failure, unspecified Status: Acute Assessment and Plan: Echo as above. Likely dCHF with right sided failure due to medication non adherence and atrial fibrillation with rapid ventricular rate. Low dose Lasix started and she is tolerating this well. KEESHA has improved with Cr at 1.1 now. Still with +fluid balance related to IV abx Continue diuresis but advance dose. (5) Non-ST elevation [place] (NSTEMI): Code(s): I21.4 - Non-ST elevation (NSTEMI) myocardial infarction Status: Acute Assessment and Plan: Trop at 0.68 but flat. EKG showing AFib/RVR (123), low voltage, age- indeterminate anterior NH similar to prior EKG Echo as above. Suspect type 2 demand infarcts secondary to rapid atrial fibrillation ASA added. Continue Lipitor and metoprolol (6) Acute on chronic kidney failure: Code(s): N17.9 - Acute kidney failure, unspecified; N18.9 - Chronic kidney disease, unspecified Status: Acute Assessment and Plan: Baseline Cr 1.2-1.3. Cr 2.4 on admission. KEESHA related to CHF, AFib/RVR, and respiratory failure. Also received contrast with CTA chest so monitor for worsening renal function. Tolerating diuresis. Cr trending down to 1.1 Follow. Monitor UOP, electrolytes and renal fxn (7) Transaminitis: Code(s): R74.01 - Elevation of levels of liver transaminase levels Status: Acute Assessment and Plan: AST/ALT mildly elevated. and has been noted last month. Could be related to CHF. Hepatitis negative. SMITA US was very limited. LFTs better. Okay to continue Lpitor. Follow. Plan (+) DDimer - DDimer is 7. CTA negative for PE. UE and LE negative for DVT. DVT prophylaxis - Eliquis code status - full Subjective Date/time seen: 06/10/24 13:49 Interval history: No overnight events. Patient did not tolerate AVAPS last night discussed with Pulmonary. Is well otherwise. Review of Systems Review of Systems: All systems reviewed & are unremarkable except as noted in HPI and below Exam Narrative: Gen - NARD Chest -diminished breath sounds bilaterally no respiratory distress CV - irregular irregular; rate controlled Abd -soft. Obese. NT. Ext -legs are large with 1+ pitting edema. Neuro - alert adn appropriate Psych - normal mood and affect Skin - Warm and dry Objective Data Vital Signs Vital Signs: Vital Signs - 24 hr 06/09/24 16:00 06/09/24 16:00 06/09/24 20:00 Temperature 98.2 F Pulse Rate 110 H 104 H 94 Respiratory Rate 16 Blood Pressure 128/64 Pulse Oximetry 97 Oxygen Delivery Oxygen Flow Rate 06/09/24 20:26 06/09/24 22:30 06/09/24 22:31 Temperature 97.8 F Pulse Rate 96 98 Respiratory Rate 20 16 Blood Pressure 132/69 Pulse Oximetry 92 94 Oxygen Delivery Nasal Cannula Oxygen Flow Rate 1 06/09/24 22:45 06/09/24 22:45 06/10/24 00:00 Temperature Pulse Rate 97 94 Respiratory Rate 26 H 21 H Blood Pressure Pulse Oximetry 95 97 Oxygen Delivery Oxygen Flow Rate 06/10/24 02:00 06/10/24 04:00 06/10/24 06:00 Temperature 97.5 F L Pulse Rate 94 98 96 Respiratory Rate 20 16 Blood Pressure 146/83 H Pulse Oximetry 94 95 Oxygen Delivery Oxygen Flow Rate 06/10/24 08:00 06/10/24 09:26 06/10/24 09:31 Temperature 96.4 F L Pulse Rate 102 H 88 Respiratory Rate 16 Blood Pressure 123/65 Pulse Oximetry 94 Oxygen Delivery Nasal Cannula Oxygen Flow Rate 1 06/10/24 12:00 Temperature 96.2 F L Pulse Rate 98 Respiratory Rate 16 Blood Pressure 115/66 Pulse Oximetry 94 Oxygen Delivery Oxygen Flow Rate Intake/Output Intake/Output: Intake & Output 06/07/24 06/08/24 06/09/24 06/10/24 23:59 23:59 23:59 23:59 Intake Total 2701.3 2602 952 496 Output Total 1100 1475 1450 1500 Balance 1601.3 1127 -498 -1004 Meds/Results Medications: Active Medications Generic Name Dose Route Start Last Admin Trade Name Freq PRN Reason Stop Dose Admin Acetaminophen 650 mg 06/03/24 18:29 06/10/24 09:31 Acetaminophen 325 Mg Tablet PO 650 mg Q4H PRN Administration Mild Pain (1-3) or Fever Apixaban 5 mg 06/04/24 21:00 06/10/24 09:25 Apixaban 5 Mg Tablet PO 5 mg Q12HR [facility] Administration Aspirin 81 mg 06/06/24 17:00 06/10/24 09:25 Aspirin 81 Mg Chewable Tablet PO 81 mg DAILY@0800 [facility] Administration Atorvastatin Calcium 10 mg 06/04/24 09:00 06/10/24 09:25 Atorvastatin 10 Mg Tablet PO 10 mg DAILY [facility] Administration Furosemide 40 mg 06/08/24 09:00 06/10/24 09:25 Furosemide Inj 40 Mg/4 Ml Vial IV PUSH 40 mg BID [facility] Administration Acyclovir Sodium 800 mg/ 266 mls @ 266 mls/hr 06/07/24 21:00 06/10/24 09:29 Dextrose IVPB 266 mls/hr Q12H [facility] Administration Lactic Acid 1 applic 06/08/24 21:00 06/10/24 09:28 Lactic Acid 12% Lotion 225 Btl TOPICAL 1 applic Q12HR [facility] Administration Levofloxacin 750 mg 06/09/24 15:00 06/09/24 16:47 Levofloxacin 750 Mg Tablet PO 06/15/24 14:01 750 mg DAILY@1400 [facility] Administration Loratadine 10 mg 06/04/24 09:00 06/10/24 09:25 Loratadine 10 Mg Tablet PO 10 mg DAILY [facility] Administration Metoprolol Tartrate 50 mg 06/04/24 21:00 06/10/24 09:26 Metoprolol Tartrate 50 Mg Tab PO 50 mg Q12HR [facility] Administration Miconazole Nitrate 1 applic 06/04/24 21:00 06/09/24 22:36 Miconazole Nitrate 2% Cream 30 Gm Tube TOPICAL 1 applic HS [facility] Administration Ondansetron HCl 4 mg 06/03/24 18:29 Ondansetron Inj 4 Mg/2 Ml Vial IV PUSH Q4H PRN Nausea Pantoprazole Sodium 40 mg 06/04/24 09:00 06/10/24 09:25 Pantoprazole 40 Mg Tablet PO 40 mg QAM [facility] Administration Vitamin D 1,000 units 06/07/24 09:00 06/10/24 09:25 Cholecalciferol 1,000 Units Tablet PO 1,000 units DAILY [facility] Administration Radiology Results: ITS Impressions Chest CTA 06/03/24 17:13 IMPRESSION: 1. No pulmonary embolism. 2. Bilateral moderate pleural effusion with atelectasis versus pneumonia. 3. Multiple nodules seen bilaterally which measures 5 mm. 6 months follow-up CT scan is advised. 4. Highly suggestive cholelithiasis. 5. Minimal fluid around the liver. Head CT 06/04/24 07:53 IMPRESSION: Cerebral atherosclerosis No acute intracranial finding Brain MRI 06/05/24 15:11 IMPRESSION: 1. Mildly increased T2-weighted signal intensity in the medial temporal lobes bilaterally suspicious for HSV encephalitis. 2. 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 Venous Doppler Study 06/05/24 16:41 IMPRESSION: No deep venous thrombosis within the visualized portions of the bilateral upper extremities, as detailed above. Upper Quadrant Ultrasound 06/05/24 16:44 IMPRESSION: Poor visualization of the gallbladder and pancreas secondary to overlying bowel gas. Limited visualization of the liver. Cross-sectional imaging is suggested if patient is clinically able. Lumbar Puncture Fluoroscopy 06/06/24 13:53 IMPRESSION: 1. Successful fluoro-guided lumbar puncture. Chest X-Ray 06/09/24 16:51 IMPRESSION: Findings consistent with congestive failure demonstrating progression from 06/03/2024 Labs Labs: Laboratory Results - last 24 hr 06/05/24 06/06/24 06/09/24 16:46 13:07 21:12 POC Capillary Glucose 150 H CSF Lactic Acid 14.2 West Nile Virus IgM Ab <0.90
[2024-06-10] MEDS: levoFLOXacin 750 MG TABLET PO (15:33)
[2024-06-10] MEDS: MICONAZOLE NITRATE 2% CREAM 30 GM TUBE 1 APPLIC TOPICAL (21:02)
[2024-06-11] VITALS (12 sets, daily range): BP systolic 101–146; BP diastolic 59–90; PULSE 97–114; RESP 16–20; TEMP 36.1–36.6; O2SAT 94–100
[2024-06-11 03:43] LABS: Epstein Barr Virus DNA PCR NOT DETECTED; Herpes Simplex Type 1 DNA PCR NOT DETECTED; Herpes Simplex Type 2 DNA PCR NOT DETECTED; Source Epstein Barr Virus CEREBROSPINAL FLUID
[2024-06-11 06:17] LABS: Basophils Percent Auto 0.6 % (0.2-1.2); Eosinophils Absolute Auto 0.4 K/mm3 (0-0.3); Eosinophils Percent Auto 5.8 % (0-4.4); Hematocrit 40.2 % (37.0-47.0); Hemoglobin 12.1 g/dL (12.0-15.0); Immature Granulocyte Absolute 0.03 K/mm3 (0.00-0.031); Immature Granulocyte Percent A 0.4 % (0-0.5); Immature Platelet Fraction Pct 7.1 % (0.9-11.2); Lymphocytes Absolute Auto 1.71 K/mm3 (0.9-3.2); Lymphocytes Percent Auto 24.2 % (18.3-44.2); Mean Corpuscular HGB Conc 30.1 g/dl (32-36); Mean Corpuscular Hemoglobin 31.2 pg (26-34); Mean Corpuscular Volume 103.6 fl (80-100); Mean Platelet Volume 11.6 fl (7.4-10.4); Monocytes Absolute Auto 0.6 K/mm3 (0.1-0.6); Monocytes Percent Auto 8.9 % (2.6-8.5); Neutrophils Absolute Auto 4.3 K/mm3 (1.3-6.7); Neutrophils Percent Auto 60.1 % (45.5-73.1); Platelet Count Result 115 k/mm3 (150-375); Red Blood Count 3.88 M/mm3 (4.2-5.4); Red Cell Distribution Width 14.9 % (11.5-14.5); White Blood Count 7.1 K/mm3 (4.5-10.0)
[2024-06-11 06:36] LABS: Alanine Aminotransferase 38 U/L (6-35); Albumin Level 2.9 g/dL (3.5-5.1); Alkaline Phosphatase 66 U/L (38-126); Aspartate Amino Transferase 38 U/L (14-36); Bilirubin,Total 0.8 mg/dL (0.2-1.3); Blood Urea Nitrogen 11 mg/dL (7-17); Calcium 8.9 mg/dL (8.4-10.2); Chloride 92 mmol/L (98-107); Estimated CRCL calculation 60 ml/min; Estimated Glomerular Filt Rate > 60; Glucose 92 mg/dL (65-110); Magnesium 1.7 mg/dL (1.6-2.3); Potassium 3.1 mmol/L (3.4-5.0); Sodium 138 mmol/L (137-145)
[2024-06-11 07:15] LABS: Carbon Dioxide > 40 mmol/L (22-30)
[2024-06-11 08:11] LABS: Glucose Point of Care 141 mg/dl (65-105)
[2024-06-11 08:29] LABS: Source CEREBROSPINAL FLUID
[2024-06-11] MEDS: CHOLECALCIFEROL 1,000 UNITS TABLET 1000 UNITS PO (10:12)
[2024-06-11] MEDS: APIXABAN 5 MG TABLET PO ×2 (10:12→20:43)
[2024-06-11] MEDS: ATORVASTATIN 10 MG TABLET PO (10:12)
[2024-06-11] MEDS: LORATADINE 10 MG TABLET PO (10:12)
[2024-06-11] MEDS: FUROSEMIDE INJ 40 MG/4 ML VIAL IV PUSH ×2 (10:12→16:50)
[2024-06-11] MEDS: PANTOPRAZOLE 40 MG TABLET PO (10:12)
[2024-06-11] MEDS: METOPROLOL TARTRATE 50 MG TAB PO ×2 (10:12→20:43)
[2024-06-11] MEDS: ASPIRIN 81 MG CHEWABLE TABLET PO (10:12)
[2024-06-11] MEDS: LACTIC ACID 12% LOTION 225 BTL 1 APPLIC TOPICAL (10:13)
[2024-06-11] MEDS: ACETAMINOPHEN 325 MG TABLET 650 MG PO ×2 (10:13→16:55)
[2024-06-11] MEDS: ACYCLOVIR SODIUM IVPB 800 MG in DEXTROSE 5% IN WATER 250 ML 266 MG IVPB (10:13)
[2024-06-11] MEDS: levoFLOXacin 750 MG TABLET PO (13:39)
--- NOTE | 2024-06-11 13:54 | PM.IMPN ---
Progress Note: A&P Assessment and Plan (1) Acute respiratory failure with hypoxia: Code(s): J96.01 - Acute respiratory failure with hypoxia Status: Acute Assessment and Plan: Likely due to acute on chronic congestive heart failure associated with atrial fibrillation and rapid ventricular rate Not getting metoprolol or Eliquis due to her mental status change. Heart rate was poorly controlled but better now that she is getting her medications Also with hypercarbia treated with BiPAP. Probably untreated DORETHA ABG yesterday morning was 7.45/56/54 on bipap. Wean to room air as tolerated. Now refusing the bipap. Compliance was encouraged. Continue diuresis Pulmonary consulted regarding hypercapnic respiratory failure are tolerate AVAPS. Continued and O2 needs will be reassessed Overnight oxygen evaluation with apnea link review 2 L at night will be ordered. (2) Acute alteration in mental status: Code(s): R41.82 - Altered mental status, unspecified Status: Acute Assessment and Plan: This appears to be acute delirium probably related to acute respiratory failure. Consider also due to drug withdrawal as symptoms began at home with shakes and personality change and a feeling of her veins coursing (per phone conversation with daughter on 06/04/2024). Per other provider: On 06/04/24, daughter was in agreement with detox from opioids and benzodiazepines and avoiding these as long-term therapy CT brain showing no acute findings. TSH, B12 and folate normal. Ammonia <9. VitD level low so will replace. UA showing 1+ LE, +Nitrates and 21-50WBC. UCx ordered. 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 Lovenox stopped and LP ordered. Started on broad spectrum abx and anti-viral agents. Neuro consulted LP (06/06) showing normal opening pressure; 6 RBC, no WBC, Protein 67 and glucose 54. Continue current treatment plan. Will taper down antibiotics. Continue ceftriaxone for UTI gram-negative bacilli identified as Enterobacter cloaca. Started on levofloxacin HSV PCR came back negative. Will stop acyclovir (3) Atrial fibrillation with rapid ventricular response: Code(s): I48.91 - Unspecified atrial fibrillation Status: Acute Assessment and Plan: Likely exacerbated by medication non adherence. Metoprolol was on hold while NPO. TSH normal. Echo showing EF 55-60%, RV pressure overload, severely enlarged RV with preserved RV fxn, mod-severe TR and severe pHTN. Metoprolol resumed and HR better. Eliquis was held for LP. Eliquis which he is now resumed now (4) Acute exacerbation of congestive heart failure: Code(s): I50.9 - Heart failure, unspecified Status: Acute Assessment and Plan: Echo as above. Likely dCHF with right sided failure due to medication non adherence and atrial fibrillation with rapid ventricular rate. Low dose Lasix started and she is tolerating this well. KEESHA has improved with Cr at 1.1 now. Still with +fluid balance related to IV abx Continue diuresis but advance dose. US check with bilateral effusion right more than left Will give a dose of metolazone (5) Non-ST elevation [place] (NSTEMI): Code(s): I21.4 - Non-ST elevation (NSTEMI) myocardial infarction Status: Acute Assessment and Plan: Trop at 0.68 but flat. EKG showing AFib/RVR (123), low voltage, age-indeterminate anterior TX similar to prior EKG Echo as above. Suspect type 2 demand infarcts secondary to rapid atrial fibrillation ASA added. Continue Lipitor and metoprolol (6) Acute on chronic kidney failure: Code(s): N17.9 - Acute kidney failure, unspecified; N18.9 - Chronic kidney disease, unspecified Status: Acute Assessment and Plan: Baseline Cr 1.2-1.3. Cr 2.4 on admission. KEESHA related to CHF, AFib/RVR, and respiratory failure. Also received contrast with CTA chest so monitor for worsening renal function. Tolerating diuresis. Cr trending down to 1.1 Follow. Monitor UOP, electrolytes and renal fxn (7) Transaminitis: Code(s): R74.01 - Elevation of levels of liver transaminase levels Status: Acute Assessment and Plan: AST/ALT mildly elevated. and has been noted last month. Could be related to CHF. Hepatitis negative. SMITA US was very limited. LFTs better. Okay to continue Lpitor. Follow. Plan (+) DDimer - DDimer is 7. CTA negative for PE. UE and LE negative for DVT. DVT prophylaxis - Eliquis code status - full Subjective Date/time seen: 06/11/24 13:54 Interval history: Reports pain in her low back from laying in the bed. Breathing is getting better. No cough leg swelling persist. Review of Systems Review of Systems: All systems reviewed & are unremarkable except as noted in HPI and below Exam Narrative: Gen - NARD Chest -diminished breath sounds bilaterally no respiratory distress CV - irregular irregular; rate controlled Abd -soft. Obese. NT. Ext -legs are large with 1+ pitting edema. Neuro - alert adn appropriate Psych - normal mood and affect Skin - Warm and dry Objective Data Vital Signs Vital Signs: Vital Signs - 24 hr 06/10/24 14:29 06/10/24 16:00 06/10/24 20:00 Temperature Pulse Rate 100 108 H 106 H Respiratory Rate 20 Blood Pressure Pulse Oximetry 93 Oxygen Delivery Nasal Cannula Oxygen Flow Rate 1 06/10/24 21:01 06/10/24 22:00 06/11/24 00:00 Temperature 97.0 F L Pulse Rate 110 H 105 H 101 H Respiratory Rate 18 Blood Pressure 133/71 Pulse Oximetry 96 Oxygen Delivery Oxygen Flow Rate 06/11/24 04:00 06/11/24 05:18 06/11/24 06:00 Temperature 97.9 F Pulse Rate 104 H 109 H Respiratory Rate 20 Blood Pressure 146/90 H Pulse Oximetry 96 100 Oxygen Delivery Nasal Cannula Oxygen Flow Rate 2 06/11/24 08:00 06/11/24 10:11 06/11/24 10:12 Temperature Pulse Rate 97 114 H Respiratory Rate Blood Pressure Pulse Oximetry 98 Oxygen Delivery Nasal Cannula Oxygen Flow Rate 2 06/11/24 10:12 06/11/24 12:00 Temperature Pulse Rate 99 Respiratory Rate Blood Pressure Pulse Oximetry Oxygen Delivery Nasal Cannula Oxygen Flow Rate 1 Intake/Output Intake/Output: Intake & Output 06/08/24 06/09/24 06/10/24 06/11/24 23:59 23:59 23:59 23:59 Intake Total 2602 952 1148 400 Output Total 1475 1450 2940 1200 Balance 1127 -498 -1792 -800 Meds/Results Medications: Active Medications Generic Name Dose Route Start Last Admin Trade Name Freq PRN Reason Stop Dose Admin Acetaminophen 650 mg 06/03/24 18:29 06/11/24 10:13 Acetaminophen 325 Mg Tablet PO 650 mg Q4H PRN Administration Mild Pain (1-3) or Fever Apixaban 5 mg 06/04/24 21:00 06/11/24 10:12 Apixaban 5 Mg Tablet PO 5 mg Q12HR [facility] Administration Aspirin 81 mg 06/06/24 17:00 06/11/24 10:12 Aspirin 81 Mg Chewable Tablet PO 81 mg DAILY@0800 [facility] Administration Atorvastatin Calcium 10 mg 06/04/24 09:00 06/11/24 10:12 Atorvastatin 10 Mg Tablet PO 10 mg DAILY [facility] Administration Furosemide 40 mg 06/08/24 09:00 06/11/24 10:12 Furosemide Inj 40 Mg/4 Ml Vial IV PUSH 40 mg BID [facility] Administration Acyclovir Sodium 800 mg/ 266 mls @ 266 mls/hr 06/07/24 21:00 06/11/24 10:13 Dextrose IVPB 266 mls/hr Q12H [facility] Administration Lactic Acid 1 applic 06/08/24 21:00 06/11/24 10:13 Lactic Acid 12% Lotion 225 Btl TOPICAL 1 applic Q12HR [facility] Administration Levofloxacin 750 mg 06/09/24 15:00 06/11/24 13:39 Levofloxacin 750 Mg Tablet PO 06/15/24 14:01 750 mg DAILY@1400 [facility] Administration Loratadine 10 mg 06/04/24 09:00 06/11/24 10:12 Loratadine 10 Mg Tablet PO 10 mg DAILY [facility] Administration Metoprolol Tartrate 50 mg 06/04/24 21:00 06/11/24 10:12 Metoprolol Tartrate 50 Mg Tab PO 50 mg Q12HR [facility] Administration Miconazole Nitrate 1 applic 06/04/24 21:00 06/10/24 21:02 Miconazole Nitrate 2% Cream 30 Gm Tube TOPICAL 1 applic HS [facility] Administration Ondansetron HCl 4 mg 06/03/24 18:29 Ondansetron Inj 4 Mg/2 Ml Vial IV PUSH Q4H PRN Nausea Pantoprazole Sodium 40 mg 06/04/24 09:00 06/11/24 10:12 Pantoprazole 40 Mg Tablet PO 40 mg QAM [facility] Administration Vitamin D 1,000 units 06/07/24 09:00 06/11/24 10:12 Cholecalciferol 1,000 Units Tablet PO 1,000 units DAILY [facility] Administration Radiology Results: ITS Impressions Chest CTA 06/03/24 17:13 IMPRESSION: 1. No pulmonary embolism. 2. Bilateral moderate pleural effusion with atelectasis versus pneumonia. 3. Multiple nodules seen bilaterally which measures 5 mm. 6 months follow-up CT scan is advised. 4. Highly suggestive cholelithiasis. 5. Minimal fluid around the liver. Head CT 06/04/24 07:53 IMPRESSION: Cerebral atherosclerosis No acute intracranial finding Brain MRI 06/05/24 15:11 IMPRESSION: 1. Mildly increased T2-weighted signal intensity in the medial temporal lobes bilaterally suspicious for HSV encephalitis. 2. 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 Venous Doppler Study 06/05/24 16:41 IMPRESSION: No deep venous thrombosis within the visualized portions of the bilateral upper extremities, as detailed above. Upper Quadrant Ultrasound 06/05/24 16:44 IMPRESSION: Poor visualization of the gallbladder and pancreas secondary to overlying bowel gas. Limited visualization of the liver. Cross-sectional imaging is suggested if patient is clinically able. Lumbar Puncture Fluoroscopy 06/06/24 13:53 IMPRESSION: 1. Successful fluoro-guided lumbar puncture. Chest X-Ray 06/09/24 16:51 IMPRESSION: Findings consistent with congestive failure demonstrating progression from 06/03/2024 Chest Ultrasound 06/10/24 16:47 IMPRESSION: Bilateral pleural effusions, right greater than left. Bibasilar atelectasis/consolidation. Labs Labs: Laboratory Results - last 24 hr 06/06/24 06/10/24 06/11/24 13:07 21:48 05:31 WBC 7.1 RBC 3.88 L Hgb 12.1 Hct 40.2 MCV 103.6 H MCH 31.2 MCHC 30.1 L RDW 14.9 H Plt Count 115 L MPV 11.6 H Immature Gran % (Auto) 0.4 Neut % (Auto) 60.1 Lymph % (Auto) 24.2 [place] % (Auto) 8.9 H Eos % (Auto) 5.8 H Baso % (Auto) 0.6 Lymph # (Auto) 1.71 [place] # (Auto) 0.6 Eos # (Auto) 0.4 H Baso # (Auto) 0.0 Abs Immat Gran (auto) 0.03 Absolute Neuts (auto) 4.3 Absolute Nucleated RBC 0.000 Nucleated RBC % 0.0 % Immature Plt Fraction 7.1 Sodium 138 Potassium 3.1 L Chloride 92 L Carbon Dioxide > 40 H Anion Gap BUN 11 D Creatinine 0.77 Estim Creat Clear Calc 60 Estimated GFR > 60 Glucose 92 POC Capillary Glucose 141 H Calcium 8.9 Magnesium 1.7 Total Bilirubin 0.8 AST 38 H ALT 38 H Alkaline Phosphatase 66 Total Protein 6.0 L Albumin 2.9 L Fluid EBV Source Cerebrospinal fluid CSF Source Cerebrospinal fluid CSF EBV DNA (PCR) Not detected CSF Herpes I DNA (PCR) Not detected CSF Herpes II DNA (PCR) Not detected CSF West Nile RNA Not detected HSV (PCR) Source Cerebrospinal fluid
[2024-06-11] MEDS: metOLazone 2.5 MG TABLET PO (16:50)
[2024-06-11] MEDS: POTASSIUM CHLORIDE 20 MEQ ER TABLET 40 MEQ PO (16:50)
[2024-06-11] MEDS: LIDOCAINE 5% PATCH 1 PATCH TRANSDERM (16:51)
[2024-06-11 21:28] LABS: Cryptococcus Antigen NOT DETECTED; Cryptococcus Specimen Source SERUM
[2024-06-12] VITALS (10 sets, daily range): BP systolic 130–149; BP diastolic 61–85; PULSE 88–108; RESP 18; TEMP 36.3–36.6; O2SAT 96
[2024-06-12 02:21] LABS: Glucose Point of Care 129 mg/dl (65-105)
[2024-06-12] MEDS: MICONAZOLE NITRATE 2% CREAM 30 GM TUBE 1 APPLIC TOPICAL ×2 (04:31→22:26)
[2024-06-12] MEDS: LACTIC ACID 12% LOTION 225 BTL 1 APPLIC TOPICAL ×3 (04:31→22:26)
[2024-06-12 05:52] LABS: Basophils Absolute Auto 0.1 K/mm3 (0.0-0.1); Basophils Percent Auto 0.7 % (0.2-1.2); Eosinophils Absolute Auto 0.3 K/mm3 (0-0.3); Eosinophils Percent Auto 4.3 % (0-4.4); Hematocrit 40.8 % (37.0-47.0); Hemoglobin 12.1 g/dL (12.0-15.0); Immature Granulocyte Absolute 0.02 K/mm3 (0.00-0.031); Immature Granulocyte Percent A 0.3 % (0-0.5); Immature Platelet Fraction Pct 9.3 % (0.9-11.2); Lymphocytes Absolute Auto 1.88 K/mm3 (0.9-3.2); Lymphocytes Percent Auto 25.9 % (18.3-44.2); Mean Corpuscular HGB Conc 29.7 g/dl (32-36); Mean Corpuscular Volume 101.2 fl (80-100); Mean Platelet Volume 11.2 fl (7.4-10.4); Monocytes Absolute Auto 0.7 K/mm3 (0.1-0.6); Neutrophils Absolute Auto 4.3 K/mm3 (1.3-6.7); Neutrophils Percent Auto 58.8 % (45.5-73.1); Platelet Count Result 127 k/mm3 (150-375); Red Blood Count 4.03 M/mm3 (4.2-5.4); Red Cell Distribution Width 14.9 % (11.5-14.5); White Blood Count 7.3 K/mm3 (4.5-10.0)
[2024-06-12 06:23] LABS: Alanine Aminotransferase 36 U/L (6-35); Albumin Level 3.1 g/dL (3.5-5.1); Alkaline Phosphatase 68 U/L (38-126); Aspartate Amino Transferase 37 U/L (14-36); Blood Urea Nitrogen 10 mg/dL (7-17); Calcium 9.1 mg/dL (8.4-10.2); Chloride 90 mmol/L (98-107)
[2024-06-12 06:24] LABS: Bilirubin,Total 0.9 mg/dL (0.2-1.3); Estimated CRCL calculation 56 ml/min; Estimated Glomerular Filt Rate > 60; Glucose 101 mg/dL (65-110); Magnesium 1.7 mg/dL (1.6-2.3); Sodium 136 mmol/L (137-145)
[2024-06-12 06:34] LABS: Anisocytosis 1+; Schistocytes None Seen
[2024-06-12 06:35] LABS: Ovalocytes 1+; Platelet Estimate Decreased (Adequate)
[2024-06-12 08:37] LABS: Glucose Point of Care 115 mg/dl (65-105)
[2024-06-12] MEDS: POTASSIUM CHLORIDE 20 MEQ ER TABLET 40 MEQ PO (08:39)
[2024-06-12] MEDS: CHOLECALCIFEROL 1,000 UNITS TABLET 1000 UNITS PO (08:40)
[2024-06-12] MEDS: APIXABAN 5 MG TABLET PO ×2 (08:40→20:34)
[2024-06-12] MEDS: METOPROLOL TARTRATE 50 MG TAB PO ×2 (08:40→20:34)
[2024-06-12] MEDS: ATORVASTATIN 10 MG TABLET PO (08:40)
[2024-06-12] MEDS: LORATADINE 10 MG TABLET PO (08:40)
[2024-06-12] MEDS: PANTOPRAZOLE 40 MG TABLET PO (08:40)
[2024-06-12] MEDS: ASPIRIN 81 MG CHEWABLE TABLET PO (08:40)
[2024-06-12] MEDS: LIDOCAINE 5% PATCH 1 PATCH TRANSDERM (08:41)
[2024-06-12] MEDS: FUROSEMIDE INJ 40 MG/4 ML VIAL IV PUSH ×2 (08:41→17:27)
[2024-06-12] MEDS: MAGNESIUM SULF 1 GM/D5W 100 ML 1 GM/100 ML BAG IVPB (08:41)
[2024-06-12 09:48] LABS: Anion Gap 7 mmol/L (4-12); Carbon Dioxide 39 mmol/L (22-30)
--- NOTE | 2024-06-12 13:00 | P.PNIM_ITS ---
Progress Note: A&P Assessment and Plan (1) Acute respiratory failure with hypoxia: Code(s): J96.01 - Acute respiratory failure with hypoxia Status: Acute Assessment and Plan: Likely due to acute on chronic congestive heart failure associated with atrial fibrillation and rapid ventricular rate Not getting metoprolol or Eliquis due to her mental status change. Heart rate was poorly controlled but better now that she is getting her medications Also with hypercarbia treated with BiPAP. Probably untreated DORETHA ABG yesterday morning was 7.45/56/54 on bipap. Wean to room air as tolerated. Now refusing the bipap. Compliance was encouraged. Continue diuresis Pulmonary consulted regarding hypercapnic respiratory failure are tolerate AVAPS. Continued and O2 needs will be reassessed Overnight oxygen evaluation with apnea link review 2 L at night will be ordered. (2) Acute alteration in mental status: Code(s): R41.82 - Altered mental status, unspecified Status: Acute Assessment and Plan: This appears to be acute delirium probably related to acute respiratory failure. Consider also due to drug withdrawal as symptoms began at home with shakes and personality change and a feeling of her veins coursing (per phone conversation with daughter on 06/04/2024). Per other provider: On 06/04/24, daughter was in agreement with detox from opioids and benzodiazepines and avoiding these as long-term therapy CT brain showing no acute findings. TSH, B12 and folate normal. Ammonia <9. VitD level low so will replace. UA showing 1+ LE, +Nitrates and 21-50WBC. UCx ordered. 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 Lovenox stopped and LP ordered. Started on broad spectrum abx and anti-viral agents. Neuro consulted LP (06/06) showing normal opening pressure; 6 RBC, no WBC, Protein 67 and glucose 54. Continue current treatment plan. Will taper down antibiotics. Continue ceftriaxone for UTI gram-negative bacilli identified as Enterobacter cloaca. Started on levofloxacin HSV PCR came back negative. stopped acyclovir (3) Atrial fibrillation with rapid ventricular response: Code(s): I48.91 - Unspecified atrial fibrillation Status: Acute Assessment and Plan: Likely exacerbated by medication non adherence. Metoprolol was on hold while NPO. TSH normal. Echo showing EF 55-60%, RV pressure overload, severely enlarged RV with preserved RV fxn, mod-severe TR and severe pHTN. Metoprolol resumed and HR better. Eliquis was held for LP. Eliquis which he is now resumed now (4) Acute exacerbation of congestive heart failure: Code(s): I50.9 - Heart failure, unspecified Status: Acute Assessment and Plan: Echo as above. Likely dCHF with right sided failure due to medication non adh erence and atrial fibrillation with rapid ventricular rate. Low dose Lasix started and she is tolerating this well. KEESHA has improved with Cr at 1.1 now. Still with +fluid balance related to IV abx Continue diuresis but advance dose. US check with bilateral effusion right more than left dose of metolazone 06/11 (5) Non-ST elevation [place] (NSTEMI): Code(s): I21.4 - Non-ST elevation (NSTEMI) myocardial infarction Status: Acute Assessment and Plan: Trop at 0.68 but flat. EKG showing AFib/RVR (123), low voltage, age- indeterminate anterior [place] similar to prior EKG Echo as above. Suspect type 2 demand infarcts secondary to rapid atrial fibrillation ASA added. Continue Lipitor and metoprolol (6) Acute on chronic kidney failure: Code(s): N17.9 - Acute kidney failure, unspecified; N18.9 - Chronic kidney disease, unspecified Status: Acute Assessment and Plan: Baseline Cr 1.2-1.3. Cr 2.4 on admission. KEESHA related to CHF, AFib/RVR, and respiratory failure. Also received contrast with CTA chest so monitor for worsening renal function. Tolerating diuresis. Cr trending down to 1.1 Follow. Monitor UOP, electrolytes and renal fxn (7) Transaminitis: Code(s): R74.01 - Elevation of levels of liver transaminase levels Status: Acute Assessment and Plan: AST/ALT mildly elevated. and has been noted last month. Could be related to CHF. Hepatitis negative. SMITA US was very limited. LFTs better. Okay to continue Lpitor. Follow. Plan (+) DDimer - DDimer is 7. CTA negative for PE. UE and LE negative for DVT. DVT prophylaxis - Eliquis code status - full Subjective Date/time seen: 06/12/24 13:00 Interval history: no overnight events, back is okay. she is feeling better. breathing is better Review of Systems Review of Systems: All systems reviewed & are unremarkable except as noted in HPI and below Exam Narrative: Gen - NARD Chest -diminished breath sounds bilaterally no respiratory distress CV - irregular irregular; rate controlled Abd -soft. Obese. NT. Ext -legs are large with 1+ pitting edema. Neuro - alert adn appropriate Psych - normal mood and affect Skin - Warm and dry Objective Data Vital Signs Vital Signs: Vital Signs - 24 hr 06/11/24 14:21 06/11/24 16:00 06/11/24 20:43 Temperature 97.0 F L Pulse Rate 100 97 100 Respiratory Rate 17 Blood Pressure 101/59 L Pulse Oximetry 94 06/11/24 22:00 06/12/24 00:00 06/12/24 04:00 Temperature 97.2 F L Pulse Rate 103 H 95 93 Respiratory Rate 16 Blood Pressure 139/66 Pulse Oximetry 94 06/12/24 06:00 06/12/24 08:40 06/12/24 12:00 Temperature 97.4 F L Pulse Rate 99 96 91 Respiratory Rate 18 Blood Pressure 130/61 Pulse Oximetry 96 Intake/Output Intake/Output: Intake & Output 06/09/24 06/10/24 06/11/24 06/12/24 23:59 23:59 23:59 23:59 Intake Total 952 1148 1246 360 Output Total 1450 2940 1200 1000 Balance -498 -1792 46 -640 Meds/Results Medications: Active Medications Generic Name Dose Route Start Last Admin Trade Name Freq PRN Reason Stop Dose Admin Acetaminophen 650 mg 06/03/24 18:29 06/11/24 16:55 Acetaminophen 325 Mg Tablet PO 650 mg Q4H PRN Administration Mild Pain (1-3) or Fever Apixaban 5 mg 06/04/24 21:00 06/12/24 08:40 Apixaban 5 Mg Tablet PO 5 mg Q12HR BEVERLY Administration Aspirin 81 mg 06/06/24 17:00 06/12/24 08:40 Aspirin 81 Mg Chewable Tablet PO 81 mg DAILY@0800 [facility] Administration Atorvastatin Calcium 10 mg 06/04/24 09:00 06/12/24 08:40 Atorvastatin 10 Mg Tablet PO 10 mg DAILY [facility] Administration Furosemide 40 mg 06/08/24 09:00 06/12/24 08:41 Furosemide Inj 40 Mg/4 Ml Vial IV PUSH 40 mg BID BEVERLY Administration Lactic Acid 1 applic 06/08/24 21:00 06/12/24 08:42 Lactic Acid 12% Lotion 225 Btl TOPICAL 1 applic Q12HR BEVERLY Administration Levofloxacin 750 mg 06/09/24 15:00 06/11/24 13:39 Levofloxacin 750 Mg Tablet PO 06/15/24 14:01 750 mg DAILY@1400 [facility] Administration Lidocaine 1 patch 06/11/24 14:00 06/12/24 08:41 Lidocaine 5% Patch TRANSDERM 1 patch DAILY [facility] Administration Loratadine 10 mg 06/04/24 09:00 06/12/24 08:40 Loratadine 10 Mg Tablet PO 10 mg DAILY [facility] Administration Metoprolol Tartrate 50 mg 06/04/24 21:00 06/12/24 08:40 Metoprolol Tartrate 50 Mg Tab PO 50 mg Q12HR B[facility]LY Administration Miconazole Nitrate 1 applic 06/04/24 21:00 06/12/24 04:31 Miconazole Nitrate 2% Cream 30 Gm Tube TOPICAL 1 applic HS [facility] Administration Ondansetron HCl 4 mg 06/03/24 18:29 Ondansetron Inj 4 Mg/2 Ml Vial IV PUSH Q4H PRN Nausea Pantoprazole Sodium 40 mg 06/04/24 09:00 06/12/24 08:40 Pantoprazole 40 Mg Tablet PO 40 mg QAM [facility] Administration Vitamin D 1,000 units 06/07/24 09:00 06/12/24 08:40 Cholecalciferol 1,000 Units Tablet PO 1,000 units DAILY [facility] Administration Radiology Results: ITS Impressions Chest CTA 06/03/24 17:13 IMPRESSION: 1. No pulmonary embolism. 2. Bilateral moderate pleural effusion with atelectasis versus pneumonia. 3. Multiple nodules seen bilaterally which measures 5 mm. 6 months follow-up CT scan is advised. 4. Highly suggestive cholelithiasis. 5. Minimal fluid around the liver. Head CT 06/04/24 07:53 IMPRESSION: Cerebral atherosclerosis No acute intracranial finding Brain MRI 06/05/24 15:11 IMPRESSION: 1. Mildly increased T2-weighted signal intensity in the medial temporal lobes bilaterally suspicious for HSV encephalitis. 2. 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 Venous Doppler Study 06/05/24 16:41 IMPRESSION: No deep venous thrombosis within the visualized portions of the bilateral upper extremities, as detailed above. Upper Quadrant Ultrasound 06/05/24 16:44 IMPRESSION: Poor visualization of the gallbladder and pancreas secondary to overlying bowel gas. Limited visualization of the liver. Cross-sectional imaging is suggested if patient is clinically able. Lumbar Puncture Fluoroscopy 06/06/24 13:53 IMPRESSION: 1. Successful fluoro-guided lumbar puncture. Chest X-Ray 06/09/24 16:51 IMPRESSION: Findings consistent with congestive failure demonstrating progression from 06/03/2024 Chest Ultrasound 06/10/24 16:47 IMPRESSION: Bilateral pleural effusions, right greater than left. Bibasilar atelectasis/consolidation. Labs Labs: Laboratory Results - last 24 hr 06/06/24 06/11/24 06/12/24 13:07 19:49 05:18 WBC 7.3 RBC 4.03 L Hgb 12.1 Hct 40.8 MCV 101.2 H MCH 30.0 MCHC 29.7 L RDW 14.9 H Plt Count 127 L MPV 11.2 H Immature Gran % (Auto) 0.3 Neut % (Auto) 58.8 Lymph % (Auto) 25.9 [place] % (Auto) 10.0 H Eos % (Auto) 4.3 Baso % (Auto) 0.7 Lymph # (Auto) 1.88 [place] # (Auto) 0.7 H Eos # (Auto) 0.3 Baso # (Auto) 0.1 Abs Immat Gran (auto) 0.02 Absolute Neuts (auto) 4.3 Absolute Nucleated RBC 0.000 Nucleated RBC % 0.0 Platelet Estimate Decreased % Immature Plt Fraction 9.3 Anisocytosis 1+ Ovalocytes 1+ Schistocytes None seen Sodium 136 L Potassium 3.0 L Chloride 90 L Carbon Dioxide 39 H Anion Gap 7 BUN 10 Creatinine 0.83 Estim Creat Clear Calc 56 Estimated GFR > 60 Glucose 101 POC Capillary Glucose 129 H Calcium 9.1 Magnesium 1.7 Total Bilirubin 0.9 AST 37 H ALT 36 H Alkaline Phosphatase 68 Total Protein 6.0 L Albumin 3.1 L Cryptococcus Source Serum Cryptococcus Ag Not detected 06/12/24 08:34 WBC RBC Hgb Hct MCV MCH MCHC RDW Plt Count MPV Immature Gran % (Auto) Neut % (Auto) Lymph % (Auto) [place] % (Auto) Eos % (Auto) Baso % (Auto) Lymph # (Auto) [place] # (Auto) Eos # (Auto) Baso # (Auto) Abs Immat Gran (auto) Absolute Neuts (auto) Absolute Nucleated RBC Nucleated RBC % Platelet Estimate % Immature Plt Fraction Anisocytosis Ovalocytes Schistocytes Sodium Potassium Chloride Carbon Dioxide Anion Gap BUN Creatinine Estim Creat Clear Calc Estimated GFR Glucose POC Capillary Glucose 115 H Calcium Magnesium Total Bilirubin AST ALT Alkaline Phosphatase Total Protein Albumin Cryptococcus Source Cryptococcus Ag
[2024-06-12] MEDS: levoFLOXacin 750 MG TABLET PO (13:03)
[2024-06-13] VITALS (11 sets, daily range): BP systolic 109–135; BP diastolic 61–68; PULSE 76–112; RESP 18–20; TEMP 36.3–36.8; O2SAT 93–98
[2024-06-13 00:45] LABS: Glucose Point of Care 137 mg/dl (65-105)
[2024-06-13 06:09] LABS: Basophils Absolute Auto 0.1 K/mm3 (0.0-0.1); Basophils Percent Auto 0.7 % (0.2-1.2); Eosinophils Absolute Auto 0.3 K/mm3 (0-0.3); Eosinophils Percent Auto 4.3 % (0-4.4); Hematocrit 40.7 % (37.0-47.0); Hemoglobin 12.4 g/dL (12.0-15.0); Immature Granulocyte Absolute 0.02 K/mm3 (0.00-0.031); Immature Granulocyte Percent A 0.3 % (0-0.5); Lymphocytes Absolute Auto 2.19 K/mm3 (0.9-3.2); Lymphocytes Percent Auto 30.1 % (18.3-44.2); Mean Corpuscular HGB Conc 30.5 g/dl (32-36); Mean Corpuscular Hemoglobin 30.8 pg (26-34); Mean Platelet Volume 12.1 fl (7.4-10.4); Monocytes Absolute Auto 0.7 K/mm3 (0.1-0.6); Monocytes Percent Auto 9.5 % (2.6-8.5); Neutrophils Percent Auto 55.1 % (45.5-73.1); Platelet Count Result 133 k/mm3 (150-375); Red Blood Count 4.03 M/mm3 (4.2-5.4); Red Cell Distribution Width 14.9 % (11.5-14.5); White Blood Count 7.3 K/mm3 (4.5-10.0)
[2024-06-13 06:22] LABS: Alanine Aminotransferase 36 U/L (6-35); Albumin Level 3.1 g/dL (3.5-5.1); Alkaline Phosphatase 65 U/L (38-126); Aspartate Amino Transferase 40 U/L (14-36); Blood Urea Nitrogen 12 mg/dL (7-17); Calcium 9.3 mg/dL (8.4-10.2); Chloride 87 mmol/L (98-107); Estimated CRCL calculation 46 ml/min; Estimated Glomerular Filt Rate 51; Glucose 94 mg/dL (65-110); Magnesium 1.7 mg/dL (1.6-2.3); Potassium 3.3 mmol/L (3.4-5.0); Sodium 135 mmol/L (137-145)
[2024-06-13 06:38] LABS: Carbon Dioxide > 40 mmol/L (22-30)
[2024-06-13] MEDS: ASPIRIN 81 MG CHEWABLE TABLET PO (08:58)
[2024-06-13] MEDS: APIXABAN 5 MG TABLET PO ×2 (08:58→20:53)
[2024-06-13] MEDS: METOPROLOL TARTRATE 50 MG TAB PO ×2 (08:58→20:54)
[2024-06-13] MEDS: CHOLECALCIFEROL 1,000 UNITS TABLET 1000 UNITS PO (08:58)
[2024-06-13] MEDS: FUROSEMIDE INJ 40 MG/4 ML VIAL IV PUSH ×2 (08:58→17:41)
[2024-06-13] MEDS: PANTOPRAZOLE 40 MG TABLET PO (08:59)
[2024-06-13] MEDS: LORATADINE 10 MG TABLET PO (08:59)
[2024-06-13] MEDS: ATORVASTATIN 10 MG TABLET PO (08:59)
[2024-06-13] MEDS: LIDOCAINE 5% PATCH 1 PATCH TRANSDERM (08:59)
[2024-06-13] MEDS: LACTIC ACID 12% LOTION 225 BTL 1 APPLIC TOPICAL ×2 (09:00→20:54)
[2024-06-13] MEDS: levoFLOXacin 750 MG TABLET PO (14:34)
--- NOTE | 2024-06-13 14:41 | P.PNIM_ITS ---
Progress Note: A&P Assessment and Plan (1) Generalized anxiety disorder: Code(s): F41.1 - Generalized anxiety disorder Status: Acute (2) Essential (primary) hypertension: Code(s): I10 - Essential (primary) hypertension Status: Acute (3) Suspected congestive heart failure: Code(s): R09.89 - Other specified symptoms and signs involving the circulatory and respiratory systems Status: Acute (4) Cardiomegaly: Code(s): I51.7 - Cardiomegaly Status: Acute (5) Acute heart failure: Code(s): I50.9 - Heart failure, unspecified Status: Acute (6) Acute exacerbation of congestive heart failure: Code(s): I50.9 - Heart failure, unspecified Status: Acute (7) Atrial fibrillation with rapid ventricular response: Code(s): I48.91 - Unspecified atrial fibrillation Status: Acute (8) Mixed hyperlipidemia: Code(s): E78.2 - Mixed hyperlipidemia Status: Acute Plan (1) Acute respiratory failure with hypoxia: Code(s): J96.01 - Acute respiratory failure with hypoxia Status: Acute Assessment and Plan: Likely due to acute on chronic congestive heart failure associated with atrial fibrillation and rapid ventricular rate Not getting metoprolol or Eliquis due to her mental status change. Heart rate was poorly controlled but better now that she is getting her medications Also with hypercarbia treated with BiPAP. Probably untreated DORETHA ABG yesterday morning was 7.45/56/54 on bipap. Wean to room air as tolerated. Now refusing the bipap. Compliance was encouraged. Continue diuresis Pulmonary consulted regarding hypercapnic respiratory failure are tolerate AVAPS. Continued and O2 needs will be reassessed Overnight oxygen evaluation with apnea link review 2 L at night will be ordered. (2) Acute alteration in mental status: Code(s): R41.82 - Altered mental status, unspecified Status: Acute Assessment and Plan: This appears to be acute delirium probably related to acute respiratory failure. Consider also due to drug withdrawal as symptoms began at home with shakes and personality change and a feeling of her veins coursing (per phone conversation with daughter on 06/04/2024). Per other provider: On 06/04/24, daughter was in agreement with detox from opioids and benzodiazepines and avoiding these as long-term therapy CT brain showing no acute findings. TSH, B12 and folate normal. Ammonia <9. VitD level low so will replace. UA showing 1+ LE, +Nitrates and 21-50WBC. UCx ordered. 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 Lovenox stopped and LP ordered. Started on broad spectrum abx and anti-viral agents. Neuro consulted LP (06/06) showing normal opening pressure; 6 RBC, no WBC, Protein 67 and glucose 54. Continue current treatment plan. Will taper down antibiotics. Continue ceftriaxone for UTI gram-negative bacilli identified as Enterobacter cloaca. Started on levofloxacin HSV PCR came back negative. stopped acyclovir (3) Atrial fibrillation with rapid ventricular response: Code(s): I48.91 - Unspecified atrial fibrillation Status: Acute Assessment and Plan: Likely exacerbated by medication non adherence. Metoprolol was on hold while NPO. TSH normal. Echo showing EF 55-60%, RV pressure overload, severely enlarged RV with preserved RV fxn, mod-severe TR and severe pHTN. Metoprolol resumed and HR better. Eliquis was held for LP. Eliquis which he is now resumed now (4) Acute exacerbation of congestive heart failure: Code(s): I50.9 - Heart failure, unspecified Status: Acute Assessment and Plan: Echo as above. Likely dCHF with right sided failure due to medication non adherence and atrial fibrillation with rapid ventricular rate. Low dose Lasix started and she is tolerating this well. KEESHA has improved with Cr at 1.1 now. Still with +fluid balance related to IV abx Continue diuresis but advance dose. US check with bilateral effusion right more than left dose of metolazone 06/11 (5) Non-ST elevation [place] (NSTEMI): Code(s): I21.4 - Non-ST elevation (NSTEMI) myocardial infarction Status: Acute Assessment and Plan: Trop at 0.68 but flat. EKG showing AFib/RVR (123), low voltage, age- indeterminate anterior [place] similar to prior EKG Echo as above. Suspect type 2 demand infarcts secondary to rapid atrial fibrillation ASA added. Continue Lipitor and metoprolol (6) Acute on chronic kidney failure: Code(s): N17.9 - Acute kidney failure, unspecified; N18.9 - Chronic kidney disease, unspecified Status: Acute Assessment and Plan: Baseline Cr 1.2-1.3. Cr 2.4 on admission. KEESHA related to CHF, AFib/RVR, and respiratory failure. Also received contrast with CTA chest so monitor for worsening renal function. Tolerating diuresis. Cr trending down to 1.1 Follow. Monitor UOP, electrolytes and renal fxn (7) Transaminitis: Code(s): R74.01 - Elevation of levels of liver transaminase levels Status: Acute Assessment and Plan: AST/ALT mildly elevated. and has been noted last month. Could be related to CHF. Hepatitis negative. SMITA US was very limited. LFTs better. Okay to continue Lpitor. Follow. Plan (+) DDimer - DDimer is 7. CTA negative for PE. UE and LE negative for DVT. DVT prophylaxis - Eliquis code status - full Subjective Date/time seen: 06/13/24 14:41 Interval history: no overnight events, back is okay. she is feeling better. breathing is better, still has dyspnea but improving. Denies chest pain palpitation. Afebrile blood pressure stable I reviewed labs Exam Narrative: GENERAL: Pleasant, in no acute distress. Well-nourished. Obesity - EYES: EOMI. Anicteric. - HENT: Moist mucous membranes. - LUNGS: Clear to auscultation bilateral ly, no wheezing, rhonchi, or rales. - CARDIOVASCULAR: Regular rate and rhyth m. No murmur. No JVD. - ABDOMEN: Soft, non-tender and non-dist ended. No palpable masses. - EXTREMITIES: No edema. Peripheral puls es 2+. Non-tender. - NEUROLOGIC: No focal neurological defi cits. CN II-XII grossly intact. - PSYCHIATRIC: Awake, Alert and oriented x 3. Appropriate mood and affect. - SKIN: No rashes or lesions. Warm. - LYMPH: No cervical lymphadenopathy. Objective Data Vital Signs Vital Signs: Vital Signs - 24 hr 06/12/24 16:00 06/12/24 20:00 06/12/24 20:34 Temperature Pulse Rate 102 H 108 H 104 H Respiratory Rate Blood Pressure Pulse Oximetry Oxygen Delivery Oxygen Flow Rate Fraction of Inspired Oxygen 06/12/24 22:00 06/13/24 00:00 06/13/24 04:00 Temperature 97.5 F L Pulse Rate 106 H 94 95 Respiratory Rate 18 Blood Pressure 131/62 Pulse Oximetry 96 Oxygen Delivery Oxygen Flow Rate Fraction of Inspired Oxygen 06/13/24 06:00 06/13/24 08:58 06/13/24 08:58 Temperature 97.4 F L Pulse Rate 95 99 Respiratory Rate 18 Blood Pressure 135/67 Pulse Oximetry 97 93 Oxygen Delivery Nasal Cannula Oxygen Flow Rate 1 Fraction of Inspired Oxygen 06/13/24 13:31 Temperature 98.2 F Pulse Rate 97 Respiratory Rate 18 Blood Pressure 109/61 Pulse Oximetry 96 Oxygen Delivery Oxygen Flow Rate Fraction of Inspired Oxygen Intake/Output Intake/Output: Intake & Output 06/10/24 06/11/24 06/12/24 06/13/24 23:59 23:59 23:59 23:59 Intake Total 1148 1246 720 700 Output Total 2940 1200 1001 1600 Balance -1792 46 -281 -900 Meds/Results Medications: Active Medications Generic Name Dose Route Start Last Admin Trade Name Freq PRN Reason Stop Dose Admin Acetaminophen 650 mg 06/03/24 18:29 06/11/24 16:55 Acetaminophen 325 Mg Tablet PO 650 mg Q4H PRN Administration Mild Pain (1-3) or Fever Apixaban 5 mg 06/04/24 21:00 06/13/24 08:58 Apixaban 5 Mg Tablet PO 5 mg Q12HR BEVERLY Administration Aspirin 81 mg 06/06/24 17:00 06/13/24 08:58 Aspirin 81 Mg Chewable Tablet PO 81 mg DAILY@0800 [facility] Administration Atorvastatin Calcium 10 mg 06/04/24 09:00 06/13/24 08:59 Atorvastatin 10 Mg Tablet PO 10 mg DAILY [facility] Administration Furosemide 40 mg 06/08/24 09:00 06/13/24 08:58 Furosemide Inj 40 Mg/4 Ml Vial IV PUSH 40 mg BID BEVERLY Administration Lactic Acid 1 applic 06/08/24 21:00 06/13/24 09:00 Lactic Acid 12% Lotion 225 Btl TOPICAL 1 applic Q12HR [facility] Administration Levofloxacin 750 mg 06/09/24 15:00 06/13/24 14:34 Levofloxacin 750 Mg Tablet PO 06/15/24 14:01 750 mg DAILY@1400 [facility] Administration Lidocaine 1 patch 06/11/24 14:00 06/13/24 08:59 Lidocaine 5% Patch TRANSDERM 1 patch DAILY [facility] Administration Loratadine 10 mg 06/04/24 09:00 06/13/24 08:59 Loratadine 10 Mg Tablet PO 10 mg DAILY [facility] Administration Metoprolol Tartrate 50 mg 06/04/24 21:00 06/13/24 08:58 Metoprolol Tartrate 50 Mg Tab PO 50 mg Q12HR [facility] Administration Miconazole Nitrate 1 applic 06/04/24 21:00 06/12/24 22:26 Miconazole Nitrate 2% Cream 30 Gm Tube TOPICAL 1 applic HS [facility] Administration Ondansetron HCl 4 mg 06/03/24 18:29 Ondansetron Inj 4 Mg/2 Ml Vial IV PUSH Q4H PRN Nausea Pantoprazole Sodium 40 mg 06/04/24 09:00 06/13/24 08:59 Pantoprazole 40 Mg Tablet PO 40 mg QAM [facility] Administration Vitamin D 1,000 units 06/07/24 09:00 06/13/24 08:58 Cholecalciferol 1,000 Units Tablet PO 1,000 units DAILY [facility] Administration Radiology Results: ITS Impressions Chest CTA 06/03/24 17:13 IMPRESSION: 1. No pulmonary embolism. 2. Bilateral moderate pleural effusion with atelectasis versus pneumonia. 3. Multiple nodules seen bilaterally which measures 5 mm. 6 months follow-up CT scan is advised. 4. Highly suggestive cholelithiasis. 5. Minimal fluid around the liver. Head CT 06/04/24 07:53 IMPRESSION: Cerebral atherosclerosis No acute intracranial finding Brain MRI 06/05/24 15:11 IMPRESSION: 1. Mildly increased T2-weighted signal intensity in the medial temporal lobes bilaterally suspicious for HSV encephalitis. 2. 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 Venous Doppler Study 06/05/24 16:41 IMPRESSION: No deep venous thrombosis within the visualized portions of the bilateral upper extremities, as detailed above. Upper Quadrant Ultrasound 06/05/24 16:44 IMPRESSION: Poor visualization of the gallbladder and pancreas secondary to overlying bowel gas. Limited visualization of the liver. Cross-sectional imaging is suggested if patient is clinically able. Lumbar Puncture Fluoroscopy 06/06/24 13:53 IMPRESSION: 1. Successful fluoro-guided lumbar puncture. Chest X-Ray 06/09/24 16:51 IMPRESSION: Findings consistent with congestive failure demonstrating progression from 06/03/2024 Chest Ultrasound 06/10/24 16:47 IMPRESSION: Bilateral pleural effusions, right greater than left. Bibasilar atelectasis/consolidation. Labs Labs: Laboratory Results - last 24 hr 06/12/24 06/13/24 22:04 05:20 WBC 7.3 RBC 4.03 L Hgb 12.4 Hct 40.7 MCV 101.0 H MCH 30.8 MCHC 30.5 L RDW 14.9 H Plt Count 133 L MPV 12.1 H Immature Gran % (Auto) 0.3 Neut % (Auto) 55.1 Lymph % (Auto) 30.1 [place] % (Auto) 9.5 H Eos % (Auto) 4.3 Baso % (Auto) 0.7 Lymph # (Auto) 2.19 [place] # (Auto) 0.7 H Eos # (Auto) 0.3 Baso # (Auto) 0.1 Abs Immat Gran (auto) 0.02 Absolute Neuts (auto) 4.0 Absolute Nucleated RBC 0.000 Nucleated RBC % 0.0 Sodium 135 L Potassium 3.3 L Chloride 87 L Carbon Dioxide > 40 H Anion Gap BUN 12 Creatinine 1.03 H Estim Creat Clear Calc 46 Estimated GFR 51 L Glucose 94 POC Capillary Glucose 137 H Calcium 9.3 Magnesium 1.7 Total Bilirubin 1.0 AST 40 H ALT 36 H Alkaline Phosphatase 65 Total Protein 6.0 L Albumin 3.1 L
[2024-06-13] MEDS: ACETAMINOPHEN 325 MG TABLET 650 MG PO (17:45)
--- NOTE | 2024-06-13 20:40 | P.PNPL_ITS ---
Progress Note: A&P Assessment and Plan (1) Chronic respiratory failure with hypercapnia: Code(s): J96.12 - Chronic respiratory failure with hypercapnia Status: Acute Assessment and Plan: Patient has evidence of chronic hypercarbic respiratory failure. Serum bicarbonate on admission was 31. on admission on 06/03/2024 Blood gas on 10 L non-rebreather on admission was 7.33/59/137. on 06/05/2024 ABG 7.30/66/64 on 3 L nasal cannula. Placed on BiPAP rate of 18 with repeat blood gas 7.37/67/61. Her pressures were increased to 16/6. TSH 0.799. 06/06/2024: ABG on BiPAP 16/6 pH 7.45/56/54. Patient has evidence of fluid overload with elevated BNP at 4320, CT scan of the chest with bilateral pleural effusions right greater than left that have increased in size since 04/30/2024, she has pedal edema. Etiology of chronic hypercarbic respiratory failure failure includes fluid overload, obesity hypoventilation syndrome. her thyroid studies are normal. Plan: Agree with as aggressive diuresis as tolerated by her cardiac and renal systems. When she is euvolemic without bilateral pleural effusions will repeat daytime ABG to assess for obesity hypoventilation syndrome. While she is in the hospital will continue noninvasive ventilation with the AVAPS mode with rate of 14, tidal volume 500, EPAP 8, minimal inspiratory pressure 9, maximal inspiratory pressure 25, inspiratory time 1.0, rise of 5 which is are slowest and 28% FiO2. she does not need antibiotics from a pulmonary perspective. I will check an ABG in the morning and an overnight oximetry on these settings. 06/10/24: Patient tells me she is breathing at her baseline today. She says her cough and phlegm production are at her normal level. Patient is on 1 L nasal cannula saturations 95%. I turned her to room air and her desaturations went to 89% and I placed her back on 1 L. patient wore the noninvasive ventilator with a fullface mask and the AVAPS settings as above overnight but said that she could not tolerate them. She says her breathing was bad and she could not sleep. She says she cannot tolerate this machine and will not try the machine at home. Patient had an overnight oximetry on 28% with recording duration 6 hours and 31 minutes, average saturation 95%, low saturation 77%, time with saturation less than or equal to 88% was 20 minutes, oxygen desaturation index 18.7. Plan: patient cannot tolerate noninvasive ventilation and I will discontinue this. she may have obesity hypoventilation syndrome but she cannot tolerate positive airway pressure. I will try to provide her with adequate oxygenation at night with supplemental oxygen. She says she is willing to wear nasal cannula oxygen at night and tonight I will order an overnight oximetry on 2 L. 06/14/24; she is stable, ready for discharge, can follow up with pulmonary in the ofice in 3-4 weeks. No supplemental oxygen needed at rest. Oxygen 2 L a minute needed with sleep. This is a new oxygen prescription. (2) Acute exacerbation of congestive heart failure: Code(s): I50.9 - Heart failure, unspecified Status: Acute Assessment and Plan: 06/09/24: Patient's weight today is 127 kg her weight on 06/03/2024 was 126.9 kg. On 05/04/2024 her discharge weight was 131 kg. Yesterday she was positive 1.1 L and cumulative she is positive 4.4 L since admission. Plan: currently the patient is being diuresed with Lasix 40 IV b.i.d. 06/10/24: Patient is on Lasix 40 IV b.i.d.. Yesterday she was positive 1.1 L. Cumulative she is positive 3.8 L since admission. Her weight today is 124.9 wi th an admission weight of 126.9. Plan: Agree with as aggressive diuresis as tolerated by her cardiac and renal systems per hospitalist. Currently she is on Lasix 40 IV b.i.d. 06/14/24: she has been diuresed, current weight today is 118.5 kg, has been as high as 131 kg in May, mostly 126-128 kg this admission. Improved. O2 weaned off. Plan OK to go home from pulmonary standpoint. No O2 needed at rest. She can use O2 @ 2 L/min with sleep. She does not want any evaluation of her sleep as far as sleep studies or using PAP therapy. Subjective Date/time seen: 06/13/24 20:40 Interval history: 06/09/2024: This is a new pulmonary consult for hypercarbic respiratory failure. 84-year-old with a history of atrial fibrillation on anticoagulation, congestive heart failure with preserved ejection fraction, morbid obesity, CKD, hypertension, hyperlipidemia, GERD, Pulmonary embolism. At baseline the patient tells me she is not on any home oxygen. She uses a walker and can walk half a block. This is unchanged over the last year. She has used a walker for 5 years. She lives alone and can do her own grocery shopping. Patient smokes cigarettes for 36 years at 1/4 pack per day for total of 12 pack years. She quit in 2004. She has never been on inhalers and never since been told she had COPD or asthma. Patient tells me she has never been tested for obstructive sleep apnea. She does snore but takes minimal maps has no morning headaches and feels refreshed when she wakes up. patient recently admitted to [facility] from 04/30/2020 [phone] with pulmonary embolism, pneumonia, AFib with RVR. she was treated with apixaban, Lasix, antibiotics. On 06/03/2024 she presented to the hospital with shortness of breath from her PCPs office. At the PCPs office she was hypoxic on room air heart rate was 120 with AFib in RVR and sent to the emergency department. Occasionally experience chest pain. She had a cough and sputum change throughout the day she had weight gain over the last 3 months. Poor air movement on auscultation. On 15 L non- rebreather saturations were 98%. White blood cell count was 8.0, creatinine 2.4, BUN 49, eosinophils 0.1%. BNP was 71960, troponin positive at 0.684. COVID influenza and RSV RT PCR negative. ABG on 100% non-rebreather was 7.33/59/137. CT angiogram was negative for pulmonary embolism she had moderate bilateral pleural effusions right greater than left with atelectasis 1st pneumonia multiple 5 mm nodules. Minimal fluid around her liver. pleural effu sions were present on 04/30/2024 but have increased in size bilaterally since then. She was treated with Lasix. 06/04/2024: Altered mental status. ABG 7.30/66/64 on 3 L nasal cannula. Placed on BiPAP rate of 18 with repeat blood gas 7.37/67/61. Her pressures were increased to 16/6. TSH 0.799. 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 Lovenox was stopped, broad-spectrum antibiotics and antiviral agents started and an LP was ordered. Patient was maintained on BiPAP. 06/06/2024: ABG on BiPAP 16/6 pH 7.45/56/54. 06/07/2024: Patient now refusing BiPAP she feels better denies shortness of breath. 06/08/2024: Patient use BiPAP for few hours. Feeling better. Creatinine 1.01. Patient treated with BiPAP rate of 18, pressure 16/6 with respiratory rate of 21, tidal volume 534 28% FiO2 with saturations 94%. 06/09/2024: Today the patient tells me she is breathing close to her baseline. She denies fever, chills, rigors, chest pain. She has no phlegm production. She said she did wear the BiPAP last night but it was uncomfortable. Patient is on 1 L nasal cannula with saturations 99%. I decreased her to room air and after 10 minutes she desatted to 88%. I placed her back on 1 L. Patient change his states she has had no change in her 1 pill orthopnea, she does have chronic pedal edema but no paroxysmal nocturnal dyspnea. The patient states she was uncomfortable on the BiPAP and I changed her to a noninvasive ventilator with the AVAPS mode and adjusted settings to comfort resulting in rate of 14, tidal volume 500, EPAP 8, minimal inspiratory pressure 9, maximal inspiratory pressure 25, inspiratory time 1.0, rise of 5 which is are slowest and 28% FiO2. Patient's weight today is 127 kg her weight on 06/03/2024 was 126.9 kg. On 05/04/2024 her discharge weight was 131 kg. Yesterday she was positive 1.1 L and cumulative she is positive 4.4 L since admission. 06/10/24: Patient tells me she is breathing at her baseline today. She says her cough and phlegm production are at her normal level. Patient is on 1 L nasal cannula saturations 95%. I turned her to room air and her desaturations went to 89% and I placed her back on 1 L. Patient is on Lasix 40 IV b.i.d.. Yesterday she was positive 1.1 L. Cumulative she is positive 3.8 L since admission. Her weight today is 124.9 with an admission weight of 126.9. patient wore the noninvasive ventilator with a fullface mask and the AVAPS settings as above overnight but said that she could not tolerate them. She says her breathing was bad and she could not sleep. She says she cannot tolerate this machine and will not try the machine at home. Patient had an overnight oximetry on 28% with recording duration 6 hours and 31 minutes, average saturation 95%, low saturation 77%, time with saturation less than or equal to 88% was 20 minutes, oxygen desaturation index 18.7. 06/14/24: She is significantly better, had a limited home O2 study, does not need O2 with walking in the day, does need O2 at night. She wants to go home today, lives in her own house, her daughter daughter lives [address] Patient does not want to go to any kind of rehab. She is sedentary. This is a new oxygen prescription for her to use at home. 2 L with sleep. DATA: 04/30/2024: Echo Summary 1. Technically suboptimal study due to poor sonographic images. 2. Definity contrast administered improved wall motion interpretation. 3. Left ventricular chamber dimension is normal. 4. Left ventricular systolic function is normal, estimated at 55-60%. 5. There is mild concentric increased left ventricular wall thickness. 6. The left ventricular diastolic function is abnormal. 7. E/e' 11 is mildly elevated. 8. Atrial fibrillation. 9. Right ventricular chamber dimension is moderately enlarged. 10. Left atrial chamber dimension is mildly enlarged. 11. Right atrial chamber dimension is mildly enlarged. 12. The mitral valve has mildly calcified annulus. 13. There is trace mitral valve regurgitation. 14. No pulmonary hypertension, estimated pulmonary arterial systolic pressure is 38 mmHg. Right Ventricle Right ventricular systolic function is normal and with normal TAPSE 2.3 cm. Right ventricular chamber dimension is moderately enlarged. 06/03/2024: CTA chest PE protocol Ordering provider: Barbara Franco MD History: 84 years Female with . hypoxia, elev dimer . Comparison: None. Technique: CT angiogram chest was performed following timed intravenous injection of contrast. Thin slice axial images and reformatted coronal images were obtained. Three dimensional reformatted images of the chest were also obtained using a [employer] workstation. . Automated exposure control and iterative reconstruction technique were employed. The dose-length product was 864.92 mGy- cm. 100 mL Omnipaque 350 was given IV. Findings: PULMONARY ARTERIES: No pulmonary embolus. VISUALIZED THORACIC INLET: Normal. MEDIASTINUM: Aorta/coronary arteries: Mild atheromatous disease. Heart/other: The heart is slightly enlarged. Lymph nodes: No mediastinal or hilar adenopathy. LUNGS: No pulmonary masses. Moderate bilateral pleural effusion with adjacent atelectasis versus pneumonia. Minimal groundglass appearance seen in the right upper lobe. Nodule is seen in the right upper lobe measuring 5 mm. Nodule in the middle lobe is also noted measuring 5 mm. Nodule in the left upper lobe measuring 6 mm.. No pneumothorax. VISUALIZED UPPER ABDOMEN: Highly suggestive cholelithiasis. Minimal fluid around the liver. Otherwise, the visualized upper abdomen is normal. MUSCULOSKELETAL: Soft tissues: The superficial soft tissues are normal. Bones: Age appropriate degenerative changes of the spine. Possibility of ankylosing spondylitis cannot be excluded. Vertebroplasty seen in L1 IMPRESSION: 1. No pulmonary embolism. 2. Bilateral moderate pleural effusion with atelectasis versus pneumonia. 3. Multiple nodules seen bilaterally which measures 5 mm. 6 months follow-up CT scan is advised. 4. Highly suggestive cholelithiasis. 5. Minimal fluid around the liver. 04/30/24: EXAMINATION: CTA chest PE abdomen pel DATE: 04/30/2024 11:28 INDICATION: Hypoxia TECHNIQUE: Computed tomography angiography (CTA) of the chest was performed with 100 mL Omnipaque-350 intravenous contrast timed to evaluate the pulmonary arteries. Coronal maximum intensity projection 3D-reconstructions were created by the technologist. Automated exposure control and iterative reconstruction technique were employed. Exam dose: 2456.46 mGy-cm total exam DLP. COMPARISON: 03/01/2022 PA and lateral chest FINDINGS: There is diagnostic contrast enhancement of the pulmonary arteries. There is mild pulmonary embolism involving the right upper and middle lobes. There is thoracic aortic calcification but no thoracic aortic aneurysm or dissection. There is enlargement of the lower pole of the left then the thyroid gland which extends into the superior mediastinum. No hilar or mediastinal mass lesion or lymphadenopathy is noted otherwise. Cardiomegaly. No pericardial effusion. There are moderate bilateral pleural effusions. There are bilateral lower lobe infiltrates as well as compressive atelectasis of both lower lobes secondary to the effusions. There is minimal dependent left upper lobe atelectasis. Status post cholecystectomy. No hepatic, splenic, pancreatic, adrenal space- occupying mass lesion. No bile duct or pancreatic duct dilatation is detected. 1 cm upper pole right renal cyst Approximately 3 mm nonobstructing right renal calculus. 3.4 cm exophytic left renal cyst. No ureteral calculus or hydroureteronephrosis is noted on either side. There is atherosclerotic calcification but normal caliber of the abdominal aorta. No intraperitoneal or retroperitoneal or pelvic mass lesion or adenopathy or ascites is noted. The urinary bladder is relatively evacuated and not optimally evaluated as a result. 2.4 cm probable serosal fibroid of the anterolateral left uterine body. No evidence of appendicitis. No bowel obstruction or intraperitoneal free air. Diffuse idiopathic skeletal hyperostosis of the thoracic spine Status post vertebroplasty at burst fracture deformity at T12. Prominent degenerative change at the possible joints of the lumbar spine with associated grade 1 anterolisthesis at L4-5. Approximately 1 cm sclerotic lesion of the left iliac crest, 1.9 cm sclerotic lesion of the right iliac crest, most likely benign bone islands IMPRESSION: Mild pulmonary embolism involving right upper and middle lobes Left thyroid enlargement Cardiomegaly Moderate bilateral pleural effusions Bilateral lower lobe infiltrates and atelectasis Status post cholecystectomy Bilateral renal cysts 3 mm nonobstructing right renal calculus Status post vertebroplasty at burst fracture of T12 Review of Systems Review of Systems: All systems reviewed & are unremarkable except as noted in HPI and below Exam Narrative: She is on room air, reclining in bed. Saturation is 93% on room air. HEENT: pupils are equal, EOMI, symmetrical face; NECK: Trachea is midline CHEST: Equal air entry, symmetric excursion, clear breath sounds; she is reclining in bed, taking medium breaths CV: Regular S1S2 no m/g/r ABD : (+) bowel sounds Extremities : no clubbing, cyanosis, (+) ankle edema; she has scattered ecchymoses left upper extremity PSYCH: normal thought and speech, gait is not tested at this time, however she was up with therapist earlier today Objective Data Vital Signs Vital Signs: Vital Signs - 24 hr 06/12/24 22:00 06/13/24 00:00 06/13/24 04:00 Temperature 36.4 C L Pulse Rate 106 H 94 95 Respiratory Rate 18 Blood Pressure 131/62 Pulse Oximetry 96 Oxygen Delivery Oxygen Flow Rate Fraction of Inspired Oxygen 06/13/24 06:00 06/13/24 08:58 06/13/24 08:58 Temperature 36.3 C L Pulse Rate 95 99 Respiratory Rate 18 Blood Pressure 135/67 Pulse Oximetry 97 93 Oxygen Delivery Nasal Cannula Oxygen Flow Rate 1 Fraction of Inspired Oxygen 06/13/24 12:00 06/13/24 13:31 06/13/24 16:00 Temperature 36.8 C Pulse Rate 99 97 97 Respiratory Rate 18 Blood Pressure 109/61 Pulse Oximetry 96 Oxygen Delivery Oxygen Flow Rate Fraction of Inspired Oxygen 06/13/24 19:38 Temperature Pulse Rate Respiratory Rate Blood Pressure Pulse Oximetry 94 Oxygen Delivery Nasal Cannula Oxygen Flow Rate 1 Fraction of Inspired Oxygen 24 Intake/Output Intake/Output: Intake & Output 06/10/24 06/11/24 06/12/24 06/13/24 23:59 23:59 23:59 23:59 Intake Total 1148 9592 287 7814 Output Total 2940 1200 1001 1600 [facility] [phone] Meds/Results Medications: Active Medications Generic Name Dose Route Start Last Admin Trade Name Freq PRN Reason Stop Dose Admin Acetaminophen 650 mg 06/03/24 18:29 06/13/24 17:45 Acetaminophen 325 Mg Tablet PO 650 mg Q4H PRN Administration Mild Pain (1-3) or Fever Apixaban 5 mg 06/04/24 21:00 06/13/24 08:58 Apixaban 5 Mg Tablet PO 5 mg Q12HR BEVERLY Administration Aspirin 81 mg 06/06/24 17:00 06/13/24 08:58 Aspirin 81 Mg Chewable Tablet PO 81 mg DAILY@0800 B[facility]LY Administration Atorvastatin Calcium 10 mg 06/04/24 09:00 06/13/24 08:59 Atorvastatin 10 Mg Tablet PO 10 mg DAILY B[facility]LY Administration Furosemide 40 mg 06/08/24 09:00 06/13/24 17:41 Furosemide Inj 40 Mg/4 Ml Vial IV PUSH 40 mg BID BEVERLY Administration Lactic Acid 1 applic 06/08/24 21:00 06/13/24 09:00 Lactic Acid 12% Lotion 225 Btl TOPICAL 1 applic Q12HR B[facility]LY Administration Levofloxacin 750 mg 06/09/24 15:00 06/13/24 14:34 Levofloxacin 750 Mg Tablet PO 06/15/24 14:01 750 mg DAILY@1400 [facility] Administration Lidocaine 1 patch 06/11/24 14:00 06/13/24 08:59 Lidocaine 5% Patch TRANSDERM 1 patch DAILY [facility] Administration Loratadine 10 mg 06/04/24 09:00 06/13/24 08:59 Loratadine 10 Mg Tablet PO 10 mg DAILY [facility] Administration Metoprolol Tartrate 50 mg 06/04/24 21:00 06/13/24 08:58 Metoprolol Tartrate 50 Mg Tab PO 50 mg Q12HR B[facility]LY Administration Miconazole Nitrate 1 applic 06/04/24 21:00 06/12/24 22:26 Miconazole Nitrate 2% Cream 30 Gm Tube TOPICAL 1 applic HS [facility] Administration Ondansetron HCl 4 mg 06/03/24 18:29 Ondansetron Inj 4 Mg/2 Ml Vial IV PUSH Q4H PRN Nausea Pantoprazole Sodium 40 mg 06/04/24 09:00 06/13/24 08:59 Pantoprazole 40 Mg Tablet PO 40 mg QAM B[facility]LY Administration Vitamin D 1,000 units 06/07/24 09:00 06/13/24 08:58 Cholecalciferol 1,000 Units Tablet PO 1,000 units DAILY BEVERLY Administration Radiology Results: ITS Impressions Chest CTA 06/03/24 17:13 IMPRESSION: 1. No pulmonary embolism. 2. Bilateral moderate pleural effusion with atelectasis versus pneumonia. 3. Multiple nodules seen bilaterally which measures 5 mm. 6 months follow-up CT scan is advised. 4. Highly suggestive cholelithiasis. 5. Minimal fluid around the liver. Head CT 06/04/24 07:53 IMPRESSION: Cerebral atherosclerosis No acute intracranial finding Brain MRI 06/05/24 15:11 IMPRESSION: 1. Mildly increased T2-weighted signal intensity in the medial temporal lobes bilaterally suspicious for HSV encephalitis. 2. 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 Venous Doppler Study 06/05/24 16:41 IMPRESSION: No deep venous thrombosis within the visualized portions of the bilateral upper extremities, as detailed above. Upper Quadrant Ultrasound 06/05/24 16:44 IMPRESSION: Poor visualization of the gallbladder and pancreas secondary to overlying bowel gas. Limited visualization of the liver. Cross-sectional imaging is suggested if patient is clinically able. Lumbar Puncture Fluoroscopy 06/06/24 13:53 IMPRESSION: 1. Successful fluoro-guided lumbar puncture. Chest X-Ray 06/09/24 16:51 IMPRESSION: Findings consistent with congestive failure demonstrating progression from 06/03/2024 Chest Ultrasound 06/10/24 16:47 IMPRESSION: Bilateral pleural effusions, right greater than left. Bibasilar atelectasis/consolidation. Labs Labs: Laboratory Results - last 24 hr 06/12/24 06/13/24 22:04 05:20 WBC 7.3 RBC 4.03 L Hgb 12.4 Hct 40.7 MCV 101.0 H MCH 30.8 MCHC 30.5 L RDW 14.9 H Plt Count 133 L MPV 12.1 H Immature Gran % (Auto) 0.3 Neut % (Auto) 55.1 Lymph % (Auto) 30.1 [place] % (Auto) 9.5 H Eos % (Auto) 4.3 Baso % (Auto) 0.7 Lymph # (Auto) 2.19 [place] # (Auto) 0.7 H Eos # (Auto) 0.3 Baso # (Auto) 0.1 Abs Immat Gran (auto) 0.02 Absolute Neuts (auto) 4.0 Absolute Nucleated RBC 0.000 Nucleated RBC % 0.0 Sodium 135 L Potassium 3.3 L Chloride 87 L Carbon Dioxide > 40 H Anion Gap BUN 12 Creatinine 1.03 H Estim Creat Clear Calc 46 Estimated GFR 51 L Glucose 94 POC Capillary Glucose 137 H Calcium 9.3 Magnesium 1.7 Total Bilirubin 1.0 AST 40 H ALT 36 H Alkaline Phosphatase 65 Total Protein 6.0 L Albumin 3.1 L
[2024-06-13] MEDS: MICONAZOLE NITRATE 2% CREAM 30 GM TUBE 1 APPLIC TOPICAL (20:55)
[2024-06-14] VITALS (9 sets, daily range): BP systolic 111–138; BP diastolic 54–69; PULSE 82–103; RESP 20; TEMP 36.3; O2SAT 90–98
[2024-06-14] MEDS: LIDOCAINE 5% PATCH 1 PATCH TRANSDERM (09:01)
[2024-06-14] MEDS: LORATADINE 10 MG TABLET PO (09:03)
[2024-06-14] MEDS: PANTOPRAZOLE 40 MG TABLET PO (09:03)
[2024-06-14] MEDS: METOPROLOL TARTRATE 50 MG TAB PO (09:03)
[2024-06-14] MEDS: ASPIRIN 81 MG CHEWABLE TABLET PO (09:03)
[2024-06-14] MEDS: FUROSEMIDE INJ 40 MG/4 ML VIAL IV PUSH (09:03)
[2024-06-14] MEDS: APIXABAN 5 MG TABLET PO (09:04)
[2024-06-14] MEDS: CHOLECALCIFEROL 1,000 UNITS TABLET 1000 UNITS PO (09:04)
[2024-06-14] MEDS: ATORVASTATIN 10 MG TABLET PO (09:04)
[2024-06-14] MEDS: LACTIC ACID 12% LOTION 225 BTL 1 APPLIC TOPICAL (09:04)
--- NOTE | 2024-06-14 10:56 | PCRCNOTE ---
Will arrange O2 at 2 L for nocturnal needs. Home O2 eval complete, patient on room air at rest and with exertion. RN notified, will have home O2 set up at D/C with [facility]. Will also have DME contact Mami, daughter to communicate O2 needs and delivery arrangements
--- NOTE | 2024-06-14 11:07 | P.PNIM_ITS ---
Progress Note: A&P Assessment and Plan (1) Generalized anxiety disorder: Code(s): F41.1 - Generalized anxiety disorder Status: Acute (2) Essential (primary) hypertension: Code(s): I10 - Essential (primary) hypertension Status: Acute (3) Suspected congestive heart failure: Code(s): R09.89 - Other specified symptoms and signs involving the circulatory and respiratory systems Status: Acute (4) Cardiomegaly: Code(s): I51.7 - Cardiomegaly Status: Acute (5) Acute heart failure: Code(s): I50.9 - Heart failure, unspecified Status: Acute (6) Acute exacerbation of congestive heart failure: Code(s): I50.9 - Heart failure, unspecified Status: Acute (7) Atrial fibrillation with rapid ventricular response: Code(s): I48.91 - Unspecified atrial fibrillation Status: Acute (8) Mixed hyperlipidemia: Code(s): E78.2 - Mixed hyperlipidemia Status: Acute Plan (1) Acute respiratory failure with hypoxia: Code(s): J96.01 - Acute respiratory failure with hypoxia Status: Acute Assessment and Plan: Likely due to acute on chronic congestive heart failure associated with atrial fibrillation and rapid ventricular rate Not getting metoprolol or Eliquis due to her mental status change. Heart rate was poorly controlled but better now that she is getting her medications Also with hypercarbia treated with BiPAP. Probably untreated DORETHA ABG yesterday morning was 7.45/56/54 on bipap. Wean to room air as tolerated. Now refusing the bipap. Compliance was encouraged. Continue diuresis Pulmonary consulted regarding hypercapnic respiratory failure are tolerate AVAPS. Continued and O2 needs will be reassessed now on RA Respiratory has resolved (2) Acute alteration in mental status: Code(s): R41.82 - Altered mental status, unspecified Status: Acute Assessment and Plan: This appears to be acute delirium probably related to acute respiratory failure. Consider also due to drug withdrawal as symptoms began at home with shakes and personality change and a feeling of her veins coursing (per phone conversation with daughter on 06/04/2024). Per other provider: On 06/04/24, daughter was in agreement with detox from opioids and benzodiazepines and avoiding these as long-term therapy CT brain showing no acute findings. TSH, B12 and folate normal. Ammonia <9. VitD level low so will replace. UA showing 1+ LE, +Nitrates and 21-50WBC. UCx ordered. 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 Lovenox stopped and LP ordered. Started on broad spectrum abx and anti-viral agents. Neuro consulted LP (06/06) showing normal opening pressure; 6 RBC, no WBC, Protein 67 and glucose 54. Continue current treatment plan. Will taper down antibiotics. Continue ceftriaxone for UTI gram-negative bacilli identified as Enterobacter cloaca. Started on levofloxacin HSV PCR came back negative. stopped acyclovir now pt is alert oriented x3, acute encephalopathy has resolved Continue Levaquin for 2 more days after discharge Now patient is alert oriented x3 (3) Atrial fibrillation with rapid ventricular response: Code(s): I48.91 - Unspecified atrial fibrillation Status: Acute Assessment and Plan: Likely exacerbated by medication non adherence. Metoprolol was on hold while NPO. TSH normal. Echo showing EF 55-60%, RV pressure overload, severely enlarged RV with preserved RV fxn, mod-severe TR and severe pHTN. Metoprolol resumed and HR better. Eliquis was held for LP. Eliquis which he is now resumed now (4) Acute exacerbation of congestive heart failure: Code(s): I50.9 - Heart failure, unspecified Status: Acute Assessment and Plan: Echo as above. Likely dCHF with right sided failure due to medication non adherence and atrial fibrillation with rapid ventricular rate. Low dose Lasix started and she is tolerating this well. KEESHA has improved with Cr at 1.1 now. Still with +fluid balance related to IV abx Continue diuresis but advance dose. US check with bilateral effusion right more than left dose of metolazone 06/11 Patient on furosemide 20 mg daily p.o. at home. Increased furosemide from 20-40 mg daily p.o. and discharged (5) Non-ST elevation CO (NSTEMI): Code(s): I21.4 - Non-ST elevation (NSTEMI) myocardial infarction Status: Acute Assessment and Plan: Trop at 0.68 but flat. EKG showing AFib/RVR (123), low voltage, age- indeterminate anterior CO similar to prior EKG Echo as above. Suspect type 2 demand infarcts secondary to rapid atrial fibrillation ASA added. Continue Lipitor and metoprolol (6) Acute on chronic kidney failure: Code(s): N17.9 - Acute kidney failure, unspecified; N18.9 - Chronic kidney disease, unspecified Status: Acute Assessment and Plan: Baseline Cr 1.2-1.3. Cr 2.4 on admission. KEESHA related to CHF, AFib/RVR, and respiratory failure. Also received contrast with CTA chest so monitor for worsening renal function. Tolerating diuresis. Cr trending down to 1.1 Follow. Monitor UOP, electrolytes and renal fxn (7) Transaminitis: Code(s): R74.01 - Elevation of levels of liver transaminase levels Status: Acute Assessment and Plan: AST/ALT mildly elevated. and has been noted last month. Could be related to CHF. Hepatitis negative. SMITA US was very limited. LFTs better. Okay to continue Lpitor. Follow. (+) DDimer - DDimer is 7. CTA negative for PE. UE and LE negative for DVT. DVT prophylaxis - Eliquis code status - full Subjective Date/time seen: 06/14/24 11:07 Interval history: Patient ambulates with walker, patient denies dyspnea with ambulation and patient also denies chest pain palpitation. Afebrile blood pressure stable no O2 desaturation on room air, Exam 2 Narrative: GENERAL: Pleasant, in no acute distress. Well-nourished. Obesity - EYES: EOMI. Anicteric. - HENT: Moist mucous membranes. - LUNGS: Clear to auscultation bilateral ly, no wheezing, rhonchi, or rales. - CARDIOVASCULAR: Regular rate and rhyth m. No murmur. No JVD. - ABDOMEN: Soft, non-tender and non-dist ended. No palpable masses. - EXTREMITIES: No edema. Peripheral puls es 2+. Non-tender. - NEUROLOGIC: No focal neurological defi cits. CN II-XII grossly intact. - PSYCHIATRIC: Awake, Alert and oriented x 3. Appropriate mood and affect. - SKIN: No rashes or lesions. Warm. - LYMPH: No cervical lymphadenopathy. Objective Data Vital Signs Vital Signs: Vital Signs - 24 hr 06/13/24 12:00 06/13/24 13:31 06/13/24 16:00 Temperature 98.2 F Pulse Rate 99 97 97 Respiratory Rate 18 Blood Pressure 109/61 Pulse Oximetry 96 Oxygen Delivery Oxygen Flow Rate Fraction of Inspired Oxygen 06/13/24 19:38 06/13/24 20:00 06/13/24 20:54 Temperature Pulse Rate 112 H 96 Respiratory Rate Blood Pressure Pulse Oximetry 94 Oxygen Delivery Nasal Cannula Oxygen Flow Rate 1 Fraction of Inspired Oxygen 24 06/13/24 22:00 06/14/24 00:00 06/14/24 04:00 Temperature 97.8 F Pulse Rate 76 90 90 Respiratory Rate 20 Blood Pressure 113/68 Pulse Oximetry 98 Oxygen Delivery Oxygen Flow Rate Fraction of Inspired Oxygen 06/14/24 06:02 06/14/24 09:03 06/14/24 09:06 Temperature 97.3 F L Pulse Rate 94 103 H Respiratory Rate 20 Blood Pressure 111/54 L 138/69 Pulse Oximetry 98 Oxygen Delivery Oxygen Flow Rate Fraction of Inspired Oxygen 06/14/24 10:00 06/14/24 10:15 06/14/24 10:20 Temperature Pulse Rate 86 93 82 Respiratory Rate Blood Pressure Pulse Oximetry 92 90 93 Oxygen Delivery Room Air Room Air Room Air Oxygen Flow Rate Fraction of Inspired Oxygen Intake/Output Intake/Output: Intake & Output 06/11/24 06/12/24 06/13/24 06/14/24 23:59 23:59 23:59 23:59 Intake Total 5393 722 7583 120 Output Total 1200 1001 1600 800 Balance 21 -281 -420 -146 Meds/Results Medications: Active Medications Generic Name Dose Route Start Last Admin Trade Name Jonathanq PRN Reason Stop Dose Admin Acetaminophen 650 mg 06/03/24 18:29 06/13/24 17:45 Acetaminophen 325 Mg Tablet PO 650 mg Q4H PRN Administration Mild Pain (1-3) or Fever Apixaban 5 mg 06/04/24 21:00 06/14/24 09:04 Apixaban 5 Mg Tablet PO 5 mg Q12HR BEVERLY Administration Aspirin 81 mg 06/06/24 17:00 06/14/24 09:03 Aspirin 81 Mg Chewable Tablet PO 81 mg DAILY@0800 BEVERLY Administration Atorvastatin Calcium 10 mg 06/04/24 09:00 06/14/24 09:04 Atorvastatin 10 Mg Tablet PO 10 mg DAILY BEVERLY Administration Furosemide 40 mg 06/08/24 09:00 06/14/24 09:03 Furosemide Inj 40 Mg/4 Ml Vial IV PUSH 40 mg BID BEVERLY Administration Lactic Acid 1 applic 06/08/24 21:00 06/14/24 09:04 Lactic Acid 12% Lotion 225 Btl TOPICAL 1 applic Q12HR BEVERLY Administration Levofloxacin 750 mg 06/09/24 15:00 06/13/24 14:34 Levofloxacin 750 Mg Tablet PO 06/15/24 14:01 750 mg DAILY@1400 BEVERLY Administration Lidocaine 1 patch 06/11/24 14:00 06/14/24 09:01 Lidocaine 5% Patch TRANSDERM 1 patch DAILY BEVERLY Administration Loratadine 10 mg 06/04/24 09:00 06/14/24 09:03 Loratadine 10 Mg Tablet PO 10 mg DAILY BEVERLY Administration Metoprolol Tartrate 50 mg 06/04/24 21:00 06/14/24 09:03 Metoprolol Tartrate 50 Mg Tab PO 50 mg Q12HR BEVERLY Administration Miconazole Nitrate 1 applic 06/04/24 21:00 06/13/24 20:55 Miconazole Nitrate 2% Cream 30 Gm Tube TOPICAL 1 applic HS BEVERLY Administration Ondansetron HCl 4 mg 06/03/24 18:29 Ondansetron Inj 4 Mg/2 Ml Vial IV PUSH Q4H PRN Nausea Pantoprazole Sodium 40 mg 06/04/24 09:00 06/14/24 09:03 Pantoprazole 40 Mg Tablet PO 40 mg QAM BEVERLY Administration Vitamin D 1,000 units 06/07/24 09:00 06/14/24 09:04 Cholecalciferol 1,000 Units Tablet PO 1,000 units DAILY BEVERLY Administration Radiology Results: ITS Impressions Chest CTA 06/03/24 17:13 IMPRESSION: 1. No pulmonary embolism. 2. Bilateral moderate pleural effusion with atelectasis versus pneumonia. 3. Multiple nodules seen bilaterally which measures 5 mm. 6 months follow-up CT scan is advised. 4. Highly suggestive cholelithiasis. 5. Minimal fluid around the liver. Head CT 06/04/24 07:53 IMPRESSION: Cerebral atherosclerosis No acute intracranial finding Brain MRI 06/05/24 15:11 IMPRESSION: 1. Mildly increased T2-weighted signal intensity in the medial temporal lobes bilaterally suspicious for HSV encephalitis. 2. 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 Venous Doppler Study 06/05/24 16:41 IMPRESSION: No deep venous thrombosis within the visualized portions of the bilateral upper extremities, as detailed above. Upper Quadrant Ultrasound 06/05/24 16:44 IMPRESSION: Poor visualization of the gallbladder and pancreas secondary to overlying bowel gas. Limited visualization of the liver. Cross-sectional imaging is suggested if patient is clinically able. Lumbar Puncture Fluoroscopy 06/06/24 13:53 IMPRESSION: 1. Successful fluoro-guided lumbar puncture. Chest X-Ray 06/09/24 16:51 IMPRESSION: Findings consistent with congestive failure demonstrating progression from 06/03/2024 Chest Ultrasound 06/10/24 16:47 IMPRESSION: Bilateral pleural effusions, right greater than left. Bibasilar atelectasis/consolidation.
--- NOTE | 2024-06-14 11:11 | P.DS_ITS ---
DS: Admitting Diagnosis Discharge Date 06/14/24 Admitting Diagnosis (1) Generalized anxiety disorder: Code(s): F41.1 - Generalized anxiety disorder Status: Acute (2) Essential (primary) hypertension: Code(s): I10 - Essential (primary) hypertension Status: Acute (3) Suspected congestive heart failure: Code(s): R09.89 - Other specified symptoms and signs involving the circulatory and respiratory systems Status: Acute (4) Cardiomegaly: Code(s): I51.7 - Cardiomegaly Status: Acute (5) Acute heart failure: Code(s): I50.9 - Heart failure, unspecified Status: Acute (6) Acute exacerbation of congestive heart failure: Code(s): I50.9 - Heart failure, unspecified Status: Acute (7) Atrial fibrillation with rapid ventricular response: Code(s): I48.91 - Unspecified atrial fibrillation Status: Acute (8) Mixed hyperlipidemia: Code(s): E78.2 - Mixed hyperlipidemia Status: Acute DS: Discharge Diagnosis Discharge Diagnosis (1) Generalized anxiety disorder: Code(s): F41.1 - Generalized anxiety disorder Status: Acute (2) Essential (primary) hypertension: Code(s): I10 - Essential (primary) hypertension Status: Acute (3) Suspected congestive heart failure: Code(s): R09.89 - Other specified symptoms and signs involving the circulatory and respiratory systems Status: Acute (4) Cardiomegaly: Code(s): I51.7 - Cardiomegaly Status: Acute (5) Acute heart failure: Code(s): I50.9 - Heart failure, unspecified Status: Acute (6) Acute exacerbation of congestive heart failure: Code(s): I50.9 - Heart failure, unspecified Status: Acute (7) Atrial fibrillation with rapid ventricular response: Code(s): I48.91 - Unspecified atrial fibrillation Status: Acute (8) Mixed hyperlipidemia: Code(s): E78.2 - Mixed hyperlipidemia Status: Acute DS: Summary Hospital Course Hospital Course: This is an 84-year-old female with heart failure with preserved ejection fraction, pulmonary embolism, paroxysmal atrial fibrillation, diastolic dysfunction, morbid obesity, chronic kidney disease, hypertension, hyperlipidemia, gastroesophageal reflux disease, overactive bladder, and anxiety who presented to the emergency department via private vehicle for evaluation of shortness of breath. The patient provides the following history. She was admitted to the hospital in early May with hypoxia, pneumonia, pulmonary embolism, and new onset atrial fibrillation. She was discharged to rehab thereafter and she has been home for a couple of weeks. She has been doing okay but she never bounced back to baseline and continues to have decreased exercise tolerance. She is had problems refilling her medications since discharge from rehab and was told by her insurance company that they would not refill her tramadol or clonazepam for another couple of weeks and she reports having incre asing pain and anxiety. Today she had a follow-up appointment with her primary care provider and she was referred to the emergency department after she was found to be hypoxic and in rapid atrial fibrillation. With further questioning she endorses chronic dyspnea on minimal exertion admits to being quite sedentary. She has occasional discomfort in her lower chest like a ?pulling or aching? which seems to be related to shortness of breath. She also endorses orthopnea and significant lower extremity edema. She denies fever, chills, sweats, sinus congestion, sore throat, productive cough, palpitations, pleuritic pain, nausea, vomiting, diarrhea, dysuria, and calf pain. In the ED: She was in rapid atrial fibrillation with rates in the 120s and an SpO2 was in the low 70s on room air on arrival. Blood pressures have been stable. ABG showed a pH of 7.327, pCO2 59.2, PO2 137.0, HC03 30.3, A-a gradient 516.8. Chest x-ray showed worsened airspace opacities in the mid and lower lung zones consistent with atelectasis versus pneumonia and small pleural effusions with cardiomegaly. She was given furosemide 40 mg IV and aspirin 324 mg and she is being admitted in this setting for further treatment and Cardiology consultation. The following med issues have been addressed during hospitalization Acute respiratory failure with hypoxia: Code(s): J96.01 - Acute respiratory failure with hypoxia Status: Acute Assessment and Plan: Likely due to acute on chronic congestive heart failure associated with atrial fibrillation and rapid ventricular rate Not getting metoprolol or Eliquis due to her mental status change. Heart rate was poorly controlled but better now that she is getting her medications Also with hypercarbia treated with BiPAP. Probably untreated DORETHA ABG yesterday morning was 7.45/56/54 on bipap. Wean to room air as tolerated. Now refusing the bipap. Compliance was encouraged. Continue diuresis Pulmonary consulted regarding hypercapnic respiratory failure are tolerate AVAPS. Continued and O2 needs will be reassessed now on RA Respiratory has resolved Acute alteration in mental status: Code(s): R41.82 - Altered mental status, unspecified Status: Acute Assessment and Plan: This appears to be acute delirium probably related to acute respiratory failure. Consider also due to drug withdrawal as symptoms began at home with shakes and personality change and a feeling of her veins coursing (per phone conversation with daughter on 06/04/2024). Per other provider: On 06/04/24, daughter was in agreement with detox from opioids and benzodiazepines and avoiding these as long-term therapy CT brain showing no acute findings. TSH, B12 and folate normal. Ammonia <9. VitD level low so will replace. UA showing 1+ LE, +Nitrates and 21-50WBC. UCx ordered. 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 Lovenox stopped and LP ordered. Started on broad spectrum abx and anti-viral agents. Neuro consulted LP (06/06) showing normal opening pressure; 6 RBC, no WBC, Protein 67 and glucose 54. Continue current treatment plan. Will taper down antibiotics. Continue ceftriaxone for UTI gram-negative bacilli identified as Enterobacter cloaca. Started on levofloxacin HSV PCR came back negative. stopped acyclovir now pt is alert oriented x3, acute encephalopathy has resolved Continue Levaquin for 2 more days after discharge Now patient is alert oriented x3 Atrial fibrillation with rapid ventricular response: Code(s): I48.91 - Unspecified atrial fibrillation Status: Acute Assessment and Plan: Likely exacerbated by medication non adherence. Metoprolol was on hold while NPO. TSH normal. Echo showing EF 55-60%, RV pressure overload, severely enlarged RV with preserved RV fxn, mod-severe TR and severe pHTN. Metoprolol resumed and HR better. Eliquis was held for LP. Eliquis which he is now resumed now Acute exacerbation of congestive heart failure: Code(s): I50.9 - Heart failure, unspecified Status: Acute Assessment and Plan: Echo as above. Likely dCHF with right sided failure due to medication non adherence and atrial fibrillation with rapid ventricular rate. Low dose Lasix started and she is tolerating this well. KEESHA has improved with Cr at 1.1 now. Still with +fluid balance related to IV abx Continue diuresis but advance dose. US check with bilateral effusion right more than left dose of metolazone 06/11 Patient on furosemide 20 mg daily p.o. at home. Increased furosemide from 20-40 mg daily p.o. and discharged Non-ST elevation IA (NSTEMI): Code(s): I21.4 - Non-ST elevation (NSTEMI) myocardial infarction Status: Acute Assessment and Plan: Trop at 0.68 but flat. EKG showing AFib/RVR (123), low voltage, age- indeterminate anterior IA similar to prior EKG Echo as above. Suspect type 2 demand infarcts secondary to rapid atrial fibrillation ASA added. Continue Lipitor and metoprolol Acute on chronic kidney failure: Code(s): N17.9 - Acute kidney failure, unspecified; N18.9 - Chronic kidney disease, unspecified Status: Acute Assessment and Plan: Baseline Cr 1.2-1.3. Cr 2.4 on admission. KEESHA related to CHF, AFib/RVR, and respiratory failure. Also received contrast with CTA chest so monitor for worsening renal function. Tolerating diuresis. Cr trending down to 1.1 Follow. Monitor UOP, electrolytes and renal fxn Transaminitis: Code(s): R74.01 - Elevation of levels of liver transaminase levels Status: Acute Assessment and Plan: AST/ALT mildly elevated. and has been noted last month. Could be related to CHF. Hepatitis negative. SMITA US was very limited. LFTs better. Okay to continue Lpitor. Follow. DDimer - DDimer is 7. CTA negative for PE. UE and LE negative for DVT. DVT prophylaxis - Eliquis code status - hearing screen coordinator Spent with Patient Time attestation: Total time spent providing and/or coordinating discharge services: Exam Narrative: GENERAL: Pleasant, in no acute distress. Well-nourished. Obesity - EYES: EOMI. Anicteric. - HENT: Moist mucous membranes. - LUNGS: Clear to auscultation bilateral ly, no wheezing, rhonchi, or rales. - CARDIOVASCULAR: Regular rate and rhyth m. No murmur. No JVD. - ABDOMEN: Soft, non-tender and non-dist ended. No palpable masses. - EXTREMITIES: No edema. Peripheral puls es 2+. Non-tender. - NEUROLOGIC: No focal neurological defi cits. CN II-XII grossly intact. - PSYCHIATRIC: Awake, Alert and oriented x 3. Appropriate mood and affect. - SKIN: No rashes or lesions. Warm. - LYMPH: No cervical lymphadenopathy. DS: Data Data Completed and Pending Completed studies during hospitalization: Pending at discharge 06/05/24 15:47 Cytology [PTH] Routine Discharge Plan Discharge Attending physician on discharge: Marlen Lopez Consulting providers: Goyo Cornelius; Min Ceballos; Jace Mary Discharging Clinician: Marlen Lopez Anticipated Discharge Date/Time: 06/14/24 11:16 Patient Disposition: Home Health Service Activity: as tolerated Diet: as tolerated and heart healthy Discharge Instructions: Per Care Coordination:Pt to discharge with [facility] ([phone]) for PT/OT and residential services. PLease fax discharge instructions and medication sheets to . Patient Instructions: Antibiotic Form, Heart Failure (GEN) Patient Language: British Stand Alone Forms: General Discharge Information Follow-up/Referrals: Ney Montalvo MD [Primary Care Provider] - (Patient needs to see PCP in 1 week) Discharge Medications: New levofloxacin 750 mg tablet 750 mg PO DAILY Qty: 2 0RF Continued loratadine 10 mg capsule 10 mg PO DAILY Qty: 100 1RF omeprazole 40 mg capsule,delayed release(DR/EC) 40 mg PO DAILY Rx Instructions: TAKE 1 CAPSULE BY MOUTH DAILY Eliquis 5 mg Tablet 5 mg PO Q12HR Qty: 30 0RF Rx Instructions: Continue apixaban 10 mg b.i.d. until 12. After that take apixaban 5 mg b.i.d. metoprolol tartrate 50 mg Tablet 50 mg PO Q12HR Qty: 30 0RF doxycycline hyclate 100 mg Tablet 100 mg PO Q12HR Qty: 1 0RF clonazepam 0.5 mg tablet 0.5 mg PO DAILY PRN (Reason: panic attack(s)) Qty: 10 0RF tramadol 50 mg tablet 50 mg PO DAILY Qty: 10 0RF losartan 25 mg tablet 25 mg PO DAILY Qty: 90 0RF atorvastatin 10 mg tablet 10 mg PO DAILY Qty: 90 0RF Rx Instructions: TAKE 1 TABLET BY MOUTH DAILY Changed furosemide [Lasix] 20 mg tablet 40 mg PO DAILY Qty: 30 0RF Rx Instructions: Take Lasix as needed if feeling congested, leg edema, weight gain Date of admission: 06/03/24 18:29 Primary Care Provider: Ney Montalvo Admitting Provider: Brennan Osborne Attending physician on admission: Brennan Osborne Condition: Serious
[2024-06-14 12:22] LABS: Hematocrit 42.3 % (37.0-47.0); Immature Platelet Fraction Pct 9.9 % (0.9-11.2); Mean Corpuscular HGB Conc 30.7 g/dl (32-36); Mean Corpuscular Hemoglobin 30.7 pg (26-34); Mean Platelet Volume 11.7 fl (7.4-10.4); Platelet Count Result 122 k/mm3 (150-375); Red Blood Count 4.23 M/mm3 (4.2-5.4); Red Cell Distribution Width 15.1 % (11.5-14.5); White Blood Count 7.7 K/mm3 (4.5-10.0)
--- NOTE | 2024-06-14 12:34 | PC.NURSE ---
RN called mobile health vehicle operator Dr. Abad via telephone to see patient before discharge.
[2024-06-14 13:33] LABS: Blood Urea Nitrogen 12 mg/dL (7-17); Calcium 9.7 mg/dL (8.4-10.2); Carbon Dioxide > 40 mmol/L (22-30); Chloride 84 mmol/L (98-107); Estimated CRCL calculation 40 ml/min; Estimated Glomerular Filt Rate 45; Glucose 141 mg/dL (65-110); Potassium 3.8 mmol/L (3.4-5.0); Sodium 134 mmol/L (137-145)
[2024-06-14 23:58] LABS: VDRL Quantitative CSF NON-REACTIVE
--- NOTE | 2024-06-15 18:31 | PC.NURSE ---
Pt caregiver daughter called and inquired whether pt needed oxygen. After checking the chart it was found that patient needed 2L 02 at night. A call was made to respiratory who confirmed that all paperwork was sent to the oxygen company and that they should be contacting the daughter for delivery. Phone number was given to her to call the company should she not hear from them.
[2024-06-18 20:59] LABS: Lyme AB IgG, Immunoblot NO BANDS DETECTED; Lyme AB IgM, Immunoblot NO BANDS DETECTED
== END 2024-06-14 13:43 | disposition home health service (06) | DRG 291 ==
LOC: ANHED 14:44 → ANHIMU 19:16 → ANH3MED 06-08 22:54
PROVIDERS: Internal Medicine; Internal Medicine Pulmonary Disease; Physician Assistant; Admitting Provider Internal Medicine; Emergency Provider Student in an Organized Health Care Education/Training Program; PCP Family Medicine; Visit Provider Hospitalist
DX: I13.0 Hypertensive heart and chronic kidney disease with heart failure and stage 1 through stage 4 chronic kidney disease, or unspecified chronic kidney disease (principal); I50.33 Acute on chronic diastolic (congestive) heart failure; J96.01 Acute respiratory failure with hypoxia; F11.23 Opioid dependence with withdrawal; F15.23 Other stimulant dependence with withdrawal; N17.9 Acute kidney failure, unspecified; E66.2 Morbid (severe) obesity with alveolar hypoventilation; I24.89 Other forms of acute ischemic heart disease; Z68.42 Body mass index [BMI] 45.0-49.9, adult; J96.12 Chronic respiratory failure with hypercapnia; N18.31 Chronic kidney disease, stage 3a; I48.0 Paroxysmal atrial fibrillation; E78.5 Hyperlipidemia, unspecified; I36.1 Nonrheumatic tricuspid (valve) insufficiency; F41.1 Generalized anxiety disorder; I27.20 Pulmonary hypertension, unspecified; K21.9 Gastro-esophageal reflux disease without esophagitis; Z87.891 Personal history of nicotine dependence; Z86.711 Personal history of pulmonary embolism; Z79.899 Other long term (current) drug therapy; Z79.01 Long term (current) use of anticoagulants
CPT/HCPCS: 36415; 36600; 62328; 70450; 70551; 71045; 71275; 76604; 76705; 80048; 80053; 80069; 80202; 81001; 82140; 82306; 82375; 82550; 82607; 82746; 82805; 82945; 82948; 83050; 83605; 83735; 83880; 84100; 84157; 84443; 84484; 85018; 85025; 85027; 85055; 85380; 85610; 85730; 86403; 86592; 86617; 86704; 86706; 86788; 86803; 87015; 87040; 87070; 87086; 87116; 87186; 87205; 87206; 87340; 87529; 87637; 87798; 88108; 89051; 93005; 93308; 93970; 94002; 94003; 94618; 94640; 94762; 96374; 97110; 97165; 97530; 97535; 99285; A9270; C8924; J0133; J0290; J0696; J1650; J1940; J3370; J3475; J7060; Q9957; Q9967

== ENCOUNTER 2024-07-24 20:21 | Inpatient (IN) | payer OTHER, SELFPAY ==
[2024-07-24] VITALS (31 sets, daily range): BP systolic 80–154; BP diastolic 58–132; PULSE 104–124; RESP 15–30; TEMP 36.2; O2SAT 90–97
--- NOTE | ~2024-07-24 | XR_ITS ---
Portable chest x-ray Comparison: 06/09/2024 Clinical History: Dyspnea Findings: There are small bilateral pleural effusions with moderate bibasilar pulmonary edema/atelec tasis. Cardiomediastinal silhouette is stable. Bones and soft tissues are unremarkable. Impression: Small bilateral pleural effusions with moderate bibasilar pulmonary edema/atelectasis. Stable cardiomegaly. Reviewed, dictated and finalized at location . 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 Stable cardiomegaly.
--- NOTE | ~2024-07-24 | US_ITS ---
EXAMINATION: US venous doppler [facility] DATE: 07/25/2024 17:02 INDICATION: Blood clot. TECHNIQUE: Grayscale ultrasound images without and with compression and Doppler ultrasound images of the bilateral lower extremity veins were obtained. COMPARISON: None. FINDINGS: The visualized portions of right profunda (deep) femoral vein, femoral vein, and popliteal vein are p atent. There is thrombus in right common femoral vein, posterior tibial and peroneal veins, and great er saphenous vein. The visualized portions of left common femoral vein, profunda femoral vein, femoral vein, popliteal v ein, and greater saphenous vein outflow are patent. There is thrombus in left posterior tibial and pe roneal veins. IMPRESSION: 1. Bilateral deep vein thrombosis. Reviewed, dictated and finalized at location A. ERCIAL DIVER
--- NOTE | ~2024-07-24 | US_ITS ---
EXAM: RENAL ULTRASOUND HISTORY: KEESHA COMPARISON: Reference is made to a CTA of the chest abdomen and pelvis dated 04/30/2024 FINDINGS: RIGHT KIDNEY: 11.4 x 4.7 x 3.3 cm. The parenchyma of the right kidney is unremarkable in echogenicity, but decreased in thickness. No hydronephrosis or bulky renal calculi. A single rounded avascular anechoic focus is present within the upper pole of the right kidney measur ing 13 mm in greatest dimension. LEFT KIDNEY: 10.4 x 5.1 x 5.2 cm No hydronephrosis or renal calculi. The parenchyma of the left kidney is unremarkable in echogenicity, but decreased in thickness. A single rounded avascular anechoic focus is present within the upper pole of the left kidney measuri ng 30 mm in greatest dimension. BLADDER: Decompressed IMPRESSION: No hydronephrosis or renal calculi. Cortical thinning detected bilaterally. Bilateral simple cysts. Reviewed, dictated and finalized at location A. RVISOR CHASSIS ASSEMBLY
--- NOTE | ~2024-07-24 | XR_ITS ---
Portable chest x-ray Comparison: 07/25/2024 Clinical History: Respiratory failure Findings: Endotracheal tube and NG tube are in satisfactory positions. Small bilateral pleural effus ions are present with probable mild pulmonary edema pattern. Cardiomediastinal silhouette is stable. Bones and soft tissues are unremarkable. Impression: Small bilateral pleural effusions with mild pulmonary edema pattern. Support tubes, as above. Reviewed, dictated and finalized at [facility]. SALES SERVICE PROFESSIONAL Impression: Small bilateral pleural effusions with mild pulmonary edema pattern. Support tubes, as above.
--- NOTE | ~2024-07-24 | XR_ITS ---
EXAMINATION: XR chest ET placement Exam Date/Time: 07/25/2024 20:50 TRAVELING SALES EXECUTIVE HISTORY: intubation Comparison: Same date at 12:47 AM. FINDINGS/IMPRESSION: New endotracheal tube, terminating 3.3 cm above the ivana. New, subdiaphragmati c NG tube. Slightly increased mild interstitial pulmonary edema. Stable left medial basal segmental a telectasis/consolidation. Stable small bilateral pleural effusions. Reviewed, dictated and finalized at location K. ELING SALES EXECUTIVE
--- NOTE | ~2024-07-24 | CT_ITS ---
EXAMINATION: CT brain wo con DATE: 07/25/2024 22:50 INDICATION: sudden garbled speech . TECHNIQUE: Computed tomography (CT) of the head was performed without intravenous contrast. The mA wa s adjusted according to patient size. Iterative reconstruction technique was employed. The dose-lengt h product was 681.00 mGy-cm. COMPARISON: CT and MRI brain 06/04/2024. FINDINGS: No acute intracranial hemorrhage or extra-axial fluid collection. No hydrocephalus, mass, or herniation. No acute ischemic infarct. Unremarkable dural venous sinus attenuation. No acute osseous abnormality. Hyperostosis. Mild ethmoid mucosal thickening, right mastoid fluid, small right sphenoid polyp, the remaining aerat ed spaces are clear. Mild atrophy and chronic white matter change. Atherosclerotic intracranial calcification. Bilateral l ens replacements. IMPRESSION: No acute intracranial process. Reviewed, dictated and finalized at location K. TERIA FOOD SERVER
--- NOTE | ~2024-07-24 | US_ITS ---
US abdomen limited INDICATION: Elevated liver function tests PROCEDURE: Realtime right upper abdominal ultrasound. COMPARISON: No prior studies for comparison. FINDINGS: The pancreas is normal without focal mass or pancreatic ductal dilation. Liver echotexture is normal without focal mass or intrahepatic biliary dilatation. There is normal directional flow i n the portal vein. Gallbladder is surgically absent. Common bile duct measures 3.6 mm. IMPRESSION: 1: Unremarkable limited abdominal ultrasound. Reviewed, dictated and finalized at location A. ANICAL REPAIR WORKER
--- NOTE | 2024-07-24 20:34 | ECG_ITS ---
Test Date: 2024-07-24 21:34:58 Measurements Intervals [place] Rate: 112 P: 0 OK: 0 QRS: -68 QRSD: 102 T: 39 QT: 309 QTc: 423 Interpretive Statements ATRIAL FIBRILLATION WITH RAPID VENTRICULAR RESPONSE LEFT AXIS DEVIATION LOW QRS VOLTAGE - DIFFUSE LEADS ANTEROSEPTAL INFARCT, AGE INDETERMINATE BASELINE ARTIFACT- I, II, III, AVR, AVL, AVF, V2 ABNORMAL ECG Compared to ECG 06/03/2024 18:38:07 NO SIGNIFICANT CHANGE Electronically Signed On 07-25-2024 06:44:30 [employer]ODUCTION CONTROL EXP[employer] by Ryland Mckeon D.O.
[2024-07-24 21:42] LABS: Basophils Percent Auto 0.2 % (0.2-1.2); Eosinophils Absolute Auto 0.1 K/mm3 (0-0.3); Eosinophils Percent Auto 0.7 % (0-4.4); Hematocrit 46.6 % (37.0-47.0); Hemoglobin 14.5 g/dL (12.0-15.0); Immature Granulocyte Absolute 0.03 K/mm3 (0.00-0.031); Immature Granulocyte Percent A 0.3 % (0-0.5); Lymphocytes Percent Auto 15.1 % (18.3-44.2); Mean Corpuscular HGB Conc 31.1 g/dl (32-36); Mean Corpuscular Hemoglobin 30.4 pg (26-34); Mean Corpuscular Volume 97.7 fl (80-100); Mean Platelet Volume 10.8 fl (7.4-10.4); Monocytes Absolute Auto 0.8 K/mm3 (0.1-0.6); Monocytes Percent Auto 9.6 % (2.6-8.5); Neutrophils Absolute Auto 6.4 K/mm3 (1.3-6.7); Neutrophils Percent Auto 74.1 % (45.5-73.1); Platelet Count Result 203 k/mm3 (150-375); Red Blood Count 4.77 M/mm3 (4.2-5.4); Red Cell Distribution Width 16.8 % (11.5-14.5); White Blood Count 8.6 K/mm3 (4.5-10.0)
[2024-07-24 21:53] LABS: Alanine Aminotransferase 234 U/L (6-35); Albumin Level 3.6 g/dL (3.5-5.1); Alkaline Phosphatase 98 U/L (38-126); Anion Gap 3 mmol/L (4-12); Aspartate Amino Transferase 434 U/L (14-36); Bilirubin,Total 0.8 mg/dL (0.2-1.3); Blood Urea Nitrogen 42 mg/dL (7-17); Calcium 10.4 mg/dL (8.4-10.2); Carbon Dioxide 35 mmol/L (22-30); Chloride 90 mmol/L (98-107); Estimated CRCL calculation 17 ml/min; Estimated Glomerular Filt Rate 15; Glucose 90 mg/dL (65-110); Potassium 5.4 mmol/L (3.4-5.0); Sodium 128 mmol/L (137-145)
--- OUTSIDE RECORDS SUMMARY | 2024-07-24 22:54 | XMS_ITS | Encounter Summary ---
Author Organization [facility] Address [address] [place] [id number] Care Team Providers Care Manager Telemetry Name Role Phone Unavailable Primary Care Provider Unavailabl e Encounter Details Date Type Department Care Team (Latest Contact Info) Description 04/06/2018 Abstract [facility] , Generic Conversion, Social History Tobacco Use Types Packs/Day Years Used Date Smoking Tobacco: Never Assessed Comments Unknown Sex and Gender Information Value Date Recorded Sex Assigned at Not on file Legal Sex Female 5:47 PM CDT Gender Identity Not on file Sexual Orientation Not on file documented as of this encounter Plan of Treatment Not on file documented as of this encounter Visit Diagnoses Not on filedocumented in this encounter
--- OUTSIDE RECORDS SUMMARY | 2024-07-24 22:54 | XMS_ITS | Clinical Summary ---
Author Organization [facility] Address [address] [place] [address] Care Team Providers Care Fan Mail Clerk Name Role Phone Unavailable Primary Care Provider Unavailabl e Social History Tobacco Use Types Packs/Day Years Used Date Smoking Tobacco: Never Assessed Comments Unknown Sex and Gender Information Value Date Recorded Sex Assigned at Not on file Legal Sex Female 5:47 PM CDT Gender Identity Not on file Sexual Orientation Not on file Last Filed Vital Signs Vital Sign Reading Time Taken Comments Blood Pressure 150/85 09/22/2012 1:50 PM CDT Pulse 94 09/22/2012 1:50 PM CDT Temperature - - Respiratory Rate - - Oxygen Saturation - - Inhaled Oxygen Concentration - - Weight 97.5 kg (215 lb) 09/22/2012 1:50 PM CDT Height 167.6 cm (5' 6 ) 09/22/2012 1:50 PM CDT Body Mass Index 34.7 09/22/2012 1:50 PM CDT Plan of Treatment Health Maintenance Due Date Last Done Comments DTaP, Tdap and Td Vaccines ( 1 - Tdap) 1959 Zoster Vaccines (1 of 2) 1990 Dexa Scan (General) 2005 Pneumococcal Vaccine: 65+ Ye ars (1 of 1 - PCV) 2005 RSV Immunization or 60+ Years (1 - 1-dose 75+ series) 2015 COVID-19 Vaccine ( - 2023-2 5 season) 2024 Influenza Adult (#1) 2024 Meningococcal B Vaccine Aged Out No l onger eligible based on patient's age to complete this topic Meningococcal Vaccine Aged Out No breanna fatuma eligible based on patient's age to complete this topic RSV Immunizations Under 20 Months Aged Out No longer eligible based on patient's age to complete this topic
--- OUTSIDE RECORDS SUMMARY | 2024-07-24 22:54 | XMS_ITS | CONTINUITY OF CARE DOCUMENT ---
Author Name shamika wick Address Unknown Organization [facility] Address [id number] [place] [address] [address] [place] [address] Phone [phone] Care Team Providers Care Draw Bench Operator Helper Name Role Phone Henry Cedillo MD Unavailable [phone] Henry Cedillo MD Unavailable [phone] INSURANCE PROVIDERS Payer name Policy type / Coverage type Silvis red green party ID [facility] HMO Other [id number]
--- OUTSIDE RECORDS SUMMARY | 2024-07-24 22:54 | XMS_ITS | Clinical Summary ---
Author Organization [facility] Address [address] [place] [address] Care Team Providers Care Information Director Name Role Phone Ney Montalvo MD Primary Care Provider Allergies No known active allergies Medications atorvastatin (LIPITOR) 10 mg tablet Take 1 tablet (10 mg total) by mouth daily 4 Active clonazePAM (KlonoPIN) 0.5 mg tablet 0 4 Active omeprazole (PriLOSEC) 40 mg capsule Take 1 capsule (40 mg total) by mouth daily 4 Active traMADoL (ULTRAM) 50 mg tablet Take 1 tablet (50 mg total) by mouth every 6 (six) hours as needed 0 4 Active loratadine (CLARITIN) 10 mg tablet Take 1 tablet (10 mg total) by mouth as needed 4 Active albuterol HFA (PROVENTIL HFA,VENTOLIN HFA,PROAIR HFA) 90 mcg/actuation inhaler Inhale 1 puff every 4 (four) hours as needed 4 Active acetaminophen (TYLENOL) 500 mg tablet Take 1 tablet (500 mg total) by mouth every 6 (six) hours as needed for pain Active furosemide (LASIX) 20 mg tablet Take 1 tablet (20 mg total) by mouth daily 5 Active potassium chloride ER 10 mEq CR tablet Take 1 tablet/caps ule (10 mEq total) by mouth 2 (two) times a day 5 Active metoprolol XL (TOPROL-XL) 50 mg extended release tabletIndications :Persistent atrial fibrillation (HCC) Take 1 tablet (50 mg total) by mouth daily 90 tablet 3 5 07/15/19 26 Active apixaban (ELIQUIS) 5 mg tablet Take 1 tablet (5 mg total) by mouth 2 (two) times a day Active losartan (COZAAR) 25 mg tablet Take 1 tablet (25 mg total) by mouth daily 4 07/15/19 Discontinu ed(Alterna te therapy) apixaban (ELIQUIS) 5 mg tablet Take 1 tablet (5 mg total) by mouth 2 (two) times a day 07/15/19 Discontinu ed(Alterna te therapy) metoprolol tartrate (LOPRESSOR) 25 mg immediate release tablet Take 0.5 tablets (12.5 mg total) by mouth 2 (two) times a day 07/15/19 Discontinu ed(Alterna te therapy) Xarelto 15 mg tablet Take 1 tablet (15 mg total) by mouth daily with dinner 5 07/15/19 Discontinu ed(Alterna te therapy) warfarin (COUMADIN) 2 mg tabletIndications :Persistent atrial fibrillation (HCC) Take as directed; begin by taking 1 tablet daily. We may adjust your dose after the first blood test. 90 tablet 3 5 07/19/19 Discontinu ed(Alterna te therapy) Active Problems No known active problems Encounters Date Type Department Care Team Description 07/15/2024 1:00 PM FOOT DOCTOR Office Visit [facility] [address] [place] [phone] Vandana Williamson NP Persistent atrial fibrillation (HCC) (Primary Dx); Encounter for anticoagulation discussion and counseling; Right-sided heart failure, unspecified HF chronicity (HCC); Pulmonary hypertension (HCC); Hospital discharge follow-up 07/15/2024 Telephone [facility] [address] [place] [address] [place] [phone] Vandana Williamson NP Vomiting; Medication Reaction 05/19/2024 10:00 AM FOOT DOCTOR Office Visit [facility] [address] [place] [phone] Vandana Williamson NP New onset atrial fibrillation (CMS/HCC) (HCC) (Primary Dx); History of pulmonary embolism; Encounter for anticoagulation discussion and counseling; Hospital discharge follow-up; Essential hypertension 05/05/2024 Orders Only [facility] [address] [place] [phone] Trisha Banuelos NP 05/02/2024 Orders Only [facility] [address] [place] [phone] Tye Matt MD from Last 3 Months Social History Tobacco Use Types Packs/Day Years Used Date Smoking Tobacco: Former Cigarettes Tobacco Cessation:Counseling Given: Not Answered Comments Unknown Sex and Gender Information Value Date Recorded Sex Assigned at Not on file Legal Sex Female 9:35 AM CDT Gender Identity Not on file Sexual Orientation Not on file Obstetrics History Last Filed Vital Signs Vital Sign Reading Time Taken Comments Blood Pressure 92/64 07/15/2024 1:06 PM FOOT DOCTOR Pulse 128 07/15/2024 1:06 PM FOOT DOCTOR Temperature - - Respiratory Rate - - Oxygen Saturation 83% 07/15/2024 1:06 PM FOOT DOCTOR Inhaled Oxygen Concentration - - Weight 114.8 kg (253 lb) 07/15/2024 1:06 PM FOOT DOCTOR Height 157.5 cm (5' 2 ) 07/15/2024 1:06 PM FOOT DOCTOR Body Mass Index 46.27 07/15/2024 1:06 PM FOOT DOCTOR Plan of Treatment Health Maintenance Due Date Last Done Comments Depression Screening 1940 Fall Risk Assessment 1940 Osteoporosis Screening-Bone Density Scan 1940 DTaP/Tdap/Td Vaccine (1 - Tdap) 1951 Hepatitis B Screening 1958 Pneumococcal vaccine 65+ (1 of 1 - PCV) 1990 Well Visit 65+ 2005 Covid-19 Vaccine (4 - 2023-2 5 season) 2024 04/21/2022, 04/20/2021, 08/03/2020 Zoster Vaccine Completed 09/11/2023, 05/29/2023 Influenza Vaccine Completed 02/16/2024, , 03/24/2022, Additional history exists Procedures Procedure Name Priority Date/Time Associated Diagnosis Comments CARDIOLOGY DOCUMENT SCAN Routine 05/02/2024 2:33 PM FOOT DOCTOR CARDIOLOGY DOCUMENT SCAN Routine 05/01/2024 6:39 PM FOOT DOCTOR from Last 3 Months Results * Cardiology Document Scan (05/02/2024 2:33 PM FOOT DOCTOR) Anatomical Region Laterality Modality Other us Trisha Banuelos NP CV CARDIAC SERVICES PROCEDUR ES Final Result * Cardiology Document Scan (05/01/2024 6:39 PM FOOT DOCTOR) Anatomical Region Laterality Modality Other us Tye Matt MD CV CARDIAC SERVICES PROCEDU RES Final Result from Last 3 Months Insurance [facility] Care Teams Information Director Relationship Specialty Start Date End Date Ney Montalvo MD [address] [facility] [address] [place] [address] PCP - General Family Medicine 07/15/24
--- OUTSIDE RECORDS SUMMARY | 2024-07-24 22:54 | XMS_ITS | Referral Summary ---
Author Organization [facility] Address [address] [place] [address] Care Team Providers Care Pc Support Specialist Name Role Phone Ney Montalvo MD Primary Care Provider Encounters Date Type Department Care Team Description 07/15/2024 Telephone [place] [address] [place] [phone] Vandana Williamson NP Vomiting; Medication Reaction 07/15/2024 1:00 PM LABORER SHELLFISH PROCESSING Office Visit [place] [address] [place] [phone] Vandana Williamson NP Persistent atrial fibrillation (HCC) (Primary Dx); Encounter for anticoagulation discussion and counseling; Right-sided heart failure, unspecified HF chronicity (HCC); Pulmonary hypertension (HCC); Hospital discharge follow-up 05/19/2024 10:00 AM LABORER SHELLFISH PROCESSING Office Visit [facility] [address] [place] [address] [place] [phone] Vandana Williamson NP New onset atrial fibrillation (CMS/HCC) (HCC) (Primary Dx); History of pulmonary embolism; Encounter for anticoagulation discussion and counseling; Hospital discharge follow-up; Essential hypertension 05/05/2024 Orders Only [place] [address] [place] [phone] Trisha Banuelos NP 05/02/2024 Orders Only [place] [address] [place] [phone] Tye Matt MD from Last 3 Months Allergies No known active allergies Medications atorvastatin [...] 2 (two) times a day 5 Active losartan (COZAAR) 25 mg tablet Take 1 tablet (25 mg total) by mouth daily 4 07/15/19 25 Discontinu ed(Alterna te therapy) apixaban (ELIQUIS) 5 mg tablet Take 1 tablet (5 mg total) by mouth 2 (two) times a day 07/15/19 25 Discontinu ed(Alterna te therapy) metoprolol tartrate (LOPRESSOR) 25 mg immediate release tablet Take 0.5 tablets (12.5 mg total) by mouth 2 (two) times a day 07/15/19 Discontinu ed(Alterna te therapy) Xarelto 15 mg tablet Take 1 tablet (15 mg total) by mouth daily with dinner 5 07/15/19 25 Discontinu ed(Alterna te therapy) warfarin (COUMADIN) 2 mg tabletIndications :Persistent atrial fibrillation (HCC) Take as directed; begin by taking 1 tablet daily. We may adjust your dose after the first blood test. 90 tablet 3 5 07/19/19 25 Discontinu ed(Alterna te therapy) Active Problems No known active problems Social History Tobacco Use Types Packs/Day Years [...] Comments Blood Pressure 92/64 07/15/2024 1:06 PM LABORER SHELLFISH PROCESSING Pulse 128 07/15/2024 1:06 PM LABORER SHELLFISH PROCESSING Temperature - - Respiratory Rate - - Oxygen Saturation 83% 07/15/2024 1:06 PM LABORER SHELLFISH PROCESSING Inhaled Oxygen Concentration - - Weight 114.8 kg (253 lb) 07/15/2024 1:06 PM LABORER SHELLFISH PROCESSING Height 157.5 cm (5' 2 ) 07/15/2024 1:06 PM LABORER SHELLFISH PROCESSING Body Mass Index 46.27 07/15/2024 1:06 PM LABORER SHELLFISH PROCESSING Plan of Treatment Not on file Procedures Procedure Name Priority Date/Time Associated Diagnosis Comments CARDIOLOGY DOCUMENT SCAN Routine 05/02/2024 2:33 PM LABORER SHELLFISH PROCESSING CARDIOLOGY DOCUMENT SCAN Routine 05/01/2024 6:39 PM LABORER SHELLFISH PROCESSING from Last 3 Months Results * Cardiology Document Scan (05/02/2024 2:33 PM LABORER SHELLFISH PROCESSING) Anatomical Region Laterality Modality Other us Trisha Banuelos NP CV CARDIAC SERVICES PROCEDUR ES Final Result * Cardiology Document Scan (05/01/2024 6:39 PM LABORER SHELLFISH PROCESSING) Anatomical Region Laterality Modality Other us Tye Matt MD CV CARDIAC SERVICES PROCEDU RES Final Result from Last 3 Months Insurance [facility] Care Teams Pc Support Specialist Relationship Specialty Start Date End Date Ney Montalvo MD [address] [facility] [address] [place] [address] PCP - General Family Medicine 07/15/24
--- NOTE | 2024-07-24 23:53 | ECG_ITS ---
Test Date: 2024-07-25 02:57:51 Measurements Intervals [place] Rate: 114 P: 0 PA: 0 QRS: -72 QRSD: 102 T: 58 QT: 321 QTc: 442 Interpretive Statements ATRIAL FIBRILLATION WITH RAPID VENTRICULAR RESPONSE LEFT ANTERIOR FASCICULAR BLOCK LOW QRS VOLTAGE IN LIMB LEADS ANTEROSEPTAL INFARCT, AGE INDETERMINATE BASELINE ARTIFACT- I, II, III, AVR, AVF, V1 ABNORMAL ECG Compared to ECG 07/25/2024 00:06:04 NO SIGNIFICANT CHANGE Electronically Signed On 07-25-2024 09:44:35 LABORATORY MONITOR by Ryland Mckeon D.O.
[2024-07-25] VITALS (41 sets, daily range): BP systolic 68–143; BP diastolic 34–93; PULSE 103–153; RESP 16–34; TEMP 36.5–37; O2SAT 90–100; BMI 47.7
[2024-07-25 00:08] LABS: NT Pro B Type Natriuretic Pept > 30000 pg/mL (19.9-100); Troponin I 0.584 ng/mL (0.000-0.034)
[2024-07-25 00:18] LABS: Lactic Acid Reflex 1.4 mmol/L (0.7-2.0)
[2024-07-25 00:35] LABS: Troponin I 0.546 ng/mL (0.000-0.034)
--- NOTE | 2024-07-25 00:45 | ED.WEAKNESS ---
HPI - Weakness General Chief complaint: Dizziness Stated complaint: dizziness, weakness Time Seen by Provider: 07/24/24 22:49 History of Present Illness HPI Narrative: 84-year-old female with extensive past medical history including CKD, hypertension, hyperlipidemia, generalized anxiety disorder, congestive heart failure, previous PE on Eliquis, atrial fibrillation. Patient presents to the emergency department for evaluation of generalized malaise and weakness. Patient states that she was just discharged from the hospital last month and was doing well, taking medications as described with her PCP with multiple medication changes including doses to her metoprolol and Lasix. She states that today she was feeling generalized weakness and leg and arm shaking while trying to ambulate. She slid out of bed onto her bottom and did not hit her head. She was unable to get up and called EMS for assistance. At that time she just required to lift assist and declined transfer to the hospital. She later called EMS back as she was feeling unsafe with how weak she was feeling and as she lives alone she did not want to risk any further injury. Patient presents presently and denies any chest pain shortness a breath, new or worsening swelling but states she is feeling shaking this in her legs and generalized weakness. She has complained of chronic back pain which is not new for her. Triage vitals notes that she is somewhat tachypneic and tachycardic with an irregular heart rate, no hypoxia or fever. Recent admission the hospital with acute CHF exacerbation with paroxysmal AFib secondary to the above and demand ischemia with NSTEMI. EMS applied oxygen for potential hypoxia but made a poor waveform. Related Data Home Medications ?Medication ?Instructions ?Recorded ?Confirmed ?Last Taken ?Type omeprazole 40 mg capsule,delayed 40 mg PO DAILY 04/30/24 06/04/24 Unknown History release Allergies Allergy/AdvReac Type Severity Reaction Status Date / Time pravastatin Allergy Unknown unknown Verified 07/24/24 20:32 alendronate sodium AdvReac Unknown gastritis Verified 07/24/24 20:32 Review of Systems Review of Systems: As reviewed above in HPI [facility] Past Medical History Medical History Spondylosis with myelopathy, lumbar region Schatzki's ring Pre-diabetes Opioid dependence with current use Obesity hypoventilation syndrome Morbid obesity due to excess calories Keratolysis exfoliativa Esophageal web Anxiety Chronic kidney disease, stage 3a Diffuse idiopathic skeletal hyperostosis Allergic sinusitis Chronic low back pain Generalized anxiety disorder Gastro-esophageal reflux disease without esophagitis Body mass index (BMI) 40.0-44.9, adult Peripheral vascular disease, unspecified History of tobacco use Surgical History Surgical History History of esophageal dilatation History of meniscectomy of right knee History of vertebroplasty History of colonoscopy with polypectomy Family History Family History Mother Asthma Patient's mother is in good health Sibling Patient's sister is in good health Patient's brother is in good health Other Family history of arthritis Social History Social History Social History: Surrogate medical decision maker: Mami Burns, daughter. Code status: Full code. Smoking packs per day: 2 Smoking cigarettes per day: 40.0 Years smoked: 10 Smoking pack-years: 20.00 Smoking status: Former smoker Second hand tobacco smoke exposure: No Alcohol intake: unknown Substance use: never Substance use type: does not use Do You Feel Safe in your Home?: Yes Lack of Transportation: No Lack of Food: Never True Current Housing: I Have Housing Concerned About Future Housing: No Difficulty Paying Gas/Electric Bills: No Difficulty Paying for Meds: No Currently Unemployed: No Education: High School Diploma/GED Difficulty w/ Childcare or Family Care: No Living arrangements: with family Occupation/Education: retired Spiritual care concerns: No Agree to blood products: Yes Exam Narrative: GENERAL: Morbidly obese, awake answering questions. Not any acute distress. HEAD: [Normocephalic, atraumatic.] EYES: [PERRLA and EOMI.] ENT: Nares clear, no rhinorrhea or epistaxis. Mucous membranes moist. NECK: Supple. CHEST: Coarse bibasilar breath sounds, mild tachypnea, no respiratory distress. HEART: Irregular heart rate with tachycardia.. No murmur heard. [Normal peripheral pulses.] ABDOMEN: [Soft, nondistended], [nontender], [No rigidity or guarding] EXTREMITIES: Normal range of motion. 2+ pitting edema SKIN: Warm, dry, no rash. NEURO: [No focal deficits]. Alert and oriented [x3.] PSYCH: [Normal mood and affect.] Course Vital Signs Vital signs: Vital Signs Pulse Rate 124 H 07/24/24 20:22 Respiratory Rate 18 07/24/24 20:22 Blood Pressure 154/132 H 07/24/24 20:22 Pulse Oximetry 94 07/24/24 20:22 Oxygen Delivery Room Air 07/24/24 20:22 Temperature 36.8 C 07/25/24 06:48 Pulse Rate 114 H 07/25/24 06:48 Respiratory Rate 29 H 07/25/24 06:48 Blood Pressure 105/53 L 07/25/24 06:48 Pulse Oximetry 95 07/25/24 06:48 Oxygen Delivery Nasal Cannula 07/24/24 23:00 Oxygen Flow Rate 2 07/24/24 23:00 MDM - Weakness MDM Narrative Medical decision making narrative: 84-year-old female with extensive past medical history including congestive heart failure, CKD, hypertension, generalized anxiety disorder, GERD. She presents to the emergency department for generalized weakness and shaking in her arms and legs. Patient lives alone and states she is not able to take care of herself and feels like she is going to fall frequently. Denies any chest pain shortness a breath. Has been taking her medications other there has been some confusion on her dose and regimen as noted by her PCP seen her last month. Patient admits to taking her Lasix infrequently but has been compliant with her metoprolol. Vital signs show blood pressure 105/77, pulse of 107, mild tachypnea 26, afebrile 36.2, 97% saturation on room air. She has some coarse bibasilar breath sounds, 2+ pitting edema in appears morbidly obese. Suspicion presently is for potential electrolyte disturbances given her diuretic therapy, volume overload given her Demadex volume status, CHF exacerbation, less likely ACS but she does have risk factors. Workup was ordered including a CBC, CMP, troponin, BNP, and lactic acid, chest x-ray and EKG. Workup reveals no leukocytosis or anemia. Normal platelet count. Chemistry panel shows some hyperkalemia 5.4, elevated BUN and creatinine likely vascular congestion from her fluid overload status rather than prerenal azotemia. Patient has had similar elevations in the past that responded nicely to aggressive diuresis. Patient would benefit from diuresis rather than fluid resuscitation based on her clinical volume overload in suspicion for acute CHF exacerbation. She was given 80 mg of IV Lasix and appear external catheter was placed. Repeat creatinine down trending. Troponin elevated at 0.584 which is around her previous elevations and sideways for 3 consecutive values likely indicative of no acute event or ischemia and likely troponin elevation without clearance from her kidneys. BNP elevated over 30,000 consistent with her volume overload status and acute CHF exacerbation. Chest x-ray shows low stable bilateral pleural effusions and pulmonary edema. Stable cardiomegaly. EKG shows atrial fibrillation with mildly elevated rapid ventricular response but no signs of acute ST segment elevations, depressions or inversions concerning for ischemia. Patient did require 2 L nasal cannula to maintain normal saturations throughout the encounter here in the ED. Patient require admission to the hospital at this time for continued evaluation and treatment of her CHF exacerbation, kidney injury likely secondary to vascular congestion and hypoxia requiring oxygen. Patient was accepted to an IMU monitored bed at this time for continued treatment after I spoke to the hospitalist and relayed the clinical exam, imaging findings and laboratory assessment. Medical Records Attestation: I reviewed the patient's medical records. Lab Data Attestation: I reviewed the patient's lab results. 07/25/24 05:55 07/25/24 02:45 Labs: Lab Results 07/24/24 07/24/24 Range/Units 21:36 23:58 WBC 8.6 (4.5-10.0) K/mm3 RBC 4.77 (4.2-5.4) M/mm3 Hgb 14.5 (12.0-15.0) g/dL Hct 46.6 (37.0-47.0) % MCV 97.7 (80-100) fl MCH 30.4 (26-34) pg MCHC 31.1 L (32-36) g/dl RDW 16.8 H (11.5-14.5) % Plt Count 203 D (150-375) k/mm3 MPV 10.8 H (7.4-10.4) fl Immature Gran % (Auto) 0.3 (0-0.5) % Neut % (Auto) 74.1 H (45.5-73.1) % Lymph % (Auto) 15.1 L (18.3-44.2) % [place] % (Auto) 9.6 H (2.6-8.5) % Eos % (Auto) 0.7 (0-4.4) % Baso % (Auto) 0.2 (0.2-1.2) % Lymph # (Auto) 1.30 (0.9-3.2) K/mm3 [place] # (Auto) 0.8 H (0.1-0.6) K/mm3 Eos # (Auto) 0.1 (0-0.3) K/mm3 Baso # (Auto) 0.0 (0.0-0.1) K/mm3 Abs Immat Gran (auto) 0.03 (0.00-0.031) K/mm3 Absolute Neuts (auto) 6.4 (1.3-6.7) K/mm3 Absolute Nucleated RBC 0.000 (0.0-0.012) K/mm3 Nucleated RBC % 0.0 (0.0-0.2) % Sodium 128 L (137-145) mmol/L Potassium 5.4 H (3.4-5.0) mmol/L Chloride 90 L (98-107) mmol/L Carbon Dioxide 35 H (22-30) mmol/L Anion Gap 3 L (4-12) mmol/L BUN 42 H D (7-17) mg/dL Creatinine 2.91 H (0.7-1.0) mg/dL Estim Creat Clear Calc 17 ml/min Estimated GFR 15 L (59 - ) Glucose 90 (65-110) mg/dL Lactic Acid 1.4 (0.7-2.0) mmol/L Calcium 10.4 H (8.4-10.2) mg/dL Total Bilirubin 0.8 (0.2-1.3) mg/dL AST 434 H (14-36) U/L ALT 234 H (6-35) U/L Alkaline Phosphatase 98 (38-126) U/L Troponin I 0.584 H* 0.546 H* (0.000-0.034) ng/mL NT-Pro-B Natriuret Pep > 12613 H (19.9-100) pg/mL Total Protein 7.0 (6.3-8.2) g/dL Albumin 3.6 (3.5-5.1) g/dL Imaging Data Attestation: I personally reviewed and interpreted this imaging study as follows: My impression: Bilateral pleural effusions consistent with CHF exacerbation Critical Care Time Critical Care Time Critical Care Time: Yes Total Critical Care Time: 75 Discharge Plan Discharge Clinical Impression: Acute exacerbation of CHF (congestive heart failure), Acute hypoxic respiratory failure, Bilateral pleural effusion, Elevated troponin, Elevated brain natriuretic peptide (BNP) level, Acute kidney injury Patient Disposition: Still a Patient Condition: Stable
[2024-07-25] MEDS: FUROSEMIDE INJ 100 MG/10 ML VIAL 80 MG IV PUSH (01:05)
--- NOTE | 2024-07-25 02:39 | ECG_ITS ---
Test Date: 2024-07-25 00:06:04 Measurements Intervals [place] Rate: 105 P: 0 MO: 0 QRS: -67 QRSD: 101 T: 42 QT: 316 QTc: 418 Interpretive Statements ATRIAL FIBRILLATION WITH RAPID VENTRICULAR RESPONSE LOW QRS VOLTAGE - DIFFUSE LEADS LEFT ANTERIOR FASCICULAR BLOCK ANTEROSEPTAL INFARCT, AGE INDETERMINATE BASELINE ARTIFACT- I, II, III, AVR, AVL, AVF, V2-V6 ABNORMAL ECG Compared to ECG 07/24/2024 21:34:58 NO SIGNIFICANT CHANGE Electronically Signed On 07-25-2024 06:48:19 CASE BRIEFER by Ryland Mckeon D.O.
[2024-07-25 03:22] LABS: Troponin I 0.543 ng/mL (0.000-0.034)
--- NOTE | 2024-07-25 03:38 | PM.IMHP ---
H&P: HPI History of Present Illness Date/Time: 07/25/24 03:38 Chief Complaint: 1. Fatigue 2. Shortness of breath Narrative: Klaudia Larry Johnny 4-year-old female with a medical history significant for AFib, GERD, seasonal allergies, obesity, dyslipidemia Recently managed from 06/03-, for a AFib and CHF exacerbation, she was discharged home but states that she declined functionally, on the day of presentation was so fatigued, that the fire department was summoned to help her up from the floor she fell; she initially refused to pursue an ED visit, but after they left, seeing that she resides alone, she decided to pursue and ED visit for fatigue, malaise and poor execution of her ADLs. She denies cough, fevers, chills, flank pain, dizziness, LOC or chest pain Work-up findings: BNP >22490 Troponin: 0.546 >> 0.543 Na 128 K 5.4 Cl 90 co235 AG 3 BUN 42 Cr 2.9 GFR 17 ECG: A-fib w/RVR, 112 CXR: Evidence of fluid congestion Klaudia Larry will be admitted, evaluated and managed for KEESHA, CHF exacerbation, hyperkalemia. Review of Systems Review of Systems: All systems reviewed & are unremarkable except as noted in HPI and below PMFSH Past Medical History Medical History Spondylosis with myelopathy, lumbar region Schatzki's ring Pre-diabetes Opioid dependence with current use Obesity hypoventilation syndrome Morbid obesity due to excess calories Keratolysis exfoliativa Esophageal web Anxiety Chronic kidney disease, stage 3a Diffuse idiopathic skeletal hyperostosis Allergic sinusitis Chronic low back pain Generalized anxiety disorder Gastro-esophageal reflux disease without esophagitis Body mass index (BMI) 40.0-44.9, adult Peripheral vascular disease, unspecified History of tobacco use Surgical History Surgical History History of esophageal dilatation History of meniscectomy of right knee History of vertebroplasty History of colonoscopy with polypectomy Family History Family History Mother Asthma Patient's mother is in good health Sibling Patient's sister is in good health Patient's brother is in good health Other Family history of arthritis Social History Social History Social History: Surrogate medical decision maker: Mami Burns, daughter. Code status: Full code. Smoking packs per day: 2 Smoking cigarettes per day: 40.0 Years smoked: 10 Smoking pack-years: 20.00 Smoking status: Former smoker Second hand tobacco smoke exposure: No Alcohol intake: unknown Substance use: never Substance use type: does not use Do You Feel Safe in your Home?: Yes Lack of Transportation: No Lack of Food: Never True Current Housing: I Have Housing Concerned About Future Housing: No Difficulty Paying Gas/Electric Bills: No Difficulty Paying for Meds: No Currently Unemployed: No Education: High School Diploma/GED Difficulty w/ Childcare or Family Care: No Living arrangements: with family Occupation/Education: retired Spiritual care concerns: No Agree to blood products: Yes Meds Home Medications and Allergies Home Medications ?Medication ?Instructions ?Recorded ?Confirmed ?Type loratadine 10 mg capsule 10 mg PO DAILY #100 caps 02/24/24 06/04/24 Rx omeprazole 40 mg capsule,delayed 40 mg PO DAILY 04/30/24 06/04/24 History release atorvastatin 10 mg tablet 10 mg PO DAILY #90 tabs 05/30/24 06/04/24 Rx clonazepam 0.5 mg tablet 0.5 mg PO DAILY PRN panic 06/14/24 Rx attack(s) #30 tabs tramadol 50 mg tablet 50 mg PO DAILY #30 tabs 06/14/24 Rx furosemide 20 mg tablet (Lasix) 20 mg PO DAILY #30 tabs 06/21/24 06/21/24 Rx potassium chloride 10 mEq 10 meq PO DAILY PRN when taking 06/21/24 06/21/24 Rx tablet,extended release (Klor-Con) furosemide 20mg #30 tabs metoprolol tartrate 25 mg tablet 12.5 mg (1/2 x 25 mg) PO BID #90 06/22/24 Rx tabs rivaroxaban 15 mg tablet (Xarelto) 15 mg PO QPM #30 tabs 07/13/24 Rx Allergies Allergy/AdvReac Type Severity Reaction Status Date / Time pravastatin Allergy Unknown unknown Verified 07/24/24 20:32 alendronate sodium AdvReac Unknown gastritis Verified 07/24/24 20:32 Vital Signs Vital Signs - 24 hr 02/23/25 20:22 07/24/24 20:29 07/24/24 20:30 Temperature Pulse Rate 124 H 115 H 120 H Respiratory Rate 18 29 H 24 H Blood Pressure 154/132 H Pulse Oximetry 94 92 Oxygen Delivery Room Air Oxygen Flow Rate 07/24/24 20:31 07/24/24 20:32 07/24/24 20:35 Temperature Pulse Rate 121 H 117 H 123 H Respiratory Rate 23 H 29 H 24 H Blood Pressure Pulse Oximetry 94 94 93 Oxygen Delivery Oxygen Flow Rate 07/24/24 20:45 07/24/24 20:49 07/24/24 21:00 Temperature Pulse Rate 117 H 121 H 122 H Respiratory Rate 18 25 H 21 H Blood Pressure 91/64 L Pulse Oximetry 95 93 95 Oxygen Delivery Oxygen Flow Rate 07/24/24 21:01 07/24/24 21:07 07/24/24 21:15 Temperature Pulse Rate 113 H 118 H 120 H Respiratory Rate 27 H 25 H 28 H Blood Pressure 95/69 L Pulse Oximetry 94 97 90 Oxygen Delivery Oxygen Flow Rate 07/24/24 21:30 07/24/24 21:38 07/24/24 21:41 Temperature Pulse Rate 110 H 109 H 111 H Respiratory Rate 29 H 26 H Blood Pressure 80/68 L Pulse Oximetry 94 Oxygen Delivery Oxygen Flow Rate 07/24/24 21:41 07/24/24 21:45 07/24/24 22:01 Temperature Pulse Rate 118 H 118 H 109 H Respiratory Rate 21 H 15 20 Blood Pressure 86/58 L Pulse Oximetry 96 95 Oxygen Delivery Oxygen Flow Rate 07/24/24 22:02 07/24/24 22:03 07/24/24 22:30 Temperature Pulse Rate 109 H 107 H 108 H Respiratory Rate 26 H 22 H 23 H Blood Pressure 81/62 L Pulse Oximetry Oxygen Delivery Oxygen Flow Rate 07/24/24 22:32 07/24/24 22:45 07/24/24 22:46 Temperature Pulse Rate 111 H 113 H 112 H Respiratory Rate 24 H 22 H 22 H Blood Pressure 104/60 92/62 L Pulse Oximetry Oxygen Delivery Oxygen Flow Rate 07/24/24 23:00 07/24/24 23:00 07/24/24 23:01 Temperature Pulse Rate 106 H 104 H Respiratory Rate 23 H 30 H Blood Pressure 93/74 L Pulse Oximetry 97 Oxygen Delivery Nasal Cannula Oxygen Flow Rate 2 07/24/24 23:18 07/24/24 23:30 07/24/24 23:31 Temperature Pulse Rate 108 H 110 H 119 H Respiratory Rate 28 H 24 H 27 H Blood Pressure 96/81 L Pulse Oximetry Oxygen Delivery Oxygen Flow Rate 07/24/24 23:45 07/24/24 23:46 07/24/24 23:59 Temperature 97.1 F L Pulse Rate 106 H 110 H 107 H Respiratory Rate 25 H 25 H 26 H Blood Pressure 87/66 L 104/77 Pulse Oximetry 97 Oxygen Delivery Oxygen Flow Rate 07/25/24 01:50 07/25/24 02:55 07/25/24 03:06 Temperature 98.1 F 97.7 F Pulse Rate 106 H 117 H 109 H Respiratory Rate 27 H 30 H 25 H Blood Pressure 143/87 H 98/55 L 108/84 Pulse Oximetry 97 98 95 Oxygen Delivery Oxygen Flow Rate Exam Const: General: in distress HENMT: Ears: TM's normal bilaterally Face/Nose/Sinus: Normal nares present Mouth: Yes moist mucous membranes Eyes: General: appearance normal, both eyes and all related structures Sclera: sclerae normal Pupils: Equal, round and reactive pupils present Neck: Neck: supple Resp: Auscultation: rales bilateral at the base and diminished lung sounds bilateral Cardio: Rate: regular rate Rhythm: abnormal rhythm Skin: General skin exam: normal color Wounds: no wounds Neuro: Speech: normal speech Motor exam (neuro): 5/5 motor strength present throughout Extrem: General: normal to inspection and pedal edema bilaterally Psych: Mental Status: mental status grossly normal H&P: Results Labs Labs: Short CBC 07/24/24 Range/Units 21:36 WBC 8.6 (4.5-10.0) K/mm3 Hgb 14.5 (12.0-15.0) g/dL Hct 46.6 (37.0-47.0) % Plt Count 203 D (150-375) k/mm3 BMP 07/24/24 21:36 Sodium 128 L Potassium 5.4 H Chloride 90 L Carbon Dioxide 35 H BUN 42 H D Creatinine 2.91 H Glucose 90 Calcium 10.4 H Cardiac Enzymes 07/24/24 07/24/24 07/25/24 Range/Units 21:36 23:58 02:45 Troponin I 0.584 H* 0.546 H* 0.543 H* (0.000-0.034) ng/mL Liver Function 07/24/24 Range/Units 21:36 Total Bilirubin 0.8 (0.2-1.3) mg/dL AST 434 H (14-36) U/L ALT 234 H (6-35) U/L Alkaline Phosphatase 98 (38-126) U/L Albumin 3.6 (3.5-5.1) g/dL Assessment and Plan Assessment and plan (1) Acute exacerbation of congestive heart failure: Code(s): I50.9 - Heart failure, unspecified Status: Acute (2) Gastro-esophageal reflux disease without esophagitis: Code(s): K21.9 - Gastro-esophageal reflux disease without esophagitis Status: Acute (3) Atrial fibrillation with rapid ventricular response: Code(s): I48.91 - Unspecified atrial fibrillation Status: Acute Plan Acute and principal conditions 1. Fluid overload; CHF exacerbation 2. Hyponatremia. probably 2/2 diuretics 3. Hyperkalemia. Likely 2/2 K supplements 4. KEESHA. likely 2/2 diuretics 5. Physical deconditioning. Rx: IV Lasix; I/O Monitor renal function; Nephrology consult ECHO Hold K supplements and replete as need; Telemetry monitoring Chronic and stable conditions !. Dyslipidemia. 2. GERD. 3. Chronic A-fib. 4. Obesity, BMI 45 Miscellaneous care. 1. Code status. Full 2. Nutrition. SCDs; heart healthy 3. VTE Prophylaxis. SCDs; Rivaroxaban Quality VTE Prophylaxis VTE prophylaxis: mechanical ordered and pharmacologic ordered Hospitalist [facility] Advance Care Plan I have confirmed that the patient's Advanced Care Plan is present, code status is documented, or surrogate decision maker is listed in patient medical record.: Yes Medication Reconciliation I have utilized all available resources to obtain, update and review the patients current medications (includes all prescriptions, OTC, herbals, cannabis, and nutritional supplements).: Yes The patient is not eligible for med reconciliation; the patient is in a emergent medical situation where delaying treatment would jeopardize the patients health.: Yes
[2024-07-25 06:01] LABS: Basophils Percent Auto 0.3 % (0.2-1.2); Eosinophils Absolute Auto 0.1 K/mm3 (0-0.3); Hematocrit 44.4 % (37.0-47.0); Immature Granulocyte Absolute 0.04 K/mm3 (0.00-0.031); Immature Granulocyte Percent A 0.4 % (0-0.5); Lymphocytes Absolute Auto 1.88 K/mm3 (0.9-3.2); Lymphocytes Percent Auto 19.7 % (18.3-44.2); Mean Corpuscular HGB Conc 31.5 g/dl (32-36); Mean Corpuscular Hemoglobin 30.3 pg (26-34); Mean Corpuscular Volume 96.1 fl (80-100); Mean Platelet Volume 11.4 fl (7.4-10.4); Monocytes Absolute Auto 0.9 K/mm3 (0.1-0.6); Monocytes Percent Auto 9.5 % (2.6-8.5); Neutrophils Absolute Auto 6.6 K/mm3 (1.3-6.7); Neutrophils Percent Auto 69.1 % (45.5-73.1); Platelet Count Result 216 k/mm3 (150-375); Red Blood Count 4.62 M/mm3 (4.2-5.4); Red Cell Distribution Width 16.7 % (11.5-14.5); White Blood Count 9.5 K/mm3 (4.5-10.0)
[2024-07-25] MEDS: FUROSEMIDE INJ 40 MG/4 ML VIAL IV PUSH (06:10)
[2024-07-25 06:40] LABS: Alanine Aminotransferase 253 U/L (6-35); Albumin Level 3.3 g/dL (3.5-5.1); Alkaline Phosphatase 96 U/L (38-126); Anion Gap 6 mmol/L (4-12); Aspartate Amino Transferase 396 U/L (14-36); Bilirubin,Total 0.6 mg/dL (0.2-1.3); Blood Urea Nitrogen 43 mg/dL (7-17); Calcium 10.2 mg/dL (8.4-10.2); Carbon Dioxide 31 mmol/L (22-30); Chloride 92 mmol/L (98-107); Estimated CRCL calculation 17 ml/min; Estimated Glomerular Filt Rate 16; Glucose 81 mg/dL (65-110); Potassium 5.2 mmol/L (3.4-5.0); Sodium 129 mmol/L (137-145)
--- NOTE | 2024-07-25 09:48 | PM.IMPN ---
Progress Note: A&P Assessment and Plan (1) Acute exacerbation of congestive heart failure: Code(s): I50.9 - Heart failure, unspecified Status: Acute Assessment and Plan: Patient was aggressively diuresed overnight Repeat BNP at 10:00 a.m. (2) Acute on chronic kidney failure: Code(s): N17.9 - Acute kidney failure, unspecified; N18.9 - Chronic kidney disease, unspecified Status: Acute Assessment and Plan: Creatinine increasing Time Spent With Patient Time with patient: 25 - 35 minutes Subjective Date/time seen: 07/25/24 09:48 Interval history: 84-year-old female with a medical history significant for AFib, GERD, seasonal allergies, obesity, dyslipidemia with CHF exacerbation Objective Data Vital Signs Vital Signs: Vital Signs - 24 hr 07/24/24 20:22 07/24/24 20:29 07/24/24 20:30 Temperature Pulse Rate 124 H 115 H 120 H Respiratory Rate 18 29 H 24 H Blood Pressure 154/132 H Pulse Oximetry 94 92 Oxygen Delivery Room Air Oxygen Flow Rate 07/24/24 20:31 07/24/24 20:32 07/24/24 20:35 Temperature Pulse Rate 121 H 117 H 123 H Respiratory Rate 23 H 29 H 24 H Blood Pressure Pulse Oximetry 94 94 93 Oxygen Delivery Oxygen Flow Rate 07/24/24 20:45 07/24/24 20:49 07/24/24 21:00 Temperature Pulse Rate 117 H 121 H 122 H Respiratory Rate 18 25 H 21 H Blood Pressure 91/64 L Pulse Oximetry 95 93 95 Oxygen Delivery Oxygen Flow Rate 07/24/24 21:01 07/24/24 21:07 07/24/24 21:15 Temperature Pulse Rate 113 H 118 H 120 H Respiratory Rate 27 H 25 H 28 H Blood Pressure 95/69 L Pulse Oximetry 94 97 90 Oxygen Delivery Oxygen Flow Rate 07/24/24 21:30 07/24/24 21:38 07/24/24 21:41 Temperature Pulse Rate 110 H 109 H 111 H Respiratory Rate 29 H 26 H Blood Pressure 80/68 L Pulse Oximetry 94 Oxygen Delivery Oxygen Flow Rate 07/24/24 21:41 07/24/24 21:45 07/24/24 22:01 Temperature Pulse Rate 118 H 118 H 109 H Respiratory Rate 21 H 15 20 Blood Pressure 86/58 L Pulse Oximetry 96 95 Oxygen Delivery Oxygen Flow Rate 07/24/24 22:02 07/24/24 22:03 07/24/24 22:30 Temperature Pulse Rate 109 H 107 H 108 H Respiratory Rate 26 H 22 H 23 H Blood Pressure 81/62 L Pulse Oximetry Oxygen Delivery Oxygen Flow Rate 07/24/24 22:32 07/24/24 22:45 07/24/24 22:46 Temperature Pulse Rate 111 H 113 H 112 H Respiratory Rate 24 H 22 H 22 H Blood Pressure 104/60 92/62 L Pulse Oximetry Oxygen Delivery Oxygen Flow Rate 07/24/24 23:00 07/24/24 23:00 07/24/24 23:01 Temperature Pulse Rate 106 H 104 H Respiratory Rate 23 H 30 H Blood Pressure 93/74 L Pulse Oximetry 97 Oxygen Delivery Nasal Cannula Oxygen Flow Rate 2 07/24/24 23:18 07/24/24 23:30 07/24/24 23:31 Temperature Pulse Rate 108 H 110 H 119 H Respiratory Rate 28 H 24 H 27 H Blood Pressure 96/81 L Pulse Oximetry Oxygen Delivery Oxygen Flow Rate 07/24/24 23:45 07/24/24 23:46 07/24/24 23:59 Temperature 97.1 F L Pulse Rate 106 H 110 H 107 H Respiratory Rate 25 H 25 H 26 H Blood Pressure 87/66 L 104/77 Pulse Oximetry 97 Oxygen Delivery Oxygen Flow Rate 07/25/24 01:50 07/25/24 02:55 07/25/24 03:06 Temperature 98.1 F 97.7 F Pulse Rate 106 H 117 H 109 H Respiratory Rate 27 H 30 H 25 H Blood Pressure 143/87 H 98/55 L 108/84 Pulse Oximetry 97 98 95 Oxygen Delivery Oxygen Flow Rate 07/25/24 05:16 07/25/24 06:48 07/25/24 07:47 Temperature 97.9 F 98.3 F Pulse Rate 122 H 114 H 113 H Respiratory Rate 18 29 H 20 Blood Pressure 79/53 L 105/53 L 84/68 L Pulse Oximetry 96 95 96 Oxygen Delivery Oxygen Flow Rate Intake/Output Intake/Output: Intake & Output 07/22/24 07/23/24 07/24/24 07/25/24 23:59 23:59 23:59 23:59 Output Total 0 Balance 0 Meds/Results Medications: Active Medications Generic Name Dose Route Start Last Admin Trade Name Freq PRN Reason Stop Dose Admin Acetaminophen 650 mg 07/25/24 03:37 Acetaminophen 325 Mg Tablet PO Q4H PRN Mild Pain (1-3) or Fever Bisacodyl 5 mg 07/25/24 03:37 Bisacodyl 5 Mg Tablet Ec PO DAILY PRN Constipation Docusate Sodium 100 mg 07/25/24 09:00 Docusate Sodium 100 Mg Capsule PO BID BEVERLY Furosemide 40 mg 07/25/24 06:00 07/25/24 06:10 Furosemide Inj 40 Mg/4 Ml Vial IV PUSH 40 mg Q6HR BEVERLY Administration Furosemide 40 mg 07/25/24 09:00 Furosemide Inj 40 Mg/4 Ml Vial IV PUSH BID BEVERLY Heparin Sodium (Porcine) 5,000 units 07/25/24 09:00 Heparin Sodium 5,000 Units/Ml Vial SUB-Q Q12HR BEVERLY Melatonin 5 mg 07/25/24 03:37 Melatonin 5 Mg Tablet PO HS PRN Insomnia Ondansetron HCl 4 mg 07/25/24 01:56 Ondansetron Inj 4 Mg/2 Ml Vial IV PUSH Q4H PRN Nausea Perflutren Lipid Microsphere 0 ml 07/25/24 03:52 Perflutren Lipid Microspheres 1.5 Ml Vial Diluted To 10 Ml Total Volume IV PUSH 07/28/24 03:52 ONCE PRN adequate visualization Protocol Prochlorperazine Edisylate 10 mg 07/25/24 03:37 Prochlorperazine Edisylate 10 Mg/2 Ml Vial IV PUSH Q6H PRN Nausea And Vomiting Radiology Results: ITS Impressions Chest X-Ray 07/25/24 06:31 Impression: Small bilateral pleural effusions with moderate bibasilar pulmonary edema/atelectasis. Stable cardiomegaly. Labs Labs: Laboratory Results - last 24 hr 07/24/24 07/24/24 07/25/24 21:36 23:58 02:45 WBC 8.6 RBC 4.77 Hgb 14.5 Hct 46.6 MCV 97.7 MCH 30.4 MCHC 31.1 L RDW 16.8 H Plt Count 203 D MPV 10.8 H Immature Gran % (Auto) 0.3 Neut % (Auto) 74.1 H Lymph % (Auto) 15.1 L [place] % (Auto) 9.6 H Eos % (Auto) 0.7 Baso % (Auto) 0.2 Lymph # (Auto) 1.30 [place] # (Auto) 0.8 H Eos # (Auto) 0.1 Baso # (Auto) 0.0 Abs Immat Gran (auto) 0.03 Absolute Neuts (auto) 6.4 Absolute Nucleated RBC 0.000 Nucleated RBC % 0.0 Sodium 128 L 129 L Potassium 5.4 H 5.2 H Chloride 90 L 92 L Carbon Dioxide 35 H 31 H Anion Gap 3 L 6 BUN 42 H D 43 H Creatinine 2.91 H 2.87 H Estim Creat Clear Calc 17 17 Estimated GFR 15 L 16 L Glucose 90 81 Lactic Acid 1.4 Calcium 10.4 H 10.2 Total Bilirubin 0.8 0.6 AST 434 H 396 H ALT 234 H 253 H Alkaline Phosphatase 98 96 Troponin I 0.584 H* 0.546 H* 0.543 H* NT-Pro-B Natriuret Pep > 31527 H Total Protein 7.0 6.0 L Albumin 3.6 3.3 L 07/25/24 05:55 WBC 9.5 RBC 4.62 Hgb 14.0 Hct 44.4 MCV 96.1 MCH 30.3 MCHC 31.5 L RDW 16.7 H Plt Count 216 MPV 11.4 H Immature Gran % (Auto) 0.4 Neut % (Auto) 69.1 Lymph % (Auto) 19.7 [place] % (Auto) 9.5 H Eos % (Auto) 1.0 Baso % (Auto) 0.3 Lymph # (Auto) 1.88 [place] # (Auto) 0.9 H Eos # (Auto) 0.1 Baso # (Auto) 0.0 Abs Immat Gran (auto) 0.04 H Absolute Neuts (auto) 6.6 Absolute Nucleated RBC 0.000 Nucleated RBC % 0.0 Sodium Potassium Chloride Carbon Dioxide Anion Gap BUN Creatinine Estim Creat Clear Calc Estimated GFR Glucose Lactic Acid Calcium Total Bilirubin AST ALT Alkaline Phosphatase Troponin I NT-Pro-B Natriuret Pep Total Protein Albumin Hospitalist MIPS Advance Care Plan I have confirmed that the patient's Advanced Care Plan is present, code status is documented, or surrogate decision maker is listed in patient medical record.: Yes
[2024-07-25] MEDS: DOCUSATE SODIUM 100 MG CAPSULE PO (10:35)
[2024-07-25] MEDS: HEPARIN SODIUM 5,000 UNITS/ML VIAL 5000 UNITS SUB-Q (10:35)
[2024-07-25 10:50] LABS: Anion Gap 9 mmol/L (4-12); Blood Urea Nitrogen 49 mg/dL (7-17); Calcium 10.4 mg/dL (8.4-10.2); Carbon Dioxide 32 mmol/L (22-30); Chloride 89 mmol/L (98-107); Estimated CRCL calculation 16 ml/min; Estimated Glomerular Filt Rate 14; Glucose 107 mg/dL (65-110); Potassium 5.8 mmol/L (3.4-5.0); Sodium 130 mmol/L (137-145)
--- NOTE | 2024-07-25 11:57 | PC.NURSE ---
Lunch ordered @ 11:57 MB
--- NOTE | 2024-07-25 13:25 | ADMGEN ---
This patient, Klaudia Larry, was admitted to Intensive Care Unit-10. Patient/family oriented to hospital policies and general routines including ID bracelet, bed and alarms, visiting hours, pain management, procedures, bathroom and other care routines, personal items, smoking policy, room service/diet, and visiting hours. Information on how to activate the Rapid Response Team has been discussed. Patient/Family are encouraged to report perceived risks to care and to ask questions if they do not understand what they are told or what they should do.
[2024-07-25 13:33] LABS: Glucose Point of Care 104 mg/dl (65-105)
[2024-07-25] MEDS: SODIUM ZIRCONIUM CYCLOSILICATE 10 GM POWD.PACK PO (13:37)
[2024-07-25] MEDS: INSULIN HUMAN REGULAR (*BKC) 100 UNITS/ML 10 UNITS IV PUSH (13:37)
[2024-07-25] MEDS: DEXTROSE 50% 25 GM/50 ML SYRINGE IV PUSH (13:37)
--- NOTE | 2024-07-25 15:10 | PC.NURSE ---
Pt bp reading low, Zee Garduno at bedside. Updated on status. Zee called Dr. Karmally. Flood to bedside for orders and line placement.
[2024-07-25 15:26] LABS: Glucose Point of Care 96 mg/dl (65-105)
[2024-07-25 15:42] LABS: Anion Gap 8 mmol/L (4-12); Blood Urea Nitrogen 49 mg/dL (7-17); Carbon Dioxide 29 mmol/L (22-30); Chloride 89 mmol/L (98-107); Estimated CRCL calculation 17 ml/min; Estimated Glomerular Filt Rate 16; Glucose 84 mg/dL (65-110); Potassium 4.7 mmol/L (3.4-5.0); Sodium 126 mmol/L (137-145)
[2024-07-25] MEDS: SODIUM CHLORIDE 0.9% IV 500 ML IV CONT (15:45)
--- NOTE | 2024-07-25 16:04 | P.PNIM_ITS ---
Progress Note: A&P Assessment and Plan (1) Hypotension: Code(s): I95.9 - Hypotension, unspecified Status: Acute Assessment and Plan: ICU consult, patient placed ICU status 500 Cc bolus 50 g 25% albumin Consented for central line and pressors ABG pending Blood cultures pending UA pending (2) Acute exacerbation of congestive heart failure: Code(s): I50.9 - Heart failure, unspecified Status: Acute Assessment and Plan: Patient was aggressively diuresed overnight Repeat BNP at 10:00 a.m. with increasing hyperkalemia and worsening renal function Cardiology consulted pending recommendations Echo pending (3) Acute on chronic kidney failure: Code(s): N17.9 - Acute kidney failure, unspecified; N18.9 - Chronic kidney disease, unspecified Status: Acute Assessment and Plan: Creatinine increasing Nephrology consulted Paez placed UA Urine osmol, sodium, protein, creatinine (4) Hyperkalemia: Code(s): E87.5 - Hyperkalemia Status: Acute Assessment and Plan: IV insulin and dextrose Lokelma Repeat K improving (5) Hyponatremia: Code(s): E87.1 - Hypo-osmolality and hyponatremia Status: Acute Assessment and Plan: IV fluids Nephrology consulted (6) Shock liver: Code(s): K72.00 - Acute and subacute hepatic failure without coma Status: Acute Assessment and Plan: Daily CMP (7) Elevated troponin: Code(s): R79.89 - Other specified abnormal findings of blood chemistry Status: Acute Assessment and Plan: EKG shows atrial fibrillation with RVR rate of 105, it QTC 418 Time Spent With Patient Time with patient: Greater than 35 minutes Subjective Date/time seen: 07/25/24 16:04 Interval history: 84-year-old female with a medical history significant for AFib, GERD, seasonal allergies, obesity, dyslipidemia with CHF exacerbation. While in the ED the patient's blood pressures were soft with maps were over 65. When the patient arrived to ICU is over fluid status she is awake and alert with soft blood pressures. She was treated for hyperkalemia with repeat labs ordered. At 3:00 p.m. the patient became hypotensive, and SYSTEMS SUPPORT SPECIALIST bedside. ICU attending consulted, with orders placed. Swing and P updated on patient's plan. Review of Systems Review of Systems: All systems reviewed & are unremarkable except as noted in HPI and below Exam Narrative: General: Drowsy HEENT: normocephalic, atraumatic. Mucous membranes moist. EOMI, PERRLA, bilateral sclera anicteric, no conjunctival injection. Neck supple without JVD, lymphadenopathy, or bruit. Respiratory: Diminished to ascultation bilaterally. No rales/rhonic/wheezes. Cardiovascular: Regular rate and rhythm, normal S1-S2 upon ascultation. No murmurs, rubs, or clicks. PMI is nondisplaced, capillary refill less than 3 second. Abdomen: Obese Soft, round, no pulsatile masses, nondistended and nontender. No rebound, no guarding. No CVA tenderness, no hepatosplenomegaly. Bowel sounds present to all four quadrants. No high pitch or tinkling sounds, resonant to percussion. Extremities: No cyanosis, clubbing, or edema present. Pulses are palpable 2/2. Active ROM to all four extremities. Neuro: Alert and orientated x 4. PERRLA. Cranial nerves 2-12 intact without focal deficit. Skin: Warm, dry, and intact, without rash, erythema, or lesion. Psych: pleasant, cooperative, normal speech, normal affect, no hallucinations, no dysarthia Paez placed minimal yellow urine Objective Data Vital Signs Vital Signs: Vital Signs - 24 hr 07/24/24 20:22 07/24/24 20:29 07/24/24 20:30 Temperature Pulse Rate 124 H 115 H 120 H Respiratory Rate 18 29 H 24 H Blood Pressure 154/132 H Pulse Oximetry 94 92 Oxygen Delivery Room Air Oxygen Flow Rate 07/24/24 20:31 07/24/24 20:32 07/24/24 20:35 Temperature Pulse Rate 121 H 117 H 123 H Respiratory Rate 23 H 29 H 24 H Blood Pressure Pulse Oximetry 94 94 93 Oxygen Delivery Oxygen Flow Rate 07/24/24 20:45 07/24/24 20:49 07/24/24 21:00 Temperature Pulse Rate 117 H 121 H 122 H Respiratory Rate 18 25 H 21 H Blood Pressure 91/64 L Pulse Oximetry 95 93 95 Oxygen Delivery Oxygen Flow Rate 07/24/24 21:01 07/24/24 21:07 07/24/24 21:15 Temperature Pulse Rate 113 H 118 H 120 H Respiratory Rate 27 H 25 H 28 H Blood Pressure 95/69 L Pulse Oximetry 94 97 90 Oxygen Delivery Oxygen Flow Rate 07/24/24 21:30 07/24/24 21:38 07/24/24 21:41 Temperature Pulse Rate 110 H 109 H 111 H Respiratory Rate 29 H 26 H Blood Pressure 80/68 L Pulse Oximetry 94 Oxygen Delivery Oxygen Flow Rate 07/24/24 21:41 07/24/24 21:45 07/24/24 22:01 Temperature Pulse Rate 118 H 118 H 109 H Respiratory Rate 21 H 15 20 Blood Pressure 86/58 L Pulse Oximetry 96 95 Oxygen Delivery Oxygen Flow Rate 07/24/24 22:02 07/24/24 22:03 07/24/24 22:30 Temperature Pulse Rate 109 H 107 H 108 H Respiratory Rate 26 H 22 H 23 H Blood Pressure 81/62 L Pulse Oximetry Oxygen Delivery Oxygen Flow Rate 07/24/24 22:32 07/24/24 22:45 07/24/24 22:46 Temperature Pulse Rate 111 H 113 H 112 H Respiratory Rate 24 H 22 H 22 H Blood Pressure 104/60 92/62 L Pulse Oximetry Oxygen Delivery Oxygen Flow Rate 07/24/24 23:00 07/24/24 23:00 07/24/24 23:01 Temperature Pulse Rate 106 H 104 H Respiratory Rate 23 H 30 H Blood Pressure 93/74 L Pulse Oximetry 97 Oxygen Delivery Nasal Cannula Oxygen Flow Rate 2 07/24/24 23:18 07/24/24 23:30 07/24/24 23:31 Temperature Pulse Rate 108 H 110 H 119 H Respiratory Rate 28 H 24 H 27 H Blood Pressure 96/81 L Pulse Oximetry Oxygen Delivery Oxygen Flow Rate 07/24/24 23:45 07/24/24 23:46 07/24/24 23:59 Temperature 97.1 F L Pulse Rate 106 H 110 H 107 H Respiratory Rate 25 H 25 H 26 H Blood Pressure 87/66 L 104/77 Pulse Oximetry 97 Oxygen Delivery Oxygen Flow Rate 07/25/24 01:50 07/25/24 02:55 07/25/24 03:06 Temperature 98.1 F 97.7 F Pulse Rate 106 H 117 H 109 H Respiratory Rate 27 H 30 H 25 H Blood Pressure 143/87 H 98/55 L 108/84 Pulse Oximetry 97 98 95 Oxygen Delivery Oxygen Flow Rate 07/25/24 05:16 07/25/24 06:48 07/25/24 07:47 Temperature 97.9 F 98.3 F Pulse Rate 122 H 114 H 113 H Respiratory Rate 18 29 H 20 Blood Pressure 79/53 L 105/53 L 84/68 L Pulse Oximetry 96 95 96 Oxygen Delivery Oxygen Flow Rate 07/25/24 11:56 Temperature Pulse Rate 111 H Respiratory Rate 17 Blood Pressure 93/57 L Pulse Oximetry 98 Oxygen Delivery Oxygen Flow Rate Intake/Output Intake/Output: Intake & Output 07/22/24 07/23/24 07/24/24 07/25/24 23:59 23:59 23:59 23:59 Output Total 0 Balance 0 Meds/Results Medications: Active Medications Generic Name Dose Route Start Last Admin Trade Name Freq PRN Reason Stop Dose Admin Acetaminophen 650 mg 07/25/24 03:37 Acetaminophen 325 Mg Tablet PO Q4H PRN Mild Pain (1-3) or Fever Bisacodyl 5 mg 07/25/24 03:37 Bisacodyl 5 Mg Tablet Ec PO DAILY PRN Constipation Docusate Sodium 100 mg 07/25/24 09:00 07/25/24 10:35 Docusate Sodium 100 Mg Capsule PO 100 mg BID BEVERLY Administration Furosemide 40 mg 07/25/24 06:00 07/25/24 06:10 Furosemide Inj 40 Mg/4 Ml Vial IV PUSH 40 mg Q6HR BEVERLY Administration Furosemide 40 mg 07/25/24 09:00 07/25/24 10:36 Furosemide Inj 40 Mg/4 Ml Vial IV PUSH Not Given BID BEVERLY Heparin Sodium (Porcine) 5,000 units 07/25/24 09:00 07/25/24 10:35 Heparin Sodium 5,000 Units/Ml Vial SUB-Q 5,000 units Q12HR BEVERLY Administration Albumin Human 200 mls @ 60 mls/hr 07/25/24 15:36 Albutein IVPB 07/25/24 18:55 ONCE ONE Sodium Chloride 500 mls @ 500 mls/hr 07/25/24 15:50 Normal Saline Iv IV CONT 07/25/24 16:49 .Q1H ONE Melatonin 5 mg 07/25/24 03:37 Melatonin 5 Mg Tablet PO HS PRN Insomnia Metoprolol Tartrate 25 mg 07/25/24 21:00 Metoprolol Tartrate 25 Mg Tablet PO Q12HR BEVERLY Ondansetron HCl 4 mg 07/25/24 01:56 Ondansetron Inj 4 Mg/2 Ml Vial IV PUSH Q4H PRN Nausea Perflutren Lipid Microsphere 0 ml 07/25/24 03:52 Perflutren Lipid Microspheres 1.5 Ml Vial Diluted To 10 Ml Total Volume IV PUSH 07/28/24 03:52 ONCE PRN adequate visualization Protocol Prochlorperazine Edisylate 10 mg 07/25/24 03:37 Prochlorperazine Edisylate 10 Mg/2 Ml Vial IV PUSH Q6H PRN Nausea And Vomiting Radiology Results: ITS Impressions Chest X-Ray 07/25/24 06:31 Impression: Small bilateral pleural effusions with moderate bibasilar pulmonary edema/atelectasis. Stable cardiomegaly. Labs Labs: Laboratory Results - last 24 hr 07/24/24 07/24/24 07/25/24 21:36 23:58 02:45 WBC 8.6 RBC 4.77 Hgb 14.5 Hct 46.6 MCV 97.7 MCH 30.4 MCHC 31.1 L RDW 16.8 H Plt Count 203 D MPV 10.8 H Immature Gran % (Auto) 0.3 Neut % (Auto) 74.1 H Lymph % (Auto) 15.1 L [place] % (Auto) 9.6 H Eos % (Auto) 0.7 Baso % (Auto) 0.2 Lymph # (Auto) 1.30 [place] # (Auto) 0.8 H Eos # (Auto) 0.1 Baso # (Auto) 0.0 Abs Immat Gran (auto) 0.03 Absolute Neuts (auto) 6.4 Absolute Nucleated RBC 0.000 Nucleated RBC % 0.0 Sodium 128 L 129 L Potassium 5.4 H 5.2 H Chloride 90 L 92 L Carbon Dioxide 35 H 31 H Anion Gap 3 L 6 BUN 42 H D 43 H Creatinine 2.91 H 2.87 H Estim Creat Clear Calc 17 17 Estimated GFR 15 L 16 L Glucose 90 81 POC Capillary Glucose Lactic Acid 1.4 Calcium 10.4 H 10.2 Total Bilirubin 0.8 0.6 AST 434 H 396 H ALT 234 H 253 H Alkaline Phosphatase 98 96 Troponin I 0.584 H* 0.546 H* 0.543 H* NT-Pro-B Natriuret Pep > 53680 H Total Protein 7.0 6.0 L Albumin 3.6 3.3 L 07/25/24 07/25/24 07/25/24 05:55 10:17 13:30 WBC 9.5 RBC 4.62 Hgb 14.0 Hct 44.4 MCV 96.1 MCH 30.3 MCHC 31.5 L RDW 16.7 H Plt Count 216 MPV 11.4 H Immature Gran % (Auto) 0.4 Neut % (Auto) 69.1 Lymph % (Auto) 19.7 [place] % (Auto) 9.5 H Eos % (Auto) 1.0 Baso % (Auto) 0.3 Lymph # (Auto) 1.88 [place] # (Auto) 0.9 H Eos # (Auto) 0.1 Baso # (Auto) 0.0 Abs Immat Gran (auto) 0.04 H Absolute Neuts (auto) 6.6 Absolute Nucleated RBC 0.000 Nucleated RBC % 0.0 Sodium 130 L Potassium 5.8 H Chloride 89 L Carbon Dioxide 32 H Anion Gap 9 BUN 49 H Creatinine 3.09 H Estim Creat Clear Calc 16 Estimated GFR 14 L Glucose 107 POC Capillary Glucose 104 Lactic Acid Calcium 10.4 H Total Bilirubin AST ALT Alkaline Phosphatase Troponin I NT-Pro-B Natriuret Pep Total Protein Albumin 07/25/24 07/25/24 15:02 15:19 WBC RBC Hgb Hct MCV MCH MCHC RDW Plt Count MPV Immature Gran % (Auto) Neut % (Auto) Lymph % (Auto) [place] % (Auto) Eos % (Auto) Baso % (Auto) Lymph # (Auto) [place] # (Auto) Eos # (Auto) Baso # (Auto) Abs Immat Gran (auto) Absolute Neuts (auto) Absolute Nucleated RBC Nucleated RBC % Sodium 126 L Potassium 4.7 Chloride 89 L Carbon Dioxide 29 Anion Gap 8 BUN 49 H Creatinine 2.78 H Estim Creat Clear Calc 17 Estimated GFR 16 L Glucose 84 POC Capillary Glucose 96 Lactic Acid Calcium 10.0 Total Bilirubin AST ALT Alkaline Phosphatase Troponin I NT-Pro-B Natriuret Pep Total Protein Albumin Quality VTE Prophylaxis VTE prophylaxis: mechanical ordered and pharmacologic ordered Hospitalist MIPS Advance Care Plan I have confirmed that the patient's Advanced Care Plan is present, code status is documented, or surrogate decision maker is listed in patient medical record.: Yes Medication Reconciliation I have utilized all available resources to obtain, update and review the patients current medications (includes all prescriptions, OTC, herbals, cannabis, and nutritional supplements).: Yes
[2024-07-25 16:31] LABS: Ammonia < 9 umol/L (9-30)
[2024-07-25] MEDS: ALBUMIN HUMAN 25% 25 GM/100 ML 200 ML IVPB (16:38)
[2024-07-25 16:40] LABS: Alveolar/Arterial O2 Gradient 89.7 mmHg; Base Excess ABG 3.4 mEq/l (+/-2.0); Fractional Inspired Oxygen 32 %; HCO3 ABG 30.8 mEq/l (22.0-26.0); Oxygen Content ABG 17.3 %vol (16.0-22.0); Oxygen Saturation ABG 92.3 % (95.0-100.0); Oxyhemoglobin 91.7 % THb (90.0-100.0); PCO2 ABG 59.4 mmHg (35.0-45.0); PO2 FiO2 Ratio Arterial Blood 2.16 %; Total Hemoglobin 13.4 g/dL (12.0-18.0); pH ABG 7.333 (7.350-7.450)
[2024-07-25 16:42] LABS: Device NASAL CANNULA; Site Drawn RIGHT RADIAL
[2024-07-25 16:46] LABS: D Dimer 12.55 ug/mL (<0.48)
[2024-07-25 16:49] LABS: Lactic Acid Reflex 2.4 mmol/L (0.7-2.0)
[2024-07-25 16:55] LABS: Creatinine Urine 202.4 mg/dL
[2024-07-25] MEDS: NOREPINEPHRINE 8 MG/D5W 250 ML 8 MG/250 ML BAG 9.38 MG IV CONT (17:00)
--- NOTE | 2024-07-25 17:00 | PM.CCN ---
Critical Care Event Note Summary Code activated: No Narrative: This case had a high probability of a clinically significant, sudden, or life threatening deterioration of this patient's condition which required my full and direct attention, intervention and personal management.
[2024-07-25 17:11] LABS: Procalcitonin 0.2 ng/mL
[2024-07-25 17:14] LABS: Troponin I 0.468 ng/mL (0.000-0.034)
[2024-07-25 17:17] LABS: Sodium Urine Random 7 meq/L
[2024-07-25] MEDS: AMIODARONE 150 MG/D5W 100 ML 150 MG/100 ML BAG 600 MG IV CONT (18:10)
[2024-07-25] MEDS: AMIODARONE 360 MG/D5W 200 ML 360 MG/200 ML BAG 33.33 MG IV CONT (18:10)
--- NOTE | 2024-07-25 18:27 | PM.EVENT ---
Event Note Event Note Event Note: S: I received a call from the nurse practitioner rounding on the patient today at about 16:45 requesting that I evaluate the patient due to a decline in condition. Chart was briefly reviewed and in summary she presented to the ER last night with dizziness and weakness. Clinically it was felt that she had fluid overload and was treated for a CHF exacerbation. She was also noted to have an acute kidney injury, hyponatremia, and hyperkalemia. She was given a hefty dose of IV diuretics and has had poor urine output throughout the course of the day. Blood pressures since arrival to the ED last night have been persistently low and occasionally up to the low end of normal. She was given a 500 mL crystalloid bolus and IV albumin without much improvement. At the time my evaluation the patient is somnolent but arousable and is alert and oriented. Overall she was just not feeling well but she does not elaborate. She denies headache, chest pain, abdominal pain, shortness of breath (although she is obviously short of breath), nausea, vomiting, diarrhea, and dysuria. O: Acutely appearing female in the semi-Cristobal position in bed. Initially she was alert and oriented however as the evening went on she became less and less responsive and at 1 point developed garbled speech which persisted. Pupils are reactive. Conjunctivae are injected. Mucous membranes tacky. Oropharynx carotid and not visualized. Neck exam is limited due to neck circumference, no obvious JVD. Tachypneic with conversational dyspnea. When she falls asleep it is obvious that she has sleep apnea. Lung sounds or coarse throughout with scattered crackles at the bases. Heart rate is in the a 1 teens to 130s and she is in atrial fibrillation. Abdomen is morbidly obese. She has pitting edema of the lower legs. She did not participate in the neurologic exam whatsoever. No obvious facial asymmetry. She does withdrawal to pain in all extremities. A/P: 1. Shock: Etiology is not entirely clear. Septic shock is considered however there is no obvious source of infection and she is afebrile without an elevated WBC count. Chest x-ray shows findings of pulmonary edema however cannot rule out infiltrate. She could have cardiogenic for obstructive shock and though and echocardiogram done about a month ago showed a normal systolic function, she could be suffering from right-sided heart failure (right ventricle and atria appear enlarged on bedside ultrasound) as it is possible that she has a pulmonary embolism given bilateral lower extremity venous Doppler ultrasounds which were discovered this evening. Hypovolemia is also a possibility as she has an acute on chronic kidney injury with hyponatremia though on exam she appears more volume overloaded. Conversely, the renal failure could be pre renal related to poor cardiac output. In any event, central line has been inserted and she is currently on norepinephrine. Start empiric antibiotics for possible developing pneumonia. Urinalysis has been ordered and is pending. Blood cultures have already been obtained. She is unable to go for PE study as she cannot have contrast with her acute kidney injury. Echocardiogram has been ordered for a.m.. 2. Bilateral lower extremity deep venous thrombosis: She has been started on a heparin drip. Their concerns for pulmonary embolism as detailed above. 3. Acute on chronic respiratory failure hypoxia hypercapnia: She was briefly on Vapotherm but her pCO2 did not improved significantly and with her decline in mentation, she was intubated. Currently on a tidal volume of 320 with a PEEP of 5, rate of 20, and an FiO2 of 50%. 4. Garbled speech: Could be related to shock and hypoxia/hypercapnia. Concerns for possible watershed infarctions and a stat brain CT has been ordered. Ultimately she will need an MRI but would need to be transferred for that as she is currently on the ventilator. 5. Transaminitis: Likely due to shock liver. Her abdominal exam was benign however given concerns for possible infection, right upper quadrant ultrasound has been ordered. 6. Non STEMI. Troponins are elevated but have remained flat and likely these are elevated in the setting of shock, rapid atrial fibrillation, and possible PE. Echo pending and cardiology consulted. 7. Atrial fibrillation with rapid ventricular response: She has been started on amiodarone drip and is currently on a heparin drip as above. Critical Care Time Critical Care Time: Yes Total Critical Care Time: 75 Attestation: Due to a high probability of clinically significant, life threatening deterioration, the patient required my highest level of preparedness to intervene emergently and I personally spent this critical care time directly and personally managing the patient. This critical care time included obtaining a history; examining the patient; pulse oximetry; ordering and review of studies; arranging urgent treatment with development of a management plan; evaluation of patient's response to treatment; frequent reassessment; and discussions with other providers. It was exclusive of separately billable procedures and treating other patients and teaching time. Please see Assessment and Plan section and the rest of the note for further information on patient assessment and treatment.
--- NOTE | 2024-07-25 18:28 | P.PCNBED_ITS ---
Procedures Central Line Placement Left Femoral: Consent: I have discussed with the patient and/or surrogate, the non-emergent placement of a central venous catheter, including its clinical necessity/indication and associated potential risks and complications. The patient and/or surrogate unde rstand(s) and acknowledge(s) the need to proceed with central venous catheter insertion as an important element of the patient's clinical management. Time Out Performed: Yes Patient Position: supine Patient placed on monitor/pulse ox: Yes Provider Prep: mask, sterile gown, sterile gloves, Max. sterile barrier precautions, cap and hand hygiene with conventional soap/water or alcohol based hand rub Central line prep: 2% Chlorhexidine scrub and sterile full body sheet applied Local anesthesia used: lidocaine 1% Amount of anesthesia used (ml): 5 Sterile US Technique with sterile gel/sterile probe covers: Yes Central line lumen inserted: triple Lebanese: 7 Length (cm): 20 Post Procedure: sutured in place, good blood return, all ports aspirated, flushed, capped, transparent dressing, securement product and aseptic technique maintained throughout procedure Post procedure x-ray: other (n/a with femoral placement) Additional comments: Gaining access was somewhat challenging due to the patient's body habitus and depth of the vessel.
[2024-07-25 18:50] LABS: Basophils Percent Auto 0.2 % (0.2-1.2); Eosinophils Absolute Auto 0.2 K/mm3 (0-0.3); Eosinophils Percent Auto 2.4 % (0-4.4); Hematocrit 41.6 % (37.0-47.0); Hemoglobin 12.8 g/dL (12.0-15.0); Immature Granulocyte Absolute 0.04 K/mm3 (0.00-0.031); Immature Granulocyte Percent A 0.4 % (0-0.5); Lymphocytes Absolute Auto 1.61 K/mm3 (0.9-3.2); Lymphocytes Percent Auto 17.6 % (18.3-44.2); Mean Corpuscular HGB Conc 30.8 g/dl (32-36); Mean Corpuscular Hemoglobin 29.7 pg (26-34); Mean Corpuscular Volume 96.5 fl (80-100); Mean Platelet Volume 11.2 fl (7.4-10.4); Monocytes Percent Auto 10.5 % (2.6-8.5); Neutrophils Absolute Auto 6.3 K/mm3 (1.3-6.7); Neutrophils Percent Auto 68.9 % (45.5-73.1); Platelet Count Result 183 k/mm3 (150-375); Red Blood Count 4.31 M/mm3 (4.2-5.4); Red Cell Distribution Width 16.4 % (11.5-14.5); White Blood Count 9.2 K/mm3 (4.5-10.0)
[2024-07-25 19:04] LABS: INR 1.2; Prothrombin Time 15.9 Seconds (11.1-14.7)
[2024-07-25 19:05] LABS: Partial Thromboplastin Time 26.3 Seconds (22.3-36.8)
[2024-07-25 19:08] LABS: Anion Gap 10 mmol/L (4-12); Blood Urea Nitrogen 50 mg/dL (7-17); Calcium 10.3 mg/dL (8.4-10.2); Carbon Dioxide 30 mmol/L (22-30); Chloride 88 mmol/L (98-107); Estimated CRCL calculation 17 ml/min; Estimated Glomerular Filt Rate 16; Glucose 137 mg/dL (65-110); Potassium 4.7 mmol/L (3.4-5.0); Sodium 128 mmol/L (137-145)
[2024-07-25 19:17] LABS: Reflex Lactic Acid Yes or No Add Lactic
[2024-07-25] MEDS: HEPARIN SOD/D5W 100 UNITS/ML 25,000 UNITS/250 ML BAG 14 UNITS IV CONT (19:32)
[2024-07-25 19:40] LABS: Alveolar/Arterial O2 Gradient 144.4 mmHg; Base Excess ABG 4.3 mEq/l (+/-2.0); Fractional Inspired Oxygen 40 %; HCO3 ABG 31.9 mEq/l (22.0-26.0); Methemoglobin ABG 0.3 %THb (0-1.5); Oxygen Content ABG 17.7 %vol (16.0-22.0); Oxygen Saturation ABG 92.5 % (95.0-100.0); Oxyhemoglobin 91.8 % THb (90.0-100.0); PCO2 ABG 61.7 mmHg (35.0-45.0); PO2 ABG 69.8 mmHg (80.0-100.0); PO2 FiO2 Ratio Arterial Blood 1.75 %; Reduced Hemoglobin 6.9 %THb (0-5.0); Total Hemoglobin 13.7 g/dL (12.0-18.0); pH ABG 7.332 (7.350-7.450)
[2024-07-25 19:41] LABS: Device HIGH FLOW THERAPY; Site Drawn RIGHT BRACHIAL
[2024-07-25 20:21] LABS: MRSA (PCR) DETECTED (NOT DETECTE)
[2024-07-25] MEDS: MIDAZOLAM 100MG/NS 100ML(*CRX) 100 MG/100 ML BAG IV CONT (20:27)
[2024-07-25] MEDS: FENTANYL 2,500MCG/NS250ML(*CRX 2,500 MCG/250 ML BAG IV CONT (20:28)
--- NOTE | 2024-07-25 20:34 | WPDPROCEDUR ---
Procedures Intubation Intubation Date: 07/25/24 Intubation Time: 20:30 Consent: Patient gave verbal consent earlier today when she was alert and oriented. A pre-procedural Time-Out was completed immediately before starting the procedure and confirmed: Patient Identification, Site, Procedure, Patient Position and the Availability of Requisite Equipment: Yes Sedative: etomidate Mg given: 20 Paralytic: succinylcholine Mg given: 100 Laryngoscope: Ant Assist device used: fiber optic device ET tube size: 7.5 Tube secured depth (cm): 25 Tube secured location: lips Tube placement confirmation: visualized tube passing through cords, equal breath sounds bilaterally, no breath sounds over epigastrium and confirmation by capnometry Patient tolerated procedure: well Intubation complications: none Additional comments: The patient had increasing oxygen requirements and altered mental status, now with garbled speech. She was placed on Vapotherm but repeat blood gas did not show any significant improvement and due to her altered mental status, the decision was made to intubate the patient after discussing the case in full with the carpet journeyman, Dr. Vogt. She was preoxygenated. Etomidate and succinylcholine were given for RSI. She was intubated easily, atraumatically, and on 1st attempt using mac 4 glide scope. A 7.5 ET tube was seen passing through the vocal cords with mist in the tube and positive colorimetric change as well as lung sounds auscultated bilaterally. She was hemodynamically stable throughout with an SpO2 above 95% the entire time. Chest x-ray is pending.
[2024-07-25] MEDS: RAPID SEQUENCE INTUBATION KIT 1 EACH (20:43)
[2024-07-25] MEDS: MIDAZOLAM HCL (*CRX) 2 MG/2 ML VIAL IV PUSH (20:46)
[2024-07-25 22:00] LABS: Troponin I 0.389 ng/mL (0.000-0.034)
[2024-07-25 22:26] LABS: Base Excess ABG 4.7 mEq/l (+/-2.0); Carboxyhemoglobin 0.9 % THb (0-2.0); Device VENTILATOR; Fractional Inspired Oxygen 50 %; HCO3 ABG 31.4 mEq/l (22.0-26.0); Methemoglobin ABG 0.2 %THb (0-1.5); Oxygen Content ABG 18.3 %vol (16.0-22.0); Oxygen Saturation ABG 98.2 % (95.0-100.0); Oxyhemoglobin 97.5 % THb (90.0-100.0); PCO2 ABG 55.9 mmHg (35.0-45.0); PO2 ABG 121.6 mmHg (80.0-100.0); PO2 FiO2 Ratio Arterial Blood 2.43 %; Reduced Hemoglobin 1.4 %THb (0-5.0); Site Drawn RIGHT BRACHIAL; Total Hemoglobin 13.2 g/dL (12.0-18.0); pH ABG 7.368 (7.350-7.450)
[2024-07-25 22:27] LABS: Arterial Blood Gas PEEP 5 cmH2O; Arterial Blood Gas Tidal Volume 320 ml; Arterial Blood Gas Vent Mode CMV; Arterial Blood Gas Ventilator rate 20 /MIN
[2024-07-25] MEDS: METOPROLOL TARTRATE 25 MG TABLET PO (23:10)
[2024-07-25] MEDS: MINERAL OIL/WHITE PETROLATUM OINTMENT 1 APPLIC EACH EYE (23:11)
[2024-07-25] MEDS: MUPIROCIN 2% OINT 22 GM TUBE 1 APPLIC EACH NARE (23:11)
[2024-07-25] MEDS: CENTRAL LINE FLUSH 10 ML IV PUSH (23:11)
[2024-07-26] VITALS (57 sets, daily range): BP systolic 84–125; BP diastolic 49–91; PULSE 17–141; RESP 20–24; TEMP 36.1–36.7; O2SAT 92–100; BMI 51.2
--- NOTE | 2024-07-26 | ECHOL_ITS ---
Patient Info Name: Klaudia Larry Age: 84 years : 1940 Gender: Female Ht: 62 in Wt: 280 lbs BSA: 2.44 m2 HR: 124 bpm BP: 102 / 76 mmHg Heart Rhythm: Tachycardia Technical Quality: Good Exam Date: 07/26/2024 10:12 AM Exam Location: Echo Lab Exam Room: ICU 10 Patient Status: Inpatient Admit Date: 07/25/2024 Staff Ordering Physician: Terrence Mcdonnell MD Pipe Stem Aligner: Whit Kidd RDCS Attending Provider: Terrence Mcdonnell MD Referring Physician: Kecia MORROW; Exam Type: CA echo limited Study Info Indications - Eval right heart strain, R/O pulm embolism Limited two-dimensional transthoracic echocardiogram is performed. Summary 1. Technically difficult study with limited views. 2. Left ventricular chamber dimension is normal. 3. Left ventricular systolic function is normal, estimated at 55-60%. 4. Right ventricular chamber dimension is severely enlarged. 5. Right ventricular systolic function is reduced. 6. Left atrial chamber dimension is moderately enlarged. 7. Right atrial chamber dimension is severely enlarged. 8. There is mild mitral valve regurgitation. 9. There is moderate tricuspid valve regurgitation. 10. Left pleural effusion present. Left Ventricle Left ventricular chamber dimension is normal. Left ventricular systolic function is normal, estimated at 55-60%. Right Ventricle Right ventricular chamber dimension is severely enlarged. Right ventricular systolic function is reduced. Left Atria Left atrial chamber dimension is moderately enlarged. Right Atria Right atrial chamber dimension is severely enlarged. Atrial Septum Intact interatrial septum visualized by color flow imaging. Aortic Valve The aortic valve is trileaflet. There is no aortic valve stenosis. There is no aortic valve regurgitation. There is mild aortic valve calcification. Pulmonic Valve The pulmonic valve is not well visualized. There is trace pulmonic regurgitation. Mitral Valve There is mild mitral valve regurgitation. The mitral valve annulus is moderately calcified. Tricuspid Valve There is moderate tricuspid valve regurgitation. Pericardium/Pleural Left pleural effusion present. There is no pericardial effusion. Inferior Vena Cava Inferior vena cava is not well visualized. Aorta The aortic root size at the sinus of Valsalva is normal. Pulmonic Valve Name Value Normal PV Regurgitation Doppler VT Peak End Diastolic Velocity 151 cm/s Tricuspid Valve Name Value Normal TV Regurgitation Doppler TR Peak Velocity 385 cm/s TR Peak Gradient 59 mmHg Atria Name Value Normal RA Dimensions RA Area (4C) 24.4 cm2 <=18.0 Report Signatures
[2024-07-26 00:10] LABS: Urea Random Urine 427 MG/DL
[2024-07-26 00:18] LABS: Add Urine Microscopic? YES; Appearance Urine Cloudy (Clear); Bacteria Urine 1+ /hpf; Bilirubin Urine Negative (Negative); Blood Urine 2+ (Negative); Color Urine Yellow (Yellow); Glucose Urine UA Negative (Negative); Ketones Urine Negative (Negative); Leukocyte Esterase Ur 3+ LEU/UL (Negative); Need Manual Microscopic Reviewed; Nitrate Urine Negative (Negative); Non Pathogenic Casts >20; Protein Urine Trace mg/dL (Negative); RBC Urine 0-2 /hpf (0-2); Specific Grav Ur 1.015 (1.001-1.035); Squamous Epithelial Cell Urine None Seen /hpf (Few); Urobilinogen Urine 0.2 mg/dL (<2.0); WBC Urine >100 /hpf (0-3)
[2024-07-26] MEDS: DOXYCYCLINE 100 MG/NS 100 ML 100 MG/100 ML BAG IVPB ×3 (00:21→23:08)
[2024-07-26] MEDS: AMIODARONE 360 MG/D5W 200 ML 360 MG/200 ML BAG 16.67 MG IV CONT (00:41)
[2024-07-26 02:15] LABS: Partial Thromboplastin Time 156.5 Seconds (22.3-36.8)
[2024-07-26] MEDS: VANCOMYCIN 1,750 MG/NS 500 ML 1,750 MG/500 ML BAG 250 MG IVPB (02:31)
[2024-07-26] MEDS: CEFEPIME 2 GM/NS 50 ML 2 GM/50 ML BAG IVPB (02:31)
[2024-07-26 05:13] LABS: Alveolar/Arterial O2 Gradient 66.7 mmHg; Base Excess ABG 4.5 mEq/l (+/-2.0); Fractional Inspired Oxygen 30 %; HCO3 ABG 30.5 mEq/l (22.0-26.0); Oxygen Content ABG 18.5 %vol (16.0-22.0); Oxygen Saturation ABG 96.4 % (95.0-100.0); Oxyhemoglobin 95.9 % THb (90.0-100.0); PCO2 ABG 51.2 mmHg (35.0-45.0); Total Hemoglobin 13.7 g/dL (12.0-18.0); pH ABG 7.393 (7.350-7.450)
[2024-07-26 05:16] LABS: Site Drawn RIGHT RADIAL
[2024-07-26 05:17] LABS: Arterial Blood Gas PEEP 5 cmH2O; Arterial Blood Gas Tidal Volume 320 ml; Arterial Blood Gas Vent Mode CMV; Arterial Blood Gas Ventilator rate 20 /MIN; Device VENTILATOR; Modified Allen's Test Pass
[2024-07-26 05:39] LABS: Basophils Absolute Auto 0.1 K/mm3 (0.0-0.1); Basophils Percent Auto 0.6 % (0.2-1.2); Eosinophils Absolute Auto 0.4 K/mm3 (0-0.3); Eosinophils Percent Auto 4.4 % (0-4.4); Hematocrit 40.4 % (37.0-47.0); Hemoglobin 12.7 g/dL (12.0-15.0); Immature Granulocyte Absolute 0.02 K/mm3 (0.00-0.031); Immature Granulocyte Percent A 0.2 % (0-0.5); Lymphocytes Absolute Auto 2.09 K/mm3 (0.9-3.2); Lymphocytes Percent Auto 24.1 % (18.3-44.2); Mean Corpuscular HGB Conc 31.4 g/dl (32-36); Mean Corpuscular Hemoglobin 29.7 pg (26-34); Mean Corpuscular Volume 94.6 fl (80-100); Mean Platelet Volume 11.3 fl (7.4-10.4); Monocytes Absolute Auto 0.7 K/mm3 (0.1-0.6); Monocytes Percent Auto 7.8 % (2.6-8.5); Neutrophils Absolute Auto 5.5 K/mm3 (1.3-6.7); Neutrophils Percent Auto 62.9 % (45.5-73.1); Platelet Count Result 160 k/mm3 (150-375); Red Blood Count 4.27 M/mm3 (4.2-5.4); Red Cell Distribution Width 16.4 % (11.5-14.5); White Blood Count 8.7 K/mm3 (4.5-10.0)
[2024-07-26 05:56] LABS: INR 1.2; Prothrombin Time 15.8 Seconds (11.1-14.7)
[2024-07-26 05:59] LABS: Alanine Aminotransferase 176 U/L (6-35); Albumin Level 3.6 g/dL (3.5-5.1); Alkaline Phosphatase 83 U/L (38-126); Anion Gap 6 mmol/L (4-12); Aspartate Amino Transferase 193 U/L (14-36); Bilirubin,Total 0.8 mg/dL (0.2-1.3); Blood Urea Nitrogen 47 mg/dL (7-17); CRP 1.9 mg/dL (<1.0); Carbon Dioxide 32 mmol/L (22-30); Chloride 90 mmol/L (98-107); Creatine Kinase 130 U/L (30-135); Estimated CRCL calculation 20 ml/min; Estimated Glomerular Filt Rate 19; Glucose 117 mg/dL (65-110); Magnesium 2.1 mg/dL (1.6-2.3); Phosphorus 3.1 mg/dL (2.5-4.5); Potassium 4.3 mmol/L (3.4-5.0); Sodium 128 mmol/L (137-145)
[2024-07-26 06:10] LABS: Total Protein Urine Random 16 mg/dL
[2024-07-26] MEDS: CENTRAL LINE FLUSH 10 ML IV PUSH ×3 (06:20→22:35)
--- NOTE | 2024-07-26 08:41 | PCPTNOTE ---
discussed pt with RN--cancel PT and OT orders due to decline in status, now intubated.
[2024-07-26 08:59] LABS: Partial Thromboplastin Time 158.5 Seconds (22.3-36.8)
[2024-07-26] MEDS: SODIUM CHLORIDE 0.9% IV 1,000 ML 100 ML IV CONT (09:09)
[2024-07-26] MEDS: MINERAL OIL/WHITE PETROLATUM OINTMENT 1 APPLIC EACH EYE ×2 (09:15→19:54)
[2024-07-26] MEDS: MUPIROCIN 2% OINT 22 GM TUBE 1 APPLIC EACH NARE ×2 (09:15→19:54)
--- NOTE | 2024-07-26 09:47 | PM.CNNEP ---
History of Present Illness Reason for Consult Consult date: 07/26/24 Reason for consult: acute renal failure (on chronic kidney disease) Chief Complaint Chief complaint: CHF exacerbation, venous congestion related KEESHA, Review of Systems Review of Systems: As per HPI. [facility] Past Medical History Medical History Spondylosis with myelopathy, lumbar region Schatzki's ring Pre-diabetes Opioid dependence with current use Obesity hypoventilation syndrome Morbid obesity due to excess calories Keratolysis exfoliativa Esophageal web Anxiety Chronic kidney disease, stage 3a Diffuse idiopathic skeletal hyperostosis Allergic sinusitis Chronic low back pain Generalized anxiety disorder Gastro-esophageal reflux disease without esophagitis Body mass index (BMI) 40.0-44.9, adult Peripheral vascular disease, unspecified History of tobacco use Surgical History Surgical History History of esophageal dilatation History of meniscectomy of right knee History of vertebroplasty History of colonoscopy with polypectomy Family History Family History Mother Asthma Patient's mother is in good health Sibling Patient's sister is in good health Patient's brother is in good health Other Family history of arthritis Social History Social History Social History: Surrogate medical decision maker: Mami Burns, daughter. Code status: Full code. Smoking packs per day: 2 Smoking cigarettes per day: 40.0 Years smoked: 10 Smoking pack-years: 20.00 Smoking status: Former smoker Tobacco type: cigarettes Second hand tobacco smoke exposure: No Alcohol intake: never Substance use: never Substance use type: does not use Do You Feel Safe in your Home?: Yes Lack of Transportation: YES Lack of Food: Never True Current Housing: I Have Housing Concerned About Future Housing: No Difficulty Paying Gas/Electric Bills: No Difficulty Paying for Meds: No Currently Unemployed: No Education: High School Diploma/GED Difficulty w/ Childcare or Family Care: No Living arrangements: with family Occupation/Education: retired Spiritual care concerns: No Agree to blood products: Yes Meds Home Medications and Allergies Home Medications ?Medication ?Instructions ?Recorded ?Confirmed ?Type loratadine 10 mg capsule 10 mg PO DAILY #100 caps 02/24/24 07/25/24 Rx omeprazole 40 mg capsule,delayed 40 mg PO DAILY 04/30/24 07/25/24 History release atorvastatin 10 mg tablet 10 mg PO DAILY #90 tabs 05/30/24 07/25/24 Rx clonazepam 0.5 mg tablet 0.5 mg PO DAILY PRN panic 06/14/24 07/25/24 Rx attack(s) #30 tabs tramadol 50 mg tablet 50 mg PO DAILY #30 tabs 06/14/24 07/25/24 Rx furosemide 20 mg tablet (Lasix) 20 mg PO DAILY #30 tabs 06/21/24 07/25/24 Rx potassium chloride 10 mEq 10 meq PO DAILY PRN when taking 06/21/24 07/25/24 Rx tablet,extended release (Klor-Con) furosemide 20mg #30 tabs apixaban 5 mg tablet (Eliquis) 5 mg PO Q12H 07/25/24 07/25/24 History metoprolol tartrate 25 mg tablet 25 mg PO BID 07/25/24 07/25/24 History Allergies Allergy/AdvReac Type Severity Reaction Status Date / Time pravastatin Allergy Unknown unknown Verified 07/25/24 13:27 alendronate sodium AdvReac Unknown gastritis Verified 07/25/24 13:27 Vital Signs Vital Signs Temp Pulse Resp BP Pulse Ox O2 Del Method O2 Flow Rate 07/26/24 09:07 120 H 98 Mechanical Ventilation 07/26/24 09:00 127 H 20 07/26/24 09:00 128 H 114/78 07/26/24 09:00 128 H 20 07/26/24 08:00 97.8 F 123 H 20 102/70 98 07/26/24 08:00 07/26/24 08:00 123 H 07/26/24 08:00 120 H 20 98 Mechanical Ventilation 07/26/24 07:57 124 H 20 07/26/24 07:56 124 H 102/76 07/26/24 07:00 124 H 20 07/26/24 06:00 97.4 F L 121 H 20 105/71 98 07/26/24 06:00 121 H 07/26/24 05:51 133 H 98 Mechanical Ventilation 07/26/24 05:46 97.3 F L 128 H 20 125/91 H 99 07/26/24 05:46 128 H 125/91 H 02/25/25 05:40 123 H 20 07/26/24 05:40 123 H 20 07/26/24 04:45 97.4 F L 121 H 20 99/62 L 98 07/26/24 04:15 97.4 F L 132 H 20 99/66 L 98 07/26/24 04:00 126 H 07/26/24 04:00 123 H 20 07/26/24 04:00 123 H 20 07/26/24 04:00 123 H 114/71 07/26/24 04:00 97.4 F L 123 H 20 114/71 99 07/26/24 03:50 132 H 20 100 Mechanical Ventilation 07/26/24 03:46 122 H 85/54 L 07/26/24 03:45 97.5 F L 120 H 20 85/54 L 100 07/26/24 03:43 07/26/24 02:02 127 H 100 Mechanical Ventilation 07/26/24 02:00 110 H 20 07/26/24 02:00 110 H 95/59 L 07/26/24 02:00 110 H 20 07/26/24 02:00 110 H 07/26/24 02:00 97.6 F 110 H 20 95/59 L 100 07/26/24 01:45 97.5 F L 113 H 20 101/67 100 07/26/24 01:30 97.5 F L 108 H 20 89/66 L 100 07/26/24 01:15 97.4 F L 108 H 20 84/51 L 100 07/26/24 01:15 108 H 84/57 L 07/26/24 00:41 113 H 93/62 L 07/26/24 00:32 113 H 20 07/26/24 00:00 120 H 07/26/24 00:00 07/26/24 00:00 126 H 20 100 Mechanical Ventilation 07/26/24 00:00 126 H 20 07/26/24 00:00 126 H 95/68 L 07/26/24 00:00 126 H 20 07/26/24 00:00 97 F L 121 H 20 95/68 L 100 07/25/24 23:11 134 H 100 Mechanical Ventilation 07/25/24 23:10 138 H 07/25/24 22:28 138 H 119/63 07/25/24 22:00 136 H 07/25/24 22:00 136 H 20 07/25/24 22:00 126 H 20 07/25/24 22:00 97.7 F 129 H 20 116/76 100 07/25/24 21:45 97.8 F 133 H 20 106/65 100 07/25/24 21:40 144 H 24 H 07/25/24 21:31 139 H 20 07/25/24 21:30 139 H 126/85 07/25/24 21:30 97.8 F 141 H 20 126/85 100 07/25/24 21:16 139 H 126/67 07/25/24 21:15 139 H 20 07/25/24 21:15 97.9 F 137 H 20 126/67 100 07/25/24 21:05 138 H 124/80 07/25/24 21:00 149 H 26 H 07/25/24 21:00 97.9 F 139 H 20 127/80 100 07/25/24 20:45 97.9 F 142 H 24 H 117/91 H 100 07/25/24 20:45 142 H 30 H 07/25/24 20:45 142 H 30 H 07/25/24 20:30 138 H 26 H 100 Mechanical Ventilation 07/25/24 20:30 142 H 102/34 L 07/25/24 20:28 142 H 21 H 07/25/24 20:27 147 H 20 07/25/24 20:20 140 H 100 Mechanical Ventilation 07/25/24 20:00 140 H 07/25/24 20:00 97.8 F 140 H 34 H 124/80 100 07/25/24 18:20 96 High Flow Therapy with Na 30 07/25/24 18:15 98.3 F 128 H 20 93/62 L 90 07/25/24 18:10 153 H 97/83 L 07/25/24 18:10 153 H 97/83 L 07/25/24 18:00 151 H 07/25/24 18:00 98.3 F 151 H 25 H 105/62 90 07/25/24 17:45 98.4 F 133 H 16 86/46 L 90 07/25/24 17:30 98.5 F 145 H 24 H 116/68 95 07/25/24 17:15 98.6 F 131 H 20 100/68 96 07/25/24 17:10 98.6 F 107 H 20 81/51 L 98 07/25/24 17:00 98.6 F 112 H 20 68/43 L 95 07/25/24 17:00 110 H 68/43 L 07/25/24 16:45 98.6 F 107 H 26 H 69/55 L 97 07/25/24 16:30 98.6 F 110 H 21 H 73/48 L 96 07/25/24 16:30 92 Nasal Cannula 3 07/25/24 16:15 98.4 F 111 H 21 H 72/45 L 97 07/25/24 16:00 96 High Flow Nasal Cannula 3 07/25/24 16:00 103 H 07/25/24 16:00 98.5 F 103 H 21 H 70/47 L 96 07/25/24 14:00 112 H 07/25/24 13:24 93 High Flow Nasal Cannula 3 07/25/24 13:19 98.0 F 116 H 26 H 120/93 H 96 Results Lab Results 07/26/24 05:26 07/26/24 05:26 Lab results: Most recent lab results ABG pH 7.393 (7.350-7.450) 07/26/24 05:10 ABG pCO2 51.2 mmHg (35.0-45.0) H 07/26/24 05:10 ABG pO2 87.0 mmHg (80.0-100.0) 07/26/24 05:10 ABG HCO3 30.5 mEq/l (22.0-26.0) H 07/26/24 05:10 ABG O2 Saturation 96.4 % (95.0-100.0) 07/26/24 05:10 Calcium 10.0 mg/dL (8.4-10.2) 07/26/24 05:26 Phosphorus 3.1 mg/dL (2.5-4.5) 07/26/24 05:26 Magnesium 2.1 mg/dL (1.6-2.3) 07/26/24 05:26 Urine Creatinine 202.4 mg/dL 07/25/24 16:14
[2024-07-26] MEDS: AMIODARONE 360 MG/D5W 200 ML 360 MG/200 ML BAG 33.33 MG IV CONT ×3 (11:58→23:09)
[2024-07-26] MEDS: AMIODARONE 360 MG/D5W 200 ML 360 MG/200 ML BAG 33.3 MG (12:00)
--- NOTE | 2024-07-26 12:04 | P.CONIN_ITS ---
Assessment and Plan Assessment and plan (1) Acute hypoxic respiratory failure: Code(s): J96.01 - Acute respiratory failure with hypoxia Status: Acute Assessment and Plan: Acute hypoxic and hypercapnic respiratory failure requiring intubation on 07/25/2024 -etiology can be multifactorial, CHF, pneumonia, PE (patient does patient does have extensive DVTs bilaterally on venous Dopplers done on 07/25/2024). Unable to obtain CTA due to acute on chronic kidney disease -could be PE as echocardiogram shows right ventricular chamber dimension is severely enlarged. Discussed with test and research reactor operator to read the echocardiogram, states it could be PE too given her signs and symptoms. -continue CMV mode of ventilation, peep of 5, 30% FiO2 -started patient on bronchodilators -chest x-ray and ABGs reviewed, ventilator adjusted -sedated with fentanyl and Versed infusion, maintain RASS of 0 to -2, daily SBT and SAT 07/26/2024: Echocardiogram Summary 1. Technically difficult study with limited views. 2. Left ventricular chamber dimension is normal. 3. Left ventricular systolic function is normal, estimated at 55-60%. 4. Right ventricular chamber dimension is severely enlarged. 5. Right ventricular systolic function is reduced. 6. Left atrial chamber dimension is moderately enlarged. 7. Right atrial chamber dimension is severely enlarged. 8. There is mild mitral valve regurgitation. 9. There is moderate tricuspid valve regurgitation. 10. Left pleural effusion present. (2) Shock: Code(s): R57.9 - Shock, unspecified Status: Acute Assessment and Plan: Patient was hypotensive upon arrival to the ICU, she was given Lasix 80 mg IV x1 in the ER with no response -patient was given 500 mL IV fluid bolus and albumin -07/25: Central line was inserted and patient was started on Levophed , maintain MAP > 65 mmHg -07/25: Urine cultures have been obtained and pending -07/25: Blood cultures have been obtained and pending -started patient on cefepime, doxycycline and vancomycin (07/25) -monitor for urine output (3) Atrial fibrillation with rapid ventricular response: Code(s): I48.91 - Unspecified atrial fibrillation Status: Acute Assessment and Plan: Patient went to AFib RVR, could be related to PE -currently on heparin infusion -amiodarone infusion at 1 mg/min -cardiology has been consulted (4) Acute on chronic kidney failure: Code(s): N17.9 - Acute kidney failure, unspecified; N18.9 - Chronic kidney disease, unspecified Status: Acute Assessment and Plan: Acute on chronic kidney disease stage III -patient was hypotensive with systolics in the 60s and 70s -she does take Lasix, metoprolol at home -BNP was greater than 30,000, received Lasix 80 mg IV x1 in the ER with not much response -nephrology has been consulted, appreciate their evaluation and recommendations -will give IV fluids 100 mL/hour for a total of 1000 mL -renal ultrasound has been ordered to rule out obstructive uropathy -continue to monitor urine output, renal function and electrolytes (5) DVT, bilateral lower limbs: Code(s): I82.403 - Acute embolism and thrombosis of unspecified deep veins of lower extremity, bilateral Status: Acute Assessment and Plan: 07/25/2024: Venous Dopplers: Bilateral extensive DVTs -currently on heparin infusion (6) Electrolyte imbalance: Code(s): E87.8 - Other disorders of electrolyte and fluid balance, not elsewhere classified Status: Acute Assessment and Plan: Patient was hyperkalemic, she does take potassium supplements at home -treated in the ICU -potassium has normalized this morning, will continue to monitor Plan DVT prophylaxis: Heparin infusion Stress ulcer prophylaxis: Protonix Nutrition: Will start tube feeds Code Status: Full code Critical Care Time Spent: 53 minutes Discussed with patient's brother and updated him with patient's condition and plan of care. I answered all the questions Due to a high probability of clinically significant, life threatening deterioration, the patient required my highest level of preparedness to intervene emergently and I personally spent this critical care time directly and personally managing the patient. This critical care time included obtaining a history; examining the patient; pulse oximetry; ordering and review of studies; arranging urgent treatment with development of a management plan; evaluation of patient's response to treatment; frequent reassessment; and discussions with other providers. It was exclusive of separately billable procedures and treating other patients and teaching time. Please see Assessment and Plan section and the rest of the note for further information on patient assessment and treatment This dictation may have been done utilizing a voice recognition system. Attempts have been made to correct errors. However, there may be uncorrected grammatical, spelling, and recognitions errors present. Trekking Guide Consult Note Consult date: 07/26/24 Reason for consult: Reason for consult: Acute hypoxic/hypercapnic respiratory failure, shock, bilateral lower extremity DVTs, atrial fibrillation RVR, acute on chronic stage III renal failure HPI: Klaudia Larry is a 84 year old female with past medical history of hypertension, hyperlipidemia, CHF, previous PE on Eliquis, atrial fibrillation, spondylosis, opioid dependence, obesity hypoventilation syndrome, esophageal web, chronic kidney disease stage 3, chronic low back pain, general anxiety disorder, GERD, peripheral vascular disease, presented the ED on 07/25/2024 with complains of fatigue, shortness of breath, dizziness, generalized weakness. She was discharged from the hospital 06/14/2024 for AFib RVR, acute respiratory failure, altered mental status, CHF exacerbation, NSTEMI, acute on chronic kidney disease. This time she has been admitted for almost similar kind of complaints. Patient lives alone and states she is not able to take care of herself and feels like she is going to fall frequently. Denies any chest pain shortness a breath. Has been taking her medications other there has been some confusion on her dose and regimen as noted by her PCP seen her last month. Patient admits to taking her Lasix infrequently but has been compliant with her metoprolol. She also stated that she has declined functionally. She had coarse breath sounds in the ER with 2+ pitting edema. Elevated potassium of 5.2, creatinine of 2.87, BUN 43, sodium 129, CO2 of 31. She was given 80 mg IV Lasix external catheter was placed for BNP of > 30,000, with not much urine output. EKG showed AFib RVR but no signs of acute ST elevations. She was admitted to the IMU, she was hypotensive upon arrival to the ICU. Patient was given 500 mL IV fluid bolus and albumin without much improvement. Patient was more somnolent, central line was inserted and patient started on Levophed. She also had some garbled speech at some point with AFib RVR, patient was hypoxic, repeat ABG showed hypercapnic respiratory failure the patient was intubated. Bilateral lower extremity venous Doppler showed bilateral extensive DVTs. Patient was started on heparin infusion. D- dimer was elevated, given patient's hypotension, shock state, presumed that patient may have added PE, since her creatinine is elevated could not obtain chest CTA . Chest x-ray showed bilateral infiltrates, interstitial pulmonary edema versus atelectasis/consolidation. Patient was started on cefepime, vancomycin and doxycycline. CT scan of the brain did not show any acute intracranial process. Patient seen examined this morning in the ICU, remains intubated on CMV mode of ventilation, peep of 5, 30% FiO2. Sedated with fentanyl and Versed infusion, does not open her eyes or follow simple commands. Patient remains afebrile, urine output has been low. Remains on Levophed at 5 mcg/min. Review of Systems 2 Review of Systems: ROS unobtainable: Yes unobtainable due to endotracheal tube, unobtainable due to medical condition and unobtainable due to mental status PMFSH Past Medical History Medical History Spondylosis with myelopathy, lumbar region Schatzki's ring Pre-diabetes Opioid dependence with current use Obesity hypoventilation syndrome Morbid obesity due to excess calories Keratolysis exfoliativa Esophageal web Anxiety Chronic kidney disease, stage 3a Diffuse idiopathic skeletal hyperostosis Allergic sinusitis Chronic low back pain Generalized anxiety disorder Gastro-esophageal reflux disease without esophagitis Body mass index (BMI) 40.0-44.9, adult Peripheral vascular disease, unspecified History of tobacco use Surgical History Surgical History History of esophageal dilatation History of meniscectomy of right knee History of vertebroplasty History of colonoscopy with polypectomy Family History Family History Mother Asthma Patient's mother is in good health Sibling Patient's sister is in good health Patient's brother is in good health Other Family history of arthritis Social History Social History Social History: Surrogate medical decision maker: Mami Burns, daughter. Code status: Full code. Smoking packs per day: 2 Smoking cigarettes per day: 40.0 Years smoked: 10 Smoking pack-years: 20.00 Smoking status: Former smoker Tobacco type: cigarettes Second hand tobacco smoke exposure: No Alcohol intake: never Substance use: never Substance use type: does not use Do You Feel Safe in your Home?: Yes Lack of Transportation: YES Lack of Food: Never True Current Housing: I Have Housing Concerned About Future Housing: No Difficulty Paying Gas/Electric Bills: No Difficulty Paying for Meds: No Currently Unemployed: No Education: High School Diploma/GED Difficulty w/ Childcare or Family Care: No Living arrangements: with family Occupation/Education: retired Spiritual care concerns: No Agree to blood products: Yes Meds Home Medications and Allergies Home Medications ?Medication ?Instructions ?Recorded ?Confirmed ?Type loratadine 10 mg capsule 10 mg PO DAILY #100 caps 02/24/24 07/25/24 Rx omeprazole 40 mg capsule,delayed 40 mg PO DAILY 04/30/24 07/25/24 History release atorvastatin 10 mg tablet 10 mg PO DAILY #90 tabs 05/30/24 07/25/24 Rx clonazepam 0.5 mg tablet 0.5 mg PO DAILY PRN panic 06/14/24 07/25/24 Rx attack(s) #30 tabs tramadol 50 mg tablet 50 mg PO DAILY #30 tabs 06/14/24 07/25/24 Rx furosemide 20 mg tablet (Lasix) 20 mg PO DAILY #30 tabs 06/21/24 07/25/24 Rx potassium chloride 10 mEq 10 meq PO DAILY PRN when taking 06/21/24 07/25/24 Rx tablet,extended release (Klor-Con) furosemide 20mg #30 tabs apixaban 5 mg tablet (Eliquis) 5 mg PO Q12H 07/25/24 07/25/24 History metoprolol tartrate 25 mg tablet 25 mg PO BID 07/25/24 07/25/24 History Allergies Allergy/AdvReac Type Severity Reaction Status Date / Time pravastatin Allergy Unknown unknown Verified 07/25/24 13:27 alendronate sodium AdvReac Unknown gastritis Verified 07/25/24 13:27 Vital Signs Vital Signs - 24 hr 07/25/24 13:19 07/25/24 13:24 07/25/24 14:00 Temperature 98.0 F Pulse Rate 116 H 112 H Respiratory Rate 26 H Blood Pressure 120/93 H Pulse Oximetry 96 93 Oxygen Delivery High Flow Nasal Cannula Oxygen Flow Rate 3 Fraction of Inspired Oxygen 07/25/24 16:00 07/25/24 16:00 07/25/24 16:00 Temperature 98.5 F Pulse Rate 103 H 103 H Respiratory Rate 21 H Blood Pressure 70/47 L Pulse Oximetry 96 96 Oxygen Delivery High Flow Nasal Cannula Oxygen Flow Rate 3 Fraction of Inspired Oxygen 07/25/24 16:15 07/25/24 16:30 07/25/24 16:30 Temperature 98.4 F 98.6 F Pulse Rate 111 H 110 H Respiratory Rate 21 H 21 H Blood Pressure 72/45 L 73/48 L Pulse Oximetry 97 92 96 Oxygen Delivery Nasal Cannula Oxygen Flow Rate 3 Fraction of Inspired Oxygen 07/25/24 16:45 07/25/24 17:00 07/25/24 17:00 Temperature 98.6 F 98.6 F Pulse Rate 107 H 110 H 112 H Respiratory Rate 26 H 20 Blood Pressure 69/55 L 68/43 L 68/43 L Pulse Oximetry 97 95 Oxygen Delivery Oxygen Flow Rate Fraction of Inspired Oxygen 07/25/24 17:10 07/25/24 17:15 07/25/24 17:30 Temperature 98.6 F 98.6 F 98.5 F Pulse Rate 107 H 131 H 145 H Respiratory Rate 20 20 24 H Blood Pressure 81/51 L 100/68 116/68 Pulse Oximetry 98 96 95 Oxygen Delivery Oxygen Flow Rate Fraction of Inspired Oxygen 07/25/24 17:45 07/25/24 18:00 07/25/24 18:00 Temperature 98.4 F 98.3 F Pulse Rate 133 H 151 H 151 H Respiratory Rate 16 25 H Blood Pressure 86/46 L 105/62 Pulse Oximetry 90 90 Oxygen Delivery Oxygen Flow Rate Fraction of Inspired Oxygen 07/25/24 18:10 07/25/24 18:10 07/25/24 18:15 Temperature 98.3 F Pulse Rate 153 H 153 H 128 H Respiratory Rate 20 Blood Pressure 97/83 L 97/83 L 93/62 L Pulse Oximetry 90 Oxygen Delivery Oxygen Flow Rate Fraction of Inspired Oxygen 07/25/24 18:20 07/25/24 20:00 07/25/24 20:00 Temperature 97.8 F Pulse Rate 140 H 140 H Respiratory Rate 34 H Blood Pressure 124/80 Pulse Oximetry 96 100 Oxygen Delivery High Flow Therapy with Na Oxygen Flow Rate 30 Fraction of Inspired Oxygen 40 07/25/24 20:20 07/25/24 20:27 07/25/24 20:28 Temperature Pulse Rate 140 H 147 H 142 H Respiratory Rate 20 21 H Blood Pressure Pulse Oximetry 100 Oxygen Delivery Mechanical Ventilation Oxygen Flow Rate Fraction of Inspired Oxygen 50 07/25/24 20:30 07/25/24 20:30 07/25/24 20:45 Temperature Pulse Rate 142 H 138 H 142 H Respiratory Rate 26 H 30 H Blood Pressure 102/34 L Pulse Oximetry 100 Oxygen Delivery Mechanical Ventilation Oxygen Flow Rate Fraction of Inspired Oxygen 50 07/25/24 20:45 07/25/24 20:45 07/25/24 21:00 Temperature 97.9 F 97.9 F Pulse Rate 142 H 142 H 139 H Respiratory Rate 30 H 24 H 20 Blood Pressure 117/91 H 127/80 Pulse Oximetry 100 100 Oxygen Delivery Oxygen Flow Rate Fraction of Inspired Oxygen 07/25/24 21:00 07/25/24 21:05 07/25/24 21:15 Temperature 97.9 F Pulse Rate 149 H 138 H 137 H Respiratory Rate 26 H 20 Blood Pressure 124/80 126/67 Pulse Oximetry 100 Oxygen Delivery Oxygen Flow Rate Fraction of Inspired Oxygen 07/25/24 21:15 07/25/24 21:16 07/25/24 21:30 Temperature 97.8 F Pulse Rate 139 H 139 H 141 H Respiratory Rate 20 20 Blood Pressure 126/67 126/85 Pulse Oximetry 100 Oxygen Delivery Oxygen Flow Rate Fraction of Inspired Oxygen 07/25/24 21:30 07/25/24 21:31 07/25/24 21:40 Temperature Pulse Rate 139 H 139 H 144 H Respiratory Rate 20 24 H Blood Pressure 126/85 Pulse Oximetry Oxygen Delivery Oxygen Flow Rate Fraction of Inspired Oxygen 07/25/24 21:45 07/25/24 22:00 07/25/24 22:00 Temperature 97.8 F 97.7 F Pulse Rate 133 H 129 H 126 H Respiratory Rate 20 20 20 Blood Pressure 106/65 116/76 Pulse Oximetry 100 100 Oxygen Delivery Oxygen Flow Rate Fraction of Inspired Oxygen 07/25/24 22:00 07/25/24 22:00 07/25/24 22:28 Temperature Pulse Rate 136 H 136 H 138 H Respiratory Rate 20 Blood Pressure 119/63 Pulse Oximetry Oxygen Delivery Oxygen Flow Rate Fraction of Inspired Oxygen 07/25/24 23:10 07/25/24 23:11 07/26/24 00:00 Temperature 97 F L Pulse Rate 138 H 134 H 121 H Respiratory Rate 20 Blood Pressure 95/68 L Pulse Oximetry 100 100 Oxygen Delivery Mechanical Ventilation Oxygen Flow Rate Fraction of Inspired Oxygen 30 07/26/24 00:00 07/26/24 00:00 07/26/24 00:00 Temperature Pulse Rate 126 H 126 H 126 H Respiratory Rate 20 20 Blood Pressure 95/68 L Pulse Oximetry Oxygen Delivery Oxygen Flow Rate Fraction of Inspired Oxygen 07/26/24 00:00 07/26/24 00:00 07/26/24 00:00 Temperature Pulse Rate 126 H 120 H Respiratory Rate 20 Blood Pressure Pulse Oximetry 100 Oxygen Delivery Mechanical Ventilation Oxygen Flow Rate Fraction of Inspired Oxygen 30 30 07/26/24 00:32 07/26/24 00:41 07/26/24 01:15 Temperature Pulse Rate 113 H 113 H 108 H Respiratory Rate 20 Blood Pressure 93/62 L 84/57 L Pulse Oximetry Oxygen Delivery Oxygen Flow Rate Fraction of Inspired Oxygen 07/26/24 01:15 07/26/24 01:30 07/26/24 01:45 Temperature 97.4 F L 97.5 F L 97.5 F L Pulse Rate 108 H 108 H 113 H Respiratory Rate 20 20 20 Blood Pressure 84/51 L 89/66 L 101/67 Pulse Oximetry 100 100 100 Oxygen Delivery Oxygen Flow Rate Fraction of Inspired Oxygen 07/26/24 02:00 07/26/24 02:00 07/26/24 02:00 Temperature 97.6 F Pulse Rate 110 H 110 H 110 H Respiratory Rate 20 20 Blood Pressure 95/59 L Pulse Oximetry 100 Oxygen Delivery Oxygen Flow Rate Fraction of Inspired Oxygen 07/26/24 02:00 07/26/24 02:00 07/26/24 02:02 Temperature Pulse Rate 110 H 110 H 127 H Respiratory Rate 20 Blood Pressure 95/59 L Pulse Oximetry 100 Oxygen Delivery Mechanical Ventilation Oxygen Flow Rate Fraction of Inspired Oxygen 30 07/26/24 03:43 07/26/24 03:45 07/26/24 03:46 Temperature 97.5 F L Pulse Rate 120 H 122 H Respiratory Rate 20 Blood Pressure 85/54 L 85/54 L Pulse Oximetry 100 Oxygen Delivery Oxygen Flow Rate Fraction of Inspired Oxygen 30 07/26/24 03:50 07/26/24 04:00 07/26/24 04:00 Temperature 97.4 F L Pulse Rate 132 H 123 H 123 H Respiratory Rate 20 20 Blood Pressure 114/71 114/71 Pulse Oximetry 100 99 Oxygen Delivery Mechanical Ventilation Oxygen Flow Rate Fraction of Inspired Oxygen 30 07/26/24 04:00 07/26/24 04:00 07/26/24 04:00 Temperature Pulse Rate 123 H 123 H 126 H Respiratory Rate 20 20 Blood Pressure Pulse Oximetry Oxygen Delivery Oxygen Flow Rate Fraction of Inspired Oxygen 07/26/24 04:15 07/26/24 04:45 07/26/24 05:40 Temperature 97.4 F L 97.4 F L Pulse Rate 132 H 121 H 123 H Respiratory Rate 20 20 20 Blood Pressure 99/66 L 99/62 L Pulse Oximetry 98 98 Oxygen Delivery Oxygen Flow Rate Fraction of Inspired Oxygen 07/26/24 05:40 07/26/24 05:46 07/26/24 05:46 Temperature 97.3 F L Pulse Rate 123 H 128 H 128 H Respiratory Rate 20 20 Blood Pressure 125/91 H 125/91 H Pulse Oximetry 99 Oxygen Delivery Oxygen Flow Rate Fraction of Inspired Oxygen 07/26/24 05:51 07/26/24 06:00 07/26/24 06:00 Temperature 97.4 F L Pulse Rate 133 H 121 H 121 H Respiratory Rate 20 Blood Pressure 105/71 Pulse Oximetry 98 98 Oxygen Delivery Mechanical Ventilation Oxygen Flow Rate Fraction of Inspired Oxygen 30 07/26/24 07:00 07/26/24 07:56 07/26/24 07:57 Temperature Pulse Rate 124 H 124 H 124 H Respiratory Rate 20 20 Blood Pressure 102/76 Pulse Oximetry Oxygen Delivery Oxygen Flow Rate Fraction of Inspired Oxygen 07/26/24 08:00 07/26/24 08:00 07/26/24 08:00 Temperature Pulse Rate 120 H 123 H Respiratory Rate 20 Blood Pressure Pulse Oximetry 98 Oxygen Delivery Mechanical Ventilation Oxygen Flow Rate Fraction of Inspired Oxygen 30 30 07/26/24 08:00 07/26/24 09:00 07/26/24 09:00 Temperature 97.8 F Pulse Rate 123 H 128 H 128 H Respiratory Rate 20 20 Blood Pressure 102/70 114/78 Pulse Oximetry 98 Oxygen Delivery Oxygen Flow Rate Fraction of Inspired Oxygen 07/26/24 09:00 07/26/24 09:07 07/26/24 10:00 Temperature Pulse Rate 127 H 120 H 124 H Respiratory Rate 20 Blood Pressure Pulse Oximetry 98 Oxygen Delivery Mechanical Ventilation Oxygen Flow Rate Fraction of Inspired Oxygen 30 07/26/24 10:00 07/26/24 10:00 07/26/24 10:00 Temperature 97.4 F L Pulse Rate 128 H 123 H 127 H Respiratory Rate 20 20 20 Blood Pressure 107/71 Pulse Oximetry 99 Oxygen Delivery Oxygen Flow Rate Fraction of Inspired Oxygen 07/26/24 10:15 07/26/24 10:57 07/26/24 11:58 Temperature Pulse Rate 132 H 125 H 116 H Respiratory Rate Blood Pressure 103/59 L 103/82 Pulse Oximetry 98 Oxygen Delivery Mechanical Ventilation Oxygen Flow Rate Fraction of Inspired Oxygen 30 Exam 2 Narrative: General: Obese female, intubated, sedated in no acute distress HEENT:? Pupils are equal and reactive, sclera is clear Neck:? Thick neck Respiratory:? Coarse breath sounds bilaterally, decreased at bases, no wheezing, adequate air entry Cardiac:? Irregularly irregular, tachycardia Abdomen:? Soft, non tender, non distended, morbidly obese, hypoactive bowel sounds Extremities:? Bilateral lower extremity edema, palpable pedal pulses Neuro:? Patient is intubated, sedated, does not open her eyes or follow simple commands Skin:? No skin lesions noted Psych:? Unable to assess Results Labs 07/26/24 05:26 07/26/24 05:26 Labs: Short CBC 07/25/24 07/26/24 Range/Units 18:43 05:26 WBC 9.2 8.7 (4.5-10.0) K/mm3 Hgb 12.8 12.7 (12.0-15.0) g/dL Hct 41.6 40.4 (37.0-47.0) % Plt Count 183 160 (150-375) k/mm3 BMP 07/25/24 07/25/24 07/26/24 15:02 18:43 05:26 Sodium 126 L 128 L 128 L Potassium 4.7 4.7 4.3 Chloride 89 L 88 L 90 L Carbon Dioxide 29 30 32 H BUN 49 H 50 H 47 H Creatinine 2.78 H 2.78 H 2.47 H Glucose 84 137 H 117 H Calcium 10.0 10.3 H 10.0 Cardiac Enzymes 07/25/24 07/25/24 07/26/24 Range/Units 16:12 21:25 05:26 Total Creatine Kinase 130 (30-135) U/L Troponin I 0.468 H* 0.389 H* (0.000-0.034) ng/mL Liver Function 07/26/24 Range/Units 05:26 Total Bilirubin 0.8 (0.2-1.3) mg/dL AST 193 H (14-36) U/L ALT 176 H (6-35) U/L Alkaline Phosphatase 83 (38-126) U/L Albumin 3.6 (3.5-5.1) g/dL Urine 07/25/24 07/25/24 Range/Units 16:14 23:57 Urine Color Yellow (Yellow) Urine Appearance Cloudy H (Clear) Urine pH 5.0 (5.0-9.0) Ur Specific Eastern 1.015 (1.001-1.035) Urine Protein Cancelled Trace Urine Glucose (UA) Negative (Negative) mg/dL
[2024-07-26 13:17] LABS: Creatinine Urine 84.3 mg/dL; Total Protein Urine Random 18 mg/dL; Ur Ttl Prot Creatinine Ratio 0.21 mg/mg (0-0.20)
[2024-07-26 14:22] LABS: Eosinophil Urine None Seen % (None Seen); Urine Eos QC 2nd Tech Confirmed
[2024-07-26] MEDS: NOREPINEPHRINE 8 MG/D5W 250 ML 8 MG/250 ML BAG 11.25 MG IV CONT (14:36)
[2024-07-26] MEDS: LEVALBUTEROL NEB 1.25 MG/3 ML 0.63 MG INHALATION ×2 (14:47→20:04)
[2024-07-26] MEDS: IPRATROPIUM BR 0.02% INH SOLN 0.5 MG/2.5 ML VIAL INHALATION ×2 (14:48→20:04)
[2024-07-26] MEDS: FENTANYL 2,500MCG/NS250ML(*CRX 2,500 MCG/250 ML BAG 7.5 MCG IV CONT (15:36)
--- NOTE | 2024-07-26 15:46 | PM.CNCAR ---
Assessment and Plan Assessment and plan (1) Elevated troponin: Code(s): R79.89 - Other specified abnormal findings of blood chemistry Status: Acute (2) Atrial fibrillation with rapid ventricular response: Code(s): I48.91 - Unspecified atrial fibrillation Status: Acute (3) Peripheral vascular disease, unspecified: Code(s): I73.9 - Peripheral vascular disease, unspecified Status: Acute (4) Shock: Code(s): R57.9 - Shock, unspecified Status: Acute (5) Hyperlipidemia: Code(s): E78.5 - Hyperlipidemia, unspecified Status: Acute (6) Acute on chronic heart failure with preserved ejection fraction: Code(s): I50.33 - Acute on chronic diastolic (congestive) heart failure Status: Acute (7) DVT, bilateral lower limbs: Code(s): I82.403 - Acute embolism and thrombosis of unspecified deep veins of lower extremity, bilateral Status: Acute (8) Morbid (severe) obesity due to excess calories: Code(s): E66.01 - Morbid (severe) obesity due to excess calories Status: Acute (9) Acute on chronic kidney failure: Code(s): N17.9 - Acute kidney failure, unspecified; N18.9 - Chronic kidney disease, unspecified Status: Acute (10) 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: Code(s): I12.9 - Hypertensive chronic kidney disease with stage 1 through stage 4 chronic kidney disease, or unspecified chronic kidney disease; N18.30 - Chronic kidney disease, stage 3 unspecified Status: Acute (11) Acute respiratory failure with hypoxia: Code(s): J96.01 - Acute respiratory failure with hypoxia Status: Acute (12) Chronic respiratory failure with hypercapnia: Code(s): J96.12 - Chronic respiratory failure with hypercapnia Status: Acute (13) Bilateral pleural effusion: Code(s): J90 - Pleural effusion, not elsewhere classified Status: Acute Plan Assessment: -Shortness of breath -Acute on chronic heart failure with preserved ejection fraction; BNP more than 30,000 -AFib with RVR -Elevated troponin-0.584, 0.546, 0.543, 0.468, 0.38; unable to assess for chest pain given patient is intubated and sedated; suspect PE in the setting of TTE and enlarged RA, RV with depressed systolic function -Bilateral extensive lower extremity DVTs -Possible PE; TTE shows enlarged right atrium and right ventricle with depressed RV function; unable to perform CT chest with contrast due to KEESHA -Acute hypoxic and hypercapnic respiratory failure status post intubation and sedated -Acute on chronic renal failure -Hypervolemic hyponatremia -Pneumonia on broad-spectrum antibiotic -Shock most likely septic shock due to pneumonia-requiring Levophed Plan: -Given extensive bilateral lower extremity DVTs along with hypotension with SBP less than 90 mm Hg requiring Levophed, enlarged right-sided chambers with depressed RV systolic function, elevated troponin indicating cardiac strain, suspicion for large segmental PE is high. However, unable to perform CT chest with contrast due to acute on chronic renal failure. Alternatively, can do a V/Q scan -Continue heparin drip -Continue Levophed as hypotension was not responsive to IV fluids -Aspirin 81 mg daily -Cardiac catheterization if she recovers from acute illness to evaluate coronaries -EKG in a.m. as unable to assess chest pain symptoms -Hold metoprolol given hypotension. Avoid any blood pressure lowering medications -Agree with amiodarone drip for rate control for AFib -Continue Apixaban for anticoagulation for AFib -Monitor on telemetry -Check and replace electrolytes as needed keeping potassium greater than 4 and magnesium greater than 2 -Though she appears hypervolemic, unable to give diuretics due to hypotension -Management of other medical problems per primary team History of Present Illness History of Present Illness Consult date/time: 07/26/24 15:46 Reason For Visit: CHF exacerbation, venous congestion related KEESHA, Narrative: 84 y/o female patient with past medical history of PVD, tobacco use, obesity hypoventilation syndrome, morbid obesity, chronic kidney disease, GERD, chronic back pain, opioid dependence, esophageal, recent hospitalization in 06/2024 (treated for acute respiratory failure, CHF exacerbation, NSTEMI, AFib with RVR, altered mental status, acute on chronic kidney disease) presented with chief complaints of shortness of breath on 07/25/2024. Accompanying symptoms include dizziness, fatigue, generalized weakness. Patient is intubated and sedated and history is obtained from the medical record. Workup showed KEESHA with a creatinine greater than 2 (baseline creatinine 1.5), elevated troponin, elevated BNP > 30,000, EKG showed AFib RVR, chest x-ray showed bilateral infiltrates, interstitial pulmonary edema versus atelectasis/consolidation, venous Doppler showed extensive bilateral lower extremity DVTs, CT head was negative for any acute pathology. A CT chest with contrast could not be performed to rule out PE due to KEESHA. TTE showed normal LVEF with EF of 55-60%, severely enlarged right ventricle with reduced systolic function, severely enlarged right atrium, moderate tricuspid regurgitation. After admission, patient became hypotensive with no response to IV fluids. She was started on Levophed. She was started on broad-spectrum antibiotics for pneumonia. She became confused last night with garbled speech and and had hypoxia. ABG showed hypercapnic respiratory failure and patient was intubated and sedated. Review of Systems Review of Systems: A complete review of systems could not be performed as patient is intubated and sedated [facility] Past Medical History Medical History Spondylosis with myelopathy, lumbar region Schatzki's ring Pre-diabetes Opioid dependence with current use Obesity hypoventilation syndrome Morbid obesity due to excess calories Keratolysis exfoliativa Esophageal web Anxiety Chronic kidney disease, stage 3a Diffuse idiopathic skeletal hyperostosis Allergic sinusitis Chronic low back pain Generalized anxiety disorder Gastro-esophageal reflux disease without esophagitis Body mass index (BMI) 40.0-44.9, adult Peripheral vascular disease, unspecified History of tobacco use Surgical History Surgical History History of esophageal dilatation History of meniscectomy of right knee History of vertebroplasty History of colonoscopy with polypectomy Family History Family History Mother Asthma Patient's mother is in good health Sibling Patient's sister is in good health Patient's brother is in good health Other Family history of arthritis Social History Social History Social History: Surrogate medical decision maker: Mami Burns, daughter. Code status: Full code. Smoking packs per day: 2 Smoking cigarettes per day: 40.0 Years smoked: 10 Smoking pack-years: 20.00 Smoking status: Former smoker Tobacco type: cigarettes Second hand tobacco smoke exposure: No Alcohol intake: never Substance use: never Substance use type: does not use Do You Feel Safe in your Home?: Yes Lack of Transportation: YES Lack of Food: Never True Current Housing: I Have Housing Concerned About Future Housing: No Difficulty Paying Gas/Electric Bills: No Difficulty Paying for Meds: No Currently Unemployed: No Education: High School Diploma/GED Difficulty w/ Childcare or Family Care: No Living arrangements: with family Occupation/Education: retired Spiritual care concerns: No Agree to blood products: Yes Meds Home Medications and Allergies Home Medications ?Medication ?Instructions ?Recorded ?Confirmed ?Type loratadine 10 mg capsule 10 mg PO DAILY #100 caps 02/24/24 07/25/24 Rx omeprazole 40 mg capsule,delayed 40 mg PO DAILY 04/30/24 07/25/24 History release atorvastatin 10 mg tablet 10 mg PO DAILY #90 tabs 05/30/24 07/25/24 Rx clonazepam 0.5 mg tablet 0.5 mg PO DAILY PRN panic 06/14/24 07/25/24 Rx attack(s) #30 tabs tramadol 50 mg tablet 50 mg PO DAILY #30 tabs 06/14/24 07/25/24 Rx furosemide 20 mg tablet (Lasix) 20 mg PO DAILY #30 tabs 06/21/24 07/25/24 Rx potassium chloride 10 mEq 10 meq PO DAILY PRN when taking 06/21/24 07/25/24 Rx tablet,extended release (Klor-Con) furosemide 20mg #30 tabs apixaban 5 mg tablet (Eliquis) 5 mg PO Q12H 07/25/24 07/25/24 History metoprolol tartrate 25 mg tablet 25 mg PO BID 07/25/24 07/25/24 History Allergies Allergy/AdvReac Type Severity Reaction Status Date / Time pravastatin Allergy Unknown unknown Verified 07/25/24 13:27 alendronate sodium AdvReac Unknown gastritis Verified 07/25/24 13:27 Vital Signs Vital Signs - 24 hr 07/25/24 16:00 07/25/24 16:00 07/25/24 16:00 Temperature 36.9 C Pulse Rate 103 H 103 H Respiratory Rate 21 H Blood Pressure 70/47 L Pulse Oximetry 96 96 Oxygen Delivery High Flow Nasal Cannula Oxygen Flow Rate 3 Fraction of Inspired Oxygen 07/25/24 16:15 07/25/24 16:30 07/25/24 16:30 Temperature 36.9 C 37.0 C Pulse Rate 111 H 110 H Respiratory Rate 21 H 21 H Blood Pressure 72/45 L 73/48 L Pulse Oximetry 97 92 96 Oxygen Delivery Nasal Cannula Oxygen Flow Rate 3 Fraction of Inspired Oxygen 07/25/24 16:45 07/25/24 17:00 07/25/24 17:00 Temperature 37.0 C 37.0 C Pulse Rate 107 H 110 H 112 H Respiratory Rate 26 H 20 Blood Pressure 69/55 L 68/43 L 68/43 L Pulse Oximetry 97 95 Oxygen Delivery Oxygen Flow Rate Fraction of Inspired Oxygen 07/25/24 17:10 07/25/24 17:15 07/25/24 17:30 Temperature 37.0 C 37.0 C 36.9 C Pulse Rate 107 H 131 H 145 H Respiratory Rate 20 20 24 H Blood Pressure 81/51 L 100/68 116/68 Pulse Oximetry 98 96 95 Oxygen Delivery Oxygen Flow Rate Fraction of Inspired Oxygen 07/25/24 17:45 07/25/24 18:00 07/25/24 18:00 Temperature 36.9 C 36.8 C Pulse Rate 133 H 151 H 151 H Respiratory Rate 16 25 H Blood Pressure 86/46 L 105/62 Pulse Oximetry 90 90 Oxygen Delivery Oxygen Flow Rate Fraction of Inspired Oxygen 07/25/24 18:10 07/25/24 18:10 07/25/24 18:15 Temperature 36.8 C Pulse Rate 153 H 153 H 128 H Respiratory Rate 20 Blood Pressure 97/83 L 97/83 L 93/62 L Pulse Oximetry 90 Oxygen Delivery Oxygen Flow Rate Fraction of Inspired Oxygen 07/25/24 18:20 07/25/24 20:00 07/25/24 20:00 Temperature 36.6 C Pulse Rate 140 H 140 H Respiratory Rate 34 H Blood Pressure 124/80 Pulse Oximetry 96 100 Oxygen Delivery High Flow Therapy with Na Oxygen Flow Rate 30 Fraction of Inspired Oxygen 40 07/25/24 20:20 07/25/24 20:27 07/25/24 20:28 Temperature Pulse Rate 140 H 147 H 142 H Respiratory Rate 20 21 H Blood Pressure Pulse Oximetry 100 Oxygen Delivery Mechanical Ventilation Oxygen Flow Rate Fraction of Inspired Oxygen 50 07/25/24 20:30 07/25/24 20:30 07/25/24 20:45 Temperature Pulse Rate 142 H 138 H 142 H Respiratory Rate 26 H 30 H Blood Pressure 102/34 L Pulse Oximetry 100 Oxygen Delivery Mechanical Ventilation Oxygen Flow Rate Fraction of Inspired Oxygen 50 07/25/24 20:45 07/25/24 20:45 07/25/24 21:00 Temperature 36.6 C 36.6 C Pulse Rate 142 H 142 H 139 H Respiratory Rate 30 H 24 H 20 Blood Pressure 117/91 H 127/80 Pulse Oximetry 100 100 Oxygen Delivery Oxygen Flow Rate Fraction of Inspired Oxygen 07/25/24 21:00 07/25/24 21:05 07/25/24 21:15 Temperature 36.6 C Pulse Rate 149 H 138 H 137 H Respiratory Rate 26 H 20 Blood Pressure 124/80 126/67 Pulse Oximetry 100 Oxygen Delivery Oxygen Flow Rate Fraction of Inspired Oxygen 07/25/24 21:15 07/25/24 21:16 07/25/24 21:30 Temperature 36.6 C Pulse Rate 139 H 139 H 141 H Respiratory Rate 20 20 Blood Pressure 126/67 126/85 Pulse Oximetry 100 Oxygen Delivery Oxygen Flow Rate Fraction of Inspired Oxygen 07/25/24 21:30 07/25/24 21:31 07/25/24 21:40 Temperature Pulse Rate 139 H 139 H 144 H Respiratory Rate 20 24 H Blood Pressure 126/85 Pulse Oximetry Oxygen Delivery Oxygen Flow Rate Fraction of Inspired Oxygen 07/25/24 21:45 07/25/24 22:00 07/25/24 22:00 Temperature 36.6 C 36.5 C Pulse Rate 133 H 129 H 126 H Respiratory Rate 20 20 20 Blood Pressure 106/65 116/76 Pulse Oximetry 100 100 Oxygen Delivery Oxygen Flow Rate Fraction of Inspired Oxygen 07/25/24 22:00 07/25/24 22:00 07/25/24 22:28 Temperature Pulse Rate 136 H 136 H 138 H Respiratory Rate 20 Blood Pressure 119/63 Pulse Oximetry Oxygen Delivery Oxygen Flow Rate Fraction of Inspired Oxygen 07/25/24 23:10 07/25/24 23:11 07/26/24 00:00 Temperature 36.1 C L Pulse Rate 138 H 134 H 121 H Respiratory Rate 20 Blood Pressure 95/68 L Pulse Oximetry 100 100 Oxygen Delivery Mechanical Ventilation Oxygen Flow Rate Fraction of Inspired Oxygen 30 07/26/24 00:00 07/26/24 00:00 07/26/24 00:00 Temperature Pulse Rate 126 H 126 H 126 H Respiratory Rate 20 20 Blood Pressure 95/68 L Pulse Oximetry Oxygen Delivery Oxygen Flow Rate Fraction of Inspired Oxygen 07/26/24 00:00 07/26/24 00:00 07/26/24 00:00 Temperature Pulse Rate 126 H 120 H Respiratory Rate 20 Blood Pressure Pulse Oximetry 100 Oxygen Delivery Mechanical Ventilation Oxygen Flow Rate Fraction of Inspired Oxygen 30 30 07/26/24 00:32 07/26/24 00:41 07/26/24 01:15 Temperature Pulse Rate 113 H 113 H 108 H Respiratory Rate 20 Blood Pressure 93/62 L 84/57 L Pulse Oximetry Oxygen Delivery Oxygen Flow Rate Fraction of Inspired Oxygen 07/26/24 01:15 07/26/24 01:30 07/26/24 01:45 Temperature 36.3 C L 36.4 C L 36.4 C L Pulse Rate 108 H 108 H 113 H Respiratory Rate 20 20 20 Blood Pressure 84/51 L 89/66 L 101/67 Pulse Oximetry 100 100 100 Oxygen Delivery Oxygen Flow Rate Fraction of Inspired Oxygen 07/26/24 02:00 07/26/24 02:00 07/26/24 02:00 Temperature 36.4 C Pulse Rate 110 H 110 H 110 H Respiratory Rate 20 20 Blood Pressure 95/59 L Pulse Oximetry 100 Oxygen Delivery Oxygen Flow Rate Fraction of Inspired Oxygen 07/26/24 02:00 07/26/24 02:00 07/26/24 02:02 Temperature Pulse Rate 110 H 110 H 127 H Respiratory Rate 20 Blood Pressure 95/59 L Pulse Oximetry 100 Oxygen Delivery Mechanical Ventilation Oxygen Flow Rate Fraction of Inspired Oxygen 30 07/26/24 03:43 07/26/24 03:45 07/26/24 03:46 Temperature 36.4 C L Pulse Rate 120 H 122 H Respiratory Rate 20 Blood Pressure 85/54 L 85/54 L Pulse Oximetry 100 Oxygen Delivery Oxygen Flow Rate Fraction of Inspired Oxygen 30 07/26/24 03:50 07/26/24 04:00 07/26/24 04:00 Temperature 36.3 C L Pulse Rate 132 H 123 H 123 H Respiratory Rate 20 20 Blood Pressure 114/71 114/71 Pulse Oximetry 100 99 Oxygen Delivery Mechanical Ventilation Oxygen Flow Rate Fraction of Inspired Oxygen 30 07/26/24 04:00 07/26/24 04:00 07/26/24 04:00 Temperature Pulse Rate 123 H 123 H 126 H Respiratory Rate 20 20 Blood Pressure Pulse Oximetry Oxygen Delivery Oxygen Flow Rate Fraction of Inspired Oxygen 07/26/24 04:15 07/26/24 04:45 07/26/24 05:40 Temperature 36.3 C L 36.3 C L Pulse Rate 132 H 121 H 123 H Respiratory Rate 20 20 20 Blood Pressure 99/66 L 99/62 L Pulse Oximetry 98 98 Oxygen Delivery Oxygen Flow Rate Fraction of Inspired Oxygen 07/26/24 05:40 07/26/24 05:46 07/26/24 05:46 Temperature 36.3 C L Pulse Rate 123 H 128 H 128 H Respiratory Rate 20 20 Blood Pressure 125/91 H 125/91 H Pulse Oximetry 99 Oxygen Delivery Oxygen Flow Rate Fraction of Inspired Oxygen 07/26/24 05:51 07/26/24 06:00 07/26/24 06:00 Temperature 36.3 C L Pulse Rate 133 H 121 H 121 H Respiratory Rate 20 Blood Pressure 105/71 Pulse Oximetry 98 98 Oxygen Delivery Mechanical Ventilation Oxygen Flow Rate Fraction of Inspired Oxygen 30 07/26/24 07:00 07/26/24 07:56 07/26/24 07:57 Temperature Pulse Rate 124 H 124 H 124 H Respiratory Rate 20 20 Blood Pressure 102/76 Pulse Oximetry Oxygen Delivery Oxygen Flow Rate Fraction of Inspired Oxygen 07/26/24 08:00 07/26/24 08:00 07/26/24 08:00 Temperature Pulse Rate 120 H 123 H Respiratory Rate 20 Blood Pressure Pulse Oximetry 98 Oxygen Delivery Mechanical Ventilation Oxygen Flow Rate Fraction of Inspired Oxygen 30 30 07/26/24 08:00 07/26/24 09:00 07/26/24 09:00 Temperature 36.6 C Pulse Rate 123 H 128 H 128 H Respiratory Rate 20 20 Blood Pressure 102/70 114/78 Pulse Oximetry 98 Oxygen Delivery Oxygen Flow Rate Fraction of Inspired Oxygen 07/26/24 09:00 07/26/24 09:07 07/26/24 10:00 Temperature Pulse Rate 127 H 120 H 124 H Respiratory Rate 20 Blood Pressure Pulse Oximetry 98 Oxygen Delivery Mechanical Ventilation Oxygen Flow Rate Fraction of Inspired Oxygen 30 07/26/24 10:00 07/26/24 10:00 07/26/24 10:00 Temperature 36.3 C L Pulse Rate 128 H 123 H 127 H Respiratory Rate 20 20 20 Blood Pressure 107/71 Pulse Oximetry 99 Oxygen Delivery Oxygen Flow Rate Fraction of Inspired Oxygen 07/26/24 10:15 07/26/24 10:57 07/26/24 11:58 Temperature Pulse Rate 132 H 125 H 116 H Respiratory Rate Blood Pressure 103/59 L 103/82 Pulse Oximetry 98 Oxygen Delivery Mechanical Ventilation Oxygen Flow Rate Fraction of Inspired Oxygen 30 07/26/24 12:00 07/26/24 12:00 07/26/24 12:00 Temperature Pulse Rate 124 H 124 H 113 H Respiratory Rate 20 Blood Pressure 107/77 107/77 Pulse Oximetry Oxygen Delivery Oxygen Flow Rate Fraction of Inspired Oxygen 07/26/24 12:00 07/26/24 12:00 07/26/24 12:00 Temperature Pulse Rate 17 L 120 H 122 H Respiratory Rate 20 20 Blood Pressure Pulse Oximetry 98 Oxygen Delivery Mechanical Ventilation Oxygen Flow Rate Fraction of Inspired Oxygen 30 07/26/24 12:00 07/26/24 12:00 07/26/24 14:00 Temperature 36.4 C L Pulse Rate 122 H 115 H Respiratory Rate 22 H Blood Pressure 104/68 117/86 Pulse Oximetry 98 Oxygen Delivery Oxygen Flow Rate Fraction of Inspired Oxygen 30 07/26/24 14:27 07/26/24 14:36 07/26/24 14:49 Temperature Pulse Rate 118 H 119 H 116 H Respiratory Rate 20 Blood Pressure 96/75 L 96/75 L Pulse Oximetry Oxygen Delivery Oxygen Flow Rate Fraction of Inspired Oxygen 07/26/24 14:50 07/26/24 15:01 07/26/24 15:36 Temperature Pulse Rate 120 H 123 H 124 H Respiratory Rate 20 24 H Blood Pressure Pulse Oximetry 98 Oxygen Delivery Mechanical Ventilation Oxygen Flow Rate Fraction of Inspired Oxygen 30 07/26/24 15:36 Temperature Pulse Rate 124 H Respiratory Rate 24 H Blood Pressure Pulse Oximetry Oxygen Delivery Oxygen Flow Rate Fraction of Inspired Oxygen Exam Narrative: General: Alert oriented x3, no acute distress Neck: Supple, unable to assess JVD is patient is lying flat Chest: Bilaterally basilar rales, no rhonchi Cardiac: S1, S2 +, regular rate, regular rhythm, systolic murmur + Extremities: Bilateral lower extremity edema 2+, no skin rash Neurologic: Intubated and sedated Results Labs and Meds 07/26/24 05:26 07/26/24 05:26 Lab results: Cardiac Enzymes 07/25/24 07/25/24 07/26/24 Range/Units 16:12 21:25 05:26 AST 193 H (14-36) U/L Troponin I 0.468 H* 0.389 H* (0.000-0.034) ng/mL Coagulation 07/25/24 07/26/24 07/26/24 Range/Units 18:43 01:53 05:26 PT 15.9 H 15.8 H (11.1-14.7) Seconds APTT 26.3 156.5 H (22.3-36.8) Seconds 07/26/24 Range/Units 08:35 PT (11.1-14.7) Seconds APTT 158.5 H (22.3-36.8) Seconds CBC 07/25/24 07/26/24 Range/Units 18:43 05:26 WBC 9.2 8.7 (4.5-10.0) K/mm3 RBC 4.31 4.27 (4.2-5.4) M/mm3 Hgb 12.8 12.7 (12.0-15.0) g/dL Hct 41.6 40.4 (37.0-47.0) % Plt Count 183 160 (150-375) k/mm3 Lymph # (Auto) 1.61 2.09 (0.9-3.2) K/mm3 [place] # (Auto) 1.0 H 0.7 H (0.1-0.6) K/mm3 Eos # (Auto) 0.2 0.4 H (0-0.3) K/mm3 Baso # (Auto) 0.0 0.1 (0.0-0.1) K/mm3 Comprehensive Metabolic Panel 07/25/24 07/26/24 Range/Units 18:43 05:26 Sodium 128 L 128 L (137-145) mmol/L Potassium 4.7 4.3 (3.4-5.0) mmol/L Chloride 88 L 90 L (98-107) mmol/L Carbon Dioxide 30 32 H (22-30) mmol/L BUN 50 H 47 H (7-17) mg/dL Creatinine 2.78 H 2.47 H (0.7-1.0) mg/dL Glucose 137 H 117 H (65-110) mg/dL Calcium 10.3 H 10.0 (8.4-10.2) mg/dL AST 193 H (14-36) U/L ALT 176 H (6-35) U/L Alkaline Phosphatase 83 (38-126) U/L Total Protein 6.0 L (6.3-8.2) g/dL Albumin 3.6 (3.5-5.1) g/dL Intake and Output 07/25/24 07/26/24 07/26/24 23:59 07:59 15:59 Intake Total 176.3 675.5 225.7 Output Total 50 500 Balance 126.3 175.5 225.7 Intake: IV 176.3 555.5 225.7 Amiodarone 360 mg/D5w 200 ml 97.2 360 mg In 200 ml @ 1 MG/MIN 33. 333 mls/hr IV CONT .Q6H ONE Rx# :[id number] Fentanyl 2,500Mcg/Va955ti(*Crx 18.8 146.7 77 2,500 mcg In 250 ml @ 150 MCG/ HR 15 mls/hr IV CONT .[id number] [facility] [place] Rx#:[id number] Heparin Sod/D5w 100 Units/ml 25 100.8 64 ,000 units In 250 ml @ 1,200 UNITS/HR 12 mls/hr IV CONT . [id number] [facility] [place] Rx#:[id number] Midazolam 100Mg/Ns 100Ml(*Crx) 5.7 40.1 7.2 100 mg In 100 ml @ 4 MG/HR 4 mls/hr IV CONT .Q25H [facility] [place] Rx#: [id number] Norepinephrine 8 mg/D5w 250 ml 54.6 117.9 77.5 8 mg In 250 ml @ 8 MCG/MIN 15 mls/hr IV CONT .[id number] [facility] [place] Rx# :[id number] Cefepime 2 gm/Ns 50 ml 2 gm In 50 50 ml @ 100 mls/hr IVPB Q24H [facility] [place] Rx#:[id number] Doxycycline 100 mg/Ns 100 ml 100 100 mg In 100 ml @ 100 mls/hr IVPB Q12H [facility] [place] Rx#:[id number] Oral 0 Other 120 Output: Catheter Urine 50 400 Urethral Catheter 50 400 Gastric Drainage 100 [place] Sump Oral 100 Other: Intake, Other Source Meds per tube Patient Weight 07/26/24 23:59 Weight 127.2 kg
[2024-07-26] MEDS: PANTOPRAZOLE SODIUM IV 40 MG VIAL IV PUSH (15:50)
[2024-07-26 16:28] LABS: Partial Thromboplastin Time 118.3 Seconds (22.3-36.8)
[2024-07-26] MEDS: HEPARIN SOD/D5W 100 UNITS/ML 25,000 UNITS/250 ML BAG 8 UNITS IV CONT (17:03)
--- NOTE | 2024-07-26 20:00 | PC.NURSE ---
This RN removed 6 rings from patient's fingers before hands would become too edematous to remove. Rings placed in biohazard bag with patient label and placed on whiteboard in patient's room
[2024-07-26 23:31] LABS: Partial Thromboplastin Time 87.7 Seconds (22.3-36.8)
[2024-07-27] VITALS (34 sets, daily range): BP systolic 62–117; BP diastolic 35–97; PULSE 106–138; RESP 20–30; TEMP 35.9–36.6; O2SAT 59–96
[2024-07-27] MEDS: CEFEPIME 2 GM/NS 50 ML 2 GM/50 ML BAG IVPB (01:10)
[2024-07-27] MEDS: LEVALBUTEROL NEB 1.25 MG/3 ML 0.63 MG INHALATION ×3 (01:38→13:38)
[2024-07-27] MEDS: IPRATROPIUM BR 0.02% INH SOLN 0.5 MG/2.5 ML VIAL INHALATION ×3 (01:38→13:39)
[2024-07-27 04:29] LABS: Vancomycin Trough 11.7 ug/mL (10.0-15.0)
[2024-07-27] MEDS: AMIODARONE 360 MG/D5W 200 ML 360 MG/200 ML BAG 33.33 MG IV CONT ×2 (04:58→10:11)
[2024-07-27] MEDS: CENTRAL LINE FLUSH 10 ML IV PUSH (05:23)
[2024-07-27 05:24] LABS: Alveolar/Arterial O2 Gradient 64.2 mmHg; Base Excess ABG 0.3 mEq/l (+/-2.0); Carboxyhemoglobin 0.9 % THb (0-2.0); Fractional Inspired Oxygen 30 %; HCO3 ABG 27.2 mEq/l (22.0-26.0); Methemoglobin ABG 0.1 %THb (0-1.5); Oxygen Saturation ABG 95.7 % (95.0-100.0); Oxyhemoglobin 95.4 % THb (90.0-100.0); PCO2 ABG 53.8 mmHg (35.0-45.0); PO2 ABG 86.5 mmHg (80.0-100.0); PO2 FiO2 Ratio Arterial Blood 2.88 %; Reduced Hemoglobin 3.6 %THb (0-5.0); Total Hemoglobin 13.4 g/dL (12.0-18.0); pH ABG 7.322 (7.350-7.450)
[2024-07-27 05:26] LABS: Arterial Blood Gas Ventilator rate 20 /MIN; Device VENTILATOR; Modified Allen's Test Pass; Site Drawn LEFT RADIAL
[2024-07-27 05:27] LABS: Arterial Blood Gas PEEP 5 cmH2O; Arterial Blood Gas Tidal Volume 320 ml; Arterial Blood Gas Vent Mode CMV
[2024-07-27 05:36] LABS: Basophils Absolute Auto 0.1 K/mm3 (0.0-0.1); Basophils Percent Auto 0.6 % (0.2-1.2); Eosinophils Absolute Auto 0.4 K/mm3 (0-0.3); Eosinophils Percent Auto 3.4 % (0-4.4); Hematocrit 39.8 % (37.0-47.0); Hemoglobin 12.6 g/dL (12.0-15.0); Immature Granulocyte Absolute 0.03 K/mm3 (0.00-0.031); Immature Granulocyte Percent A 0.3 % (0-0.5); Lymphocytes Absolute Auto 1.75 K/mm3 (0.9-3.2); Lymphocytes Percent Auto 16.7 % (18.3-44.2); Mean Corpuscular HGB Conc 31.7 g/dl (32-36); Mean Corpuscular Hemoglobin 30.3 pg (26-34); Mean Corpuscular Volume 95.7 fl (80-100); Mean Platelet Volume 11.3 fl (7.4-10.4); Monocytes Absolute Auto 0.8 K/mm3 (0.1-0.6); Monocytes Percent Auto 7.2 % (2.6-8.5); Neutrophils Absolute Auto 7.5 K/mm3 (1.3-6.7); Neutrophils Percent Auto 71.8 % (45.5-73.1); Platelet Count Result 147 k/mm3 (150-375); Red Blood Count 4.16 M/mm3 (4.2-5.4); Red Cell Distribution Width 16.7 % (11.5-14.5); White Blood Count 10.5 K/mm3 (4.5-10.0)
[2024-07-27 05:49] LABS: Partial Thromboplastin Time 71.2 Seconds (22.3-36.8)
[2024-07-27] MEDS: VANCOMYCIN 1,750 MG/NS 500 ML 1,750 MG/500 ML BAG 250 MG IVPB (06:07)
--- NOTE | 2024-07-27 07:00 | ECG_ITS ---
Test Date: 2024-07-27 09:20:35 Measurements Intervals [place] Rate: 129 P: 0 IN: 0 QRS: 127 QRSD: 108 T: -8 QT: 292 QTc: 429 Interpretive Statements ATRIAL FIBRILLATION WITH RAPID VENTRICULAR RESPONSE RIGHT AXIS DEVIATION LOW QRS VOLTAGE- DIFFUSE LEADS BORDERLINE ST-T WAVE ABNORMALITY- INFERIOR LEADS ABNORMAL ECG Compared to ECG 07/25/2024 02:57:51 Right-axis deviation now present Electronically Signed On 07-27-2024 09:22:22 [employer] by Ryland Mckeon D.O.
[2024-07-27 07:46] LABS: Alanine Aminotransferase 168 U/L (6-35); Albumin Level 3.1 g/dL (3.5-5.1); Alkaline Phosphatase 66 U/L (38-126); Anion Gap 7 mmol/L (4-12); Aspartate Amino Transferase 157 U/L (14-36); Bilirubin,Total 0.6 mg/dL (0.2-1.3); Blood Urea Nitrogen 44 mg/dL (7-17); Calcium 9.4 mg/dL (8.4-10.2); Carbon Dioxide 28 mmol/L (22-30); Chloride 92 mmol/L (98-107); Estimated CRCL calculation 27 ml/min; Estimated Glomerular Filt Rate 26; Glucose 148 mg/dL (65-110); Magnesium 1.8 mg/dL (1.6-2.3); Phosphorus 3.4 mg/dL (2.5-4.5); Potassium 4.3 mmol/L (3.4-5.0); Sodium 127 mmol/L (137-145)
[2024-07-27] MEDS: PANTOPRAZOLE SODIUM IV 40 MG VIAL IV PUSH (08:46)
[2024-07-27] MEDS: NOREPINEPHRINE 8 MG/D5W 250 ML 8 MG/250 ML BAG 22.5 MG IV CONT (08:49)
[2024-07-27] MEDS: MINERAL OIL/WHITE PETROLATUM OINTMENT 1 APPLIC EACH EYE (08:50)
[2024-07-27] MEDS: MUPIROCIN 2% OINT 22 GM TUBE 1 APPLIC EACH NARE (08:50)
--- NOTE | 2024-07-27 09:45 | P.PNNP_ITS ---
Subjective Date/time seen: 07/27/24 09:45 Objective Data Vital Signs Vital Signs: Vital Signs Temp Pulse Resp BP Pulse Ox O2 Del Method FiO2 07/27/24 08:49 127 H 116/97 H 07/27/24 08:15 133 H 22 H 07/27/24 08:00 96.8 F L 120 H 20 105/69 95 07/27/24 08:00 30 07/27/24 08:00 120 H 07/27/24 08:00 120 H 20 95 Mechanical Ventilation 07/27/24 08:00 126 H 20 07/27/24 08:00 126 H 105/69 07/27/24 08:00 126 H 20 07/27/24 08:00 126 H 105/69 07/27/24 07:55 132 H 23 H 07/27/24 07:40 126 H 96 Mechanical Ventilation 07/27/24 06:31 138 H 70/45 L 07/27/24 06:14 97.2 F L 129 H 20 106/64 96 07/27/24 06:00 97.2 F L 126 H 20 112/64 96 07/27/24 06:00 135 H 07/27/24 06:00 134 H 20 07/27/24 06:00 132 H 112/64 07/27/24 06:00 134 H 20 07/27/24 06:00 128 H 112/64 07/27/24 05:30 97.6 F 129 H 20 96/72 L 96 07/27/24 05:21 131 H 96 Mechanical Ventilation 07/27/24 05:17 97.8 F 130 H 20 85/50 L 93 07/27/24 05:17 130 H 85/50 L 07/27/24 04:58 124 H 113/60 07/27/24 04:58 124 H 113/60 07/27/24 04:00 128 H 20 07/27/24 04:00 129 H 07/27/24 04:00 129 H 99/71 L 07/27/24 04:00 129 H 20 07/27/24 04:00 129 H 99/71 L 07/27/24 04:00 30 07/27/24 04:00 97.8 F 129 H 21 H 99/71 L 95 07/27/24 04:00 135 H 20 95 Mechanical Ventilation 07/27/24 02:00 129 H 20 07/27/24 02:00 125 H 20 07/27/24 02:00 125 H 80/46 L 07/27/24 02:00 125 H 20 07/27/24 02:00 98 F 125 H 20 80/46 L 94 07/27/24 02:00 126 H 07/27/24 01:47 123 H 20 07/27/24 01:45 124 H 78/35 L 07/27/24 01:45 98 F 124 H 20 78/35 L 94 07/27/24 01:38 129 H 20 07/27/24 01:38 129 H 94 Mechanical Ventilation 07/27/24 01:15 97.9 F 122 H 20 108/60 95 07/27/24 01:07 132 H 21 H 07/27/24 01:00 127 H 110/66 07/27/24 01:00 97.9 F 130 H 21 H 110/66 94 07/27/24 00:30 97.9 F 134 H 20 104/50 L 95 07/27/24 00:15 97.9 F 128 H 20 113/74 94 07/27/24 00:00 129 H 07/27/24 00:00 131 H 117/77 07/27/24 00:00 129 H 20 07/27/24 00:00 131 H 20 07/27/24 00:00 131 H 117/77 07/27/24 00:00 97.9 F 125 H 20 117/77 94 07/26/24 23:51 30 07/26/24 23:47 138 H 20 95 Mechanical Ventilation 07/26/24 23:45 141 H 118/76 07/26/24 23:45 97.9 F 141 H 20 118/76 92 07/26/24 23:09 128 H 102/68 07/26/24 23:09 132 H 102/68 07/26/24 22:53 135 H 95 Mechanical Ventilation 07/26/24 22:45 98 F 138 H 20 112/77 95 07/26/24 22:32 134 H 85/53 L 07/26/24 22:30 98 F 125 H 20 85/53 L 95 07/26/24 22:15 98 F 126 H 20 98/49 L 95 07/26/24 22:00 128 H 20 07/26/24 22:00 128 H 20 07/26/24 22:00 128 H 88/51 L 07/26/24 22:00 128 H 88/51 L 07/26/24 22:00 98.0 F 128 H 20 88/51 L 95 07/26/24 22:00 128 H 07/26/24 20:30 124 H 20 07/26/24 20:15 120 H 20 94 Mechanical Ventilation 07/26/24 20:04 121 H 21 H 07/26/24 20:04 121 H 95 Mechanical Ventilation 07/26/24 20:00 119 H 07/26/24 20:00 119 H 20 07/26/24 20:00 119 H 20 07/26/24 20:00 119 H 92/63 L 07/26/24 20:00 119 H 92/63 L 07/26/24 20:00 30 07/26/24 20:00 97.9 F 120 H 20 92/63 L 94 07/26/24 18:00 97.8 F 120 H 20 97/56 L 98 07/26/24 18:00 120 H 07/26/24 17:36 120 H 86/71 L 07/26/24 17:34 120 H 20 07/26/24 17:33 120 H 86/71 L 07/26/24 17:12 128 H 97 Mechanical Ventilation 07/26/24 16:00 97.6 F 117 H 20 93/59 L 97 07/26/24 16:00 30 07/26/24 16:00 117 H 07/26/24 16:00 120 H 20 97 Mechanical Ventilation 07/26/24 15:36 124 H 24 H 07/26/24 15:36 124 H 24 H 07/26/24 15:01 123 H 20 07/26/24 14:50 120 H 98 Mechanical Ventilation 07/26/24 14:49 116 H 20 07/26/24 14:36 119 H 96/75 L 07/26/24 14:27 118 H 96/75 L Intake/Output Intake/Output: Intake & Output 07/24/24 07/25/24 07/26/24 07/27/24 23:59 23:59 23:59 23:59 Intake Total 376.3 1983.3 1355.0 Output Total 50 1050 400 Balance 326.3 933.3 955.0 Meds/Results Medications: Active Medications Generic Name Dose Route Start Last Admin Trade Name Freq PRN Reason Stop Dose Admin Acetaminophen 650 mg 07/25/24 03:37 Acetaminophen 325 Mg Tablet PO Q4H PRN Mild Pain (1-3) or Fever Bisacodyl 5 mg 07/25/24 03:37 Bisacodyl 5 Mg Tablet Ec PO DAILY PRN Constipation Docusate Sodium 100 mg 07/25/24 09:00 07/27/24 08:50 Docusate Sodium 100 Mg Capsule PO Not Given BID BEVERLY Heparin Sodium (Porcine) 5,000 units 07/25/24 09:00 07/25/24 10:35 Heparin Sodium 5,000 Units/Ml Vial SUB-Q 5,000 units Q12HR B[place] Administration Heparin Sodium (Porcine) 6,000 units 07/25/24 18:06 Heparin Sodium 5,000 Units/Ml Vial IV PUSH PRN PRN aPTT less than 55 seconds Heparin Sodium (Porcine) 3,000 units 07/25/24 18:06 Heparin Sodium 5,000 Units/Ml Vial IV PUSH PRN PRN aPTT 55 - 70 seconds Norepinephrine Bitartrate 8 mg in 250 mls @ 22.5 mls/hr 07/25/24 17:00 07/27/24 10:00 Levophed 8 Mg/D5w 250 Ml IV CONT 12 mcg/min .Q11H7M [place] 22.5 mls/hr Titration Protocol 12 MCG/MIN Heparin Sodium/Dextrose 25,000 units in 250 mls @ 8 mls/hr 07/25/24 18:10 07/27/24 10:00 Heparin Sodium/D5w 100 Units/Ml IV CONT 800 units/hr .Q24H B[facility] 8 mls/hr Titration Protocol 800 UNITS/HR Fentanyl Citrate 2,500 mcg in 250 mls @ 7.5 mls/hr 07/25/24 20:05 07/27/24 10:00 Fentanyl 2,500 Mcg/Ns 250 Ml IV CONT 75 mcg/hr .[id number] [place] 7.5 mls/hr Titration Protocol 75 MCG/HR Midazolam HCl 100 mg in 100 mls @ 1 mls/hr 07/25/24 20:05 07/27/24 10:00 Versed 100 Mg/Ns 100 Ml IV CONT 1 mg/hr .Q72H [place] 1 mls/hr Titration Protocol 1 MG/HR Cefepime HCl 2 gm in 50 mls @ 100 mls/hr 07/26/24 01:00 07/27/24 01:40 Maxipime 2 Gm/Ns 50 Ml IVPB Infused Q24H [facility] Infusion Doxycycline Hyclate 100 mg in 100 mls @ 100 mls/hr 07/26/24 00:00 07/27/24 00:08 Vibramycin 100 Mg/Ns 100 Ml IVPB Infused Q12H [facility] Infusion Amiodarone HCl/Dextrose 360 mg in 200 mls @ 33.333 mls/hr 07/26/24 17:52 07/27/24 10:11 Nexterone 360 Mg/D5w 200 Ml IV CONT 07/27/24 17:51 1 mg/min .Q6H B[place] 33.33 mls/hr Administration Protocol 1 MG/MIN Ipratropium [place] 0.5 mg 07/26/24 14:00 07/27/24 13:39 Ipratropium Br 0.02% Inh Soln 0.5 Mg/2.5 Ml Vial INHALATION 0.5 mg Q6HRT [place] Administration Levalbuterol HCl 0.63 mg 07/26/24 14:00 07/27/24 13:38 Levalbuterol Neb 1.25 Mg/3 Ml INHALATION 0.63 mg Q6HRT [place] Administration Melatonin 5 mg 07/25/24 03:37 Melatonin 5 Mg Tablet PO HS PRN Insomnia Metoprolol Tartrate 25 mg 07/25/24 21:00 07/26/24 09:14 Metoprolol Tartrate 25 Mg Tablet PO Not Given Q12HR [facility] Multi-Ingred Cream/Lotion/Oil/Oint 1 applic 07/25/24 21:00 07/27/24 08:50 Mineral Oil/White Petrolatum Ointment EACH EYE 1 applic Q12HR [place] Administration Mupirocin 1 applic 07/25/24 21:15 07/27/24 08:50 Mupirocin 2% Oint 22 Gm Tube EACH NARE 07/30/24 09:01 1 applic Q12HR [place] Administration Ondansetron HCl 4 mg 07/25/24 01:56 Ondansetron Inj 4 Mg/2 Ml Vial IV PUSH Q4H PRN Nausea Pantoprazole Sodium 40 mg 07/27/24 09:00 07/27/24 08:46 Pantoprazole Sodium Iv 40 Mg Vial IV PUSH 40 mg QAM [place] Administration Perflutren Lipid Microsphere 0 ml 07/25/24 03:52 Perflutren Lipid Microspheres 1.5 Ml Vial Diluted To 10 Ml Total Volume IV PUSH 07/28/24 03:52 ONCE PRN adequate visualization Protocol Sodium Chloride 10 ml 07/25/24 22:00 07/27/24 05:23 Central Line Flush IV PUSH 10 ml Q8HR [place] Administration Sodium Chloride 20 ml 07/25/24 17:48 Central Line Flush IV PUSH PRN PRN after blood draws Vancomycin HCl 1 each 07/26/24 00:08 Vancomycin For Acute Kidney Injury IVPB PRN PRN Vancomycin Protocol Radiology Results: ITS Impressions Venous Doppler Study 07/25/24 17:06 IMPRESSION: 1. Bilateral deep vein thrombosis. ADDENDUM: 07/25/24 [id number] I called this result to Val[facility]. Head CT 07/25/24 23:02 IMPRESSION: No acute intracranial process. Abdomen Ultrasound 07/26/24 08:48 IMPRESSION: 1: Unremarkable limited abdominal ultrasound. Renal Ultrasound 07/26/24 13:02 IMPRESSION: No hydronephrosis or renal calculi. Cortical thinning detected bilaterally. Bilateral simple cysts. Chest X-Ray 07/27/24 06:19 Impression: Small bilateral pleural effusions with mild pulmonary edema pattern. Support tubes, as above. Labs Labs: Laboratory Tests 07/27/24 05:22 07/27/24 05:22 07/26/24 07/26/24 07/26/24 12:45 16:04 23:05 WBC RBC Hgb Hct MCV MCH MCHC RDW Plt Count MPV Immature Gran % (Auto) Neut % (Auto) Lymph % (Auto) [place] % (Auto) Eos % (Auto) Baso % (Auto) Lymph # (Auto) [place] # (Auto) Eos # (Auto) Baso # (Auto) Abs Immat Gran (auto) Absolute Neuts (auto) Absolute Nucleated RBC Nucleated RBC % APTT 118.3 H 87.7 H Puncture Site ABG pH ABG pCO2 ABG pO2 ABG PO2/FiO2 Ratio ABG HCO3 ABG O2 Saturation ABG O2 Content ABG Base Excess A-a Gradient Oxyhemoglobin Carboxyhemoglobin Methemoglobin Reduced Hemoglobin Total Hemoglobin O2 Delivery Device O2 Liters/Min Minute Volume Vent Rate Vent Mode FiO2 Tidal Volume PEEP Peak Inspir Pressure Pressure Support Sodium Potassium Chloride Carbon Dioxide Anion Gap BUN Creatinine Estim Creat Clear Calc Estimated GFR Glucose Calcium Phosphorus Magnesium Total Bilirubin AST ALT Alkaline Phosphatase Total Protein Albumin Rddgj-4-Ujtrlznae Ytnvz-0-Fzmygwhfr Ftjp-6-Txmjnzpc Dbdr-3-Cnjklfom Gamma Globulins Abnorm Protein Band 1 Abnorm Protein Band 3 PEP Interpretation Urine Eosinophils None seen Vancomycin Trough [place]/Lambda Ratio Free [place] Light Chains Free Lambda Light Chain 07/27/24 07/27/24 07/27/24 01:05 05:21 05:22 WBC 10.5 H RBC 4.16 L Hgb 12.6 Hct 39.8 MCV 95.7 MCH 30.3 MCHC 31.7 L RDW 16.7 H Plt Count 147 L MPV 11.3 H Immature Gran % (Auto) 0.3 Neut % (Auto) 71.8 Lymph % (Auto) 16.7 L [place] % (Auto) 7.2 Eos % (Auto) 3.4 Baso % (Auto) 0.6 Lymph # (Auto) 1.75 [place] # (Auto) 0.8 H Eos # (Auto) 0.4 H Baso # (Auto) 0.1 Abs Immat Gran (auto) 0.03 Absolute Neuts (auto) 7.5 H Absolute Nucleated RBC 0.000 Nucleated RBC % 0.0 APTT 71.2 H Puncture Site Left radial ABG pH 7.322 L ABG pCO2 53.8 H ABG pO2 86.5 ABG PO2/FiO2 Ratio 2.88 ABG HCO3 27.2 H ABG O2 Saturation 95.7 ABG O2 Content 18.0 ABG Base Excess 0.3 A-a Gradient 64.2 Oxyhemoglobin 95.4 Carboxyhemoglobin 0.9 Methemoglobin 0.1 Reduced Hemoglobin 3.6 Total Hemoglobin 13.4 O2 Delivery Device Ventilator O2 Liters/Min Not Reportable Minute Volume Not Reportable Vent Rate 20 Vent Mode Cmv FiO2 30 Tidal Volume 320 PEEP 5 Peak Inspir Pressure Not Reportable Pressure Support Not Reportable Sodium 127 L Potassium 4.3 Chloride 92 L Carbon Dioxide 28 Anion Gap 7 BUN 44 H Creatinine 1.82 H Estim Creat Clear Calc 27 Estimated GFR 26 L Glucose 148 H Calcium 9.4 Phosphorus 3.4 Magnesium 1.8 Total Bilirubin 0.6 AST 157 H ALT 168 H Alkaline Phosphatase 66 Total Protein 6.0 L Albumin Dfwne-7-Djdjqxwpq Qozso-0-Pjmocegpq Cebc-2-Baicixms Dvsk-8-Wqcbjrir Gamma Globulins Abnorm Protein Band 1 Abnorm Protein Band 3 PEP Interpretation Urine Eosinophils Vancomycin Trough 11.7 [place]/Lambda Ratio Free [place] Light Chains Free Lambda Light Chain 07/27/24 07/27/24 05:22 05:22 WBC RBC Hgb Hct MCV MCH MCHC RDW Plt Count MPV Immature Gran % (Auto) Neut % (Auto) Lymph % (Auto) [place] % (Auto) Eos % (Auto) Baso % (Auto) Lymph # (Auto) [place] # (Auto) Eos # (Auto) Baso # (Auto) Abs Immat Gran (auto) Absolute Neuts (auto) Absolute Nucleated RBC Nucleated RBC % APTT Puncture Site ABG pH ABG pCO2 ABG pO2 ABG PO2/FiO2 Ratio ABG HCO3 ABG O2 Saturation ABG O2 Content ABG Base Excess A-a Gradient Oxyhemoglobin Carboxyhemoglobin Methemoglobin Reduced Hemoglobin Total Hemoglobin O2 Delivery Device O2 Liters/Min Minute Volume Vent Rate Vent Mode FiO2 Tidal Volume PEEP Peak Inspir Pressure Pressure Support Sodium Potassium Chloride Carbon Dioxide Anion Gap BUN Creatinine Estim Creat Clear Calc Estimated GFR Glucose Calcium Phosphorus Magnesium Total Bilirubin AST ALT Alkaline Phosphatase Total Protein Pending Albumin 3.1 L Pending Csckz-0-Byqtfmkgk Pending Iydhx-6-Dvscsjmof Pending Odbm-3-Vbzpqlll Pending Wpuu-4-Xfkavgsh Pending Gamma Globulins Pending Abnorm Protein Band 1 Pending Abnorm Protein Band 3 Pending PEP Interpretation Pending Urine Eosinophils Vancomycin Trough [place]/Lambda Ratio Pending Free [place] Light Chains Pending Free Lambda Light Chain Pending Microbiology 07/25/24 18:43 Urine [place] Urine Culture - Final Citrobacter freundii 07/25/24 16:12 Blood Blood Culture - Preliminary 07/25/24 16:12 Blood Blood Culture - Preliminary
--- NOTE | 2024-07-27 11:48 | PCFNICU ---
ICU Rounding Note: Pt current nutrition is Vital HP at 60 ml/hr. Last recorded weight is 128 kg, stable Bowel Motility: Last reported BM 07/23 Labs Reviewed:Glu 148, Cr 1.82, BUN 55, GFR 26, Na 127 Meds Noted:Levophed, Fentanyl, Versed Skin: WNL Additional Notes: Patient remains on mechanical vent. Tube feedings at goal rate of 60 ml/hr Vital HP. Flush 30 ml q 4 hours. Discussions in ICU rounds regarding plan of care. Agree with diet orders at this time. Following daily in ICU rounds. Will monitor weight, labs, skin, diet orders, meds, tube feeding tolerance every Thursday and Thursday.
--- NOTE | 2024-07-27 11:56 | WPDINTPN ---
Progress Note: A&P Assessment and Plan (1) Acute hypoxic respiratory failure: Code(s): J96.01 - Acute respiratory failure with hypoxia Status: Acute Assessment and Plan: Acute hypoxic and hypercapnic respiratory failure requiring intubation on 07/25/2024 -etiology can be multifactorial, CHF, pneumonia, PE (patient does patient does have extensive DVTs bilaterally on venous Dopplers done on 07/25/2024). Unable to obtain CTA due to acute on chronic kidney disease -could be PE as echocardiogram shows right ventricular chamber dimension is severely enlarged, severe are a dilatation, moderate LA dilatation. Cardiology also thinks this most likely is PE given echocardiogram findings along with her signs and symptoms. -continue CMV mode of ventilation, peep of 5, 30% FiO2 -started patient on bronchodilators -chest x-ray and ABGs reviewed, ventilator adjusted -sedated with fentanyl and Versed infusion, maintain RASS of 0 to -2, daily SBT and SAT 07/26/2024: Echocardiogram Summary 1. Technically difficult study with limited views. 2. Left ventricular chamber dimension is normal. 3. Left ventricular systolic function is normal, estimated at 55-60%. 4. Right ventricular chamber dimension is severely enlarged. 5. Right ventricular systolic function is reduced. 6. Left atrial chamber dimension is moderately enlarged. 7. Right atrial chamber dimension is severely enlarged. 8. There is mild mitral valve regurgitation. 9. There is moderate tricuspid valve regurgitation. 10. Left pleural effusion present. (2) Shock: Code(s): R57.9 - Shock, unspecified Status: Acute Assessment and Plan: Patient was hypotensive upon arrival to the ICU, she was given Lasix 80 mg IV x1 in the ER with no response -patient was given 500 mL IV fluid bolus and albumin -07/25: Central line was inserted and patient was started on Levophed , maintain MAP > 65 mmHg -07/25: Urine cultures growing Gram-negative bacilli -07/25: Preliminary blood culture is negative x2 -started patient on cefepime, doxycycline and vancomycin (07/25) -monitor for urine output (3) Atrial fibrillation with rapid ventricular response: Code(s): I48.91 - Unspecified atrial fibrillation Status: Acute Assessment and Plan: Patient went to AFib RVR, could be related to PE -currently on heparin infusion -continue amiodarone infusion at 1 mg/min -appreciate cardiology evaluation and recommendation (4) Acute on chronic kidney failure: Code(s): N17.9 - Acute kidney failure, unspecified; N18.9 - Chronic kidney disease, unspecified Status: Acute Assessment and Plan: Acute on chronic kidney disease stage III -patient was hypotensive with systolics in the 60s and 70s -she does take Lasix, metoprolol at home -BNP was greater than 30,000, received Lasix 80 mg IV x1 in the ER with not much response -nephrology has been consulted, appreciate their evaluation and recommendations -status post a annulus at 100 mL/hour for 1000 mL which has been completed -07/26: renal ultrasound with no hydronephrosis or renal calculi. Cortical thinning detected bilaterally, bilateral simple cysts. -continue to monitor urine output, renal function and electrolytes -nephrology following the patient -low urine output with creatinine improving (5) DVT, bilateral lower limbs: Code(s): I82.403 - Acute embolism and thrombosis of unspecified deep veins of lower extremity, bilateral Status: Acute Assessment and Plan: 07/25/2024: Venous Dopplers: Bilateral extensive DVTs -currently on heparin infusion (6) Electrolyte imbalance: Code(s): E87.8 - Other disorders of electrolyte and fluid balance, not elsewhere classified Status: Acute Assessment and Plan: Patient was hyperkalemic, she does take potassium supplements at home -treated in the ICU -potassium has normalized this morning, will continue to monitor Plan DVT prophylaxis: Heparin infusion Stress ulcer prophylaxis: Protonix Nutrition: Tolerating tube feeds Code Status: Full code Critical Care Time Spent: 33 minutes According to the bedside RN, patient's daughter and will likely withdraw support and being the patient comfort measures 07/26: Discussed with daughter Mami Burns, who is the POA, updated her with patient's condition and plan of care. We discussed at length patient has multiple admissions, quality of life, current diagnoses and treatment plan. Daughter stated that the patient had told her that she was to go and meet guarded and she is tired of all this. I discussed with her regarding code status to which she said the patient would not want CPR. Since his minimally less than 24 hours and the patient has been intubated we will continue to will treat doing for now, in case heart stops will let her go in peace and dignity. Daughter is agreeable to this. Due to a high probability of clinically significant, life threatening deterioration, the patient required my highest level of preparedness to intervene emergently and I personally spent this critical care time directly and personally managing the patient. This critical care time included obtaining a history; examining the patient; pulse oximetry; ordering and review of studies; arranging urgent treatment with development of a management plan; evaluation of patient's response to treatment; frequent reassessment; and discussions with other providers. It was exclusive of separately billable procedures and treating other patients and teaching time. Please see Assessment and Plan section and the rest of the note for further information on patient assessment and treatment This dictation may have been done utilizing a voice recognition system. Attempts have been made to correct errors. However, there may be uncorrected grammatical, spelling, and recognitions errors present. Subjective Date/time seen: 07/27/24 11:56 Interval history: 84 y/o female patient with past medical history of PVD, tobacco use, obesity hypoventilation syndrome, morbid obesity, chronic kidney disease, GERD, chronic back pain, opioid dependence, esophageal, recent hospitalization in 06/2024 (treated for acute respiratory failure, CHF exacerbation, NSTEMI, AFib with RVR, altered mental status, acute on chronic kidney disease) presented with chief complaints of shortness of breath on 07/25/2024. Accompanying symptoms include dizziness, fatigue, generalized weakness 07/25: Intubated 07/27/2024: Patient seen and examined the ICU, remains intubated on CMV mode of ventilation, peep of 5, 30% FiO2. Sedated with fentanyl and Versed infusion, does not open her eyes and follows simple commands for me. Increasing Levophed requirements, urine culture growing Gram-negative bacilli. Creatinine gradually improving. Tolerating tube feeds Review of Systems Review of Systems: ROS unobtainable: Yes unobtainable due to endotracheal tube, unobtainable due to medical condition and unobtainable due to mental status Exam Narrative: General: Obese female, intubated, sedated in no acute distress HEENT:? Pupils are equal and reactive, sclera is clear Neck:? Thick neck Respiratory:? Coarse breath sounds bilaterally, decreased at bases, no wheezing, adequate air entry Cardiac:? Irregularly irregular, tachycardia Abdomen:? Soft, non tender, non distended, morbidly obese, hypoactive bowel sounds Extremities:? Bilateral lower extremity edema, palpable pedal pulses Neuro:? Patient is intubated, sedated, does not open her eyes or follow simple commands Skin:? No skin lesions noted Psych:? Unable to assess Objective Data Vital Signs Vital Signs: Vital Signs - 24 hr 07/26/24 11:58 07/26/24 12:00 07/26/24 12:00 Temperature Pulse Rate 116 H 124 H 124 H Respiratory Rate Blood Pressure 103/82 107/77 107/77 Pulse Oximetry Oxygen Delivery Fraction of Inspired Oxygen 07/26/24 12:00 07/26/24 12:00 07/26/24 12:00 Temperature Pulse Rate 113 H 17 L 120 H Respiratory Rate 20 20 20 Blood Pressure Pulse Oximetry 98 Oxygen Delivery Mechanical Ventilation Fraction of Inspired Oxygen 30 07/26/24 12:00 07/26/24 12:00 07/26/24 12:00 Temperature 97.5 F L Pulse Rate 122 H 122 H Respiratory Rate 22 H Blood Pressure 104/68 Pulse Oximetry 98 Oxygen Delivery Fraction of Inspired Oxygen 30 07/26/24 14:00 07/26/24 14:00 07/26/24 14:00 Temperature 97.5 F L Pulse Rate 115 H 128 H 123 H Respiratory Rate 20 Blood Pressure 117/86 117/86 Pulse Oximetry 98 Oxygen Delivery Fraction of Inspired Oxygen 07/26/24 14:00 07/26/24 14:27 07/26/24 14:36 Temperature Pulse Rate 120 H 118 H 119 H Respiratory Rate 20 Blood Pressure 96/75 L 96/75 L Pulse Oximetry Oxygen Delivery Fraction of Inspired Oxygen 07/26/24 14:49 07/26/24 14:50 07/26/24 15:01 Temperature Pulse Rate 116 H 120 H 123 H Respiratory Rate 20 20 Blood Pressure Pulse Oximetry 98 Oxygen Delivery Mechanical Ventilation Fraction of Inspired Oxygen 30 07/26/24 15:36 07/26/24 15:36 07/26/24 16:00 Temperature Pulse Rate 124 H 124 H 120 H Respiratory Rate 24 H 24 H 20 Blood Pressure Pulse Oximetry 97 Oxygen Delivery Mechanical Ventilation Fraction of Inspired Oxygen 30 07/26/24 16:00 07/26/24 16:00 07/26/24 16:00 Temperature 97.6 F Pulse Rate 117 H 117 H Respiratory Rate 20 Blood Pressure 93/59 L Pulse Oximetry 97 Oxygen Delivery Fraction of Inspired Oxygen 30 07/26/24 17:12 07/26/24 17:33 07/26/24 17:34 Temperature Pulse Rate 128 H 120 H 120 H Respiratory Rate 20 Blood Pressure 86/71 L Pulse Oximetry 97 Oxygen Delivery Mechanical Ventilation Fraction of Inspired Oxygen 30 07/26/24 17:36 07/26/24 18:00 07/26/24 18:00 Temperature 97.8 F Pulse Rate 120 H 120 H 120 H Respiratory Rate 20 Blood Pressure 86/71 L 97/56 L Pulse Oximetry 98 Oxygen Delivery Fraction of Inspired Oxygen 07/26/24 20:00 07/26/24 20:00 07/26/24 20:00 Temperature 97.9 F Pulse Rate 120 H 119 H Respiratory Rate 20 Blood Pressure 92/63 L 92/63 L Pulse Oximetry 94 Oxygen Delivery Fraction of Inspired Oxygen 30 07/26/24 20:00 07/26/24 20:00 07/26/24 20:00 Temperature Pulse Rate 119 H 119 H 119 H Respiratory Rate 20 20 Blood Pressure 92/63 L Pulse Oximetry Oxygen Delivery Fraction of Inspired Oxygen 07/26/24 20:00 07/26/24 20:04 07/26/24 20:04 Temperature Pulse Rate 119 H 121 H 121 H Respiratory Rate 21 H Blood Pressure Pulse Oximetry 95 Oxygen Delivery Mechanical Ventilation Fraction of Inspired Oxygen 30 07/26/24 20:15 07/26/24 20:30 07/26/24 22:00 Temperature Pulse Rate 120 H 124 H 128 H Respiratory Rate 20 20 Blood Pressure Pulse Oximetry 94 Oxygen Delivery Mechanical Ventilation Fraction of Inspired Oxygen 30 07/26/24 22:00 07/26/24 22:00 07/26/24 22:00 Temperature 98.0 F Pulse Rate 128 H 128 H 128 H Respiratory Rate 20 Blood Pressure 88/51 L 88/51 L 88/51 L Pulse Oximetry 95 Oxygen Delivery Fraction of Inspired Oxygen 07/26/24 22:00 07/26/24 22:00 07/26/24 22:15 Temperature 98 F Pulse Rate 128 H 128 H 126 H Respiratory Rate 20 20 20 Blood Pressure 98/49 L Pulse Oximetry 95 Oxygen Delivery Fraction of Inspired Oxygen 07/26/24 22:30 07/26/24 22:32 07/26/24 22:45 Temperature 98 F 98 F Pulse Rate 125 H 134 H 138 H Respiratory Rate 20 20 Blood Pressure 85/53 L 85/53 L 112/77 Pulse Oximetry 95 95 Oxygen Delivery Fraction of Inspired Oxygen 07/26/24 22:53 07/26/24 23:09 07/26/24 23:09 Temperature Pulse Rate 135 H 132 H 128 H Respiratory Rate Blood Pressure 102/68 102/68 Pulse Oximetry 95 Oxygen Delivery Mechanical Ventilation Fraction of Inspired Oxygen 30 07/26/24 23:45 07/26/24 23:45 07/26/24 23:47 Temperature 97.9 F Pulse Rate 141 H 141 H 138 H Respiratory Rate 20 20 Blood Pressure 118/76 118/76 Pulse Oximetry 92 95 Oxygen Delivery Mechanical Ventilation Fraction of Inspired Oxygen 30 07/26/24 23:51 07/27/24 00:00 07/27/24 00:00 Temperature 97.9 F Pulse Rate 125 H 131 H Respiratory Rate 20 Blood Pressure 117/77 117/77 Pulse Oximetry 94 Oxygen Delivery Fraction of Inspired Oxygen 30 07/27/24 00:00 07/27/24 00:00 07/27/24 00:00 Temperature Pulse Rate 131 H 129 H 131 H Respiratory Rate 20 20 Blood Pressure 117/77 Pulse Oximetry Oxygen Delivery Fraction of Inspired Oxygen 07/27/24 00:00 07/27/24 00:15 07/27/24 00:30 Temperature 97.9 F 97.9 F Pulse Rate 129 H 128 H 134 H Respiratory Rate 20 20 Blood Pressure 113/74 104/50 L Pulse Oximetry 94 95 Oxygen Delivery Fraction of Inspired Oxygen 07/27/24 01:00 07/27/24 01:00 07/27/24 01:07 Temperature 97.9 F Pulse Rate 130 H 127 H 132 H Respiratory Rate 21 H 21 H Blood Pressure 110/66 110/66 Pulse Oximetry 94 Oxygen Delivery Fraction of Inspired Oxygen 07/27/24 01:15 07/27/24 01:38 07/27/24 01:38 Temperature 97.9 F Pulse Rate 122 H 129 H 129 H Respiratory Rate 20 20 Blood Pressure 108/60 Pulse Oximetry 95 94 Oxygen Delivery Mechanical Ventilation Fraction of Inspired Oxygen 30 07/27/24 01:45 07/27/24 01:45 07/27/24 01:47 Temperature 98 F Pulse Rate 124 H 124 H 123 H Respiratory Rate 20 20 Blood Pressure 78/35 L 78/35 L Pulse Oximetry 94 Oxygen Delivery Fraction of Inspired Oxygen 07/27/24 02:00 07/27/24 02:00 07/27/24 02:00 Temperature 98 F Pulse Rate 126 H 125 H 125 H Respiratory Rate 20 20 Blood Pressure 80/46 L Pulse Oximetry 94 Oxygen Delivery Fraction of Inspired Oxygen 07/27/24 02:00 07/27/24 02:00 07/27/24 02:00 Temperature Pulse Rate 125 H 125 H 129 H Respiratory Rate 20 20 Blood Pressure 80/46 L Pulse Oximetry Oxygen Delivery Fraction of Inspired Oxygen 07/27/24 04:00 07/27/24 04:00 07/27/24 04:00 Temperature 97.8 F Pulse Rate 135 H 129 H Respiratory Rate 20 21 H Blood Pressure 99/71 L Pulse Oximetry 95 95 Oxygen Delivery Mechanical Ventilation Fraction of Inspired Oxygen 30 30 07/27/24 04:00 07/27/24 04:00 07/27/24 04:00 Temperature Pulse Rate 129 H 129 H 129 H Respiratory Rate 20 Blood Pressure 99/71 L 99/71 L Pulse Oximetry Oxygen Delivery Fraction of Inspired Oxygen 07/27/24 04:00 07/27/24 04:00 07/27/24 04:58 Temperature Pulse Rate 129 H 128 H 124 H Respiratory Rate 20 Blood Pressure 113/60 Pulse Oximetry Oxygen Delivery Fraction of Inspired Oxygen 07/27/24 04:58 07/27/24 05:17 07/27/24 05:17 Temperature 97.8 F Pulse Rate 124 H 130 H 130 H Respiratory Rate 20 Blood Pressure 113/60 85/50 L 85/50 L Pulse Oximetry 93 Oxygen Delivery Fraction of Inspired Oxygen 07/27/24 05:21 07/27/24 05:30 07/27/24 06:00 Temperature 97.6 F Pulse Rate 131 H 129 H 128 H Respiratory Rate 20 Blood Pressure 96/72 L 112/64 Pulse Oximetry 96 96 Oxygen Delivery Mechanical Ventilation Fraction of Inspired Oxygen 30 07/27/24 06:00 07/27/24 06:00 07/27/24 06:00 Temperature Pulse Rate 134 H 132 H 134 H Respiratory Rate 20 20 Blood Pressure 112/64 Pulse Oximetry Oxygen Delivery Fraction of Inspired Oxygen 07/27/24 06:00 07/27/24 06:00 07/27/24 06:14 Temperature 97.2 F L 97.2 F L Pulse Rate 135 H 126 H 129 H Respiratory Rate 20 20 Blood Pressure 112/64 106/64 Pulse Oximetry 96 96 Oxygen Delivery Fraction of Inspired Oxygen 07/27/24 06:31 07/27/24 07:40 07/27/24 07:55 Temperature Pulse Rate 138 H 126 H 132 H Respiratory Rate 23 H Blood Pressure 70/45 L Pulse Oximetry 96 Oxygen Delivery Mechanical Ventilation Fraction of Inspired Oxygen 30 07/27/24 08:00 07/27/24 08:00 07/27/24 08:00 Temperature Pulse Rate 126 H 126 H 126 H Respiratory Rate 20 Blood Pressure 105/69 105/69 Pulse Oximetry Oxygen Delivery Fraction of Inspired Oxygen 07/27/24 08:00 07/27/24 08:00 07/27/24 08:00 Temperature Pulse Rate 126 H 120 H 120 H Respiratory Rate 20 20 Blood Pressure Pulse Oximetry 95 Oxygen Delivery Mechanical Ventilation Fraction of Inspired Oxygen 30 07/27/24 08:00 07/27/24 08:00 07/27/24 08:15 Temperature 96.8 F L Pulse Rate 120 H 133 H Respiratory Rate 20 22 H Blood Pressure 105/69 Pulse Oximetry 95 Oxygen Delivery Fraction of Inspired Oxygen 30 07/27/24 08:49 07/27/24 10:00 07/27/24 10:00 Temperature Pulse Rate 127 H 130 H 130 H Respiratory Rate 20 Blood Pressure 116/97 H 94/69 L Pulse Oximetry Oxygen Delivery Fraction of Inspired Oxygen 07/27/24 10:00 07/27/24 10:00 07/27/24 10:00 Temperature 96.7 F L Pulse Rate 130 H 130 H 130 H Respiratory Rate 20 20 Blood Pressure 96/64 L Pulse Oximetry 95 Oxygen Delivery Fraction of Inspired Oxygen 07/27/24 10:11 07/27/24 10:11 Temperature Pulse Rate 130 H 130 H Respiratory Rate Blood Pressure 94/69 L 94/69 L Pulse Oximetry Oxygen Delivery Fraction of Inspired Oxygen Intake/Output Intake/Output: Intake & Output 07/24/24 07/25/24 07/26/24 07/27/24 23:59 23:59 23:59 23:59 Intake Total 376.3 1983.3 1355.0 Output Total 50 1050 400 Balance 326.3 933.3 955.0 Meds/Results Medications: Active Medications Generic Name Dose Route Start Last Admin Trade Name Freq PRN Reason Stop Dose Admin Acetaminophen 650 mg 07/25/24 03:37 Acetaminophen 325 Mg Tablet PO Q4H PRN Mild Pain (1-3) or Fever Bisacodyl 5 mg 02/24/25 03:37 Bisacodyl 5 Mg Tablet Ec PO DAILY PRN Constipation Docusate Sodium 100 mg 07/25/24 09:00 07/27/24 08:50 Docusate Sodium 100 Mg Capsule PO Not Given BID B[facility] Heparin Sodium (Porcine) 5,000 units 07/25/24 09:00 07/25/24 10:35 Heparin Sodium 5,000 Units/Ml Vial SUB-Q 5,000 units Q12HR BEVRELY Administration Heparin Sodium (Porcine) 6,000 units 07/25/24 18:06 Heparin Sodium 5,000 Units/Ml Vial IV PUSH PRN PRN aPTT less than 55 seconds Heparin Sodium (Porcine) 3,000 units 07/25/24 18:06 Heparin Sodium 5,000 Units/Ml Vial IV PUSH PRN PRN aPTT 55 - 70 seconds Norepinephrine Bitartrate 8 mg in 250 mls @ 22.5 mls/hr 07/25/24 17:00 07/27/24 10:00 Levophed 8 Mg/D5w 250 Ml IV CONT 12 mcg/min .Q11H7M B[facility] 22.5 mls/hr Titration Protocol 12 MCG/MIN Heparin Sodium/Dextrose 25,000 units in 250 mls @ 8 mls/hr 07/25/24 18:10 07/27/24 10:00 Heparin Sodium/D5w 100 Units/Ml IV CONT 800 units/hr .Q24H B[facility] 8 mls/hr Titration Protocol 800 UNITS/HR Fentanyl Citrate 2,500 mcg in 250 mls @ 7.5 mls/hr 07/25/24 20:05 07/27/24 10:00 Fentanyl 2,500 Mcg/Ns 250 Ml IV CONT 75 mcg/hr .[id number] [facility] 7.5 mls/hr Titration Protocol 75 MCG/HR Midazolam HCl 100 mg in 100 mls @ 1 mls/hr 07/25/24 20:05 07/27/24 10:00 Versed 100 Mg/Ns 100 Ml IV CONT 1 mg/hr .Q72H [facility] 1 mls/hr Titration Protocol 1 MG/HR Cefepime HCl 2 gm in 50 mls @ 100 mls/hr 07/26/24 01:00 07/27/24 01:40 Maxipime 2 Gm/Ns 50 Ml IVPB Infused Q24H [facility] Infusion Doxycycline Hyclate 100 mg in 100 mls @ 100 mls/hr 07/26/24 00:00 07/27/24 00:08 Vibramycin 100 Mg/Ns 100 Ml IVPB Infused Q12H [facility] Infusion Amiodarone HCl/Dextrose 360 mg in 200 mls @ 33.333 mls/hr 07/26/24 17:52 07/27/24 10:11 Nexterone 360 Mg/D5w 200 Ml IV CONT 07/27/24 17:51 1 mg/min .Q6H [facility] 33.33 mls/hr Administration Protocol 1 MG/MIN Ipratropium [place] 0.5 mg 07/26/24 14:00 07/27/24 07:55 Ipratropium Br 0.02% Inh Soln 0.5 Mg/2.5 Ml Vial INHALATION 0.5 mg Q6HRT [facility] Administration Levalbuterol HCl 0.63 mg 07/26/24 14:00 07/27/24 07:56 Levalbuterol Neb 1.25 Mg/3 Ml INHALATION 0.63 mg Q6HRT [facility] Administration Melatonin 5 mg 07/25/24 03:37 Melatonin 5 Mg Tablet PO HS PRN Insomnia Metoprolol Tartrate 25 mg 07/25/24 21:00 07/26/24 09:14 Metoprolol Tartrate 25 Mg Tablet PO Not Given Q12HR [facility] Multi-Ingred Cream/Lotion/Oil/Oint 1 applic 07/25/24 21:00 07/27/24 08:50 Mineral Oil/White Petrolatum Ointment EACH EYE 1 applic Q12HR [facility] Administration Mupirocin 1 applic 07/25/24 21:15 07/27/24 08:50 Mupirocin 2% Oint 22 Gm Tube EACH NARE 07/30/24 09:01 1 applic Q12HR [facility] Administration Ondansetron HCl 4 mg 07/25/24 01:56 Ondansetron Inj 4 Mg/2 Ml Vial IV PUSH Q4H PRN Nausea Pantoprazole Sodium 40 mg 07/27/24 09:00 07/27/24 08:46 Pantoprazole Sodium Iv 40 Mg Vial IV PUSH 40 mg QAM [facility] Administration Perflutren Lipid Microsphere 0 ml 07/25/24 03:52 Perflutren Lipid Microspheres 1.5 Ml Vial Diluted To 10 Ml Total Volume IV PUSH 07/28/24 03:52 ONCE PRN adequate visualization Protocol Sodium Chloride 10 ml 07/25/24 22:00 07/27/24 05:23 Central Line Flush IV PUSH 10 ml Q8HR [facility] Administration Sodium Chloride 20 ml 07/25/24 17:48 Central Line Flush IV PUSH PRN PRN after blood draws Vancomycin HCl 1 each 07/26/24 00:08 Vancomycin For Acute Kidney Injury IVPB PRN PRN Vancomycin Protocol Radiology Results: ITS Impressions Venous Doppler Study 07/25/24 17:06 IMPRESSION: 1. Bilateral deep vein thrombosis. ADDENDUM: 07/25/24 1721 I called this result to Valarie Monte. Head CT 07/25/24 23:02 IMPRESSION: No acute intracranial process. Abdomen Ultrasound 07/26/24 08:48 IMPRESSION: 1: Unremarkable limited abdominal ultrasound. Renal Ultrasound 07/26/24 13:02 IMPRESSION: No hydronephrosis or renal calculi. Cortical thinning detected bilaterally. Bilateral simple cysts. Chest X-Ray 07/27/24 06:19 Impression: Small bilateral pleural effusions with mild pulmonary edema pattern. Support tubes, as above. Labs Labs: Laboratory Results - last 24 hr 07/26/24 07/26/24 07/26/24 12:45 16:04 23:05 WBC RBC Hgb Hct MCV MCH MCHC RDW Plt Count MPV Immature Gran % (Auto) Neut % (Auto) Lymph % (Auto) [place] % (Auto) Eos % (Auto) Baso % (Auto) Lymph # (Auto) [place] # (Auto) Eos # (Auto) Baso # (Auto) Abs Immat Gran (auto) Absolute Neuts (auto) Absolute Nucleated RBC Nucleated RBC % APTT 118.3 H 87.7 H Puncture Site ABG pH ABG pCO2 ABG pO2 ABG PO2/FiO2 Ratio ABG HCO3 ABG O2 Saturation ABG O2 Content ABG Base Excess A-a Gradient Oxyhemoglobin Carboxyhemoglobin Methemoglobin Reduced Hemoglobin Total Hemoglobin O2 Delivery Device O2 Liters/Min Minute Volume Vent Rate Vent Mode FiO2 Tidal Volume PEEP Peak Inspir Pressure Pressure Support Sodium Potassium Chloride Carbon Dioxide Anion Gap BUN Creatinine Estim Creat Clear Calc Estimated GFR Glucose Calcium Phosphorus Magnesium Total Bilirubin AST ALT Alkaline Phosphatase Total Protein Albumin Urine Eosinophils None seen U Random Total Protein 18 Urine Creatinine 84.3 Protein/Creat Ratio 2 0.21 H Vancomycin Trough 07/27/24 07/27/24 07/27/24 01:05 05:21 05:22 WBC 10.5 H RBC 4.16 L Hgb 12.6 Hct 39.8 MCV 95.7 MCH 30.3 MCHC 31.7 L RDW 16.7 H Plt Count 147 L MPV 11.3 H Immature Gran % (Auto) 0.3 Neut % (Auto) 71.8 Lymph % (Auto) 16.7 L Dickenson % (Auto) 7.2 Eos % (Auto) 3.4 Baso % (Auto) 0.6 Lymph # (Auto) 1.75 Dickenson # (Auto) 0.8 H Eos # (Auto) 0.4 H Baso # (Auto) 0.1 Abs Immat Gran (auto) 0.03 Absolute Neuts (auto) 7.5 H Absolute Nucleated RBC 0.000 Nucleated RBC % 0.0 APTT 71.2 H Puncture Site Left radial ABG pH 7.322 L ABG pCO2 53.8 H ABG pO2 86.5 ABG PO2/FiO2 Ratio 2.88 ABG HCO3 27.2 H ABG O2 Saturation 95.7 ABG O2 Content 18.0 ABG Base Excess 0.3 A-a Gradient 64.2 Oxyhemoglobin 95.4 Carboxyhemoglobin 0.9 Methemoglobin 0.1 Reduced Hemoglobin 3.6 Total Hemoglobin 13.4 O2 Delivery Device Ventilator O2 Liters/Min Not Reportable Minute Volume Not Reportable Vent Rate 20 Vent Mode Cmv FiO2 30 Tidal Volume 320 PEEP 5 Peak Inspir Pressure Not Reportable Pressure Support Not Reportable Sodium 127 L Potassium 4.3 Chloride 92 L Carbon Dioxide 28 Anion Gap 7 BUN 44 H Creatinine 1.82 H Estim Creat Clear Calc 27 Estimated GFR 26 L Glucose 148 H Calcium 9.4 Phosphorus 3.4 Magnesium 1.8 Total Bilirubin 0.6 AST 157 H ALT 168 H Alkaline Phosphatase 66 Total Protein 6.0 L Albumin 3.1 L Urine Eosinophils U Random Total Protein Urine Creatinine Protein/Creat Ratio 2 Vancomycin Trough 11.7 Quality VTE Prophylaxis VTE prophylaxis: mechanical ordered and pharmacologic ordered
[2024-07-27] MEDS: DOXYCYCLINE 100 MG/NS 100 ML 100 MG/100 ML BAG IVPB (12:00)
--- NOTE | 2024-07-27 14:58 | PM.IMPN ---
Progress Note: A&P Assessment and Plan (1) Acute hypoxic respiratory failure: Code(s): J96.01 - Acute respiratory failure with hypoxia Status: Acute Assessment and Plan: Acute hypoxic and hypercapnic respiratory failure requiring intubation on 07/25/2024 -etiology can be multifactorial, CHF, pneumonia, PE (patient does patient does have extensive DVTs bilaterally on venous Dopplers done on 07/25/2024). Unable to obtain CTA due to acute on chronic kidney disease -could be PE as echocardiogram shows right ventricular chamber dimension is severely enlarged, severe are a dilatation, moderate LA dilatation. Cardiology also thinks this most likely is PE given echocardiogram findings along with her signs and symptoms. -continue CMV mode of ventilation, peep of 5, 30% FiO2 -started patient on bronchodilators -chest x-ray and ABGs reviewed, ventilator adjusted -sedated with fentanyl and Versed infusion, maintain RASS of 0 to -2, daily SBT and SAT 07/26/2024: Echocardiogram Summary 1. Technically difficult study with limited views. 2. Left ventricular chamber dimension is normal. 3. Left ventricular systolic function is normal, estimated at 55-60%. 4. Right ventricular chamber dimension is severely enlarged. 5. Right ventricular systolic function is reduced. 6. Left atrial chamber dimension is moderately enlarged. 7. Right atrial chamber dimension is severely enlarged. 8. There is mild mitral valve regurgitation. 9. There is moderate tricuspid valve regurgitation. 10. Left pleural effusion present. (2) Shock: Code(s): R57.9 - Shock, unspecified Status: Acute Assessment and Plan: Patient was hypotensive upon arrival to the ICU, she was given Lasix 80 mg IV x1 in the ER with no response -patient was given 500 mL IV fluid bolus and albumin -07/25: Central line was inserted and patient was started on Levophed , maintain MAP > 65 mmHg -07/25: Urine cultures growing Gram-negative bacilli -07/25: Preliminary blood culture is negative x2 -started patient on cefepime, doxycycline and vancomycin (07/25) -monitor for urine output (3) Atrial fibrillation with rapid ventricular response: Code(s): I48.91 - Unspecified atrial fibrillation Status: Acute Assessment and Plan: Patient went to AFib RVR, could be related to PE -currently on heparin infusion -continue amiodarone infusion at 1 mg/min -appreciate cardiology evaluation and recommendation (4) Acute on chronic kidney failure: Code(s): N17.9 - Acute kidney failure, unspecified; N18.9 - Chronic kidney disease, unspecified Status: Acute Assessment and Plan: Acute on chronic kidney disease stage III -patient was hypotensive with systolics in the 60s and 70s -she does take Lasix, metoprolol at home -BNP was greater than 30,000, received Lasix 80 mg IV x1 in the ER with not much response -nephrology has been consulted, appreciate their evaluation and recommendations -status post a annulus at 100 mL/hour for 1000 mL which has been completed -07/26: renal ultrasound with no hydronephrosis or renal calculi. Cortical thinning detected bilaterally, bilateral simple cysts. -continue to monitor urine output, renal function and electrolytes -nephrology following the patient -low urine output with creatinine improving (5) DVT, bilateral lower limbs: Code(s): I82.403 - Acute embolism and thrombosis of unspecified deep veins of lower extremity, bilateral Status: Acute Assessment and Plan: 07/25/2024: Venous Dopplers: Bilateral extensive DVTs -currently on heparin infusion (6) Electrolyte imbalance: Code(s): E87.8 - Other disorders of electrolyte and fluid balance, not elsewhere classified Status: Acute Assessment and Plan: Patient was hyperkalemic, she does take potassium supplements at home -treated in the ICU -potassium has normalized this morning, will continue to monitor Subjective Date/time seen: 07/27/24 14:58 Interval history: Assumed care today. As per nursing team initiated comfort care. Exam Narrative: General: Obese female, intubated, sedated in no acute distress HEENT:? Pupils are equal and reactive, sclera is clear Neck:? Thick neck Respiratory:? Coarse breath sounds bilaterally, decreased at bases, no wheezing, adequate air entry Cardiac:? Irregularly irregular, tachycardia Abdomen:? Soft, non tender, non distended, morbidly obese, hypoactive bowel sounds Extremities:? Bilateral lower extremity edema, palpable pedal pulses Neuro:? Patient is intubated, sedated, does not open her eyes or follow simple commands Skin:? No skin lesions noted Psych:? Unable to assess Const: General: in distress HENMT: Ears: TM's normal bilaterally Face/Nose/Sinus: Normal nares present Mouth: Yes moist mucous membranes Eyes: General: appearance normal, both eyes and all related structures Sclera: sclerae normal Pupils: Equal, round and reactive pupils present Neck: Neck: supple Resp: Auscultation: rales bilateral at the base and diminished lung sounds bilateral Cardio: Rate: regular rate Rhythm: abnormal rhythm Skin: General skin exam: normal color Wounds: no wounds Neuro: Cranial nerves: Yes Equal, round and reactive pupils present Speech: normal speech Motor exam (neuro): 5/5 motor strength present throughout Extrem: General: normal to inspection and pedal edema bilaterally Psych: Mental Status: mental status grossly normal Objective Data Vital Signs Vital Signs: Vital Signs - 24 hr 07/26/24 15:01 07/26/24 15:36 07/26/24 15:36 Temperature Pulse Rate 123 H 124 H 124 H Respiratory Rate 20 24 H 24 H Blood Pressure Pulse Oximetry Oxygen Delivery Fraction of Inspired Oxygen 07/26/24 16:00 07/26/24 16:00 07/26/24 16:00 Temperature Pulse Rate 120 H 117 H Respiratory Rate 20 Blood Pressure Pulse Oximetry 97 Oxygen Delivery Mechanical Ventilation Fraction of Inspired Oxygen 30 30 07/26/24 16:00 07/26/24 17:12 07/26/24 17:33 Temperature 97.6 F Pulse Rate 117 H 128 H 120 H Respiratory Rate 20 Blood Pressure 93/59 L 86/71 L Pulse Oximetry 97 97 Oxygen Delivery Mechanical Ventilation Fraction of Inspired Oxygen 30 07/26/24 17:34 07/26/24 17:36 07/26/24 18:00 Temperature Pulse Rate 120 H 120 H 120 H Respiratory Rate 20 Blood Pressure 86/71 L Pulse Oximetry Oxygen Delivery Fraction of Inspired Oxygen 07/26/24 18:00 07/26/24 20:00 07/26/24 20:00 Temperature 97.8 F 97.9 F Pulse Rate 120 H 120 H Respiratory Rate 20 20 Blood Pressure 97/56 L 92/63 L Pulse Oximetry 98 94 Oxygen Delivery Fraction of Inspired Oxygen 30 07/26/24 20:00 07/26/24 20:00 07/26/24 20:00 Temperature Pulse Rate 119 H 119 H 119 H Respiratory Rate 20 Blood Pressure 92/63 L 92/63 L Pulse Oximetry Oxygen Delivery Fraction of Inspired Oxygen 07/26/24 20:00 07/26/24 20:00 07/26/24 20:04 Temperature Pulse Rate 119 H 119 H 121 H Respiratory Rate 20 Blood Pressure Pulse Oximetry 95 Oxygen Delivery Mechanical Ventilation Fraction of Inspired Oxygen 30 07/26/24 20:04 07/26/24 20:15 07/26/24 20:30 Temperature Pulse Rate 121 H 120 H 124 H Respiratory Rate 21 H 20 20 Blood Pressure Pulse Oximetry 94 Oxygen Delivery Mechanical Ventilation Fraction of Inspired Oxygen 30 07/26/24 22:00 07/26/24 22:00 07/26/24 22:00 Temperature 98.0 F Pulse Rate 128 H 128 H 128 H Respiratory Rate 20 Blood Pressure 88/51 L 88/51 L Pulse Oximetry 95 Oxygen Delivery Fraction of Inspired Oxygen 07/26/24 22:00 07/26/24 22:00 07/26/24 22:00 Temperature Pulse Rate 128 H 128 H 128 H Respiratory Rate 20 20 Blood Pressure 88/51 L Pulse Oximetry Oxygen Delivery Fraction of Inspired Oxygen 07/26/24 22:15 07/26/24 22:30 07/26/24 22:32 Temperature 98 F 98 F Pulse Rate 126 H 125 H 134 H Respiratory Rate 20 20 Blood Pressure 98/49 L 85/53 L 85/53 L Pulse Oximetry 95 95 Oxygen Delivery Fraction of Inspired Oxygen 07/26/24 22:45 07/26/24 22:53 07/26/24 23:09 Temperature 98 F Pulse Rate 138 H 135 H 132 H Respiratory Rate 20 Blood Pressure 112/77 102/68 Pulse Oximetry 95 95 Oxygen Delivery Mechanical Ventilation Fraction of Inspired Oxygen 30 07/26/24 23:09 07/26/24 23:45 07/26/24 23:45 Temperature 97.9 F Pulse Rate 128 H 141 H 141 H Respiratory Rate 20 Blood Pressure 102/68 118/76 118/76 Pulse Oximetry 92 Oxygen Delivery Fraction of Inspired Oxygen 07/26/24 23:47 07/26/24 23:51 07/27/24 00:00 Temperature 97.9 F Pulse Rate 138 H 125 H Respiratory Rate 20 20 Blood Pressure 117/77 Pulse Oximetry 95 94 Oxygen Delivery Mechanical Ventilation Fraction of Inspired Oxygen 30 30 07/27/24 00:00 07/27/24 00:00 07/27/24 00:00 Temperature Pulse Rate 131 H 131 H 129 H Respiratory Rate 20 20 Blood Pressure 117/77 Pulse Oximetry Oxygen Delivery Fraction of Inspired Oxygen 07/27/24 00:00 07/27/24 00:00 07/27/24 00:15 Temperature 97.9 F Pulse Rate 131 H 129 H 128 H Respiratory Rate 20 Blood Pressure 117/77 113/74 Pulse Oximetry 94 Oxygen Delivery Fraction of Inspired Oxygen 07/27/24 00:30 07/27/24 01:00 07/27/24 01:00 Temperature 97.9 F 97.9 F Pulse Rate 134 H 130 H 127 H Respiratory Rate 20 21 H Blood Pressure 104/50 L 110/66 110/66 Pulse Oximetry 95 94 Oxygen Delivery Fraction of Inspired Oxygen 07/27/24 01:07 07/27/24 01:15 07/27/24 01:38 Temperature 97.9 F Pulse Rate 132 H 122 H 129 H Respiratory Rate 21 H 20 Blood Pressure 108/60 Pulse Oximetry 95 94 Oxygen Delivery Mechanical Ventilation Fraction of Inspired Oxygen 30 07/27/24 01:38 07/27/24 01:45 07/27/24 01:45 Temperature 98 F Pulse Rate 129 H 124 H 124 H Respiratory Rate 20 20 Blood Pressure 78/35 L 78/35 L Pulse Oximetry 94 Oxygen Delivery Fraction of Inspired Oxygen 07/27/24 01:47 07/27/24 02:00 07/27/24 02:00 Temperature 98 F Pulse Rate 123 H 126 H 125 H Respiratory Rate 20 20 Blood Pressure 80/46 L Pulse Oximetry 94 Oxygen Delivery Fraction of Inspired Oxygen 07/27/24 02:00 07/27/24 02:00 07/27/24 02:00 Temperature Pulse Rate 125 H 125 H 125 H Respiratory Rate 20 20 Blood Pressure 80/46 L Pulse Oximetry Oxygen Delivery Fraction of Inspired Oxygen 07/27/24 02:00 07/27/24 04:00 07/27/24 04:00 Temperature 97.8 F Pulse Rate 129 H 135 H 129 H Respiratory Rate 20 20 21 H Blood Pressure 99/71 L Pulse Oximetry 95 95 Oxygen Delivery Mechanical Ventilation Fraction of Inspired Oxygen 30 07/27/24 04:00 07/27/24 04:00 07/27/24 04:00 Temperature Pulse Rate 129 H 129 H Respiratory Rate 20 Blood Pressure 99/71 L Pulse Oximetry Oxygen Delivery Fraction of Inspired Oxygen 30 07/27/24 04:00 07/27/24 04:00 07/27/24 04:00 Temperature Pulse Rate 129 H 129 H 128 H Respiratory Rate 20 Blood Pressure 99/71 L Pulse Oximetry Oxygen Delivery Fraction of Inspired Oxygen 07/27/24 04:58 07/27/24 04:58 07/27/24 05:17 Temperature Pulse Rate 124 H 124 H 130 H Respiratory Rate Blood Pressure 113/60 113/60 85/50 L Pulse Oximetry Oxygen Delivery Fraction of Inspired Oxygen 07/27/24 05:17 07/27/24 05:21 07/27/24 05:30 Temperature 97.8 F 97.6 F Pulse Rate 130 H 131 H 129 H Respiratory Rate 20 20 Blood Pressure 85/50 L 96/72 L Pulse Oximetry 93 96 96 Oxygen Delivery Mechanical Ventilation Fraction of Inspired Oxygen 30 07/27/24 06:00 07/27/24 06:00 07/27/24 06:00 Temperature Pulse Rate 128 H 134 H 132 H Respiratory Rate 20 Blood Pressure 112/64 112/64 Pulse Oximetry Oxygen Delivery Fraction of Inspired Oxygen 07/27/24 06:00 07/27/24 06:00 07/27/24 06:00 Temperature 97.2 F L Pulse Rate 134 H 135 H 126 H Respiratory Rate 20 20 Blood Pressure 112/64 Pulse Oximetry 96 Oxygen Delivery Fraction of Inspired Oxygen 07/27/24 06:14 07/27/24 06:31 07/27/24 07:40 Temperature 97.2 F L Pulse Rate 129 H 138 H 126 H Respiratory Rate 20 Blood Pressure 106/64 70/45 L Pulse Oximetry 96 96 Oxygen Delivery Mechanical Ventilation Fraction of Inspired Oxygen 30 07/27/24 07:55 07/27/24 08:00 07/27/24 08:00 Temperature Pulse Rate 132 H 126 H 126 H Respiratory Rate 23 H 20 Blood Pressure 105/69 Pulse Oximetry Oxygen Delivery Fraction of Inspired Oxygen 07/27/24 08:00 07/27/24 08:00 07/27/24 08:00 Temperature Pulse Rate 126 H 126 H 120 H Respiratory Rate 20 20 Blood Pressure 105/69 Pulse Oximetry 95 Oxygen Delivery Mechanical Ventilation Fraction of Inspired Oxygen 30 07/27/24 08:00 07/27/24 08:00 07/27/24 08:00 Temperature 96.8 F L Pulse Rate 120 H 120 H Respiratory Rate 20 Blood Pressure 105/69 Pulse Oximetry 95 Oxygen Delivery Fraction of Inspired Oxygen 30 07/27/24 08:15 07/27/24 08:49 07/27/24 10:00 Temperature Pulse Rate 133 H 127 H 130 H Respiratory Rate 22 H 20 Blood Pressure 116/97 H Pulse Oximetry Oxygen Delivery Fraction of Inspired Oxygen 07/27/24 10:00 07/27/24 10:00 07/27/24 10:00 Temperature Pulse Rate 130 H 130 H 130 H Respiratory Rate 20 Blood Pressure 94/69 L Pulse Oximetry Oxygen Delivery Fraction of Inspired Oxygen 07/27/24 10:00 07/27/24 10:11 07/27/24 10:11 Temperature 96.7 F L Pulse Rate 130 H 130 H 130 H Respiratory Rate 20 Blood Pressure 96/64 L 94/69 L 94/69 L Pulse Oximetry 95 Oxygen Delivery Fraction of Inspired Oxygen 07/27/24 11:42 07/27/24 12:00 Temperature 96.7 F L Pulse Rate 123 H 129 H Respiratory Rate 20 Blood Pressure 100/56 L Pulse Oximetry 95 94 Oxygen Delivery Mechanical Ventilation Fraction of Inspired Oxygen 30 Intake/Output Intake/Output: Intake & Output 07/24/24 07/25/24 07/26/24 07/27/24 23:59 23:59 23:59 23:59 Intake Total 376.3 1983.3 1355.0 Output Total 50 1050 400 Balance 326.3 933.3 955.0 Meds/Results Medications: Active Medications Generic Name Dose Route Start Last Admin Trade Name Freq PRN Reason Stop Dose Admin Acetaminophen 650 mg 07/25/24 03:37 Acetaminophen 325 Mg Tablet PO Q4H PRN Mild Pain (1-3) or Fever Bisacodyl 5 mg 07/25/24 03:37 Bisacodyl 5 Mg Tablet Ec PO DAILY PRN Constipation Docusate Sodium 100 mg 07/25/24 09:00 07/27/24 08:50 Docusate Sodium 100 Mg Capsule PO Not Given BID BEVERLY Heparin Sodium (Porcine) 5,000 units 07/25/24 09:00 07/25/24 10:35 Heparin Sodium 5,000 Units/Ml Vial SUB-Q 5,000 units Q12HR BEVERLY Administration Heparin Sodium (Porcine) 6,000 units 07/25/24 18:06 Heparin Sodium 5,000 Units/Ml Vial IV PUSH PRN PRN aPTT less than 55 seconds Heparin Sodium (Porcine) 3,000 units 07/25/24 18:06 Heparin Sodium 5,000 Units/Ml Vial IV PUSH PRN PRN aPTT 55 - 70 seconds Norepinephrine Bitartrate 8 mg in 250 mls @ 22.5 mls/hr 07/25/24 17:00 07/27/24 10:00 Levophed 8 Mg/D5w 250 Ml IV CONT 12 mcg/min .Q11H7M BEVERLY 22.5 mls/hr Titration Protocol 12 MCG/MIN Heparin Sodium/Dextrose 25,000 units in 250 mls @ 8 mls/hr 07/25/24 18:10 07/27/24 10:00 Heparin Sodium/D5w 100 Units/Ml IV CONT 800 units/hr .Q24H BEVERLY 8 mls/hr Titration Protocol 800 UNITS/HR Fentanyl Citrate 2,500 mcg in 250 mls @ 7.5 mls/hr 07/25/24 20:05 07/27/24 10:00 Fentanyl 2,500 Mcg/Ns 250 Ml IV CONT 75 mcg/hr .[id number] BEVERLY 7.5 mls/hr Titration Protocol 75 MCG/HR Midazolam HCl 100 mg in 100 mls @ 1 mls/hr 07/25/24 20:05 07/27/24 10:00 Versed 100 Mg/Ns 100 Ml IV CONT 1 mg/hr .Q72H B[facility] 1 mls/hr Titration Protocol 1 MG/HR Cefepime HCl 2 gm in 50 mls @ 100 mls/hr 07/26/24 01:00 07/27/24 01:40 Maxipime 2 Gm/Ns 50 Ml IVPB Infused Q24H BEVERLY Infusion Doxycycline Hyclate 100 mg in 100 mls @ 100 mls/hr 07/26/24 00:00 07/27/24 12:00 Vibramycin 100 Mg/Ns 100 Ml IVPB 100 mls/hr Q12H B[facility] Administration Amiodarone HCl/Dextrose 360 mg in 200 mls @ 33.333 mls/hr 07/26/24 17:52 07/27/24 10:11 Nexterone 360 Mg/D5w 200 Ml IV CONT 07/27/24 17:51 1 mg/min .Q6H BEVERLY 33.33 mls/hr Administration Protocol 1 MG/MIN Ipratropium [place] 0.5 mg 07/26/24 14:00 07/27/24 13:39 Ipratropium Br 0.02% Inh Soln 0.5 Mg/2.5 Ml Vial INHALATION 0.5 mg Q6HRT [place] Administration Levalbuterol HCl 0.63 mg 07/26/24 14:00 07/27/24 13:38 Levalbuterol Neb 1.25 Mg/3 Ml INHALATION 0.63 mg Q6HRT [place] Administration Melatonin 5 mg 07/25/24 03:37 Melatonin 5 Mg Tablet PO HS PRN Insomnia Metoprolol Tartrate 25 mg 07/25/24 21:00 07/26/24 09:14 Metoprolol Tartrate 25 Mg Tablet PO Not Given Q12HR B[facility] Multi-Ingred Cream/Lotion/Oil/Oint 1 applic 07/25/24 21:00 07/27/24 08:50 Mineral Oil/White Petrolatum Ointment EACH EYE 1 applic Q12HR [place] Administration Mupirocin 1 applic 07/25/24 21:15 07/27/24 08:50 Mupirocin 2% Oint 22 Gm Tube EACH NARE 07/30/24 09:01 1 applic Q12HR B[facility] Administration Ondansetron HCl 4 mg 07/25/24 01:56 Ondansetron Inj 4 Mg/2 Ml Vial IV PUSH Q4H PRN Nausea Pantoprazole Sodium 40 mg 07/27/24 09:00 07/27/24 08:46 Pantoprazole Sodium Iv 40 Mg Vial IV PUSH 40 mg QAM B[facility] Administration Perflutren Lipid Microsphere 0 ml 07/25/24 03:52 Perflutren Lipid Microspheres 1.5 Ml Vial Diluted To 10 Ml Total Volume IV PUSH 07/28/24 03:52 ONCE PRN adequate visualization Protocol Sodium Chloride 10 ml 07/25/24 22:00 07/27/24 05:23 Central Line Flush IV PUSH 10 ml Q8HR B[place] Administration Sodium Chloride 20 ml 07/25/24 17:48 Central Line Flush IV PUSH PRN PRN after blood draws Vancomycin HCl 1 each 07/26/24 00:08 Vancomycin For Acute Kidney Injury IVPB PRN PRN Vancomycin Protocol Radiology Results: ITS Impressions Venous Doppler Study 07/25/24 17:06 IMPRESSION: 1. Bilateral deep vein thrombosis. ADDENDUM: 07/25/24 0751 I called this result to Valarie Monte. Head CT 07/25/24 23:02 IMPRESSION: No acute intracranial process. Abdomen Ultrasound 07/26/24 08:48 IMPRESSION: 1: Unremarkable limited abdominal ultrasound. Renal Ultrasound 07/26/24 13:02 IMPRESSION: No hydronephrosis or renal calculi. Cortical thinning detected bilaterally. Bilateral simple cysts. Chest X-Ray 07/27/24 06:19 Impression: Small bilateral pleural effusions with mild pulmonary edema pattern. Support tubes, as above. Labs Labs: Laboratory Results - last 24 hr 07/26/24 07/26/24 07/27/24 16:04 23:05 01:05 WBC RBC Hgb Hct MCV MCH MCHC RDW Plt Count MPV Immature Gran % (Auto) Neut % (Auto) Lymph % (Auto) [place] % (Auto) Eos % (Auto) Baso % (Auto) Lymph # (Auto) [place] # (Auto) Eos # (Auto) Baso # (Auto) Abs Immat Gran (auto) Absolute Neuts (auto) Absolute Nucleated RBC Nucleated RBC % APTT 118.3 H 87.7 H Puncture Site ABG pH ABG pCO2 ABG pO2 ABG PO2/FiO2 Ratio ABG HCO3 ABG O2 Saturation ABG O2 Content ABG Base Excess A-a Gradient Oxyhemoglobin Carboxyhemoglobin Methemoglobin Reduced Hemoglobin Total Hemoglobin O2 Delivery Device O2 Liters/Min Minute Volume Vent Rate Vent Mode FiO2 Tidal Volume PEEP Peak Inspir Pressure Pressure Support Sodium Potassium Chloride Carbon Dioxide Anion Gap BUN Creatinine Estim Creat Clear Calc Estimated GFR Glucose Calcium Phosphorus Magnesium Total Bilirubin AST ALT Alkaline Phosphatase Total Protein Albumin Vancomycin Trough 11.7 07/27/24 07/27/24 05:21 05:22 WBC 10.5 H RBC 4.16 L Hgb 12.6 Hct 39.8 MCV 95.7 MCH 30.3 MCHC 31.7 L RDW 16.7 H Plt Count 147 L MPV 11.3 H Immature Gran % (Auto) 0.3 Neut % (Auto) 71.8 Lymph % (Auto) 16.7 L [place] % (Auto) 7.2 Eos % (Auto) 3.4 Baso % (Auto) 0.6 Lymph # (Auto) 1.75 [place] # (Auto) 0.8 H Eos # (Auto) 0.4 H Baso # (Auto) 0.1 Abs Immat Gran (auto) 0.03 Absolute Neuts (auto) 7.5 H Absolute Nucleated RBC 0.000 Nucleated RBC % 0.0 APTT 71.2 H Puncture Site Left radial ABG pH 7.322 L ABG pCO2 53.8 H ABG pO2 86.5 ABG PO2/FiO2 Ratio 2.88 ABG HCO3 27.2 H ABG O2 Saturation 95.7 ABG O2 Content 18.0 ABG Base Excess 0.3 A-a Gradient 64.2 Oxyhemoglobin 95.4 Carboxyhemoglobin 0.9 Methemoglobin 0.1 Reduced Hemoglobin 3.6 Total Hemoglobin 13.4 O2 Delivery Device Ventilator O2 Liters/Min Not Reportable Minute Volume Not Reportable Vent Rate 20 Vent Mode Cmv FiO2 30 Tidal Volume 320 PEEP 5 Peak Inspir Pressure Not Reportable Pressure Support Not Reportable Sodium 127 L Potassium 4.3 Chloride 92 L Carbon Dioxide 28 Anion Gap 7 BUN 44 H Creatinine 1.82 H Estim Creat Clear Calc 27 Estimated GFR 26 L Glucose 148 H Calcium 9.4 Phosphorus 3.4 Magnesium 1.8 Total Bilirubin 0.6 AST 157 H ALT 168 H Alkaline Phosphatase 66 Total Protein 6.0 L Albumin 3.1 L Vancomycin Trough Hospitalist MIPS Advance Care Plan I have confirmed that the patient's Advanced Care Plan is present, code status is documented, or surrogate decision maker is listed in patient medical record.: Yes Medication Reconciliation I have utilized all available resources to obtain, update and review the patients current medications (includes all prescriptions, OTC, herbals, cannabis, and nutritional supplements).: Yes
[2024-07-27] MEDS: MIDAZOLAM 100MG/NS 100ML(*CRX) 100 MG/100 ML BAG IV CONT (16:15)
[2024-07-27] MEDS: LORazepam INJ (*CRX) 2 MG/ML VIAL IV PUSH ×3 (18:04→21:54)
[2024-07-27] MEDS: MORPHINE SULFATE INJ (*CRX) 10 MG/ML AMP 5 MG IV PUSH (18:05)
--- NOTE | 2024-07-27 18:11 | PC.NURSE ---
Family expressed wishes to withdraw care at approximately 5:30pm. MD called and informed. Orders to place on ICU comfort care obtained. Respiratory came to the room to assist with extubation. Family at the bedside.
[2024-07-27] MEDS: MORPHINE SULFATE (*CRX) 2 MG/ML INJ IV PUSH ×2 (19:29→20:51)
--- NOTE | 2024-07-27 23:12 | PC.NURSE ---
[id number] Report given to MARIAM Smith
--- NOTE | 2024-07-28 00:26 | PC.NURSE ---
This patient, Klaudia Larry, was transferred to [facility] on 07/27/24 at 2300. Personal belongings sent with patient. Report given to MARIAM Smith. Appropriate documentation sent with patient.
--- NOTE | 2024-07-28 00:26 | PC.NURSE ---
07/27/24 2310 Patient transferred to [facility] via bed, personal belongings with patient.
--- NOTE | 2024-07-28 00:27 | PC.NURSE ---
Patient's daughter/CARLI Bolaños notified of patient moving to room 301. All questions answered.
[2024-07-28 13:58] LABS: Creatinine, Random Urine 85 mg/dL (20-275); Total Prot/Creat ratio mg/mg 0.188 (0.024-0.184); Total Protein/Creatinine Ratio 188 mg/g creat (24-184)
[2024-07-28 15:28] LABS: Calcium/Creatinine Ratio, Ur 16 mg/g creat (10-320); Urine Calcium, Random 3.4 mg/dL; Urine Creatinine, Random 209 mg/dL (20-275)
[2024-07-29 01:58] LABS: Protein, Total 5.1 g/dL (6.1-8.1)
[2024-07-29 12:08] LABS: Abnormal Protein Band 1 0.2 g/dL (NONE DETECTED); Abnormal Protein Band 2 0.1 g/dL (NONE DETECTED); Albumin 2.9 g/dL (3.8-4.8); Alpha 1 Globulin 0.4 g/dL (0.2-0.3); Alpha 2 Globulin 0.6 g/dL (0.5-0.9); Beta 1 Globulin 0.3 g/dL (0.4-0.6); Gamma Globulin 0.6 g/dL (0.8-1.7)
[2024-07-29 12:28] LABS: Kappa\\Lambda Light Chains 0.72 (0.26-1.65); Lambda Light Chain 28.9 mg/L (5.7-26.3)
--- NOTE | 2024-07-29 18:28 | PM.DDS ---
Discharge Summary Date and Time Date of : 07/28/24 Time of : 00:15 Provider Pronounced By: 2 RNs Name of First RN That Pronounced: Sarah Butt Name of Second RN That Pronounced: Keyonna Way Probable Cause of Probable Cause of : Acute hypoxic respiratory failure Summary Hospital Course: Klaudia Larry is a 84 year old female with past medical history of hypertension, hyperlipidemia, CHF, previous PE on Eliquis, atrial fibrillation, spondylosis, opioid dependence, obesity hypoventilation syndrome, esophageal web, chronic kidney disease stage 3, chronic low back pain, general anxiety disorder, GERD, peripheral vascular disease, presented the ED on 07/25/2024 with complains of fatigue, shortness of breath, dizziness, generalized weakness. She was discharged from the hospital 06/14/2024 for AFib RVR, acute respiratory failure, altered mental status, CHF exacerbation, NSTEMI, acute on chronic kidney disease. Patient was admitted multiple times in the hospital. Due to multiple comorbid conditions family chose comfort care and and eventually patient on 07/28/2024 due to respiratory failure Additional Data Confirmation of as documented by pronouncing clinician: Pupillary Reflex, Palpable Pulses, Response to Stimuli, Heart Tones and Breath Sounds Name of Provider Notified: none Time Provider Notified: 00:15 [employer] Notified: Yes Date [facility] Notified of : 07/28/24 Time [facility] Notified of : 00:30
== END 2024-07-28 00:15 | disposition expired | DRG 208 ==
LOC: ANHED 22:52 → ANHIMU 07-25 02:36 → ANHICU 07-25 12:25 → ANH3MEDSUR 07-29 14:52 → ANHICU 07-29 14:52
PROVIDERS: Internal Medicine; Internal Medicine Nephrology; Nurse Practitioner Gerontology; Physician Assistant; Admitting Provider Internal Medicine; Emergency Provider Student in an Organized Health Care Education/Training Program; PCP Family Medicine; Visit Provider General Practice
DX: J96.01 Acute respiratory failure with hypoxia (principal); Q39.4 Esophageal web; K72.00 Acute and subacute hepatic failure without coma; I50.33 Acute on chronic diastolic (congestive) heart failure; E66.2 Morbid (severe) obesity with alveolar hypoventilation; E87.1 Hypo-osmolality and hyponatremia; I48.20 Chronic atrial fibrillation, unspecified; Z68.42 Body mass index [BMI] 45.0-49.9, adult; N17.9 Acute kidney failure, unspecified; I82.413 Acute embolism and thrombosis of femoral vein, bilateral; I13.0 Hypertensive heart and chronic kidney disease with heart failure and stage 1 through stage 4 chronic kidney disease, or unspecified chronic kidney disease; R57.9 Shock, unspecified; Z66 Do not resuscitate; B96.89 Other specified bacterial agents as the cause of diseases classified elsewhere; E78.5 Hyperlipidemia, unspecified; E87.5 Hyperkalemia; F41.1 Generalized anxiety disorder; G89.29 Other chronic pain; I73.9 Peripheral vascular disease, unspecified; I25.2 Old myocardial infarction; I48.91 Unspecified atrial fibrillation; K21.9 Gastro-esophageal reflux disease without esophagitis; M54.9 Dorsalgia, unspecified; N18.31 Chronic kidney disease, stage 3a; R82.71 Bacteriuria; Z86.711 Personal history of pulmonary embolism; Z79.01 Long term (current) use of anticoagulants; Z87.891 Personal history of nicotine dependence
CPT/HCPCS: 36415; 36600; 70450; 71045; 76705; 76775; 80048; 80053; 80202; 81001; 81002; 81050; 82140; 82310; 82375; 82550; 82570; 82805; 82948; 83050; 83605; 83735; 83874; 83880; 83883; 83935; 84100; 84145; 84155; 84156; 84165; 84166; 84300; 84484; 84540; 85018; 85025; 85380; 85610; 85730; 85999; 86140; 87040; 87086; 87186; 87641; 93005; 93306; 93308; 93970; 94002; 94003; 94640; 96374; 96375; 99285; A9270; C1751; J0282; J0330; J0692; J1644; J1815; J1940; J2060; J2250; J2270; J2470; J3010; J3370; J7030; J7040; J7050; P9047